=== PATIENT | male | born 1955 | race American Indian/Alaskan Native ===

== ENCOUNTER 2017-01-10 01:28 | Emergency (ER) | payer MEDICARE ==
[2017-01-10] MEDS ORDERED: NACL 0.9% 1000 ML 1,000 ML IV ONE (03:59)
[2017-01-10 05:00] LABS: Hematocrit 31.3 % (35.5-45.6); Hemoglobin 10.5 gm/dl (11.8-15.2); Mean Corpuscular HGB Conc 34 % (32-34); Mean Corpuscular Hemoglobin 34 pg (28-32); Mean Corpuscular Volume 102 fl (84-94); Platelet Count 213 K/mm3 (140-440); Red Blood Count 3.06 M/mm3 (3.65-5.03); Red Cell Distribution Width 14.4 % (13.2-15.2); White Blood Count 4.7 K/mm3 (4.5-11.0)
[2017-01-10 05:09] LABS: Albumin 4.2 g/dL (3.9-5); Albumin/Globulin Ratio 1.3 %; Bilirubin,Total 0.3 mg/dL (0.1-1.2); Calcium 9.3 mg/dL (8.4-10.2); Chloride 97.9 mmol/L (98-107); Total Protein 7.5 g/dL (6.3-8.2)
[2017-01-10 05:55] LABS: Anisocytosis 1+; Blastocytes % (Manual) 0 %; Ovalocytes 1+
[2017-01-10 05:56] LABS: Diff Status Complete; Helmet Cells Few; Tear Drop Cells Few
[2017-01-10] MEDS ORDERED: MORPHINE IV ONE (12:28)
[2017-01-10] MEDS ORDERED: PROTONIX IV ONE (13:00)
--- NOTE | 2017-01-10 16:03 | Emergency Department Report ---
HPI - General Chief Complaint: GI Bleed Time Seen by Provider: 01/10/17 11:34 - HPI HPI: The patient is 61-year-old male presents for evaluation of abdominal pain. The patient reports lower abdominal pain and dark tar stools for the past one day. He states his abdominal pain has been moderate, 7/10 in severity, cramping in quality, constant since onset. He is not currently experiencing any rectal bleeding. The patient denies fever, chills, night sweats, diarrhea, dysuria, hematuria, hematemesis, epistaxis, or easy bruising or bleeding. ED Past Medical Hx - Past Medical History Previous Medical History?: Yes Hx Hypertension: Yes Hx CVA: Yes (x2) Hx Heart Attack/AMI: Yes (x4) Hx Congestive Heart Failure: No Hx Diabetes: Yes Hx Renal Disease: Yes (end-stage renal disease) Hx Seizures: Yes Hx Asthma: No Hx COPD: No Additional medical history: Cardiac Stents, dialysis M-W-F - Surgical History Past Surgical History?: Yes Hx Coronary Stent: Yes Additional Surgical History: Cardiac stents 3 months ago 08/22? av graft to left arm - Social History Smoking Status: Never Smoker Substance Use Type: None - Medications Home Medications: Home Medications Medication Instructions Recorded Confirmed Last Taken Type Calcium Acetate 1,334 mg PO TID 05/14/13 12/30/16 Unknown History Aspirin [Aspirin BABY CHEW TAB] 81 mg PO DAILY 03/02/14 12/30/16 03/02/14 09:00 History amLODIPine [Norvasc] 10 mg PO DAILY 03/02/14 12/30/16 03/02/14 09:00 History Rosuvastatin (Nf) [Crestor] 20 mg PO QHS #1 tablet 03/08/14 12/30/16 Unknown Rx diphenhydrAMINE [Benadryl CAP] 50 mg PO Q8HR PRN #30 capsule 12/16/16 12/30/16 Unknown Rx HYDROcodone/ACETAMINOPHEN [[place] 1 each PO Q4-6H PRN #12 tablet 12/31/16 Unknown Rx 5-325 Tablet] hydrOXYzine HCL [Atarax] 25 mg PO Q6H PRN #20 tablet 12/31/16 Unknown Rx HYDROcodone/APAP 7.5-325 [[place] 1 each PO Q8HR PRN #10 tablet 01/10/17 Unknown Rx 7.5-325 mg TAB] Omeprazole Magnesium [PriLOSEC Otc] 20 mg PO QDAY #14 tablet. 01/10/17 Unknown Rx Ondansetron [Zofran TAB] 4 mg PO Q8HR PRN #15 tablet 01/10/17 Unknown Rx ED Review of Systems ROS: Stated complaint: ABD AND LOWER BACK PAIN Other details as noted in HPI Constitutional: denies: fever ENT: denies: throat or neck pain Respiratory: denies: cough, shortness of breath Cardiovascular: denies: chest pain Endocrine: denies unexplained weight loss or gain Gastrointestinal: reports abdominal pain, nausea, dark stools Genitourinary: denies: dysuria Musculoskeletal: denies: leg swelling Skin: denies: rash Neurological: denies: headache Hematological/Lymphatic: denies: easy bleeding or easy bruising Psych: denies sadness or hopelessness Physical Exam - Physical Exam Vital Signs: Vital Signs 01/10/17 01/10/17 01/10/17 03:46 10:16 10:24 Temperature 98.1 F 98.4 F Pulse Rate 79 84 79 Respiratory 18 14 22 Rate Blood Pressure 143/78 Blood Pressure 133/70 [Right] O2 Sat by Pulse 96 97 Oximetry 01/10/17 01/10/17 01/10/17 10:30 11:00 11:30 Temperature Pulse Rate 80 80 76 Respiratory 16 16 15 Rate Blood Pressure 133/70 150/78 152/75 Blood Pressure [Right] O2 Sat by Pulse 98 90 97 Oximetry 01/10/17 01/10/17 12:00 13:01 Temperature Pulse Rate 81 77 Respiratory 17 13 Rate Blood Pressure 156/78 152/75 Blood Pressure [Right] O2 Sat by Pulse 95 94 Oximetry Physical Exam: General: well-nourished, well-developed, no acute distress Head: Normocephalic, atraumatic Eyes: normal sclera ENT: Mucous membranes are pink and moist Neck: trachea midline, neck supple, No neck stiffness, no cervical adenopathy Respiratory: Breath sounds equal bilaterally, no wheezing, rales, or rhonchi Cardio: S1 and S2 present, no murmurs, rubs, gallops, capillary refill is brisk Abdomen: Normoactive bowel sounds, soft abdomen, generalized tenderness, no rigidity, no guarding or rebound tenderness Chest WALL/Back: No tenderness to palpation of the chest wall, no CVA tenderness with percussion Musc: No pitting edema Skin: No rash Neuro: no facial drooping, normal speech Psych: Normal affect ED Course Vital Signs 01/10/17 01/10/17 01/10/17 03:46 10:16 10:24 Temperature 98.1 F 98.4 F Pulse Rate 79 84 79 Respiratory 18 14 22 Rate Blood Pressure 143/78 Blood Pressure 133/70 [Right] O2 Sat by Pulse 96 97 Oximetry 01/10/17 01/10/17 01/10/17 10:30 11:00 11:30 Temperature Pulse Rate 80 80 76 Respiratory 16 16 15 Rate Blood Pressure 133/70 150/78 152/75 Blood Pressure [Right] O2 Sat by Pulse 98 90 97 Oximetry 01/10/17 01/10/17 12:00 13:01 Temperature Pulse Rate 81 77 Respiratory 17 13 Rate Blood Pressure 156/78 152/75 Blood Pressure [Right] O2 Sat by Pulse 95 94 Oximetry ED Medical Decision Making - Lab Data Result diagrams: 01/10/17 04:21 01/10/17 04:21 - Medical Decision Making The patient was seen and examined by myself. The patient is placed on a tar heel and continuous pulse ox. On initial evaluation, the patient was found to be in no distress. Evaluation orders are placed. IV access is established and the patient is given 1 L normal saline fluid bolus and Zofran for nausea, and IV analgesic for pain. He is given IV Protonix for treatment of GI bleed. Lab results revealed elevated creatinine level, consistent with no history of end-stage joint disease, and otherwise labs were non-concerning including hemoglobin, hematocrit, platelet level. The patient was reevaluated and reported that their symptoms were improved. As the patient has normal vital signs, and has stable hemoglobin, hematocrit, platelet level, and has experienced no active bleeding during 4 hour ED course and observation, the patient is stable for discharge with outpatient follow-up. The patient is given follow-up and return instructions. The patient expressed understanding and agreed with the plan. The patient is discharged in stable condition. Critical care attestation.: If time is entered above; I have spent that time in minutes in the direct care of this critically ill patient, excluding procedure time. ED Disposition Clinical Impression: End stage renal disease on dialysis, Abdominal pain, acute, epigastric, Acute lower GI bleeding Disposition: TO HOME OR SELFCARE Is pt being admited?: No Does the pt Need Aspirin: No Condition: Stable Instructions: Chronic Kidney Disease (ED), Gastrointestinal Bleeding (ED), Acute Abdominal Pain (ED) Referrals: TREY JOHNSON MD [Primary Care Provider] - 3-5 Days GELA VAUGHN MD [Staff Physician] - 3-5 Days Time of Disposition: 15:47
[2017-01-10 16:16] VITALS: BP 148/84
== END 2017-01-10 16:20 | disposition home or self-care (01) ==
LOC: ED 01:28
DX: K92.2 Gastrointestinal hemorrhage, unspecified (principal); I12.0 Hypertensive chronic kidney disease with stage 5 chronic kidney disease or end stage renal disease; E11.22 Type 2 diabetes mellitus with diabetic chronic kidney disease; N18.6 End stage renal disease; I25.2 Old myocardial infarction; Z99.2 Dependence on renal dialysis; Z95.1 Presence of aortocoronary bypass graft; Z86.73 Personal history of transient ischemic attack (TIA), and cerebral infarction without residual deficits; Z79.82 Long term (current) use of aspirin
CPT/HCPCS: 36415; 80053; 82962; 83690; 85007; 85025; 85610; 85730; 86850; 86900; 86901; 93005; 93010; 96374; 96375; 99284; C9113; J2270

== ENCOUNTER 2017-02-05 09:34 | Inpatient (IN) | payer MEDICARE ==
[2017-02-05] MEDS ORDERED: NORCO 5/325 PO ONE (10:40)
--- NOTE | 2017-02-05 10:42 | XRay Report ---
AP CHEST: HISTORY: Short of breath Subtle peribronchial opacities have developed in both lower lung zones since 12/27/16. This probably represents mild atelectatic changes although early infiltrates could be considered. The upper lung zones are clear. No pleural effusion or pneumothorax. Heart and mediastinal structures remain unremarkable. IMPRESSION: Mild bibasilar opacities have developed which probably represent atelectatic changes. See above.
[2017-02-05 10:43] LABS: Basophils # (Auto) 0.1 K/mm3 (0.0-0.1); Basophils % (Auto) 0.9 % (0.0-1.8); Eosinophils # (Auto) 0.4 K/mm3 (0.0-0.4); Hematocrit 29.7 % (35.5-45.6); Lymphocytes # (Auto) 1.2 K/mm3 (1.2-5.4); Lymphocytes % (Auto) 17.7 % (13.4-35.0); Mean Corpuscular HGB Conc 34 % (32-34); Mean Corpuscular Hemoglobin 35 pg (28-32); Mean Corpuscular Volume 103 fl (84-94); Monocytes # (Auto) 0.8 K/mm3 (0.0-0.8); Monocytes % (Auto) 11.6 % (0.0-7.3); Platelet Count 220 K/mm3 (140-440); Red Blood Count 2.88 M/mm3 (3.65-5.03); Red Cell Distribution Width 14.9 % (13.2-15.2)
--- NOTE | 2017-02-05 10:52 | Emergency Department Report ---
ED Shortness of Breath HPI - General Chief Complaint: Dyspnea/Respdistress Stated Complaint: SOB Time Seen by Provider: 02/05/17 10:13 Source: patient, family, old records reviewed (seen by Dr Gamez workforce services representative during nov admission) Mode of arrival: Stretcher Limitations: No Limitations - History of Present Illness Initial Comments: 61-year-old male with a past medical history of end-stage renal disease on dialysis, COPD, diabetes, CAD with stents, and diabetes presents to the hospital because of shortness with 2 days. Patient missed 2 dialysis treatments because he was in the process of changing dialysis centers and because of the holiday schedule. Positive orthopnea, dyspnea on exertion, abdominal swelling and leg edema. Patient denies chest pain. Complains of 8/10 headache right side. Cough productive of white sputum. No fever reported. Patient was due to go to dialysis today but developed dyspnea and therefore came to the ER instead. Neprhrologist DR Aceves - Related Data Home Medications Medication Instructions Recorded Confirmed Last Taken Calcium Acetate 1,334 mg PO TID 05/14/13 12/30/16 Unknown Aspirin [Aspirin BABY CHEW TAB] 81 mg PO DAILY 03/02/14 12/30/16 03/02/14 09:00 amLODIPine [Norvasc] 10 mg PO DAILY 03/02/14 12/30/16 03/02/14 09:00 Previous Rx's Medication Instructions Recorded Last Taken Type Rosuvastatin (Nf) [Crestor] 20 mg PO QHS #1 tablet 03/08/14 Unknown Rx diphenhydrAMINE [Benadryl CAP] 50 mg PO Q8HR PRN #30 capsule 12/16/16 Unknown Rx HYDROcodone/ACETAMINOPHEN [[place] 1 each PO Q4-6H PRN #12 tablet 12/31/16 Unknown Rx 5-325 Tablet] hydrOXYzine HCL [Atarax] 25 mg PO Q6H PRN #20 tablet 12/31/16 Unknown Rx HYDROcodone/APAP 7.5-325 [[place] 1 each PO Q8HR PRN #10 tablet 01/10/17 Unknown Rx 7.5-325 mg TAB] Omeprazole Magnesium [PriLOSEC Otc] 20 mg PO QDAY #14 tablet. 01/10/17 Unknown Rx Ondansetron [Zofran TAB] 4 mg PO Q8HR PRN #15 tablet 01/10/17 Unknown Rx Allergies Allergy/AdvReac Type Severity Reaction Status Date / Time No Known Allergies Allergy Verified 05/14/13 08:24 ED Review of Systems ROS: Stated complaint: SOB Other details as noted in HPI Comment: All other systems reviewed and negative Other: Constitutional: No fevers chills Eyes: No eye pain visual changes ENT: No ear pain or throat pain Neck: Denies pain Respiratory: As per HPI Cardiovascular: Denies chest pain, palpitations, syncope GI: Denies abdominal pain, nausea, vomiting, diarrhea : Patient makes very little urine daily Musculoskeletal: Denies back pain Skin: Denies rash, lesions, erythema Neurologic: Denies numbness, weakness Psychiatric: Denies suicidal ideation, hallucinations ED Past Medical Hx - Past Medical History Previous Medical History?: Yes Hx Hypertension: Yes Hx CVA: Yes (x2) Hx Heart Attack/AMI: Yes (x4) Hx Congestive Heart Failure: No Hx Diabetes: Yes Hx Renal Disease: Yes (end-stage renal disease) Hx Seizures: Yes Hx Asthma: No Hx COPD: No Additional medical history: Cardiac Stents, dialysis M-W- - Surgical History Past Surgical History?: Yes Hx Coronary Stent: Yes Additional Surgical History: Cardiac stents 3 months ago 08/22? av graft to left arm - Social History Smoking Status: Never Smoker Substance Use Type: None - Medications Home Medications: Home Medications Medication Instructions Recorded Confirmed Last Taken Type Calcium Acetate 1,334 mg PO TID 05/14/13 12/30/16 Unknown History Aspirin [Aspirin BABY CHEW TAB] 81 mg PO DAILY 03/02/14 12/30/16 03/02/14 09:00 History amLODIPine [Norvasc] 10 mg PO DAILY 03/02/14 12/30/16 03/02/14 09:00 History Rosuvastatin (Nf) [Crestor] 20 mg PO QHS #1 tablet 03/08/14 12/30/16 Unknown Rx diphenhydrAMINE [Benadryl CAP] 50 mg PO Q8HR PRN #30 capsule 12/16/16 12/30/16 Unknown Rx HYDROcodone/ACETAMINOPHEN [[place] 1 each PO Q4-6H PRN #12 tablet 12/31/16 Unknown Rx 5-325 Tablet] hydrOXYzine HCL [Atarax] 25 mg PO Q6H PRN #20 tablet 12/31/16 Unknown Rx HYDROcodone/APAP 7.5-325 [[place] 1 each PO Q8HR PRN #10 tablet 01/10/17 Unknown Rx 7.5-325 mg TAB] Omeprazole Magnesium [PriLOSEC Otc] 20 mg PO QDAY #14 tablet. 01/10/17 Unknown Rx Ondansetron [Zofran TAB] 4 mg PO Q8HR PRN #15 tablet 01/10/17 Unknown Rx ED Physical Exam - General Limitations: No Limitations - Other Other exam information: General: No limitations, patient is alert in no acute distress Head exam: Atraumatic, normocephalic Eyes exam: Normal appearance, ENT: Moist mucous membrane, normal oropharynx Neck exam: Normal inspection, full range of motion, no meningismus nontender Respiratory exam: Clear to auscultation bilateral, no wheezes, rales, crackles Cardiovascular: Normal rate and rhythm, positive throughout the left arm AV fistula Abdomen: Soft, distended, and nontender, with normal bowel sounds, no rebound, or guarding Extremity: Full range of motion normal inspection no deformity, trace to 1+ pitting edema to the lower extremity Back: Normal Inspection, full range of motion, no tenderness Neurologic: Alert, oriented x3, cranial nerves intact, no motor or sensory deficit Psychiatric: normal affect, normal mood Skin: Warm, dry, intact ED Course Vital Signs 02/05/17 02/05/17 09:57 11:37 Temperature 97.8 F Pulse Rate 79 Respiratory 20 22 Rate Blood Pressure 164/92 O2 Sat by Pulse 97 Oximetry - Reevaluation(s) Reevaluation #1: 02/05/17 11:37 [place] order for headache Calcium gluconate, albuterol, insulin/glucose, and sodium bicarbonate ordered for hyperkalemia - Consultations Consultation #1: 02/05/17 11:52 case d/w Dr Aceves, will arrange for dialysis today ED Medical Decision Making - Lab Data Result diagrams: 02/05/17 10:17 02/05/17 10:17 Lab Results 02/05/17 02/05/17 Range/Units 10:17 10:17 WBC 6.9 (4.5-11.0) K/mm3 RBC 2.88 L (3.65-5.03) M/mm3 Hgb 10.0 L (11.8-15.2) gm/dl Hct 29.7 L (35.5-45.6) % MCV 103 H (84-94) fl MCH 35 H (28-32) pg MCHC 34 (32-34) % RDW 14.9 (13.2-15.2) % Plt Count 220 (140-440) K/mm3 Lymph % (Auto) 17.7 (13.4-35.0) % [place] % (Auto) 11.6 H (0.0-7.3) % Eos % (Auto) 6.0 H (0.0-4.3) % Baso % (Auto) 0.9 (0.0-1.8) % Lymph # 1.2 (1.2-5.4) K/mm3 [place] # 0.8 (0.0-0.8) K/mm3 Eos # 0.4 (0.0-0.4) K/mm3 Baso # 0.1 (0.0-0.1) K/mm3 Seg Neutrophils % 63.8 (40.0-70.0) % Seg Neutrophils # 4.4 (1.8-7.7) K/mm3 Sodium 139 (137-145) mmol/L Potassium 6.6 H* (3.6-5.0) mmol/L Chloride 98.5 (98-107) mmol/L Carbon Dioxide 20 L (22-30) mmol/L Anion Gap 27 mmol/L BUN 112 H (9-20) mg/dL Creatinine 14.4 H (0.8-1.5) mg/dL Estimated GFR 4 ml/min BUN/Creatinine Ratio 8 % Glucose 87 (75-100) mg/dL Calcium 9.2 (8.4-10.2) mg/dL Potassium slightly hemolysis reported - EKG Data -: EKG Interpreted by Me (anteroseptal infarct old) EKG shows normal: sinus rhythm, axis (34), QRS complexes (90), ST-T waves (flat lat t waves) Rate: normal (80) - EKG Data When compared to previous EKG there are: no significant change (01/10/17) - Radiology Data Radiology results: report reviewed read radiologist cxr: mild bibasilal opacities have deleloped which probably represent atelectacic changes - Medical Decision Making Plan to admit patient to the hospital for hyperkalemia and uremia associated with dialysis noncompliance. Hospitalist and nephrology and nephrology informed - Differential Diagnosis volum overload, hyperkalemia, uremia, noncompliance with dialysis, pe, chf Critical Care Time: No Critical care attestation.: If time is entered above; I have spent that time in minutes in the direct care of this critically ill patient, excluding procedure time. ED Disposition Clinical Impression: ESRD needing dialysis, Hyperkalemia, Uremia, Dyspnea, IDDM (insulin dependent diabetes mellitus), HTN (hypertension) Disposition: OP ADMIT IP TO THIS HOSP Is pt being admited?: Yes Condition: Stable Instructions: Hypertension (ED) Time of Disposition: 11:39 (Dr Oneill/hosp)
[2017-02-05 11:24] LABS: Calcium 9.2 mg/dL (8.4-10.2)
[2017-02-05] MEDS ORDERED: D50W (25GM) Syringe IV ONE ×2 (11:35→12:45)
[2017-02-05] MEDS ORDERED: PROVENTIL IH ONE (11:36)
[2017-02-05] MEDS ORDERED: SODIUM BICARBONATE IV ONE ×2 (12:00→12:45)
[2017-02-05] MEDS ORDERED: CALCIUM GLUCONATE 1,000 MG in NACL 0.9% 100 ML IV ONE (12:00)
[2017-02-05] MEDS ORDERED: TYLENOL PO PRN (15:51)
[2017-02-05] MEDS ORDERED: MORPHINE IV PRN ×2 (15:51)
[2017-02-05] MEDS ORDERED: ZOFRAN IV PRN (15:51)
[2017-02-05] MEDS ORDERED: MILK OF MAGNESIA PO PRN (15:51)
[2017-02-05] MEDS ORDERED: PROVENTIL IH PRN (15:51)
[2017-02-05] MEDS ORDERED: AMBIEN PO PRN (15:51)
[2017-02-05] MEDS ORDERED: DULCOLAX PR PRN (15:51)
[2017-02-05] MEDS ORDERED: ZOFRAN PO PRN (15:58)
[2017-02-05] MEDS ORDERED: ATARAX PO PRN (15:58)
[2017-02-05] MEDS ORDERED: BENADRYL PO PRN (16:00)
--- NOTE | 2017-02-05 16:01 | History and Physical Report ---
History of Present Illness Date of examination: 02/05/17 Date of admission: 02/05/17 11:44 Chief complaint: Dyspnea/ Resp distress History of present illness: 61-year-old male with a past medical history of end-stage renal disease on dialysis, COPD, diabetes, CAD with stents, and diabetes presents to the hospital because of shortness with 2 days. Patient missed 2 dialysis treatments because he was in the process of changing dialysis centers and because of the holiday schedule. Positive orthopnea, dyspnea on exertion, abdominal swelling and leg edema. Patient denies chest pain. Complains of 8/10 headache right side. Cough productive of white sputum. No fever reported. Patient was due to go to dialysis today but developed dyspnea and therefore came to the ER instead. Electronic Technologist DR Aceves Past History Past Medical History: acute NH (X4), diabetes, hypertension, renal failure, seizures, stroke (X2) Past Surgical History: Other (Cardiac stents, av graft to l arm) Social history: other (never smoked) Medications and Allergies Allergies Allergy/AdvReac Type Severity Reaction Status Date / Time No Known Allergies Allergy Verified 05/14/13 08:24 Home Medications Medication Instructions Recorded Confirmed Last Taken Type Aspirin [Aspirin BABY CHEW TAB] 81 mg PO DAILY 03/02/14 02/05/17 03/02/14 09:00 History amLODIPine [Norvasc] 10 mg PO DAILY 03/02/14 02/05/17 03/02/14 09:00 History diphenhydrAMINE [Benadryl CAP] 50 mg PO Q8HR PRN #30 capsule 12/16/16 02/05/17 Unknown Rx hydrOXYzine HCL [Atarax] 25 mg PO Q6H PRN #20 tablet 12/31/16 02/05/17 Unknown Rx HYDROcodone/APAP 7.5-325 [[place] 1 each PO Q8HR PRN #10 tablet 01/10/17 02/05/17 Unknown Rx 7.5-325 mg TAB] Omeprazole Magnesium [PriLOSEC Otc] 20 mg PO QDAY #14 tablet. 01/10/17 Unknown Rx Ondansetron [Zofran TAB] 4 mg PO Q8HR PRN #15 tablet 01/10/17 02/05/17 Unknown Rx Review of Systems Constitutional: no weight loss, no weight gain, no fever Ears, nose, mouth and throat: no ear pain, no ear discharge, no headache Cardiovascular: shortness of breath, dyspnea on exertion, no chest pain Respiratory: shortness of breath, dyspnea on exertion, no cough, no congestion, no wheezing Genitourinary Male: no dysuria, no hematuria Rectal: no pain, no incontinence Musculoskeletal: no neck stiffness, no neck pain, no shooting arm pain Integumentary: no rash, no redness, no sores Neurological: other, no head injury, no syncope, no memory loss Psychiatric: no anxiety, no change in sleep habits, no depression Hematologic/Lymphatic: no easy bruising, no easy bleeding Allergic/Immunologic: no urticaria, no allergic rhinitis Exam - Constitutional Vitals: Temp Pulse Resp BP Pulse Ox 97.8 F 81 18 178/91 98 02/05/17 09:57 02/05/17 12:00 02/05/17 12:00 02/05/17 12:32 02/05/17 12:32 General appearance: Present: mild distress, well-nourished - EENT Eyes: Present: PERRL ENT: hearing intact, clear oral mucosa - Neck Neck: Present: supple, normal ROM - Respiratory Respiratory effort: normal Respiratory: bilateral: CTA - Cardiovascular Heart Sounds: Present: S1 & S2. Absent: rub, click - Extremities Extremities: pulses symmetrical Extremity abnormal: edema (trace) Peripheral Pulses: within normal limits - Abdominal General gastrointestinal: Present: soft, non-tender, distended, normal bowel sounds Male genitourinary: Present: deferred - Rectal Rectal Exam: deferred - Integumentary Integumentary: Present: clear, warm, dry - Musculoskeletal Musculoskeletal: gait normal, strength equal bilaterally - Psychiatric Psychiatric: appropriate mood/affect, intact judgment & insight - Neurologic Neurologic: CNII-XII intact, moves all extremities - Allied Health Allied health notes reviewed: nursing Results - Labs CBC & Chem 7: 02/05/17 10:17 02/05/17 10:17 Labs: Laboratory Last Values WBC 6.9 K/mm3 (4.5-11.0) 02/05/17 10:17 RBC 2.88 M/mm3 (3.65-5.03) L 02/05/17 10: Hgb 10.0 gm/dl (11.8-15.2) L 02/05/17 10:17 Hct 29.7 % (35.5-45.6) L 02/05/17 10:17 MCV 103 fl (84-94) H 02/05/17 10:17 MCH 35 pg (28-32) H 02/05/17 10:17 MCHC 34 % (32-34) 02/05/17 10:17 RDW 14.9 % (13.2-15.2) 02/05/17 10:17 Plt Count 220 K/mm3 (140-440) 02/05/17 10:17 Lymph % (Auto) 17.7 % (13.4-35.0) 02/05/17 10:17 [place] % (Auto) 11.6 % (0.0-7.3) H 02/05/17 10:17 Eos % (Auto) 6.0 % (0.0-4.3) H 02/05/17 10:17 Baso % (Auto) 0.9 % (0.0-1.8) 02/05/17 10:17 Lymph # 1.2 K/mm3 (1.2-5.4) 02/05/17 10:17 [place] # 0.8 K/mm3 (0.0-0.8) 02/05/17 10:17 Eos # 0.4 K/mm3 (0.0-0.4) 02/05/17 10:17 Baso # 0.1 K/mm3 (0.0-0.1) 02/05/17 10:17 Seg Neutrophils % 63.8 % (40.0-70.0) 02/05/17 10:17 Seg Neutrophils # 4.4 K/mm3 (1.8-7.7) 02/05/17 10:17 Sodium 139 mmol/L (137-145) 02/05/17 10:17 Potassium 6.6 mmol/L (3.6-5.0) H* 02/05/17 10:17 Chloride 98.5 mmol/L (98-107) 02/05/17 10:17 Carbon Dioxide 20 mmol/L (22-30) L 02/05/17 10:17 Anion Gap 27 mmol/L 02/05/17 10:17 BUN 112 mg/dL (9-20) H 02/05/17 10:17 Creatinine 14.4 mg/dL (0.8-1.5) H 02/05/17 10:17 Estimated GFR 4 ml/min 02/05/17 10:17 BUN/Creatinine Ratio 8 % 02/05/17 10:17 Glucose 87 mg/dL (75-100) 02/05/17 10:17 POC Glucose 106 (70-105) H 02/05/17 12:53 Calcium 9.2 mg/dL (8.4-10.2) 02/05/17 10:17 NT-Pro-B Natriuret Pep 07724 pg/mL (0-900) H 02/05/17 10:24 - Imaging and Cardiology Chest x-ray: report reviewed Assessment and Plan Advance Directives: Yes VTE prophylaxis?: Chemical Plan of care discussed with patient/family: Yes - Patient Problems (1) Hyperkalemia Current Visit: Yes Status: Acute Plan to address problem: Patient treated in ER with Insulin/D50W, Sodium Bicarb, Calium Gluconate, Possible emerging HD (2) ESRD needing dialysis Current Visit: Yes Status: Acute Plan to address problem: Possible emerging HD, nephrology consulted (3) Anemia Current Visit: Yes Status: Acute Plan to address problem: Likely of chronic disease, appears to be baseline compared to prior visits, will continue to monitor, transfuse if <7, consider Procrit with HD (4) Dyspnea Current Visit: Yes Status: Acute Plan to address problem: Due to fluid overload, possibly emerging HD, nephrology consulted, Strict I&O (5) CHF (congestive heart failure) Current Visit: Yes Status: Chronic Qualifiers: Congestive heart failure type: combined Congestive heart failure chronicity : chronic Qualified Code(s): I50.42 - Chronic combined systolic (congestive) and diastolic (congestive) heart failure Plan [place] address problem: [place] [address]. Increased ultrafiltration to remove excess volume. Echo ordered for EF and valve function (6) HTN (hypertension) Current Visit: Yes Status: Chronic Plan to address problem: Continue current home medications, will continue to monitor BP q shift (7) DVT prophylaxis Current Visit: No Status: Acute Plan to address problem: on Heparin
[2017-02-05] MEDS ORDERED: NACL 0.9% 100 ML IV PRN (16:49)
[2017-02-05] MEDS ORDERED: NACL 0.9 (PRIMING MACHINE ONLY DIALYSIS) MC ONE (17:56)
--- NOTE | 2017-02-05 20:22 | Consultation ---
History of Present Illness - Reason for Consult Consult date: 02/05/17 end stage renal disease Requesting physician: ROBERT KUMAR - History of Present Illness 61 yr old male with a history of end-stage renal disease on hemodialysis. Patient is known to our service but has been going to dialysis at [facility] dialysis [facility]. He presented on account of 2 days of progressively worsening shortness of breath and orthopnea. He said he is changing dialysis clinic but unfortunately the new clinic was not able to treat him until Friday -today. He however became short of breath last night and so came to the emergency room. No chest pain. No fever or chills. He missed dialysis on Friday and Friday. Also complains of right-sided headache and cough productive of whitish lower extremity swelling. He states that he is 14 Pounds above his dry weight. Past History Past Medical History: acute AR (X4), CAD, COPD, diabetes, hypertension, renal failure, seizures, stroke (X2) Past Surgical History: PTCA, Other (Cardiac stents, av graft to l arm, Surgical repair of rt ankle frx) Social history: , lives with family, other (never smoked). denies: smoking, alcohol abuse, prescription drug abuse, IV drug use Family history: CAD, cancer, diabetes, hypertension Medications and Allergies Allergies Allergy/AdvReac Type Severity Reaction Status Date / Time No Known Allergies Allergy Verified 05/14/13 08:24 Home Medications Medication Instructions Recorded Confirmed Last Taken Type Aspirin [Aspirin BABY CHEW TAB] 81 mg PO DAILY 03/02/14 02/05/17 03/02/14 09:00 History amLODIPine [Norvasc] 10 mg PO DAILY 03/02/14 02/05/17 03/02/14 09:00 History diphenhydrAMINE [Benadryl CAP] 50 mg PO Q8HR PRN #30 capsule 12/16/16 02/05/17 Unknown Rx hydrOXYzine HCL [Atarax] 25 mg PO Q6H PRN #20 tablet 12/31/16 02/05/17 Unknown Rx HYDROcodone/APAP 7.5-325 [[place] 1 each PO Q8HR PRN #10 tablet 01/10/17 02/05/17 Unknown Rx 7.5-325 mg TAB] Omeprazole Magnesium [PriLOSEC Otc] 20 mg PO QDAY #14 tablet.dr 01/10/17 Unknown Rx Ondansetron [Zofran TAB] 4 mg PO Q8HR PRN #15 tablet 01/10/17 02/05/17 Unknown Rx Active Meds: Active Medications Acetaminophen (Tylenol) 650 mg PO Q4H PRN PRN Reason: Pain MILD(1-3)/Fever >100.5/SAEED Albuterol (Proventil) 2.5 mg IH Q4HRT PRN PRN Reason: Shortness Of Breath Amlodipine Besylate (Norvasc) 10 mg PO DAILY GORDO Aspirin (Baby Aspirin) 81 mg PO DAILY GORDO Bisacodyl (Dulcolax) 10 mg NE QDAY PRN PRN Reason: Constipation unrelieved by MOM Heparin Sodium (Porcine) (Heparin) 5,000 unit SUB-Q Q8HR GORDO Hydroxyzine HCl (Atarax) 25 mg PO Q6H PRN PRN Reason: Itching Sodium Chloride (Nacl 0.9%) 100 mls @ 999 mls/hr IV JEANINE PRN PRN Reason: Hypotension Magnesium Hydroxide (Milk Of Magnesia) 30 ml PO Q4H PRN PRN Reason: Constipation Morphine Sulfate (Morphine) 2 mg IV Q4H PRN PRN Reason: Pain, Moderate (4-6) Morphine Sulfate (Morphine) 4 mg IV Q4H PRN PRN Reason: Pain , Severe (7-10) Ondansetron HCl (Zofran) 4 mg IV Q8H PRN PRN Reason: N/V unrelieved by Reglan Ondansetron HCl (Zofran) 4 mg PO Q8HR PRN PRN Reason: Nausea Pantoprazole Sodium (Protonix) 20 mg PO QDAY GORDO Zolpidem Tartrate (Ambien) 5 mg PO QHS PRN PRN Reason: Insomnia Review of Systems All systems: negative (Constitutional: no fever or chills. No anorexia or weight loss. HEENT: No sore throat or sinus drainage no hearing or vision impairment . Cardiovascular: No chest pain or palpitations, complaints of shortness of breath, and lower extremity swelling. No dizziness. Respiratory: See history of present illness. No, hemoptysis or wheezing. Gastrointestinal: Admits to nausea, vomiting, and abdominal pain. No diarrhea, Hematemesis or melena. Genitourinary: He still makes some urine. No frequency urgency dysuria or hematuria. hematologic: No abnormal bleeding or bruising. Integumentary: Admits to itching but no rash. Neurological: Admits to headaches headache no focal weakness or numbness, no syncope or seizures. Musculoskeletal: No joint pains no stiffness. Admits to cramping. Psychiatry: no anxiety or depression) Exam - Vital Signs Vital signs: Vital Signs Pulse Resp 80 24 02/05/17 09:51 02/05/17 09:51 - Physical Exam Narrative exam: Middle-aged -[place] male lying in bed in no acute distress HEENT: NCAT, pink oral mucous membrane Neck: Supple, no venous distention CVS: S1S2 RRR with systolic murmur, No rub or gallop Chest: Clear to auscultation Abdomen: Protuberant, soft, nontender, no organomegaly, bowel sounds are present Extremities: trace edema, no clubbing Back no deformity or tenderness Skin warm and dry, no rash Neuro: Awake, alert no focal deficits Results - Lab Results 02/05/17 10:17 02/05/17 10:17 Most recent lab results Calcium 9.2 mg/dL (8.4-10.2) 02/05/17 10:17 Assessment and Plan - Patient Problems (1) Hyperkalemia Current Visit: Yes Status: Acute Plan to address problem: Secondary to missed dialysis treatments. Repeat potassium in the morning (2) Uremia Current Visit: Yes Status: Acute Plan to address problem: Secondary to missed dialysis treatments. Should improve with regular dialysis (3) Acute pulmonary edema Current Visit: Yes Status: Acute Plan to address problem: Secondary to fluid overload secondary to end-stage renal disease. Improving with dialysis (4) Hypertensive chronic kidney disease with stage 5 chronic kidney disease or end stage renal disease Current Visit: Yes Status: Acute Plan to address problem: Follow-up blood pressure on current medications (5) Type 2 diabetes mellitus with diabetic nephropathy Current Visit: Yes Status: Acute Plan to address problem: Blood sugar management by primary attending (6) ESRD needing dialysis Current Visit: Yes Status: Acute Plan to address problem: Severe azotemia secondary to missed dialysis treatments. Urgent hemodialysis is being done. We'll dialyze again tomorrow. We'll make sure patient has arrangements for outpatient dialysis set up before his discharge. (7) Anemia in chronic kidney disease Current Visit: Yes Status: Acute Plan to address problem: Give erythropoietin on dialysis
[2017-02-05] MEDS ORDERED: BENADRYL PO ONE (23:58)
[2017-02-06 06:45] LABS: Basophils # (Auto) 0.1 K/mm3 (0.0-0.1); Basophils % (Auto) 1.2 % (0.0-1.8); Eosinophils # (Auto) 0.3 K/mm3 (0.0-0.4); Eosinophils % (Auto) 6.6 % (0.0-4.3); Hematocrit 29.9 % (35.5-45.6); Lymphocytes # (Auto) 1.2 K/mm3 (1.2-5.4); Lymphocytes % (Auto) 24.2 % (13.4-35.0); Mean Corpuscular HGB Conc 33 % (32-34); Mean Corpuscular Hemoglobin 34 pg (28-32); Mean Corpuscular Volume 103 fl (84-94); Monocytes # (Auto) 0.6 K/mm3 (0.0-0.8); Monocytes % (Auto) 13.3 % (0.0-7.3); Platelet Count 201 K/mm3 (140-440); Red Blood Count 2.91 M/mm3 (3.65-5.03); Red Cell Distribution Width 14.9 % (13.2-15.2)
[2017-02-06] MEDS: HEPARIN SUB-Q SCH ×3 (06:51→22:13)
[2017-02-06 07:01] LABS: Albumin 3.6 g/dL (3.9-5); Calcium 8.8 mg/dL (8.4-10.2)
[2017-02-06] MEDS ORDERED: NON-FORMULARY (Omeprazole Magnesium [Prilosec Otc] 20 MG) PO SCH (10:00)
[2017-02-06] MEDS ORDERED: NACL 0.9 (PRIMING MACHINE ONLY DIALYSIS) MC ONE (14:08)
--- NOTE | 2017-02-06 15:27 | Progress Note ---
Assessment and Plan Assessment and plan: 61-year-old male with a past medical history of end-stage renal disease on dialysis, COPD, diabetes, CAD with stents, and diabetes presents to the hospital because of shortness with 2 days. Patient missed 2 dialysis treatments because he was in the process of changing dialysis centers and because of the holiday schedule he missed 2 dialysis sessions. Positive orthopnea, dyspnea on exertion, abdominal swelling and leg edema. Patient denies chest pain. Complains of 8/10 headache right side. Cough productive of white sputum. No fever reported. Patient was due to go to dialysis today but developed dyspnea and therefore came to the ER instead. Policeman DR Aceves Hyperkalemia secondary to missed dialysis * Patient treated in ER with Insulin/D50W, Sodium Bicarb, Calium Gluconate, * Currently correctable monitor. ESRD needing dialysis * Patient dialyzed today. Anticipate His discharge in a.m. Anemia * Likely of chronic disease, appears to be baseline compared to prior visits, will continue to monitor, transfuse if <7, consider Procrit with HD Dyspnea * Due to fluid overload, possibly emerging HD, nephrology consulted, Strict I&O * Patient's reports history of 2 heart stents. We'll await echocardiogram evaluation. CHF (congestive heart failure) * Probable [place] [address]. * Increased ultrafiltration to remove excess volume. * Echo ordered for EF and valve function HTN (hypertension) * Continue current home medications, will continue to monitor BP q shift DVT prophylaxis on Heparin Plan of care discussed with the patient in detail. Anticipate discharge in a.m. post dialysis. History Interval history: Follow-up shortness of breath secondary to missed dialysis. Patient seen and examined today he is improved. Denies any chest pain nausea vomiting and diarrhea. Hospitalist Physical - Physical exam Narrative exam: VITAL SIGNS: Reviewed. GENERAL: The patient appeared well nourished and normally developed. Vital signs as documented. HEAD: No signs of head trauma. EYES: Pupils are equal. Extraocular motions intact. EARS: Hearing grossly intact. MOUTH: Oropharynx is normal. NECK: No adenopathy, no JVD. CHEST: Chest with diminished breath sounds bilaterally. No wheezes, rales, or rhonchi. CARDIAC: Regular rate and rhythm. S1 and S2, 2/5 murmurs, gallops, or rubs. VASCULAR: No Edema. Peripheral pulses normal and equal in all extremities. ABDOMEN: Soft, without detectable tenderness. No sign of distention. No rebound or guarding, and no masses palpated. Bowel Sounds normal. MUSCULOSKELETAL: Good range of motion of all major joints. Extremities without clubbing, cyanosis or edema. NEUROLOGIC EXAM: Alert and oriented x 3. No focal sensory or strength deficits. Speech normal. Follows commands. PSYCHIATRIC: Mood normal. SKIN: No rash or lesions. - Constitutional Vitals: Temp Pulse Resp BP Pulse Ox 97.8 F 75 18 143/77 97 02/06/17 10:20 02/06/17 13:15 02/06/17 10:20 02/06/17 13:15 02/06/17 07:41 General appearance: Present: mild distress, well-nourished Results - Labs CBC & Chem 7: 02/06/17 06:01 02/06/17 06:01 Labs: Laboratory Last Values WBC 4.8 K/mm3 (4.5-11.0) 02/06/17 06:01 RBC 2.91 M/mm3 (3.65-5.03) L 02/06/17 06:01 Hgb 10.0 gm/dl (11.8-15.2) L 02/06/17 06:01 Hct 29.9 % (35.5-45.6) L 02/06/17 06:01 MCV 103 fl (84-94) H 02/06/17 06:01 MCH 34 pg (28-32) H 02/06/17 06:01 MCHC 33 % (32-34) 02/06/17 06:01 RDW 14.9 % (13.2-15.2) 02/06/17 06:01 Plt Count 201 K/mm3 (140-440) 02/06/17 06:01 Lymph % (Auto) 24.2 % (13.4-35.0) 02/06/17 06:01 [place] % (Auto) 13.3 % (0.0-7.3) H 02/06/17 06:01 Eos % (Auto) 6.6 % (0.0-4.3) H 02/06/17 06:01 Baso % (Auto) 1.2 % (0.0-1.8) 02/06/17 06:01 Lymph # 1.2 K/mm3 (1.2-5.4) 02/06/17 06:01 [place] # 0.6 K/mm3 (0.0-0.8) 02/06/17 06:01 Eos # 0.3 K/mm3 (0.0-0.4) 02/06/17 06:01 Baso # 0.1 K/mm3 (0.0-0.1) 02/06/17 06:01 Seg Neutrophils % 54.7 % (40.0-70.0) 02/06/17 06:01 Seg Neutrophils # 2.6 K/mm3 (1.8-7.7) 02/06/17 06:01 Sodium 140 mmol/L (137-145) 02/06/17 06:01 Potassium 4.4 mmol/L (3.6-5.0) D 02/06/17 06:01 Chloride 94.6 mmol/L (98-107) L 02/06/17 06:01 Carbon Dioxide 28 mmol/L (22-30) D 02/06/17 06:01 Anion Gap 22 mmol/L 02/06/17 06:01 BUN 48 mg/dL (9-20) H 02/06/17 06:01 Creatinine 8.2 mg/dL (0.8-1.5) H 02/06/17 06:01 Estimated GFR 8 ml/min 02/06/17 06:01 BUN/Creatinine Ratio 6 % 02/06/17 06:01 Glucose 89 mg/dL (75-100) 02/06/17 06:01 POC Glucose 90 (70-105) 02/06/17 05:35 Calcium 8.8 mg/dL (8.4-10.2) 02/06/17 06:01 Phosphorus 5.60 mg/dL (2.5-4.5) H 02/06/17 06:01 Total Bilirubin 0.40 mg/dL (0.1-1.2) 02/06/17 06:01 AST 17 units/L (5-40) 02/06/17 06:01 ALT 11 units/L (7-56) 02/06/17 06:01 Alkaline Phosphatase 54 units/L (35-129) 02/06/17 06:01 NT-Pro-B Natriuret Pep 48808 pg/mL (0-900) H 02/05/17 10:24 Total Protein 7.0 g/dL (6.3-8.2) 02/06/17 06:01 Albumin 3.6 g/dL (3.9-5) L 02/06/17 06:01 Albumin/Globulin Ratio 1.1 % 02/06/17 06:01 - Imaging and Cardiology Chest x-ray: image reviewed ( bibasilar infiltrates possible atelectasis)
[2017-02-06] MEDS: BABY ASPIRIN PO SCH (16:02)
[2017-02-06] MEDS: NORVASC PO SCH (16:02)
[2017-02-06] MEDS: PROTONIX PO SCH (16:02)
--- NOTE | 2017-02-06 20:49 | Progress Note ---
Assessment and Plan - Patient Problems (1) Hyperkalemia Current Visit: Yes Status: Acute Plan to address problem: Secondary to missed dialysis treatments. Resolved postdialysis. Patient can be discharged home after dialysis tomorrow. He has been set up to start dialysis at [facility]. I will confirm when he should come for his next dialysis given the holiday on February 10. (2) Uremia Current Visit: Yes Status: Acute Plan to address problem: Secondary to missed dialysis treatments. Improved with dialysis (3) Acute pulmonary edema Current Visit: Yes Status: Acute Plan to address problem: Secondary to fluid overload secondary to end-stage renal disease. Improved with dialysis (4) Hypertensive chronic kidney disease with stage 5 chronic kidney disease or end stage renal disease Current Visit: Yes Status: Acute (5) Type 2 diabetes mellitus with diabetic nephropathy Current Visit: Yes Status: Acute (6) ESRD needing dialysis Current Visit: Yes Status: Acute (7) Anemia in chronic kidney disease Current Visit: Yes Status: Acute Subjective Date of service: 02/06/17 Principal diagnosis: ESRD Interval history: Patient seen lying in bed with his at the bedside. He feels much better. No chest pain or shortness of breath. No nausea or vomiting. Objective - Exam Narrative Exam: Middle-aged -[place] male lying in bed in no acute distress HEENT: NCAT, pink oral mucous membrane Neck: Supple, no venous distention CVS: S1S2 RRR with systolic murmur, No rub or gallop Chest: Clear to auscultation Abdomen: Protuberant, soft, nontender, no organomegaly, bowel sounds are present Extremities: trace edema, no clubbing Back no deformity or tenderness Skin warm and dry, no rash Neuro: Awake, alert no focal deficits - Vital Signs Vital signs: Vital Signs - 12hr 02/06/17 02/06/17 02/06/17 10:00 10:20 10:30 Temperature 97.8 F Pulse Rate 81 78 Respiratory 18 18 Rate Blood Pressure 148/81 175/79 02/06/17 02/06/17 02/06/17 10:45 11:00 11:15 Temperature Pulse Rate 80 81 80 Respiratory Rate Blood Pressure 162/89 162/84 149/82 02/06/17 02/06/17 02/06/17 11:30 11:45 12:00 Temperature Pulse Rate 83 76 84 Respiratory Rate Blood Pressure 162/87 146/84 152/88 02/06/17 02/06/17 02/06/17 12:15 12:30 12:45 Temperature Pulse Rate 77 86 78 Respiratory Rate Blood Pressure 130/83 132/77 148/85 02/06/17 02/06/17 02/06/17 13:00 13:15 15:43 Temperature 97.8 F Pulse Rate 77 75 Respiratory 18 Rate Blood Pressure 127/74 143/77 136/82 02/06/17 16:02 Temperature Pulse Rate 79 Respiratory Rate Blood Pressure - Lab 02/06/17 06:01 02/06/17 06:01 Most recent lab results Calcium 8.8 mg/dL (8.4-10.2) 02/06/17 06:01 Phosphorus 5.60 mg/dL (2.5-4.5) H 02/06/17 06:01
[2017-02-07 06:07] LABS: Hematocrit 32.3 % (35.5-45.6); Hemoglobin 10.8 gm/dl (11.8-15.2); Mean Corpuscular HGB Conc 33 % (32-34); Mean Corpuscular Hemoglobin 34 pg (28-32); Mean Corpuscular Volume 103 fl (84-94); Platelet Count 197 K/mm3 (140-440); Red Blood Count 3.15 M/mm3 (3.65-5.03); Red Cell Distribution Width 15.1 % (13.2-15.2)
[2017-02-07] MEDS: HEPARIN SUB-Q SCH ×2 (06:41→14:14)
[2017-02-07] MEDS: NORVASC PO SCH (09:48)
[2017-02-07] MEDS: BABY ASPIRIN PO SCH (09:48)
[2017-02-07] MEDS: PROTONIX PO SCH (09:48)
--- NOTE | 2017-02-07 09:55 | Discharge Summary ---
Providers - Providers Date of Admission: 02/05/17 11:44 Attending physician: VICTOR MANUEL DIANA MD 02/05/17 14:09 Consult to Physician [CONS] Urgent Consulting Provider: DIONNA VELEZ Reason For Exam: ESRD needing Dialysis Notified:: yes Primary care physician: OPERATIONS AND MAINTENANCE TECHNICIAN Hospitalization Reason for admission: shortness of breath Condition: Stable Hospital course: 61-year-old male with a past medical history of end-stage renal disease on dialysis, COPD, diabetes, CAD with stents, and diabetes presents to the hospital because of shortness with 2 days. Patient missed 2 dialysis treatments because he was in the process of changing dialysis centers and because of the holiday schedule he missed 2 dialysis sessions. Positive orthopnea, dyspnea on exertion, abdominal swelling and leg edema. Patient denies chest pain. Complains of 8/10 headache right side. Cough productive of white sputum. No fever reported. Patient was due to go to dialysis today but developed dyspnea and therefore came to the ER instead. Public Aid Eligibility Assistant DR Aceves. On admission the patient was treated with insulin D50 W sodium bicarbonate and calcium gluconate with good improvement. He was also subsequently dialyzed 2 days and the role with outpatient dialysis set up time and plan for the patient. He will have his next dialysis on Friday and information has been given to him. He has clinically improved with no further shortness of breath. No evidence of infectious process. Hyperkalemia secondary to missed dialysis ESRD needing dialysis Anemia * Likely of chronic disease, Dyspnea CHF (congestive heart failure) * Probable [place], [place] [address]. HTN (hypertension) * Continue current home medications, will continue to monitor BP q shift Acute respiratory failure secondary to volume overload Disposition: TO HOME OR SELFCARE Time spent for discharge: 35 mins Core Measure Documentation - Palliative Care Palliative Care/ Comfort Measures: Not Applicable - Core Measures Any of the following diagnoses?: none - VTE Discharge Requirements Deep Vein Thrombosis/Pulmonary Embolism Present on Admission: No Exam - Physical Exam Narrative exam: VITAL SIGNS: Reviewed. GENERAL: The patient appeared well nourished and normally developed. Vital signs as documented. HEAD: No signs of head trauma. EYES: Pupils are equal. Extraocular motions intact. EARS: Hearing grossly intact. MOUTH: Oropharynx is normal. NECK: No adenopathy, no JVD. CHEST: Chest with diminished breath sounds bilaterally. No wheezes, rales, or rhonchi. CARDIAC: Regular rate and rhythm. S1 and S2, 2/5 murmurs, gallops, or rubs. VASCULAR: No Edema. Peripheral pulses normal and equal in all extremities. ABDOMEN: Soft, without detectable tenderness. No sign of distention. No rebound or guarding, and no masses palpated. Bowel Sounds normal. MUSCULOSKELETAL: Good range of motion of all major joints. Extremities without clubbing, cyanosis or edema. NEUROLOGIC EXAM: Alert and oriented x 3. No focal sensory or strength deficits. Speech normal. Follows commands. PSYCHIATRIC: Mood normal. SKIN: No rash or lesions. - Constitutional Vitals: Temp Pulse Resp BP Pulse Ox 98.5 F 81 20 149/81 94 02/07/17 07:22 02/07/17 07:22 02/07/17 07:22 02/07/17 07:22 02/07/17 07:22 Plan Activity: advance as tolerated, fall precautions Diet: low salt, renal Special Instructions: record daily weights, record daily BP diary Follow up with: DEANNA PUENTE MD [Primary Care Provider] - 7 Days BONY ACEVES MD [Staff Physician] - 7 Days
--- NOTE | 2017-02-07 09:55 | Query- Heart Failure ---
Samir Horn____Treva Date:__02/07/2017 Slip Injector And Applicator/CDS:__Kavita Phone#:__[phone] Exercise your independent professional judgment when responding to query. Questions asked do not imply a particular answer is desired or expected. We greatly appreciate your clarification on this issue. Clinical Documentation States: 61 Year old male was admitted on 02/05/2017 because of shortness with 2 days. The Hospitalist (Dr. Tilley) progress note on 02/06/2017 states "CHF (congestive heart failure) * Probable systolic, [place] [address]. * Increased ultrafiltration to remove excess volume. * Echo ordered for EF and valve function." Clinical Findings Show: BNP:__11509 If possible, Please Clarify if you mean: Acuity: [ ] Acute [ ] Acute on Chronic [ ] Chronic Type: [ ] Systolic Heart Failure [ ] Diastolic Heart Failure [ ] Combined Heart Failure [ X] Other:___UNABLE TO DETERMIN. Echo not done. Present on Admission: [X ] Yes (Y) [ ] Clinically undeterminable (W) [ ] No (N) Please also document response in your Progress Notes and/or Discharge Summary and indicate if the condition was present on admission. [email or web address]
[2017-02-07] MEDS ORDERED: NACL 0.9% 100 ML IV PRN (11:00)
[2017-02-07] MEDS ORDERED: NACL 0.9 (PRIMING MACHINE ONLY DIALYSIS) MC ONE (11:58)
[2017-02-07] MEDS ORDERED: PHOSLO PO SCH (12:00)
[2017-02-07 21:15] VITALS: BP 154/98
== END 2017-02-07 17:00 | disposition home or self-care (01) | DRG 189 ==
LOC: ED 09:34 → 4A 11:44 → 3A 12:21
PROVIDERS: ADMIT Internal Medicine; ATTEND Internal Medicine
PROC: 5A1D70Z Performance of Urinary Filtration, Intermittent, Less than 6 Hours Per Day (ICD-10-PCS; principal; 2017-02-05)
PROC: 5A1D70Z Performance of Urinary Filtration, Intermittent, Less than 6 Hours Per Day (ICD-10-PCS; 2017-02-06)
PROC: 5A1D70Z Performance of Urinary Filtration, Intermittent, Less than 6 Hours Per Day (ICD-10-PCS; 2017-02-07)
DX: J96.00 Acute respiratory failure, unspecified whether with hypoxia or hypercapnia (principal); J81.0 Acute pulmonary edema; N18.6 End stage renal disease; I13.2 Hypertensive heart and chronic kidney disease with heart failure and with stage 5 chronic kidney disease, or end stage renal disease; I50.20 Unspecified systolic (congestive) heart failure; E87.70 Fluid overload, unspecified; E87.5 Hyperkalemia; D63.1 Anemia in chronic kidney disease; E11.21 Type 2 diabetes mellitus with diabetic nephropathy; Z99.2 Dependence on renal dialysis; I25.10 Atherosclerotic heart disease of native coronary artery without angina pectoris; I25.2 Old myocardial infarction; Z86.73 Personal history of transient ischemic attack (TIA), and cerebral infarction without residual deficits; E11.22 Type 2 diabetes mellitus with diabetic chronic kidney disease; Z95.5 Presence of coronary angioplasty implant and graft; Z79.82 Long term (current) use of aspirin; Z79.899 Other long term (current) drug therapy; Z87.81 Personal history of (healed) traumatic fracture; Z82.49 Family history of ischemic heart disease and other diseases of the circulatory system; Z83.3 Family history of diabetes mellitus; Z80.9 Family history of malignant neoplasm, unspecified
CPT/HCPCS: 36415; 71010; 80048; 80053; 82962; 83880; 84100; 85025; 85027; 93005; 93010; 94640; 96374; 96375; J0610; J1644; J1815; J2270; J7030

== ENCOUNTER 2017-03-20 16:01 | Emergency (ER) | payer MEDICARE ==
[2017-03-20] MEDS ORDERED: ZOFRAN IV ONE (20:58)
[2017-03-20] MEDS ORDERED: SUBLIMAZE IV ONE (20:58)
--- NOTE | 2017-03-20 21:04 | Emergency Department Report ---
HPI - General Chief Complaint: Abdominal Pain Time Seen by Provider: 03/20/17 20:50 - HPI HPI: Ramos 5 The patient is a 61-year-old male presenting with a chief complaint of abdominal pain. The patient states for the past 5 days she's had intermittent diffuse abdominal pain associated with nausea vomiting and frequent diarrhea. The patient describes pain as a "hurt." Patient denies recent antibiotics or fever. The patient has a history of end-stage renal disease states this week they frequently have to stop dialysis secondary to his diarrhea. The patient gets his pain he score of 10/10 Location: Abdomen Duration: 5 Days Quality: "Hurt" Severity: 10/10 Modifying factors: [see above] Context: [see above] Mode of transportation: EMS ED Past Medical Hx - Past Medical History Hx Hypertension: Yes Hx CVA: Yes (x2) Hx Heart Attack/AMI: Yes Hx Congestive Heart Failure: Yes Hx Diabetes: Yes Hx Renal Disease: Yes (end-stage renal disease) Hx Seizures: Yes Additional medical history: Cardiac Stents, dialysis M-W-F - Surgical History Hx Coronary Stent: Yes Additional Surgical History: Cardiac stents 3 months ago 08/22? av graft to left arm - Family History Family history: no significant - Social History Smoking Status: Never Smoker Substance Use Type: Marijuana - Medications Home Medications: Home Medications Medication Instructions Recorded Confirmed Last Taken Type Aspirin [Aspirin BABY CHEW TAB] 81 mg PO DAILY 03/02/14 02/28/17 03/02/14 09:00 History amLODIPine [Norvasc] 10 mg PO DAILY 03/02/14 02/28/17 03/02/14 09:00 History diphenhydrAMINE [Benadryl CAP] 50 mg PO Q8HR PRN #30 capsule 12/16/16 02/28/17 Unknown Rx hydrOXYzine HCL [Atarax] 25 mg PO Q6H PRN #20 tablet 12/31/16 02/28/17 Unknown Rx Omeprazole Magnesium [PriLOSEC Otc] 20 mg PO QDAY #14 tablet. 01/10/17 Unknown Rx Ondansetron [Zofran TAB] 4 mg PO Q8HR PRN #15 tablet 01/10/17 02/28/17 Unknown Rx HYDROcodone/APAP 7.5-325 [[place] 1 each PO Q8HR PRN #14 tablet 03/03/17 Unknown Rx 7.5-325 mg TAB] Sevelamer Carbonate [Renvela] 800 mg PO TIDWM #270 tablet 03/04/17 Unknown Rx Ciprofloxacin HCl [Ciprofloxacin 500 mg PO BID #14 tablet 03/20/17 Unknown Rx TAB] HYDROcodone/APAP 5-325 [[place] 1 - 2 each PO Q6HR PRN #14 tablet 03/20/17 Unknown Rx 5/325] metroNIDAZOLE [Flagyl] 500 mg PO Q8HR #21 tablet 03/20/17 Unknown Rx ED Review of Systems ROS: Stated complaint: ABDOMINAL PAIN Other details as noted in HPI Constitutional: denies: fever Gastrointestinal: abdominal pain, nausea, vomiting, diarrhea Physical Exam - Physical Exam Vital Signs: Vital Signs 03/20/17 16:07 Temperature 98.1 F Pulse Rate 66 Respiratory 16 Rate Blood Pressure 137/77 O2 Sat by Pulse 94 Oximetry Physical Exam: GENERAL: The patient is well-developed well-nourished male lying on stretcher not appearing to be in acute distress. [] HEENT: Normocephalic. Atraumatic. Extraocular motions are intact. Patient has moist mucous membranes. NECK: Supple. Trachea midline CHEST/LUNGS: There is no respiratory distress noted. HEART/CARDIOVASCULAR: Regular. There is no tachycardia. There is no gallop or rub. Grade 2/6 systolic murmur ABDOMEN: Abdomen is soft, with diffuse discomfort to palpation. Patient has normal bowel sounds. There is no abdominal distention. SKIN: There is no rash. There is no edema. There is no diaphoresis. NEURO: The patient is awake, alert, and oriented. The patient is cooperative. The patient has normal speech MUSCULOSKELETAL: There is no evidence of acute injury. ED Course Vital Signs 03/20/17 16:07 Temperature 98.1 F Pulse Rate 66 Respiratory 16 Rate Blood Pressure 137/77 O2 Sat by Pulse 94 Oximetry ED Medical Decision Making - Lab Data Result diagrams: 03/20/17 21:42 03/20/17 20:57 Laboratory Tests 03/20/17 03/20/17 20:57 21:42 WBC 7.7 RBC 3.21 L Hgb 10.5 L Hct 31.8 L MCV 99 H MCH 33 H MCHC 33 RDW 14.2 Plt Count 186 [place] % (Auto) Bicycle Inspector Eos % (Auto) 4.6 H [place] # 1.3 H Eos # 0.4 Baso # 0.1 Seg Neutrophils % 60.1 Seg Neutrophils # 4.6 Sodium 141 Potassium 3.8 Chloride 98.0 Carbon Dioxide 26 Anion Gap 21 BUN 39 H Creatinine 8.4 H Estimated GFR 8 BUN/Creatinine Ratio 5 Glucose 89 Calcium 9.1 Total Bilirubin 0.30 AST 15 ALT 8 Alkaline Phosphatase 67 Total Protein 7.1 Albumin 4.1 Albumin/Globulin Ratio 1.4 Lipase 20 - Radiology Data Radiology results: report reviewed (CT abdomen and pelvis), image reviewed (CT abdomen and pelvis) FINAL REPORT PROCEDURE: CT ABDOMEN PELVIS WO CON TECHNIQUE: Computerized axial tomography of the abdomen and pelvis was performed without intravenous contrast. This study is performed without intravascular contrast material and its sensitivity for abdominal and pelvic pathology, including neoplasms, inflammation, abscess, free fluid, thrombosis, arterial dissection and infarction, is reduced compared with a contrast enhanced study. HISTORY: diffuse abd pain, nausea vomiting and diarrhea COMPARISON: No prior studies are available for comparison. FINDINGS: Visualized lower thorax: There is platelike atelectasis or scarring in the left lower lobe. Heart is moderately enlarged. Liver: Normal size and attenuation. Spleen: Normal size and attenuation. Gallbladder and biliary system: The gallbladder is distended.. Pancreas: Normal. Adrenals: Normal. Kidneys: There is an exophytic 2.8 centimeter cyst projecting off the anterior right kidney. There are bilateral nonobstructing renal calculi present. Largest in the right kidney measures up to 3 millimeters. No hydronephrosis bilaterally. The ureters bilaterally just proximal to the ureterovesical junction are dilated. GI tract: There is a moderate dilatation of the colon with fluid to the level of the anorectal junction. There is diffuse colonic wall thickening and surrounding inflammation, compatible with diffuse nonspecific colitis. There may be more focal wall thickening at the anorectal junction, with limited evaluation due to lack of contrast. The appendix is visualized and does not appear inflamed. Small bowel loops do not appear abnormally dilated or inflamed. Lymph nodes and mesentery: Inguinal nodes measure up to 11 millimeters in short axis bilaterally. Vasculature: There is aortic and bilateral common iliac artery calcification. Mesenteric arterial calcification is also noted. Bladder: There is diffuse significant bladder wall thickening with numerous bladder diverticula present. Reproductive organs: Prostate gland measures 5.7 centimeters transverse. There is a fat containing right inguinal hernia Peritoneum: No free fluid. Musculoskeletal structures: There are lumbar spine degenerative disc and facet arthritic changes. Other: None. IMPRESSION: Findings are compatible with diffuse acute colitis, of uncertain etiology, possibly inflammatory, infectious, or ischemic. There may be more focal wall thickening at the anorectal junction. Recommend further evaluation to exclude a mass. Diffuse circumferential wall thickening of the urinary bladder with numerous bladder diverticula present. Correlate for bladder outlet obstruction. Other findings as above. Transcribed By: [facility] Dictated By: NINI CROCKER M.D. Electronically Authenticated By: NINI CROCKER M.D. Signed Date/Time: 03/20/171833 DD/ 33 TD/TT: 03/20/171833 - Medical Decision Making CT findings discussed with the patient. Importance of follow-up with a director of contracts for potential colonoscopy/further evaluation of anorectal junction thickening explained. Patient verbalized understanding - Differential Diagnosis gastroenteritis, C. difficile colitis, partial small bowel disruption Critical care attestation.: If time is entered above; I have spent that time in minutes in the direct care of this critically ill patient, excluding procedure time. ED Disposition Clinical Impression: Acute abdominal pain, Nausea vomiting and diarrhea, Acute colitis Disposition: - TO HOME OR SELFCARE Is pt being admited?: No Does the pt Need Aspirin: No Condition: Stable Instructions: Infectious Colitis (ED) Additional Instructions: Return to the emergency department immediately should you develop worsening symptoms, fever, inability to tolerate food or liquid or any other concerns. Prescriptions: Ciprofloxacin HCl [Ciprofloxacin TAB] 500 mg PO BID #14 tablet HYDROcodone/APAP 5-325 [[place] 5/325] 1 - 2 each PO Q6HR PRN #14 tablet PRN Reason: Pain metroNIDAZOLE [Flagyl] 500 mg PO Q8HR #21 tablet Referrals: THOM DA SILVA MD [Staff Physician] - 3-5 Days (Dr. Da Silva is a director of contracts. Please follow up with him for further evaluation) Time of Disposition: 00:00
[2017-03-20 21:39] LABS: Albumin 4.1 g/dL (3.9-5); Calcium 9.1 mg/dL (8.4-10.2)
[2017-03-20 21:48] LABS: Basophils # (Auto) 0.1 K/mm3 (0.0-0.1); Eosinophils # (Auto) 0.4 K/mm3 (0.0-0.4); Eosinophils % (Auto) 4.6 % (0.0-4.3); Hematocrit 31.8 % (35.5-45.6); Hemoglobin 10.5 gm/dl (11.8-15.2); Mean Corpuscular HGB Conc 33 % (32-34); Mean Corpuscular Hemoglobin 33 pg (28-32); Mean Corpuscular Volume 99 fl (84-94); Monocytes # (Auto) 1.3 K/mm3 (0.0-0.8); Platelet Count 186 K/mm3 (140-440); Red Blood Count 3.21 M/mm3 (3.65-5.03); Red Cell Distribution Width 14.2 % (13.2-15.2)
[2017-03-20 21:51] VITALS: BP 108/67
[2017-03-20 22:37] LABS: Anisocytosis 1+; Basophils % (Manual) 0 % (0.0-1.8); Platelet Estimate Consistent w Auto; Total Cells Counted 100
--- NOTE | 2017-03-20 22:39 | Cat Scan Report ---
FINAL REPORT PROCEDURE: CT ABDOMEN PELVIS WO CON TECHNIQUE: Computerized axial tomography of the abdomen and pelvis was performed without intravenous contrast. This study is performed without intravascular contrast material and its sensitivity for abdominal and pelvic pathology, including neoplasms, inflammation, abscess, free fluid, thrombosis, arterial dissection and infarction, is reduced compared with a contrast enhanced study. HISTORY: diffuse abd pain, nausea vomiting and diarrhea COMPARISON: No prior studies are available for comparison. FINDINGS: Visualized lower thorax: There is platelike atelectasis or scarring in the left lower lobe. Heart is moderately enlarged. Liver: Normal size and attenuation. Spleen: Normal size and attenuation. Gallbladder and biliary system: The gallbladder is distended.. Pancreas: Normal. Adrenals: Normal. Kidneys: There is an exophytic 2.8 centimeter cyst projecting off the anterior right kidney. There are bilateral nonobstructing renal calculi present. Largest in the right kidney measures up to 3 millimeters. No hydronephrosis bilaterally. The ureters bilaterally just proximal to the ureterovesical junction are dilated. GI tract: There is a moderate dilatation of the colon with fluid to the level of the anorectal junction. There is diffuse colonic wall thickening and surrounding inflammation, compatible with diffuse nonspecific colitis. There may be more focal wall thickening at the anorectal junction, with limited evaluation due to lack of contrast. The appendix is visualized and does not appear inflamed. Small bowel loops do not appear abnormally dilated or inflamed. Lymph nodes and mesentery: Inguinal nodes measure up to 11 millimeters in short axis bilaterally. Vasculature: There is aortic and bilateral common iliac artery calcification. Mesenteric arterial calcification is also noted. Bladder: There is diffuse significant bladder wall thickening with numerous bladder diverticula present. Reproductive organs: Prostate gland measures 5.7 centimeters transverse. There is a fat containing right inguinal hernia Peritoneum: No free fluid. Musculoskeletal structures: There are lumbar spine degenerative disc and facet arthritic changes. Other: None. IMPRESSION: Findings are compatible with diffuse acute colitis, of uncertain etiology, possibly inflammatory, infectious, or ischemic. There may be more focal wall thickening at the anorectal junction. Recommend further evaluation to exclude a mass. Diffuse circumferential wall thickening of the urinary bladder with numerous bladder diverticula present. Correlate for bladder outlet obstruction. Other findings as above.
== END 2017-03-21 00:27 | disposition home or self-care (01) ==
LOC: ED 16:01
DX: K52.9 Noninfective gastroenteritis and colitis, unspecified (principal); R11.2 Nausea with vomiting, unspecified; R19.7 Diarrhea, unspecified; R10.84 Generalized abdominal pain
CPT/HCPCS: 36415; 74176; 80053; 82140; 83690; 85007; 85025; 96374; 96375; 99284; J2405; J3010

== ENCOUNTER 2017-05-10 18:35 | Inpatient (IN) | payer MEDICARE ==
[2017-05-10] MEDS ORDERED: ASPIRIN PO ONE (19:13)
[2017-05-10] MEDS ORDERED: NACL 0.9% 500 ML 500 ML IV ONE (19:13)
[2017-05-10 19:47] LABS: Basophils # (Auto) 0.1 K/mm3 (0.0-0.1); Basophils % (Auto) 1.2 % (0.0-1.8); Eosinophils # (Auto) 0.2 K/mm3 (0.0-0.4); Eosinophils % (Auto) 3.5 % (0.0-4.3); Hematocrit 32.6 % (35.5-45.6); Hemoglobin 10.8 gm/dl (11.8-15.2); Lymphocytes % (Auto) 16.7 % (13.4-35.0); Mean Corpuscular HGB Conc 33 % (32-34); Mean Corpuscular Hemoglobin 32 pg (28-32); Mean Corpuscular Volume 96 fl (84-94); Monocytes # (Auto) 0.7 K/mm3 (0.0-0.8); Platelet Count 191 K/mm3 (140-440); Red Cell Distribution Width 15.7 % (13.2-15.2)
[2017-05-10 19:54] LABS: INR 0.95 (0.87-1.13)
[2017-05-10 20:11] LABS: Albumin 3.9 g/dL (3.9-5); Calcium 8.8 mg/dL (8.4-10.2)
[2017-05-10 20:35] LABS: Chol/HDL Ratio 2.14 %
--- NOTE | 2017-05-10 20:39 | XRay Report ---
FINAL REPORT EXAM: XR CHEST 1V AP HISTORY: Chest Pain TECHNIQUE: AP portable view of the chest PRIORS: CXR 02/28/2017 FINDINGS: Lines, tubes, and devices: N/A Lungs and pleura: Trachea is normal in position. There is mild new infiltrate in the left base. Otherwise, lungs are clear of pleural effusion, vascular congestion, or pneumothorax. Cardiomediastinal silhouette: Cardiac and mediastinal silhouettes are unremarkable. Other: Bony structures are intact. IMPRESSION: New mild infiltrate in the left base.
[2017-05-10] MEDS ORDERED: NORCO 5/325 PO ONE (21:14)
[2017-05-10] MEDS ORDERED: cefTRIAXone 1 GM in NACL 0.9% 20 ML IV ONE (21:15)
[2017-05-10] MEDS ORDERED: ZITHROMAX 500 MG in NACL 0.9% 250ML 250 ML IV ONE (21:15)
--- NOTE | 2017-05-10 21:40 | Emergency Department Report ---
ED Chest Pain HPI - General Chief Complaint: Chest Pain Stated Complaint: CHEST PAIN Time Seen by Provider: 05/10/17 19:12 Source: EMS Mode of arrival: Stretcher Limitations: Physical Limitation - History of Present Illness Initial Comments: Patient is a 62-year-old male with past medical history of coronary disease and end-stage renal disease who is presenting with chest pain. Patient states that the past 2 weeks he has been having chest pain after dialysis. Patient states his blood pressure will drop and has chest pressure. This improves throughout the day after dialysis is over. Patient states that his last dialysis yesterday and the difference today is that his chest pain never improved. Patient states heavy sensation as though those bricks on his chest. Patient denies any nausea vomiting diaphoresis. Patient does state that he feels dizzy. Patient states he has no fever but has had a cough that is nonproductive. Severity scale (0 -10): 7 Quality: tightness - Related Data Home Medications Medication Instructions Recorded Confirmed Last Taken Aspirin [Aspirin BABY CHEW TAB] 81 mg PO DAILY 03/02/14 02/28/17 03/02/14 09:00 amLODIPine [Norvasc] 10 mg PO DAILY 03/02/14 02/28/17 03/02/14 09:00 Previous Rx's Medication Instructions Recorded Last Taken Type diphenhydrAMINE [Benadryl CAP] 50 mg PO Q8HR PRN #30 capsule 12/16/16 Unknown Rx hydrOXYzine HCL [Atarax] 25 mg PO Q6H PRN #20 tablet 12/31/16 Unknown Rx Omeprazole Magnesium [PriLOSEC Otc] 20 mg PO QDAY #14 tablet. 01/10/17 Unknown Rx Ondansetron [Zofran TAB] 4 mg PO Q8HR PRN #15 tablet 01/10/17 Unknown Rx HYDROcodone/APAP 7.5-325 [[place] 1 each PO Q8HR PRN #14 tablet 03/03/17 Unknown Rx 7.5-325 mg TAB] Sevelamer Carbonate [Renvela] 800 mg PO TIDWM #270 tablet 03/04/17 Unknown Rx Ciprofloxacin HCl [Ciprofloxacin 500 mg PO BID #14 tablet 03/20/17 Unknown Rx TAB] HYDROcodone/APAP 5-325 [[place] 1 - 2 each PO Q6HR PRN #14 tablet 03/20/17 Unknown Rx 5/325] metroNIDAZOLE [Flagyl] 500 mg PO Q8HR #21 tablet 03/20/17 Unknown Rx Allergies Allergy/AdvReac Type Severity Reaction Status Date / Time No Known Allergies Allergy Verified 02/28/17 00:21 Heart Score - HEART Score History: Moderately suspicious EKG: Non-specific Age: 45-65 Risk factors: > 3 risk factors or hx of atherosclerotic disease Troponin: < normal limit HEART Score: 5 ED Review of Systems ROS: Stated complaint: CHEST PAIN Other details as noted in HPI Comment: All other systems reviewed and negative ED Past Medical Hx - Past Medical History Hx Hypertension: Yes Hx CVA: Yes (x2) Hx Heart Attack/AMI: Yes Hx Congestive Heart Failure: Yes Hx Diabetes: Yes Hx Renal Disease: Yes (end-stage renal disease) Hx Seizures: Yes Hx Asthma: No Hx COPD: No Additional medical history: Cardiac Stents, dialysis M-W-F - Surgical History Hx Coronary Stent: Yes Additional Surgical History: Cardiac stents 3 months ago 08/22? av graft to left arm - Social History Smoking Status: Unknown if ever smoked - Medications Home Medications: Home Medications Medication Instructions Recorded Confirmed Last Taken Type Aspirin [Aspirin BABY CHEW TAB] 81 mg PO DAILY 03/02/14 02/28/17 03/02/14 09:00 History amLODIPine [Norvasc] 10 mg PO DAILY 03/02/14 02/28/17 03/02/14 09:00 History diphenhydrAMINE [Benadryl CAP] 50 mg PO Q8HR PRN #30 capsule 12/16/16 02/28/17 Unknown Rx hydrOXYzine HCL [Atarax] 25 mg PO Q6H PRN #20 tablet 12/31/16 02/28/17 Unknown Rx Omeprazole Magnesium [PriLOSEC Otc] 20 mg PO QDAY #14 tablet.dr 01/10/17 Unknown Rx Ondansetron [Zofran TAB] 4 mg PO Q8HR PRN #15 tablet 01/10/17 02/28/17 Unknown Rx HYDROcodone/APAP 7.5-325 [[place] 1 each PO Q8HR PRN #14 tablet 03/03/17 Unknown Rx 7.5-325 mg TAB] Sevelamer Carbonate [Renvela] 800 mg PO TIDWM #270 tablet 03/04/17 Unknown Rx Ciprofloxacin HCl [Ciprofloxacin 500 mg PO BID #14 tablet 03/20/17 Unknown Rx TAB] HYDROcodone/APAP 5-325 [[place] 1 - 2 each PO Q6HR PRN #14 tablet 03/20/17 Unknown Rx 5/325] metroNIDAZOLE [Flagyl] 500 mg PO Q8HR #21 tablet 03/20/17 Unknown Rx ED Physical Exam - General Limitations: Physical Limitation General appearance: alert, in no apparent distress - Head Head exam: Present: atraumatic, normocephalic - Eye Eye exam: Present: normal appearance - ENT ENT exam: Present: mucous membranes moist - Neck Neck exam: Present: normal inspection - Respiratory Respiratory exam: Present: normal lung sounds bilaterally. Absent: respiratory distress, wheezes, rales - Cardiovascular Cardiovascular Exam: Present: regular rate, normal rhythm. Absent: systolic murmur, diastolic murmur, rubs, gallop - GI/Abdominal GI/Abdominal exam: Present: soft, normal bowel sounds. Absent: distended, tenderness, guarding, rebound, rigid - Rectal Rectal exam: Present: deferred - Extremities Exam Extremities exam: Present: normal inspection - Back Exam Back exam: Present: normal inspection - Neurological Exam Neurological exam: Present: alert, oriented X3 - Psychiatric Psychiatric exam: Present: normal affect, normal mood - Skin Skin exam: Present: warm, dry, intact, normal color. Absent: rash ED Course Vital Signs 05/10/17 05/10/17 05/10/17 19:02 19:07 19:16 Temperature 97.9 F Pulse Rate 79 80 Respiratory 17 30 H 17 Rate Blood Pressure 84/49 Blood Pressure 84/49 [Right] O2 Sat by Pulse 94 97 93 Oximetry 05/10/17 05/10/17 05/10/17 19:30 19:45 19:51 Temperature Pulse Rate 79 77 Respiratory 12 18 22 Rate Blood Pressure 106/55 Blood Pressure [Right] O2 Sat by Pulse 96 97 Oximetry 05/10/17 05/10/17 05/10/17 20:00 20:02 20:15 Temperature 98 F Pulse Rate 78 76 76 Respiratory 16 18 14 Rate Blood Pressure 105/58 113/64 Blood Pressure 106/55 [Right] O2 Sat by Pulse 96 98 98 Oximetry 05/10/17 20:30 Temperature Pulse Rate 73 Respiratory 14 Rate Blood Pressure 110/61 Blood Pressure [Right] O2 Sat by Pulse 96 Oximetry LAURA score - Laura Score Age > 65: (0) No Aspirin use within the Past 7 Days: (0) No 3 or more CAD Risk Factors: (1) Yes 2 or more Angina events in past 24 hrs: (1) Yes Known CAD with more than 50% Stenosis: (1) Yes Elevated Cardiac Markers: (0) No ST Deviation Greater than 0.5mm: (0) No LAURA Score: 3 ED Medical Decision Making - Lab Data Result diagrams: 05/10/17 19:16 05/10/17 19:16 Lab Results 05/10/17 05/10/17 05/10/17 Range/Units 19:16 19:16 19:16 WBC 6.2 (4.5-11.0) K/mm3 RBC 3.40 L (3.65-5.03) M/mm3 Hgb 10.8 L (11.8-15.2) gm/dl Hct 32.6 L (35.5-45.6) % MCV 96 H (84-94) fl MCH 32 (28-32) pg MCHC 33 (32-34) % RDW 15.7 H (13.2-15.2) % Plt Count 191 (140-440) K/mm3 Lymph % (Auto) 16.7 (13.4-35.0) % [place] % (Auto) 11.0 H (0.0-7.3) % Eos % (Auto) 3.5 (0.0-4.3) % Baso % (Auto) 1.2 (0.0-1.8) % Lymph # 1.0 L (1.2-5.4) K/mm3 [place] # 0.7 (0.0-0.8) K/mm3 Eos # 0.2 (0.0-0.4) K/mm3 Baso # 0.1 (0.0-0.1) K/mm3 Seg Neutrophils % 67.6 (40.0-70.0) % Seg Neutrophils # 4.2 (1.8-7.7) K/mm3 PT 13.2 (12.2-14.9) Sec. INR 0.95 (0.87-1.13) APTT 36.0 (24.2-36.6) Sec. Sodium 141 (137-145) mmol/L Potassium 4.2 (3.6-5.0) mmol/L Chloride 95.8 L (98-107) mmol/L Carbon Dioxide 27 (22-30) mmol/L Anion Gap 22 mmol/L BUN 42 H (9-20) mg/dL Creatinine 7.6 H (0.8-1.5) mg/dL Estimated GFR 9 ml/min BUN/Creatinine Ratio 6 % Glucose 118 H (75-100) mg/dL POC Glucose (70-105) Calcium 8.8 (8.4-10.2) mg/dL Total Bilirubin 0.20 (0.1-1.2) mg/dL AST 12 (5-40) units/L ALT 8 (7-56) units/L Alkaline Phosphatase 77 (35-129) units/L Troponin T 0.030 H (0.00-0.029) ng/mL Total Protein 7.2 (6.3-8.2) g/dL Albumin 3.9 (3.9-5) g/dL Albumin/Globulin Ratio 1.2 % Triglycerides 57 (2-149) mg/dL Cholesterol 152 (50-199) mg/dL LDL Cholesterol Direct 79 (50-130) mg/dL HDL Cholesterol 71 H (40-59) mg/dL Cholesterol/HDL Ratio 2.14 % 03/31/18 Range/Units 20:06 WBC (4.5-11.0) K/mm3 RBC (3.65-5.03) M/mm3 Hgb (11.8-15.2) gm/dl Hct (35.5-45.6) % MCV (84-94) fl MCH (28-32) pg MCHC (32-34) % RDW (13.2-15.2) % Plt Count (140-440) K/mm3 Lymph % (Auto) (13.4-35.0) % [place] % (Auto) (0.0-7.3) % Eos % (Auto) (0.0-4.3) % Baso % (Auto) (0.0-1.8) % Lymph # (1.2-5.4) K/mm3 [place] # (0.0-0.8) K/mm3 Eos # (0.0-0.4) K/mm3 Baso # (0.0-0.1) K/mm3 Seg Neutrophils % (40.0-70.0) % Seg Neutrophils # (1.8-7.7) K/mm3 PT (12.2-14.9) Sec. INR (0.87-1.13) APTT (24.2-36.6) Sec. Sodium (137-145) mmol/L Potassium (3.6-5.0) mmol/L Chloride (98-107) mmol/L Carbon Dioxide (22-30) mmol/L Anion Gap mmol/L BUN (9-20) mg/dL Creatinine (0.8-1.5) mg/dL Estimated GFR ml/min BUN/Creatinine Ratio % Glucose (75-100) mg/dL POC Glucose 127 H (70-105) Calcium (8.4-10.2) mg/dL Total Bilirubin (0.1-1.2) mg/dL AST (5-40) units/L ALT (7-56) units/L Alkaline Phosphatase (35-129) units/L Troponin T (0.00-0.029) ng/mL Total Protein (6.3-8.2) g/dL Albumin (3.9-5) g/dL Albumin/Globulin Ratio % Triglycerides (2-149) mg/dL Cholesterol (50-199) mg/dL LDL Cholesterol Direct (50-130) mg/dL HDL Cholesterol (40-59) mg/dL Cholesterol/HDL Ratio % - EKG Data -: EKG Interpreted by Ga - EKG Data Interpretation: no acute changes, other (EKG shows sinus rhythm rate of 79 and normal axis, prolonged QT. No ST segment elevations or depressions. Interpretation is 1928) - Radiology Data Radiology results: report reviewed Chest x-ray shows left basilar infiltrate that is new compared to previous chest x-rays - Medical Decision Making Patient is a 62-year-old male whose presenting with chest pain. Patient was initially hypotensive when he arrived. This corrected very quickly with 500 mL bolus of normal saline. Patient's pain has improved slightly but is still present. Patient was given aspirin and [place] for pain. Patient because of the small infiltrate is new on chest x-ray lab blood cultures done and were given Rocephin and azithromycin. Patient will be admitted to Dr. Durant hospitalist group at this time. Critical Care Time: Yes Critical care time in (mins) excluding proc time.: 30 Critical care attestation.: If time is entered above; I have spent that time in minutes in the direct care of this critically ill patient, excluding procedure time. ED Disposition Clinical Impression: Hypovolemia, Unstable angina, ESRD (end stage renal disease) Pneumonia Qualifiers: Pneumonia type: due to unspecified organism Laterality: left Lung location: lower lobe of lung Qualified Code(s): J18.1 - Lobar pneumonia, unspecified organism Disposition: 09 OP ADMIT IP TO THIS HOSP Is pt being admited?: Yes Does the pt Need Aspirin: No Condition: Serious Instructions: Angina (ED), Bacterial Pneumonia (ED) Referrals: TREY JOHNSON MD [Primary Care Provider] - 3-5 Days
--- NOTE | 2017-05-10 22:25 | History and Physical Report ---
History of Present Illness Date of examination: 05/10/17 History of present illness: Ludmila 2-year-old man with a history of hypertension, diabetes, gout, end-stage renal disease on dialysis, coronary artery disease comes emergency room with complaints of chest pain. Pain is in the epigastric area which he describes as tightness, usually occur at dialysis and started over the last 2 days. Pain is intermittent in nature, unclear how long it last for, intensity 4/10, no radiation, I cannot identify exacerbating or relieving factors. Admits to nausea vomiting, shortness of breath, no diaphoresis or palpitation. He stated that he did not complete his last dialysis PAST MEDICAL HISTORY:hypertension, diabetes, gout, end-stage renal disease on dialysis, coronary artery disease PAST SURGICAL HISTORY: AV fistula SOCIAL HISTORY: Denies alcohol, tobacco, drugs FAMILY HISTORY: Hypertension, diabetes Medications and Allergies Allergies Allergy/AdvReac Type Severity Reaction Status Date / Time No Known Allergies Allergy Verified 02/28/17 00:21 Home Medications Medication Instructions Recorded Confirmed Last Taken Type Aspirin [Aspirin BABY CHEW TAB] 81 mg PO DAILY 03/02/14 02/28/17 03/02/14 09:00 History amLODIPine [Norvasc] 10 mg PO DAILY 03/02/14 02/28/17 03/02/14 09:00 History diphenhydrAMINE [Benadryl CAP] 50 mg PO Q8HR PRN #30 capsule 12/16/16 02/28/17 Unknown Rx hydrOXYzine HCL [Atarax] 25 mg PO Q6H PRN #20 tablet 12/31/16 02/28/17 Unknown Rx Omeprazole Magnesium [PriLOSEC Otc] 20 mg PO QDAY #14 tablet. 01/10/17 Unknown Rx Ondansetron [Zofran TAB] 4 mg PO Q8HR PRN #15 tablet 01/10/17 02/28/17 Unknown Rx HYDROcodone/APAP 7.5-325 [[place] 1 each PO Q8HR PRN #14 tablet 03/03/17 Unknown Rx 7.5-325 mg TAB] Sevelamer Carbonate [Renvela] 800 mg PO TIDWM #270 tablet 03/04/17 Unknown Rx Ciprofloxacin HCl [Ciprofloxacin 500 mg PO BID #14 tablet 03/20/17 Unknown Rx TAB] HYDROcodone/APAP 5-325 [[place] 1 - 2 each PO Q6HR PRN #14 tablet 03/20/17 Unknown Rx 5/325] metroNIDAZOLE [Flagyl] 500 mg PO Q8HR #21 tablet 03/20/17 Unknown Rx Exam - Physical Exam Narrative exam: Gen. appearance: Patient lying in bed, no apparent distress HEENT: Normocephalic, atraumatic, pupils equally round and reactive to light, extraocular movement intact, and no sclericterus,. No JVD or thyromegaly or nodule,neck supple, no carotid bruit ,mucous membranes moist, no exudate or erythema Heart: S1, S2, regular rate and rhythm Lungs: Clear to auscultation bilaterally, breathing comfortable Abdomen: Positive bowel sounds, nontender, nondistended, no organomegaly Extremity: No edema, cyanosis, clubbing Skin: No rash, nodules, warm, dry Neuro: Oriented 3, cranial nerves II-12 intact, speech is fluent, motor and sensory intact - Constitutional Vitals: Temp Pulse Resp BP Pulse Ox 98 F 73 14 110/61 96 05/10/17 20:02 05/10/17 20:30 05/10/17 20:30 05/10/17 20:30 05/10/17 20:30 Results - Labs CBC & Chem 7: 05/10/17 19:16 05/10/17 19:16 Labs: Abnormal lab results 05/10/17 05/10/17 05/10/17 Range/Units 19:16 19:16 20:06 RBC 3.40 L (3.65-5.03) M/mm3 Hgb 10.8 L (11.8-15.2) gm/dl Hct 32.6 L (35.5-45.6) % MCV 96 H (84-94) fl RDW 15.7 H (13.2-15.2) % [place] % (Auto) 11.0 H (0.0-7.3) % Lymph # 1.0 L (1.2-5.4) K/mm3 Chloride 95.8 L (98-107) mmol/L BUN 42 H (9-20) mg/dL Creatinine 7.6 H (0.8-1.5) mg/dL Glucose 118 H (75-100) mg/dL POC Glucose 127 H (70-105) Troponin T 0.030 H (0.00-0.029) ng/mL HDL Cholesterol 71 H (40-59) mg/dL - Imaging and Cardiology EKG: image reviewed Chest x-ray: image reviewed Assessment and Plan Assessment Unstable angina Community acquired pneumonia Coronary artery disease End-stage renal disease on dialysis Hypertension Diabetes Plan Admit to medicine Check cardiac enzymes, obtain stress test, consult cardiology Start IV Levaquin, consult renal Check fingersticks and initiate insulin sliding scale Continue appropriate outpatient medication DVT prophylaxis
[2017-05-10] MEDS ORDERED: SODIUM CHLORIDE FLUSH SYRINGE 10 ML IV PRN (22:51)
[2017-05-10] MEDS ORDERED: TYLENOL PO PRN (22:51)
[2017-05-10] MEDS ORDERED: ZOFRAN IV PRN (22:51)
[2017-05-11 07:10] LABS: Basophils # (Auto) 0.1 K/mm3 (0.0-0.1); Basophils % (Auto) 1.1 % (0.0-1.8); Eosinophils # (Auto) 0.4 K/mm3 (0.0-0.4); Eosinophils % (Auto) 8.4 % (0.0-4.3); Hematocrit 34.2 % (35.5-45.6); Hemoglobin 11.3 gm/dl (11.8-15.2); Lymphocytes # (Auto) 1.5 K/mm3 (1.2-5.4); Lymphocytes % (Auto) 31.2 % (13.4-35.0); Mean Corpuscular HGB Conc 33 % (32-34); Mean Corpuscular Hemoglobin 32 pg (28-32); Mean Corpuscular Volume 96 fl (84-94); Monocytes # (Auto) 0.6 K/mm3 (0.0-0.8); Monocytes % (Auto) 12.7 % (0.0-7.3); Platelet Count 182 K/mm3 (140-440); Red Blood Count 3.56 M/mm3 (3.65-5.03); Red Cell Distribution Width 15.6 % (13.2-15.2)
[2017-05-11 07:22] LABS: Calcium 8.7 mg/dL (8.4-10.2)
[2017-05-11 07:39] LABS: Creatine Kinase MB 2.5 ng/mL (0.0-4.0)
[2017-05-11] MEDS: RENVELA PO SCH ×3 (07:55→18:08)
[2017-05-11] MEDS ORDERED: LEXISCAN IV ONE ×2 (08:14→08:36)
--- NOTE | 2017-05-11 09:13 | Consultation ---
History of Present Illness Consult date: 05/11/17 Consult reason: chest pain History of present illness: Mr. Albert is a 62-year-old man with a history of hypertension, diabetes, gout, end-stage renal disease on dialysis, coronary artery disease comes emergency room with complaints of chest pain and shortness of breath. Patient is a poor historian. Pain is in the epigastric area which he describes as tightness, usually occur at dialysis and started over the last 2 days. Pain is intermittent in nature, unclear how long it last for, no radiation. Patient states he has associated shortness of breath that gets worse anytime he tries to do any activity. Past History Past Medical History: CAD, diabetes, ESRD, renal failure, other (gout) Past Surgical History: Other (AV fistula) Social history: denies: smoking, alcohol abuse, prescription drug abuse, IV drug use Family history: no significant family history Medications and Allergies Allergies Allergy/AdvReac Type Severity Reaction Status Date / Time No Known Allergies Allergy Verified 02/28/17 00:21 Home Medications Medication Instructions Recorded Confirmed Last Taken Type Aspirin [Aspirin BABY CHEW TAB] 81 mg PO DAILY 03/02/14 02/28/17 03/02/14 09:00 History amLODIPine [Norvasc] 10 mg PO DAILY 03/02/14 02/28/17 03/02/14 09:00 History diphenhydrAMINE [Benadryl CAP] 50 mg PO Q8HR PRN #30 capsule 12/16/16 02/28/17 Unknown Rx hydrOXYzine HCL [Atarax] 25 mg PO Q6H PRN #20 tablet 12/31/16 02/28/17 Unknown Rx Omeprazole Magnesium [PriLOSEC Otc] 20 mg PO QDAY #14 tablet. 01/10/17 Unknown Rx Ondansetron [Zofran TAB] 4 mg PO Q8HR PRN #15 tablet 01/10/17 02/28/17 Unknown Rx HYDROcodone/APAP 7.5-325 [[place] 1 each PO Q8HR PRN #14 tablet 03/03/17 Unknown Rx 7.5-325 mg TAB] Sevelamer Carbonate [Renvela] 800 mg PO TIDWM #270 tablet 03/04/17 Unknown Rx Ciprofloxacin HCl [Ciprofloxacin 500 mg PO BID #14 tablet 03/20/17 Unknown Rx TAB] HYDROcodone/APAP 5-325 [[place] 1 - 2 each PO Q6HR PRN #14 tablet 03/20/17 Unknown Rx 5/325] metroNIDAZOLE [Flagyl] 500 mg PO Q8HR #21 tablet 03/20/17 Unknown Rx Active Meds: Active Medications Acetaminophen (Tylenol) 650 mg PO Q4H PRN PRN Reason: Pain MILD(1-3)/Fever >100.5/SAEED Amlodipine Besylate (Norvasc) 10 mg PO DAILY [facility] Aspirin (Baby Aspirin) 81 mg PO DAILY [facility] Levofloxacin/Dextrose (Levaquin 250mg/50ml) 250 mg in 50 mls @ 50 mls/hr IV DAILY GORDO Ondansetron HCl (Zofran) 4 mg IV Q8H PRN PRN Reason: Nausea And Vomiting Oxycodone/Acetaminophen (Percocet 5/325) 1 tab PO Q4H PRN PRN Reason: Pain, Moderate (4-6) Pantoprazole Sodium (Protonix) 20 mg PO QDAY [facility] Sevelamer Carbonate (Renvela) 800 mg PO TIDWM GORDO Sodium Chloride (Sodium Chloride Flush Syringe 10 Ml) 10 ml IV BID GORDO Sodium Chloride (Sodium Chloride Flush Syringe 10 Ml) 10 ml IV PRN PRN PRN Reason: LINE FLUSH Review of Systems All systems: negative Physical Examination Vital Signs Temp Pulse Resp BP Pulse Ox 97.5 F L 79 17 84/49 94 05/10/17 19:02 05/10/17 19:02 05/10/17 19:02 05/10/17 19:02 05/10/17 19:02 General appearance: other (patient is not in distress, but is tachypnic) HEENT: Positive: PERRL, EOMI Neck: Positive: neck supple, trachea midline Cardiac: Positive: Reg Rate and Rhythm, S1/S2 Lungs: Positive: Rhonchi Neuro: Positive: Grossly Intact Abdomen: Positive: Soft, Active Bowel Sounds Extremities: Present: Other (left AV fistula). Absent: edema Results 05/11/17 06:32 05/11/17 06:37 Cardiac Enzymes 05/10/17 05/10/17 05/11/17 Range/Units 19:16 23:07 06:37 AST 12 (5-40) units/L CK-MB (CK-2) 2.0 2.5 (0.0-4.0) ng/mL Coagulation 05/10/17 Range/Units 19:16 PT 13.2 (12.2-14.9) Sec. INR 0.95 (0.87-1.13) APTT 36.0 (24.2-36.6) Sec. Lipids 05/10/17 Range/Units 19:16 Triglycerides 57 (2-149) mg/dL Cholesterol 152 (50-199) mg/dL HDL Cholesterol 71 H (40-59) mg/dL Cholesterol/HDL Ratio 2.14 % CBC 05/10/17 05/11/17 Range/Units 19:16 06:32 WBC 6.2 4.9 (4.5-11.0) K/mm3 RBC 3.40 L 3.56 L (3.65-5.03) M/mm3 Hgb 10.8 L 11.3 L (11.8-15.2) gm/dl Hct 32.6 L 34.2 L (35.5-45.6) % Plt Count 191 182 (140-440) K/mm3 Lymph # 1.0 L 1.5 (1.2-5.4) K/mm3 [place] # 0.7 0.6 (0.0-0.8) K/mm3 Eos # 0.2 0.4 (0.0-0.4) K/mm3 Baso # 0.1 0.1 (0.0-0.1) K/mm3 Comprehensive Metabolic Panel 05/10/17 05/11/17 Range/Units 19:16 06:37 Sodium 141 140 (137-145) mmol/L Potassium 4.2 4.5 (3.6-5.0) mmol/L Chloride 95.8 L 97.5 L (98-107) mmol/L Carbon Dioxide 27 27 (22-30) mmol/L BUN 42 H 44 H (9-20) mg/dL Creatinine 7.6 H 8.2 H (0.8-1.5) mg/dL Glucose 118 H 89 (75-100) mg/dL Calcium 8.8 8.7 (8.4-10.2) mg/dL AST 12 (5-40) units/L ALT 8 (7-56) units/L Alkaline Phosphatase 77 (35-129) units/L Total Protein 7.2 (6.3-8.2) g/dL Albumin 3.9 (3.9-5) g/dL Assessment and Plan Chest pain - cardiac enzymes plateaued and not in the expected pattern for ACS. They are elevated consistent with renal failure. Stress test today Community acquired pneumonia - management per primary Coronary artery disease - Start BB and atorvastatin. Continue aspirin. Check echo. End-stage renal disease on dialysis - management per nephrology Hypertension - well controlled. Continue current therapy Diabetes - management per primary
[2017-05-11] MEDS ORDERED: LEVAQUIN 250MG/50ML 250 MG/50 ML BAG IV SCH (10:00)
[2017-05-11] MEDS ORDERED: NON-FORMULARY (Omeprazole Magnesium [Prilosec Otc] 20 MG) PO SCH (10:00)
[2017-05-11] MEDS ORDERED: ARIXTRA SUB-Q SCH (10:00)
[2017-05-11] MEDS ORDERED: LEVAQUIN 500MG/100ML 500 MG/100 ML BAG IV SCH (11:00)
--- NOTE | 2017-05-11 13:06 | Progress Note ---
Assessment and Plan Assessment and plan: Chest pain. Stress test done and preliminary resullt states mild to moderate revesible ischemia. Cardiology following Pneumonia left base. Cont Levaquin Diabetes mellitus type 2. Check fingerstick Qac an hs Coronary artery disease. On Aspirin,statin. cardiology on case ESRD on dialysis Hyperlipiemia. On statin DVT prophylaxis. with Heparin. History Interval history: Chest pain Hospitalist Physical - Physical exam Narrative exam: Gen appearance: Not in acute distress, lying in bed, HEENT:Normocephalic, atraumatic Neck:supple, no JVD Lungs: Clear to auscultation bilaterally, no crackles , no wheeze Heart: S1 and S2 regular, no murmurs, rubs or gallop Abdomen: soft, non tender, non distended, normal bowel sounds Ext: left arm AV fistula, no clubbing, no cyanosis. Neuro: Awake, alert, oriented x 3. No focal signs Psych:normal mood - Constitutional Vitals: Temp Pulse Resp BP Pulse Ox 97.4 F L 78 18 99/65 99 05/11/17 04:00 05/11/17 08:30 05/11/17 04:00 05/11/17 08:30 05/11/17 04:00 General appearance: Present: other (patient is not in distress, but is tachypnic ) Results - Labs CBC & Chem 7: 05/13/17 05:53 05/13/17 05:53 Labs: Laboratory Last Values WBC 4.9 K/mm3 (4.5-11.0) 05/11/17 06:32 RBC 3.56 M/mm3 (3.65-5.03) L 05/11/17 06:32 Hgb 11.3 gm/dl (11.8-15.2) L 05/11/17 06:32 Hct 34.2 % (35.5-45.6) L 05/11/17 06:32 MCV 96 fl (84-94) H 05/11/17 06:32 MCH 32 pg (28-32) 05/11/17 06:32 MCHC 33 % (32-34) 05/11/17 06:32 RDW 15.6 % (13.2-15.2) H 05/11/17 06:32 Plt Count 182 K/mm3 (140-440) 05/11/17 06:32 Lymph % (Auto) 31.2 % (13.4-35.0) 05/11/17 06:32 [place] % (Auto) 12.7 % (0.0-7.3) H 05/11/17 06:32 Eos % (Auto) 8.4 % (0.0-4.3) H 05/11/17 06:32 Baso % (Auto) 1.1 % (0.0-1.8) 05/11/17 06:32 Lymph # 1.5 K/mm3 (1.2-5.4) 05/11/17 06:32 [place] # 0.6 K/mm3 (0.0-0.8) 05/11/17 06:32 Eos # 0.4 K/mm3 (0.0-0.4) 05/11/17 06:32 Baso # 0.1 K/mm3 (0.0-0.1) 05/11/17 06:32 Seg Neutrophils % 46.6 % (40.0-70.0) 05/11/17 06:32 Seg Neutrophils # 2.3 K/mm3 (1.8-7.7) 05/11/17 06:32 PT 13.2 Sec. (12.2-14.9) 05/10/17 19:16 INR 0.95 (0.87-1.13) 05/10/17 19:16 APTT 36.0 Sec. (24.2-36.6) 05/10/17 19:16 Sodium 140 mmol/L (137-145) 05/11/17 06:37 Potassium 4.5 mmol/L (3.6-5.0) 05/11/17 06:37 Chloride 97.5 mmol/L (98-107) L 05/11/17 06:37 Carbon Dioxide 27 mmol/L (22-30) 05/11/17 06:37 Anion Gap 20 mmol/L 05/11/17 06:37 BUN 44 mg/dL (9-20) H 05/11/17 06:37 Creatinine 8.2 mg/dL (0.8-1.5) H 05/11/17 06:37 Estimated GFR 8 ml/min 05/11/17 06:37 BUN/Creatinine Ratio 5 % 05/11/17 06:37 Glucose 89 mg/dL (75-100) 05/11/17 06:37 POC Glucose 127 (70-105) H 05/10/17 20:06 Calcium 8.7 mg/dL (8.4-10.2) 05/11/17 06:37 Total Bilirubin 0.20 mg/dL (0.1-1.2) 05/10/17 19:16 AST 12 units/L (5-40) 05/10/17 19:16 ALT 8 units/L (7-56) 05/10/17 19:16 Alkaline Phosphatase 77 units/L (35-129) 05/10/17 19:16 Total Creatine Kinase 87 units/L (55-170) 05/11/17 06:37 CK-MB (CK-2) 2.5 ng/mL (0.0-4.0) 05/11/17 06:37 CK-MB (CK-2) Rel Index 2.8 (0-4) 05/11/17 06:37 Troponin T 0.033 ng/mL (0.00-0.029) H D 05/11/17 06:37 Total Protein 7.2 g/dL (6.3-8.2) 05/10/17 19:16 Albumin 3.9 g/dL (3.9-5) 05/10/17 19:16 Albumin/Globulin Ratio 1.2 % 05/10/17 19:16 Triglycerides 57 mg/dL (2-149) 05/10/17 19:16 Cholesterol 152 mg/dL (50-199) 05/10/17 19:16 LDL Cholesterol Direct 79 mg/dL (50-130) 05/10/17 19:16 HDL Cholesterol 71 mg/dL (40-59) H 05/10/17 19:16 Cholesterol/HDL Ratio 2.14 % 05/10/17 19:16
--- NOTE | 2017-05-11 13:18 | Progress Note ---
Subjective Date of service: 05/11/17 Interval history: Nuclear stress test preliminary result miild to moderate reversible defect in the inferior aspect of the heart EF 71% intermediate risk Objective Vital Signs Temp Pulse Pulse Resp BP BP Pulse Ox 05/11/17 08:30 78 99/65 05/11/17 08:29 77 101/63 05/11/17 08:28 79 98/62 05/11/17 08:27 79 100/64 05/11/17 08:26 81 98/62 05/11/17 08:25 78 118/69 05/11/17 08:06 69 106/68 05/11/17 04:00 97.4 F L 73 18 123/75 99 05/11/17 00:55 98 F 77 18 132/77 99 05/11/17 00:46 77 132/75 05/11/17 00:45 98 F 77 132/77 05/11/17 00:16 76 20 99 05/11/17 00:00 97.9 F 71 18 114/68 98 05/10/17 23:15 73 13 98/64 97 05/10/17 23:00 75 16 106/63 98 05/10/17 22:45 76 25 H 100/63 05/10/17 22:30 74 16 108/61 05/10/17 22:15 78 16 106/68 100 05/10/17 22:00 78 22 110/61 94 05/10/17 21:45 72 15 102/60 97 05/10/17 21:30 75 16 98/59 96 05/10/17 21:15 75 12 106/60 98 05/10/17 21:00 75 14 113/64 97 05/10/17 20:45 76 14 100/60 96 05/10/17 20:30 73 14 110/61 96 05/10/17 20:15 76 14 113/64 98 05/10/17 20:02 98 F 76 18 106/55 98 05/10/17 20:00 78 16 105/58 96 05/10/17 19:51 22 05/10/17 19:45 77 18 106/55 97 05/10/17 19:30 79 12 96 05/10/17 19:16 80 17 93 05/10/17 19:07 30 H 97 05/10/17 19:02 97.9 F 79 17 84/49 84/49 94 - Physical Examination HEENT: Positive: PERRL, EOMI Neck: Positive: neck supple, trachea midline Neuro: Positive: Grossly Intact Abdomen: Positive: Soft, Active Bowel Sounds Extremities: Present: Other (left AV fistula). Absent: edema - Labs and Meds Cardiac Enzymes 05/10/17 05/10/17 05/11/17 Range/Units 19:16 23:07 06:37 AST 12 (5-40) units/L CK-MB (CK-2) 2.0 2.5 (0.0-4.0) ng/mL Coagulation 05/10/17 Range/Units 19:16 PT 13.2 (12.2-14.9) Sec. INR 0.95 (0.87-1.13) APTT 36.0 (24.2-36.6) Sec. Lipids 05/10/17 Range/Units 19:16 Triglycerides 57 (2-149) mg/dL Cholesterol 152 (50-199) mg/dL HDL Cholesterol 71 H (40-59) mg/dL Cholesterol/HDL Ratio 2.14 % CBC 05/10/17 05/11/17 Range/Units 19:16 06:32 WBC 6.2 4.9 (4.5-11.0) K/mm3 RBC 3.40 L 3.56 L (3.65-5.03) M/mm3 Hgb 10.8 L 11.3 L (11.8-15.2) gm/dl Hct 32.6 L 34.2 L (35.5-45.6) % Plt Count 191 182 (140-440) K/mm3 Lymph # 1.0 L 1.5 (1.2-5.4) K/mm3 [place] # 0.7 0.6 (0.0-0.8) K/mm3 Eos # 0.2 0.4 (0.0-0.4) K/mm3 Baso # 0.1 0.1 (0.0-0.1) K/mm3 Comprehensive Metabolic Panel 05/10/17 05/11/17 Range/Units 19:16 06:37 Sodium 141 140 (137-145) mmol/L Potassium 4.2 4.5 (3.6-5.0) mmol/L Chloride 95.8 L 97.5 L (98-107) mmol/L Carbon Dioxide 27 27 (22-30) mmol/L BUN 42 H 44 H (9-20) mg/dL Creatinine 7.6 H 8.2 H (0.8-1.5) mg/dL Glucose 118 H 89 (75-100) mg/dL Calcium 8.8 8.7 (8.4-10.2) mg/dL AST 12 (5-40) units/L ALT 8 (7-56) units/L Alkaline Phosphatase 77 (35-129) units/L Total Protein 7.2 (6.3-8.2) g/dL Albumin 3.9 (3.9-5) g/dL - Imaging and Cardiology EKG: image reviewed
[2017-05-11] MEDS: SODIUM CHLORIDE FLUSH SYRINGE 10 ML IV SCH (14:51)
[2017-05-11] MEDS: NORVASC PO SCH (14:54)
[2017-05-11] MEDS: PROTONIX PO SCH (14:54)
[2017-05-11] MEDS: COREG PO SCH ×2 (14:55→21:26)
[2017-05-11] MEDS: PERCOCET 5/325 PO PRN (14:55)
[2017-05-11] MEDS: BABY ASPIRIN PO SCH (14:57)
[2017-05-12] MEDS: SODIUM CHLORIDE FLUSH SYRINGE 10 ML IV SCH ×3 (00:56→22:30)
[2017-05-12] MEDS: PROTONIX PO SCH (11:47)
[2017-05-12] MEDS: COREG PO SCH ×2 (11:48→22:29)
[2017-05-12] MEDS: BABY ASPIRIN PO SCH (11:48)
[2017-05-12] MEDS: NORVASC PO SCH (11:49)
[2017-05-12] MEDS: RENVELA PO SCH ×3 (13:49→18:24)
--- NOTE | 2017-05-12 17:10 | Progress Note ---
Assessment and Plan Assessment and plan: Chest pain. Stress test done and preliminary result states mild to moderate revesible ischemia. Cardiology to determine plan of action. Pneumonia left base. Cont Levaquin Diabetes mellitus type 2. Check fingerstick Qac an hs Coronary artery disease. On Aspirin,statin. cardiology on case ESRD on dialysis. Nephrology consulted Hyperlipiemia. On statin DVT prophylaxis. with Heparin. History Interval history: Less chest pain, no fever, no shortness of breath Hospitalist Physical - Physical exam Narrative exam: Gen appearance: Not in acute distress, lying in bed, HEENT:Normocephalic, atraumatic Neck:supple, no JVD Lungs: Clear to auscultation bilaterally, no crackles , no wheeze Heart: S1 and S2 regular, no murmurs, rubs or gallop Abdomen: soft, non tender, non distended, normal bowel sounds Ext: left arm AV fistula, no clubbing, no cyanosis. Neuro: Awake, alert, oriented x 3. No focal neuro signs - Constitutional Vitals: Temp Pulse Resp BP Pulse Ox 98.0 F 82 18 140/84 97 05/12/17 15:46 05/12/17 15:46 05/12/17 15:46 05/12/17 15:46 05/12/17 15:46 General appearance: Present: other (patient is not in distress, but is tachypnic ) Results - Labs CBC & Chem 7: 05/13/17 05:53 05/13/17 05:53 Labs: Laboratory Last Values WBC 4.9 K/mm3 (4.5-11.0) 05/11/17 06:32 RBC 3.56 M/mm3 (3.65-5.03) L 05/11/17 06:32 Hgb 11.3 gm/dl (11.8-15.2) L 05/11/17 06:32 Hct 34.2 % (35.5-45.6) L 05/11/17 06:32 MCV 96 fl (84-94) H 05/11/17 06:32 MCH 32 pg (28-32) 05/11/17 06:32 MCHC 33 % (32-34) 05/11/17 06:32 RDW 15.6 % (13.2-15.2) H 05/11/17 06:32 Plt Count 182 K/mm3 (140-440) 05/11/17 06:32 Lymph % (Auto) 31.2 % (13.4-35.0) 05/11/17 06:32 [place] % (Auto) 12.7 % (0.0-7.3) H 05/11/17 06:32 Eos % (Auto) 8.4 % (0.0-4.3) H 05/11/17 06:32 Baso % (Auto) 1.1 % (0.0-1.8) 05/11/17 06:32 Lymph # 1.5 K/mm3 (1.2-5.4) 05/11/17 06:32 [place] # 0.6 K/mm3 (0.0-0.8) 05/11/17 06:32 Eos # 0.4 K/mm3 (0.0-0.4) 05/11/17 06:32 Baso # 0.1 K/mm3 (0.0-0.1) 05/11/17 06:32 Seg Neutrophils % 46.6 % (40.0-70.0) 05/11/17 06:32 Seg Neutrophils # 2.3 K/mm3 (1.8-7.7) 05/11/17 06:32 PT 13.2 Sec. (12.2-14.9) 05/10/17 19:16 INR 0.95 (0.87-1.13) 05/10/17 19:16 APTT 36.0 Sec. (24.2-36.6) 05/10/17 19:16 Sodium 140 mmol/L (137-145) 05/11/17 06:37 Potassium 4.5 mmol/L (3.6-5.0) 05/11/17 06:37 Chloride 97.5 mmol/L (98-107) L 05/11/17 06:37 Carbon Dioxide 27 mmol/L (22-30) 05/11/17 06:37 Anion Gap 20 mmol/L 05/11/17 06:37 BUN 44 mg/dL (9-20) H 05/11/17 06:37 Creatinine 8.2 mg/dL (0.8-1.5) H 05/11/17 06:37 Estimated GFR 8 ml/min 05/11/17 06:37 BUN/Creatinine Ratio 5 % 05/11/17 06:37 Glucose 89 mg/dL (75-100) 05/11/17 06:37 POC Glucose 127 (70-105) H 05/10/17 20:06 Calcium 8.7 mg/dL (8.4-10.2) 05/11/17 06:37 Total Bilirubin 0.20 mg/dL (0.1-1.2) 05/10/17 19:16 AST 12 units/L (5-40) 05/10/17 19:16 ALT 8 units/L (7-56) 05/10/17 19:16 Alkaline Phosphatase 77 units/L (35-129) 05/10/17 19:16 Total Creatine Kinase 87 units/L (55-170) 05/11/17 06:37 CK-MB (CK-2) 2.5 ng/mL (0.0-4.0) 05/11/17 06:37 CK-MB (CK-2) Rel Index 2.8 (0-4) 05/11/17 06:37 Troponin T 0.033 ng/mL (0.00-0.029) H D 05/11/17 06:37 Total Protein 7.2 g/dL (6.3-8.2) 05/10/17 19:16 Albumin 3.9 g/dL (3.9-5) 05/10/17 19:16 Albumin/Globulin Ratio 1.2 % 05/10/17 19:16 Triglycerides 57 mg/dL (2-149) 05/10/17 19:16 Cholesterol 152 mg/dL (50-199) 05/10/17 19:16 LDL Cholesterol Direct 79 mg/dL (50-130) 05/10/17 19:16 HDL Cholesterol 71 mg/dL (40-59) H 05/10/17 19:16 Cholesterol/HDL Ratio 2.14 % 05/10/17 19:16
--- NOTE | 2017-05-12 19:00 | Progress Note ---
Assessment and Plan - Patient Problems (1) Chest pain Current Visit: Yes Status: Acute Plan to address problem: Atypical chest pain, with negative thallium stress test. Negative cardiac chest pain workup. Subjective Date of service: 05/12/17 Interval history: Patient is a 62-year-old man with chronic kidney disease on hemodialysis, admitted with atypical chest pain. Cardiac evaluation including a thallium stress test was negative. 3 months ago, he underwent echocardiographic assessment here that revealed well-preserved left ventricular systolic function , ejection fraction 55-60%, with mild to moderate aortic stenosis. Currently he looks and feels well, no new cardiac complaints. Objective Vital Signs Temp Pulse Pulse Resp BP BP Pulse Ox 05/12/17 17:52 98.0 F 82 20 140/84 97 05/12/17 15:46 98.0 F 82 18 140/84 97 05/12/17 11:59 98 05/12/17 09:10 97.6 F 75 18 117/70 98 05/12/17 05:10 97.6 F 84 18 128/64 94 05/12/17 01:01 98.2 F 79 20 137/75 98 05/11/17 22:45 84 20 05/11/17 21:26 84 122/70 05/11/17 20:22 72 05/11/17 20:18 98.7 F 84 18 122/70 98 - Physical Examination General: No Apparent Distress HEENT: Positive: PERRL, EOMI Neck: Positive: neck supple, trachea midline Cardiac: Positive: Reg Rate and Rhythm, S1/S2, Systolic Murmur Lungs: Positive: Decreased Breath Sounds Neuro: Positive: Grossly Intact Abdomen: Positive: Soft, Active Bowel Sounds Skin: Positive: Clear Extremities: Present: Other (left AV fistula). Absent: edema - Imaging and Cardiology EKG: image reviewed
[2017-05-12] MEDS ORDERED: NACL 0.9% 100 ML IV PRN (21:20)
--- NOTE | 2017-05-12 21:23 | Consultation ---
History of Present Illness - Reason for Consult Consult date: 05/12/17 end stage renal disease Requesting physician: TREY JOHNSON - History of Present Illness This is a 62 yo AAM with history of hypertension, CAD, s/p ID, COPD, diabetes, seizures, stroke, end-stage renal disease on hemodialysis on MWF schedule at [facility], who presented to [facility] ER with complaints of midsternal chest pain, pain is described as tightness, states that pain worsens with dialysis. Pain is intermittent in nature, associated with shortness of breath, nausea, vomiting, unclear how long it lasts for, intensity 4/10, no radiation, no exacerbating or relieving factors identified. CXR showed evidence of new Rt basilar infiltrate c /w pneumonia and pt is admitted for IV ABX treatment. Pt denies fever, chills, dysuria, diarrhea, abd pain. Renal consult is requested for management of ESRD/ HD. Pt's last HD was on last Friday Past History Past Medical History: CAD, diabetes, ESRD, renal failure, other (gout) Past Surgical History: Other (AV fistula) Social history: denies: smoking, alcohol abuse, prescription drug abuse, IV drug use Family history: no significant family history Medications and Allergies Allergies Allergy/AdvReac Type Severity Reaction Status Date / Time No Known Allergies Allergy Verified 02/28/17 00:21 Home Medications Medication Instructions Recorded Confirmed Last Taken Type Aspirin [Aspirin BABY CHEW TAB] 81 mg PO DAILY 03/02/14 05/12/17 1 Day Ago History ~05/11/17 amLODIPine [Norvasc] 10 mg PO DAILY 03/02/14 05/12/17 1 Day Ago History ~05/11/17 hydrOXYzine HCL [Atarax] 25 mg PO Q6H PRN #20 tablet 12/31/16 05/12/17 1 Day Ago Rx ~05/11/17 Omeprazole Magnesium [PriLOSEC Otc] 20 mg PO QDAY #14 tablet. 01/10/17 1 Day Ago Rx ~05/11/17 Sevelamer Carbonate [Renvela] 800 mg PO TIDWM #270 tablet 03/04/17 05/12/17 1 Day Ago Rx ~05/11/17 Active Meds: Active Medications Acetaminophen (Tylenol) 650 mg PO Q4H PRN PRN Reason: Pain MILD(1-3)/Fever >100.5/SAEED Amlodipine Besylate (Norvasc) 10 mg PO DAILY [facility] Last Admin: 05/12/17 11:49 Dose: 10 mg Aspirin (Baby Aspirin) 81 mg PO DAILY [facility] Last Admin: 05/12/17 11:48 Dose: 81 mg Atorvastatin Calcium (Lipitor) 40 mg PO QHS [facility] Last Admin: 05/11/17 21:26 Dose: 40 mg Carvedilol (Coreg) 3.125 mg PO BID [facility] Last Admin: 05/12/17 11:48 Dose: 3.125 mg Sodium Chloride (Nacl 0.9%) 100 mls @ 999 mls/hr IV JEANINE PRN PRN Reason: Hypotension Levofloxacin (Levaquin) 500 mg PO Q48HR [facility] Ondansetron HCl (Zofran) 4 mg IV Q8H PRN PRN Reason: Nausea And Vomiting Oxycodone/Acetaminophen (Percocet 5/325) 1 tab PO Q4H PRN PRN Reason: Pain, Moderate (4-6) Last Admin: 05/11/17 14:55 Dose: 1 tab Pantoprazole Sodium (Protonix) 20 mg PO QDAY [facility] Last Admin: 05/12/17 11:47 Dose: 20 mg Sevelamer Carbonate (Renvela) 800 mg PO TIDWM [facility] Last Admin: 05/12/17 18:24 Dose: 800 mg Sodium Chloride (Sodium Chloride Flush Syringe 10 Ml) 10 ml IV BID [facility] Last Admin: 05/12/17 14:50 Dose: 10 ml Sodium Chloride (Sodium Chloride Flush Syringe 10 Ml) 10 ml IV PRN PRN PRN Reason: LINE FLUSH Review of Systems All systems: negative Constitutional: weakness Cardiovascular: chest pain Gastrointestinal: nausea, vomiting Exam - Vital Signs Vital signs: Vital Signs Temp Pulse Resp BP Pulse Ox 97.5 F L 79 17 84/49 94 05/10/17 19:02 05/10/17 19:02 05/10/17 19:02 05/10/17 19:02 05/10/17 19:02 - General Appearance General appearance: well-developed, well-nourished, appears stated age EENT: ATNC, PERRL, mucous membranes moist Neck: Present: neck supple Respiratory: Clear to Ascultation Heart: regular, S1S2 Gastrointestinal: Present: normoactive bowel sounds Integumentary: no rash, other (no edema ) Neurologic: no focal deficit, alert and oriented x3, strength 5/5, CN 3-12 intact Psychiatric: mood/affect appropriate, cooperative Results - Lab Results 05/11/17 06:32 05/11/17 06:37 Most recent lab results Calcium 8.7 mg/dL (8.4-10.2) 05/11/17 06:37 Assessment and Plan - Patient Problems (1) Pneumonia Current Visit: Yes Status: Acute Qualifiers: Pneumonia type: due to unspecified organism Laterality: left Lung location: lower lobe of lung Qualified Code(s): J18.1 - Lobar pneumonia, unspecified organism Plan to address problem: IV ABXs as per primary attending, dose renally adjusted. (2) ESRD (end stage renal disease) Current Visit: Yes Status: Chronic Plan to address problem: will arrange HD in AM, then cont MWF thereafter (3) Anemia in chronic kidney disease Current Visit: No Status: Acute Plan to address problem: Hb at target, no need for EPO (4) HTN (hypertension) Current Visit: No Status: Chronic Plan to address problem: BP stable. resume home BP meds
[2017-05-13 06:20] LABS: Hematocrit 36.2 % (35.5-45.6); Hemoglobin 11.9 gm/dl (11.8-15.2); Mean Corpuscular HGB Conc 33 % (32-34); Mean Corpuscular Hemoglobin 32 pg (28-32); Mean Corpuscular Volume 96 fl (84-94); Platelet Count 170 K/mm3 (140-440); Red Blood Count 3.76 M/mm3 (3.65-5.03); Red Cell Distribution Width 15.7 % (13.2-15.2)
[2017-05-13 06:55] LABS: Calcium 8.7 mg/dL (8.4-10.2)
[2017-05-13] MEDS: RENVELA PO SCH ×3 (09:32→16:16)
[2017-05-13] MEDS: BABY ASPIRIN PO SCH (09:33)
[2017-05-13] MEDS: SODIUM CHLORIDE FLUSH SYRINGE 10 ML IV SCH (09:33)
[2017-05-13] MEDS: PROTONIX PO SCH (09:33)
[2017-05-13] MEDS ORDERED: LEVAQUIN PO SCH (10:00)
[2017-05-13] MEDS ORDERED: HEPARIN SUB-Q SCH (10:00)
[2017-05-13] MEDS: NORVASC PO SCH (11:44)
[2017-05-13] MEDS: COREG PO SCH (11:44)
--- NOTE | 2017-05-13 13:33 | Progress Note ---
Assessment and Plan - Patient Problems (1) Chest pain Current Visit: Yes Status: Acute Plan to address problem: Atypical chest pain, with negative thallium stress test. Negative cardiac chest pain workup. Subjective Date of service: 05/13/17 Interval history: Patient is a 62-year-old man with chronic kidney disease on hemodialysis, admitted with atypical chest pain. Cardiac evaluation including a thallium stress test was negative. 3 months ago, he underwent echocardiographic assessment here that revealed well-preserved left ventricular systolic function , ejection fraction 55-60%, with mild to moderate aortic stenosis. Currently he looks and feels well, no new cardiac complaints. Objective Vital Signs Temp Pulse Pulse Resp BP BP Pulse Ox 05/13/17 11:20 97.7 F 73 18 138/75 05/13/17 10:00 74 99 05/13/17 09:01 97.5 F L 76 18 139/82 98 05/13/17 07:03 98.3 F 77 20 126/74 96 05/13/17 01:03 97.1 F L 82 20 138/84 97 05/12/17 22:29 76 117/70 05/12/17 22:05 76 20 98 05/12/17 21:50 98 05/12/17 21:22 97.6 F 76 20 117/70 99 05/12/17 20:43 84 05/12/17 17:52 98.0 F 82 20 140/84 97 05/12/17 15:46 98.0 F 82 18 140/84 97 - Physical Examination General: No Apparent Distress HEENT: Positive: PERRL, EOMI Neck: Positive: neck supple Cardiac: Positive: Reg Rate and Rhythm Lungs: Positive: Decreased Breath Sounds Neuro: Positive: Grossly Intact Abdomen: Positive: Soft, Active Bowel Sounds Skin: Positive: Clear Extremities: Present: Other (left AV fistula). Absent: edema - Labs and Meds CBC 05/13/17 Range/Units 05:53 WBC 5.7 (4.5-11.0) K/mm3 RBC 3.76 (3.65-5.03) M/mm3 Hgb 11.9 (11.8-15.2) gm/dl Hct 36.2 (35.5-45.6) % Plt Count 170 (140-440) K/mm3 Comprehensive Metabolic Panel 05/13/17 Range/Units 05:53 Sodium 139 (137-145) mmol/L Potassium 5.3 H (3.6-5.0) mmol/L Chloride 97.4 L (98-107) mmol/L Carbon Dioxide 23 (22-30) mmol/L BUN 63 H (9-20) mg/dL Creatinine 11.3 H (0.8-1.5) mg/dL Glucose 91 (75-100) mg/dL Calcium 8.7 (8.4-10.2) mg/dL - Imaging and Cardiology EKG: image reviewed
[2017-05-13] MEDS ORDERED: NACL 0.9 (PRIMING MACHINE ONLY DIALYSIS) MC ONE (14:38)
--- NOTE | 2017-05-13 15:12 | Discharge Summary ---
Providers - Providers Date of Admission: 05/10/17 22:22 Date of discharge: 05/13/17 Attending physician: ANA COTTON 05/10/17 22:51 Consult to Physician [CONS] Routine Comment: Consulting Provider: THOMAS GREENFIELD Physician Instructions: Reason For Exam: ua 05/12/17 17:00 Consult to Physician [CONS] Routine Comment: Consulting Provider: STORM SENIOR Physician Instructions: Reason For Exam: ESRD Primary care physician: TREY JOHNSON Hospitalization Condition: Serious Pertinent studies: Chest x-ray: Left lower lobe infiltrates Hospital course: Mr. Albert is a 62-year-old man with a history of hypertension, diabetes, gout, end-stage renal disease on dialysis, coronary artery disease comes emergency room with complaints of chest pain and shortness of breath. His chest x-ray in the ER showed left lower lobe infiltrates. He was placed on Levaquin and consulted cardiology for chest pain evaluation. He was evaluated by stress stress which didn't reveal any significant reversible ischemia cardiology recommended no further intervention and to continue medical management. Nephrology was consulted for dialysis. His electrolytes were monitored. Patient remained asymptomatic and was clinically stable for discharge. He was discharged with outpatient follow-up. Discharge diagnosis: /Chest pain. Stress test done and resulted no revesible ischemia. Cardiology recommended no further intervention Chest pain likely from the pneumonia /Pneumonia, continue acquired. Cont Levaquin /Diabetes mellitus type 2. Medical history with fingerstick Qac and hs, along with sliding scale /Coronary artery disease. On Aspirin, statin. /ESRD on dialysis. Nephrology consulted for HD /Hyperlipiemia. On statin /Hyperkalemia, likely from ESRD, improved following dialysis /DVT prophylaxis. Placed on Heparin. Physical exam: GENERAL: well-developed and well-nourished male lying on bed appeared to be in no discomfort. HEENT: Normocephalic. Atraumatic. No conjunctival congestion or icterus. Patient has moist mucous membranes. NECK: Supple. Trachea midline. CHEST/LUNGS: Clear to auscultated bilaterally, breathing nonlabored. No wheezes crackles or rhonchi. HEART/CARDIOVASCULAR: Regular in rate and rhythm. S1 and S2 positive. ABDOMEN: Abdomen is soft, nontender. Patient has normal bowel sounds. SKIN: There is no rash. Warm and dry. NEURO: No focal motor deficit. Follows command. MUSCULOSKELETAL: No joint effusion or tenderness. EXTRIMITY: No edema, no cyanosis or clubbing. PSYCH: Cooperative. Disposition: DC-01 TO HOME OR SELFCARE Time spent for discharge: 32 minutes Core Measure Documentation - Palliative Care Palliative Care/ Comfort Measures: Not Applicable - Core Measures Any of the following diagnoses?: history only Exam - Constitutional Vitals: Temp Pulse Resp BP Pulse Ox 97.7 F 74 18 134/74 99 05/13/17 11:20 05/13/17 14:00 05/13/17 11:20 05/13/17 14:00 05/13/17 10:00 Plan Activity: advance as tolerated Weight Bearing Status: Weight Bear as Tolerated Diet: renal Follow up with: TREY JOHNSON MD [Primary Care Provider] - 3-5 Days Prescriptions: Levofloxacin [Levaquin TAB] 500 mg PO Q48HR #3 tablet
[2017-05-13] MEDS: PERCOCET 5/325 PO PRN (16:15)
--- NOTE | 2017-05-13 17:15 | Progress Note ---
Assessment and Plan - Patient Problems (1) Pneumonia Current Visit: Yes Status: Acute Qualifiers: Pneumonia type: due to unspecified organism Laterality: left Lung location: lower lobe of lung Qualified Code(s): J18.1 - Lobar pneumonia, unspecified organism Plan to address problem: IV ABXs as per primary attending, dose renally adjusted. (2) ESRD (end stage renal disease) Current Visit: Yes Status: Chronic Plan to address problem: cont HD on MWF. stable for discharge after HD today from renal stand point. (3) Anemia in chronic kidney disease Current Visit: No Status: Acute Plan to address problem: Hb at target, no need for EPO (4) HTN (hypertension) Current Visit: No Status: Chronic Plan to address problem: BP stable. resume home BP meds Subjective Date of service: 05/13/17 Principal diagnosis: ESRD Interval history: Pt awake, alert, in NAD Objective - Vital Signs Vital signs: Vital Signs - 12hr 05/13/17 05/13/17 05/13/17 07:03 09:01 10:00 Temperature 98.3 F 97.5 F L Pulse Rate 77 76 74 Respiratory 20 18 Rate Blood Pressure Blood Pressure 126/74 139/82 [Right] O2 Sat by Pulse 96 98 99 Oximetry 05/13/17 05/13/17 05/13/17 11:20 11:30 11:45 Temperature 97.7 F Pulse Rate 73 74 75 Respiratory 18 Rate Blood Pressure 138/75 142/81 126/74 Blood Pressure [Right] O2 Sat by Pulse Oximetry 05/13/17 05/13/17 05/13/17 12:00 12:15 12:30 Temperature Pulse Rate 72 71 75 Respiratory Rate Blood Pressure 134/77 121/68 127/79 Blood Pressure [Right] O2 Sat by Pulse Oximetry 05/13/17 05/13/17 05/13/17 12:45 13:00 13:15 Temperature Pulse Rate 71 72 73 Respiratory Rate Blood Pressure 127/72 149/78 156/81 Blood Pressure [Right] O2 Sat by Pulse Oximetry 05/13/17 05/13/17 05/13/17 13:30 13:45 14:00 Temperature Pulse Rate 82 75 74 Respiratory Rate Blood Pressure 149/80 139/77 134/74 Blood Pressure [Right] O2 Sat by Pulse Oximetry 05/13/17 05/13/17 05/13/17 14:15 14:30 14:50 Temperature Pulse Rate 74 74 72 Respiratory Rate Blood Pressure 135/75 121/75 122/63 Blood Pressure [Right] O2 Sat by Pulse Oximetry 05/13/17 15:10 Temperature 97.9 F Pulse Rate 70 Respiratory 18 Rate Blood Pressure 130/64 Blood Pressure [Right] O2 Sat by Pulse Oximetry - General Appearance General appearance: well-developed, well-nourished, appears stated age EENT: ATNC, PERRL, mucous membranes moist Neck: no JVD Respiratory: Present: Clear to Ascultation Cardiology: regular, S1S2 Gastrointestinal: normoactive bowel sounds Integumentary: no rash, other (no edema ) Neurologic: no focal deficit, alert and oriented x3, strength 5/5, CN 3-12 intact Psychiatric: mood/affect appropriate, cooperative - Lab 05/13/17 05:53 05/13/17 05:53 Most recent lab results Calcium 8.7 mg/dL (8.4-10.2) 05/13/17 05:53
[2017-05-13 17:51] VITALS: BP 131/73
--- NOTE | 2017-05-14 21:38 | Treadmill Report ---
THALLIUM STRESS TEST REPORT LEFT VENTRICLE: Left ventricular chamber size is within normal limits. Perfusion study demonstrates mild diaphragmatic attenuation artifact, otherwise homogeneous uptake of the tracer in all segments, no significant perfusion defects identified. Gated analysis demonstrates normal left ventricular systolic function, ejection fraction of 61%. CONCLUSION: No demonstrable ischemia on thallium perfusion imaging. Recommend clinical correlation. JOB# [id number] CA/NTS
== END 2017-05-13 18:00 | disposition home or self-care (01) | DRG 193 ==
LOC: ED 18:35 → 4A 22:22
PROVIDERS: ADMIT Internal Medicine; ATTEND Internal Medicine
PROC: 5A1D70Z Performance of Urinary Filtration, Intermittent, Less than 6 Hours Per Day (ICD-10-PCS; principal; 2017-05-13)
DX: J18.9 Pneumonia, unspecified organism (principal); N18.6 End stage renal disease; I13.2 Hypertensive heart and chronic kidney disease with heart failure and with stage 5 chronic kidney disease, or end stage renal disease; I25.110 Atherosclerotic heart disease of native coronary artery with unstable angina pectoris; J44.0 Chronic obstructive pulmonary disease with (acute) lower respiratory infection; E11.22 Type 2 diabetes mellitus with diabetic chronic kidney disease; Z86.73 Personal history of transient ischemic attack (TIA), and cerebral infarction without residual deficits; I25.2 Old myocardial infarction; Z95.5 Presence of coronary angioplasty implant and graft; Z79.82 Long term (current) use of aspirin; Z79.899 Other long term (current) drug therapy; E86.1 Hypovolemia; Z82.49 Family history of ischemic heart disease and other diseases of the circulatory system; Z83.3 Family history of diabetes mellitus; M10.9 Gout, unspecified; D63.1 Anemia in chronic kidney disease; E87.5 Hyperkalemia
CPT/HCPCS: 36415; 71045; 78452; 80048; 80053; 80061; 82550; 82553; 82962; 84132; 84484; 85025; 85027; 85610; 85730; 87040; 93005; 93010; 93017; 94760; 96361; 96374; 96375; 99291; A9270-GY; A9502; J0456; J0696; J1644; J1956; J2405; J2785; J7030; J7040; J7050

== ENCOUNTER 2017-05-16 17:29 | Inpatient (IN) | payer MEDICARE ==
[2017-05-16] MEDS ORDERED: NACL 0.9% 500 ML 500 ML IV ONE (18:13)
[2017-05-16 18:16] LABS: Hemoglobin 11.6 gm/dl (11.8-15.2)
--- NOTE | 2017-05-16 18:25 | XRay Report ---
FINAL REPORT EXAM: XR CHEST 1V AP HISTORY: possible Sepsis TECHNIQUE: upright single view chest PRIORS: Comparison is dated May 10, 2017 FINDINGS: Cardiac and mediastinal contours are unremarkable. No focal pulmonary infiltrate is identified. No pleural fluid collection seen. Pulmonary vasculature is unremarkable. IMPRESSION: Negative single-view chest
[2017-05-16 18:35] LABS: Creatine Kinase MB 1.2 ng/mL (0.0-4.0)
[2017-05-16 18:36] LABS: Calcium 9.7 mg/dL (8.4-10.2)
[2017-05-16 18:37] LABS: INR 0.86 (0.87-1.13)
[2017-05-16 18:38] LABS: Eosinophils % (Auto) 2.2 % (0.0-4.3); Hematocrit 35.3 % (35.5-45.6); Mean Corpuscular HGB Conc 33 % (32-34); Mean Corpuscular Hemoglobin 32 pg (28-32); Mean Corpuscular Volume 97 fl (84-94); Monocytes % (Auto) 13.9 % (0.0-7.3); Red Blood Count 3.65 M/mm3 (3.65-5.03); Red Cell Distribution Width 16.3 % (13.2-15.2)
[2017-05-16 18:40] LABS: Platelet Count 184 K/mm3 (140-440)
--- NOTE | 2017-05-16 18:43 | Emergency Department Report ---
ED General Adult HPI - General Chief complaint: Dyspnea/Respdistress Stated complaint: WAYNE Time Seen by Provider: 05/16/17 17:39 Source: EMS Mode of arrival: Stretcher Limitations: No Limitations - History of Present Illness Initial comments: Mr. Albert presents with sudden onset of chest pain relating to his back shortness of breath during and hemodialysis session today. EMS noted hypoxia in the 80s which improved with nonrebreather high flow oxygen. Pain is sharp, severe. Pain does not change with movement. He's had mild cough. He denies fever. Denies headache. Denies abdominal pain. Denies leg pain. Recently discharged from the hospital 2 days ago for pneumonia. I reviewed electronic medical record. Recent Myocardial perfusion scan negative for ischemia. -: Sudden - Related Data Home Medications Medication Instructions Recorded Confirmed Last Taken Aspirin [Aspirin BABY CHEW TAB] 81 mg PO DAILY 03/02/14 05/12/17 1 Day Ago ~05/11/17 amLODIPine [Norvasc] 10 mg PO DAILY 03/02/14 05/12/17 1 Day Ago ~05/11/17 Previous Rx's Medication Instructions Recorded Last Taken Type hydrOXYzine HCL [Atarax] 25 mg PO Q6H PRN #20 tablet 12/31/16 1 Day Ago Rx ~05/11/17 Omeprazole Magnesium [PriLOSEC Otc] 20 mg PO QDAY #14 tablet. 01/10/17 1 Day Ago Rx ~05/11/17 Sevelamer Carbonate [Renvela] 800 mg PO TIDWM #270 tablet 03/04/17 1 Day Ago Rx ~05/11/17 Levofloxacin [Levaquin TAB] 500 mg PO Q48HR #3 tablet 05/13/17 Unknown Rx Allergies Allergy/AdvReac Type Severity Reaction Status Date / Time No Known Allergies Allergy Verified 02/28/17 00:21 ED Review of Systems ROS: Stated complaint: WAYNE Other details as noted in HPI Comment: All other systems reviewed and negative Constitutional: malaise. denies: fever ED Past Medical Hx - Past Medical History Hx Hypertension: Yes Hx CVA: Yes (x2) Hx Heart Attack/AMI: No Hx Congestive Heart Failure: Yes Hx Diabetes: Yes Hx Deep Vein Thrombosis: No Hx Liver Disease: No Hx Renal Disease: Yes (end-stage renal disease) Hx Arthritis: No Hx Seizures: Yes Hx Asthma: No Hx COPD: No Additional medical history: Cardiac Stents, dialysis M-W-F - Surgical History Hx Coronary Stent: No Hx Pacemaker: No Hx Internal Defibrillator: No Additional Surgical History: Cardiac stents 3 months ago 08/22? av graft to left arm - Social History Smoking Status: Former Smoker Substance Use Type: None - Medications Home Medications: Home Medications Medication Instructions Recorded Confirmed Last Taken Type Aspirin [Aspirin BABY CHEW TAB] 81 mg PO DAILY 03/02/14 05/12/17 1 Day Ago History ~05/11/17 amLODIPine [Norvasc] 10 mg PO DAILY 03/02/14 05/12/17 1 Day Ago History ~05/11/17 hydrOXYzine HCL [Atarax] 25 mg PO Q6H PRN #20 tablet 12/31/16 05/12/17 1 Day Ago Rx ~05/11/17 Omeprazole Magnesium [PriLOSEC Otc] 20 mg PO QDAY #14 tablet. 01/10/17 1 Day Ago Rx ~05/11/17 Sevelamer Carbonate [Renvela] 800 mg PO TIDWM #270 tablet 03/04/17 05/12/17 1 Day Ago Rx ~05/11/17 Levofloxacin [Levaquin TAB] 500 mg PO Q48HR #3 tablet 05/13/17 Unknown Rx ED Physical Exam - General Limitations: No Limitations General appearance: alert, in distress (mild respiratory distress speaking full word sentences) - Head Head exam: Present: atraumatic, normocephalic - Eye Eye exam: Present: normal appearance - ENT ENT exam: Present: mucous membranes moist - Neck Neck exam: Present: normal inspection. Absent: tenderness, meningismus - Respiratory Respiratory exam: Present: normal lung sounds bilaterally, respiratory distress , rales. Absent: wheezes, rhonchi - Cardiovascular Cardiovascular Exam: Present: regular rate, normal rhythm, normal heart sounds. Absent: systolic murmur, diastolic murmur, rubs, gallop - GI/Abdominal GI/Abdominal exam: Present: soft, distended. Absent: tenderness, guarding, rebound - Rectal Rectal exam: Present: deferred - Extremities Exam Extremities exam: Present: normal inspection - Back Exam Back exam: Present: normal inspection - Neurological Exam Neurological exam: Present: alert, oriented X3 - Psychiatric Psychiatric exam: Present: normal affect, normal mood - Skin Skin exam: Present: warm, dry, intact, normal color. Absent: rash ED Course Vital Signs 05/16/17 05/16/17 05/16/17 17:33 17:36 17:39 Temperature 98.1 F Pulse Rate 89 Respiratory 16 28 H Rate Blood Pressure 114/64 Blood Pressure [Right] O2 Sat by Pulse 90 100 80 L Oximetry 05/16/17 05/16/17 05/16/17 17:46 18:00 18:15 Temperature Pulse Rate 92 H Respiratory Rate Blood Pressure 93/54 94/58 Blood Pressure [Right] O2 Sat by Pulse 100 100 96 Oximetry 05/16/17 05/16/17 05/16/17 18:30 18:46 18:50 Temperature Pulse Rate Respiratory 34 H Rate Blood Pressure 94/58 94/58 Blood Pressure [Right] O2 Sat by Pulse 96 94 Oximetry 05/16/17 05/16/17 19:00 19:16 Temperature Pulse Rate 90 110 H Respiratory 34 H 34 H Rate Blood Pressure 100/61 Blood Pressure 85/47 [Right] O2 Sat by Pulse 93 100 Oximetry ED Medical Decision Making - Lab Data Result diagrams: 05/16/17 18:04 05/16/17 18:04 Critical Care Time: Yes (45) Critical care attestation.: If time is entered above; I have spent that time in minutes in the direct care of this critically ill patient, excluding procedure time. I came to the bedside immediately. CONCERN for respiratory failure or cardiovascular collapse ED Disposition Clinical Impression: Acute respiratory failure with hypoxia, ESRD needing dialysis Disposition: OP ADMIT IP TO THIS HOSP Is pt being admited?: Yes Does the pt Need Aspirin: No Time of Disposition: 19:53
[2017-05-16] MEDS ORDERED: ZOFRAN ONE (18:47)
[2017-05-16] MEDS ORDERED: MORPHINE ONE (18:47)
[2017-05-16] MEDS ORDERED: ZOFRAN IV ONE (18:52)
[2017-05-16] MEDS ORDERED: MORPHINE IV ONE ×2 (18:52→19:54)
[2017-05-16 19:12] LABS: Basophils % (Manual) 0 % (0.0-1.8); Total Cells Counted 100
--- NOTE | 2017-05-16 19:50 | History and Physical Report ---
History of Present Illness Chief complaint: I cant breathe, my chest hurts History of present illness: 62 YO Male with HTN, CVA, CHF, DM, ESRD on HD (M,W,F), CAD S/P Stent Placement presents to ED for evaluation. Pt is in severe respiratory distress and is unable to speak in complete sentences. Pt mere states that "I got sick on dialysis", and "My chest hurts". Pt states that he has experienced pain in his chest and difficulty breathing over the past 2 days with worsening symptoms over the past 6 hours. Pt states that symptoms were acutely worsened during dialysis. Pt states that he cannot breathe and has pain in his chest. Pain is 10 /10, substernal, nonradiating, worse with breathing, associated with shortness of breath. Pt denies fever, chills, palpitations, NVD, productive cough, BRBPR, unintentional weight loss, night sweats. Pt seen and evaluated in ED and found to have hypoxemic respiratory failure with oxygen saturation of 82% on room air as well as hypotensive with systolic BP around 100. Pt treated with supportive care, and initiated on heparin drip protocol. Nephrology, and cardiology teams consulted in ED. Pt admitted to ICU. Past History Past Medical History: CAD, diabetes, ESRD, heart failure, hypertension, seizures , stroke Past Surgical History: Other (Cardiac stent placement) Social history: , lives with family. denies: smoking, alcohol abuse, prescription drug abuse Family history: diabetes, hypertension Medications and Allergies Allergies Allergy/AdvReac Type Severity Reaction Status Date / Time No Known Allergies Allergy Verified 02/28/17 00:21 Home Medications Medication Instructions Recorded Confirmed Last Taken Type Aspirin [Aspirin BABY CHEW TAB] 81 mg PO DAILY 03/02/14 05/12/17 1 Day Ago History ~05/11/17 amLODIPine [Norvasc] 10 mg PO DAILY 03/02/14 05/12/17 1 Day Ago History ~05/11/17 hydrOXYzine HCL [Atarax] 25 mg PO Q6H PRN #20 tablet 12/31/16 05/12/17 1 Day Ago Rx ~05/11/17 Omeprazole Magnesium [PriLOSEC Otc] 20 mg PO QDAY #14 tablet. 01/10/17 1 Day Ago Rx ~05/11/17 Sevelamer Carbonate [Renvela] 800 mg PO TIDWM #270 tablet 03/04/17 05/12/17 1 Day Ago Rx ~05/11/17 Levofloxacin [Levaquin TAB] 500 mg PO Q48HR #3 tablet 05/13/17 Unknown Rx Review of Systems Constitutional: weakness, no weight loss, no weight gain, no fever, no chills Ears, nose, mouth and throat: no ear pain, no ear discharge, no tinnitis, no decreased hearing, no nose pain, no nasal congestion Cardiovascular: chest pain, shortness of breath, no orthopnea, no palpitations, no paroxysmal nocturnal dyspnea, no leg edema Respiratory: no cough, no cough with sputum, no excessive sputum Gastrointestinal: no abdominal pain, no nausea, no vomiting, no diarrhea, no constipation Genitourinary Male: no hematuria, no flank pain, no discharge, no urinary frequency, no urinary hesitancy Rectal: no pain, no incontinence, no bleeding Musculoskeletal: no neck pain, no shooting arm pain, no arm numbness/tingling, no low back pain, no shooting leg pain Integumentary: no rash, no pruritis, no redness, no sores, no wounds, no jaundice Neurological: no head injury, no transient paralysis, no paralysis, no numbness , no tingling Psychiatric: anxiety, no memory loss, no change in sleep habits, no sleep disturbances, no insomnia, no hypersomnia Endocrine: no cold intolerance, no heat intolerance, no polyphagia, no excessive thirst, no polydipsia, no polyuria, no nocturia Hematologic/Lymphatic: no easy bruising, no easy bleeding, no lymphadenopathy, no lymphedema Allergic/Immunologic: no urticaria, no allergic rhinitis, no wheezing, no persistent infections, no anaphylaxis Exam - Constitutional Vitals: Temp Pulse Resp BP Pulse Ox 98.1 F 110 H 34 H 85/47 100 05/16/17 17:33 05/16/17 19:16 05/16/17 19:16 05/16/17 19:16 05/16/17 19:16 General appearance: Present: severe distress - EENT Eyes: Present: PERRL ENT: hearing intact, clear oral mucosa - Neck Neck: Present: supple, normal ROM - Respiratory Respiratory effort: labored Respiratory: bilateral: diminished, rhonchi - Cardiovascular Rhythm: other (tachycardia) Heart Sounds: Present: S1 & S2. Absent: rub, click Peripheral Pulses: within normal limits - Abdominal General gastrointestinal: Present: soft, non-tender, non-distended, normal bowel sounds Male genitourinary: Present: normal - Integumentary Integumentary: Present: clear, warm, dry - Musculoskeletal Musculoskeletal: gait normal, strength equal bilaterally - Psychiatric Psychiatric: intact judgment & insight, agitated - Neurologic Neurologic: CNII-XII intact, moves all extremities Results - Labs CBC & Chem 7: 05/16/17 18:04 05/16/17 18:04 Labs: Abnormal lab results 05/16/17 05/16/17 05/16/17 Range/Units 18:04 18:04 18:04 Hgb 11.6 L (11.8-15.2) gm/dl Hct 35.3 L (35.5-45.6) % MCV 97 H (84-94) fl RDW 16.3 H (13.2-15.2) % [place] % (Auto) 13.9 H (0.0-7.3) % Seg Neuts % (Manual) 73.0 H (40.0-70.0) % Monocytes % (Manual) 12.0 H (0.0-7.3) % Lymphocytes # (Manual) 1.0 L (1.2-5.4) K/mm3 Monocytes # (Manual) 0.9 H (0.0-0.8) K/mm3 PT 12.1 L (12.2-14.9) Sec. INR 0.86 L (0.87-1.13) VBG pH (7.320-7.420) Chloride 94.6 L (98-107) mmol/L Carbon Dioxide 31 H D (22-30) mmol/L Creatinine 5.0 H D (0.8-1.5) mg/dL Troponin T 0.057 H (0.00-0.029) ng/mL NT-Pro-B Natriuret Pep 3437 H (0-900) pg/mL 05/16/17 Range/Units 18:04 Hgb (11.8-15.2) gm/dl Hct (35.5-45.6) % MCV (84-94) fl RDW (13.2-15.2) % [place] % (Auto) (0.0-7.3) % Seg Neuts % (Manual) (40.0-70.0) % Monocytes % (Manual) (0.0-7.3) % Lymphocytes # (Manual) (1.2-5.4) K/mm3 Monocytes # (Manual) (0.0-0.8) K/mm3 PT (12.2-14.9) Sec. INR (0.87-1.13) VBG pH 7.563 H (7.320-7.420) Chloride (98-107) mmol/L Carbon Dioxide (22-30) mmol/L Creatinine (0.8-1.5) mg/dL Troponin T (0.00-0.029) ng/mL NT-Pro-B Natriuret Pep (0-900) pg/mL Assessment and Plan - Patient Problems (1) Unstable angina Current Visit: Yes Status: Suspected Plan to address problem: Admit to ICU, Heparin drip, telemetry monitoring, serial EKG, CTA chest, supplemental oxygen, nebulizer therapy, NIPPV as clinically indicated (2) CHF (congestive heart failure) Current Visit: Yes Status: Acute Qualifiers: Heart failure type: diastolic Heart failure chronicity: acute on chronic Qualified Code(s): I50.33 - Acute on chronic diastolic (congestive) heart failure Plan to address problem: Strict I/O, monitor uop q shift, cardiology consulted in ED, supplemental oxygen , (3) Respiratory failure Current Visit: Yes Status: Acute Qualifiers: Chronicity: acute Respiratory failure complication: hypoxia Qualified Code(s): J96.01 - Acute respiratory failure with hypoxia Plan to address problem: Supplemental oxygen, nebulizer therapy, pulse oximetry, CTA chest, NIPPV as clinically indicated. (4) Dialysis disequilibrium syndrome Current Visit: No Status: Acute Plan to address problem: Nephrology consulted in ED, BMP, pain control, supportive care. (5) ESRD (end stage renal disease) Current Visit: Yes Status: Acute Plan to address problem: Nephrology consulted for dialysis, monitor uop q shift, strict I/O (6) DVT prophylaxis Current Visit: No Status: Acute
[2017-05-16] MEDS ORDERED: SODIUM CHLORIDE FLUSH SYRINGE 10 ML IV PRN (20:04)
[2017-05-16] MEDS ORDERED: PROVENTIL IH PRN (20:04)
--- NOTE | 2017-05-16 20:14 | Cat Scan Report ---
FINAL REPORT EXAM: CT ANGIO CHEST HISTORY: chest pain hyxpoxia TECHNIQUE: CT chest CT angiogram with reconstructions PRIORS: None. FINDINGS: There is no evidence of filling defect within the central pulmonary vasculature to suggest the presence of acute pulmonary embolus. No evidence of mediastinal pathologic lymph node enlargement Heart and great vessels are unremarkable. The aorta is normal in caliber. There is focal linear opacity within the left lower lobe consistent with an area of atelectasis or parenchymal scarring. Mild dependent atelectasis bilaterally. Noted is a stent within the left axillary vein Visualized portion of the upper abdomen demonstrates no acute change. IMPRESSION: Focal atelectasis or scarring at the left lower lobe Left axillary venous stent No CT evidence for acute pulmonary embolus
[2017-05-16] MEDS ORDERED: ATIVAN IV PRN (20:32)
[2017-05-16] MEDS ORDERED: HEPARIN 10,000 UNITS/10 ML IV ONE (20:32)
[2017-05-16] MEDS: HEPARIN/ 0.45% NACL-25,000 UNIT/500 ML 25,000 UNIT/500 ML BAG IV SCH (21:45)
[2017-05-17 04:27] LABS: Albumin 3.7 g/dL (3.9-5); Calcium 9.1 mg/dL (8.4-10.2)
[2017-05-17] MEDS: SODIUM CHLORIDE FLUSH SYRINGE 10 ML IV SCH ×3 (07:35→22:08)
[2017-05-17] MEDS ORDERED: NACL 0.9% 100 ML IV PRN ×2 (08:20→12:13)
--- NOTE | 2017-05-17 08:20 | Consultation ---
History of Present Illness - Reason for Consult Consult date: 05/17/17 end stage renal disease Requesting physician: ZANDER HARDY - History of Present Illness 44-year-old old male who is well known to me with a history of end stage renal disease, hypertension who was just recently discharged from this hospital after treatment for pneumonia. Patient says he was still coughing but it was nonproductive and he was having chest pain. He went to dialysis and chest pain worsened. Describes it as a sharp pain in the substernal area severe rating it as a 10 over 10. Pain is nonradiating and nonpleuritic. No associated palpitations, dizziness and diaphoresis. Also patient was short of breath. The staff at dialysis called EMS and patient's O2 sat was 82% in room air. He was started on oxygen and brought to the hospital. Blood pressure was low at 85 /47 mmHg. Past History Past Medical History: CAD, diabetes, ESRD, heart failure, hypertension, seizures , stroke Past Surgical History: Other (Cardiac stent placement, AV fistula placement, permacath placement) Social history: , lives with family. denies: smoking, alcohol abuse, prescription drug abuse Family history: diabetes, hypertension Medications and Allergies Allergies Allergy/AdvReac Type Severity Reaction Status Date / Time No Known Allergies Allergy Verified 02/28/17 00:21 Home Medications Medication Instructions Recorded Confirmed Last Taken Type Aspirin [Aspirin BABY CHEW TAB] 81 mg PO DAILY 03/02/14 05/17/17 1 Day Ago History ~05/11/17 amLODIPine [Norvasc] 10 mg PO DAILY 03/02/14 05/17/17 1 Day Ago History ~05/16/17 10 hydrOXYzine HCL [Atarax] 25 mg PO Q6H PRN #20 tablet 12/31/16 05/17/17 1 Day Ago Rx ~05/16/17 25 Omeprazole Magnesium [PriLOSEC Otc] 20 mg PO QDAY #14 tablet. 01/10/17 1 Day Ago Rx ~05/16/17 20 Sevelamer Carbonate [Renvela] 800 mg PO TIDWM #270 tablet 03/04/17 05/17/17 1 Day Ago Rx ~05/16/17 800 Levofloxacin [Levaquin TAB] 500 mg PO Q48HR #3 tablet 05/13/17 05/17/17 1 Day Ago Rx ~05/16/17 500 Active Meds: Active Medications Albuterol (Proventil) 2.5 mg IH Q3HRT PRN PRN Reason: Shortness Of Breath Aspirin (Baby Aspirin) 81 mg PO DAILY GORDO Hydroxyzine HCl (Atarax) 25 mg PO Q6H PRN PRN Reason: Itching Heparin Sodium/Sodium Chloride (Heparin/ 0.45% Nacl-25,000 Unit/500 Ml) 25,000 unit in 500 mls @ 20 mls/hr IV TITRATE GORDO; Protocol Last Titration: 05/17/17 04:39 Dose: 1,100 units/hr, 22 mls/hr Lorazepam (Ativan) 1 mg IV Q4H PRN PRN Reason: Agitation Pantoprazole Sodium (Protonix) 20 mg PO QDAY GORDO Sevelamer Carbonate (Renvela) 800 mg PO TIDWM GORDO Sodium Chloride (Sodium Chloride Flush Syringe 10 Ml) 10 ml IV BID GORDO Last Admin: 05/17/17 07:35 Dose: Not Given Sodium Chloride (Sodium Chloride Flush Syringe 10 Ml) 10 ml IV PRN PRN PRN Reason: LINE FLUSH Review of Systems All systems: negative (Constitutional: no fever or chills. No anorexia or weight loss. HEENT: No sore throat or sinus drainage no hearing or vision impairment . Cardiovascular: See history of present illness. Respiratory: See history of present illness Gastrointestinal: He admits to nausea and vomiting. No diarrhea, abdominal pain, hematemesis or melena. Genitourinary: He still makes some urine. No frequency urgency dysuria or hematuria. hematologic: No abnormal bleeding or bruising. Integumentary: He admits to itching but no rash. Neurological: No headache no focal weakness or numbness, no syncope or seizures. Musculoskeletal: Admits to joint pains and stiffness. Psychiatry: Admits to anxiety and depression) Exam - Vital Signs Vital signs: Vital Signs Temp Pulse Resp BP Pulse Ox 98.1 F 89 16 114/64 90 05/16/17 17:33 05/16/17 17:33 05/16/17 17:33 05/16/17 17:33 05/16/17 17:33 - Physical Exam Narrative exam: Middle-aged -[place] male lying in bed in no acute distress HEENT: NCAT, pink oral mucous membrane Neck: Supple, no venous distention CVS: S1S2 RRR with no murmur, rub or gallop Chest: Diminished breath sounds with bibasilar rales Abdomen: Protuberant, soft, nontender, no organomegaly, bowel sounds are present Extremities: No edema, no clubbing Neuro: Awake, alert no focal deficits Results - Lab Results 05/16/17 18:04 05/17/17 03:58 Most recent lab results Calcium 9.1 mg/dL (8.4-10.2) 05/17/17 03:58 Assessment and Plan - Patient Problems (1) Unstable angina Current Visit: Yes Status: Suspected Plan to address problem: Cardiology has been consulted. Chest pain has improved. CT angiogram showed no pulmonary embolism. Continue management by informatics physician (2) Chronic systolic (congestive) heart failure Current Visit: Yes Status: Acute Plan to address problem: Fluid removal on dialysis. Consider beta carrillo if blood pressure will tolerate (3) Hypertensive chronic kidney disease with stage 5 chronic kidney disease or end stage renal disease Current Visit: No Status: Acute Plan to address problem: Follow blood pressure on current medications (4) Type 2 diabetes mellitus with diabetic nephropathy Current Visit: No Status: Acute Plan to address problem: Blood sugar management by primary attending (5) ESRD (end stage renal disease) Current Visit: Yes Status: Acute Plan to address problem: Hemodialysis started this morning. Resume regular schedule of dialysis on Friday, Friday and Friday next week. (6) Anemia in chronic kidney disease Current Visit: No Status: Acute Plan to address problem: Continue Erythropoetin on dialysis
[2017-05-17] MEDS: RENVELA PO SCH ×2 (09:51→15:20)
[2017-05-17] MEDS ORDERED: NON-FORMULARY (Omeprazole Magnesium [Prilosec Otc] 20 MG) PO SCH (10:00)
[2017-05-17] MEDS: PROTONIX PO SCH (10:22)
[2017-05-17] MEDS: BABY ASPIRIN PO SCH (10:22)
--- NOTE | 2017-05-17 11:11 | Progress Note ---
Subjective Date of service: 05/17/17 Interval history: CONSULT DICTATED ATYPICAL CP//Hx NEG. THALLIUM SOB//AI MURMUR WILL ORDER ECHO Objective Vital Signs Temp Pulse Pulse Pulse Resp BP BP 05/17/17 10:21 87 14 133/83 05/17/17 10:11 85 12 120/72 05/17/17 10:01 93 H 9 L 120/72 05/17/17 09:51 86 17 120/72 05/17/17 09:41 87 12 120/72 05/17/17 09:31 89 12 120/72 05/17/17 09:21 88 10 L 120/72 05/17/17 09:11 91 H 13 120/72 05/17/17 09:01 89 12 120/72 05/17/17 08:51 81 10 L 113/74 05/17/17 08:41 83 12 113/74 05/17/17 08:31 87 12 113/74 05/17/17 08:21 82 11 L 113/74 05/17/17 08:11 83 13 113/74 05/17/17 08:00 97.6 F 85 14 118/68 05/17/17 07:50 121 H 15 113/74 05/17/17 07:41 94 H 14 05/17/17 07:31 93 H 15 05/17/17 07:21 89 21 05/17/17 07:18 120/66 05/17/17 06:25 98.2 F 82 21 109/68 05/17/17 05:20 78 11 L 120/66 05/17/17 05:11 77 12 125/77 05/17/17 05:00 81 11 L 125/77 05/17/17 04:45 79 13 116/73 05/17/17 04:31 81 12 107/70 05/17/17 04:15 80 13 108/70 05/17/17 04:00 81 12 108/70 05/17/17 03:45 83 13 116/73 05/17/17 03:31 90 13 127/70 05/17/17 03:15 89 13 117/73 05/17/17 03:00 83 14 117/73 05/17/17 02:45 80 12 107/69 05/17/17 02:31 80 12 111/67 04/07/18 02:15 86 13 127/74 04/07/18 02:00 94/51 05/17/17 01:45 94/51 05/17/17 01:31 92 H 94/44 05/17/17 01:15 115/71 05/17/17 01:00 115/71 05/17/17 00:45 107/63 05/17/17 00:31 106/67 05/17/17 00:15 112/70 05/17/17 00:00 112/70 05/16/17 23:45 119/66 05/16/17 23:31 117/72 05/16/17 23:15 106/70 05/16/17 23:00 84 106/70 05/16/17 22:45 115/82 05/16/17 22:31 117/66 05/16/17 22:15 112/68 05/16/17 22:00 112/68 05/16/17 21:45 104/60 05/16/17 21:31 104/60 05/16/17 21:15 102/57 05/16/17 21:00 102/57 05/16/17 20:45 63 108/59 05/16/17 20:31 108/59 05/16/17 20:15 119/70 05/16/17 20:00 113/65 05/16/17 19:48 119/70 05/16/17 19:16 90 17 100/61 85/47 05/16/17 19:12 20 100/61 18 19:00 90 34 H 100/61 18 18:52 89 32 H 05/16/17 18:50 34 H 05/16/17 18:46 94/58 05/16/17 18:42 05/16/17 18:30 94/58 05/16/17 18:15 92 H 94/58 05/16/17 18:00 93/54 05/16/17 17:46 05/16/17 17:39 05/16/17 17:36 28 H 05/16/17 17:33 98.1 F 89 16 114/64 Pulse Ox 05/17/17 10:21 100 05/17/17 10:11 97 05/17/17 10:01 98 05/17/17 09:51 98 05/17/17 09:41 98 05/17/17 09:31 99 05/17/17 09:21 97 05/17/17 09:11 99 05/17/17 09:01 99 05/17/17 08:51 99 05/17/17 08:41 99 05/17/17 08:31 99 05/17/17 08:21 98 05/17/17 08:11 97 05/17/17 08:00 98 05/17/17 07:50 90 05/17/17 07:41 91 05/17/17 07:31 88 05/17/17 07:21 97 05/17/17 07:18 75 L 05/17/17 06:25 96 05/17/17 05:20 99 05/17/17 05:11 99 05/17/17 05:00 99 05/17/17 04:45 98 05/17/17 04:31 96 05/17/17 04:15 89 05/17/17 04:00 90 05/17/17 03:45 88 05/17/17 03:31 87 05/17/17 03:15 95 05/17/17 03:00 95 05/17/17 02:45 100 05/17/17 02:31 100 05/17/17 02:15 98 05/17/17 02:00 98 05/17/17 01:45 89 05/17/17 01:31 87 05/17/17 01:15 85 05/17/17 01:00 84 05/17/17 00:45 96 05/17/17 00:31 95 05/17/17 00:15 95 05/17/17 00:00 96 05/16/17 23:45 93 05/16/17 23:31 94 05/16/17 23:15 95 05/16/17 23:00 93 05/16/17 22:45 93 05/16/17 22:31 95 05/16/17 22:15 96 05/16/17 22:00 97 05/16/17 21:45 94 05/16/17 21:31 94 05/16/17 21:15 96 05/16/17 21:00 97 05/16/17 20:45 96 05/16/17 20:31 98 05/16/17 20:15 96 05/16/17 20:00 94 05/16/17 19:48 94 05/16/17 19:16 92 05/16/17 19:12 91 05/16/17 19:00 93 05/16/17 18:52 92 05/16/17 18:50 05/16/17 18:46 94 05/16/17 18:42 97 05/16/17 18:30 96 05/16/17 18:15 96 05/16/17 18:00 100 05/16/17 17:46 100 05/16/17 17:39 80 L 05/16/17 17:36 100 05/16/17 17:33 90 - Labs and Meds Cardiac Enzymes 05/16/17 05/17/17 Range/Units 18:04 03:58 AST 21 15 (5-40) units/L CK-MB (CK-2) 1.2 (0.0-4.0) ng/mL Coagulation 05/16/17 Range/Units 18:04 PT 12.1 L (12.2-14.9) Sec. INR 0.86 L (0.87-1.13) CBC 05/16/17 Range/Units 18:04 WBC 7.1 (4.5-11.0) K/mm3 RBC 3.65 (3.65-5.03) M/mm3 Hgb 11.6 L (11.8-15.2) gm/dl Hct 35.3 L (35.5-45.6) % Plt Count 184 (140-440) K/mm3 Comprehensive Metabolic Panel 05/16/17 05/17/17 Range/Units 18:04 03:58 Sodium 140 140 (137-145) mmol/L Potassium 4.3 3.9 (3.6-5.0) mmol/L Chloride 94.6 L 95.1 L (98-107) mmol/L Carbon Dioxide 31 H D 31 H (22-30) mmol/L BUN 15 17 (9-20) mg/dL Creatinine 5.0 H D 5.9 H (0.8-1.5) mg/dL Glucose 87 96 (75-100) mg/dL Calcium 9.7 9.1 (8.4-10.2) mg/dL AST 21 15 (5-40) units/L ALT 14 12 (7-56) units/L Alkaline Phosphatase 80 77 (35-129) units/L Total Protein 8.2 7.3 (6.3-8.2) g/dL Albumin 4.0 3.7 L (3.9-5) g/dL
--- NOTE | 2017-05-17 11:40 | Progress Note ---
Assessment and Plan /Atypical chest pain Monitor at ICU, cont Heparin drip, telemetry monitoring, serial EKG, negative CTA chest, cont supplemental oxygen, nebulizer therapy, NIPPV as clinically indicated consult cardiology / CHF (congestive heart failure) Strict I/O, monitor uop q shift, follow cardiology recommendation, supplemental oxygen on admission, /Acute hypoxic Respiratory failure Now resolved with Supplemental oxygen, cont nebulizer therapy, pulse oximetry, NIPPV as clinically indicated. / Dialysis disequilibrium syndrome Nephrology consulted in ED, monitor BMP, pain control, supportive care. /ESRD (end stage renal disease) Nephrology consulted for dialysis, monitor uop q shift, strict I/O /DVT prophylaxis on heparin drip Brief history: 44-year-old old male with a history of end stage renal disease, hypertension who was just recently discharged from this hospital after treatment for pneumonia went to dialysis outpt and c/o chest pain during HD. The staff at dialysis called EMS and patient's O2 sat was 82% in room air. He was started on oxygen and brought to the hospital. Blood pressure was low at 85/47 mmHg. Radiological test: CTA chest negative for PE, aortic dissection CXR no infiltrates Hospitalist Physical exam: GENERAL: elderly male lying on bed appeared to be in no discomfort. HEENT: Normocephalic. Atraumatic. No conjunctival congestion or icterus. Patient has moist mucous membranes. NECK: Supple. Trachea midline. CHEST/LUNGS: Clear to auscultated bilaterally, breathing nonlabored. No wheezes crackles or rhonchi. HEART/CARDIOVASCULAR: Regular in rate and rhythm. S1 and S2 positive. ABDOMEN: Abdomen is soft, nontender. Patient has normal bowel sounds. SKIN: There is no rash. Warm and dry. NEURO: No focal motor deficit. Follows command. MUSCULOSKELETAL: No joint effusion or tenderness. EXTRIMITY: No edema, no cyanosis or clubbing. PSYCH: Cooperative. Subjective Date of service: 05/17/17 Interval history: Patient seen and examined. Medical records and medication list reviewed. No acute event overnight noted by the RN. Patient denies any chest pain now or difficulty breathing. Discussed plan of care at bedside with patient and his . Objective - Constitutional Vitals: Vital Signs - 12hr 05/16/17 05/17/17 05/17/17 23:45 00:00 00:15 Temperature Pulse Rate Pulse Rate [ From Monitor] Pulse Rate [ None] Respiratory Rate Blood Pressure 119/66 112/70 112/70 O2 Sat by Pulse 93 96 95 Oximetry 05/17/17 05/17/17 05/17/17 00:31 00:45 01:00 Temperature Pulse Rate Pulse Rate [ From Monitor] Pulse Rate [ None] Respiratory Rate Blood Pressure 106/67 107/63 115/71 O2 Sat by Pulse 95 96 84 Oximetry 05/17/17 05/17/17 05/17/17 01:15 01:31 01:45 Temperature Pulse Rate 92 H Pulse Rate [ From Monitor] Pulse Rate [ None] Respiratory Rate Blood Pressure 115/71 94/44 94/51 O2 Sat by Pulse 85 87 89 Oximetry 05/17/17 05/17/17 05/17/17 02:00 02:15 02:31 Temperature Pulse Rate 86 80 Pulse Rate [ From Monitor] Pulse Rate [ None] Respiratory 13 12 Rate Blood Pressure 94/51 127/74 111/67 O2 Sat by Pulse 98 98 100 Oximetry 05/17/17 05/17/17 05/17/17 02:45 03:00 03:15 Temperature Pulse Rate 80 83 89 Pulse Rate [ From Monitor] Pulse Rate [ None] Respiratory 12 14 13 Rate Blood Pressure 107/69 117/73 117/73 O2 Sat by Pulse 100 95 95 Oximetry 05/17/17 05/17/17 05/17/17 03:31 03:45 04:00 Temperature Pulse Rate 90 83 81 Pulse Rate [ From Monitor] Pulse Rate [ None] Respiratory 13 13 12 Rate Blood Pressure 127/70 116/73 108/70 O2 Sat by Pulse 87 88 90 Oximetry 05/17/17 05/17/17 05/17/17 04:15 04:31 04:45 Temperature Pulse Rate 80 81 79 Pulse Rate [ From Monitor] Pulse Rate [ None] Respiratory 13 12 13 Rate Blood Pressure 108/70 107/70 116/73 O2 Sat by Pulse 89 96 98 Oximetry 05/17/17 05/17/17 05/17/17 05:00 05:11 05:20 Temperature Pulse Rate 81 77 78 Pulse Rate [ From Monitor] Pulse Rate [ None] Respiratory 11 L 12 11 L Rate Blood Pressure 125/77 125/77 120/66 O2 Sat by Pulse 99 99 99 Oximetry 05/17/17 05/17/17 05/17/17 06:25 07:18 07:21 Temperature 98.2 F Pulse Rate 89 Pulse Rate [ From Monitor] Pulse Rate [ 82 None] Respiratory 21 21 Rate Blood Pressure 109/68 120/66 O2 Sat by Pulse 96 75 L 97 Oximetry 05/17/17 05/17/17 05/17/17 07:31 07:41 07:50 Temperature Pulse Rate 93 H 94 H 121 H Pulse Rate [ From Monitor] Pulse Rate [ None] Respiratory 15 14 15 Rate Blood Pressure 113/74 O2 Sat by Pulse 88 91 90 Oximetry 05/17/17 05/17/17 05/17/17 08:00 08:11 08:21 Temperature 97.6 F Pulse Rate 83 82 Pulse Rate [ 85 From Monitor] Pulse Rate [ None] Respiratory 14 13 11 L Rate Blood Pressure 118/68 113/74 113/74 O2 Sat by Pulse 98 97 98 Oximetry 05/17/17 05/17/17 05/17/17 08:31 08:41 08:51 Temperature Pulse Rate 87 83 81 Pulse Rate [ From Monitor] Pulse Rate [ None] Respiratory 12 12 10 L Rate Blood Pressure 113/74 113/74 113/74 O2 Sat by Pulse 99 99 99 Oximetry 05/17/17 05/17/17 05/17/17 09:01 09:11 09:21 Temperature Pulse Rate 89 91 H 88 Pulse Rate [ From Monitor] Pulse Rate [ None] Respiratory 12 13 10 L Rate Blood Pressure 120/72 120/72 120/72 O2 Sat by Pulse 99 99 97 Oximetry 05/17/17 05/17/17 05/17/17 09:31 09:41 09:51 Temperature Pulse Rate 89 87 86 Pulse Rate [ From Monitor] Pulse Rate [ None] Respiratory 12 12 17 Rate Blood Pressure 120/72 120/72 120/72 O2 Sat by Pulse 99 98 98 Oximetry 05/17/17 05/17/17 05/17/17 10:01 10:11 10:21 Temperature Pulse Rate 93 H 85 87 Pulse Rate [ From Monitor] Pulse Rate [ None] Respiratory 9 L 12 14 Rate Blood Pressure 120/72 120/72 133/83 O2 Sat by Pulse 98 97 100 Oximetry 05/17/17 05/17/17 05/17/17 10:31 10:41 10:51 Temperature Pulse Rate 85 86 82 Pulse Rate [ From Monitor] Pulse Rate [ None] Respiratory 16 18 14 Rate Blood Pressure 133/83 133/83 133/83 O2 Sat by Pulse 98 98 97 Oximetry 05/17/17 05/17/17 05/17/17 11:00 11:11 11:21 Temperature Pulse Rate 82 83 87 Pulse Rate [ From Monitor] Pulse Rate [ None] Respiratory 10 L 15 13 Rate Blood Pressure 107/66 107/66 107/66 O2 Sat by Pulse 97 98 98 Oximetry 05/17/17 11:31 Temperature Pulse Rate 82 Pulse Rate [ From Monitor] Pulse Rate [ None] Respiratory 13 Rate Blood Pressure 107/66 O2 Sat by Pulse 97 Oximetry - Labs CBC & Chem 7: 05/18/17 10:50 05/17/17 03:58 Labs: Abnormal lab results 05/16/17 05/16/17 05/16/17 Range/Units 18:04 18:04 18:04 Hgb 11.6 L (11.8-15.2) gm/dl Hct 35.3 L (35.5-45.6) % MCV 97 H (84-94) fl RDW 16.3 H (13.2-15.2) % Harmon % (Auto) 13.9 H (0.0-7.3) % Seg Neuts % (Manual) 73.0 H (40.0-70.0) % Monocytes % (Manual) 12.0 H (0.0-7.3) % Lymphocytes # (Manual) 1.0 L (1.2-5.4) K/mm3 Monocytes # (Manual) 0.9 H (0.0-0.8) K/mm3 PT 12.1 L (12.2-14.9) Sec. INR 0.86 L (0.87-1.13) Heparin Anti-Xa Level (0.3-0.7) U.I./ml VBG pH (7.320-7.420) Chloride 94.6 L (98-107) mmol/L Carbon Dioxide 31 H D (22-30) mmol/L Creatinine 5.0 H D (0.8-1.5) mg/dL Troponin T 0.057 H (0.00-0.029) ng/mL NT-Pro-B Natriuret Pep 3437 H (0-900) pg/mL Albumin (3.9-5) g/dL 05/16/17 05/17/17 05/17/17 Range/Units 18:04 03:58 03:58 Hgb (11.8-15.2) gm/dl Hct (35.5-45.6) % MCV (84-94) fl RDW (13.2-15.2) % Harmon % (Auto) (0.0-7.3) % Seg Neuts % (Manual) (40.0-70.0) % Monocytes % (Manual) (0.0-7.3) % Lymphocytes # (Manual) (1.2-5.4) K/mm3 Monocytes # (Manual) (0.0-0.8) K/mm3 PT (12.2-14.9) Sec. INR (0.87-1.13) Heparin Anti-Xa Level 0.17 L (0.3-0.7) U.I./ml VBG pH 7.563 H (7.320-7.420) Chloride 95.1 L (98-107) mmol/L Carbon Dioxide 31 H (22-30) mmol/L Creatinine 5.9 H (0.8-1.5) mg/dL Troponin T (0.00-0.029) ng/mL NT-Pro-B Natriuret Pep (0-900) pg/mL Albumin 3.7 L (3.9-5) g/dL
--- NOTE | 2017-05-17 12:37 | Consultation ---
HISTORY OF PRESENT ILLNESS: The patient is a 62-year-old male with many medical problems including history of coronary artery disease and congestive heart failure. He developed a sudden onset of precordial chest pain that was sharp, pleuritic and radiated to the back. It was associated with shortness of breath during dialysis. Hypoxia was noted. He did not describe any fever, wheezing, sputum production, significant palpitations or significant ankle edema. He had a thallium scan not long ago that was negative. He had coronary stents a few years ago and does not see Cardiology on a regular basis. There is a history of strokes, but no history of arrhythmias. He describes dyspnea on exertion with mild activity, he is not very active. There has been no angina. He did not describe any peripheral vascular disease or COPD despite having smoked in the remote past. Social remote history of alcohol use and he states that the liver was noted to be enlarged. He describes blood pressure drops during dialysis. He eats fairly healthy. PAST HISTORY: Operations: AV graft to the left arm. SOCIAL HISTORY: Smoking: Prior smoker. Alcohol: Prior heavy use years ago. FAMILY HISTORY: Noncontributory. MEDICATIONS: See the nurse's list. REVIEW OF SYSTEMS: He has a history of 2 previous strokes, liver enlargement, but no cirrhosis. He has a history of seizures. He did not describe any other significant complaints or medical problems at this time. PHYSICAL EXAMINATION: GENERAL: Well-developed, well-nourished, in no acute distress. HEENT: Alert, oriented and cooperative, mental status normal. I's and O's, and throat are unremarkable. NECK: Reveals mild JVD. There are no bruits. Neck is supple, no masses. LUNGS: Diminished breath sounds with a few crackles at the left base. No labored respirations. No rhonchi. CARDIOVASCULAR: Regular rhythm, S4 gallop. Grade 3 systolic murmur with a soft diastolic murmur over the aortic valve. ABDOMEN: Soft, nontender, no masses. EXTREMITIES: No cyanosis, clubbing, or edema. Peripheral pulses are intact, but diminished. NEUROLOGIC: Symmetrical. SKIN: Clear. IMPRESSION: 1. Prolonged chest pain with atypical qualities that have improved and there is no sign of an acute coronary syndrome. There is minimal elevation of the troponin, which is probably secondary to chronic kidney disease. 2. Shortness of breath and hypoxia: etiology unclear, consider bronchospasm given the fact that the chest x-ray and CT of the chest showed no evidence of pulmonary embolus, pneumonia, or congestive heart failure. 3. Known coronary artery disease with a negative stress test. 4. Murmur suggestive of aortic insufficiency. 5. End-stage renal disease. 6. History of stroke. 7. History of seizures. 8. Hypertension. 9. Diabetes. 10. Suspect hyperlipidemia. 11. History of congestive heart failure: ejection fraction unknown. PLAN: Treat for coronary artery disease and history of congestive heart failure, echocardiography. Thank you for this consultation. JOB# [id number] MARK/MARC
[2017-05-17 14:28] LABS: Hepatitis A Antibody IgM Non-Reactive (NonReactive); Hepatitis B Core IgM Non-Reactive (NonReactive); Hepatitis B Surface Antigen Non-Reactive (Negative); Hepatitis C Virus Antibody Non-Reactive (NonReactive)
--- NOTE | 2017-05-17 14:52 | Consultation ---
History of Present Illness Consult date: 05/17/17 Requesting physician: ZANDER HARDY Reason for consult: other (Atypical Chest pain; Acute Hypoxemic Respiratory failure) History of present illness: PULMONARY/CCM CONSULT NOTE (Full dictation # [id number]) Please see dictated notes for full details Past History Past Medical History: CAD, diabetes, ESRD, heart failure, hypertension, seizures , stroke Past Surgical History: Other (Cardiac stent placement) Social history: , lives with family. denies: smoking, alcohol abuse, prescription drug abuse Family history: diabetes, hypertension Medications and Allergies Allergies Allergy/AdvReac Type Severity Reaction Status Date / Time No Known Allergies Allergy Verified 02/28/17 00:21 Home Medications Medication Instructions Recorded Confirmed Last Taken Type Aspirin [Aspirin BABY CHEW TAB] 81 mg PO DAILY 03/02/14 05/12/17 1 Day Ago History ~05/11/17 amLODIPine [Norvasc] 10 mg PO DAILY 03/02/14 05/12/17 1 Day Ago History ~05/11/17 hydrOXYzine HCL [Atarax] 25 mg PO Q6H PRN #20 tablet 12/31/16 05/12/17 1 Day Ago Rx ~05/11/17 Omeprazole Magnesium [PriLOSEC Otc] 20 mg PO QDAY #14 tablet. 01/10/17 1 Day Ago Rx ~05/11/17 Sevelamer Carbonate [Renvela] 800 mg PO TIDWM #270 tablet 03/04/17 05/12/17 1 Day Ago Rx ~05/11/17 Levofloxacin [Levaquin TAB] 500 mg PO Q48HR #3 tablet 05/13/17 Unknown Rx Active Meds: Active Medications Albuterol (Proventil) 2.5 mg IH Q3HRT PRN PRN Reason: Shortness Of Breath Aspirin (Baby Aspirin) 81 mg PO DAILY GORDO Last Admin: 05/17/17 10:22 Dose: 81 mg Hydroxyzine HCl (Atarax) 25 mg PO Q6H PRN PRN Reason: Itching Heparin Sodium/Sodium Chloride (Heparin/ 0.45% Nacl-25,000 Unit/500 Ml) 25,000 unit in 500 mls @ 20 mls/hr IV TITRATE GORDO; Protocol Last Titration: 05/17/17 04:39 Dose: 1,100 units/hr, 22 mls/hr Sodium Chloride (Nacl 0.9%) 100 mls @ 999 mls/hr IV JEANINE PRN PRN Reason: Hypotension Sodium Chloride (Nacl 0.9%) 100 mls @ 999 mls/hr IV JEANINE PRN PRN Reason: Hypotension Lorazepam (Ativan) 1 mg IV Q4H PRN PRN Reason: Agitation Pantoprazole Sodium (Protonix) 20 mg PO QDAY [facility] Last Admin: 05/17/17 10:22 Dose: 20 mg Pneumococcal Polyvalent Vaccine (Pneumovax 23) 0.5 ml IM .ONCE ONE Stop: 05/18/17 10:01 Sevelamer Carbonate (Renvela) 800 mg PO TIDWM [facility] Last Admin: 05/17/17 09:51 Dose: Not Given Sodium Chloride (Sodium Chloride Flush Syringe 10 Ml) 10 ml IV BID [facility] Last Admin: 05/17/17 10:23 Dose: 10 ml Sodium Chloride (Sodium Chloride Flush Syringe 10 Ml) 10 ml IV PRN PRN PRN Reason: LINE FLUSH Physical Examination Vital signs: Vital Signs Temp Pulse Resp BP Pulse Ox 98.1 F 89 16 114/64 90 05/16/17 17:33 05/16/17 17:33 05/16/17 17:33 05/16/17 17:33 05/16/17 17:33 Results - Laboratory Findings CBC and BMP: 05/16/17 18:04 05/17/17 03:58 PT/INR, D-dimer PT 12.1 Sec. (12.2-14.9) L 05/16/17 18:04 INR 0.86 (0.87-1.13) L 05/16/17 18:04 Abnormal lab findings: Abnormal Labs 05/16/17 05/16/17 05/16/17 18:04 18:04 18:04 Hgb 11.6 L Hct 35.3 L MCV 97 H RDW 16.3 H Cameron % (Auto) 13.9 H Seg Neuts % (Manual) 73.0 H Monocytes % (Manual) 12.0 H Lymphocytes # (Manual) 1.0 L Monocytes # (Manual) 0.9 H PT 12.1 L INR 0.86 L Heparin Anti-Xa Level VBG pH Chloride 94.6 L Carbon Dioxide 31 H D Creatinine 5.0 H D Troponin T 0.057 H NT-Pro-B Natriuret Pep 3437 H Albumin 05/16/17 05/17/17 05/17/17 18:04 03:58 03:58 Hgb Hct MCV RDW Cameron % (Auto) Seg Neuts % (Manual) Monocytes % (Manual) Lymphocytes # (Manual) Monocytes # (Manual) PT INR Heparin Anti-Xa Level 0.17 L VBG pH 7.563 H Chloride 95.1 L Carbon Dioxide 31 H Creatinine 5.9 H Troponin T NT-Pro-B Natriuret Pep Albumin 3.7 L
[2017-05-17] MEDS: ATARAX PO PRN (18:53)
[2017-05-17] MEDS ORDERED: NACL 0.9 (PRIMING MACHINE ONLY DIALYSIS) MC ONE (20:32)
[2017-05-17 21:05] LABS: Chol/HDL Ratio 1.88 %
[2017-05-18] MEDS: HEPARIN/ 0.45% NACL-25,000 UNIT/500 ML 25,000 UNIT/500 ML BAG IV SCH ×2 (00:44→19:11)
[2017-05-18] MEDS ORDERED: HEPARIN 10,000 UNITS/10 ML IV ONE ×2 (01:37→12:58)
[2017-05-18] MEDS: RENVELA PO SCH ×3 (02:00→17:25)
[2017-05-18] MEDS ORDERED: PNEUMOVAX 23 IM ONE (10:00)
[2017-05-18 11:34] LABS: Hematocrit 32.4 % (35.5-45.6); Hemoglobin 10.7 gm/dl (11.8-15.2)
--- NOTE | 2017-05-18 12:49 | Consultation ---
PULMONARY CRITICAL CARE CONSULTATION CONSULTING PHYSICIAN: Dr. Burt. REASON FOR CONSULTATION: Acute hypoxemic respiratory failure. CHIEF COMPLAINT AND HISTORY OF PRESENT ILLNESS: The patient is a 62-year-old male with past medical history significant amongst other things for a diagnosis of coronary artery disease, but also end-stage renal disease, who came into the Emergency Room stat complaining of shortness of breath as well as chest pain. He states that he got sick during dialysis in the outpatient setting. He developed some chest pain. He had some nausea. He denied any vomiting. He blames significant worsening of his symptoms during dialysis. He denied any gross or streaky hemoptysis. Denied any expectoration. He described the pain as 10/10, substernal, nonradiating, pleuritic in nature. He was evaluated in the Emergency Room. Amongst other things, he was hypoxemic 82% on room air. He was hypotensive, systolic blood pressures were in the 90s. He was started on a heparin drip for acute coronary syndrome and ICU admission was requested. When I stopped by to see him, he was just completing dialysis. He was feeling much better. He was down to about 2 liters nasal cannula. He stated that this has happened to him a couple of times in the outpatient dialysis setting. When asked about history of tobacco use or abuse, he denies any tobacco use or abuse history whatsoever. This really is as much of the history of presentation as I have. PAST MEDICAL HISTORY: Coronary artery disease, hypertension, cerebrovascular accident, congestive heart failure, diabetes, end-stage renal disease, on dialysis Friday, Friday, and Friday. History of seizures. PAST SURGICAL HISTORY: He has had cardiac stent placements. MEDICATIONS: Medications he was on at the time I stopped by to see were reviewed. Pertinent medications included the following: Aspirin 81 mg p.o. daily, was on IV insulin drip, p.r.n. Atarax, Protonix 20 mg p.o. daily, Renvela 800 mg p.o. t.i.d. with meals. ALLERGIES: No known drug allergies. DIET: Well-built gentleman, short statured. Denies significant weight loss or gain preceding few weeks to months. FAMILY AND SOCIAL HISTORY: Lives in the community. Denies alcohol, tobacco, or illicit drug use or abuse. FAMILY HISTORY: Positive for diabetes and hypertension. REVIEW OF SYSTEMS: A complete 13-system review of systems was obtained and amongst other things, he denied any loss of consciousness. He denied gross hematochezia or melena. Denied gross hematuria or dysuria. He denied any new-onset seizures. He denied any polydipsia, polyuria. Again, complete 13-system review of systems was obtained. Pertinent positives and/or negatives as in body of the history above, otherwise they are noncontributory. PHYSICAL EXAMINATION: VITAL SIGNS: At presentation in the Emergency Room, he was afebrile, temperature 98.1, pulse was 89, respiratory rate was 16, blood pressure was 114/64, oxygen sats as low as 80% on room air, blood pressure dipped as low as 93/58, it is about the lowest that I can see. GENERAL: Well-built elderly looking male. Normocephalic, atraumatic talking to me in full sentences in mild respiratory distress at worse. HEAD, EYES, EARS, NOSE, AND THROAT: He was anicteric. No conjunctival erythema. Oropharynx is Mallampati 3. Oropharynx was moist. No gross jugular venous distention. No palpable lymph nodes in the supraclavicular or submandibular lymph node chains. No thyromegaly. LUNGS: Auscultation of both lung archibald, slightly diminished bibasilar air entry, otherwise clear. CARDIOVASCULAR: Heart sounds 1 and 2 were heard. They were regular in rate and rhythm at the time of my evaluation. He did have soft systolic ejection murmur. No rubs. ABDOMEN: Soft, full. Bowel sounds are positive, nontender. No palpable hepatosplenomegaly. EXTREMITIES: Without overt digital clubbing or cyanosis. No pedal edema. Dorsalis pedis pulses are palpable bilaterally. NEUROLOGIC: Pupils are unequal, 4 mm on the right and 3 mm on the left, sluggishly reactive on the right, very sluggishly reactive on the left. Extraocular muscle movements appeared intact otherwise. He moved all 4 extremities spontaneously. Skin was of poor turgor with stasis dermatitis rash in the lower extremities; however, no cellulitis, no decubitus ulcers. Again, he moved all 4 extremities spontaneously. LABORATORY DATA: From my review are as follows: White cell count 7100, hemoglobin 11.6, hematocrit 35.3, platelet count 184. No band forms on the manual differential. INR was 0.86. Venous blood gas showed a pH of 7.56. Serum sodium was 140, potassium 4.3, chloride 95, bicarbonate 31, BUN 15, creatinine 5.0. Glucose was 87. Lactic acid level was within normal limits. Liver function tests within normal limits. CRP 0.2. BNP is 3437. Hepatitis screen was nonreactive. Blood cultures no growth to date. A chest x-ray was done and was unremarkable chest x-ray, no focal infiltrates. CT scan was reviewed. Apparently it is not the best contrast phase timing, but no large central emboli or filling defects. He had some areas of atelectasis in the right lower lobe. No gross pneumothorax, no gross bony fracture. The lung windows suggest mild interstitial edema, particularly in the upper lobes. EKG was reviewed. It was a sinus rhythm at 92 beats per minute, nonspecific ST-T wave changes, possible prior anterolateral infarct with Q-waves. No ST elevation. ASSESSMENT: 1. Atypical chest pain. 2. Elevated serum troponin. 3. Acute hypoxemic respiratory failure. 4. End-stage renal disease, on dialysis. 5. Anemia, macrocytic. 6. Abnormal CT scan with areas of left lower lobe atelectasis. 7. History of congestive heart failure. 8. History of diabetes. 9. Hypertension. 10. History of seizures. 11. History of cerebrovascular accident. PLAN: Continue IV heparin therapy for an acute coronary syndrome and de-escalate/stop per Cardiology recommendations. The patient is appropriately also on GI prophylaxis. Continue hemodialysis with ultrafiltration per Nephrology prescription. I have asked him to discuss next time he is in the outpatient setting to make sure that they are not setting too high of an ultrafiltration goal but also to let them know that the doctor wondered if perhaps it had to do with the flow. Oxygen is being weaned. Suspect an element of hypoxemia was due to pulmonary edema, but also certainly an element due to the atelectasis that was noted. He is now on 2 liters 97% and he will be weaned off. Incentive spirometer will be offered. Flu and pneumonia vaccination will be addressed per protocol. He is doing much better. He will be transferred out of the Intensive Care Unit. Thank you very much for the consult, Dr. Burt. We will follow along. We will make further recommendations as picture progresses/becomes clearer. [facility]# [id number] BRANDAN/MARC MENDES
[2017-05-18] MEDS: BABY ASPIRIN PO SCH (13:08)
[2017-05-18] MEDS: SODIUM CHLORIDE FLUSH SYRINGE 10 ML IV SCH ×2 (13:08→21:53)
[2017-05-18] MEDS: PROTONIX PO SCH (13:08)
--- NOTE | 2017-05-18 15:47 | Progress Note ---
Assessment and Plan - Patient Problems (1) Unstable angina Current Visit: Yes Status: Suspected Plan to address problem: Cardiology has been consulted. CT angiogram showed no pulmonary embolism. Follow up 2-D echo. Continue management by paralegal internship (2) Chronic systolic (congestive) heart failure Current Visit: Yes Status: Acute Plan to address problem: Fluid removal on dialysis. Consider beta carrillo if blood pressure will tolerate (3) Hypertensive chronic kidney disease with stage 5 chronic kidney disease or end stage renal disease Current Visit: No Status: Acute Plan to address problem: Follow blood pressure on current medications (4) Type 2 diabetes mellitus with diabetic nephropathy Current Visit: No Status: Acute Plan to address problem: Blood sugar management by primary attending (5) ESRD (end stage renal disease) Current Visit: Yes Status: Acute Plan to address problem: Hemodialysis started this morning. Resume regular schedule of dialysis on Friday, Friday and Friday next week. (6) Anemia in chronic kidney disease Current Visit: No Status: Acute Plan to address problem: Continue Erythropoetin on dialysis Subjective Date of service: 05/18/17 Principal diagnosis: end-stage renal disease with chest pain Interval history: Patient seen lying in bed. Feels better today. No chest pain now. No shortness of breath. Objective - Exam Narrative Exam: Middle-aged -[place] male lying in bed in no acute distress HEENT: NCAT, pink oral mucous membrane Neck: Supple, no venous distention CVS: S1S2 RRR with no murmur, rub or gallop Chest: Clear anteriorly Abdomen: Protuberant, soft, nontender, no organomegaly, bowel sounds are present Extremities: No edema, no clubbing Neuro: Awake, alert no focal deficits - Vital Signs Vital signs: Vital Signs - 12hr 05/18/17 05/18/17 05/18/17 05:09 08:09 08:38 Temperature 98.4 F 97.8 F Pulse Rate 88 79 Respiratory 20 20 Rate Blood Pressure 124/81 Blood Pressure 122/73 [Right] O2 Sat by Pulse 96 96 96 Oximetry 05/18/17 05/18/17 11:47 14:00 Temperature 97.9 F Pulse Rate 84 78 Respiratory 20 Rate Blood Pressure 116/65 Blood Pressure [Right] O2 Sat by Pulse 97 Oximetry - Lab 05/18/17 10:50 05/17/17 03:58 Most recent lab results Calcium 9.1 mg/dL (8.4-10.2) 05/17/17 03:58
--- NOTE | 2017-05-18 18:39 | Progress Note ---
Assessment and Plan Atypical chest pain. Elevated serum troponin. Acute hypoxemic respiratory failure. End-stage renal disease, on dialysis. Anemia, macrocytic. Abnormal CT scan with areas of left lower lobe atelectasis. History of congestive heart failure. History of diabetes. Hypertension. History of seizures. History of cerebrovascular accident - continue HD/UF for toxin and volume clearance - ACS w/up negative so far - wean off oxygen therapy for sats > 90% - continue GI & VTE prophylaxis - incentive spirometry re: atelectasis - continue other care per attending/other consultants .....re-evaluate in am & prn Subjective Date of service: 05/18/17 Principal diagnosis: Atypical Chest Pain; ESRD on Dialysis; HTN Interval history: Patient seen today for: Atypical Chest Pain; ESRD on Dialysis; HTN Seen and examined at bedside; 24-hour events reviewed; nursing and respiratory care staff consulted; no adverse overnight events reported to me;resting in bed ; feels better overall; still with intermittent chest pain; no N/V/F/C; no syncope; no cough or expectoration Objective Vital Signs - 12hr 05/18/17 05/18/17 05/18/17 08:09 08:38 11:47 Temperature 97.8 F 97.9 F Pulse Rate 79 84 Respiratory 20 20 Rate Blood Pressure 116/65 Blood Pressure 122/73 [Right] O2 Sat by Pulse 96 96 97 Oximetry 05/18/17 05/18/17 14:00 17:54 Temperature 97.6 F Pulse Rate 78 80 Respiratory 18 Rate Blood Pressure Blood Pressure 131/75 [Right] O2 Sat by Pulse 98 Oximetry Constitutional: no acute distress, alert Eyes: non-icteric ENT: oropharynx moist, other (no thyromegaly) Neck: supple, no lymphadenopathy, no JVD Ascultation: Bilateral: diminished breath sounds, rhonchi (posterior bases) CBC and BMP: 05/18/17 10:50 05/17/17 03:58 ABG, PT/INR, D-dimer: PT/INR, D-dimer PT 12.1 Sec. (12.2-14.9) L 05/16/17 18:04 INR 0.86 (0.87-1.13) L 05/16/17 18:04 Abnormal lab findings: Abnormal Labs 05/16/17 05/16/17 05/16/17 18:04 18:04 18:04 Hgb 11.6 L Hct 35.3 L MCV 97 H RDW 16.3 H Amelia % (Auto) 13.9 H Seg Neuts % (Manual) 73.0 H Monocytes % (Manual) 12.0 H Lymphocytes # (Manual) 1.0 L Monocytes # (Manual) 0.9 H PT 12.1 L INR 0.86 L Heparin Anti-Xa Level VBG pH Chloride 94.6 L Carbon Dioxide 31 H D Creatinine 5.0 H D Troponin T 0.057 H NT-Pro-B Natriuret Pep 3437 H Albumin HDL Cholesterol 05/16/17 05/17/17 05/17/17 18:04 03:58 03:58 Hgb Hct MCV RDW Amelia % (Auto) Seg Neuts % (Manual) Monocytes % (Manual) Lymphocytes # (Manual) Monocytes # (Manual) PT INR Heparin Anti-Xa Level 0.17 L VBG pH 7.563 H Chloride 95.1 L Carbon Dioxide 31 H Creatinine 5.9 H Troponin T NT-Pro-B Natriuret Pep Albumin 3.7 L HDL Cholesterol 05/17/17 05/17/17 05/17/17 14:50 14:50 19:23 Hgb Hct MCV RDW Amelia % (Auto) Seg Neuts % (Manual) Monocytes % (Manual) Lymphocytes # (Manual) Monocytes # (Manual) PT INR Heparin Anti-Xa Level 0.12 L VBG pH Chloride Carbon Dioxide Creatinine Troponin T 0.069 H D 0.062 H NT-Pro-B Natriuret Pep Albumin HDL Cholesterol 76 H 05/18/17 05/18/17 05/18/17 00:15 10:50 10:50 Hgb 10.7 L Hct 32.4 L MCV RDW Amelia % (Auto) Seg Neuts % (Manual) Monocytes % (Manual) Lymphocytes # (Manual) Monocytes # (Manual) PT INR Heparin Anti-Xa Level VBG pH Chloride Carbon Dioxide Creatinine Troponin T 0.061 H 0.059 H NT-Pro-B Natriuret Pep Albumin HDL Cholesterol 05/18/17 05/18/17 10:50 Unknown Hgb Hct MCV RDW Amelia % (Auto) Seg Neuts % (Manual) Monocytes % (Manual) Lymphocytes # (Manual) Monocytes # (Manual) PT INR Heparin Anti-Xa Level < 0.10 L < 0.10 L VBG pH Chloride Carbon Dioxide Creatinine Troponin T NT-Pro-B Natriuret Pep Albumin HDL Cholesterol
[2017-05-19] MEDS: PROTONIX PO SCH (09:32)
[2017-05-19] MEDS: RENVELA PO SCH ×2 (09:33→16:07)
[2017-05-19] MEDS: BABY ASPIRIN PO SCH (09:33)
[2017-05-19] MEDS: SODIUM CHLORIDE FLUSH SYRINGE 10 ML IV SCH (09:35)
[2017-05-19] MEDS ORDERED: NACL 0.9% 100 ML IV PRN (10:00)
--- NOTE | 2017-05-19 10:23 | Progress Note ---
Assessment and Plan /Atypical chest pain stop Heparin drip, telemetry monitoring, negative CTA chest, had negative stress test on 05/14/17 consulted cardiology, recommended repeat 2d echo / CHF (congestive heart failure) with diastolic dysfunction, preserved ef on recent stress test Strict I/O, monitor uop q shift, follow cardiology recommendation, supplemental oxygen required on admission, /Acute hypoxic Respiratory failure likely from bronchospasm? Now resolved with Supplemental oxygen, cont nebulizer therapy, pulse oximetry, NIPPV as clinically indicated. / Dialysis disequilibrium syndrome Nephrology consulted in ED, monitor BMP, pain control, supportive care. /ESRD (end stage renal disease) Nephrology consulted for dialysis, monitor uop q shift, strict I/O / h/O CAD - cont aspirin, statin , BB /DVT prophylaxis heparin Brief history: 44-year-old old male with a history of end stage renal disease, hypertension who was just recently discharged from this hospital after treatment for pneumonia went to dialysis outpt and c/o chest pain during HD. The staff at dialysis called EMS and patient's O2 sat was 82% in room air. He was started on oxygen and brought to the hospital. Blood pressure was low at 85/47 mmHg. Radiological test: CTA chest negative for PE, aortic dissection CXR no infiltrates Hospitalist Physical exam: GENERAL: elderly male lying on bed appeared to be in no discomfort. HEENT: Normocephalic. Atraumatic. No conjunctival congestion or icterus. Patient has moist mucous membranes. NECK: Supple. Trachea midline. CHEST/LUNGS: Clear to auscultated bilaterally, breathing nonlabored. No wheezes crackles or rhonchi. HEART/CARDIOVASCULAR: Regular in rate and rhythm. S1 and S2 positive. ABDOMEN: Abdomen is soft, nontender. Patient has normal bowel sounds. SKIN: There is no rash. Warm and dry. NEURO: No focal motor deficit. Follows command. MUSCULOSKELETAL: No joint effusion or tenderness. EXTRIMITY: No edema, no cyanosis or clubbing. PSYCH: Cooperative. Subjective Date of service: 05/18/17 Principal diagnosis: Atypical Chest Pain; ESRD on Dialysis; HTN Interval history: Patient seen and examined. Medical records and medication list reviewed. No acute event overnight noted by the RN. Patient denies any chest pain now or difficulty breathing. Discussed plan of care at bedside with patient and his . Objective - Constitutional Vitals: Vital Signs - 12hr 05/19/17 05/19/17 05/19/17 00:28 04:21 07:13 Temperature 97.9 F 98.2 F 97.8 F Pulse Rate 83 80 80 Respiratory 18 16 18 Rate Blood Pressure 137/77 123/79 138/77 O2 Sat by Pulse 95 97 99 Oximetry - Labs CBC & Chem 7: 05/18/17 10:50 05/17/17 03:58 Labs: Abnormal lab results 05/18/17 05/18/17 05/18/17 Range/Units 10:50 10:50 10:50 Hgb 10.7 L (11.8-15.2) gm/dl Hct 32.4 L (35.5-45.6) % Heparin Anti-Xa Level < 0.10 L (0.3-0.7) U.I./ml Troponin T 0.059 H (0.00-0.029) ng/mL 05/19/17 Range/Units 04:48 Hgb (11.8-15.2) gm/dl Hct (35.5-45.6) % Heparin Anti-Xa Level 0.16 L (0.3-0.7) U.I./ml Troponin T (0.00-0.029) ng/mL
--- NOTE | 2017-05-19 10:34 | Progress Note ---
Assessment and Plan - Patient Problems (1) Unstable angina Current Visit: Yes Status: Suspected Plan to address problem: Cardiology has been consulted. CT angiogram showed no pulmonary embolism. Follow up 2-D echo. Continue management by director instrumentation (2) Chronic systolic (congestive) heart failure Current Visit: Yes Status: Acute Plan to address problem: Fluid removal on dialysis. Consider beta carrillo if blood pressure will tolerate (3) Hypertensive chronic kidney disease with stage 5 chronic kidney disease or end stage renal disease Current Visit: No Status: Acute Plan to address problem: Follow blood pressure on current medications (4) Type 2 diabetes mellitus with diabetic nephropathy Current Visit: No Status: Acute Plan to address problem: Blood sugar management by primary attending (5) ESRD (end stage renal disease) Current Visit: Yes Status: Acute Plan to address problem: Hemodialysis this morning. Resume regular schedule of dialysis on Friday, Friday and Friday this week. (6) Anemia in chronic kidney disease Current Visit: No Status: Acute Plan to address problem: Continue Erythropoetin on dialysis Subjective Date of service: 05/19/17 Principal diagnosis: Atypical Chest Pain; ESRD on Dialysis; HTN Interval history: Patient seen lying in bed. Feels better today. No chest pain. No shortness of breath. Objective - Exam Narrative Exam: Middle-aged -[place] male lying in bed in no acute distress HEENT: NCAT, pink oral mucous membrane Neck: Supple, no venous distention CVS: S1S2 RRR with no murmur, rub or gallop Chest: Clear anteriorly Abdomen: Protuberant, soft, nontender, no organomegaly, bowel sounds are present Extremities: No edema, no clubbing Neuro: Awake, alert no focal deficits - Vital Signs Vital signs: Vital Signs - 12hr 05/19/17 05/19/17 05/19/17 00:28 04:21 07:13 Temperature 97.9 F 98.2 F 97.8 F Pulse Rate 83 80 80 Respiratory 18 16 18 Rate Blood Pressure 137/77 123/79 138/77 O2 Sat by Pulse 95 97 99 Oximetry - Lab 05/18/17 10:50 05/17/17 03:58 Most recent lab results Calcium 9.1 mg/dL (8.4-10.2) 05/17/17 03:58
--- NOTE | 2017-05-19 11:23 | Progress Note ---
Assessment and Plan - Patient Problems (1) Chest pain Current Visit: No Status: Acute Plan to address problem: Chest pain, atypical normal MPI 1 week ago. mild to moderate aortic stenosis, normal LVEF on an echo 12/2016. No further cardiac workup indicated. Conservative cardiac management. (2) ESRD (end stage renal disease) Current Visit: Yes Status: Acute Subjective Date of service: 05/19/17 Principal diagnosis: Atypical Chest Pain; ESRD on Dialysis; HTN Interval history: Patient denies chest pain and shortness of breath. Objective Vital Signs Temp Pulse Pulse Resp BP BP Pulse Ox 05/19/17 10:00 88 88 99 05/19/17 07:13 97.8 F 80 18 138/77 99 05/19/17 04:21 98.2 F 80 16 123/79 97 05/19/17 00:28 97.9 F 83 18 137/77 95 05/18/17 22:00 89 05/18/17 21:45 99 05/18/17 20:36 82 98 05/18/17 20:35 98.1 F 81 18 137/74 98 05/18/17 17:54 97.6 F 80 18 131/75 98 05/18/17 14:00 78 05/18/17 11:47 97.9 F 84 20 116/65 97 - Physical Examination General: No Apparent Distress HEENT: Positive: PERRL Cardiac: Positive: Reg Rate and Rhythm Lungs: Positive: Decreased Breath Sounds - Labs and Meds CBC 05/18/17 Range/Units 10:50 Hgb 10.7 L (11.8-15.2) gm/dl Hct 32.4 L (35.5-45.6) % Plt Count 190 (140-440) K/mm3
[2017-05-19] MEDS ORDERED: PNEUMOVAX 23 IM ONE (12:00)
--- NOTE | 2017-05-19 14:10 | Progress Note ---
Assessment and Plan /Atypical chest pain stopped Heparin drip, cont telemetry monitoring, negative CTA chest, had negative stress test on 05/14/17 Patient has history of mild to moderate mitral stenosis based on previous echo consulted cardiology, recommended repeat 2d echo which is still pending / CHF (congestive heart failure) with diastolic dysfunction, preserved ef on recent stress test Strict I/O, monitor uop q shift, follow cardiology recommendation, supplemental oxygen required on admission, /Acute hypoxic Respiratory failure likely from bronchospasm? Now resolved with Supplemental oxygen, cont nebulizer therapy, pulse oximetry with vitals, NIPPV as clinically indicated. / Dialysis disequilibrium syndrome Nephrology consulted in ED, monitor BMP, supportive care. /ESRD (end stage renal disease) Nephrology consulted for dialysis / h/O CAD - cont aspirin, statin , BB if BP tolerates /DVT prophylaxis heparin Brief history: 44-year-old old male with a history of end stage renal disease, hypertension who was just recently discharged from this hospital after treatment for pneumonia went to dialysis outpt and c/o chest pain during HD. The staff at dialysis called EMS and patient's O2 sat was 82% in room air. He was started on oxygen and brought to the hospital. Blood pressure was low at 85/47 mmHg. Radiological test: CTA chest negative for PE, aortic dissection CXR no infiltrates Hospitalist Physical exam: GENERAL: elderly male lying on bed appeared to be in no discomfort. HEENT: Normocephalic. Atraumatic. No conjunctival congestion or icterus. Patient has moist mucous membranes. NECK: Supple. Trachea midline. CHEST/LUNGS: Clear to auscultated bilaterally, breathing nonlabored. No wheezes crackles or rhonchi. HEART/CARDIOVASCULAR: Regular in rate and rhythm. S1 and S2 positive. ABDOMEN: Abdomen is soft, nontender. Patient has normal bowel sounds. SKIN: There is no rash. Warm and dry. NEURO: No focal motor deficit. Follows command. MUSCULOSKELETAL: No joint effusion or tenderness. EXTRIMITY: No edema, no cyanosis or clubbing. PSYCH: Cooperative. Subjective Date of service: 05/19/17 Principal diagnosis: Atypical Chest Pain; ESRD on Dialysis; HTN Objective - Constitutional Vitals: Vital Signs - 12hr 05/19/17 05/19/17 05/19/17 04:21 07:13 10:00 Temperature 98.2 F 97.8 F Pulse Rate 80 80 88 Pulse Rate [ 88 From Monitor] Respiratory 16 18 Rate Blood Pressure 123/79 138/77 O2 Sat by Pulse 97 99 99 Oximetry 05/19/17 05/19/17 05/19/17 11:30 11:45 12:00 Temperature 98.2 F Pulse Rate 77 78 78 Pulse Rate [ From Monitor] Respiratory 18 Rate Blood Pressure 135/88 144/81 149/83 O2 Sat by Pulse Oximetry 05/19/17 05/19/17 05/19/17 12:15 12:30 12:45 Temperature Pulse Rate 77 75 76 Pulse Rate [ From Monitor] Respiratory Rate Blood Pressure 128/78 129/74 118/79 O2 Sat by Pulse Oximetry 05/19/17 05/19/17 05/19/17 13:00 13:15 13:30 Temperature Pulse Rate 78 79 78 Pulse Rate [ From Monitor] Respiratory Rate Blood Pressure 117/82 125/79 127/76 O2 Sat by Pulse Oximetry - Labs CBC & Chem 7: 05/18/17 10:50 05/17/17 03:58 Labs: Abnormal lab results 05/19/17 Range/Units 04:48 Heparin Anti-Xa Level 0.16 L (0.3-0.7) U.I./ml
--- NOTE | 2017-05-19 14:58 | Progress Note ---
Assessment and Plan Atypical chest pain. Elevated serum troponin. Acute hypoxemic respiratory failure. End-stage renal disease, on dialysis. Anemia, macrocytic. Abnormal CT scan with areas of left lower lobe atelectasis. History of congestive heart failure. History of diabetes. Hypertension. History of seizures. History of cerebrovascular accident - continue HD/UF for toxin and volume clearance - ACS w/up negative so far - wean off oxygen therapy for sats > 90% - continue GI & VTE prophylaxis - incentive spirometry re: atelectasis - continue other care per attending/other consultants .....re-evaluate in am & prn Subjective Date of service: 05/19/17 Principal diagnosis: Atypical Chest Pain; ESRD on Dialysis; HTN Interval history: Patient seen today for: Atypical Chest Pain; ESRD on Dialysis; HTN Seen and examined at bedside; 24-hour events reviewed; nursing and respiratory care staff consulted; no adverse overnight events reported to me;resting in bed; Objective Vital Signs - 12hr 05/19/17 05/19/17 05/19/17 04:21 07:13 10:00 Temperature 98.2 F 97.8 F Pulse Rate 80 80 88 Pulse Rate [ 88 From Monitor] Respiratory 16 18 Rate Blood Pressure 123/79 138/77 O2 Sat by Pulse 97 99 99 Oximetry 05/19/17 05/19/17 05/19/17 11:30 11:45 12:00 Temperature 98.2 F Pulse Rate 77 78 78 Pulse Rate [ From Monitor] Respiratory 18 Rate Blood Pressure 135/88 144/81 149/83 O2 Sat by Pulse Oximetry 05/19/17 05/19/17 05/19/17 12:15 12:30 12:45 Temperature Pulse Rate 77 75 76 Pulse Rate [ From Monitor] Respiratory Rate Blood Pressure 128/78 129/74 118/79 O2 Sat by Pulse Oximetry 05/19/17 05/19/17 05/19/17 13:00 13:15 13:30 Temperature Pulse Rate 78 79 78 Pulse Rate [ From Monitor] Respiratory Rate Blood Pressure 117/82 125/79 127/76 O2 Sat by Pulse Oximetry 05/19/17 05/19/17 05/19/17 13:45 14:00 14:15 Temperature Pulse Rate 80 76 74 Pulse Rate [ From Monitor] Respiratory Rate Blood Pressure 128/88 120/79 122/78 O2 Sat by Pulse Oximetry 05/19/17 14:30 Temperature Pulse Rate 72 Pulse Rate [ From Monitor] Respiratory Rate Blood Pressure 124/76 O2 Sat by Pulse Oximetry Constitutional: no acute distress, alert Eyes: non-icteric ENT: oropharynx moist, other (no thyromegaly) Neck: supple, no lymphadenopathy, no JVD Ascultation: Bilateral: diminished breath sounds, rhonchi (posterior bases) CBC and BMP: 05/18/17 10:50 05/17/17 03:58 ABG, PT/INR, D-dimer: PT/INR, D-dimer PT 12.1 Sec. (12.2-14.9) L 05/16/17 18:04 INR 0.86 (0.87-1.13) L 05/16/17 18:04 Abnormal lab findings: Abnormal Labs 05/16/17 05/16/17 05/16/17 18:04 18:04 18:04 Hgb 11.6 L Hct 35.3 L MCV 97 H RDW 16.3 H Wright % (Auto) 13.9 H Seg Neuts % (Manual) 73.0 H Monocytes % (Manual) 12.0 H Lymphocytes # (Manual) 1.0 L Monocytes # (Manual) 0.9 H PT 12.1 L INR 0.86 L Heparin Anti-Xa Level VBG pH Chloride 94.6 L Carbon Dioxide 31 H D Creatinine 5.0 H D Troponin T 0.057 H NT-Pro-B Natriuret Pep 3437 H Albumin HDL Cholesterol 05/16/17 05/17/17 05/17/17 18:04 03:58 03:58 Hgb Hct MCV RDW Wright % (Auto) Seg Neuts % (Manual) Monocytes % (Manual) Lymphocytes # (Manual) Monocytes # (Manual) PT INR Heparin Anti-Xa Level 0.17 L VBG pH 7.563 H Chloride 95.1 L Carbon Dioxide 31 H Creatinine 5.9 H Troponin T NT-Pro-B Natriuret Pep Albumin 3.7 L HDL Cholesterol 05/17/17 05/17/17 05/17/17 14:50 14:50 19:23 Hgb Hct MCV RDW Wright % (Auto) Seg Neuts % (Manual) Monocytes % (Manual) Lymphocytes # (Manual) Monocytes # (Manual) PT INR Heparin Anti-Xa Level 0.12 L VBG pH Chloride Carbon Dioxide Creatinine Troponin T 0.069 H D 0.062 H NT-Pro-B Natriuret Pep Albumin HDL Cholesterol 76 H 05/18/17 05/18/17 05/18/17 00:15 10:50 10:50 Hgb 10.7 L Hct 32.4 L MCV RDW Wright % (Auto) Seg Neuts % (Manual) Monocytes % (Manual) Lymphocytes # (Manual) Monocytes # (Manual) PT INR Heparin Anti-Xa Level VBG pH Chloride Carbon Dioxide Creatinine Troponin T 0.061 H 0.059 H NT-Pro-B Natriuret Pep Albumin HDL Cholesterol 05/18/17 05/18/17 05/19/17 10:50 Unknown 04:48 Hgb Hct MCV RDW Wright % (Auto) Seg Neuts % (Manual) Monocytes % (Manual) Lymphocytes # (Manual) Monocytes # (Manual) PT INR Heparin Anti-Xa Level < 0.10 L < 0.10 L 0.16 L VBG pH Chloride Carbon Dioxide Creatinine Troponin T NT-Pro-B Natriuret Pep Albumin HDL Cholesterol
[2017-05-19 15:14] VITALS: BP 130/78
--- NOTE | 2017-05-19 15:37 | Discharge Summary ---
Providers - Providers Date of Admission: 05/16/17 20:18 Date of discharge: 05/19/17 Attending physician: ANA COTTON 05/16/17 20:10 Consult to Physician [CONS] Routine Comment: spoke with Dr. Cadena and he spoke with the rn Consulting Provider: SIOMARA CADENA Physician Instructions: Reason For Exam: respiratory failure, esrd, chf 05/16/17 20:12 Consult to Physician [CONS] Stat Comment: Dr. Christine Hdz (er dr) spoke with Dr. Aceves Consulting Provider: BONY ACEVES Physician Instructions: Reason For Exam: ESRD 05/16/17 20:34 Consult to Physician [CONS] Routine Comment: Consulting Provider: CLARITZA GRANADOS Physician Instructions: Reason For Exam: acs Primary care physician: TREY JOHNSON Hospitalization Condition: Stable Hospital course: Brief history: 44-year-old old male with a history of end stage renal disease, hypertension who was just recently discharged from this hospital after treatment for pneumonia went to dialysis outpt and c/o chest pain during HD. The staff at dialysis called EMS and patient's O2 sat was 82% in room air. He was started on oxygen and brought to the hospital. Blood pressure was low at 85/47 mmHg. Discharge diagnosis and management: /Atypical chest pain, likely musculoskeletal developed during HD treated as unstable angina initially with Heparin drip with cont telemetry monitoring, negative CTA chest, had negative stress test on 05/14/17 Patient has history of mild to moderate mitral stenosis based on previous echo consulted cardiology, recommended no further workup / CHF (congestive heart failure) with diastolic dysfunction, preserved ef on recent stress test patient was compensated, cont current meds /Hypotensive episode following HD - held BP meds /Acute hypoxic Respiratory failure likely from bronchospasm? Now resolved with Supplemental oxygen, Placed on nebulizer therapy, monitored pulse oximetry with vitals, no NIPPV required. / Dialysis disequilibrium syndrome Nephrology consulted in ED, monitored BMP, tolerated HD well without any complication /ESRD (end stage renal disease) Nephrology consulted for dialysis, no issue / h/O CAD - cont aspirin, statin , BB if BP tolerates /DVT prophylaxis heparin Radiological test: CTA chest negative for PE, aortic dissection CXR no infiltrates Hospitalist Physical exam: GENERAL: elderly male lying on bed appeared to be in no discomfort. HEENT: Normocephalic. Atraumatic. No conjunctival congestion or icterus. Patient has moist mucous membranes. NECK: Supple. Trachea midline. CHEST/LUNGS: Clear to auscultated bilaterally, breathing nonlabored. No wheezes crackles or rhonchi. HEART/CARDIOVASCULAR: Regular in rate and rhythm. S1 and S2 positive. ABDOMEN: Abdomen is soft, nontender. Patient has normal bowel sounds. SKIN: There is no rash. Warm and dry. NEURO: No focal motor deficit. Follows command. MUSCULOSKELETAL: No joint effusion or tenderness. EXTRIMITY: No edema, no cyanosis or clubbing. PSYCH: Cooperative. Disposition: DC-01 TO HOME OR SELFCARE Time spent for discharge: 32 minutes Core Measure Documentation - Palliative Care Palliative Care/ Comfort Measures: Not Applicable - Core Measures Any of the following diagnoses?: history only Exam - Constitutional Vitals: Temp Pulse Resp BP Pulse Ox 98.2 F 78 18 130/78 99 05/19/17 14:45 05/19/17 14:45 05/19/17 14:45 05/19/17 14:45 05/19/17 10:00 Plan Activity: advance as tolerated Weight Bearing Status: Non-Weight Bearing Follow up with: TREY JOHNSON MD [Primary Care Provider] - 7 Days Prescriptions: AtorvaSTATin [Lipitor] 40 mg PO QHS #30 tablet
[2017-05-19] MEDS: ATARAX PO PRN (16:07)
[2017-05-19] MEDS ORDERED: NACL 0.9 (PRIMING MACHINE ONLY DIALYSIS) MC ONE (17:43)
== END 2017-05-19 16:46 | disposition home or self-care (01) | DRG 189 ==
LOC: ED 17:29 → CC1 20:18 → 4A 05-17 17:13
PROVIDERS: ADMIT Internal Medicine; ATTEND Internal Medicine
PROC: 4A033R1 Measurement of Arterial Saturation, Peripheral, Percutaneous Approach (ICD-10-PCS; 2017-05-17)
PROC: 5A1D70Z Performance of Urinary Filtration, Intermittent, Less than 6 Hours Per Day (ICD-10-PCS; 2017-05-17)
PROC: 3E0234Z Introduction of Serum, Toxoid and Vaccine into Muscle, Percutaneous Approach (ICD-10-PCS; principal; 2017-05-19)
PROC: 5A1D70Z Performance of Urinary Filtration, Intermittent, Less than 6 Hours Per Day (ICD-10-PCS; 2017-05-19)
DX: J96.01 Acute respiratory failure with hypoxia (principal); N18.6 End stage renal disease; I13.2 Hypertensive heart and chronic kidney disease with heart failure and with stage 5 chronic kidney disease, or end stage renal disease; I25.110 Atherosclerotic heart disease of native coronary artery with unstable angina pectoris; I50.42 Chronic combined systolic (congestive) and diastolic (congestive) heart failure; R07.89 Other chest pain; E87.8 Other disorders of electrolyte and fluid balance, not elsewhere classified; E11.22 Type 2 diabetes mellitus with diabetic chronic kidney disease; E11.21 Type 2 diabetes mellitus with diabetic nephropathy; D63.1 Anemia in chronic kidney disease; Z79.82 Long term (current) use of aspirin; Z79.899 Other long term (current) drug therapy; Z86.73 Personal history of transient ischemic attack (TIA), and cerebral infarction without residual deficits; Z95.5 Presence of coronary angioplasty implant and graft; Z23 Encounter for immunization; Z82.49 Family history of ischemic heart disease and other diseases of the circulatory system; Z83.3 Family history of diabetes mellitus; I95.3 Hypotension of hemodialysis
CPT/HCPCS: 36415; 71045; 71275; 80053; 80061; 80074; 82140; 82550; 82553; 82805; 82962; 83880; 84484; 85007; 85014; 85018; 85025; 85049; 85520; 85610; 86140; 87040; 90732; 93005; 93010; 94760; 96365; 96375; 96376; J1644; J2060; J2270; J2405; J7030; J7040; Q9967

== ENCOUNTER 2018-02-13 12:31 | Inpatient (IN) | payer MEDICARE ==
[2018-02-13 13:26] LABS: Basophils % (Auto) 0.3 % (0.0-1.8); Eosinophils # (Auto) 0.4 K/mm3 (0.0-0.4); Eosinophils % (Auto) 7.4 % (0.0-4.3); Hematocrit 31.7 % (35.5-45.6); Hemoglobin 10.6 gm/dl (11.8-15.2); Lymphocytes # (Auto) 1.1 K/mm3 (1.2-5.4); Lymphocytes % (Auto) 19.3 % (13.4-35.0); Mean Corpuscular HGB Conc 33 % (32-34); Mean Corpuscular Volume 100 fl (84-94); Monocytes # (Auto) 0.7 K/mm3 (0.0-0.8); Monocytes % (Auto) 11.4 % (0.0-7.3); Platelet Count 179 K/mm3 (140-440); Red Blood Count 3.19 M/mm3 (3.65-5.03); Red Cell Distribution Width 15.4 % (13.2-15.2)
--- NOTE | 2018-02-13 13:31 | Emergency Department Report ---
ED General Adult HPI - General Chief complaint: Altered Mental Status Stated complaint: LETHARGIC Time Seen by Provider: 02/13/18 13:13 Source: EMS (ems notes not available at time of chart dictation), RN notes reviewed, old records reviewed Mode of arrival: Stretcher Limitations: Altered Mental Status - History of Present Illness Initial comments: This is a 62-year-old gentleman, history of end-stage renal disease, upper extremity fistula, on dialysis, typically follows with Dr. Rodriguez, Dr. Navarro, who is brought to the hospital by EMS for altered mental status. The patient is also, and cannot describe exacerbating or relieving factors. No family or history is available at this point time for collateral information. The patient follows commands, but is not able to further describe the nature of his symptoms, or temporal course of his symptoms. In the emergency room, patient found to be hyperkalemic, uremic, with evidence of fluid overload. He is treated medically for hyperkalemia, and the case is presented to nephrology lamination machine operator, Dr. Glaser, who agrees to arrange for urgent dialysis. The case is presented to the Hospital physician, Dr. Christine Oneill, who agreed to admit the patient for presumed uremic encephalopathy, as well as hyperkalemia. X-ray of the chest suggested congestive heart failure, fluid overload, possible pneumonia, therefore blood cultures were drawn, patient treated empirically with Levaquin. -: unknown Radiation: other Quality: other Consistency: other Improves with: other Worsens with: other Associated Symptoms: confusion, other - Related Data Home Medications Medication Instructions Recorded Confirmed Last Taken Hydralazine HCl 50 mg PO BID 07/03/17 02/13/18 Unknown ISOSORBIDE MONOnitrate [Imdur ER] 30 mg PO DAILY 07/03/17 02/13/18 Unknown Ondansetron [Zofran TAB] 4 mg PO Q8HR PRN 07/03/17 02/13/18 Unknown Rosuvastatin Calcium [Crestor] 20 mg PO QHS 07/03/17 02/13/18 Unknown Sevelamer Carbonate [Renvela] 2,400 mg PO TIDWM 07/03/17 02/13/18 Unknown amLODIPine [Norvasc] 10 mg PO DAILY 07/03/17 02/13/18 Unknown cloNIDine [Catapres] 0.2 mg PO BID 07/03/17 02/13/18 Unknown B Complex 11/Folic/C/Biot/Zinc 1 each PO DAILY 02/13/18 02/13/18 Unknown [Dialyvite with Zinc Tablet] Ergocalciferol (Vitamin D2) 50,000 unit PO QWEEK 02/13/18 02/13/18 Unknown [Drisdol] Furosemide [Lasix] 80 mg PO BID 02/13/18 02/13/18 Unknown HYDROcodone/ACETAMINOPHEN [[place] 1 each PO Q6H PRN 02/13/18 02/13/18 Unknown 5-325 Tablet] Metoprolol [Lopressor TAB] 12.5 mg PO BID 02/13/18 02/13/18 Unknown Omeprazole 20 mg PO QDAY 02/13/18 02/13/18 Unknown hydroCHLOROthiazide [Hctz] 12.5 mg PO QDAY 02/13/18 02/13/18 Unknown Previous Rx's Medication Instructions Recorded Last Taken Type Aspirin [Aspirin BABY CHEW TAB] 81 mg PO QDAY #30 tab.chew 07/05/17 Unknown Rx Allergies Allergy/AdvReac Type Severity Reaction Status Date / Time No Known Allergies Allergy Verified 02/28/17 00:21 ED Review of Systems ROS: Stated complaint: LETHARGIC Other details as noted in HPI Comment: Unobtainable due to pts medical conditions ED Past Medical Hx - Past Medical History Previous Medical History?: Yes Hx Hypertension: Yes Hx CVA: Yes (x2) Hx Heart Attack/AMI: No Hx Congestive Heart Failure: Yes Hx Diabetes: Yes Hx Deep Vein Thrombosis: No Hx Liver Disease: No Hx Renal Disease: Yes (end-stage renal disease) Hx Arthritis: No Hx Seizures: Yes Hx Asthma: No Hx COPD: No Additional medical history: Cardiac Stents, dialysis M-W- - Surgical History Past Surgical History?: Yes Hx Coronary Stent: Yes Hx Pacemaker: No Hx Internal Defibrillator: No Additional Surgical History: Cardiac stents 3 months ago 08/22? av graft to left arm - Social History Smoking Status: Never Smoker Substance Use Type: Other - Medications Home Medications: Home Medications Medication Instructions Recorded Confirmed Last Taken Type Hydralazine HCl 50 mg PO BID 07/03/17 02/13/18 Unknown History ISOSORBIDE MONOnitrate [Imdur ER] 30 mg PO DAILY 07/03/17 02/13/18 Unknown History Ondansetron [Zofran TAB] 4 mg PO Q8HR PRN 07/03/17 02/13/18 Unknown History Rosuvastatin Calcium [Crestor] 20 mg PO QHS 07/03/17 02/13/18 Unknown History Sevelamer Carbonate [Renvela] 2,400 mg PO TIDWM 07/03/17 02/13/18 Unknown His tory amLODIPine [Norvasc] 10 mg PO DAILY 07/03/17 02/13/18 Unknown History cloNIDine [Catapres] 0.2 mg PO BID 07/03/17 02/13/18 Unknown History Aspirin [Aspirin BABY CHEW TAB] 81 mg PO QDAY #30 tab.chew 07/05/17 02/13/18 Unknown Rx B Complex 11/Folic/C/Biot/Zinc 1 each PO DAILY 02/13/18 02/13/18 Unknown History [Dialyvite with Zinc Tablet] Ergocalciferol (Vitamin D2) 50,000 unit PO QWEEK 02/13/18 02/13/18 Unknown History [Drisdol] Furosemide [Lasix] 80 mg PO BID 02/13/18 02/13/18 Unknown History HYDROcodone/ACETAMINOPHEN [[place] 1 each PO Q6H PRN 02/13/18 02/13/18 Unknown History 5-325 Tablet] Metoprolol [Lopressor TAB] 12.5 mg PO BID 02/13/18 02/13/18 Unknown History Omeprazole 20 mg PO QDAY 02/13/18 02/13/18 Unknown History hydroCHLOROthiazide [Hctz] 12.5 mg PO QDAY 02/13/18 02/13/18 Unknown History ED Physical Exam - General Limitations: Altered Mental Status, Physical Limitation General appearance: lethargic - Head Head exam: Present: atraumatic, normocephalic - Eye Eye exam: Present: normal appearance, EOMI - ENT ENT exam: Present: normal exam, normal orophraynx, normal external ear exam - Neck Neck exam: Present: normal inspection, full ROM, other (jugular venous distention noted bilaterally). Absent: tenderness, meningismus - Respiratory Respiratory exam: Present: rales - Cardiovascular Cardiovascular Exam: Present: regular rate, normal rhythm, normal heart sounds - GI/Abdominal GI/Abdominal exam: Present: soft, distended. Absent: tenderness, guarding, rebound, rigid, pulsatile mass - Extremities Exam Extremities exam: Present: normal inspection, pedal edema, other (2+ pulses noted in the bilateral upper, lower extremities, left upper extremity fistula noted, no redness, pus or streaking is noted.). Absent: tenderness, calf tenderness - Back Exam Back exam: Present: normal inspection, full ROM. Absent: CVA tenderness (R), CVA tenderness (L), paraspinal tenderness - Neurological Exam Neurological exam: Present: altered, other (patient moving 4 extremities spontaneously and to command. There is no facial droop. Sensation appears to be intact to light touch. Detailed neurologic examination not possible secondary to altered mental status) - Psychiatric Psychiatric exam: Present: other (patient is minimally verbal) - Skin Skin exam: Present: dry ED Course Vital Signs 02/13/18 02/13/18 02/13/18 12:34 12:46 12:53 Temperature 97.9 F Pulse Rate 73 74 Pulse Rate [ Anterior Bilateral Throughout] Respiratory 11 L Rate Respiratory Rate [Anterior Bilateral Throughout] Blood Pressure 170/89 168/103 O2 Sat by Pulse 100 100 100 Oximetry 02/13/18 02/13/18 02/13/18 13:00 13:16 13:30 Temperature Pulse Rate 78 75 78 Pulse Rate [ Anterior Bilateral Throughout] Respiratory 10 L 12 14 Rate Respiratory Rate [Anterior Bilateral Throughout] Blood Pressure 170/89 170/89 170/89 O2 Sat by Pulse 97 100 96 Oximetry 02/13/18 02/13/18 02/13/18 13:46 14:00 14:16 Temperature Pulse Rate 72 73 Pulse Rate [ Anterior Bilateral Throughout] Respiratory 9 L 9 L Rate Respiratory Rate [Anterior Bilateral Throughout] Blood Pressure 170/89 170/89 O2 Sat by Pulse 96 98 97 Oximetry 02/13/18 02/13/18 02/13/18 14:25 14:48 14:56 Temperature 96.2 F L Pulse Rate Pulse Rate [ 102 H Anterior Bilateral Throughout] Respiratory Rate Respiratory 20 Rate [Anterior Bilateral Throughout] Blood Pressure 170/89 O2 Sat by Pulse 100 Oximetry 02/13/18 02/13/18 15:00 15:16 Temperature Pulse Rate 74 78 Pulse Rate [ Anterior Bilateral Throughout] Respiratory 9 L 19 Rate Respiratory Rate [Anterior Bilateral Throughout] Blood Pressure 172/104 172/104 O2 Sat by Pulse 100 98 Oximetry - Reevaluation(s) Reevaluation #1: 02/13/18 16:50 CT scan of the brain is negative for acute disease, patient receiving albuterol, and currently in no acute distress. - EJ/Peripheral Line Neck L Time Out Performed: Yes Indications: nurses unable to establis Skin Cleansed in Sterile Fashion: Yes Size: 18 Dressing Placed: Tegaderm Patient Tolerated Procedure: well ED Medical Decision Making - Lab Data Result diagrams: 02/13/18 13:11 02/13/18 13:11 Vital Signs 02/13/18 02/13/18 02/13/18 12:34 12:46 12:53 Temperature 97.9 F Pulse Rate 73 74 Pulse Rate [ Anterior Bilateral Throughout] Respiratory 11 L Rate Respiratory Rate [Anterior Bilateral Throughout] Blood Pressure 170/89 168/103 O2 Sat by Pulse 100 100 100 Oximetry 02/13/18 02/13/18 02/13/18 13:00 13:16 13:30 Temperature Pulse Rate 78 75 78 Pulse Rate [ Anterior Bilateral Throughout] Respiratory 10 L 12 14 Rate Respiratory Rate [Anterior Bilateral Throughout] Blood Pressure 170/89 170/89 170/89 O2 Sat by Pulse 97 100 96 Oximetry 02/13/18 02/13/18 02/13/18 13:46 14:00 14:16 Temperature Pulse Rate 72 73 Pulse Rate [ Anterior Bilateral Throughout] Respiratory 9 L 9 L Rate Respiratory Rate [Anterior Bilateral Throughout] Blood Pressure 170/89 170/89 O2 Sat by Pulse 96 98 97 Oximetry 02/13/18 02/13/18 14:25 14:48 Temperature 96.2 F L Pulse Rate Pulse Rate [ 102 H Anterior Bilateral Throughout] Respiratory Rate Respiratory 20 Rate [Anterior Bilateral Throughout] Blood Pressure O2 Sat by Pulse Oximetry Lab Results 02/13/18 02/13/18 02/13/18 Range/Units 13:11 13:11 13:11 WBC 5.8 (4.5-11.0) K/mm3 RBC 3.19 L (3.65-5.03) M/mm3 Hgb 10.6 L (11.8-15.2) gm/dl Hct 31.7 L (35.5-45.6) % MCV 100 H (84-94) fl MCH 33 H (28-32) pg MCHC 33 (32-34) % RDW 15.4 H (13.2-15.2) % Plt Count 179 (140-440) K/mm3 Lymph % (Auto) 19.3 (13.4-35.0) % [place] % (Auto) 11.4 H (0.0-7.3) % Eos % (Auto) 7.4 H (0.0-4.3) % Baso % (Auto) 0.3 (0.0-1.8) % Lymph # 1.1 L (1.2-5.4) K/mm3 [place] # 0.7 (0.0-0.8) K/mm3 Eos # 0.4 (0.0-0.4) K/mm3 Baso # 0.0 (0.0-0.1) K/mm3 Seg Neutrophils % 61.6 (40.0-70.0) % Seg Neutrophils # 3.6 (1.8-7.7) K/mm3 PT (12.2-14.9) Sec. INR (0.87-1.13) APTT (24.2-36.6) Sec. POC ABG pH (7.35-7.45) POC ABG pCO2 (35-45) POC ABG pO2 (80-105) POC ABG HCO3 POC ABG Total CO2 POC ABG O2 Sat POC ABG Base Excess FiO2 % Sodium 138 (137-145) mmol/L Potassium 5.9 H (3.6-5.0) mmol/L Chloride 96.2 L (98-107) mmol/L Carbon Dioxide 20 L (22-30) mmol/L Anion Gap 28 mmol/L BUN 118 H (9-20) mg/dL Creatinine 14.4 H (0.8-1.5) mg/dL Estimated GFR 4 ml/min BUN/Creatinine Ratio 8 % Glucose 88 (75-100) mg/dL Lactic Acid 0.30 L (0.7-2.0) mmol/L Calcium 8.7 (8.4-10.2) mg/dL Magnesium (1.7-2.3) mg/dL Total Bilirubin 0.30 (0.1-1.2) mg/dL AST 44 H (5-40) units/L ALT 20 (7-56) units/L Alkaline Phosphatase 88 (35-129) units/L Ammonia (25-60) umol/L NT-Pro-B Natriuret Pep (0-900) pg/mL Total Protein 7.2 (6.3-8.2) g/dL Albumin 3.8 L (3.9-5) g/dL Albumin/Globulin Ratio 1.1 % TSH (0.270-4.200) mlU/mL Urine Color (Yellow) Urine Turbidity (Clear) Urine pH (5.0-7.0) Ur Specific [place] (1.003-1.030) Urine Protein (Negative) mg/dL Urine Glucose (UA) (Negative) mg/dL Urine Ketones (Negative) mg/dL Urine Blood (Negative) Urine Nitrite (Negative) Urine Bilirubin (Negative) Urine Urobilinogen (<2.0) mg/dL Ur Leukocyte Esterase (Negative) Urine WBC (Auto) (0.0-6.0) /HPF Urine RBC (Auto) (0.0-6.0) /HPF U Epithel Cells (Auto) (0-13.0) /HPF Salicylates (2.8-20.0) mg/dL Acetaminophen (10.0-30.0) ug/mL 02/13/18 02/13/18 02/13/18 Range/Units 13:31 13:31 13:31 WBC (4.5-11.0) K/mm3 RBC (3.65-5.03) M/mm3 Hgb (11.8-15.2) gm/dl Hct (35.5-45.6) % MCV (84-94) fl MCH (28-32) pg MCHC (32-34) % RDW (13.2-15.2) % Plt Count (140-440) K/mm3 Lymph % (Auto) (13.4-35.0) % [place] % (Auto) (0.0-7.3) % Eos % (Auto) (0.0-4.3) % Baso % (Auto) (0.0-1.8) % Lymph # (1.2-5.4) K/mm3 [place] # (0.0-0.8) K/mm3 Eos # (0.0-0.4) K/mm3 Baso # (0.0-0.1) K/mm3 Seg Neutrophils % (40.0-70.0) % Seg Neutrophils # (1.8-7.7) K/mm3 PT 13.1 (12.2-14.9) Sec. INR 0.95 (0.87-1.13) APTT 35.4 (24.2-36.6) Sec. POC ABG pH (7.35-7.45) POC ABG pCO2 (35-45) POC ABG pO2 (80-105) POC ABG HCO3 POC ABG Total CO2 POC ABG O2 Sat POC ABG Base Excess FiO2 % Sodium (137-145) mmol/L Potassium (3.6-5.0) mmol/L Chloride (98-107) mmol/L Carbon Dioxide (22-30) mmol/L Anion Gap mmol/L BUN (9-20) mg/dL Creatinine (0.8-1.5) mg/dL Estimated GFR ml/min BUN/Creatinine Ratio % Glucose (75-100) mg/dL Lactic Acid (0.7-2.0) mmol/L Calcium (8.4-10.2) mg/dL Magnesium 3.00 H (1.7-2.3) mg/dL Total Bilirubin (0.1-1.2) mg/dL AST (5-40) units/L ALT (7-56) units/L Alkaline Phosphatase (35-129) units/L Ammonia 30.0 (25-60) umol/L NT-Pro-B Natriuret Pep 7410 H (0-900) pg/mL Total Protein (6.3-8.2) g/dL Albumin (3.9-5) g/dL Albumin/Globulin Ratio % TSH (0.270-4.200) mlU/mL Urine Color (Yellow) Urine Turbidity (Clear) Urine pH (5.0-7.0) Ur Specific [place] (1.003-1.030) Urine Protein (Negative) mg/dL Urine Glucose (UA) (Negative) mg/dL Urine Ketones (Negative) mg/dL Urine Blood (Negative) Urine Nitrite (Negative) Urine Bilirubin (Negative) Urine Urobilinogen (<2.0) mg/dL Ur Leukocyte Esterase (Negative) Urine WBC (Auto) (0.0-6.0) /HPF Urine RBC (Auto) (0.0-6.0) /HPF U Epithel Cells (Auto) (0-13.0) /HPF Salicylates (2.8-20.0) mg/dL Acetaminophen (10.0-30.0) ug/mL 02/13/18 02/13/18 02/13/18 Range/Units 13:31 13:31 13:31 WBC (4.5-11.0) K/mm3 RBC (3.65-5.03) M/mm3 Hgb (11.8-15.2) gm/dl Hct (35.5-45.6) % MCV (84-94) fl MCH (28-32) pg MCHC (32-34) % RDW (13.2-15.2) % Plt Count (140-440) K/mm3 Lymph % (Auto) (13.4-35.0) % [place] % (Auto) (0.0-7.3) % Eos % (Auto) (0.0-4.3) % Baso % (Auto) (0.0-1.8) % Lymph # (1.2-5.4) K/mm3 [place] # (0.0-0.8) K/mm3 Eos # (0.0-0.4) K/mm3 Baso # (0.0-0.1) K/mm3 Seg Neutrophils % (40.0-70.0) % Seg Neutrophils # (1.8-7.7) K/mm3 PT (12.2-14.9) Sec. INR (0.87-1.13) APTT (24.2-36.6) Sec. POC ABG pH (7.35-7.45) POC ABG pCO2 (35-45) POC ABG pO2 (80-105) POC ABG HCO3 POC ABG Total CO2 POC ABG O2 Sat POC ABG Base Excess FiO2 % Sodium (137-145) mmol/L Potassium (3.6-5.0) mmol/L Chloride (98-107) mmol/L Carbon Dioxide (22-30) mmol/L Anion Gap mmol/L BUN (9-20) mg/dL Creatinine (0.8-1.5) mg/dL Estimated GFR ml/min BUN/Creatinine Ratio % Glucose (75-100) mg/dL Lactic Acid (0.7-2.0) mmol/L Calcium (8.4-10.2) mg/dL Magnesium (1.7-2.3) mg/dL Total Bilirubin (0.1-1.2) mg/dL AST (5-40) units/L ALT (7-56) units/L Alkaline Phosphatase (35-129) units/L Ammonia (25-60) umol/L NT-Pro-B Natriuret Pep (0-900) pg/mL Total Protein (6.3-8.2) g/dL Albumin (3.9-5) g/dL Albumin/Globulin Ratio % TSH 1.080 (0.270-4.200) mlU/mL Urine Color (Yellow) Urine Turbidity (Clear) Urine pH (5.0-7.0) Ur Specific [place] (1.003-1.030) Urine Protein (Negative) mg/dL Urine Glucose (UA) (Negative) mg/dL Urine Ketones (Negative) mg/dL Urine Blood (Negative) Urine Nitrite (Negative) Urine Bilirubin (Negative) Urine Urobilinogen (<2.0) mg/dL Ur Leukocyte Esterase (Negative) Urine WBC (Auto) (0.0-6.0) /HPF Urine RBC (Auto) (0.0-6.0) /HPF U Epithel Cells (Auto) (0-13.0) /HPF Salicylates < 0.3 L (2.8-20.0) mg/dL Acetaminophen < 5.0 L (10.0-30.0) ug/mL 02/13/18 02/13/18 Range/Units 13:45 14:20 WBC (4.5-11.0) K/mm3 RBC (3.65-5.03) M/mm3 Hgb (11.8-15.2) gm/dl Hct (35.5-45.6) % MCV (84-94) fl MCH (28-32) pg MCHC (32-34) % RDW (13.2-15.2) % Plt Count (140-440) K/mm3 Lymph % (Auto) (13.4-35.0) % [place] % (Auto) (0.0-7.3) % Eos % (Auto) (0.0-4.3) % Baso % (Auto) (0.0-1.8) % Lymph # (1.2-5.4) K/mm3 [place] # (0.0-0.8) K/mm3 Eos # (0.0-0.4) K/mm3 Baso # (0.0-0.1) K/mm3 Seg Neutrophils % (40.0-70.0) % Seg Neutrophils # (1.8-7.7) K/mm3 PT (12.2-14.9) Sec. INR (0.87-1.13) APTT (24.2-36.6) Sec. POC ABG pH 7.311 L (7.35-7.45) POC ABG pCO2 40.0 (35-45) POC ABG pO2 82 (80-105) POC ABG HCO3 20.2 POC ABG Total CO2 21 POC ABG O2 Sat 95 POC ABG Base Excess -6 FiO2 21 % Sodium (137-145) mmol/L Potassium (3.6-5.0) mmol/L Chloride (98-107) mmol/L Carbon Dioxide (22-30) mmol/L Anion Gap mmol/L BUN (9-20) mg/dL Creatinine (0.8-1.5) mg/dL Estimated GFR ml/min BUN/Creatinine Ratio % Glucose (75-100) mg/dL Lactic Acid (0.7-2.0) mmol/L Calcium (8.4-10.2) mg/dL Magnesium (1.7-2.3) mg/dL Total Bilirubin (0.1-1.2) mg/dL AST (5-40) units/L ALT (7-56) units/L Alkaline Phosphatase (35-129) units/L Ammonia (25-60) umol/L NT-Pro-B Natriuret Pep (0-900) pg/mL Total Protein (6.3-8.2) g/dL Albumin (3.9-5) g/dL Albumin/Globulin Ratio % TSH (0.270-4.200) mlU/mL Urine Color Straw (Yellow) Urine Turbidity Clear (Clear) Urine pH 7.0 (5.0-7.0) Ur Specific [place] 1.008 (1.003-1.030) Urine Protein 100 mg/dl (Negative) mg/dL Urine Glucose (UA) 50 (Negative) mg/dL Urine Ketones Neg (Negative) mg/dL Urine Blood Mod (Negative) Urine Nitrite Neg (Negative) Urine Bilirubin Neg (Negative) Urine Urobilinogen < 2.0 (<2.0) mg/dL Ur Leukocyte Esterase Neg (Negative) Urine WBC (Auto) < 1.0 (0.0-6.0) /HPF Urine RBC (Auto) 1.0 (0.0-6.0) /HPF U Epithel Cells (Auto) < 1.0 (0-13.0) /HPF Salicylates (2.8-20.0) mg/dL Acetaminophen (10.0-30.0) ug/mL - EKG Data -: EKG Interpreted by Me EKG shows normal: sinus rhythm Rate: normal - EKG Data Interpretation: nonspecific ST-T wave [place] 02/13/18 15:09 Sinus, 74 bpm, normal axis, AL interval prolonged, motion artifact, atrial enlargement, poor R wave progression, low voltage in the lateral leads, abnormal EKG, not consistent with ST elevation myocardial infarction, nonspecific changes when compared to prior EKG from January 2015. - Radiology Data Radiology results: report reviewed, image reviewed X-ray of the chest demonstrates congestive heart failure, questionable left lower lobe opacity - Medical Decision Making Differential diagnosis, including not limited to: Uremic encephalopathy, altered mental status, hyperkalemia, pneumonia, urinary tract infection Assessment and plan: 62-year-old gentleman with evidence of congestive heart failure, fluid overload, hyperkalemia, possible uremic encephalopathy, requires medical admission for dialysis, electrolytes optimization, and further inpatient care. Not a TPA candidate as last known well time is not known. In addition, given metabolic abnormalities, I favor metabolic encephalopathy as etiology of patient's altered sensorium, rather than an acute ischemic event. Critical care attestation.: If time is entered above; I have spent that time in minutes in the direct care of this critically ill patient, excluding procedure time. ED Disposition Clinical Impression: Hyperkalemia, ESRD needing dialysis, Uremic encephalopathy Disposition: OP ADMIT IP TO THIS HOSP Is pt being admited?: Yes Condition: Fair
[2018-02-13 13:47] LABS: Albumin 3.8 g/dL (3.9-5); Calcium 8.7 mg/dL (8.4-10.2)
--- NOTE | 2018-02-13 14:03 | XRay Report ---
AP CHEST: HISTORY: Altered mental status Heart size and pulmonary veins are borderline. Subtle opacity has developed in the left lower lobe since 01/13/18. I suspect this represents segmental atelectasis. If fever is present, an early infiltrate could be considered. No pleural effusion or pneumothorax. IMPRESSION: Borderline to mild cardiomegaly and pulmonary venous congestion, stable. New left lower lobe opacity as described. Please correlate with the clinical presentation of the patient.
[2018-02-13] MEDS ORDERED: D50W (25GM) Syringe IV ONE (14:14)
[2018-02-13] MEDS ORDERED: HumuLIN R IV ONE (14:14)
[2018-02-13] MEDS ORDERED: LEVAQUIN 500MG/100ML 500 MG/100 ML BAG IV ONE (14:14)
[2018-02-13] MEDS ORDERED: CALCIUM GLUCONATE 1,000 MG in NACL 0.9% 100 ML IV ONE (14:14)
[2018-02-13] MEDS ORDERED: SODIUM BICARBONATE IV ONE (14:14)
[2018-02-13] MEDS ORDERED: KIONEX PR ONE (14:15)
[2018-02-13] MEDS ORDERED: PROVENTIL IH ONE (14:15)
[2018-02-13] MEDS ORDERED: LASIX 100 MG in NACL 0.9% 50 ML IV ONE (14:26)
[2018-02-13 14:39] LABS: INR 0.95 (0.87-1.13)
[2018-02-13 14:40] LABS: Partial Thromboplastin Time 35.4 Sec. (24.2-36.6)
[2018-02-13 15:04] LABS: Bilirubin,Urine NEG (Negative); Blood,Urine MOD (Negative); Color,Urine Straw (Yellow); Urobilinogen,Urine < 2.0 mg/dL (<2.0); WBC,Urine < 1.0 /HPF (0.0-6.0)
[2018-02-13] MEDS ORDERED: TYLENOL PO PRN (16:00)
[2018-02-13] MEDS ORDERED: ZOFRAN IV PRN (16:00)
[2018-02-13] MEDS ORDERED: SODIUM CHLORIDE FLUSH SYRINGE 10 ML IV PRN (16:00)
[2018-02-13] MEDS ORDERED: NACL 0.9% 100 ML IV PRN (16:06)
--- NOTE | 2018-02-13 16:07 | Cat Scan Report ---
FINAL REPORT EXAM: CT HEAD/BRAIN WO CON HISTORY: Altered mental status TECHNIQUE: CT of the Head without IV contrast. PRIORS: CT head July 10, 2017. FINDINGS: Decreased attenuation regions in the periventricular and subcortical white matter are nonspecific and may represent small vessel ischemic disease, encephalopathy, edema, or a demyelinating process. Smal l vessel ischemic disease (leukoaroaiosis) favored. Vascular calcifications. Chronic lacunar infarcts in both basal ganglia, right thalamus, and right frontal periventricular whi te matter. There is no evidence for acute ischemia. There is no hemorrhage. There is no midline shift. There is no hydrocephalus. There is no mass. Age appropriate cardoso-white matter attenuation is noted. There is no calvarial fracture. The temporal bones demonstrate aerated mastoid air cells. The middle ears appear unremarkable. Paranasal sinuses are unremarkable. Retention cysts in the right maxillary sinus measures 1.8 cm. Globes are intact. IMPRESSION: No acute intracranial findings. Chronic ischemic disease.
[2018-02-13] MEDS ORDERED: NACL 0.9 (PRIMING MACHINE ONLY DIALYSIS) MC ONE (16:32)
--- NOTE | 2018-02-13 16:33 | Consultation ---
History of Present Illness - Reason for Consult end stage renal disease, hyperkalemia - History of Present Illness 62 y/o AAM with h/o ESRD in the setting of DM, HTN, well known to our outpatient dialysis unit, presented to the ED secondary to AMS and concerns for uremic encephalopathy in the setting of missed HD sessions (x2). He as also found to e hyperkalemic on labs in the ED. Nephrology was consulted for further management in regards to HD needs. He has a LUE AVF. Last HD session was Friday, as he missed Friday's session secondary to personal reasons. The dialysis unit told me that when patient arrived to the unit this am for dialysis, he was very lethargic/altered mental status and was not started on the HD machine was transported to the hospital for further evaluation. During the time of my examination in the ED patient was more awake and answering questions, though he was still lethargic. Past History Past Medical History: CAD, diabetes, dialysis, hypertension, hyperlipidemia, renal failure Past Surgical History: Other (Left AVF creation, PCI) Social history: no significant social history Family history: diabetes, hypertension Medications and Allergies Allergies Allergy/AdvReac Type Severity Reaction Status Date / Time No Known Allergies Allergy Verified 02/28/17 00:21 Home Medications Medication Instructions Recorded Confirmed Last Taken Type Hydralazine HCl 50 mg PO BID 07/03/17 02/13/18 Unknown History ISOSORBIDE MONOnitrate [Imdur ER] 30 mg PO DAILY 07/03/17 02/13/18 Unknown History Ondansetron [Zofran TAB] 4 mg PO Q8HR PRN 07/03/17 02/13/18 Unknown History Rosuvastatin Calcium [Crestor] 20 mg PO QHS 07/03/17 02/13/18 Unknown History Sevelamer Carbonate [Renvela] 2,400 mg PO TIDWM 07/03/17 02/13/18 Unknown History amLODIPine [Norvasc] 10 mg PO DAILY 07/03/17 02/13/18 Unknown History cloNIDine [Catapres] 0.2 mg PO BID 07/03/17 02/13/18 Unknown History Aspirin [Aspirin BABY CHEW TAB] 81 mg PO QDAY #30 tab.chew 07/05/17 02/13/18 Unknown Rx B Complex 11/Folic/C/Biot/Zinc 1 each PO DAILY 02/13/18 02/13/18 Unknown History [Dialyvite with Zinc Tablet] Ergocalciferol (Vitamin D2) 50,000 unit PO QWEEK 02/13/18 02/13/18 Unknown History [Drisdol] Furosemide [Lasix] 80 mg PO BID 02/13/18 02/13/18 Unknown History HYDROcodone/ACETAMINOPHEN [[place] 1 each PO Q6H PRN 02/13/18 02/13/18 Unknown History 5-325 Tablet] Metoprolol [Lopressor TAB] 12.5 mg PO BID 02/13/18 02/13/18 Unknown History Omeprazole 20 mg PO QDAY 02/13/18 02/13/18 Unknown History hydroCHLOROthiazide [Hctz] 12.5 mg PO QDAY 02/13/18 02/13/18 Unknown History Active Meds: Active Medications Acetaminophen (Tylenol) 650 mg PO Q4H PRN PRN Reason: Pain MILD(1-3)/Fever >100.5/SAEED Heparin Sodium (Porcine) (Heparin) 5,000 unit SUB-Q Q12HR GORDO Hydromorphone HCl (Dilaudid) 0.5 mg IV Q3H PRN PRN Reason: Pain , Severe (7-10) Sodium Chloride (Nacl 0.9%) 100 mls @ 999 mls/hr IV JEANINE PRN PRN Reason: Hypotension Ondansetron HCl (Zofran) 4 mg IV Q8H PRN PRN Reason: Nausea And Vomiting Sodium Chloride (Sodium Chloride Flush Syringe 10 Ml) 10 ml IV BID GORDO Sodium Chloride (Sodium Chloride Flush Syringe 10 Ml) 10 ml IV PRN PRN PRN Reason: LINE FLUSH Review of Systems All systems: negative Constitutional: fatigue, weakness Respiratory: shortness of breath Exam - Vital Signs Vital signs: Vital Signs Pulse Ox 100 02/13/18 12:34 - General Appearance General appearance: appears stated age, moderate distress, fatigue EENT: ATNC, PERRL Neck: Present: neck supple, trachea midline Respiratory: Clear to Ascultation Heart: regular, S1S2 Gastrointestinal: Present: normal, normoactive bowel sounds Integumentary: no rash, warm and dry Neurologic: no focal deficit Musculoskeletal: Present: other (mild LE edema ) Psychiatric: cooperative Results - Lab Results 02/13/18 13:11 02/13/18 13:11 Most recent lab results Calcium 8.7 mg/dL (8.4-10.2) 02/13/18 13:11 Magnesium 3.00 mg/dL (1.7-2.3) H 02/13/18 13:31 Assessment and Plan - Patient Problems (1) ESRD needing dialysis Current Visit: Yes Status: Acute Plan to address problem: Will plan for urgent HD today and will also have him come for another session of HD tomorrow. Counselled patient on the importance of compliance with his HD as an outpatient. Verbal orders were called in to the dialysis unit for HD today. (2) Hyperkalemia Current Visit: Yes Status: Acute Plan to address problem: Will run patient on a 2K bath. Please ensure that patient is on low K renal diet. (3) Acute metabolic encephalopathy Current Visit: No Status: Acute Plan to address problem: Possibly secondary to uremic encephalopathy in the setting of missed HD sessions. Plan for consecutive HD sessions today and tomorrow. CT head noted without any acute abnormalities. (4) Acute respiratory failure with hypoxia Current Visit: No Status: Acute Plan to address problem: Stable on venturi mask. Chest xray noted. Will challed with UF goal 2-3L as t olerated on HD. (5) Anemia in chronic kidney disease Current Visit: No Status: Acute Qualifiers: Chronic kidney disease stage: on chronic dialysis Qualified Code(s): N18.6 - End stage renal disease; D63.1 - Anemia in chronic kidney disease; Z99.2 - Dependence on renal dialysis Plan to address problem: EPO with HD (6) Hypertensive chronic kidney disease with stage 5 chronic kidney disease or end stage renal disease Current Visit: No Status: Chronic Plan to address problem: Continue home antihypertensive regimen and will monitor closely. (7) Secondary hyperparathyroidism (of renal origin) Current Visit: Yes Status: Acute Plan to address problem: Patient to continue on home phos binder regimen.
[2018-02-13] MEDS ORDERED: NON-FORMULARY (Ondansetron [Zofran Tab] 4 MG) PO PRN (23:14)
--- NOTE | 2018-02-13 23:14 | Event Note ---
Date: 02/13/18 See Dictated H/p in reports Aute Uremic Encephalopathy Missed nHD ESRD on HD HTN
[2018-02-13] MEDS ORDERED: ZOFRAN ODT PO PRN (23:27)
[2018-02-13] MEDS: HEPARIN SUB-Q SCH (23:28)
[2018-02-13] MEDS: SODIUM CHLORIDE FLUSH SYRINGE 10 ML IV SCH (23:29)
[2018-02-14] MEDS: LOPRESSOR PO SCH ×3 (02:31→21:17)
[2018-02-14] MEDS ORDERED: DILAUDID ONE (02:56)
[2018-02-14] MEDS: DILAUDID IV PRN ×2 (02:58→08:28)
[2018-02-14 05:11] LABS: Basophils # (Auto) 0.1 K/mm3 (0.0-0.1); Basophils % (Auto) 1.4 % (0.0-1.8); Eosinophils # (Auto) 0.2 K/mm3 (0.0-0.4); Eosinophils % (Auto) 5.9 % (0.0-4.3); Hematocrit 30.3 % (35.5-45.6); Lymphocytes % (Auto) 23.8 % (13.4-35.0); Mean Corpuscular HGB Conc 33 % (32-34); Mean Corpuscular Volume 99 fl (84-94); Monocytes # (Auto) 0.5 K/mm3 (0.0-0.8); Monocytes % (Auto) 11.7 % (0.0-7.3); Platelet Count 166 K/mm3 (140-440); Red Blood Count 3.06 M/mm3 (3.65-5.03); Red Cell Distribution Width 15.4 % (13.2-15.2)
[2018-02-14 05:33] LABS: Albumin 3.9 g/dL (3.9-5); Calcium 8.7 mg/dL (8.4-10.2)
[2018-02-14] MEDS: HEPARIN SUB-Q SCH ×3 (07:47→21:19)
--- NOTE | 2018-02-14 07:56 | History and Physical Report ---
CHIEF COMPLAINT: 1. Altered sensorium. 2. Missed dialysis. HISTORY OF PRESENT ILLNESS: A 62-year-old male with history of end-stage renal disease with hypertension and type 2 diabetes, comes in for altered mental status and confusion. The patient missed 2 dialysis sessions because his father was sick and was admitted to this hospital. In the ER, the patient was confused. The patient unable to give much history. No fever or chills. No shortness of breath. PAST MEDICAL HISTORY: Significant for coronary artery disease, end-stage renal disease, hypertension, hyperlipidemia. PAST SURGICAL HISTORY: Left AV fistula. Cath in the past. SOCIAL HISTORY: Does not smoke. No alcohol, no recreational drugs. FAMILY HISTORY: Diabetes and hypertension. CURRENT MEDICATIONS: On the chart. REVIEW OF SYSTEMS: Significant for severe confusion and altered sensorium. No chest pain. Review of systems otherwise negative. PHYSICAL EXAMINATION: GENERAL: Elderly male, confused during my examination. VITAL SIGNS: Blood pressure 150/90, temperature 97.6, pulse is 77, respirations 16. HEENT: Unremarkable. Pupils equal and reactive. NECK: Supple, no lymphadenopathy, no thyromegaly. LUNGS: Clear to auscultation and percussion. Good air entry. CARDIOVASCULAR SYSTEM: S1, S2 heard. No gallop, no murmur, no rub. Apical impulse in left fifth intercostal space in midclavicular line. ABDOMEN: Soft and benign. No hepatosplenomegaly. No guarding, no rigidity. Hernial orifices are normal. EXTREMITIES: Good pedal pulses. No pedal edema. CENTRAL NERVOUS SYSTEM: Severely confused and altered sensorium, but otherwise intermittently responds well to questions. SKIN: Normal. LABORATORY DATA: Significant for creatinine of 14.4, potassium of 5.9. ABG significant for pH of 7.31, otherwise normal. H and H is 10.6 and 31.7, platelet count is 179,000. Urine negative. DIAGNOSTIC DATA: Chest x-ray shows borderline to mild cardiomegaly and pulmonary venous congestion. New left lower lobe opacity. Please correlate with the clinical presentation of the patient. PET CT, no acute findings. EKG, sinus rhythm, heart rate of 74. Probable left atrial enlargement. ASSESSMENT AND PLAN: 1. Acute encephalopathy secondary to uremia. The patient's creatinine is 14.4. The patient also passed out in the dialysis room. Code MET was called. The patient was reevaluated. The patient was answering questions. The patient was briefly admitted to ICU and transferred back to telemetry when the patient was found to be stable. In summary, the patient has acute encephalopathy secondary to missed dialysis. 2. End-stage renal disease, on hemodialysis. Continue hemodialysis. The patient counseled about the need for dialysis on a regular basis. 3. Hyperkalemia, treated in the Emergency Room with sodium bicarbonate and Kayexalate. 4. Type 2 diabetes, coverage for now. 5. Vitamin D deficiency, vitamin D on hold. 6. Hypertension. Because of the patient's instability some antihypertensives were on hold. Especially Lasix 80 mg twice a day and hydrochlorothiazide once a day. Also, clonidine is on hold. Amlodipine to be continued. Hydralazine to be continued. 7. Gastroesophageal reflux disease. Continue omeprazole. 8. Hyperlipidemia. Will hold Crestor for now. 9. Deep venous thrombosis prophylaxis, heparin 5000 q. 12. JOB# [id number] VSM/NTS
[2018-02-14] MEDS: RENVELA PO SCH ×3 (08:28→17:17)
[2018-02-14] MEDS ORDERED: NON-FORMULARY (Omeprazole [Omeprazole] 20 MG) PO SCH (10:00)
[2018-02-14] MEDS ORDERED: NON-FORMULARY (Hydralazine Hcl [Hydralazine Hcl] 50 MG) PO SCH (10:15)
[2018-02-14] MEDS: IMDUR PO SCH (10:18)
[2018-02-14] MEDS: NORVASC PO SCH (10:18)
[2018-02-14] MEDS: APRESOLINE PO SCH ×2 (10:18→21:16)
[2018-02-14] MEDS: BABY ASPIRIN PO SCH (10:18)
[2018-02-14] MEDS: PROTONIX PO SCH (10:18)
[2018-02-14] MEDS: SODIUM CHLORIDE FLUSH SYRINGE 10 ML IV SCH ×2 (10:19→22:08)
--- NOTE | 2018-02-14 11:02 | Progress Note ---
Assessment and Plan - Patient Problems (1) Hypertensive chronic kidney disease with stage 5 chronic kidney disease or end stage renal disease Current Visit: Yes Status: Acute Plan to address problem: Follow-up blood pressure on current medications (2) ESRD needing dialysis Current Visit: Yes Status: Acute Plan to address problem: Status post hemodialysis yesterday. We'll dialyze again today and reevaluate (3) Hyperkalemia Current Visit: Yes Status: Acute Plan to address problem: Improved but still a bit high. Hemodialysis again today on a 2K bath (4) Uremic encephalopathy Current Visit: Yes Status: Acute Plan to address problem: Secondary to severe azotemia secondary to missed dialysis treatments. Dialyze again today and reevaluate (5) Acute respiratory failure with hypoxia Current Visit: No Status: Acute Plan to address problem: Improved (6) Type 2 diabetes mellitus with diabetic nephropathy Current Visit: No Status: Acute Plan to address problem: Blood sugar management by primary attending Subjective Date of service: 02/14/18 Principal diagnosis: end-stage renal disease with uremic encephalopathy Interval history: Patient seen lying in bed. Feels better this morning. No chest pain or shortness of breath. No nausea or vomiting Objective - Exam Narrative Exam: Middle aged -[place] male lying in bed in no acute distress HEENT: NCAT, pink oral mucous membrane Neck: Supple, no venous distention CVS: S1S2 RRR with no murmur, rub or gallop Chest: Increased anterior-posterior diameter with diminished breath sounds Abdomen: Protuberant, soft, nontender, no organomegaly, bowel sounds are present Extremities: No edema Neuro: Awake, alert no focal deficits - Vital Signs Vital signs: Vital Signs - 12hr 02/14/18 02/14/18 02/14/18 00:00 02:16 02:31 Temperature 97.7 F 97.4 F L Pulse Rate 77 77 Respiratory Rate Blood Pressure 150/90 150/90 Blood Pressure [Left] O2 Sat by Pulse 97 Oximetry 02/14/18 02/14/18 02/14/18 04:39 04:40 05:00 Temperature 97.6 F Pulse Rate 72 75 74 Respiratory 18 Rate Blood Pressure 165/89 Blood Pressure [Left] O2 Sat by Pulse 91 99 Oximetry 02/14/18 07:48 Temperature 97.4 F L Pulse Rate 72 Respiratory 20 Rate Blood Pressure Blood Pressure 148/98 [Left] O2 Sat by Pulse 92 Oximetry - Lab 02/14/18 04:30 02/14/18 04:30 Most recent lab results Calcium 8.7 mg/dL (8.4-10.2) 02/14/18 04:30 Magnesium 3.00 mg/dL (1.7-2.3) H 02/13/18 13:31 Medications & Allergies - Medications Allergies/Adverse Reactions: Allergies No Known Allergies Allergy (Verified 02/28/17 00:21) Home Medications: Home Medications Medication Instructions Recorded Confirmed Last Taken Type Hydralazine HCl 50 mg PO BID 07/03/17 02/13/18 Unknown History ISOSORBIDE MONOnitrate [Imdur ER] 30 mg PO DAILY 07/03/17 02/13/18 Unknown History Ondansetron [Zofran TAB] 4 mg PO Q8HR PRN 07/03/17 02/13/18 Unknown History Rosuvastatin Calcium [Crestor] 20 mg PO QHS 07/03/17 02/13/18 Unknown History Sevelamer Carbonate [Renvela] 2,400 mg PO TIDWM 07/03/17 02/13/18 Unknown History amLODIPine [Norvasc] 10 mg PO DAILY 07/03/17 02/13/18 Unknown History cloNIDine [Catapres] 0.2 mg PO BID 07/03/17 02/13/18 Unknown History Aspirin [Aspirin BABY CHEW TAB] 81 mg PO QDAY #30 tab.chew 07/05/17 02/13/18 Unknown Rx B Complex 11/Folic/C/Biot/Zinc 1 each PO DAILY 02/13/18 02/13/18 Unknown History [Dialyvite with Zinc Tablet] Ergocalciferol (Vitamin D2) 50,000 unit PO QWEEK 02/13/18 02/13/18 Unknown History [Drisdol] Furosemide [Lasix] 80 mg PO BID 02/13/18 02/13/18 Unknown History HYDROcodone/ACETAMINOPHEN [[place] 1 each PO Q6H PRN 02/13/18 02/13/18 Unknown History 5-325 Tablet] Metoprolol [Lopressor TAB] 12.5 mg PO BID 02/13/18 02/13/18 Unknown History Omeprazole 20 mg PO QDAY 02/13/18 02/13/18 Unknown History hydroCHLOROthiazide [Hctz] 12.5 mg PO QDAY 02/13/18 02/13/18 Unknown History Active Medications: Generic Name Dose Route Start Last Admin Trade Name Freq PRN Reason Stop Dose Admin Acetaminophen 650 mg 02/13/18 16:00 Tylenol PO Q4H PRN Pain MILD(1-3)/Fever >100.5/SAEED Amlodipine Besylate 10 mg 02/14/18 10:00 02/14/18 10:18 Norvasc PO 10 mg DAILY GORDO Administration Aspirin 81 mg 02/14/18 10:00 02/14/18 10:18 Baby Aspirin PO 81 mg QDAY GORDO Administration Heparin Sodium (Porcine) 5,000 unit 02/13/18 16:00 02/14/18 10:19 Heparin SUB-Q 5,000 unit Q12HR GORDO Administration Hydralazine HCl 50 mg 02/14/18 10:00 02/14/18 10:18 Apresoline PO 50 mg BID GORDO Administration Hydromorphone HCl 0.5 mg 02/13/18 16:00 02/14/18 08:28 Dilaudid IV 0.5 mg Q3H PRN Administration Pain , Severe (7-10) Sodium Chloride 100 mls @ 999 mls/hr 02/13/18 16:06 Nacl 0.9% IV JEANINE PRN Hypotension Isosorbide Mononitrate 30 mg 02/14/18 10:00 02/14/18 10:18 Imdur PO 30 mg DAILY GORDO Administration Metoprolol Tartrate 12.5 mg 02/13/18 23:45 02/14/18 10:18 Lopressor PO 12.5 mg BID GORDO Administration Ondansetron HCl 4 mg 02/13/18 16:00 Zofran IV Q8H PRN Nausea And Vomiting Ondansetron HCl 4 mg 02/13/18 23:27 Zofran Odt PO Q8H PRN Nausea Pantoprazole Sodium 20 mg 02/14/18 10:00 02/14/18 10:18 Protonix PO 20 mg QDAY GORDO Administration Sevelamer Carbonate 2,400 mg 02/14/18 08:00 02/14/18 08:28 Renvela PO 2,400 mg TIDWM GORDO Administration Sodium Chloride 10 ml 02/13/18 22:00 02/14/18 10:19 Sodium Chloride Flush Syringe 10 Ml IV 10 ml BID GORDO Administration Sodium Chloride 10 ml 02/13/18 16:00 Sodium Chloride Flush Syringe 10 Ml IV PRN PRN LINE FLUSH
[2018-02-14] MEDS ORDERED: NACL 0.9 (PRIMING MACHINE ONLY DIALYSIS) MC ONE (13:21)
--- NOTE | 2018-02-14 17:51 | Discharge Summary ---
Providers - Providers Date of Admission: 02/13/18 18:20 Date of discharge: 02/14/18 Attending physician: ANA COTTON 02/13/18 14:14 Consult to Physician [CONS] Urgent Comment: DR KIM NOTIFIED Consulting Provider: BONY DOBBS Physician Instructions: Reason For Exam: esrd Primary care physician: AUDIO VISUAL SECRETARY Hospitalization Condition: Fair Hospital course: This 62-year-old male with history of incisional disease, hypertension and diabetes type 2 came in for altered mental status and confusion. Patient missed 2 sessions of dialysis because his father was sick. In the ER patient was confused and was unable to give much history. Nephrology was consulted and patient was taken for emergent dialysis. His mental status significantly improved following the dialysis. He also noted hyperkalemic. Potassium level was monitored and improved following dialysis. His CT head was unremarkable, chest x-ray shows pulmonary congestion. Patient was clinically improved and nephrology cleared the patient for discharge. Patient was instructed to be compliant with the outpatient dialysis. Patient was discharged home in stable condition. Radiological test: CT head: No acute intracranial findings. Chronic ischemic disease. chest x-ray: Borderline to mild cardiomegaly and pulmonary venous congestion, stable. New left lower lobe opacity as described. Please correlate with the clinical presentation of the patient. Discharge diagnosis: Acute encephalopathy secondary to uremia, improved following a HD End-stage renal disease on hemodialysis, nephrology consulted Hyperkalemia due to test is renal disease, monitored Diabetes mellitus type 2 Vitamin D deficiency Hypertension, BP meds were adjusted Hyperlipidemia GERD Disposition: - TO HOME OR SELFCARE Time spent for discharge: 34 minutes Core Measure Documentation - Palliative Care Palliative Care/ Comfort Measures: Not Applicable - Core Measures Any of the following diagnoses?: none Exam - Constitutional Vitals: Temp Pulse Resp BP Pulse Ox 97.8 F 82 20 129/69 100 02/14/18 15:15 02/14/18 16:16 02/14/18 16:16 02/14/18 16:16 02/14/18 16:16 General appearance: Present: no acute distress, well-nourished - EENT Eyes: Present: PERRL ENT: hearing intact, clear oral mucosa - Neck Neck: Present: supple, normal ROM - Respiratory Respiratory effort: normal Respiratory: bilateral: CTA - Cardiovascular Heart Sounds: Present: S1 & S2. Absent: rub, click - Extremities Extremities: pulses symmetrical, No edema Peripheral Pulses: within normal limits - Abdominal General gastrointestinal: Present: soft, non-tender, non-distended, normal bowel sounds - Integumentary Integumentary: Present: clear, warm, dry - Musculoskeletal Musculoskeletal: gait normal, strength equal bilaterally - Psychiatric Psychiatric: appropriate mood/affect, intact judgment & insight - Neurologic Neurologic: CNII-XII intact, moves all extremities Plan Activity: advance as tolerated Weight Bearing Status: Weight Bear as Tolerated Diet: renal Additional Instructions: Continue hemodialysis as scheduled outpatient. Please be compliant with your outpatient dialysis Follow up with: PRIMARY CARE, [Primary Care Provider] - 3-5 Days Forms: Discharge Signature Page Prescriptions: amLODIPine [Norvasc] 10 mg PO DAILY #30 tablet ISOSORBIDE MONOnitrate [Imdur ER] 30 mg PO DAILY #30 tablet Metoprolol [Lopressor TAB] 12.5 mg PO BID #30 tablet
[2018-02-15] MEDS: RENVELA PO SCH (07:51)
[2018-02-15 08:00] VITALS: BP 124/78
[2018-02-15] MEDS: LOPRESSOR PO SCH (09:53)
[2018-02-15] MEDS: APRESOLINE PO SCH (09:53)
[2018-02-15] MEDS: BABY ASPIRIN PO SCH (09:53)
[2018-02-15] MEDS: IMDUR PO SCH (09:53)
[2018-02-15] MEDS: HEPARIN SUB-Q SCH (09:53)
[2018-02-15] MEDS: NORVASC PO SCH (09:53)
[2018-02-15] MEDS: PROTONIX PO SCH (09:53)
[2018-02-15] MEDS: SODIUM CHLORIDE FLUSH SYRINGE 10 ML IV SCH (09:54)
--- NOTE | 2018-02-15 14:20 | Event Note ---
Date: 02/15/18 patient was not discharged yesterday as he didnot have a ride. arranged transportation today.
== END 2018-02-15 11:00 | disposition home or self-care (01) | DRG 640 ==
LOC: ED 12:31 → 4A 15:26 → UNDOADMIN 15:26 → 4A 17:18 → CC1 18:29 → 4A 02-14 02:30
PROVIDERS: ADMIT Internal Medicine; ATTEND Internal Medicine
PROC: 4A033R1 Measurement of Arterial Saturation, Peripheral, Percutaneous Approach (ICD-10-PCS; principal; 2018-02-13)
PROC: 5A1D70Z Performance of Urinary Filtration, Intermittent, Less than 6 Hours Per Day (ICD-10-PCS; 2018-02-13)
PROC: 5A1D70Z Performance of Urinary Filtration, Intermittent, Less than 6 Hours Per Day (ICD-10-PCS; 2018-02-14)
DX: E87.5 Hyperkalemia (principal); J96.01 Acute respiratory failure with hypoxia; N18.6 End stage renal disease; G93.41 Metabolic encephalopathy; I13.2 Hypertensive heart and chronic kidney disease with heart failure and with stage 5 chronic kidney disease, or end stage renal disease; N25.81 Secondary hyperparathyroidism of renal origin; E11.22 Type 2 diabetes mellitus with diabetic chronic kidney disease; I25.10 Atherosclerotic heart disease of native coronary artery without angina pectoris; D63.1 Anemia in chronic kidney disease; E11.21 Type 2 diabetes mellitus with diabetic nephropathy; K21.9 Gastro-esophageal reflux disease without esophagitis; E78.5 Hyperlipidemia, unspecified; I50.9 Heart failure, unspecified; E55.9 Vitamin D deficiency, unspecified; Z99.2 Dependence on renal dialysis; Z95.5 Presence of coronary angioplasty implant and graft; Z83.3 Family history of diabetes mellitus; Z82.49 Family history of ischemic heart disease and other diseases of the circulatory system; Z79.899 Other long term (current) drug therapy; Z86.73 Personal history of transient ischemic attack (TIA), and cerebral infarction without residual deficits
CPT/HCPCS: 36415; 36600; 70450; 71045; 80053; 80320; 81001; 82140; 82803; 82962; 83036; 83735; 83880; 84443; 85025; 85610; 85730; 87040; 87086; 93005; 93010; 94760; G0378; G0480; J0610; J1170; J1644; J1815; J1940; J1956; J2405; J7030

== ENCOUNTER 2018-03-11 08:33 | Inpatient (IN) | payer MEDICARE ==
--- NOTE | 2018-03-11 10:17 | Emergency Department Report ---
ED Shortness of Breath HPI - General Chief Complaint: Dyspnea/Respdistress Stated Complaint: WAYNE Time Seen by Provider: 03/11/18 10:09 Source: patient, EMS Mode of arrival: Stretcher Limitations: No Limitations - Related Data Home Medications Medication Instructions Recorded Confirmed Last Taken Rosuvastatin Calcium [Crestor] 20 mg PO QHS 07/03/17 02/13/18 Unknown Sevelamer Carbonate [Renvela] 2,400 mg PO TIDWM 07/03/17 02/13/18 Unknown B Complex 11/Folic/C/Biot/Zinc 1 each PO DAILY 02/13/18 02/13/18 Unknown [Dialyvite with Zinc Tablet] Ergocalciferol (Vitamin D2) 50,000 unit PO QWEEK 02/13/18 02/13/18 Unknown [Drisdol] Omeprazole 20 mg PO QDAY 02/13/18 02/13/18 Unknown Previous Rx's Medication Instructions Recorded Last Taken Type Aspirin [Aspirin BABY CHEW TAB] 81 mg PO QDAY #30 tab.chew 07/05/17 Unknown Rx ISOSORBIDE MONOnitrate [Imdur ER] 30 mg PO DAILY #30 tablet 02/14/18 Unknown Rx Metoprolol [Lopressor TAB] 12.5 mg PO BID #30 tablet 02/14/18 Unknown Rx amLODIPine [Norvasc] 10 mg PO DAILY #30 tablet 02/14/18 Unknown Rx Allergies Allergy/AdvReac Type Severity Reaction Status Date / Time No Known Allergies Allergy Verified 02/28/17 00:21 ED Review of Systems ROS: Stated complaint: WAYNE Other details as noted in HPI ED Past Medical Hx - Past Medical History Hx Hypertension: Yes Hx CVA: Yes (x2) Hx Heart Attack/AMI: No Hx Congestive Heart Failure: Yes Hx Diabetes: Yes Hx Deep Vein Thrombosis: No Hx Liver Disease: No Hx Renal Disease: Yes (end-stage renal disease) Hx Arthritis: No Hx Seizures: Yes Hx Asthma: No Hx COPD: No Additional medical history: Cardiac Stents, dialysis -W- - Surgical History Past Surgical History?: Yes Hx Coronary Stent: Yes Hx Pacemaker: No Hx Internal Defibrillator: No Additional Surgical History: Cardiac stents 3 months ago 08/22? av graft to left arm - Social History Smoking Status: Former Smoker Substance Use Type: Marijuana - Medications Home Medications: Home Medications Medication Instructions Recorded Confirmed Last Taken Type Rosuvastatin Calcium [Crestor] 20 mg PO QHS 07/03/17 02/13/18 Unknown History Sevelamer Carbonate [Renvela] 2,400 mg PO TIDWM 07/03/17 02/13/18 Unknown History Aspirin [Aspirin BABY CHEW TAB] 81 mg PO QDAY #30 tab.chew 07/05/17 02/13/18 Unknown Rx B Complex 11/Folic/C/Biot/Zinc 1 each PO DAILY 02/13/18 02/13/18 Unknown History [Dialyvite with Zinc Tablet] Ergocalciferol (Vitamin D2) 50,000 unit PO QWEEK 02/13/18 02/13/18 Unknown History [Drisdol] Omeprazole 20 mg PO QDAY 02/13/18 02/13/18 Unknown History ISOSORBIDE MONOnitrate [Imdur ER] 30 mg PO DAILY #30 tablet 02/14/18 Unknown Rx Metoprolol [Lopressor TAB] 12.5 mg PO BID #30 tablet 02/14/18 Unknown Rx amLODIPine [Norvasc] 10 mg PO DAILY #30 tablet 02/14/18 Unknown Rx ED Physical Exam - General Limitations: No Limitations ED Course Vital Signs 03/11/18 03/11/18 03/11/18 08:45 09:00 09:16 Pulse Rate 83 82 Respiratory 23 21 17 Rate Blood Pressure 163/95 168/89 O2 Sat by Pulse 88 93 94 Oximetry 03/11/18 03/11/18 09:30 09:46 Pulse Rate 83 79 Respiratory 17 16 Rate Blood Pressure 168/89 168/89 O2 Sat by Pulse 98 97 Oximetry Critical care attestation.: If time is entered above; I have spent that time in minutes in the direct care of this critically ill patient, excluding procedure time. ED Disposition Condition: Stable Referrals: JOE DEUTSCH MD [Primary Care Provider] - 3-5 Days
--- NOTE | 2018-03-11 10:26 | Emergency Department Report ---
ED Shortness of Breath HPI - General Chief Complaint: Dyspnea/Respdistress Stated Complaint: WAYNE Time Seen by Provider: 03/11/18 10:02 Source: patient, EMS Mode of arrival: Stretcher Limitations: No Limitations - History of Present Illness Initial Comments: Patient is a 62-year-old male that comes emergency room with complaints of shortness of breath and dyspnea on exertion. Patient states symptoms started 2 days ago and are worsening. Patient states he was at dialysis on Friday and symptoms have worsened since then. Patient states he also noticed the fluid in his abdomen is getting worse. Patient complains of abdominal discomfort but no abdominal pain. Patient denies fever and chills.. Patient denies chest pain. Patient denies cough. Patient states that his shortness of breath is better with sitting upright and rest and oxygen. Patient states his symptoms are worse with exertion and lying flat. Patient states his symptoms are severe. Patient states he still makes urine MD Complaint: shortness of breath -: Sudden Severity: severe Consistency: constant, other (worsening) Improves With: oxygen, rest, bronchodilators, upright position Worsens With: lying flat, exertion Known History Of: congestive heart failure Associated Symptoms: lower abdominal swelling Treatments Prior to Arrival: oxygen, bronchodilator - Related Data Home Oxygen Therapy: No Home Medications Medication Instructions Recorded Confirmed Last Taken Rosuvastatin Calcium [Crestor] 20 mg PO QHS 07/03/17 02/13/18 Unknown Sevelamer Carbonate [Renvela] 2,400 mg PO TIDWM 07/03/17 02/13/18 Unknown B Complex 11/Folic/C/Biot/Zinc 1 each PO DAILY 02/13/18 02/13/18 Unknown [Dialyvite with Zinc Tablet] Ergocalciferol (Vitamin D2) 50,000 unit PO QWEEK 02/13/18 02/13/18 Unknown [Drisdol] Omeprazole 20 mg PO QDAY 02/13/18 02/13/18 Unknown Previous Rx's Medication Instructions Recorded Last Taken Type Aspirin [Aspirin BABY CHEW TAB] 81 mg PO QDAY #30 tab.chew 07/05/17 Unknown Rx ISOSORBIDE MONOnitrate [Imdur ER] 30 mg PO DAILY #30 tablet 02/14/18 Unknown Rx Metoprolol [Lopressor TAB] 12.5 mg PO BID #30 tablet 02/14/18 Unknown Rx amLODIPine [Norvasc] 10 mg PO DAILY #30 tablet 02/14/18 Unknown Rx Allergies Allergy/AdvReac Type Severity Reaction Status Date / Time No Known Allergies Allergy Verified 02/28/17 00:21 ED Review of Systems ROS: Stated complaint: WAYNE Other details as noted in HPI Constitutional: denies: chills, fever Eyes: denies: eye pain, eye discharge, vision change ENT: denies: ear pain, throat pain Respiratory: orthopnea, shortness of breath, SOB with exertion, SOB at rest. denies: cough, wheezing Cardiovascular: denies: chest pain, palpitations Endocrine: no symptoms reported Gastrointestinal: denies: abdominal pain, nausea, diarrhea Genitourinary: denies: urgency, dysuria Musculoskeletal: denies: back pain, joint swelling, arthralgia Skin: denies: rash, lesions Neurological: denies: headache, weakness, paresthesias Psychiatric: denies: anxiety, depression Hematological/Lymphatic: denies: easy bleeding, easy bruising ED Past Medical Hx - Past Medical History Previous Medical History?: Yes Hx Hypertension: Yes Hx CVA: Yes (x2) Hx Heart Attack/AMI: No Hx Congestive Heart Failure: Yes Hx Diabetes: Yes Hx Deep Vein Thrombosis: No Hx Liver Disease: No Hx Renal Disease: Yes (end-stage renal disease) Hx Arthritis: No Hx Seizures: Yes Hx Asthma: No Hx COPD: No Additional medical history: Cardiac Stents, dialysis M-W- - Surgical History Past Surgical History?: Yes Hx Coronary Stent: Yes Hx Pacemaker: No Hx Internal Defibrillator: No Additional Surgical History: Cardiac stents 3 months ago 08/22? av graft to left arm - Family History Family history: no significant - Social History Smoking Status: Former Smoker Substance Use Type: Marijuana - Medications Home Medications: Home Medications Medication Instructions Recorded Confirmed Last Taken Type Rosuvastatin Calcium [Crestor] 20 mg PO QHS 07/03/17 02/13/18 Unknown History Sevelamer Carbonate [Renvela] 2,400 mg PO TIDWM 07/03/17 02/13/18 Unknown History Aspirin [Aspirin BABY CHEW TAB] 81 mg PO QDAY #30 tab.chew 07/05/17 02/13/18 Unknown Rx B Complex 11/Folic/C/Biot/Zinc 1 each PO DAILY 02/13/18 02/13/18 Unknown History [Dialyvite with Zinc Tablet] Ergocalciferol (Vitamin D2) 50,000 unit PO QWEEK 02/13/18 02/13/18 Unknown H istory [Drisdol] Omeprazole 20 mg PO QDAY 02/13/18 02/13/18 Unknown History ISOSORBIDE MONOnitrate [Imdur ER] 30 mg PO DAILY #30 tablet 02/14/18 Unknown Rx Metoprolol [Lopressor TAB] 12.5 mg PO BID #30 tablet 02/14/18 Unknown Rx amLODIPine [Norvasc] 10 mg PO DAILY #30 tablet 02/14/18 Unknown Rx ED Physical Exam - General Limitations: No Limitations General appearance: alert, in no apparent distress - Head Head exam: Present: atraumatic, normocephalic - Eye Eye exam: Present: normal appearance, PERRL Pupils: Present: normal accommodation - ENT ENT exam: Present: mucous membranes dry - Neck Neck exam: Present: normal inspection - Respiratory Respiratory exam: Present: rales - Cardiovascular Cardiovascular Exam: Present: regular rate, normal rhythm. Absent: systolic murmur, diastolic murmur, rubs, gallop - GI/Abdominal GI/Abdominal exam: Present: soft, distended, normal bowel sounds. Absent: tenderness, guarding, rebound - Rectal Rectal exam: Present: deferred - Extremities Exam Extremities exam: Present: pedal edema - Back Exam Back exam: Present: normal inspection - Neurological Exam Neurological exam: Present: alert, oriented X3 - Psychiatric Psychiatric exam: Present: normal affect, normal mood - Skin Skin exam: Present: warm, dry, intact, normal color. Absent: rash ED Course Vital Signs 03/11/18 03/11/18 03/11/18 08:45 09:00 09:16 Temperature Pulse Rate 83 82 Respiratory 23 21 17 Rate Blood Pressure 163/95 168/89 O2 Sat by Pulse 88 93 94 Oximetry 03/11/18 03/11/18 03/11/18 09:30 09:46 10:00 Temperature Pulse Rate 83 79 82 Respiratory 17 16 13 Rate Blood Pressure 168/89 168/89 168/89 O2 Sat by Pulse 98 97 98 Oximetry 03/11/18 03/11/18 03/11/18 10:16 10:30 10:46 Temperature Pulse Rate 76 77 78 Respiratory 13 13 15 Rate Blood Pressure 168/89 168/89 168/89 O2 Sat by Pulse 99 98 97 Oximetry 03/11/18 03/11/18 03/11/18 11:00 11:16 11:30 Temperature Pulse Rate 75 73 79 Respiratory 13 13 18 Rate Blood Pressure 168/89 166/101 166/101 O2 Sat by Pulse 99 100 99 Oximetry 03/11/18 03/11/18 03/11/18 11:46 12:00 12:16 Temperature Pulse Rate 76 80 84 Respiratory 15 17 21 Rate Blood Pressure 166/101 166/101 168/90 O2 Sat by Pulse 99 99 97 Oximetry 03/11/18 03/11/18 03/11/18 12:30 12:46 13:00 Temperature Pulse Rate 79 79 79 Respiratory 18 15 17 Rate Blood Pressure 168/90 168/90 168/90 O2 Sat by Pulse 95 99 98 Oximetry 03/11/18 03/11/18 03/11/18 13:16 13:30 14:41 Temperature Pulse Rate 92 H 86 76 Respiratory 25 H 17 Rate Blood Pressure 168/90 168/90 183/103 O2 Sat by Pulse 95 98 Oximetry 03/11/18 03/11/18 03/11/18 14:45 15:00 15:15 Temperature Pulse Rate 76 78 77 Respiratory Rate Blood Pressure 165/98 165/98 163/97 O2 Sat by Pulse Oximetry 03/11/18 03/11/18 03/11/18 15:21 15:30 15:45 Temperature 97.9 F Pulse Rate 78 76 75 Respiratory 17 Rate Blood Pressure 165/97 151/88 145/84 O2 Sat by Pulse Oximetry - Reevaluation(s) Reevaluation #1: Discussed all results with patient. Discussed plan of care with patient the patient agreed to plan of care and admission. Patient admitted to the hospital service for further treatment. Patient to be given IV Lasix. Patient states he still makes urine. Patient states his jig grinder is local. Patient's nephro logist group will be consult. 03/11/18 12:01 - Consultations Consultation #1: Hospitalist consult for admission. Hospitalist to admit patient and assume care of patient. Bridge orders placed 03/11/18 12:09 Consultation #2: Manager Wellness paged. 03/11/18 12:[address] Nicole. Dr. Nicole to set up dialysis for patient 03/11/18 13:03 ED Medical Decision Making - Lab Data Result diagrams: 03/11/18 10:37 03/11/18 10:37 - EKG Data -: EKG Interpreted by Me EKG shows normal: sinus rhythm, axis, intervals, QRS complexes, ST-T waves Rate: normal - Radiology Data Radiology results: report reviewed, image reviewed AP CHEST: HISTORY: Dyspnea Borderline heart size and pulmonary vessels appear stable since 02/13/18. The subtle opacity at the left lung base has resolved. No evidence for pneumonia, large pleural effusion or pneumothorax. The bony thorax is grossly intact. IMPRESSION: Borderline heart size and pulmonary vessels - Medical Decision Making 62-year-old male presents emergency with complaints of shortness of breath and abdominal distention. Patient's findings as well as CHF exacerbation. Patient will require in-hospital dialysis for hyperkalemia and volume overload. Hospitalist consult for admission. Hospitalist to admit patient for further evaluation treatment. Manager Wellness consulted. - Differential Diagnosis chf exacerbation. Volume overload. Missed dialysis. Critical Care Time: Yes Critical care attestation.: If time is entered above; I have spent that time in minutes in the direct care of this critically ill patient, excluding procedure time. Critical Care Time: 45 minutes ED Disposition Clinical Impression: Shortness of breath, ESRD (end stage renal disease), Acute pulmonary edema, End stage renal disease on dialysis, Elevated troponin, Hyperkalemia CHF exacerbation Qualifiers: Heart failure type: unspecified Qualified Code(s): I50.9 - Heart failure, unspecified CHF (congestive heart failure) Qualifiers: Heart failure type: unspecified Heart failure chronicity: acute on chronic Qualified Code(s): I50.9 - Heart failure, unspecified Disposition: -09 OP ADMIT IP TO THIS HOSP Is pt being admited?: Yes Does the pt Need Aspirin: No Condition: Critical Time of Disposition: 12:11
--- NOTE | 2018-03-11 10:44 | XRay Report ---
AP CHEST: HISTORY: Dyspnea Borderline heart size and pulmonary vessels appear stable since 02/13/18. The subtle opacity at the left lung base has resolved. No evidence for pneumonia, large pleural effusion or pneumothorax. The bony thorax is grossly intact. IMPRESSION: Borderline heart size and pulmonary vessels.
[2018-03-11 10:53] LABS: Basophils % (Auto) 0.3 % (0.0-1.8); Eosinophils # (Auto) 0.2 K/mm3 (0.0-0.4); Eosinophils % (Auto) 3.3 % (0.0-4.3); Hematocrit 34.3 % (35.5-45.6); Hemoglobin 11.4 gm/dl (11.8-15.2); Lymphocytes # (Auto) 1.1 K/mm3 (1.2-5.4); Lymphocytes % (Auto) 18.2 % (13.4-35.0); Mean Corpuscular HGB Conc 33 % (32-34); Mean Corpuscular Volume 103 fl (84-94); Monocytes # (Auto) 0.7 K/mm3 (0.0-0.8); Monocytes % (Auto) 10.8 % (0.0-7.3); Platelet Count 200 K/mm3 (140-440); Red Blood Count 3.35 M/mm3 (3.65-5.03); Red Cell Distribution Width 16.4 % (13.2-15.2)
[2018-03-11 11:21] LABS: Albumin 4.1 g/dL (3.9-5); Calcium 9.1 mg/dL (8.4-10.2)
[2018-03-11 11:48] LABS: Chol/HDL Ratio 2.02 %
[2018-03-11] MEDS ORDERED: LASIX IV ONE (11:57)
[2018-03-11] MEDS ORDERED: NACL 0.9% 100 ML IV PRN (13:07)
[2018-03-11] MEDS ORDERED: ALBURX 25% (ALBUMIN) IV PRN (13:07)
[2018-03-11] MEDS ORDERED: DILAUDID IV PRN (20:56)
[2018-03-11] MEDS: ATARAX PO PRN (21:23)
--- NOTE | 2018-03-12 01:11 | History and Physical Report ---
History of Present Illness Date of examination: 03/11/18 Date of admission: 03/11/18 12:11 Chief complaint: Increasing shortness of breath for 2 days History of present illness: 62-year-old male with history of end-stage renal disease comes in for increasing shortness of breath. Also abdominal distention secondary to fluid retention. Patient had dialysis on Friday. In spite of hemodialysis patient's shortness of breath is getting worse. Patient also has orthopnea. Patient has class IV NYHA symptoms. No shoulder fever or chills. - Past Medical History Previous Medical History?: Yes Hx Hypertension: Yes Hx CVA: Yes (x2) Hx Congestive Heart Failure: Yes Hx Diabetes: Yes Hx Renal Disease: Yes (end-stage renal disease) Additional medical history: Cardiac Stents, dialysis -- Surgical History Past Surgical History?: Yes Hx Coronary Stent: Yes Hx Internal Defibrillator: No Additional Surgical History: Cardiac stents av graft to left arm Family History Family history: no significant Social History Smoking Status: Former Smoker Substance Use Type: Marijuana - Medications Home Medications: Home Medications Medication Instructions Recorded Confirmed Last Taken Type Rosuvastatin Calcium [Crestor] 20 mg PO QHS 07/03/17 02/13/18 Unknown History Sevelamer Carbonate [Renvela] 2,400 mg PO TIDWM 07/03/17 02/13/18 Unknown History Aspirin [Aspirin BABY CHEW TAB] 81 mg PO QDAY #30 tab.chew 07/05/17 02/13/18 Unknown Rx B Complex 11/Folic/C/Biot/Zinc 1 each PO DAILY 02/13/18 02/13/18 Unknown History [Dialyvite with Zinc Tablet] Ergocalciferol (Vitamin D2) 50,000 unit PO QWEEK 02/13/18 02/13/18 Unknown History [Drisdol] Omeprazole 20 mg PO QDAY 02/13/18 02/13/18 Unknown History ISOSORBIDE MONOnitrate [Imdur ER] 30 mg PO DAILY #30 tablet 02/14/18 Unknown Rx Metoprolol [Lopressor TAB] 12.5 mg PO BID #30 tablet 02/14/18 Unknown Rx amLODIPine [Norvasc] 10 mg PO DAILY #30 tablet 02/14/18 Unknown Rx Review of Systems ROS: Stated complaint: WAYNE Other details as noted in HPI Constitutional: denies: chills, fever Eyes: denies: eye pain, eye discharge, vision change ENT: denies: ear pain, throat pain Respiratory: orthopnea, shortness of breath, SOB with exertion, SOB at rest. denies: cough, wheezing Cardiovascular: denies: chest pain, palpitations Endocrine: no symptoms reported Gastrointestinal: denies: abdominal pain, nausea, diarrhea Genitourinary: denies: urgency, dysuria Musculoskeletal: denies: back pain, joint swelling, arthralgia Skin: denies: rash, lesions Neurological: denies: headache, weakness, paresthesias Psychiatric: denies: anxiety, depression Hematological/Lymphatic: denies: easy bleeding, easy bruising Medications and Allergies Allergies Allergy/AdvReac Type Severity Reaction Status Date / Time No Known Allergies Allergy Verified 02/28/17 00:21 Home Medications Medication Instructions Recorded Confirmed Last Taken Type Rosuvastatin Calcium [Crestor] 20 mg PO QHS 07/03/17 03/11/18 1 Day Ago History ~03/10/18 Sevelamer Carbonate [Renvela] 2,400 mg PO TIDWM 07/03/17 03/11/18 1 Day Ago History ~03/10/18 Aspirin [Aspirin BABY CHEW TAB] 81 mg PO QDAY #30 tab.chew 07/05/17 03/11/18 1 Day Ago Rx ~03/10/18 B Complex 11/Folic/C/Biot/Zinc 1 each PO DAILY 02/13/18 03/11/18 1 Day Ago History [Dialyvite with Zinc Tablet] ~03/10/18 Ergocalciferol (Vitamin D2) 50,000 unit PO QWEEK 02/13/18 03/11/18 1 Day Ago History [Drisdol] ~03/10/18 Omeprazole 20 mg PO QDAY 02/13/18 03/11/18 1 Day Ago History ~03/10/18 ISOSORBIDE MONOnitrate [Imdur ER] 30 mg PO DAILY #30 tablet 02/14/18 03/11/18 1 Day Ago Rx ~03/10/18 Metoprolol [Lopressor TAB] 12.5 mg PO BID #30 tablet 02/14/18 03/11/18 1 Day Ago Rx ~03/10/18 amLODIPine [Norvasc] 10 mg PO DAILY #30 tablet 02/14/18 03/11/18 1 Day Ago Rx ~03/10/18 Active Meds: Active Medications Albumin Human (Alburx 25% (Albumin)) 12.5 gm IV JEANINE PRN PRN Reason: Hypotension Hydromorphone HCl (Dilaudid) 0.5 mg IV Q4H PRN PRN Reason: Pain , Severe (7-10) Last Admin: 03/11/18 21:23 Dose: 0.5 mg Documented by: Hydroxyzine HCl (Atarax) 25 mg PO Q6H PRN PRN Reason: Itching Last Admin: 03/11/18 21:23 Dose: 25 mg Documented by: Sodium Chloride (Nacl 0.9%) 100 mls @ 999 mls/hr IV JEANINE PRN PRN Reason: Hypotension Exam - Constitutional Vitals: Temp Pulse Resp BP Pulse Ox 98.3 F 77 17 147/82 96 03/11/18 20:37 03/11/18 20:37 03/11/18 20:37 03/11/18 20:37 03/11/18 20:37 General appearance: Present: mild distress, well-nourished - EENT Eyes: Present: PERRL ENT: hearing intact, clear oral mucosa - Neck Neck: Present: supple, normal ROM - Respiratory Respiratory effort: normal Respiratory: bilateral: CTA, rales - Cardiovascular Heart rate: 78 Rhythm: regular Heart Sounds: Present: S1 & S2. Absent: rub, click - Extremities Extremities: no ischemia, pulses intact, pulses symmetrical, No edema Peripheral Pulses: within normal limits - Abdominal General gastrointestinal: Present: soft, non-tender, non-distended, normal bowel sounds Male genitourinary: Present: normal - Integumentary Integumentary: Present: clear, warm, dry - Musculoskeletal Musculoskeletal: gait normal, strength equal bilaterally - Psychiatric Psychiatric: appropriate mood/affect, intact judgment & insight - Neurologic Neurologic: CNII-XII intact, moves all extremities - Allied Health Allied health notes reviewed: nursing, case management Results - Labs CBC & Chem 7: 03/11/18 10:37 03/11/18 10:37 Labs: Laboratory Last Values WBC 6.2 K/mm3 (4.5-11.0) 03/11/18 10:37 RBC 3.35 M/mm3 (3.65-5.03) L 03/11/18 10:37 Hgb 11.4 gm/dl (11.8-15.2) L 03/11/18 10:37 Hct 34.3 % (35.5-45.6) L 03/11/18 10:37 MCV 103 fl (84-94) H 03/11/18 10:37 MCH 34 pg (28-32) H 03/11/18 10:37 MCHC 33 % (32-34) 03/11/18 10:37 RDW 16.4 % (13.2-15.2) H 03/11/18 10:37 Plt Count 200 K/mm3 (140-440) 03/11/18 10:37 Lymph % (Auto) 18.2 % (13.4-35.0) 03/11/18 10:37 [place] % (Auto) 10.8 % (0.0-7.3) H 03/11/18 10:37 Eos % (Auto) 3.3 % (0.0-4.3) 03/11/18 10:37 Baso % (Auto) 0.3 % (0.0-1.8) 03/11/18 10:37 Lymph # 1.1 K/mm3 (1.2-5.4) L 03/11/18 10:37 [place] # 0.7 K/mm3 (0.0-0.8) 03/11/18 10:37 Eos # 0.2 K/mm3 (0.0-0.4) 03/11/18 10:37 Baso # 0.0 K/mm3 (0.0-0.1) 03/11/18 10:37 Seg Neutrophils % 67.4 % (40.0-70.0) 03/11/18 10:37 Seg Neutrophils # 4.2 K/mm3 (1.8-7.7) 03/11/18 10:37 Sodium 142 mmol/L (137-145) 03/11/18 10:37 Potassium 5.5 mmol/L (3.6-5.0) H 03/11/18 10:37 Chloride 100.3 mmol/L (98-107) 03/11/18 10:37 Carbon Dioxide 26 mmol/L (22-30) 03/11/18 10:37 Anion Gap 21 mmol/L 03/11/18 10:37 BUN 51 mg/dL (9-20) H 03/11/18 10:37 Creatinine 9.0 mg/dL (0.8-1.5) H 03/11/18 10:37 Estimated GFR 7 ml/min 03/11/18 10:37 BUN/Creatinine Ratio 6 % 03/11/18 10:37 Glucose 83 mg/dL (75-100) 03/11/18 10:37 POC Glucose 188 (70-105) H 03/11/18 21:39 Lactic Acid 0.80 mmol/L (0.7-2.0) 03/11/18 10:37 Calcium 9.1 mg/dL (8.4-10.2) 03/11/18 10:37 Total Bilirubin 0.30 mg/dL (0.1-1.2) 03/11/18 10:37 AST 15 units/L (5-40) 03/11/18 10:37 ALT 18 units/L (7-56) 03/11/18 10:37 Alkaline Phosphatase 94 units/L (35-129) 03/11/18 10:37 Troponin T 0.035 ng/mL (0.00-0.029) H 03/11/18 10:37 NT-Pro-B Natriuret Pep 9113 pg/mL (0-900) H 03/11/18 10:37 Total Protein 7.7 g/dL (6.3-8.2) 03/11/18 10:37 Albumin 4.1 g/dL (3.9-5) 03/11/18 10:37 Albumin/Globulin Ratio 1.1 % 03/11/18 10:37 Triglycerides 50 mg/dL (2-149) 03/11/18 10:37 Cholesterol 160 mg/dL (50-199) 03/11/18 10:37 LDL Cholesterol Direct 88 mg/dL (50-130) 03/11/18 10:37 HDL Cholesterol 79 mg/dL (40-59) H 03/11/18 10:37 Cholesterol/HDL Ratio 2.02 % 03/11/18 10:37 Short CBC 03/11/18 Range/Units 10:37 WBC 6.2 (4.5-11.0) K/mm3 Hgb 11.4 L (11.8-15.2) gm/dl Hct 34.3 L (35.5-45.6) % Plt Count 200 (140-440) K/mm3 BMP 03/11/18 10:37 Sodium 142 Potassium 5.5 H Chloride 100.3 Carbon Dioxide 26 BUN 51 H Creatinine 9.0 H Glucose 83 Calcium 9.1 Cardiac Enzymes 03/11/18 Range/Units 10:37 Troponin T 0.035 H (0.00-0.029) ng/mL Liver Function 03/11/18 Range/Units 10:37 Total Bilirubin 0.30 (0.1-1.2) mg/dL AST 15 (5-40) units/L ALT 18 (7-56) units/L Alkaline Phosphatase 94 (35-129) units/L Albumin 4.1 (3.9-5) g/dL - Imaging and Cardiology EKG: report reviewed (normal sinus rhythm 80 per minute) Chest x-ray: report reviewed Imaging and Cardiology: Chest x-ray Borderline heart size and pulmonary vessels appear stable since 02/13/18. The subtle opacity at the left lung base has resolved. No evidence for pneumonia, large pleural effusion or pneumothorax. The bony thorax is grossly intact. IMPRESSION: Borderline heart size and pulmonary vessels. 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 (3) Hypertension Current Visit: Yes Status: Chronic Qualifiers: Hypertension type: essential hypertension Qualified Code(s): I10 - Essential (primary) hypertension Plan to address problem: Continue antihypertensives (4) Hyperlipidemia Current Visit: Yes Status: Chronic Qualifiers: Hyperlipidemia type: mixed hyperlipidemia Qualified Code(s): E78.2 - Mixed hyperlipidemia Plan to address problem: Continue statins (5) Hyperkalemia Current Visit: Yes Status: Acute Plan to address problem: Treated in the emergency room (6) DVT prophylaxis Current Visit: Yes Status: Acute Plan to address problem: On heparin and GI prophylaxis
[2018-03-12] MEDS ORDERED: SODIUM CHLORIDE FLUSH SYRINGE 10 ML IV PRN (01:19)
[2018-03-12] MEDS ORDERED: ZOFRAN IV PRN (01:19)
[2018-03-12] MEDS ORDERED: TYLENOL PO PRN (01:19)
--- NOTE | 2018-03-12 08:19 | Consultation ---
History of Present Illness - Reason for Consult Consult date: 03/12/18 end stage renal disease - History of Present Illness Very pleasant 62-year-old -Turkmen male with a past medical history of end-stage renal disease in the setting of diabetes and hypertension who presented to the emergency department secondary to worsening abdominal distention and dyspnea on exertion. He also has a history of alcoholic induced liver cirrhosis. Patient states that this abdominal distention and swelling has been getting worse over the past 2-3 weeks. He denies any significant lower extremity edema. He denies any missed dialysis sessions recently. Patient was dialyzed yesterday here in the hospital and we were able to obtain ultrafiltration of 2 L. He tolerated dialysis well without any issues. He seems to have had issues with recent intradialytic hypotension. He is currently on a Friday outpatient dialysis schedule. He is dialyzed via a left upper extremity AV fistula. Past History Past Medical History: diabetes, dialysis, hypertension, hyperlipidemia, liver disease, renal failure Past Surgical History: Other (AV fistula creation) Social history: alcohol abuse (previous history of alcohol abuse) Family history: diabetes, hypertension Medications and Allergies Allergies Allergy/AdvReac Type Severity Reaction Status Date / Time No Known Allergies Allergy Verified 02/28/17 00:21 Home Medications Medication Instructions Recorded Confirmed Last Taken Type Rosuvastatin Calcium [Crestor] 20 mg PO QHS 07/03/17 03/11/18 1 Day Ago History ~03/10/18 Sevelamer Carbonate [Renvela] 2,400 mg PO TIDWM 07/03/17 03/11/18 1 Day Ago History ~03/10/18 Aspirin [Aspirin BABY CHEW TAB] 81 mg PO QDAY #30 tab.chew 07/05/17 03/11/18 1 Day Ago Rx ~03/10/18 B Complex 11/Folic/C/Biot/Zinc 1 each PO DAILY 02/13/18 03/11/18 1 Day Ago History [Dialyvite with Zinc Tablet] ~03/10/18 Ergocalciferol (Vitamin D2) 50,000 unit PO QWEEK 02/13/18 03/11/18 1 Day Ago History [Drisdol] ~03/10/18 Omeprazole 20 mg PO QDAY 02/13/18 03/11/18 1 Day Ago History ~03/10/18 ISOSORBIDE MONOnitrate [Imdur ER] 30 mg PO DAILY #30 tablet 02/14/18 03/11/18 1 Day Ago Rx ~03/10/18 Metoprolol [Lopressor TAB] 12.5 mg PO BID #30 tablet 02/14/18 03/11/18 1 Day Ago Rx ~03/10/18 amLODIPine [Norvasc] 10 mg PO DAILY #30 tablet 02/14/18 03/11/18 1 Day Ago Rx ~03/10/18 Active Meds: Active Medications Acetaminophen (Tylenol) 650 mg PO Q4H PRN PRN Reason: Pain MILD(1-3)/Fever >100.5/SAEED Albumin Human (Alburx 25% (Albumin)) 12.5 gm IV JEANINE PRN PRN Reason: Hypotension Famotidine (Pepcid) 10 mg PO BID GORDO Hydromorphone HCl (Dilaudid) 0.5 mg IV Q4H PRN PRN Reason: Pain , Severe (7-10) Last Admin: 03/11/18 21:23 Dose: 0.5 mg Documented by: Hydroxyzine HCl (Atarax) 25 mg PO Q6H PRN PRN Reason: Itching Last Admin: 03/11/18 21:23 Dose: 25 mg Documented by: Sodium Chloride (Nacl 0.9%) 100 mls @ 999 mls/hr IV JEANINE PRN PRN Reason: Hypotension Ondansetron HCl (Zofran) 4 mg IV Q8H PRN PRN Reason: Nausea And Vomiting Oxycodone/Acetaminophen (Percocet 5/325) 1 tab PO Q6H PRN PRN Reason: Pain, Moderate (4-6) Sodium Chloride (Sodium Chloride Flush Syringe 10 Ml) 10 ml IV BID GORDO Sodium Chloride (Sodium Chloride Flush Syringe 10 Ml) 10 ml IV PRN PRN PRN Reason: LINE FLUSH Review of Systems All systems: negative Constitutional: fatigue, weakness Gastrointestinal: abdominal pain, other (abdominal distention and swelling) Exam - Vital Signs Vital signs: Vital Signs Resp Pulse Ox 23 88 03/11/18 08:45 03/11/18 08:45 - General Appearance General appearance: well-developed, well-nourished, appears stated age EENT: ATNC, PERRL Neck: Present: neck supple, trachea midline Respiratory: Clear to Ascultation, Normal Exam Heart: regular, normal heart rate, S1S2 Gastrointestinal: Present: normal, normoactive bowel sounds, distended, hepatomegaly Integumentary: no rash, warm and dry Neurologic: no focal deficit, no asterixis, alert and oriented x3 Musculoskeletal: Present: other (no edema in his bilateral lower extremities) Psychiatric: mood/affect appropriate, cooperative Results - Lab Results 03/11/18 10:37 03/11/18 10:37 Most recent lab results Calcium 9.1 mg/dL (8.4-10.2) 03/11/18 10:37 Assessment and Plan - Patient Problems (1) ESRD (end stage renal disease) Current Visit: Yes Status: Chronic Plan to address problem: Maintain patient on Friday inpatient schedule for hemodialysis. Labs are pending this morning. Anticipate that with no significant acute lab abnormalities that his next dialysis will be tomorrow. (2) Hyperkalemia Current Visit: Yes Status: Acute Plan to address problem: Patient was run on a 2K dialysate bath. Please ensure the patient is on a low potassium diet. (3) Abdominal distention Current Visit: Yes Status: Acute Plan to address problem: Would consider evaluation for abdominal paracentesis as his abdominal distention has gotten worse. No improvement noted with ultrafiltration and dialysis. (4) Acute respiratory failure with hypoxia Current Visit: Yes Status: Acute Plan to address problem: Overall respiratory status is stable at this time. He is on room air. We were able to ultrafiltrate 2 L during his dialysis session yesterday. Will optimize his dry weight during future dialysis sessions. (5) Type 2 diabetes mellitus with diabetic chronic kidney disease Current Visit: Yes Status: Chronic Qualifiers: Chronic kidney disease stage: on chronic dialysis Plan to address problem: Diabetes management per primary team. (6) Secondary hyperparathyroidism Current Visit: Yes Status: Chronic Plan to address problem: Favor to restart his home medications for phosphate binders.
[2018-03-12] MEDS: PEPCID PO SCH ×2 (09:48→22:07)
[2018-03-12] MEDS: ATARAX PO PRN ×2 (09:48→22:07)
[2018-03-12] MEDS: SODIUM CHLORIDE FLUSH SYRINGE 10 ML IV SCH ×2 (18:35→22:09)
--- NOTE | 2018-03-12 18:59 | Progress Note ---
Assessment and Plan Assessment and plan: Patient is a 62 yo man with ESRD on HD MWF, hypertension, Type 2 DM, Dylipidemia, GERD, CAD s/p stent and CVA who presented to [facility] ED with increasing shortness of breath for 2 days -SOB most likely from volume overload from Ascites: therapeutic and diagnostic paracentesis, empire treat with abx, consulted GI -ESRD on hemodialysis; consulted Nephrology, renal diet -Hyperkalemia: kayexalate and dialysis, monitor closely -Type 2 DM: use SSI for now History Interval history: Patient seen and examined. Follow up chief complaint: abd distension with sob Hospitalist Physical - Physical exam Narrative exam: Gen: ill appearing, thin frial, NAD, Awake, Alert, Orientated HEENT: NCAT, EOMI, PERRL, OP Clear Neck: supple, no adenopathy, no thyromegaly, no JVD CVS/Heart: RRR, normal S1S2, pulses present bilaterally Chest/Lungs: diminished bs bilaterally, Symmetrical chest expansion, good air entry bilaterally GI/Abdomen: distended, nontender, fluid wave, good bowel sounds, no guarding or rebound /Bladder: no suprapubic tenderness, no CVA or paraspinal tenderness Extermity/Skin: extremities edema flanks, legs, thighs, no obvious rash MSK: FROM x 4 Neuro: CN 2-12 grossly intact, no new focal deficits Psych: calm - Constitutional Vitals: Temp Pulse Resp BP Pulse Ox 98.5 F 80 18 170/98 99 03/12/18 15:12 03/12/18 15:12 03/12/18 15:12 03/12/18 15:12 03/12/18 15:12 Results - Labs CBC & Chem 7: 03/13/18 04:30 03/13/18 04:30 Labs: Laboratory Last Values WBC 6.2 K/mm3 (4.5-11.0) 03/11/18 10:37 RBC 3.35 M/mm3 (3.65-5.03) L 03/11/18 10:37 Hgb 11.4 gm/dl (11.8-15.2) L 03/11/18 10:37 Hct 34.3 % (35.5-45.6) L 03/11/18 10:37 MCV 103 fl (84-94) H 03/11/18 10:37 MCH 34 pg (28-32) H 03/11/18 10:37 MCHC 33 % (32-34) 03/11/18 10:37 RDW 16.4 % (13.2-15.2) H 03/11/18 10:37 Plt Count 200 K/mm3 (140-440) 03/11/18 10:37 Lymph % (Auto) 18.2 % (13.4-35.0) 03/11/18 10:37 [place] % (Auto) 10.8 % (0.0-7.3) H 03/11/18 10:37 Eos % (Auto) 3.3 % (0.0-4.3) 03/11/18 10:37 Baso % (Auto) 0.3 % (0.0-1.8) 03/11/18 10:37 Lymph # 1.1 K/mm3 (1.2-5.4) L 03/11/18 10:37 [place] # 0.7 K/mm3 (0.0-0.8) 03/11/18 10:37 Eos # 0.2 K/mm3 (0.0-0.4) 03/11/18 10:37 Baso # 0.0 K/mm3 (0.0-0.1) 03/11/18 10:37 Seg Neutrophils % 67.4 % (40.0-70.0) 03/11/18 10:37 Seg Neutrophils # 4.2 K/mm3 (1.8-7.7) 03/11/18 10:37 Sodium 142 mmol/L (137-145) 03/11/18 10:37 Potassium 5.5 mmol/L (3.6-5.0) H 03/11/18 10:37 Chloride 100.3 mmol/L (98-107) 03/11/18 10:37 Carbon Dioxide 26 mmol/L (22-30) 03/11/18 10:37 Anion Gap 21 mmol/L 03/11/18 10:37 BUN 51 mg/dL (9-20) H 03/11/18 10:37 Creatinine 9.0 mg/dL (0.8-1.5) H 03/11/18 10:37 Estimated GFR 7 ml/min 03/11/18 10:37 BUN/Creatinine Ratio 6 % 03/11/18 10:37 Glucose 83 mg/dL (75-100) 03/11/18 10:37 POC Glucose 188 (70-105) H 03/11/18 21:39 Lactic Acid 0.80 mmol/L (0.7-2.0) 03/11/18 10:37 Calcium 9.1 mg/dL (8.4-10.2) 03/11/18 10:37 Total Bilirubin 0.30 mg/dL (0.1-1.2) 03/11/18 10:37 AST 15 units/L (5-40) 03/11/18 10:37 ALT 18 units/L (7-56) 03/11/18 10:37 Alkaline Phosphatase 94 units/L (35-129) 03/11/18 10:37 Troponin T 0.035 ng/mL (0.00-0.029) H 03/11/18 10:37 NT-Pro-B Natriuret Pep 9113 pg/mL (0-900) H 03/11/18 10:37 Total Protein 7.7 g/dL (6.3-8.2) 03/11/18 10:37 Albumin 4.1 g/dL (3.9-5) 03/11/18 10:37 Albumin/Globulin Ratio 1.1 % 03/11/18 10:37 Triglycerides 50 mg/dL (2-149) 03/11/18 10:37 Cholesterol 160 mg/dL (50-199) 03/11/18 10:37 LDL Cholesterol Direct 88 mg/dL (50-130) 03/11/18 10:37 HDL Cholesterol 79 mg/dL (40-59) H 03/11/18 10:37 Cholesterol/HDL Ratio 2.02 % 03/11/18 10:37
[2018-03-12 21:37] LABS: Hepatitis B Surface Antigen Non-Reactive (Negative); Hepatitis C Virus Antibody Non-Reactive (NonReactive)
[2018-03-12] MEDS: PERCOCET 5/325 PO PRN (22:07)
[2018-03-12] MEDS: FLAGYL 500 MG/100 ML 500 MG/100 ML BAG IV SCH (22:07)
[2018-03-12] MEDS: ROCEPHIN/NS 1 GM/50 ML 1 GM/50 ML BAG IV SCH (22:23)
[2018-03-13] MEDS ORDERED: APRESOLINE IV PRN (01:44)
[2018-03-13] MEDS: FLAGYL 500 MG/100 ML 500 MG/100 ML BAG IV SCH ×2 (05:13→18:10)
[2018-03-13 05:40] LABS: Hematocrit 35.3 % (35.5-45.6); Hemoglobin 11.6 gm/dl (11.8-15.2); Mean Corpuscular HGB Conc 33 % (32-34); Mean Corpuscular Volume 103 fl (84-94); Platelet Count 204 K/mm3 (140-440); Red Blood Count 3.44 M/mm3 (3.65-5.03); Red Cell Distribution Width 16.4 % (13.2-15.2)
[2018-03-13 06:04] LABS: Albumin 3.8 g/dL (3.9-5)
[2018-03-13] MEDS ORDERED: D50W (25GM) Syringe IV NR (06:56)
[2018-03-13 08:10] LABS: Total Cells Counted 100
[2018-03-13 08:11] LABS: Anisocytosis 1+; Ovalocytes Few; Platelet Estimate Consistent w Auto; Poikilocytosis 1+
--- NOTE | 2018-03-13 08:16 | Progress Note ---
Assessment and Plan - Patient Problems (1) ESRD (end stage renal disease) Current Visit: Yes Status: Chronic Plan to address problem: Maintain patient on Friday inpatient schedule for hemodialysis. Labs noted this morning. (2) Hyperkalemia Current Visit: Yes Status: Acute Plan to address problem: Patient was run on a 2K dialysate bath. Please ensure the patient is on a low potassium diet. (3) Abdominal distention Current Visit: Yes Status: Acute Plan to address problem: Would consider evaluation for abdominal paracentesis as his abdominal distention has gotten worse. No improvement noted with ultrafiltration and dialysis. Plan for paracentesis today. (4) Hypertensive chronic kidney disease with stage 5 chronic kidney disease or end stage renal disease Current Visit: Yes Status: Acute Plan to address problem: Added patient back on amlodipine and switch home metoprolol to carvedilol. Will continue to monitor. (5) Acute respiratory failure with hypoxia Current Visit: Yes Status: Acute Plan to address problem: Overall respiratory status is stable at this time. He is on room air. We were able to ultrafiltrate 2 L during his dialysis session on Friday. Will optimize his dry weight during future dialysis sessions. (6) Type 2 diabetes mellitus with diabetic chronic kidney disease Current Visit: Yes Status: Chronic Qualifiers: Chronic kidney disease stage: on chronic dialysis Plan to address problem: Diabetes management per primary team. (7) Secondary hyperparathyroidism Current Visit: Yes Status: Chronic Plan to address problem: Favor to restart his home medications for phosphate binders. Subjective Date of service: 03/13/18 Interval history: Plan for therapeutic and diagnostic paracentesis today. Patient scheduled for HD today. Elevated blood pressures noted. Will add him back on his home antihypertensives. His home medication list indicates that he is on amlodipine and metoprolol. Will switch metoprolol to carvedilol. Objective - Vital Signs Vital signs: Vital Signs - 12hr 03/12/18 03/12/18 03/13/18 21:00 21:27 01:21 Temperature 97.8 F 98.3 F Pulse Rate 80 73 77 Pulse Rate [ Left Posterior Tibial] Pulse Rate [ Left Radial] Pulse Rate [ Right Posterior Tibial] Pulse Rate [ Right Radial] Respiratory 17 17 Rate Blood Pressure 162/84 165/90 O2 Sat by Pulse 96 99 Oximetry 03/13/18 03/13/18 03/13/18 06:32 06:43 07:40 Temperature 98.0 F 98.3 F Pulse Rate 71 71 81 Pulse Rate [ Left Posterior Tibial] Pulse Rate [ Left Radial] Pulse Rate [ Right Posterior Tibial] Pulse Rate [ Right Radial] Respiratory 17 18 Rate Blood Pressure 179/93 179/93 173/91 O2 Sat by Pulse 99 98 Oximetry 03/13/18 08:04 Temperature Pulse Rate Pulse Rate [ 74 Left Posterior Tibial] Pulse Rate [ 74 Left Radial] Pulse Rate [ 74 Right Posterior Tibial] Pulse Rate [ 74 Right Radial] Respiratory 16 Rate Blood Pressure O2 Sat by Pulse 96 Oximetry - General Appearance General appearance: well-developed, well-nourished, appears stated age EENT: ATNC, PERRL Neck: no JVD, no thyromegaly Respiratory: Present: Clear to Ascultation, Normal Exam Cardiology: regular, S1S2 Gastrointestinal: normal, normoactive bowel sounds, distended Integumentary: no rash, warm and dry Neurologic: no focal deficit, no asterixis Musculoskeletal: other (-edema ) Psychiatric: mood/affect appropriate, cooperative - Lab 03/13/18 04:30 03/13/18 04:30 Most recent lab results Calcium 9.0 mg/dL (8.4-10.2) 03/13/18 04:30 - Allied health notes Allied health notes reviewed: nursing Medications & Allergies - Medications Allergies/Adverse Reactions: Allergies No Known Allergies Allergy (Verified 02/28/17 00:21) Home Medications: Home Medications Medication Instructions Recorded Confirmed Last Taken Type Rosuvastatin Calcium [Crestor] 20 mg PO QHS 07/03/17 03/11/18 1 Day Ago History ~03/10/18 Sevelamer Carbonate [Renvela] 2,400 mg PO TIDWM 07/03/17 03/11/18 1 Day Ago History ~03/10/18 Aspirin [Aspirin BABY CHEW TAB] 81 mg PO QDAY #30 tab.chew 07/05/17 03/11/18 1 Day Ago Rx ~03/10/18 B Complex 11/Folic/C/Biot/Zinc 1 each PO DAILY 02/13/18 03/11/18 1 Day Ago History [Dialyvite with Zinc Tablet] ~03/10/18 Ergocalciferol (Vitamin D2) 50,000 unit PO QWEEK 02/13/18 03/11/18 1 Day Ago History [Drisdol] ~03/10/18 Omeprazole 20 mg PO QDAY 02/13/18 03/11/18 1 Day Ago History ~03/10/18 ISOSORBIDE MONOnitrate [Imdur ER] 30 mg PO DAILY #30 tablet 02/14/18 03/11/18 1 Day Ago Rx ~03/10/18 Metoprolol [Lopressor TAB] 12.5 mg PO BID #30 tablet 02/14/18 03/11/18 1 Day Ago Rx ~03/10/18 amLODIPine [Norvasc] 10 mg PO DAILY #30 tablet 02/14/18 03/11/18 1 Day Ago Rx ~03/10/18 Active Medications: Generic Name Dose Route Start Last Admin Trade Name Freq PRN Reason Stop Dose Admin Acetaminophen 650 mg 03/12/18 01: Tylenol PO Q4H PRN Pain MILD(1-3)/Fever >100.5/SAEED Albumin Human 12.5 gm 03/11/18 13:07 Alburx 25% (Albumin) IV JEANINE PRN Hypotension Amlodipine Besylate 10 mg 03/13/18 10:00 Norvasc PO QDAY GORDO Carvedilol 6.25 mg 03/13/18 10:00 Coreg PO BID GORDO Famotidine 10 mg 03/12/18 10:00 03/12/18 22:07 Pepcid PO 10 mg BID GORDO Administration Hydralazine HCl 5 mg 03/13/18 01:44 03/13/18 06:43 Apresoline IV 5 mg Q6HR PRN Administration Hypertension Hydromorphone HCl 0.5 mg 03/11/18 20:56 03/11/18 21:23 Dilaudid IV 0.5 mg Q4H PRN Administration Pain , Severe (7-10) Hydroxyzine HCl 25 mg 03/11/18 20:54 03/12/18 22:07 Atarax PO 25 mg Q6H PRN Administration Itching Sodium Chloride 100 mls @ 999 mls/hr 03/11/18 13:07 Nacl 0.9% IV JEANINE PRN Hypotension Ceftriaxone Sodium 1 gm in 50 mls @ 100 mls/hr 03/12/18 20:00 03/12/18 22:23 Rocephin/Ns 1 Gm/50 Ml IV 100 mls/hr Q24HR GORDO Administration Protocol Metronidazole 500 mg in 100 mls @ 100 mls/hr 03/12/18 22:00 03/13/18 05:13 Flagyl 500 Mg/100 Ml IV 100 mls/hr Q8HR GORDO Administration Protocol Ondansetron HCl 4 mg 03/12/18 01:19 Zofran IV Q8H PRN Nausea And Vomiting Oxycodone/Acetaminophen 1 tab 03/12/18 01:19 03/12/18 22:07 Percocet 5/325 PO 1 tab Q6H PRN Administration Pain, Moderate (4-6) Sodium Chloride 10 ml 03/12/18 10:00 03/12/18 22:09 Sodium Chloride Flush Syringe 10 Ml IV 10 ml BID GORDO Administration Sodium Chloride 10 ml 03/12/18 01:19 Sodium Chloride Flush Syringe 10 Ml IV PRN PRN LINE FLUSH
--- NOTE | 2018-03-13 08:43 | Progress Note ---
Assessment and Plan Assessment and plan: Patient is a 62 yo man with ESRD on HD MWF, hypertension, Type 2 DM, Dylipidemia, GERD, CAD s/p stent and CVA who presented to [facility] ED with increasing shortness of breath for 2 days -SOB most likely from volume overload from Ascites: therapeutic and diagnostic paracentesis, empire treat with abx, consulted GI -ESRD on hemodialysis; consulted Nephrology, renal diet -Hyperkalemia, dialysis will help, resolved monitor closely -Type 2 DM: use SSI for now -Hypoglycemia: give IV dextrose History Interval history: Patient seen and examined. Follow up chief complaint: abd distension with sob. Still has sob and wants fluid taking off abdomen. Hospitalist Physical - Physical exam Narrative exam: Gen: ill appearing, thin frial, NAD, Awake, Alert, Orientated HEENT: NCAT, EOMI, PERRL, OP Clear Neck: supple, no adenopathy, no thyromegaly, no JVD CVS/Heart: RRR, normal S1S2, pulses present bilaterally Chest/Lungs: diminished bs bilaterally, Symmetrical chest expansion, good air entry bilaterally GI/Abdomen: distended, nontender, fluid wave, good bowel sounds, no guarding or rebound /Bladder: no suprapubic tenderness, no CVA or paraspinal tenderness Extermity/Skin: extremities edema flanks, legs, thighs, no obvious rash MSK: FROM x 4 Neuro: CN 2-12 grossly intact, no new focal deficits Psych: calm - Constitutional Vitals: Temp Pulse Resp BP Pulse Ox 98.3 F 74 16 173/91 96 03/13/18 07:40 03/13/18 08:04 03/13/18 08:04 03/13/18 07:40 03/13/18 08:04 General appearance: Present: well-nourished Results - Labs CBC & Chem 7: 03/13/18 04:30 03/13/18 04:30 Labs: Laboratory Last Values WBC 4.2 K/mm3 (4.5-11.0) L 03/13/18 04:30 RBC 3.44 M/mm3 (3.65-5.03) L 03/13/18 04:30 Hgb 11.6 gm/dl (11.8-15.2) L 03/13/18 04:30 Hct 35.3 % (35.5-45.6) L 03/13/18 04:30 MCV 103 fl (84-94) H 03/13/18 04:30 MCH 34 pg (28-32) H 03/13/18 04:30 MCHC 33 % (32-34) 03/13/18 04:30 RDW 16.4 % (13.2-15.2) H 03/13/18 04:30 Plt Count 204 K/mm3 (140-440) 03/13/18 04:30 Lymph % (Auto) 18.2 % (13.4-35.0) 03/11/18 10:37 [place] % (Auto) Marketing Finance Manager 03/13/18 04:30 Eos % (Auto) 3.3 % (0.0-4.3) 03/11/18 10:37 Baso % (Auto) 0.3 % (0.0-1.8) 03/11/18 10:37 Lymph # 1.1 K/mm3 (1.2-5.4) L 03/11/18 10:37 [place] # 0.7 K/mm3 (0.0-0.8) 03/11/18 10:37 Eos # 0.2 K/mm3 (0.0-0.4) 03/11/18 10:37 Baso # 0.0 K/mm3 (0.0-0.1) 03/11/18 10:37 Add Manual Diff Complete 03/13/18 04:30 Total Counted 100 03/13/18 04:30 Seg Neutrophils % 67.4 % (40.0-70.0) 03/11/18 10:37 Seg Neuts % (Manual) 47.0 % (40.0-70.0) 03/13/18 04:30 Band Neutrophils % 0 % 03/13/18 04:30 Lymphocytes % (Manual) 26.0 % (13.4-35.0) 03/13/18 04:30 Reactive Lymphs % (Man) 0 % 03/13/18 04:30 Monocytes % (Manual) 18.0 % (0.0-7.3) H 03/13/18 04:30 Eosinophils % (Manual) 7.0 % (0.0-4.3) H 03/13/18 04:30 Basophils % (Manual) 2.0 % (0.0-1.8) H 03/13/18 04:30 Metamyelocytes % 0 % 03/13/18 04:30 Myelocytes % 0 % 03/13/18 04:30 Promyelocytes % 0 % 03/13/18 04:30 Blast Cells % 0 % 03/13/18 04:30 Nucleated RBC % Not Reportable 03/13/18 04:30 Seg Neutrophils # 4.2 K/mm3 (1.8-7.7) 03/11/18 10:37 Seg Neutrophils # Man 2.0 K/mm3 (1.8-7.7) 03/13/18 04:30 Band Neutrophils # 0.0 K/mm3 03/13/18 04:30 Lymphocytes # (Manual) 1.1 K/mm3 (1.2-5.4) L 03/13/18 04:30 Abs React Lymphs (Man) 0.0 K/mm3 03/13/18 04:30 Monocytes # (Manual) 0.8 K/mm3 (0.0-0.8) 03/13/18 04:30 Eosinophils # (Manual) 0.3 K/mm3 (0.0-0.4) 03/13/18 04:30 Basophils # (Manual) 0.1 K/mm3 (0.0-0.1) 03/13/18 04:30 Metamyelocytes # 0.0 K/mm3 03/13/18 04:30 Myelocytes # 0.0 K/mm3 03/13/18 04:30 Promyelocytes # 0.0 K/mm3 03/13/18 04:30 Blast Cells # 0.0 K/mm3 03/13/18 04:30 WBC Morphology Not Reportable 03/13/18 04:30 Hypersegmented Neuts Not Reportable 03/13/18 04:30 Hyposegmented Neuts Not Reportable 03/13/18 04:30 Hypogranular Neuts Not Reportable 03/13/18 04:30 Smudge Cells Not Reportable 03/13/18 04:30 Toxic Granulation Not Reportable 03/13/18 04:30 Toxic Vacuolation Not Reportable 03/13/18 04:30 Dohle Bodies Not Reportable 03/13/18 04:30 Pelger-Huet Anomaly Not Reportable 03/13/18 04:30 Libby Rods Not Reportable 03/13/18 04:30 Platelet Estimate Consistent w auto 03/13/18 04:30 Clumped Platelets Not Reportable 03/13/18 04:30 Plt Clumps, EDTA Not Reportable 03/13/18 04:30 Large Platelets Not Reportable 03/13/18 04:30 Giant Platelets Not Reportable 03/13/18 04:30 Platelet Satelliting Not Reportable 03/13/18 04:30 Plt Morphology Comment Not Reportable 03/13/18 04:30 RBC Morphology Not Reportable 03/13/18 04:30 Dimorphic RBCs Not Reportable 03/13/18 04:30 Polychromasia Not Reportable 03/13/18 04:30 Hypochromasia Not Reportable 03/13/18 04:30 Poikilocytosis 1+ 03/13/18 04:30 Anisocytosis 1+ 03/13/18 04:30 Microcytosis Few 03/13/18 04:30 Macrocytosis Not Reportable 03/13/18 04:30 Spherocytes Not Reportable 03/13/18 04:30 Pappenheimer Bodies Not Reportable 03/13/18 04:30 Sickle Cells Not Reportable 03/13/18 04:30 Target Cells Not Reportable 03/13/18 04:30 Tear Drop Cells Not Reportable 03/13/18 04:30 Ovalocytes Few 03/13/18 04:30 Helmet Cells Not Reportable 03/13/18 04:30 [place] Bodies Not Reportable 03/13/18 04:30 [place] Rings Not Reportable 03/13/18 04:30 [place] Cells Not Reportable 03/13/18 04:30 Bite Cells Not Reportable 03/13/18 04:30 Crenated Cell Not Reportable 03/13/18 04:30 Elliptocytes Not Reportable 03/13/18 04:30 Acanthocytes (Spur) Not Reportable 03/13/18 04:30 Rouleaux Not Reportable 03/13/18 04:30 Hemoglobin C Crystals Not Reportable 03/13/18 04:30 Schistocytes Not Reportable 03/13/18 04:30 Malaria parasites Not Reportable 03/13/18 04:30 Ted Bodies Not Reportable 03/13/18 04:30 Hem Pathologist Commnt No 03/13/18 04:30 Sodium 139 mmol/L (137-145) 03/13/18 04:30 Potassium 5.2 mmol/L (3.6-5.0) H 03/13/18 04:30 Chloride 98.6 mmol/L (98-107) 03/13/18 04:30 Carbon Dioxide 28 mmol/L (22-30) 03/13/18 04:30 Anion Gap 18 mmol/L 03/13/18 04:30 BUN 45 mg/dL (9-20) H 03/13/18 04:30 Creatinine 8.3 mg/dL (0.8-1.5) H 03/13/18 04:30 Estimated GFR 8 ml/min 03/13/18 04:30 BUN/Creatinine Ratio 5 % 03/13/18 04:30 Glucose 79 mg/dL (75-100) 03/13/18 04:30 POC Glucose 60 (70-105) L 03/13/18 06:35 Lactic Acid 0.80 mmol/L (0.7-2.0) 03/11/18 10:37 Calcium 9.0 mg/dL (8.4-10.2) 03/13/18 04:30 Total Bilirubin 0.30 mg/dL (0.1-1.2) 03/13/18 04:30 AST 14 units/L (5-40) 03/13/18 04:30 ALT 16 units/L (7-56) 03/13/18 04:30 Alkaline Phosphatase 92 units/L (35-129) 03/13/18 04:30 Troponin T 0.035 ng/mL (0.00-0.029) H 03/11/18 10:37 NT-Pro-B Natriuret Pep 9113 pg/mL (0-900) H 03/11/18 10:37 Total Protein 7.7 g/dL (6.3-8.2) 03/13/18 04:30 Albumin 3.8 g/dL (3.9-5) L 03/13/18 04:30 Albumin/Globulin Ratio 1.0 % 03/13/18 04:30 Triglycerides 50 mg/dL (2-149) 03/11/18 10:37 Cholesterol 160 mg/dL (50-199) 03/11/18 10:37 LDL Cholesterol Direct 88 mg/dL (50-130) 03/11/18 10:37 HDL Cholesterol 79 mg/dL (40-59) H 03/11/18 10:37 Cholesterol/HDL Ratio 2.02 % 03/11/18 10:37 Hepatitis A IgM Ab Non-reactive (NonReactive) 03/12/18 20:06 Hep Bs Antigen Non-reactive (Negative) 03/12/18 20:06 Hep B Core IgM Ab Non-reactive (NonReactive) 03/12/18 20:06 Hepatitis C Antibody Non-reactive (NonReactive) 03/12/18 20:06
[2018-03-13 09:25] LABS: INR 1.29 (0.87-1.13)
[2018-03-13 09:26] LABS: Partial Thromboplastin Time 34.2 Sec. (24.2-36.6)
--- NOTE | 2018-03-13 10:06 | Gastroenterology Consultation ---
Addendum entered and electronically signed by THOM PIERRE MD 03/13/18 18:16: pt seen and examined, chart reviewed, consult below reviewed - pt h/o ersd on dialysis presents for abdominal distension. Reports vague h/o cirrhosis years ago but unsure - reports that abdomen has been like this for >3 weeks vss p.e.: nad abd: distended w/o obvious fluid wave - ultrasound and consider paracenthesis based on results - will review previous chart - unsure if ascites and if present related to underlying liver disease - other rec as outlined - will follow Original Note: History of Present Illness - Reason for Consult Consult date: 03/13/18 ascites?, evaluate for liver disease Requesting physician: ANTON DEWEY - History of Present Illness Patient is a 62 y/o male with PMH of ESRD on HD, HTN, DM, dyslipidemia, GED, CAD (s/p stent), CHF, and CVA who presented to ED with c/o SOB and was admitted for volume overload. GI has been consulted for ascites. This morning patient was resting in bed w/o acute distress. He c/o abdominal distention with continued mild SOB. Denies fever, CP, abd pain, N/V, jaundice, signs of bleeding, or LGI symptoms. Currently no abd imaging (ascites?) and LFTs WNL upon admission. He reports being told over 30 yrs ago that he had a liver issue (cirrhosis?) 2/2 heavy alcohol use at that time but quit drinking alcohol 7 years ago and has know recurrent problems/treatment/management. No hx of hepatitis or IV drug use. No Fhx of liver disease. Past History Past Medical History: diabetes, dialysis, hypertension, hyperlipidemia, liver disease, renal failure Past Surgical History: Other (AV fistula creation) Social history: alcohol abuse (previous history of alcohol abuse (quit 7 years ago)) Family history: diabetes, hypertension Medications and Allergies Allergies Allergy/AdvReac Type Severity Reaction Status Date / Time No Known Allergies Allergy Verified 02/28/17 00:21 Home Medications Medication Instructions Recorded Confirmed Last Taken Type Rosuvastatin Calcium [Crestor] 20 mg PO QHS 07/03/17 03/11/18 1 Day Ago History ~03/10/18 Sevelamer Carbonate [Renvela] 2,400 mg PO TIDWM 07/03/17 03/11/18 1 Day Ago History ~03/10/18 Aspirin [Aspirin BABY CHEW TAB] 81 mg PO QDAY #30 tab.chew 07/05/17 03/11/18 1 Day Ago Rx ~03/10/18 B Complex 11/Folic/C/Biot/Zinc 1 each PO DAILY 02/13/18 03/11/18 1 Day Ago History [Dialyvite with Zinc Tablet] ~03/10/18 Ergocalciferol (Vitamin D2) 50,000 unit PO QWEEK 02/13/18 03/11/18 1 Day Ago History [Drisdol] ~03/10/18 Omeprazole 20 mg PO QDAY 02/13/18 03/11/18 1 Day Ago History ~03/10/18 ISOSORBIDE MONOnitrate [Imdur ER] 30 mg PO DAILY #30 tablet 02/14/18 03/11/18 1 Day Ago Rx ~03/10/18 Metoprolol [Lopressor TAB] 12.5 mg PO BID #30 tablet 02/14/18 03/11/18 1 Day Ago Rx ~03/10/18 amLODIPine [Norvasc] 10 mg PO DAILY #30 tablet 02/14/18 03/11/18 1 Day Ago Rx ~03/10/18 Active Meds: Active Medications Acetaminophen (Tylenol) 650 mg PO Q4H PRN PRN Reason: Pain MILD(1-3)/Fever >100.5/SAEED Albumin Human (Alburx 25% (Albumin)) 12.5 gm IV JEANINE PRN PRN Reason: Hypotension Amlodipine Besylate (Norvasc) 10 mg PO QDAY [facility] Carvedilol (Coreg) 6.25 mg PO BID GORDO Famotidine (Pepcid) 10 mg PO BID GORDO Last Admin: 03/12/18 22:07 Dose: 10 mg Documented by: Hydralazine HCl (Apresoline) 5 mg IV Q6HR PRN PRN Reason: Hypertension Last Admin: 03/13/18 06:43 Dose: 5 mg Documented by: Hydromorphone HCl (Dilaudid) 0.5 mg IV Q4H PRN PRN Reason: Pain , Severe (7-10) Last Admin: 03/11/18 21:23 Dose: 0.5 mg Documented by: Hydroxyzine HCl (Atarax) 25 mg PO Q6H PRN PRN Reason: Itching Last Admin: 03/12/18 22:07 Dose: 25 mg Documented by: Sodium Chloride (Nacl 0.9%) 100 mls @ 999 mls/hr IV JEANINE PRN PRN Reason: Hypotension Ceftriaxone Sodium (Rocephin/Ns 1 Gm/50 Ml) 1 gm in 50 mls @ 100 mls/hr IV Q24HR GORDO; Protocol Last Admin: 03/12/18 22:23 Dose: 100 mls/hr Documented by: Metronidazole (Flagyl 500 Mg/100 Ml) 500 mg in 100 mls @ 100 mls/hr IV Q8HR GORDO; Protocol Last Admin: 03/13/18 05:13 Dose: 100 mls/hr Documented by: Ondansetron HCl (Zofran) 4 mg IV Q8H PRN PRN Reason: Nausea And Vomiting Oxycodone/Acetaminophen (Percocet 5/325) 1 tab PO Q6H PRN PRN Reason: Pain, Moderate (4-6) Last Admin: 03/12/18 22:07 Dose: 1 tab Documented by: Sodium Chloride (Sodium Chloride Flush Syringe 10 Ml) 10 ml IV BID GORDO Last Admin: 03/12/18 22:09 Dose: 10 ml Documented by: Sodium Chloride (Sodium Chloride Flush Syringe 10 Ml) 10 ml IV PRN PRN PRN Reason: LINE FLUSH medications reviewed/updated as required Review of Systems - Review of Systems All systems: negative Respiratory: shortness of breath Gastrointestinal: other (abdominal distention) Exam - Constitutional Vital Signs: Temp Pulse Resp BP Pulse Ox 98.3 F 74 16 173/91 96 03/13/18 07:40 03/13/18 08:04 03/13/18 08:04 03/13/18 07:40 03/13/18 08:04 General appearance: no acute distress - EENT Eyes: PERRL, EOM intact ENT: hearing intact - Respiratory Respiratory: bilateral: diminished - Cardiovascular Rhythm: regular Heart Sounds: Present: S1 & S2 - Gastrointestinal General gastrointestinal: Present: soft, non-tender, distended, normal bowel sounds - Neurologic Neurological: alert and oriented x3 - Labs CBC & Chem 7: 03/13/18 04:30 03/13/18 04:30 Lab Results: Laboratory Results - last 24 hr 0103/13/18 03/13/18 20:06 04:30 04:30 WBC 4.2 L RBC 3.44 L Hgb 11.6 L Hct 35.3 L MCV 103 H MCH 34 H MCHC 33 RDW 16.4 H Plt Count 204 Archer % (Auto) Custodial Aide Add Manual Diff Complete Total Counted 100 Seg Neuts % (Manual) 47.0 Band Neutrophils % 0 Lymphocytes % (Manual) 26.0 Reactive Lymphs % (Man) 0 Monocytes % (Manual) 18.0 H Eosinophils % (Manual) 7.0 H Basophils % (Manual) 2.0 H Metamyelocytes % 0 Myelocytes % 0 Promyelocytes % 0 Blast Cells % 0 Nucleated RBC % Not Reportable Seg Neutrophils # Man 2.0 Band Neutrophils # 0.0 Lymphocytes # (Manual) 1.1 L Abs React Lymphs (Man) 0.0 Monocytes # (Manual) 0.8 Eosinophils # (Manual) 0.3 Basophils # (Manual) 0.1 Metamyelocytes # 0.0 Myelocytes # 0.0 Promyelocytes # 0.0 Blast Cells # 0.0 WBC Morphology Not Reportable Hypersegmented Neuts Not Reportable Hyposegmented Neuts Not Reportable Hypogranular Neuts Not Reportable Smudge Cells Not Reportable Toxic Granulation Not Reportable Toxic Vacuolation Not Reportable Dohle Bodies Not Reportable Pelger-Huet Anomaly Not Reportable Libby Rods Not Reportable Platelet Estimate Consistent w auto Clumped Platelets Not Reportable Plt Clumps, EDTA Not Reportable Large Platelets Not Reportable Giant Platelets Not Reportable Platelet Satelliting Not Reportable Plt Morphology Comment Not Reportable RBC Morphology Not Reportable Dimorphic RBCs Not Reportable Polychromasia Not Reportable Hypochromasia Not Reportable Poikilocytosis 1+ Anisocytosis 1+ Microcytosis Few Macrocytosis Not Reportable Spherocytes Not Reportable Pappenheimer Bodies Not Reportable Sickle Cells Not Reportable Target Cells Not Reportable Tear Drop Cells Not Reportable Ovalocytes Few Helmet Cells Not Reportable [place] Bodies Not Reportable [place] Rings Not Reportable Arjun Cells Not Reportable Bite Cells Not Reportable Crenated Cell Not Reportable Elliptocytes Not Reportable Acanthocytes (Spur) Not Reportable Rouleaux Not Reportable Hemoglobin C Crystals Not Reportable Schistocytes Not Reportable Malaria parasites Not Reportable Ted Bodies Not Reportable Hem Pathologist Commnt No PT INR APTT Sodium 139 Potassium 5.2 H Chloride 98.6 Carbon Dioxide 28 Anion Gap 18 BUN 45 H Creatinine 8.3 H Estimated GFR 8 BUN/Creatinine Ratio 5 Glucose 79 POC Glucose Calcium 9.0 Total Bilirubin 0.30 AST 14 ALT 16 Alkaline Phosphatase 92 Total Protein 7.7 Albumin 3.8 L Albumin/Globulin Ratio 1.0 Hepatitis A IgM Ab Non-reactive Hep Bs Antigen Non-reactive Hep B Core IgM Ab Non-reactive Hepatitis C Antibody Non-reactive 03/13/18 03/13/18 06:35 08:42 WBC RBC Hgb Hct MCV MCH MCHC RDW Plt Count Archer % (Auto) Add Manual Diff Total Counted Seg Neuts % (Manual) Band Neutrophils % Lymphocytes % (Manual) Reactive Lymphs % (Man) Monocytes % (Manual) Eosinophils % (Manual) Basophils % (Manual) Metamyelocytes % Myelocytes % Promyelocytes % Blast Cells % Nucleated RBC % Seg Neutrophils # Man Band Neutrophils # Lymphocytes # (Manual) Abs React Lymphs (Man) Monocytes # (Manual) Eosinophils # (Manual) Basophils # (Manual) Metamyelocytes # Myelocytes # Promyelocytes # Blast Cells # WBC Morphology Hypersegmented Neuts Hyposegmented Neuts Hypogranular Neuts Smudge Cells Toxic Granulation Toxic Vacuolation Dohle Bodies Pelger-Huet Anomaly Libby Rods Platelet Estimate Clumped Platelets Plt Clumps, EDTA Large Platelets Giant Platelets Platelet Satelliting Plt Morphology Comment RBC Morphology Dimorphic RBCs Polychromasia Hypochromasia Poikilocytosis Anisocytosis Microcytosis Macrocytosis Spherocytes Pappenheimer Bodies Sickle Cells Target Cells Tear Drop Cells Ovalocytes Helmet Cells [place] Bodies [place] Rings Arjun Cells Bite Cells Crenated Cell Elliptocytes Acanthocytes (Spur) Rouleaux Hemoglobin C Crystals Schistocytes Malaria parasites Ted Bodies Hem Pathologist Commnt PT 16.5 H INR 1.29 H APTT 34.2 Sodium Potassium Chloride Carbon Dioxide Anion Gap BUN Creatinine Estimated GFR BUN/Creatinine Ratio Glucose POC Glucose 60 L Calcium Total Bilirubin AST ALT Alkaline Phosphatase Total Protein Albumin Albumin/Globulin Ratio Hepatitis A IgM Ab Hep Bs Antigen Hep B Core IgM Ab Hepatitis C Antibody Assessment and Plan 1.abdominal distention 2.ascites? -patient reports a possible h/o liver disease over 30 years ago 2/2 ETOH, however quit drinking alcohol 7 years ago and as been asymptomatic up to this point -plt WNL (204) -INR 1.29 -LFTs WNL -etiology unclear- possible ascites 2/2 congestion/fluid overload vs liver disease? -U/S guided diagnostic/therapeutic paracentesis pending for today -continue supportive care -further recommendations to follow pending above results
[2018-03-13] MEDS: PEPCID PO SCH ×2 (10:38→21:53)
[2018-03-13] MEDS: ATARAX PO PRN ×2 (10:40→18:10)
[2018-03-13] MEDS: NORVASC PO SCH (10:45)
[2018-03-13] MEDS: COREG PO SCH ×2 (10:52→21:53)
[2018-03-13] MEDS ORDERED: NACL 0.9 (PRIMING MACHINE ONLY DIALYSIS) MC ONE (15:04)
[2018-03-13] MEDS: ROCEPHIN/NS 1 GM/50 ML 1 GM/50 ML BAG IV SCH (18:20)
[2018-03-13] MEDS: SODIUM CHLORIDE FLUSH SYRINGE 10 ML IV SCH ×2 (18:22→21:54)
--- NOTE | 2018-03-13 19:20 | Ultrasound Report ---
FINAL REPORT EXAM: US ABDOMEN COMPLETE HISTORY: abdominal distention, ascites? TECHNIQUE: Grayscale and color-flow imaging of the upper abdomen was performed. Comparison: CT abdomen and pelvis dated March 20, 2017 FINDINGS: Visualization detail is somewhat limited by artifact created by body habitus. Upper abdominal aorta: Normal caliber (2 centimeters). Liver: Demonstrates normal homogeneous echogenicity. There is no demonstration of a focal mass. Pancreas: Not well visualized due to artifact. Gallbladder: Moderately distended. There is no demonstration of gallstones or gallbladder wall thicke lacey (2.5 millimeters). There is no demonstration of pericholecystic fluid. Main portal vein: Normal hepatopetal flow. Common hepatic duct: Normal caliber (2 millimeters). Right kidney: Measures 10 centimeters in the maximal craniocaudal dimension. There is an approximatel y 2.5 centimeters cyst arising from the midpole of the right kidney. There is no evidence of hydronep hrosis. Left kidney: Measures 8.8 centimeters in the maximal craniocaudal dimension. There is no evidence of hydronephrosis. Calcifications in both kidneys most likely represent renal stones. Spleen: Normal size and echogenicity The technologist describes free fluid in the left lower quadrant. This is not convincingly demonstrat ed on the static images provided. IMPRESSION: 1. Study degraded by artifact created by body habitus. 2. The technologist describes free fluid in the left lower quadrant that is not convincingly demonstr ated on the static images provided. 3. Right renal cyst and bilateral renal stones. No evidence of hydronephrosis. If further imaging is required, CT may be helpful.
[2018-03-13] MEDS: PERCOCET 5/325 PO PRN (21:53)
[2018-03-14] MEDS: FLAGYL 500 MG/100 ML 500 MG/100 ML BAG IV SCH ×3 (01:59→17:30)
[2018-03-14] MEDS: ATARAX PO PRN ×3 (03:41→20:58)
[2018-03-14 08:21] LABS: Hematocrit 37.5 % (35.5-45.6); Hemoglobin 12.3 gm/dl (11.8-15.2); Mean Corpuscular HGB Conc 33 % (32-34); Mean Corpuscular Volume 102 fl (84-94); Platelet Count 210 K/mm3 (140-440); Red Blood Count 3.67 M/mm3 (3.65-5.03); Red Cell Distribution Width 16.1 % (13.2-15.2)
[2018-03-14 08:40] LABS: Calcium 9.3 mg/dL (8.4-10.2)
[2018-03-14] MEDS: SODIUM CHLORIDE FLUSH SYRINGE 10 ML IV SCH ×2 (09:57→20:59)
[2018-03-14] MEDS: COREG PO SCH ×2 (09:57→20:59)
[2018-03-14] MEDS: PEPCID PO SCH ×2 (09:57→20:59)
[2018-03-14] MEDS: NORVASC PO SCH (09:57)
[2018-03-14] MEDS: ROCEPHIN/NS 1 GM/50 ML 1 GM/50 ML BAG IV SCH (11:01)
--- NOTE | 2018-03-14 12:51 | Progress Note ---
Assessment and Plan Assessment and plan: Patient is a 62 yo man with ESRD on HD MWF, hypertension, Type 2 DM, Dylipidemia, GERD, CAD s/p stent and CVA who presented to [facility] ED with increasing shortness of breath for 2 days -SOB most likely from volume overload from Ascites: GI evaluating -Upper abd ascites, ?related to Liver Cirrhosis. -ESRD on hemodialysis; consulted Nephrology, renal diet -Hyperkalemia, dialysis will help, resolved monitor closely -Type 2 DM: use SSI for now -Hypoglycemia resolved with IV dextrose History Interval history: Patient seen and examined. Follow up chief complaint: abd distension with sob. Still has sob and wants fluid taking off abdomen. Hospitalist Physical - Physical exam Narrative exam: Gen: ill appearing, thin frial, NAD, Awake, Alert, Orientated HEENT: NCAT, EOMI, PERRL, OP Clear Neck: supple, no adenopathy, no thyromegaly, no JVD CVS/Heart: RRR, normal S1S2, pulses present bilaterally Chest/Lungs: diminished bs bilaterally, Symmetrical chest expansion, good air entry bilaterally GI/Abdomen: distended, nontender, good bowel sounds, no guarding or rebound /Bladder: no suprapubic tenderness, no CVA or paraspinal tenderness Extermity/Skin: extremities edema flanks, legs, thighs, no obvious rash MSK: FROM x 4 Neuro: CN 2-12 grossly intact, no new focal deficits Psych: calm - Constitutional Vitals: Temp Pulse Resp BP Pulse Ox 97.8 F 72 16 168/91 98 03/14/18 11:32 03/14/18 11:32 03/14/18 11:32 03/14/18 11:32 03/14/18 11:32 General appearance: Present: well-nourished Results - Labs CBC & Chem 7: 03/14/18 06:48 03/14/18 06:48 Labs: Laboratory Last Values WBC 3.4 K/mm3 (4.5-11.0) L 03/14/18 06:48 RBC 3.67 M/mm3 (3.65-5.03) 03/14/18 06:48 Hgb 12.3 gm/dl (11.8-15.2) 03/14/18 06:48 Hct 37.5 % (35.5-45.6) 03/14/18 06:48 MCV 102 fl (84-94) H 03/14/18 06:48 MCH 34 pg (28-32) H 03/14/18 06:48 MCHC 33 % (32-34) 03/14/18 06:48 RDW 16.1 % (13.2-15.2) H 03/14/18 06:48 Plt Count 210 K/mm3 (140-440) 03/14/18 06:48 Lymph % (Auto) 18.2 % (13.4-35.0) 03/11/18 10:37 [place] % (Auto) Production Technician 03/13/18 04:30 Eos % (Auto) 3.3 % (0.0-4.3) 03/11/18 10:37 Baso % (Auto) 0.3 % (0.0-1.8) 03/11/18 10:37 Lymph # 1.1 K/mm3 (1.2-5.4) L 03/11/18 10:37 Moca # 0.7 K/mm3 (0.0-0.8) 03/11/18 10:37 Eos # 0.2 K/mm3 (0.0-0.4) 03/11/18 10:37 Baso # 0.0 K/mm3 (0.0-0.1) 03/11/18 10:37 Add Manual Diff Complete 03/13/18 04:30 Total Counted 100 03/13/18 04:30 Seg Neutrophils % 67.4 % (40.0-70.0) 03/11/18 10:37 Seg Neuts % (Manual) 47.0 % (40.0-70.0) 03/13/18 04:30 Band Neutrophils % 0 % 03/13/18 04:30 Lymphocytes % (Manual) 26.0 % (13.4-35.0) 03/13/18 04:30 Reactive Lymphs % (Man) 0 % 03/13/18 04:30 Monocytes % (Manual) 18.0 % (0.0-7.3) H 03/13/18 04:30 Eosinophils % (Manual) 7.0 % (0.0-4.3) H 03/13/18 04:30 Basophils % (Manual) 2.0 % (0.0-1.8) H 03/13/18 04:30 Metamyelocytes % 0 % 03/13/18 04:30 Myelocytes % 0 % 03/13/18 04:30 Promyelocytes % 0 % 03/13/18 04:30 Blast Cells % 0 % 03/13/18 04:30 Nucleated RBC % Not Reportable 03/13/18 04:30 Seg Neutrophils # 4.2 K/mm3 (1.8-7.7) 03/11/18 10:37 Seg Neutrophils # Man 2.0 K/mm3 (1.8-7.7) 03/13/18 04:30 Band Neutrophils # 0.0 K/mm3 03/13/18 04:30 Lymphocytes # (Manual) 1.1 K/mm3 (1.2-5.4) L 03/13/18 04:30 Abs React Lymphs (Man) 0.0 K/mm3 03/13/18 04:30 Monocytes # (Manual) 0.8 K/mm3 (0.0-0.8) 03/13/18 04:30 Eosinophils # (Manual) 0.3 K/mm3 (0.0-0.4) 03/13/18 04:30 Basophils # (Manual) 0.1 K/mm3 (0.0-0.1) 03/13/18 04:30 Metamyelocytes # 0.0 K/mm3 03/13/18 04:30 Myelocytes # 0.0 K/mm3 03/13/18 04:30 Promyelocytes # 0.0 K/mm3 03/13/18 04:30 Blast Cells # 0.0 K/mm3 03/13/18 04:30 WBC Morphology Not Reportable 03/13/18 04:30 Hypersegmented Neuts Not Reportable 03/13/18 04:30 Hyposegmented Neuts Not Reportable 03/13/18 04:30 Hypogranular Neuts Not Reportable 03/13/18 04:30 Smudge Cells Not Reportable 03/13/18 04:30 Toxic Granulation Not Reportable 03/13/18 04:30 Toxic Vacuolation Not Reportable 03/13/18 04:30 Dohle Bodies Not Reportable 03/13/18 04:30 Pelger-Huet Anomaly Not Reportable 03/13/18 04:30 Libby Rods Not Reportable 03/13/18 04:30 Platelet Estimate Consistent w auto 03/13/18 04:30 Clumped Platelets Not Reportable 03/13/18 04:30 Plt Clumps, EDTA Not Reportable 03/13/18 04:30 Large Platelets Not Reportable 03/13/18 04:30 Giant Platelets Not Reportable 03/13/18 04:30 Platelet Satelliting Not Reportable 03/13/18 04:30 Plt Morphology Comment Not Reportable 03/13/18 04:30 RBC Morphology Not Reportable 03/13/18 04:30 Dimorphic RBCs Not Reportable 03/13/18 04:30 Polychromasia Not Reportable 03/13/18 04:30 Hypochromasia Not Reportable 03/13/18 04:30 Poikilocytosis 1+ 03/13/18 04:30 Anisocytosis 1+ 03/13/18 04:30 Microcytosis Few 03/13/18 04:30 Macrocytosis Not Reportable 03/13/18 04:30 Spherocytes Not Reportable 03/13/18 04:30 Pappenheimer Bodies Not Reportable 03/13/18 04:30 Sickle Cells Not Reportable 03/13/18 04:30 Target Cells Not Reportable 03/13/18 04:30 Tear Drop Cells Not Reportable 03/13/18 04:30 Ovalocytes Few 03/13/18 04:30 Helmet Cells Not Reportable 03/13/18 04:30 [place] Bodies Not Reportable 03/13/18 04:30 [place] Rings Not Reportable 03/13/18 04:30 Arjun Cells Not Reportable 03/13/18 04:30 Bite Cells Not Reportable 03/13/18 04:30 Crenated Cell Not Reportable 03/13/18 04:30 Elliptocytes Not Reportable 03/13/18 04:30 Acanthocytes (Spur) Not Reportable 03/13/18 04:30 Rouleaux Not Reportable 03/13/18 04:30 Hemoglobin C Crystals Not Reportable 03/13/18 04:30 Schistocytes Not Reportable 03/13/18 04:30 Malaria parasites Not Reportable 03/13/18 04:30 Ted Bodies Not Reportable 03/13/18 04:30 Hem Pathologist Commnt No 03/13/18 04:30 PT 16.5 Sec. (12.2-14.9) H 03/13/18 08:42 INR 1.29 (0.87-1.13) H 03/13/18 08:42 APTT 34.2 Sec. (24.2-36.6) 03/13/18 08:42 Sodium 139 mmol/L (137-145) 03/14/18 06:48 Potassium 4.6 mmol/L (3.6-5.0) 03/14/18 06:48 Chloride 96.3 mmol/L (98-107) L 03/14/18 06:48 Carbon Dioxide 28 mmol/L (22-30) 03/14/18 06:48 Anion Gap 19 mmol/L 03/14/18 06:48 BUN 29 mg/dL (9-20) H 03/14/18 06:48 Creatinine 6.2 mg/dL (0.8-1.5) H 03/14/18 06:48 Estimated GFR 11 ml/min 03/14/18 06:48 BUN/Creatinine Ratio 5 % 03/14/18 06:48 Glucose 103 mg/dL (75-100) H 03/14/18 06:48 POC Glucose 99 (70-105) 03/14/18 06:43 Lactic Acid 0.80 mmol/L (0.7-2.0) 03/11/18 10:37 Calcium 9.3 mg/dL (8.4-10.2) 03/14/18 06:48 Total Bilirubin 0.30 mg/dL (0.1-1.2) 03/14/18 06:48 AST 12 units/L (5-40) 03/14/18 06:48 ALT 12 units/L (7-56) 03/14/18 06:48 Alkaline Phosphatase 88 units/L (35-129) 03/14/18 06:48 Troponin T 0.035 ng/mL (0.00-0.029) H 03/11/18 10:37 NT-Pro-B Natriuret Pep 9113 pg/mL (0-900) H 03/11/18 10:37 Total Protein 7.4 g/dL (6.3-8.2) 03/14/18 06:48 Albumin 4.0 g/dL (3.9-5) 03/14/18 06:48 Albumin/Globulin Ratio 1.2 % 03/14/18 06:48 Triglycerides 50 mg/dL (2-149) 03/11/18 10:37 Cholesterol 160 mg/dL (50-199) 03/11/18 10:37 LDL Cholesterol Direct 88 mg/dL (50-130) 03/11/18 10:37 HDL Cholesterol 79 mg/dL (40-59) H 03/11/18 10:37 Cholesterol/HDL Ratio 2.02 % 03/11/18 10:37 Hepatitis A IgM Ab Non-reactive (NonReactive) 03/12/18 20:06 Hep Bs Antigen Non-reactive (Negative) 03/12/18 20:06 Hep B Core IgM Ab Non-reactive (NonReactive) 03/12/18 20:06 Hepatitis C Antibody Non-reactive (NonReactive) 03/12/18 20:06
--- NOTE | 2018-03-14 13:32 | Progress Note ---
Assessment and Plan - Patient Problems (1) End stage renal disease on dialysis Current Visit: Yes Status: Chronic Plan to address problem: cont HD on MWF schedule (2) Hyperkalemia Current Visit: Yes Status: Acute Plan to address problem: resolved with HD, cont 2g K renal diet (3) Abdominal distention Current Visit: Yes Status: Acute Plan to address problem: No improvement noted with ultrafiltration and dialysis. follow GI recommendation regarding possible paracentesis (4) Hypertension Current Visit: Yes Status: Chronic Qualifiers: Hypertension type: essential hypertension Qualified Code(s): I10 - Essential (primary) hypertension Plan to address problem: on amlodipine and switched home metoprolol to carvedilol. Will continue to monitor. (5) Type 2 diabetes mellitus with diabetic nephropathy Current Visit: No Status: Acute Plan to address problem: Diabetes management per primary team. (6) Secondary hyperparathyroidism Current Visit: Yes Status: Chronic Plan to address problem: restart his home medications for phosphate binders. Subjective Date of service: 03/14/18 Principal diagnosis: ESRD Interval history: pt awake alert, in NAD, c/o distended abdomen Objective - Vital Signs Vital signs: Vital Signs - 12hr 03/14/18 03/14/18 03/14/18 04:46 07:22 07:48 Temperature 98.1 F 97.9 F Pulse Rate 73 76 74 Respiratory 16 16 Rate Blood Pressure 154/98 139/87 O2 Sat by Pulse 100 99 Oximetry 03/14/18 11:32 Temperature 97.8 F Pulse Rate 72 Respiratory 16 Rate Blood Pressure 168/91 O2 Sat by Pulse 98 Oximetry - General Appearance General appearance: well-developed, well-nourished, appears stated age EENT: ATNC, PERRL, mucous membranes moist Neck: no JVD Respiratory: Present: Clear to Ascultation Cardiology: regular, S1S2 Gastrointestinal: normoactive bowel sounds, distended Integumentary: no rash, other (no edema ) Neurologic: no focal deficit, alert and oriented x3, strength 5/5, CN 3-12 intact Psychiatric: mood/affect appropriate, cooperative - Lab 03/14/18 06:48 03/14/18 06:48 Most recent lab results Calcium 9.3 mg/dL (8.4-10.2) 03/14/18 06:48 Medications & Allergies - Medications Allergies/Adverse Reactions: Allergies No Known Allergies Allergy (Verified 02/28/17 00:21) Home Medications: Home Medications Medication Instructions Recorded Confirmed Last Taken Type Rosuvastatin Calcium [Crestor] 20 mg PO QHS 07/03/17 03/11/18 1 Day Ago History ~03/10/18 Sevelamer Carbonate [Renvela] 2,400 mg PO TIDWM 07/03/17 03/11/18 1 Day Ago History ~03/10/18 Aspirin [Aspirin BABY CHEW TAB] 81 mg PO QDAY #30 tab.chew 07/05/17 03/11/18 1 Day Ago Rx ~03/10/18 B Complex 11/Folic/C/Biot/Zinc 1 each PO DAILY 02/13/18 03/11/18 1 Day Ago History [Dialyvite with Zinc Tablet] ~03/10/18 Ergocalciferol (Vitamin D2) 50,000 unit PO QWEEK 02/13/18 03/11/18 1 Day Ago History [Drisdol] ~03/10/18 Omeprazole 20 mg PO QDAY 02/13/18 03/11/18 1 Day Ago History ~03/10/18 ISOSORBIDE MONOnitrate [Imdur ER] 30 mg PO DAILY #30 tablet 02/14/18 03/11/18 1 Day Ago Rx ~03/10/18 Metoprolol [Lopressor TAB] 12.5 mg PO BID #30 tablet 02/14/18 03/11/18 1 Day Ago Rx ~03/10/18 amLODIPine [Norvasc] 10 mg PO DAILY #30 tablet 02/14/18 03/11/18 1 Day Ago Rx ~03/10/18 Active Medications: Generic Name Dose Route Start Last Admin Trade Name Freq PRN Reason Stop Dose Admin Acetaminophen 650 mg 03/12/18 01:19 Tylenol PO Q4H PRN Pain MILD(1-3)/Fever >100.5/SAEED Albumin Human 12.5 gm 03/11/18 13:07 Alburx 25% (Albumin) IV JEANINE PRN Hypotension Amlodipine Besylate 10 mg 03/13/18 10:00 03/14/18 09:57 Norvasc PO 10 mg QDAY GORDO Administration Carvedilol 6.25 mg 03/13/18 10:00 03/14/18 09:57 Coreg PO 6.25 mg BID GORDO Administration Famotidine 10 mg 03/12/18 10:00 03/14/18 09:57 Pepcid PO 10 mg BID GORDO Administration Hydralazine HCl 5 mg 03/13/18 01:44 03/13/18 06:43 Apresoline IV 5 mg Q6HR PRN Administration Hypertension Hydromorphone HCl 0.5 mg 03/11/18 20:56 03/11/18 21:23 Dilaudid IV 0.5 mg Q4H PRN Administration Pain , Severe (7-10) Hydroxyzine HCl 25 mg 03/11/18 20:54 03/14/18 09:59 Atarax PO 25 mg Q6H PRN Administration Itching Sodium Chloride 100 mls @ 999 mls/hr 03/11/18 13:07 Nacl 0.9% IV JEANINE PRN Hypotension Ceftriaxone Sodium 1 gm in 50 mls @ 100 mls/hr 03/12/18 20:00 03/14/18 11:01 Rocephin/Ns 1 Gm/50 Ml IV 100 mls/hr Q24HR GORDO Administration Protocol Metronidazole 500 mg in 100 mls @ 100 mls/hr 03/14/18 02:00 03/14/18 10:00 Flagyl 500 Mg/100 Ml IV 100 mls/hr Q8H GORDO Administration Protocol Ondansetron HCl 4 mg 03/12/18 01:19 Zofran IV Q8H PRN Nausea And Vomiting Oxycodone/Acetaminophen 1 tab 03/12/18 01:19 03/13/18 21:53 Percocet 5/325 PO 1 tab Q6H PRN Administration Pain, Moderate (4-6) Sodium Chloride 10 ml 03/12/18 10:00 03/14/18 09:57 Sodium Chloride Flush Syringe 10 Ml IV 10 ml BID GORDO Administration Sodium Chloride 10 ml 03/12/18 01:19 Sodium Chloride Flush Syringe 10 Ml IV PRN PRN LINE FLUSH
--- NOTE | 2018-03-14 13:58 | Progress Note ---
Assessment and Plan 1. Abdominal distention - U/S shows no significant ascites. Pt convinced this is new in onset and limits his eating due to sense of distention. - will get CT abd/pelvis with oral contrast only. If no clear pathology, may discharge to home. 2. Hx cirrhosis - no evidence of hepatic dysfunction. No further evaluation. Subjective Date of service: 03/14/18 Principal diagnosis: ESRD Interval history: Pt denies complaints, except for abd distention x 3-4 wks. No abd pain, N/V. Objective - Constitutional Vitals: Vital Signs - 12hr 03/14/18 03/14/18 03/14/18 04:46 07:22 07:48 Temperature 98.1 F 97.9 F Pulse Rate 73 76 74 Respiratory 16 16 Rate Blood Pressure 154/98 139/87 O2 Sat by Pulse 100 99 Oximetry 03/14/18 11:32 Temperature 97.8 F Pulse Rate 72 Respiratory 16 Rate Blood Pressure 168/91 O2 Sat by Pulse 98 Oximetry General appearance: Present: no acute distress - EENT Eyes: PERRL, EOM intact ENT: hearing intact - Respiratory Respiratory effort: normal - Gastrointestinal General gastrointestinal: Present: soft, non-tender, other (Obese) - Labs CBC & Chem 7: 03/14/18 06:48 03/14/18 06:48 Labs: Abnormal lab results 03/13/18 03/14/18 03/14/18 Range/Units 11:29 05:49 06:48 WBC 3.4 L (4.5-11.0) K/mm3 MCV 102 H (84-94) fl MCH 34 H (28-32) pg RDW 16.1 H (13.2-15.2) % Chloride (98-107) mmol/L BUN (9-20) mg/dL Creatinine (0.8-1.5) mg/dL Glucose (75-100) mg/dL POC Glucose 68 L 67 L (70-105) 03/14/18 Range/Units 06:48 WBC (4.5-11.0) K/mm3 MCV (84-94) fl MCH (28-32) pg RDW (13.2-15.2) % Chloride 96.3 L (98-107) mmol/L BUN 29 H (9-20) mg/dL Creatinine 6.2 H (0.8-1.5) mg/dL Glucose 103 H (75-100) mg/dL POC Glucose (70-105) Medications & Allergies - Medications Allergies/Adverse Reactions: Allergies No Known Allergies Allergy (Verified 02/28/17 00:21) Home Medications: Home Medications Medication Instructions Recorded Confirmed Last Taken Type Rosuvastatin Calcium [Crestor] 20 mg PO QHS 07/03/17 03/11/18 1 Day Ago History ~03/10/18 Sevelamer Carbonate [Renvela] 2,400 mg PO TIDWM 07/03/17 03/11/18 1 Day Ago History ~03/10/18 Aspirin [Aspirin BABY CHEW TAB] 81 mg PO QDAY #30 tab.chew 07/05/17 03/11/18 1 Day Ago Rx ~03/10/18 B Complex 11/Folic/C/Biot/Zinc 1 each PO DAILY 02/13/18 03/11/18 1 Day Ago History [Dialyvite with Zinc Tablet] ~03/10/18 Ergocalciferol (Vitamin D2) 50,000 unit PO QWEEK 02/13/18 03/11/18 1 Day Ago History [Drisdol] ~03/10/18 Omeprazole 20 mg PO QDAY 02/13/18 03/11/18 1 Day Ago History ~03/10/18 ISOSORBIDE MONOnitrate [Imdur ER] 30 mg PO DAILY #30 tablet 02/14/18 03/11/18 1 Day Ago Rx ~03/10/18 Metoprolol [Lopressor TAB] 12.5 mg PO BID #30 tablet 02/14/18 03/11/18 1 Day Ago Rx ~03/10/18 amLODIPine [Norvasc] 10 mg PO DAILY #30 tablet 02/14/18 03/11/18 1 Day Ago Rx ~03/10/18 Active Medications: Generic Name Dose Route Start Last Admin Trade Name Freq PRN Reason Stop Dose Admin Acetaminophen 650 mg 03/12/18 01:19 Tylenol PO Q4H PRN Pain MILD(1-3)/Fever >100.5/SAEED Albumin Human 12.5 gm 03/11/18 13:07 Alburx 25% (Albumin) IV JEANINE PRN Hypotension Amlodipine Besylate 10 mg 03/13/18 10:00 03/14/18 09:57 Norvasc PO 10 mg QDAY GORDO Administration Carvedilol 6.25 mg 03/13/18 10:00 03/14/18 09:57 Coreg PO 6.25 mg BID GORDO Administration Famotidine 10 mg 03/12/18 10:00 03/14/18 09:57 Pepcid PO 10 mg BID GORDO Administration Hydralazine HCl 5 mg 03/13/18 01:44 03/13/18 06:43 Apresoline IV 5 mg Q6HR PRN Administration Hypertension Hydromorphone HCl 0.5 mg 03/11/18 20:56 03/11/18 21:23 Dilaudid IV 0.5 mg Q4H PRN Administration Pain , Severe (7-10) Hydroxyzine HCl 25 mg 03/11/18 20:54 03/14/18 09:59 Atarax PO 25 mg Q6H PRN Administration Itching Sodium Chloride 100 mls @ 999 mls/hr 03/11/18 13:07 Nacl 0.9% IV JEANINE PRN Hypotension Ceftriaxone Sodium 1 gm in 50 mls @ 100 mls/hr 03/12/18 20:00 03/14/18 11:01 Rocephin/Ns 1 Gm/50 Ml IV 100 mls/hr Q24HR GORDO Administration Protocol Metronidazole 500 mg in 100 mls @ 100 mls/hr 03/14/18 02:00 03/14/18 10:00 Flagyl 500 Mg/100 Ml IV 100 mls/hr Q8H GORDO Administration Protocol Ondansetron HCl 4 mg 03/12/18 01:19 Zofran IV Q8H PRN Nausea And Vomiting Oxycodone/Acetaminophen 1 tab 03/12/18 01:19 03/13/18 21:53 Percocet 5/325 PO 1 tab Q6H PRN Administration Pain, Moderate (4-6) Sevelamer Carbonate 2,400 mg 03/14/18 16:30 Renvela PO AC GORDO Sodium Chloride 10 ml 03/12/18 10:00 03/14/18 09:57 Sodium Chloride Flush Syringe 10 Ml IV 10 ml BID GORDO Administration Sodium Chloride 10 ml 03/12/18 01:19 Sodium Chloride Flush Syringe 10 Ml IV PRN PRN LINE FLUSH
[2018-03-14] MEDS: RENVELA PO SCH (17:20)
--- NOTE | 2018-03-14 19:21 | Cat Scan Report ---
FINAL REPORT EXAM: CT ABDOMEN PELVIS WO CON HISTORY: Abdominal distention COMPARISON: CT abdomen pelvis March 2017. TECHNIQUE: Contiguous axial images were obtained. Additional sagittal and coronal reformatted images were obtained. Enteric contrast administered. FINDINGS: Linear atelectasis or scarring at the lung bases. No calcified gallstones. Gallbladder is mildly dist ended but otherwise unremarkable. No adjacent fat stranding or fluid. Liver and spleen grossly unrema rkable. No peripancreatic stranding. Nodular thickening of adrenal glands. Atrophy of the bilateral kidneys. 5 millimeter nonobstructive right renal calculus. There additional punctate nonobstructive renal calculi bilaterally versus vascular calcifications the renal sinus fat. Benign bilateral renal cysts. Aorta and IVC normal in caliber. Mild to moderate calcified plaque lisa ng the aorta. [id number] enlargement of prostate gland projecting the base the bladder measuring 4.0 x 5.3 ce ntimeters in axial dimension. Multiple diverticula outpouchings along the urinary bladder. Trabeculat ed wall thickening of the urinary bladder. Largest diverticular outpouching is at the anterior left m argin the urinary bladder measuring 5.6 x 6.4 centimeters. This is stable from prior study. Previously seen inflammatory changes of the left colon have resolved. No focal inflammatory changes t he bowel on today's exam. Small to moderate amount of stool in the colon. No bowel obstruction. The a ppendix is normal in caliber. Stomach is unremarkable. Stable moderate large right-sided inguinal hernia containing fat only. [id number] degenerative changes of the lumbar spine. Mild degenerative changes of bilateral hips. IMPRESSION: No gross acute inflammatory changes of the abdomen and pelvis. Stable chronic wall thickening urinary bladder with multiple diverticula outpouchings. This is unchan ged from prior study. No evidence of acute superimposed inflammation. Stable punctate nonobstructive renal calculi and vascular calcifications the renal sinus fat. No hydronephrosis bilaterally. Previously seen inflammatory changes the bowel have resolved. Large and small bowel loops normal in c aliber on today's exam. The appendix is normal in caliber.
[2018-03-14] MEDS: PERCOCET 5/325 PO PRN (20:58)
[2018-03-15] MEDS: FLAGYL 500 MG/100 ML 500 MG/100 ML BAG IV SCH ×2 (01:30→10:10)
--- NOTE | 2018-03-15 07:35 | Progress Note ---
Assessment and Plan - Patient Problems (1) End stage renal disease on dialysis Current Visit: Yes Status: Chronic Plan to address problem: cont HD on MWF schedule (2) Hyperkalemia Current Visit: Yes Status: Acute Plan to address problem: resolved with HD, cont 2g K renal diet (3) Abdominal distention Current Visit: Yes Status: Acute Plan to address problem: Abd US showed no significant ascites, s/p CT A/P. follow GI recommendation (4) Hypertension Current Visit: Yes Status: Chronic Qualifiers: Hypertension type: essential hypertension Qualified Code(s): I10 - Essential (primary) hypertension Plan to address problem: on amlodipine and switched home metoprolol to carvedilol. Will continue to mon itor. (5) Type 2 diabetes mellitus with diabetic nephropathy Current Visit: No Status: Acute Plan to address problem: Diabetes management per primary team. (6) Secondary hyperparathyroidism Current Visit: Yes Status: Chronic Plan to address problem: restart his home medications for phosphate binders. Subjective Date of service: 03/15/18 Principal diagnosis: ESRD Interval history: pt awake alert, in NAD, c/o distended abdomen Objective - Vital Signs Vital signs: Vital Signs - 12hr 03/14/18 03/14/18 03/14/18 19:43 20:30 20:58 Temperature Pulse Rate 78 Respiratory 18 18 Rate Respiratory Rate [Back] Blood Pressure O2 Sat by Pulse 100 Oximetry 03/14/18 03/14/18 03/14/18 20:59 21:04 21:58 Temperature Pulse Rate 82 Respiratory 18 Rate Respiratory 18 Rate [Back] Blood Pressure 163/93 O2 Sat by Pulse Oximetry 03/14/18 03/15/18 23:33 04:33 Temperature 97.6 F 97.4 F L Pulse Rate 83 73 Respiratory 14 16 Rate Respiratory Rate [Back] Blood Pressure 176/102 173/96 O2 Sat by Pulse 93 98 Oximetry - General Appearance General appearance: well-developed, well-nourished, appears stated age EENT: ATNC, PERRL, mucous membranes moist Neck: no JVD Respiratory: Present: Clear to Ascultation Cardiology: regular, S1S2 Gastrointestinal: distended, other (tympanic percussion ) Integumentary: no rash, other (no edema ) Neurologic: no focal deficit, alert and oriented x3, strength 5/5, CN 3-12 intact Psychiatric: mood/affect appropriate, cooperative - Lab 03/14/18 06:48 03/14/18 06:48 Most recent lab results Calcium 9.3 mg/dL (8.4-10.2) 03/14/18 06:48 Medications & Allergies - Medications Allergies/Adverse Reactions: Allergies No Known Allergies Allergy (Verified 02/28/17 00:21) Home Medications: Home Medications Medication Instructions Recorded Confirmed Last Taken Type Rosuvastatin Calcium [Crestor] 20 mg PO QHS 07/03/17 03/11/18 1 Day Ago History ~03/10/18 Sevelamer Carbonate [Renvela] 2,400 mg PO TIDWM 07/03/17 03/11/18 1 Day Ago History ~03/10/18 Aspirin [Aspirin BABY CHEW TAB] 81 mg PO QDAY #30 tab.chew 07/05/17 03/11/18 1 Day Ago Rx ~03/10/18 B Complex 11/Folic/C/Biot/Zinc 1 each PO DAILY 02/13/18 03/11/18 1 Day Ago History [Dialyvite with Zinc Tablet] ~03/10/18 Ergocalciferol (Vitamin D2) 50,000 unit PO QWEEK 02/13/18 03/11/18 1 Day Ago History [Drisdol] ~03/10/18 Omeprazole 20 mg PO QDAY 02/13/18 03/11/18 1 Day Ago History ~03/10/18 ISOSORBIDE MONOnitrate [Imdur ER] 30 mg PO DAILY #30 tablet 02/14/18 03/11/18 1 Day Ago Rx ~03/10/18 Metoprolol [Lopressor TAB] 12.5 mg PO BID #30 tablet 02/14/18 03/11/18 1 Day Ago Rx ~03/10/18 amLODIPine [Norvasc] 10 mg PO DAILY #30 tablet 02/14/18 03/11/18 1 Day Ago Rx ~03/10/18 Active Medications: Generic Name Dose Route Start Last Admin Trade Name Freq PRN Reason Stop Dose Admin Acetaminophen 650 mg 03/12/18 01:19 Tylenol PO Q4H PRN Pain MILD(1-3)/Fever >100.5/SAEED Albumin Human 12.5 gm 03/11/18 13:07 Alburx 25% (Albumin) IV JEANINE PRN Hypotension Amlodipine Besylate 10 mg 03/13/18 10:00 03/14/18 09:57 Norvasc PO 10 mg QDAY GORDO Administration Carvedilol 6.25 mg 03/13/18 10:00 03/14/18 20:59 Coreg PO 6.25 mg BID GORDO Administration Famotidine 10 mg 03/12/18 10:00 03/14/18 20:59 Pepcid PO 10 mg BID GORDO Administration Hydralazine HCl 5 mg 03/13/18 01:44 03/13/18 06:43 Apresoline IV 5 mg Q6HR PRN Administration Hypertension Hydromorphone HCl 0.5 mg 03/11/18 20:56 03/11/18 21:23 Dilaudid IV 0.5 mg Q4H PRN Administration Pain , Severe (7-10) Hydroxyzine HCl 25 mg 03/11/18 20:54 03/14/18 20:58 Atarax PO 25 mg Q6H PRN Administration Itching Sodium Chloride 100 mls @ 999 mls/hr 03/11/18 13:07 Nacl 0.9% IV JEANINE PRN Hypotension Ceftriaxone Sodium 1 gm in 50 mls @ 100 mls/hr 03/12/18 20:00 03/14/18 11:01 Rocephin/Ns 1 Gm/50 Ml IV 100 mls/hr Q24HR GORDO Administration Protocol Metronidazole 500 mg in 100 mls @ 100 mls/hr 03/14/18 02:00 03/15/18 01:30 Flagyl 500 Mg/100 Ml IV 100 mls/hr Q8H GORDO Administration Protocol Ondansetron HCl 4 mg 03/12/18 01:19 Zofran IV Q8H PRN Nausea And Vomiting Oxycodone/Acetaminophen 1 tab 03/12/18 01:19 03/14/18 20:58 Percocet 5/325 PO 1 tab Q6H PRN Administration Pain, Moderate (4-6) Sevelamer Carbonate 2,400 mg 03/14/18 16:30 03/14/18 17:20 Renvela PO 2,400 mg AC GORDO Administration Sodium Chloride 10 ml 03/12/18 10:00 03/14/18 20:59 Sodium Chloride Flush Syringe 10 Ml IV 10 ml BID GORDO Administration Sodium Chloride 10 ml 03/12/18 01:19 Sodium Chloride Flush Syringe 10 Ml IV PRN PRN LINE FLUSH
[2018-03-15] MEDS: RENVELA PO SCH ×2 (08:00→12:18)
[2018-03-15] MEDS: COREG PO SCH (10:09)
[2018-03-15] MEDS: PEPCID PO SCH (10:10)
[2018-03-15] MEDS: NORVASC PO SCH (10:10)
[2018-03-15] MEDS: SODIUM CHLORIDE FLUSH SYRINGE 10 ML IV SCH (10:10)
[2018-03-15] MEDS: ROCEPHIN/NS 1 GM/50 ML 1 GM/50 ML BAG IV SCH (10:11)
--- NOTE | 2018-03-15 10:42 | Progress Note ---
Assessment and Plan Assessment and plan: Patient is a 62 yo man with ESRD on HD MWF, hypertension, Type 2 DM, Dylipidemia, GERD, CAD s/p stent and CVA who presented to [facility] ED with increasing shortness of breath for 2 days -SOB most likely from volume overload from Ascites: GI evaluating -Upper abd ascites, ?related to Liver Cirrhosis. -ESRD on hemodialysis; consulted Nephrology, renal diet -Hyperkalemia, dialysis will help, resolved monitor closely -Type 2 DM: use SSI for now -Hypoglycemia resolved with IV dextrose History Interval history: Patient seen and examined. Follow up chief complaint: abd distension with sob. Still has sob and wants fluid taking off abdomen. Hospitalist Physical - Physical exam Narrative exam: Gen: ill appearing, thin frial, NAD, Awake, Alert, Orientated HEENT: NCAT, EOMI, PERRL, OP Clear Neck: supple, no adenopathy, no thyromegaly, no JVD CVS/Heart: RRR, normal S1S2, pulses present bilaterally Chest/Lungs: diminished bs bilaterally, Symmetrical chest expansion, good air entry bilaterally GI/Abdomen: distended, nontender, good bowel sounds, no guarding or rebound /Bladder: no suprapubic tenderness, no CVA or paraspinal tenderness Extermity/Skin: extremities edema flanks, legs, thighs, no obvious rash MSK: FROM x 4 Neuro: CN 2-12 grossly intact, no new focal deficits Psych: calm - Constitutional Vitals: Temp Pulse Resp BP Pulse Ox 97.8 F 72 16 176/91 98 03/15/18 07:00 03/15/18 08:14 03/15/18 04:33 03/15/18 07:00 03/15/18 04:33 General appearance: Present: no acute distress Results - Labs CBC & Chem 7: 03/14/18 06:48 03/14/18 06:48 Labs: Laboratory Last Values WBC 3.4 K/mm3 (4.5-11.0) L 03/14/18 06:48 RBC 3.67 M/mm3 (3.65-5.03) 03/14/18 06:48 Hgb 12.3 gm/dl (11.8-15.2) 03/14/18 06:48 Hct 37.5 % (35.5-45.6) 03/14/18 06:48 MCV 102 fl (84-94) H 03/14/18 06:48 MCH 34 pg (28-32) H 03/14/18 06:48 MCHC 33 % (32-34) 03/14/18 06:48 RDW 16.1 % (13.2-15.2) H 03/14/18 06:48 Plt Count 210 K/mm3 (140-440) 03/14/18 06:48 Lymph % (Auto) 18.2 % (13.4-35.0) 03/11/18 10:37 [place] % (Auto) 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 03/13/18 04:30 Eos % (Auto) 3.3 % (0.0-4.3) 03/11/18 10:37 Baso % (Auto) 0.3 % (0.0-1.8) 03/11/18 10:37 Lymph # 1.1 K/mm3 (1.2-5.4) L 03/11/18 10:37 Montgomery # 0.7 K/mm3 (0.0-0.8) 03/11/18 10:37 Eos # 0.2 K/mm3 (0.0-0.4) 03/11/18 10:37 Baso # 0.0 K/mm3 (0.0-0.1) 03/11/18 10:37 Add Manual Diff Complete 03/13/18 04:30 Total Counted 100 03/13/18 04:30 Seg Neutrophils % 67.4 % (40.0-70.0) 03/11/18 10:37 Seg Neuts % (Manual) 47.0 % (40.0-70.0) 03/13/18 04:30 Band Neutrophils % 0 % 03/13/18 04:30 Lymphocytes % (Manual) 26.0 % (13.4-35.0) 03/13/18 04:30 Reactive Lymphs % (Man) 0 % 03/13/18 04:30 Monocytes % (Manual) 18.0 % (0.0-7.3) H 03/13/18 04:30 Eosinophils % (Manual) 7.0 % (0.0-4.3) H 03/13/18 04:30 Basophils % (Manual) 2.0 % (0.0-1.8) H 03/13/18 04:30 Metamyelocytes % 0 % 03/13/18 04:30 Myelocytes % 0 % 03/13/18 04:30 Promyelocytes % 0 % 03/13/18 04:30 Blast Cells % 0 % 03/13/18 04:30 Nucleated RBC % Not Reportable 03/13/18 04:30 Seg Neutrophils # 4.2 K/mm3 (1.8-7.7) 03/11/18 10:37 Seg Neutrophils # Man 2.0 K/mm3 (1.8-7.7) 03/13/18 04:30 Band Neutrophils # 0.0 K/mm3 03/13/18 04:30 Lymphocytes # (Manual) 1.1 K/mm3 (1.2-5.4) L 03/13/18 04:30 Abs React Lymphs (Man) 0.0 K/mm3 03/13/18 04:30 Monocytes # (Manual) 0.8 K/mm3 (0.0-0.8) 03/13/18 04:30 Eosinophils # (Manual) 0.3 K/mm3 (0.0-0.4) 03/13/18 04:30 Basophils # (Manual) 0.1 K/mm3 (0.0-0.1) 03/13/18 04:30 Metamyelocytes # 0.0 K/mm3 03/13/18 04:30 Myelocytes # 0.0 K/mm3 03/13/18 04:30 Promyelocytes # 0.0 K/mm3 03/13/18 04:30 Blast Cells # 0.0 K/mm3 03/13/18 04:30 WBC Morphology Not Reportable 03/13/18 04:30 Hypersegmented Neuts Not Reportable 03/13/18 04:30 Hyposegmented Neuts Not Reportable 03/13/18 04:30 Hypogranular Neuts Not Reportable 03/13/18 04:30 Smudge Cells Not Reportable 03/13/18 04:30 Toxic Granulation Not Reportable 03/13/18 04:30 Toxic Vacuolation Not Reportable 03/13/18 04:30 Dohle Bodies Not Reportable 03/13/18 04:30 Pelger-Huet Anomaly Not Reportable 03/13/18 04:30 Libby Rods Not Reportable 03/13/18 04:30 Platelet Estimate Consistent w auto 03/13/18 04:30 Clumped Platelets Not Reportable 03/13/18 04:30 Plt Clumps, EDTA Not Reportable 03/13/18 04:30 Large Platelets Not Reportable 03/13/18 04:30 Giant Platelets Not Reportable 03/13/18 04:30 Platelet Satelliting Not Reportable 03/13/18 04:30 Plt Morphology Comment Not Reportable 03/13/18 04:30 RBC Morphology Not Reportable 03/13/18 04:30 Dimorphic RBCs Not Reportable 03/13/18 04:30 Polychromasia Not Reportable 03/13/18 04:30 Hypochromasia Not Reportable 03/13/18 04:30 Poikilocytosis 1+ 03/13/18 04:30 Anisocytosis 1+ 03/13/18 04:30 Microcytosis Few 03/13/18 04:30 Macrocytosis Not Reportable 03/13/18 04:30 Spherocytes Not Reportable 03/13/18 04:30 Pappenheimer Bodies Not Reportable 03/13/18 04:30 Sickle Cells Not Reportable 03/13/18 04:30 Target Cells Not Reportable 03/13/18 04:30 Tear Drop Cells Not Reportable 03/13/18 04:30 Ovalocytes Few 03/13/18 04:30 Helmet Cells Not Reportable 03/13/18 04:30 Ordonez-Avonia Bodies Not Reportable 03/13/18 04:30 Welch Rings Not Reportable 03/13/18 04:30 Arjun Cells Not Reportable 03/13/18 04:30 Bite Cells Not Reportable 03/13/18 04:30 Crenated Cell Not Reportable 03/13/18 04:30 Elliptocytes Not Reportable 03/13/18 04:30 Acanthocytes (Spur) Not Reportable 03/13/18 04:30 Rouleaux Not Reportable 03/13/18 04:30 Hemoglobin C Crystals Not Reportable 03/13/18 04:30 Schistocytes Not Reportable 03/13/18 04:30 Malaria parasites Not Reportable 03/13/18 04:30 Ted Bodies Not Reportable 03/13/18 04:30 Hem Pathologist Commnt No 03/13/18 04:30 PT 16.5 Sec. (12.2-14.9) H 03/13/18 08:42 INR 1.29 (0.87-1.13) H 03/13/18 08:42 APTT 34.2 Sec. (24.2-36.6) 03/13/18 08:42 Sodium 139 mmol/L (137-145) 03/14/18 06:48 Potassium 4.6 mmol/L (3.6-5.0) 03/14/18 06:48 Chloride 96.3 mmol/L (98-107) L 03/14/18 06:48 Carbon Dioxide 28 mmol/L (22-30) 03/14/18 06:48 Anion Gap 19 mmol/L 03/14/18 06:48 BUN 29 mg/dL (9-20) H 03/14/18 06:48 Creatinine 6.2 mg/dL (0.8-1.5) H 03/14/18 06:48 Estimated GFR 11 ml/min 03/14/18 06:48 BUN/Creatinine Ratio 5 % 03/14/18 06:48 Glucose 103 mg/dL (75-100) H 03/14/18 06:48 POC Glucose 99 (70-105) 03/14/18 06:43 Lactic Acid 0.80 mmol/L (0.7-2.0) 03/11/18 10:37 Calcium 9.3 mg/dL (8.4-10.2) 03/14/18 06:48 Total Bilirubin 0.30 mg/dL (0.1-1.2) 03/14/18 06:48 AST 12 units/L (5-40) 03/14/18 06:48 ALT 12 units/L (7-56) 03/14/18 06:48 Alkaline Phosphatase 88 units/L (35-129) 03/14/18 06:48 Troponin T 0.035 ng/mL (0.00-0.029) H 03/11/18 10:37 NT-Pro-B Natriuret Pep 9113 pg/mL (0-900) H 03/11/18 10:37 Total Protein 7.4 g/dL (6.3-8.2) 03/14/18 06:48 Albumin 4.0 g/dL (3.9-5) 03/14/18 06:48 Albumin/Globulin Ratio 1.2 % 03/14/18 06:48 Triglycerides 50 mg/dL (2-149) 03/11/18 10:37 Cholesterol 160 mg/dL (50-199) 03/11/18 10:37 LDL Cholesterol Direct 88 mg/dL (50-130) 03/11/18 10:37 HDL Cholesterol 79 mg/dL (40-59) H 03/11/18 10:37 Cholesterol/HDL Ratio 2.02 % 03/11/18 10:37 Hepatitis A IgM Ab Non-reactive (NonReactive) 03/12/18 20:06 Hep Bs Antigen Non-reactive (Negative) 03/12/18 20:06 Hep B Core IgM Ab Non-reactive (NonReactive) 03/12/18 20:06 Hepatitis C Antibody Non-reactive (NonReactive) 03/12/18 20:06
--- NOTE | 2018-03-15 10:46 | Progress Note ---
Assessment and Plan Assessment and plan: Patient is a 62 yo man with ESRD on HD MWF, hypertension, Type 2 DM, Dylipidemia, GERD, CAD s/p stent and CVA who presented to [facility] ED with increasing shortness of breath for 2 days -SOB most likely from volume overload from ESRD -Upper abd ascites, ?related to Liver Cirrhosis-->ruled out ascites -ESRD on hemodialysis; consulted Nephrology, renal diet -Hyperkalemia, dialysis will help, resolved monitor closely -Type 2 DM: use SSI for now -Hypoglycemia resolved with IV dextrose History Interval history: Patient seen and examined. Follow up chief complaint: abd distension with sob. Still has sob and wants fluid taking off abdomen. Hospitalist Physical - Physical exam Narrative exam: Gen: ill appearing, thin frial, NAD, Awake, Alert, Orientated HEENT: NCAT, EOMI, PERRL, OP Clear Neck: supple, no adenopathy, no thyromegaly, no JVD CVS/Heart: RRR, normal S1S2, pulses present bilaterally Chest/Lungs: diminished bs bilaterally, Symmetrical chest expansion, good air entry bilaterally GI/Abdomen: distended, nontender, good bowel sounds, no guarding or rebound /Bladder: no suprapubic tenderness, no CVA or paraspinal tenderness Extermity/Skin: extremities edema flanks, legs, thighs, no obvious rash MSK: FROM x 4 Neuro: CN 2-12 grossly intact, no new focal deficits Psych: calm - Constitutional Vitals: Temp Pulse Resp BP Pulse Ox 97.8 F 72 16 176/91 98 03/15/18 07:00 03/15/18 08:14 03/15/18 04:33 03/15/18 07:00 03/15/18 04:33 General appearance: Present: no acute distress Results - Labs CBC & Chem 7: 03/14/18 06:48 03/14/18 06:48 Labs: Laboratory Last Values WBC 3.4 K/mm3 (4.5-11.0) L 03/14/18 06:48 RBC 3.67 M/mm3 (3.65-5.03) 03/14/18 06:48 Hgb 12.3 gm/dl (11.8-15.2) 03/14/18 06:48 Hct 37.5 % (35.5-45.6) 03/14/18 06:48 MCV 102 fl (84-94) H 03/14/18 06:48 MCH 34 pg (28-32) H 03/14/18 06:48 MCHC 33 % (32-34) 03/14/18 06:48 RDW 16.1 % (13.2-15.2) H 03/14/18 06:48 Plt Count 210 K/mm3 (140-440) 03/14/18 06:48 Lymph % (Auto) 18.2 % (13.4-35.0) 03/11/18 10:37 [place] % (Auto) Industrial Tech Instructor 03/13/18 04:30 Eos % (Auto) 3.3 % (0.0-4.3) 03/11/18 10:37 Baso % (Auto) 0.3 % (0.0-1.8) 03/11/18 10:37 Lymph # 1.1 K/mm3 (1.2-5.4) L 03/11/18 10:37 [place] # 0.7 K/mm3 (0.0-0.8) 03/11/18 10:37 Eos # 0.2 K/mm3 (0.0-0.4) 03/11/18 10:37 Baso # 0.0 K/mm3 (0.0-0.1) 03/11/18 10:37 Add Manual Diff Complete 03/13/18 04:30 Total Counted 100 03/13/18 04:30 Seg Neutrophils % 67.4 % (40.0-70.0) 03/11/18 10:37 Seg Neuts % (Manual) 47.0 % (40.0-70.0) 03/13/18 04:30 Band Neutrophils % 0 % 03/13/18 04:30 Lymphocytes % (Manual) 26.0 % (13.4-35.0) 03/13/18 04:30 Reactive Lymphs % (Man) 0 % 03/13/18 04:30 Monocytes % (Manual) 18.0 % (0.0-7.3) H 03/13/18 04:30 Eosinophils % (Manual) 7.0 % (0.0-4.3) H 03/13/18 04:30 Basophils % (Manual) 2.0 % (0.0-1.8) H 03/13/18 04:30 Metamyelocytes % 0 % 03/13/18 04:30 Myelocytes % 0 % 03/13/18 04:30 Promyelocytes % 0 % 03/13/18 04:30 Blast Cells % 0 % 03/13/18 04:30 Nucleated RBC % Not Reportable 03/13/18 04:30 Seg Neutrophils # 4.2 K/mm3 (1.8-7.7) 03/11/18 10:37 Seg Neutrophils # Man 2.0 K/mm3 (1.8-7.7) 03/13/18 04:30 Band Neutrophils # 0.0 K/mm3 03/13/18 04:30 Lymphocytes # (Manual) 1.1 K/mm3 (1.2-5.4) L 03/13/18 04:30 Abs React Lymphs (Man) 0.0 K/mm3 03/13/18 04:30 Monocytes # (Manual) 0.8 K/mm3 (0.0-0.8) 03/13/18 04:30 Eosinophils # (Manual) 0.3 K/mm3 (0.0-0.4) 03/13/18 04:30 Basophils # (Manual) 0.1 K/mm3 (0.0-0.1) 03/13/18 04:30 Metamyelocytes # 0.0 K/mm3 03/13/18 04:30 Myelocytes # 0.0 K/mm3 03/13/18 04:30 Promyelocytes # 0.0 K/mm3 03/13/18 04:30 Blast Cells # 0.0 K/mm3 03/13/18 04:30 WBC Morphology Not Reportable 03/13/18 04:30 Hypersegmented Neuts Not Reportable 03/13/18 04:30 Hyposegmented Neuts Not Reportable 03/13/18 04:30 Hypogranular Neuts Not Reportable 03/13/18 04:30 Smudge Cells Not Reportable 03/13/18 04:30 Toxic Granulation Not Reportable 03/13/18 04:30 Toxic Vacuolation Not Reportable 03/13/18 04:30 Dohle Bodies Not Reportable 03/13/18 04:30 Pelger-Huet Anomaly Not Reportable 03/13/18 04:30 Libby Rods Not Reportable 03/13/18 04:30 Platelet Estimate Consistent w auto 03/13/18 04:30 Clumped Platelets Not Reportable 03/13/18 04:30 Plt Clumps, EDTA Not Reportable 03/13/18 04:30 Large Platelets Not Reportable 03/13/18 04:30 Giant Platelets Not Reportable 03/13/18 04:30 Platelet Satelliting Not Reportable 03/13/18 04:30 Plt Morphology Comment Not Reportable 03/13/18 04:30 RBC Morphology Not Reportable 03/13/18 04:30 Dimorphic RBCs Not Reportable 03/13/18 04:30 Polychromasia Not Reportable 03/13/18 04:30 Hypochromasia Not Reportable 03/13/18 04:30 Poikilocytosis 1+ 03/13/18 04:30 Anisocytosis 1+ 03/13/18 04:30 Microcytosis Few 03/13/18 04:30 Macrocytosis Not Reportable 03/13/18 04:30 Spherocytes Not Reportable 03/13/18 04:30 Pappenheimer Bodies Not Reportable 03/13/18 04:30 Sickle Cells Not Reportable 03/13/18 04:30 Target Cells Not Reportable 03/13/18 04:30 Tear Drop Cells Not Reportable 03/13/18 04:30 Ovalocytes Few 03/13/18 04:30 Helmet Cells Not Reportable 03/13/18 04:30 [place] Bodies Not Reportable 03/13/18 04:30 [place] Rings Not Reportable 03/13/18 04:30 Arjun Cells Not Reportable 03/13/18 04:30 Bite Cells Not Reportable 03/13/18 04:30 Crenated Cell Not Reportable 03/13/18 04:30 Elliptocytes Not Reportable 03/13/18 04:30 Acanthocytes (Spur) Not Reportable 03/13/18 04:30 Rouleaux Not Reportable 03/13/18 04:30 Hemoglobin C Crystals Not Reportable 03/13/18 04:30 Schistocytes Not Reportable 03/13/18 04:30 Malaria parasites Not Reportable 03/13/18 04:30 Ted Bodies Not Reportable 03/13/18 04:30 Hem Pathologist Commnt No 03/13/18 04:30 PT 16.5 Sec. (12.2-14.9) H 03/13/18 08:42 INR 1.29 (0.87-1.13) H 03/13/18 08:42 APTT 34.2 Sec. (24.2-36.6) 03/13/18 08:42 Sodium 139 mmol/L (137-145) 03/14/18 06:48 Potassium 4.6 mmol/L (3.6-5.0) 03/14/18 06:48 Chloride 96.3 mmol/L (98-107) L 03/14/18 06:48 Carbon Dioxide 28 mmol/L (22-30) 03/14/18 06:48 Anion Gap 19 mmol/L 03/14/18 06:48 BUN 29 mg/dL (9-20) H 03/14/18 06:48 Creatinine 6.2 mg/dL (0.8-1.5) H 03/14/18 06:48 Estimated GFR 11 ml/min 03/14/18 06:48 BUN/Creatinine Ratio 5 % 03/14/18 06:48 Glucose 103 mg/dL (75-100) H 03/14/18 06:48 POC Glucose 99 (70-105) 03/14/18 06:43 Lactic Acid 0.80 mmol/L (0.7-2.0) 03/11/18 10:37 Calcium 9.3 mg/dL (8.4-10.2) 03/14/18 06:48 Total Bilirubin 0.30 mg/dL (0.1-1.2) 03/14/18 06:48 AST 12 units/L (5-40) 03/14/18 06:48 ALT 12 units/L (7-56) 03/14/18 06:48 Alkaline Phosphatase 88 units/L (35-129) 03/14/18 06:48 Troponin T 0.035 ng/mL (0.00-0.029) H 03/11/18 10:37 NT-Pro-B Natriuret Pep 9113 pg/mL (0-900) H 03/11/18 10:37 Total Protein 7.4 g/dL (6.3-8.2) 03/14/18 06:48 Albumin 4.0 g/dL (3.9-5) 03/14/18 06:48 Albumin/Globulin Ratio 1.2 % 03/14/18 06:48 Triglycerides 50 mg/dL (2-149) 03/11/18 10:37 Cholesterol 160 mg/dL (50-199) 03/11/18 10:37 LDL Cholesterol Direct 88 mg/dL (50-130) 03/11/18 10:37 HDL Cholesterol 79 mg/dL (40-59) H 03/11/18 10:37 Cholesterol/HDL Ratio 2.02 % 03/11/18 10:37 Hepatitis A IgM Ab Non-reactive (NonReactive) 03/12/18 20:06 Hep Bs Antigen Non-reactive (Negative) 03/12/18 20:06 Hep B Core IgM Ab Non-reactive (NonReactive) 03/12/18 20:06 Hepatitis C Antibody Non-reactive (NonReactive) 03/12/18 20:06
--- NOTE | 2018-03-15 10:51 | Discharge Summary ---
Providers - Providers Date of Admission: 03/11/18 12:11 Date of discharge: 03/15/18 Attending physician: ANTON DEWEY 03/12/18 01:19 Consult to Physician [CONS] Routine Comment: Dr Glaser seen pt Consulting Provider: BONY DOBBS Physician Instructions: Reason For Exam: ESRD 03/12/18 16:08 Consult to Physician [CONS] Routine Comment: Consulting Provider: THOM PIERRE Physician Instructions: Reason For Exam: Ascites, evaluate for Liver disease Primary care physician: JOE DEUTSCH Hospitalization Condition: Stable Hospital course: Patient is a 62 yo man with ESRD on HD MWF, hypertension, Type 2 DM, Dylipidemia, GERD, CAD s/p stent and CVA who presented to [facility] ED with increasing shortness of breath for 2 days -SOB most likely from volume overload from ESRD -Upper abd ascites, ?related to Liver Cirrhosis-->ruled out ascites -ESRD on hemodialysis; consulted Nephrology, renal diet -Hyperkalemia, dialysis will help, resolved monitor closely -Type 2 DM: use SSI for now -Hypoglycemia resolved with IV dextrose Disposition: DC-01 TO HOME OR SELFCARE Time spent for discharge: 35 minutes Core Measure Documentation - Palliative Care Palliative Care/ Comfort Measures: Hospice Care - Core Measures Any of the following diagnoses?: none - VTE Discharge Requirements Deep Vein Thrombosis/Pulmonary Embolism Present on Admission: No Has pt received <5 days of overlap therapy or INR<2.0: No Anticoagulant overlap therapy prescribed at discharge: No Contraindication No Overlap Therapy order at DC: Not Indicated Exam - Physical Exam Narrative exam: Gen: ill appearing, thin frial, NAD, Awake, Alert, Orientated HEENT: NCAT, EOMI, PERRL, OP Clear Neck: supple, no adenopathy, no thyromegaly, no JVD CVS/Heart: RRR, normal S1S2, pulses present bilaterally Chest/Lungs: diminished bs bilaterally, Symmetrical chest expansion, good air entry bilaterally GI/Abdomen: distended, nontender, good bowel sounds, no guarding or rebound /Bladder: no suprapubic tenderness, no CVA or paraspinal tenderness Extermity/Skin: extremities edema flanks, legs, thighs, no obvious rash MSK: FROM x 4 Neuro: CN 2-12 grossly intact, no new focal deficits Psych: calm - Constitutional Vitals: Temp Pulse Resp BP Pulse Ox 97.8 F 72 16 176/91 98 03/15/18 07:00 03/15/18 08:14 03/15/18 04:33 03/15/18 07:00 03/15/18 04:33 Plan Activity: other (no strenous activity unless cleared by PCP) Diet: renal Follow up with: JOE DEUTSCH MD [Primary Care Provider] - 3-5 Days BONY DOBBS MD [Staff Physician] - 7 Days THOM PIERRE MD [Staff Physician] - 7 Days Forms: Discharge Signature Page
[2018-03-15 11:29] VITALS: BP 176/91
== END 2018-03-15 13:30 | disposition home or self-care (01) | DRG 189 ==
LOC: ED 08:33 → 4A 12:11
PROVIDERS: ADMIT Internal Medicine; ATTEND Internal Medicine
PROC: 5A1D70Z Performance of Urinary Filtration, Intermittent, Less than 6 Hours Per Day (ICD-10-PCS; principal; 2018-03-11)
PROC: 5A1D70Z Performance of Urinary Filtration, Intermittent, Less than 6 Hours Per Day (ICD-10-PCS; 2018-03-13)
DX: J96.01 Acute respiratory failure with hypoxia (principal); N18.6 End stage renal disease; I13.2 Hypertensive heart and chronic kidney disease with heart failure and with stage 5 chronic kidney disease, or end stage renal disease; N25.81 Secondary hyperparathyroidism of renal origin; E87.70 Fluid overload, unspecified; E87.5 Hyperkalemia; I50.9 Heart failure, unspecified; E11.22 Type 2 diabetes mellitus with diabetic chronic kidney disease; R56.9 Unspecified convulsions; F12.90 Cannabis use, unspecified, uncomplicated; R14.0 Abdominal distension (gaseous); E78.5 Hyperlipidemia, unspecified; K21.9 Gastro-esophageal reflux disease without esophagitis; K74.60 Unspecified cirrhosis of liver; I25.10 Atherosclerotic heart disease of native coronary artery without angina pectoris; E11.21 Type 2 diabetes mellitus with diabetic nephropathy; E11.649 Type 2 diabetes mellitus with hypoglycemia without coma; Z51.5 Encounter for palliative care; Z82.2 Family history of deafness and hearing loss; Z87.891 Personal history of nicotine dependence; Z82.49 Family history of ischemic heart disease and other diseases of the circulatory system; Z86.73 Personal history of transient ischemic attack (TIA), and cerebral infarction without residual deficits; Z99.2 Dependence on renal dialysis
CPT/HCPCS: 36415; 71045; 74176; 76700; 80053; 80061; 80074; 82140; 82962; 83880; 84484; 85007; 85025; 85027; 85610; 85730; 87040; 93005; 93010; G0378; J0360; J0696; J1170; J1940; J7030

== ENCOUNTER 2018-05-01 12:07 | Inpatient (IN) | payer MEDICARE ==
[2018-05-01] MEDS ORDERED: NORCO 5/325 PO ONE (13:03)
--- NOTE | 2018-05-01 13:07 | Emergency Department Report ---
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 Headache started in the front and is now global. Mild blurred vision. No focal weakness or numbness reported. Patient also complains of ongoing bilateral foot pain secondary to gout. Pain is worse with pressure during ambulation. Patient did not have dialysis today and was sent to the ER for evaluation by dialysis center due to headache. Business Services Clerk: Dr. Aceves Allergies/Adverse Reactions: Allergies No Known Allergies Allergy (Verified 02/28/17 00:21) Home Medications: Ambulatory Orders Rosuvastatin Calcium [Crestor] 20 mg PO QHS 07/03/17 Sevelamer Carbonate [Renvela] 2,400 mg PO TIDWM 07/03/17 Aspirin [Aspirin BABY CHEW TAB] 81 mg PO QDAY #30 tab.chew 07/05/17 B Complex 11/Folic/C/Biot/Zinc [Dialyvite with Zinc Tablet] 1 each PO DAILY 02/13/18 Ergocalciferol (Vitamin D2) [Drisdol] 50,000 unit PO QWEEK 02/13/18 Omeprazole 20 mg PO QDAY 02/13/18 ISOSORBIDE MONOnitrate [Imdur ER] 30 mg PO DAILY #30 tablet 02/14/18 Metoprolol [Lopressor TAB] 12.5 mg PO BID #30 tablet 02/14/18 amLODIPine [Norvasc] 10 mg PO DAILY #30 tablet 02/14/18 ED Review of Systems ROS: Stated complaint: HEADACHE Other details as noted in HPI Comment: All other systems reviewed and negative ED Past Medical Hx - Past Medical History Hx Hypertension: Yes Hx CVA: Yes (x2) Hx Heart Attack/AMI: No Hx Congestive Heart Failure: Yes Hx Diabetes: Yes Hx Deep Vein Thrombosis: No Hx Liver Disease: No Hx Renal Disease: Yes (end-stage renal disease) Hx Arthritis: No Hx Seizures: Yes Hx Asthma: No Hx COPD: No Additional medical history: Cardiac Stents, dialysis M-W-F - Surgical History Hx Coronary Stent: Yes Hx Pacemaker: No Hx Internal Defibrillator: No Additional Surgical History: Cardiac stents 3 months ago 08/22? av graft to left arm - Social History Smoking Status: Never Smoker - Medications Home Medications: Home Medications Medication Instructions Recorded Confirmed Last Taken Type Rosuvastatin Calcium [Crestor] 20 mg PO QHS 07/03/17 03/11/18 1 Day Ago History ~03/10/18 Sevelamer Carbonate [Renvela] 2,400 mg PO TIDWM 07/03/17 03/11/18 1 Day Ago History ~03/10/18 Aspirin [Aspirin BABY CHEW TAB] 81 mg PO QDAY #30 tab.chew 07/05/17 03/11/18 1 Day Ago Rx ~03/10/18 B Complex 11/Folic/C/Biot/Zinc 1 each PO DAILY 02/13/18 03/11/18 1 Day Ago History [Dialyvite with Zinc Tablet] ~03/10/18 Ergocalciferol (Vitamin D2) 50,000 unit PO QWEEK 02/13/18 03/11/18 1 Day Ago History [Drisdol] ~03/10/18 Omeprazole 20 mg PO QDAY 02/13/18 03/11/18 1 Day Ago History ~03/10/18 ISOSORBIDE MONOnitrate [Imdur ER] 30 mg PO DAILY #30 tablet 02/14/18 03/11/18 1 Day Ago Rx ~03/10/18 Metoprolol [Lopressor TAB] 12.5 mg PO BID #30 tablet 02/14/18 03/11/18 1 Day Ago Rx ~03/10/18 amLODIPine [Norvasc] 10 mg PO DAILY #30 tablet 02/14/18 03/11/18 1 Day Ago Rx ~03/10/18 ED Physical Exam - General Limitations: No Limitations - Other Other exam information: General: No limitations, patient is alert in no acute distress Head exam: Atraumatic, normocephalic Eyes exam: Normal appearance, pupils equal reactive to light, extraocular movements intact ENT: Moist mucous membrane, normal oropharynx Neck exam: Normal inspection, full range of motion, no meningismus nontender Respiratory exam: Clear to auscultation bilateral, no wheezes, rales, crackles Cardiovascular: Normal rate and rhythm, systolic murmur Abdomen: Soft, nondistended, and nontender, with normal bowel sounds, no rebound, or guarding Extremity: Full range of motion normal inspection no deformity, no erythema, no tenderness, no warmth. Patient has weak dorsalis pedis pulses that are audible with Doppler Back: Normal Inspection, full range of motion, no tenderness Neurologic: Alert, oriented x3, cranial nerves intact, 4+/5 left sided strength, right 5/5. sensation intact Psychiatric: normal affect, normal mood Skin: Warm, dry, intact ED Course Vital Signs 05/01/18 05/01/18 05/01/18 12:29 12:32 12:38 Temperature 97.7 F 97.7 F Pulse Rate 79 79 Respiratory 18 20 20 Rate Blood Pressure 162/105 Blood Pressure 162/105 [Right] O2 Sat by Pulse 94 94 Oximetry - Consultations Consultation #1: 05/01/18 14:57 case d/w DR Alfredito teixeira, rec admission for dialysis ED Medical Decision Making - Lab Data Result diagrams: 05/01/18 13:49 05/01/18 13:49 Lab Results 05/01/18 05/01/18 Range/Units 13:49 13:49 WBC 5.7 (4.5-11.0) K/mm3 RBC 4.81 (3.65-5.03) M/mm3 Hgb 15.7 H (11.8-15.2) gm/dl Hct 48.1 H (35.5-45.6) % MCV 100 H (84-94) fl MCH 33 H (28-32) pg MCHC 33 (32-34) % RDW 15.4 H (13.2-15.2) % Lymph % (Auto) 22.1 (13.4-35.0) % [place] % (Auto) 8.9 H (0.0-7.3) % Eos % (Auto) 5.7 H (0.0-4.3) % Baso % (Auto) 0.2 (0.0-1.8) % Lymph # 1.3 (1.2-5.4) K/mm3 [place] # 0.5 (0.0-0.8) K/mm3 Eos # 0.3 (0.0-0.4) K/mm3 Baso # 0.0 (0.0-0.1) K/mm3 Seg Neutrophils % 63.1 (40.0-70.0) % Seg Neutrophils # 3.6 (1.8-7.7) K/mm3 Sodium 137 (137-145) mmol/L Potassium 5.9 H (3.6-5.0) mmol/L Chloride 97.8 L (98-107) mmol/L Carbon Dioxide 23 (22-30) mmol/L Anion Gap 22 mmol/L BUN 43 H (9-20) mg/dL Creatinine 8.6 H (0.8-1.5) mg/dL Estimated GFR 8 ml/min BUN/Creatinine Ratio 5 % Glucose 105 H (75-100) mg/dL Calcium 8.8 (8.4-10.2) mg/dL - Radiology Data Radiology results: report reviewed CT HEAD WITHOUT CONTRAST: HISTORY: Headache. TECHNIQUE: Sequential 2.5mm CT images. COMPARISON: 02/13/18. FINDINGS: Cerebral Parenchyma: Mild volume loss and chronic white matter changes are stable. Chronic focal infarcts are identified in both basal ganglia and right frontal white matter measuring up to 1 cm. No large chronic infarct. The remaining brain parenchyma is normal attenuation. Cerebellum: Within normal limits. Brainstem: Within normal limits. Ventricles: Normal. Sella: Normal. Extra-axial spaces: Normal. Basal Cisterns: Normal. Intracranial Hemorrhage: None. Midline Shift: None. Calvarium: Normal. Sinuses: Mucus retention cysts are noted in each maxillary sinus measuring 1 cm on the right and 2 cm on the left. The remaining sinuses are well-aerated. Mastoid Air Cells: Normal. Visualized Orbits: Normal. IMPRESSION: Chronic findings as described above. No acute intracranial process. - Medical Decision Making pt given albuterol, calcium, d50 and insulin for hyperkalemia, nephro consulted, admission for dialysis jean [facility], ct head neg, nonfocal exam. Improved after Stanley b/l foot pain, on going, no clinical signs of gout. Diminished pulses but present Hospitalist informed of admission - Differential Diagnosis ICH, hypertensive headache, tension headache, cluster headache, migraine Critical Care Time: No Critical care attestation.: If time is entered above; I have spent that time in minutes in the direct care of this critically ill patient, excluding procedure time. ED Disposition Clinical Impression: Headache, ESRD needing dialysis, Hyperkalemia Disposition: DC- OP ADMIT IP TO THIS HOSP Is pt being admited?: Yes Condition: Stable Time of Disposition: 15:03
--- NOTE | 2018-05-01 13:59 | Cat Scan Report ---
CT HEAD WITHOUT CONTRAST: HISTORY: Headache. TECHNIQUE: Sequential 2.5mm CT images. COMPARISON: 02/13/18. FINDINGS: Cerebral Parenchyma: Mild volume loss and chronic white matter changes are stable. Chronic focal infarcts are identified in both basal ganglia and right frontal white matter measuring up to 1 cm. No large chronic infarct. The remaining brain parenchyma is normal attenuation. Cerebellum: Within normal limits. Brainstem: Within normal limits. Ventricles: Normal. Sella: Normal. Extra-axial spaces: Normal. Basal Cisterns: Normal. Intracranial Hemorrhage: None. Midline Shift: None. Calvarium: Normal. Sinuses: Mucus retention cysts are noted in each maxillary sinus measuring 1 cm on the right and 2 cm on the left. The remaining sinuses are well-aerated. Mastoid Air Cells: Normal. Visualized Orbits: Normal. IMPRESSION: Chronic findings as described above. No acute intracranial process.
[2018-05-01 14:21] LABS: Basophils % (Auto) 0.2 % (0.0-1.8); Eosinophils # (Auto) 0.3 K/mm3 (0.0-0.4); Eosinophils % (Auto) 5.7 % (0.0-4.3); Hematocrit 48.1 % (35.5-45.6); Hemoglobin 15.7 gm/dl (11.8-15.2); Lymphocytes # (Auto) 1.3 K/mm3 (1.2-5.4); Lymphocytes % (Auto) 22.1 % (13.4-35.0); Mean Corpuscular HGB Conc 33 % (32-34); Mean Corpuscular Volume 100 fl (84-94); Monocytes # (Auto) 0.5 K/mm3 (0.0-0.8); Monocytes % (Auto) 8.9 % (0.0-7.3); Red Blood Count 4.81 M/mm3 (3.65-5.03); Red Cell Distribution Width 15.4 % (13.2-15.2)
[2018-05-01 14:27] LABS: Calcium 8.8 mg/dL (8.4-10.2)
[2018-05-01] MEDS ORDERED: HumuLIN R IV ONE (14:58)
[2018-05-01] MEDS ORDERED: PROVENTIL IH ONE (14:58)
[2018-05-01] MEDS ORDERED: D50W (25GM) Vial IV ONE (14:58)
[2018-05-01] MEDS ORDERED: CALCIUM GLUCONATE 1,000 MG in NACL 0.9% 100 ML IV ONE (14:58)
[2018-05-01 15:04] LABS: Platelet Count 122 K/mm3 (140-440)
[2018-05-01] MEDS ORDERED: NACL 0.9% 100 ML IV PRN (15:06)
--- NOTE | 2018-05-01 15:17 | Consultation ---
History of Present Illness - Reason for Consult Consult date: 05/01/18 end stage renal disease - History of Present Illness Very pleasant 62-year-old -[place] male with history of end-stage renal disease in the setting of hypertension, diabetes, with also an history of alcohol-induced liver cirrhosis, who is well known to our outpatient dialysis unit, presented to the emergency department secondary to headaches. The headache started this morning while in the dialysis unit and he was unable to be dialyzed. He was sent to the ER for further evaluation. CT scan of the head did not show any acute abnormalities. Labs noted with hyperkalemia with a potassium of 5.9. Blood pressures remain slightly elevated here in the emergency department. He is not in any acute distress at this time. Nephrology has been consulted at this time secondary to evaluation for his chronic dialysis needs. Past History Past Medical History: diabetes, dialysis, ESRD, hypertension, hyperlipidemia, renal failure Past Surgical History: Other (left brachiocephalic AV fistula) Social history: no significant social history Family history: diabetes, hypertension Medications and Allergies Allergies Allergy/AdvReac Type Severity Reaction Status Date / Time No Known Allergies Allergy Verified 02/28/17 00:21 Home Medications Medication Instructions Recorded Confirmed Last Taken Type Rosuvastatin Calcium [Crestor] 20 mg PO QHS 07/03/17 03/11/18 1 Day Ago History ~03/10/18 Sevelamer Carbonate [Renvela] 2,400 mg PO TIDWM 07/03/17 03/11/18 1 Day Ago History ~03/10/18 Aspirin [Aspirin BABY CHEW TAB] 81 mg PO QDAY #30 tab.chew 07/05/17 03/11/18 1 Day Ago Rx ~03/10/18 B Complex 11/Folic/C/Biot/Zinc 1 each PO DAILY 02/13/18 03/11/18 1 Day Ago History [Dialyvite with Zinc Tablet] ~03/10/18 Ergocalciferol (Vitamin D2) 50,000 unit PO QWEEK 02/13/18 03/11/18 1 Day Ago History [Drisdol] ~03/10/18 Omeprazole 20 mg PO QDAY 02/13/18 03/11/18 1 Day Ago History ~03/10/18 ISOSORBIDE MONOnitrate [Imdur ER] 30 mg PO DAILY #30 tablet 02/14/18 03/11/18 1 Day Ago Rx ~03/10/18 Metoprolol [Lopressor TAB] 12.5 mg PO BID #30 tablet 02/14/18 03/11/18 1 Day Ago Rx ~03/10/18 amLODIPine [Norvasc] 10 mg PO DAILY #30 tablet 02/14/18 03/11/18 1 Day Ago Rx ~03/10/18 Active Meds: Active Medications Sodium Chloride (Nacl 0.9%) 100 mls @ 999 mls/hr IV JEANINE PRN PRN Reason: Hypotension Review of Systems All systems: negative Constitutional: fatigue Neurological: headaches Exam - Vital Signs Vital signs: Vital Signs Temp Pulse Resp BP Pulse Ox 97.7 F 79 18 162/105 94 05/01/18 12:05/01/18 12:05/01/18 12:05/01/18 12:05/01/18 12:29 - General Appearance General appearance: well-developed, well-nourished, appears stated age EENT: ATNC, PERRL Neck: Present: neck supple, trachea midline Respiratory: Clear to Ascultation, Normal Exam Heart: regular, S1S2, other (left brachiocephalic AV fistula with appropriate thrill and bruit) Gastrointestinal: Present: normal, normoactive bowel sounds Integumentary: no rash, warm and dry Neurologic: no focal deficit, no asterixis, alert and oriented x3 Musculoskeletal: Present: other (-edema) Psychiatric: mood/affect appropriate, cooperative Results - Lab Results 05/01/18 13:49 05/01/18 13:49 Most recent lab results Calcium 8.8 mg/dL (8.4-10.2) 05/01/18 13:49 Assessment and Plan - Patient Problems (1) ESRD needing dialysis Current Visit: Yes Status: Chronic Plan to address problem: Patient is on a Friday outpatient hemodialysis schedule. We will write orders for hemodialysis today. Orders placed and I'm hopeful that he will be able to be dialyzed today if not first thing tomorrow morning. I also note that his hemoglobin levels are very high this afternoon. Touched base with his outpatient unit, and he has been off KATRINA therapy since February of this year. In a patient with end-stage renal disease I would prefer to obtain a renal ultrasound in order to rule out any possibility for renal carcinoma as a cause for this elevated hemoglobin levels. (2) Headache Current Visit: Yes Status: Acute Plan to address problem: CT had noted without any acute abnormalities. His headaches are improving at this time. He has no other focal neurologic deficits associated with the aforementioned headache. (3) Hyperkalemia Current Visit: Yes Status: Acute Plan to address problem: Patient is already receiving medical therapy here in the emergency department for his hyperkalemia. He is about to receive 10 mg of nebulized albuterol at this time. No acute EKG changes. Ensure that patient is on a low potassium diet. With dialysis we will use a 2K dialysate bath. (4) Hypertensive chronic kidney disease with stage 5 chronic kidney disease or end stage renal disease Current Visit: No Status: Chronic Plan to address problem: We'll continue patient on his home antihypertensive regimen at this time. We will challenge with UF on dialysis sessions. We will continue to monitor. (5) Type 2 diabetes mellitus with diabetic nephropathy Current Visit: No Status: Chronic Plan to address problem: Diabetes management per primary attending. (6) Secondary hyperparathyroidism (of renal origin) Current Visit: No Status: Chronic Plan to address problem: 4. Continue patient on home phosphate binders. We'll continue to monitor.
[2018-05-01] MEDS ORDERED: D50W (25GM) Syringe IV ONE (15:25)
--- NOTE | 2018-05-01 16:10 | History and Physical Report ---
History of Present Illness Chief complaint: Confused History of present illness: 62 YO Male with HTN, CVA, CHF, DM, ESRD on HD (M,W,F), Seizure Disorder not currently taking AED, CAD S/P Stent Placement presents to ED for evaluation. Pt is confused and unable to provide history. Pt history taken from ED Staff, and Dialysis Center Staff. As per staff, the patient experienced confusion, headache, and blurred vision while at dialysis. EMS notified, and upon arrival the patient was found to be in distress. Pt transported to [facility]. Pt seen and evaluated in ED and found to have Encephalopathy, ESRD, as well as symptoms consistent with Dialysis Disequilibrium Syndrome. PT admitted to Medical Floor. Nephrology team consulted in ED. Pt previous admission on 03/11/18 for ESRD and fluid Overload reviewed. All listed medication reconciled at time of admission. Past History Past Medical History: diabetes, dialysis, ESRD, hypertension, hyperlipidemia, renal failure Past Surgical History: Other (left brachiocephalic AV fistula) Social history: no significant social history Family history: diabetes, hypertension Medications and Allergies Allergies Allergy/AdvReac Type Severity Reaction Status Date / Time No Known Allergies Allergy Verified 02/28/17 00:21 Home Medications Medication Instructions Recorded Confirmed Last Taken Type Rosuvastatin Calcium [Crestor] 20 mg PO QHS 07/03/17 05/01/18 1 Day Ago History ~03/10/18 Sevelamer Carbonate [Renvela] 2,400 mg PO TIDWM 07/03/17 05/01/18 1 Day Ago History ~03/10/18 Aspirin [Aspirin BABY CHEW TAB] 81 mg PO QDAY #30 tab.chew 07/05/17 05/01/18 1 Day Ago Rx ~03/10/18 B Complex 11/Folic/C/Biot/Zinc 1 each PO DAILY 02/13/18 05/01/18 1 Day Ago History [Dialyvite with Zinc Tablet] ~03/10/18 Ergocalciferol (Vitamin D2) 50,000 unit PO QWEEK 02/13/18 05/01/18 1 Day Ago History [Drisdol] ~03/10/18 Omeprazole 20 mg PO QDAY 02/13/18 05/01/18 1 Day Ago History ~03/10/18 ISOSORBIDE MONOnitrate [Imdur ER] 30 mg PO DAILY #30 tablet 02/14/18 05/01/18 1 Day Ago Rx ~03/10/18 Metoprolol [Lopressor TAB] 12.5 mg PO BID #30 tablet 02/14/18 05/01/18 1 Day Ago Rx ~03/10/18 amLODIPine [Norvasc] 10 mg PO DAILY #30 tablet 02/14/18 05/01/18 1 Day Ago Rx ~03/10/18 Active Meds: Active Medications Sodium Chloride (Nacl 0.9%) 100 mls @ 999 mls/hr IV JEANINE PRN PRN Reason: Hypotension Review of Systems ROS unobtainable: due to mental status Exam - Constitutional Vitals: Temp Pulse Resp BP Pulse Ox 97.7 F 89 18 170/96 96 05/01/18 12:38 05/01/18 16:01 05/01/18 16:01 05/01/18 15:15 05/01/18 15:15 General appearance: Present: mild distress - EENT Eyes: Present: PERRL ENT: hearing intact, clear oral mucosa - Neck Neck: Present: supple, normal ROM - Respiratory Respiratory effort: normal Respiratory: bilateral: CTA - Cardiovascular Heart Sounds: Present: S1 & S2. Absent: rub, click - Extremities Extremities: pulses symmetrical, No edema Peripheral Pulses: within normal limits - Abdominal General gastrointestinal: Present: soft, non-tender, non-distended, normal bowel sounds Male genitourinary: Present: normal - Integumentary Integumentary: Present: clear, warm, dry - Musculoskeletal Musculoskeletal: gait normal, strength equal bilaterally - Psychiatric Psychiatric: no appropriate mood/affect, no intact judgment & insight, no memory intact - Neurologic Neurologic: CNII-XII intact, no focal deficits, moves all extremities, no gait normal Results - Labs CBC & Chem 7: 05/01/18 13:49 05/01/18 13:49 Labs: Abnormal lab results 05/01/18 05/01/18 Range/Units 13:49 13:49 Hgb 15.7 H (11.8-15.2) gm/dl Hct 48.1 H (35.5-45.6) % MCV 100 H (84-94) fl MCH 33 H (28-32) pg RDW 15.4 H (13.2-15.2) % Plt Count 122 L (140-440) K/mm3 [place] % (Auto) 8.9 H (0.0-7.3) % Eos % (Auto) 5.7 H (0.0-4.3) % Potassium 5.9 H (3.6-5.0) mmol/L Chloride 97.8 L (98-107) mmol/L BUN 43 H (9-20) mg/dL Creatinine 8.6 H (0.8-1.5) mg/dL Glucose 105 H (75-100) mg/dL Assessment and Plan - Patient Problems (1) ESRD needing dialysis Current Visit: Yes Status: Chronic Plan to address problem: Nephrology consulted in ED, dialysis as per renal team, avoid nephrotoxic agents, strict I/O, daily weight, monitor uop q shift, (2) Encephalopathy Current Visit: Yes Status: Acute Plan to address problem: CT head, neuro checks, aspiration precautions, seizure precautions, (3) Dialysis disequilibrium syndrome Current Visit: Yes Status: Acute Plan to address problem: CT Head, neuro checks, gentle IVF resuscitation, supportive care. (4) Diabetes Current Visit: Yes Status: Acute Plan to address problem: AD diet, insulin, accu check, (5) Seizure Current Visit: No Status: Acute Qualifiers: Convulsion type: unspecified Qualified Code(s): R56.9 - Unspecified convulsions Plan to address problem: Neuro checks, no seizure activity at time of admission, seizure precautions, (6) DVT prophylaxis Current Visit: Yes Status: Acute Plan to address problem: SCD to BLE while in bed.
[2018-05-01] MEDS ORDERED: SODIUM CHLORIDE FLUSH SYRINGE 10 ML IV PRN (16:20)
[2018-05-01] MEDS ORDERED: TYLENOL PO PRN (16:20)
[2018-05-01] MEDS ORDERED: ZOFRAN IV PRN (16:20)
[2018-05-01] MEDS ORDERED: NACL 0.45% 1000 ML 500 ML IV SCH (17:00)
--- NOTE | 2018-05-01 21:10 | Ultrasound Report ---
PROCEDURE: US RENAL BILAT TECHNIQUE: Real-time sonography in multiple planes of the kidneys, ureters and urinary bladder was p erformed with image documentation. HISTORY: kidney failure COMPARISONS: None . FINDINGS: RIGHT kidney: Normal echotexture. No focal renal mass, calculus, or hydronephrosis. Length: 10.8 cm . LEFT kidney: Normal echotexture. No focal renal mass, calculus, or hydronephrosis. Length: 8.7 cm. Bladder: Normal. No distention or wall thickening. IMPRESSION: Normal Examination . This document is electronically signed by Eduarda Hdz DO., May 01 2018 09:09:01 PM ET
[2018-05-01] MEDS: LOPRESSOR PO SCH (21:12)
[2018-05-01] MEDS ORDERED: NON-FORMULARY (Rosuvastatin Calcium [Crestor] 20 MG) PO SCH (22:00)
[2018-05-02] MEDS: PERCOCET 5/325 PO PRN ×2 (01:59→09:56)
[2018-05-02] MEDS: SODIUM CHLORIDE FLUSH SYRINGE 10 ML IV SCH ×3 (02:16→22:49)
[2018-05-02] MEDS: RENVELA PO SCH ×3 (08:33→17:00)
[2018-05-02 08:55] LABS: Calcium 8.9 mg/dL (8.4-10.2)
[2018-05-02] MEDS: BABY ASPIRIN PO SCH (09:56)
[2018-05-02] MEDS: PROTONIX PO SCH (09:56)
[2018-05-02] MEDS ORDERED: NON-FORMULARY (Omeprazole [Omeprazole] 20 MG) PO SCH (10:00)
[2018-05-02] MEDS ORDERED: NORVASC PO SCH (10:00)
--- NOTE | 2018-05-02 11:38 | Progress Note ---
Assessment and Plan Assessment and plan: 62 YO Male with HTN, CVA, CHF, DM, ESRD on HD (M,W,F), Seizure Disorder not currently taking AED, CAD S/P Stent Placement presents to ED for evaluation. Pt is confused and unable to provide history. The patient gets intermittent confusion with this headache. Pt history taken from ED Staff, and Dialysis Center Staff. As per staff, the patient experienced confusion, headache, and blurred vision while at dialysis. EMS notified, and upon arrival the patient was found to be in distress. Pt transported to [facility]. Pt seen and evaluated in ED and found to have Encephalopathy, ESRD, as well as symptoms consistent with Dialysis Disequilibrium Syndrome. PT admitted to Medical Floor. Nephrology team consulted in ED. Pt previous admission on 03/11/18 for ESRD and fluid Overload reviewed. All listed medication reconciled at time of admission. CT HEAD WITHOUT CONTRAST: HISTORY: Headache. TECHNIQUE: Sequential 2.5mm CT images. COMPARISON: 02/13/18. FINDINGS: Cerebral Parenchyma: Mild volume loss and chronic white matter changes are stable. Chronic focal infarcts are identified in both basal ganglia and right frontal white matter measuring up to 1 cm. No large chronic infarct. The remaining brain parenchyma is normal attenuation. Cerebellum: Within normal limits. Brainstem: Within normal limits. Ventricles: Normal. Sella: Normal. Extra-axial spaces: Normal. Basal Cisterns: Normal. Intracranial Hemorrhage: None. Midline Shift: None. Calvarium: Normal. Sinuses: Mucus retention cysts are noted in each maxillary sinus measuring 1 cm on the right and 2 cm on the left. The remaining sinuses are well-aerated. Mastoid Air Cells: Normal. Visualized Orbits: Normal. IMPRESSION: Chronic findings as described above. No acute intracranial process. - Medical Decision Making pt given albuterol, calcium, d50 and insulin for hyperkalemia, nephro consulted, admission for dialysis saeed, ct head neg, nonfocal exam. Improved after Wrights b/l foot pain, on going, no clinical signs of gout. Diminished pulses but present Hospitalist informed of admission (1) ESRD needing dialysis Current Visit: Yes Status: Chronic Plan to address problem: Nephrology consulted in ED, unable to noted. Dialysis as per renal team, avoid nephrotoxic agents, strict I/O, daily weight, monitor uop q shift, (2) Encephalopathy Current Visit: Yes Status: Acute Plan to address problem: CT head negative for any acute pathology if not contraindicated and if consultation persists will obtain an MRI of this time no indication for it., neuro checks, aspiration precautions, seizure precautions, (3) Dialysis disequilibrium syndrome Current Visit: Yes Status: Acute Plan to address problem: CT Head, neuro checks, gentle IVF resuscitation, supportive care. (4) Diabetes Current Visit: Yes Status: Acute Plan to address problem: AD diet, insulin, accu check, (5) Seizure Current Visit: No Status: Acute Qualifiers: Convulsion type: unspecified Qualified Code(s): R56.9 - Unspecified convulsions Plan to address problem: Neuro checks, no seizure activity at time of admission, seizure precautions, (6) hypertensive urgency Continue BP meds, change norvasc to verapamil (7) Neuropathy -Trial of gabapentin. discussed and okayd with nephrology (7)DVT prophylaxis Current Visit: Yes Status: Acute Plan to address problem: SCD to BLE while in bed. plan discussed with the patient History Interval history: Patient was examined no acute distress at this time reports improvement in the headache. Reports that headache has been ongoing for 1 week and sometimes associated with blurred vision. He also reports of neuropathy at the left lower leg. The pain on the head normally goes from her head to the leg rates the pain at this time at 5/10 Hospitalist Physical - Physical exam Narrative exam: VITAL SIGNS: Reviewed. GENERAL: The patient appeared well nourished and normally developed, Vital signs as documented. HEAD: No signs of head trauma. EYES: Pupils are equal. Extraocular motions intact. EARS: Hearing grossly intact. MOUTH: Oropharynx is normal. NECK: No adenopathy, no JVD. CHEST: Chest with clear breath sounds bilaterally. No wheezes, rales, or rhonchi. CARDIAC: Regular rate and rhythm. S1 and S2, without murmurs, gallops, or rubs. VASCULAR: No Edema. Peripheral pulses normal and equal in all extremities. ABDOMEN: Soft, non tender and non distended. No rebound or guarding, and no masses palpated. Bowel Sounds normal. MUSCULOSKELETAL: Good range of motion of all major joints. Extremities without clubbing, cyanosis or edema. NEUROLOGIC EXAM: Alert and oriented x 3 No focal sensory or strength deficits. Speech normal. Follows commands. PSYCHIATRIC: Mood normal. SKIN: No rash or lesions. - Constitutional Vitals: Temp Pulse Resp BP Pulse Ox 97.7 F 68 20 166/88 93 05/02/18 05:18 05/02/18 05:18 05/02/18 05:18 05/02/18 05:18 05/02/18 05:18 General appearance: Present: mild distress Results - Labs CBC & Chem 7: 05/02/18 14:41 05/02/18 08:04 Labs: Laboratory Last Values WBC 5.7 K/mm3 (4.5-11.0) 05/01/18 13:49 RBC 4.81 M/mm3 (3.65-5.03) 05/01/18 13:49 Hgb 15.7 gm/dl (11.8-15.2) H 05/01/18 13:49 Hct 48.1 % (35.5-45.6) H 05/01/18 13:49 MCV 100 fl (84-94) H 05/01/18 13:49 MCH 33 pg (28-32) H 05/01/18 13:49 MCHC 33 % (32-34) 05/01/18 13:49 RDW 15.4 % (13.2-15.2) H 05/01/18 13:49 Plt Count 122 K/mm3 (140-440) L 05/01/18 13:49 Lymph % (Auto) 22.1 % (13.4-35.0) 05/01/18 13:49 [place] % (Auto) 8.9 % (0.0-7.3) H 05/01/18 13:49 Eos % (Auto) 5.7 % (0.0-4.3) H 05/01/18 13:49 Baso % (Auto) 0.2 % (0.0-1.8) 05/01/18 13:49 Lymph # 1.3 K/mm3 (1.2-5.4) 05/01/18 13:49 [place] # 0.5 K/mm3 (0.0-0.8) 05/01/18 13:49 Eos # 0.3 K/mm3 (0.0-0.4) 05/01/18 13:49 Baso # 0.0 K/mm3 (0.0-0.1) 05/01/18 13:49 Seg Neutrophils % 63.1 % (40.0-70.0) 05/01/18 13:49 Seg Neutrophils # 3.6 K/mm3 (1.8-7.7) 05/01/18 13:49 Sodium 138 mmol/L (137-145) 05/02/18 08:04 Potassium 4.9 mmol/L (3.6-5.0) 05/02/18 08:04 Chloride 94.9 mmol/L (98-107) L 05/02/18 08:04 Carbon Dioxide 26 mmol/L (22-30) 05/02/18 08:04 Anion Gap 22 mmol/L 05/02/18 08:04 BUN 50 mg/dL (9-20) H 05/02/18 08:04 Creatinine 9.9 mg/dL (0.8-1.5) H 05/02/18 08:04 Estimated GFR 6 ml/min 05/02/18 08:04 BUN/Creatinine Ratio 5 % 05/02/18 08:04 Glucose 88 mg/dL (75-100) 05/02/18 08:04 POC Glucose 69 (70-105) L 05/02/18 07:44 Calcium 8.9 mg/dL (8.4-10.2) 05/02/18 08:04 Active Medications - Current Medications Current Medications: Generic Name Dose Route Start Last Admin Trade Name Freq PRN Reason Stop Dose Admin Acetaminophen 650 mg 05/01/18 16:20 05/01/18 21:13 Tylenol PO 650 mg Q4H PRN Administration Pain MILD(1-3)/Fever >100.5/SAEED Amlodipine Besylate 10 mg 05/02/18 10:00 Norvasc PO DAILY GORDO Aspirin 81 mg 05/02/18 10:00 05/02/18 09:56 Baby Aspirin PO 81 mg QDAY GORDO Administration Atorvastatin Calcium 40 mg 05/01/18 22:00 05/01/18 21:12 Lipitor PO 40 mg QHS GORDO Administration Ergocalciferol 50,000 unit 05/07/18 10:00 Vitamin D2 PO Th GORDO Sodium Chloride 100 mls @ 999 mls/hr 05/01/18 15:06 Nacl 0.9% IV JEANINE PRN Hypotension Sodium Chloride 500 mls @ 42 mls/hr 05/01/18 17:00 Nacl 0.45% 1000 Ml IV DIRECT GORDO Isosorbide Mononitrate 30 mg 05/02/18 10:00 Imdur PO DAILY GORDO Metoprolol Tartrate 12.5 mg 05/01/18 22:00 05/01/18 21:12 Lopressor PO 12.5 mg BID GORDO Administration Multivit/Ca Carb/B Cmplx/FA/Prenat 1 cap 05/02/18 10:00 Renal Caps PO QDAY GORDO Ondansetron HCl 4 mg 05/01/18 16:20 05/01/18 21:12 Zofran IV 4 mg Q8H PRN Administration Nausea And Vomiting Oxycodone/Acetaminophen 1 tab 05/01/18 22:16 05/02/18 09:56 Percocet 5/325 PO 1 tab Q6H PRN Administration Pain, Moderate (4-6) Pantoprazole Sodium 20 mg 05/02/18 10:00 05/02/18 09:56 Protonix PO 20 mg QDAY GORDO Administration Sevelamer Carbonate 2,400 mg 05/02/18 08:00 05/02/18 08:33 Renvela PO 2,400 mg TIDWM GORDO Administration Sodium Chloride 10 ml 05/01/18 22:00 05/02/18 09:58 Sodium Chloride Flush Syringe 10 Ml IV 10 ml BID GORDO Administration Sodium Chloride 10 ml 05/01/18 16:20 Sodium Chloride Flush Syringe 10 Ml IV PRN PRN LINE FLUSH
--- NOTE | 2018-05-02 14:00 | Progress Note ---
Assessment and Plan - Patient Problems (1) ESRD needing dialysis Current Visit: Yes Status: Chronic Plan to address problem: HD today, cont HD on MWF schedule therafter. Renal US showed normal exam (2) Headache Current Visit: Yes Status: Acute Plan to address problem: CT had noted without any acute abnormalities. His headaches are improving at this time. (3) Hyperkalemia Current Visit: Yes Status: Acute Plan to address problem: improved with medical therapy, cont low potassium diet. With dialysis we will use a 2K dialysate bath. (4) Hypertensive chronic kidney disease with stage 5 chronic kidney disease or end stage renal disease Current Visit: No Status: Acute Plan to address problem: We'll continue patient on his home antihypertensive regimen at this time. We will challenge with UF on dialysis sessions. (5) Diabetes Current Visit: Yes Status: Chronic Qualifiers: Diabetes mellitus type: type 2 Diabetes mellitus complication status: with kidney complications Chronic kidney disease stage: on chronic dialysis Plan to address problem: Diabetes management per primary attending. (6) Secondary hyperparathyroidism (of renal origin) Current Visit: No Status: Chronic Plan to address problem: Continue patient on home phosphate binders. We'll continue to monitor. Subjective Date of service: 05/02/18 Principal diagnosis: ESRD Interval history: pt awake alert, no acute complaints Objective - Vital Signs Vital signs: Vital Signs - 12hr 05/02/18 05/02/18 05:18 11:47 Temperature 97.7 F 97.5 F L Pulse Rate 68 73 Respiratory 20 18 Rate Blood Pressure 166/88 159/84 O2 Sat by Pulse 93 96 Oximetry - General Appearance General appearance: well-developed, well-nourished, appears stated age EENT: ATNC, PERRL, mucous membranes moist Neck: no JVD Respiratory: Present: Clear to Ascultation Cardiology: regular, S1S2 Gastrointestinal: normoactive bowel sounds Integumentary: no rash, other (no edema ) Neurologic: no focal deficit, alert and oriented x3, strength 5/5, CN 3-12 intact Psychiatric: mood/affect appropriate, cooperative - Lab 05/01/18 13:49 05/02/18 08:04 Most recent lab results Calcium 8.9 mg/dL (8.4-10.2) 05/02/18 08:04 Medications & Allergies - Medications Allergies/Adverse Reactions: Allergies No Known Allergies Allergy (Verified 02/28/17 00:21) Home Medications: Home Medications Medication Instructions Recorded Confirmed Last Taken Type Rosuvastatin Calcium [Crestor] 20 mg PO QHS 07/03/17 05/01/18 1 Day Ago History ~03/10/18 Sevelamer Carbonate [Renvela] 2,400 mg PO TIDWM 07/03/17 05/01/18 1 Day Ago History ~03/10/18 Aspirin [Aspirin BABY CHEW TAB] 81 mg PO QDAY #30 tab.chew 07/05/17 05/01/18 1 Day Ago Rx ~03/10/18 B Complex 11/Folic/C/Biot/Zinc 1 each PO DAILY 02/13/18 05/01/18 1 Day Ago History [Dialyvite with Zinc Tablet] ~03/10/18 Ergocalciferol (Vitamin D2) 50,000 unit PO QWEEK 02/13/18 05/01/18 1 Day Ago History [Drisdol] ~03/10/18 Omeprazole 20 mg PO QDAY 02/13/18 05/01/18 1 Day Ago History ~03/10/18 ISOSORBIDE MONOnitrate [Imdur ER] 30 mg PO DAILY #30 tablet 02/14/18 05/01/18 1 Day Ago Rx ~03/10/18 Metoprolol [Lopressor TAB] 12.5 mg PO BID #30 tablet 02/14/18 05/01/18 1 Day Ago Rx ~03/10/18 amLODIPine [Norvasc] 10 mg PO DAILY #30 tablet 02/14/18 05/01/18 1 Day Ago Rx ~03/10/18 Active Medications: Generic Name Dose Route Start Last Admin Trade Name Freq PRN Reason Stop Dose Admin Acetaminophen 650 mg 05/01/18 16:20 05/01/18 21:13 Tylenol PO 650 mg Q4H PRN Administration Pain MILD(1-3)/Fever >100.5/SAEED Amlodipine Besylate 10 mg 05/02/18 10:00 Norvasc PO DAILY GORDO Aspirin 81 mg 05/02/18 10:00 05/02/18 09:56 Baby Aspirin PO 81 mg QDAY GORDO Administration Atorvastatin Calcium 40 mg 05/01/18 22:00 05/01/18 21:12 Lipitor PO 40 mg QHS GORDO Administration Ergocalciferol 50,000 unit 05/07/18 10:00 Vitamin D2 PO Th GORDO Sodium Chloride 100 mls @ 999 mls/hr 05/01/18 15:06 Nacl 0.9% IV JEANINE PRN Hypotension Sodium Chloride 500 mls @ 42 mls/hr 05/01/18 17:00 Nacl 0.45% 1000 Ml IV DIRECT GORDO Isosorbide Mononitrate 30 mg 05/02/18 10:00 Imdur PO DAILY GORDO Metoprolol Tartrate 12.5 mg 05/01/18 22:00 05/01/18 21:12 Lopressor PO 12.5 mg BID GORDO Administration Multivit/Ca Carb/B Cmplx/FA/Prenat 1 cap 05/02/18 10:00 Renal Caps PO QDAY GORDO Ondansetron HCl 4 mg 05/01/18 16:20 05/01/18 21:12 Zofran IV 4 mg Q8H PRN Administration Nausea And Vomiting Oxycodone/Acetaminophen 1 tab 05/01/18 22:16 05/02/18 09:56 Percocet 5/325 PO 1 tab Q6H PRN Administration Pain, Moderate (4-6) Pantoprazole Sodium 20 mg 05/02/18 10:00 05/02/18 09:56 Protonix PO 20 mg QDAY GORDO Administration Sevelamer Carbonate 2,400 mg 05/02/18 08:00 05/02/18 08:33 Renvela PO 2,400 mg TIDWM GORDO Administration Sodium Chloride 10 ml 05/01/18 22:00 05/02/18 09:58 Sodium Chloride Flush Syringe 10 Ml IV 10 ml BID GORDO Administration Sodium Chloride 10 ml 05/01/18 16:20 Sodium Chloride Flush Syringe 10 Ml IV PRN PRN LINE FLUSH
[2018-05-02] MEDS ORDERED: NEURONTIN PO SCH (15:00)
[2018-05-02 15:04] LABS: Basophils % (Auto) 0.8 % (0.0-1.8); Eosinophils # (Auto) 0.4 K/mm3 (0.0-0.4); Eosinophils % (Auto) 6.9 % (0.0-4.3); Hematocrit 38.9 % (35.5-45.6); Lymphocytes # (Auto) 1.2 K/mm3 (1.2-5.4); Lymphocytes % (Auto) 23.7 % (13.4-35.0); Mean Corpuscular HGB Conc 34 % (32-34); Mean Corpuscular Volume 100 fl (84-94); Monocytes # (Auto) 0.5 K/mm3 (0.0-0.8); Monocytes % (Auto) 9.9 % (0.0-7.3); Platelet Count 213 K/mm3 (140-440); Red Blood Count 3.89 M/mm3 (3.65-5.03); Red Cell Distribution Width 15.2 % (13.2-15.2)
[2018-05-02] MEDS: IMDUR PO SCH (17:01)
[2018-05-02] MEDS: Renal Caps PO SCH (17:01)
[2018-05-02] MEDS: LOPRESSOR PO SCH ×2 (17:02→22:48)
[2018-05-02] MEDS: CALAN PO SCH ×2 (17:07→22:47)
[2018-05-02] MEDS: NEURONTIN PO SCH (22:47)
[2018-05-03] MEDS: PERCOCET 5/325 PO PRN ×2 (03:08→12:43)
[2018-05-03] MEDS: CALAN PO SCH (06:38)
[2018-05-03 09:04] LABS: Hematocrit 35.3 % (35.5-45.6); Hemoglobin 11.9 gm/dl (11.8-15.2); Mean Corpuscular HGB Conc 34 % (32-34); Mean Corpuscular Volume 99 fl (84-94); Platelet Count 189 K/mm3 (140-440); Red Blood Count 3.55 M/mm3 (3.65-5.03); Red Cell Distribution Width 15.1 % (13.2-15.2)
[2018-05-03 09:23] LABS: Calcium 8.8 mg/dL (8.4-10.2)
[2018-05-03] MEDS: LOPRESSOR PO SCH (09:24)
[2018-05-03] MEDS: Renal Caps PO SCH (09:24)
[2018-05-03] MEDS: BABY ASPIRIN PO SCH (09:24)
[2018-05-03] MEDS: RENVELA PO SCH ×2 (09:24→12:36)
[2018-05-03] MEDS: PROTONIX PO SCH (09:24)
[2018-05-03] MEDS: NEURONTIN PO SCH (09:25)
[2018-05-03] MEDS: IMDUR PO SCH (09:26)
[2018-05-03] MEDS: SODIUM CHLORIDE FLUSH SYRINGE 10 ML IV SCH (09:27)
--- NOTE | 2018-05-03 11:49 | Progress Note ---
Assessment and Plan - Patient Problems (1) ESRD needing dialysis Current Visit: Yes Status: Chronic Plan to address problem: HD today, cont HD on MWF schedule therafter. Renal US showed normal exam (2) Headache Current Visit: Yes Status: Acute Plan to address problem: CT had noted without any acute abnormalities. His headaches are improving with gabapentine, also amlodipine changed to verapamil for migraine prophylaxis. (3) Hyperkalemia Current Visit: Yes Status: Acute Plan to address problem: improved with medical therapy, cont low potassium diet. With dialysis we will use a 2K dialysate bath. (4) Hypertensive chronic kidney disease with stage 5 chronic kidney disease or end stage renal disease Current Visit: No Status: Acute Plan to address problem: We'll continue patient on his home antihypertensive regimen at this time. We will challenge with UF on dialysis sessions. (5) Diabetes Current Visit: Yes Status: Chronic Qualifiers: Diabetes mellitus type: type 2 Diabetes mellitus complication status: with kidney complications Chronic kidney disease stage: on chronic dialysis Plan to address problem: Diabetes management per primary attending. (6) Secondary hyperparathyroidism (of renal origin) Current Visit: No Status: Chronic Plan to address problem: Continue patient on home phosphate binders. We'll continue to monitor. Subjective Date of service: 05/03/18 Principal diagnosis: ESRD Interval history: pt awake alert, no acute complaints Objective - Vital Signs Vital signs: Vital Signs - 12hr 05/03/18 05/03/18 05/03/18 06:36 06:38 09:24 Temperature 98.1 F Pulse Rate 62 60 62 Respiratory 18 Rate Blood Pressure 123/76 123/76 123/76 O2 Sat by Pulse 97 Oximetry 05/03/18 09:26 Temperature Pulse Rate 62 Respiratory Rate Blood Pressure 123/76 O2 Sat by Pulse Oximetry - General Appearance General appearance: well-developed, well-nourished, appears stated age EENT: ATNC, PERRL, mucous membranes moist Neck: no JVD Respiratory: Present: Clear to Ascultation Cardiology: regular, S1S2 Gastrointestinal: normoactive bowel sounds Integumentary: no rash, other (no edema ) Neurologic: no focal deficit, alert and oriented x3, strength 5/5, CN 3-12 intact Psychiatric: mood/affect appropriate, cooperative - Lab 05/03/18 08:07 05/03/18 08:07 Most recent lab results Calcium 8.8 mg/dL (8.4-10.2) 05/03/18 08:07 Medications & Allergies - Medications Allergies/Adverse Reactions: Allergies No Known Allergies Allergy (Verified 02/28/17 00:21) Home Medications: Home Medications Medication Instructions Recorded Confirmed Last Taken Type Rosuvastatin Calcium [Crestor] 20 mg PO QHS 07/03/17 05/01/18 1 Day Ago History ~03/10/18 Sevelamer Carbonate [Renvela] 2,400 mg PO TIDWM 07/03/17 05/01/18 1 Day Ago History ~03/10/18 Aspirin [Aspirin BABY CHEW TAB] 81 mg PO QDAY #30 tab.chew 07/05/17 05/01/18 1 Day Ago Rx ~03/10/18 B Complex 11/Folic/C/Biot/Zinc 1 each PO DAILY 02/13/18 05/01/18 1 Day Ago History [Dialyvite with Zinc Tablet] ~03/10/18 Ergocalciferol (Vitamin D2) 50,000 unit PO QWEEK 02/13/18 05/01/18 1 Day Ago History [Drisdol] ~03/10/18 Omeprazole 20 mg PO QDAY 02/13/18 05/01/18 1 Day Ago History ~03/10/18 ISOSORBIDE MONOnitrate [Imdur ER] 30 mg PO DAILY #30 tablet 02/14/18 05/01/18 1 Day Ago Rx ~03/10/18 Metoprolol [Lopressor TAB] 12.5 mg PO BID #30 tablet 02/14/18 05/01/18 1 Day Ago Rx ~03/10/18 amLODIPine [Norvasc] 10 mg PO DAILY #30 tablet 02/14/18 05/01/18 1 Day Ago Rx ~03/10/18 Active Medications: Generic Name Dose Route Start Last Admin Trade Name Freq PRN Reason Stop Dose Admin Acetaminophen 650 mg 05/01/18 16:20 05/01/18 21:13 Tylenol PO 650 mg Q4H PRN Administration Pain MILD(1-3)/Fever >100.5/SAEED Aspirin 81 mg 05/02/18 10:00 05/03/18 09:24 Baby Aspirin PO 81 mg QDAY GORDO Administration Atorvastatin Calcium 40 mg 05/01/18 22:00 05/02/18 22:47 Lipitor PO 40 mg QHS GORDO Administration Ergocalciferol 50,000 unit 05/07/18 10:00 Vitamin D2 PO Th GORDO Gabapentin 100 mg 05/02/18 22:00 05/03/18 09:25 Neurontin PO 100 mg BID GORDO Administration Sodium Chloride 100 mls @ 999 mls/hr 05/01/18 15:06 Nacl 0.9% IV JEANINE PRN Hypotension Isosorbide Mononitrate 30 mg 05/02/18 10:00 05/03/18 09:26 Imdur PO 30 mg DAILY GORDO Administration Metoprolol Tartrate 12.5 mg 05/01/18 22:00 05/03/18 09:24 Lopressor PO 12.5 mg BID [facility] Administration Multivit/Ca Carb/B Cmplx/FA/Prenat 1 cap 05/02/18 10:00 05/03/18 09:24 Renal Caps PO 1 cap QDAY [facility] Administration Ondansetron HCl 4 mg 05/01/18 16:20 05/01/18 21:12 Zofran IV 4 mg Q8H PRN Administration Nausea And Vomiting Oxycodone/Acetaminophen 1 tab 05/01/18 22:16 05/03/18 03:08 Percocet 5/325 PO 1 tab Q6H PRN Administration Pain, Moderate (4-6) Pantoprazole Sodium 20 mg 05/02/18 10:00 05/03/18 09:24 Protonix PO 20 mg QDAY GORDO Administration Sevelamer Carbonate 2,400 mg 05/02/18 08:00 05/03/18 09:24 Renvela PO 2,400 mg TIDWM GORDO Administration Sodium Chloride 10 ml 05/01/18 22:00 05/03/18 09:27 Sodium Chloride Flush Syringe 10 Ml IV 10 ml BID GORDO Administration Sodium Chloride 10 ml 05/01/18 16:20 Sodium Chloride Flush Syringe 10 Ml IV PRN PRN LINE FLUSH Verapamil HCl 80 mg 05/02/18 15:00 05/03/18 06:38 [place]an PO Not Given Q8HR [facility]
[2018-05-03 12:13] VITALS: BP 154/81
--- NOTE | 2018-05-03 12:47 | Discharge Summary ---
Providers - Providers Date of Admission: 05/01/18 16:20 Attending physician: VICTOR MANUEL DIANA MD 05/01/18 14:54 Consult to Physician [CONS] Urgent Comment: Consulting Provider: BONY DOBBS Physician Instructions: Reason For Exam: esrd needing dialysis Primary care physician: TREY JOHNSON Hospitalization Reason for admission: encephalopathy Condition: Stable Hospital course: 62 YO Male with HTN, CVA, CHF, DM, ESRD on HD (M,W,F), Seizure Disorder not currently taking AED, CAD S/P Stent Placement presents to ED for evaluation. Pt is confused and unable to provide history. The patient gets intermittent confusion with this headache. Pt history taken from ED Staff, and Dialysis Center Staff. As per staff, the patient experienced confusion, headache, and blurred vision while at dialysis. EMS notified, and upon arrival the patient was found to be in distress. Pt transported to [facility]. Pt seen and evaluated in ED and found to have Encephalopathy, ESRD, as well as symptoms consistent with Dialysis Disequilibrium Syndrome. PT admitted to Medical Floor. Nephrology team consulted in ED. Pt previous admission on 03/11/18 for ESRD and fluid Overload reviewed. All listed medication reconciled at time of admission. CT HEAD WITHOUT CONTRAST: HISTORY: Headache. TECHNIQUE: Sequential 2.5mm CT images. COMPARISON: 02/13/18. FINDINGS: Cerebral Parenchyma: Mild volume loss and chronic white matter changes are stable. Chronic focal infarcts are identified in both basal ganglia and right frontal white matter measuring up to 1 cm. No large chronic infarct. The remaining brain parenchyma is normal attenuation. Cerebellum: Within normal limits. Brainstem: Within normal limits. Ventricles: Normal. Sella: Normal. Extra-axial spaces: Normal. Basal Cisterns: Normal. Intracranial Hemorrhage: None. Midline Shift: None. Calvarium: Normal. Sinuses: Mucus retention cysts are noted in each maxillary sinus measuring 1 cm on the right and 2 cm on the left. The remaining sinuses are well-aerated. Mastoid Air Cells: Normal. Visualized Orbits: Normal. IMPRESSION: Chronic findings as described above. No acute intracranial process. In the ED pt given albuterol, calcium, d50 and insulin for hyperkalemia, nephro consulted, admission for dialysis [facility] [place], ct head neg, nonfocal exam. Improved after [place] b/l foot pain, on going, no clinical signs of gout. Diminished pulses but present On the next day following admission, he reported headache which has been ongoing for a week with associated blurry vision and had resolved also reported left leg neuropathy and was started on gabapentin following discussion with Nephrology. (1) ESRD needing dialysis (2) Encephalopathy metabolic (3) Dialysis disequilibrium syndrome (4) Diabetes (5) Seizure (6) hypertensive urgency Continue BP meds, change norvasc to verapamil (7) Neuropathy -Trial of gabapentin. discussed and okayed with nephrology Disposition: DC-01 TO HOME OR SELFCARE Time spent for discharge: 35 mins Core Measure Documentation - Palliative Care Palliative Care/ Comfort Measures: Not Applicable - Core Measures Any of the following diagnoses?: none Exam - Physical Exam Narrative exam: VITAL SIGNS: Reviewed. GENERAL: The patient appeared well nourished and normally developed, Vital signs as documented. HEAD: No signs of head trauma. EYES: Pupils are equal. Extraocular motions intact. EARS: Hearing grossly intact. MOUTH: Oropharynx is normal. NECK: No adenopathy, no JVD. CHEST: Chest with clear breath sounds bilaterally. No wheezes, rales, or rhonchi. CARDIAC: Regular rate and rhythm. S1 and S2, without murmurs, gallops, or rubs. VASCULAR: No Edema. Peripheral pulses normal and equal in all extremities. ABDOMEN: Soft, non tender and non distended. No rebound or guarding, and no masses palpated. Bowel Sounds normal. MUSCULOSKELETAL: Good range of motion of all major joints. Extremities without clubbing, cyanosis or edema. NEUROLOGIC EXAM: Alert and oriented x 3 No focal sensory or strength deficits. Speech normal. Follows commands. PSYCHIATRIC: Mood normal. SKIN: No rash or lesions. - Constitutional Vitals: Temp Pulse Resp BP Pulse Ox 97.9 F 64 20 154/81 98 05/03/18 12:07 05/03/18 12:07 05/03/18 12:07 05/03/18 12:07 05/03/18 12:07 Plan Activity: advance as tolerated, fall precautions Diet: low fat, diabetic Special Instructions: record daily BP diary, record blood sugar diary Follow up with: TREY JOHNSON MD [Primary Care Provider] - 7 Days STORM SENIOR MD [Staff Physician] - 7 Days Prescriptions: Verapamil [Calan] 80 mg PO Q8HR #90 tablet Gabapentin [Neurontin] 100 mg PO BID #60 capsule
[2018-05-03] MEDS ORDERED: NACL 0.9 (PRIMING MACHINE ONLY DIALYSIS) MC ONE (20:28)
[2018-05-07] MEDS ORDERED: VITAMIN D2 PO SCH (10:00)
== END 2018-05-03 15:11 | disposition home or self-care (01) | DRG 640 ==
LOC: ED 12:07 → 3A 16:20
PROVIDERS: ADMIT Internal Medicine; ATTEND Internal Medicine
PROC: 5A1D70Z Performance of Urinary Filtration, Intermittent, Less than 6 Hours Per Day (ICD-10-PCS; principal; 2018-05-02)
DX: E87.70 Fluid overload, unspecified (principal); N18.6 End stage renal disease; G93.40 Encephalopathy, unspecified; I13.2 Hypertensive heart and chronic kidney disease with heart failure and with stage 5 chronic kidney disease, or end stage renal disease; N25.81 Secondary hyperparathyroidism of renal origin; I69.354 Hemiplegia and hemiparesis following cerebral infarction affecting left non-dominant side; E87.5 Hyperkalemia; E87.8 Other disorders of electrolyte and fluid balance, not elsewhere classified; D69.6 Thrombocytopenia, unspecified; K70.30 Alcoholic cirrhosis of liver without ascites; M10.9 Gout, unspecified; I16.0 Hypertensive urgency; N28.9 Disorder of kidney and ureter, unspecified; E11.21 Type 2 diabetes mellitus with diabetic nephropathy; E11.22 Type 2 diabetes mellitus with diabetic chronic kidney disease; G40.909 Epilepsy, unspecified, not intractable, without status epilepticus; I25.10 Atherosclerotic heart disease of native coronary artery without angina pectoris; Z95.5 Presence of coronary angioplasty implant and graft; Z99.2 Dependence on renal dialysis; Z83.3 Family history of diabetes mellitus; Z82.49 Family history of ischemic heart disease and other diseases of the circulatory system; Z95.828 Presence of other vascular implants and grafts; Z79.82 Long term (current) use of aspirin; Z79.899 Other long term (current) drug therapy; Z79.84 Long term (current) use of oral hypoglycemic drugs
CPT/HCPCS: 36415; 70450; 76770; 80048; 82962; 85025; 85027; 94640; G0378; A9270-GY; J0610; J1815; J2405; J7030

== ENCOUNTER 2018-05-13 10:24 | Inpatient (IN) | payer MEDICARE ==
--- NOTE | 2018-05-13 11:16 | Emergency Department Report ---
ED General Adult HPI - General Chief complaint: Altered Mental Status Stated complaint: GENERAL SICKNESS Time Seen by Provider: 05/13/18 10:58 Source: patient, EMS (ems notes not available at time of chart dictation), RN notes reviewed, old records reviewed Mode of arrival: Stretcher Limitations: Altered Mental Status, Physical Limitation - History of Present Illness Initial comments: Nephrology: Dr. Glaser Past medical history: End-stage renal disease, on dialysis, Friday, Friday, Friday, hypertension, stroke, congestive heart failure, diabetes, seizure Heart disease, stents The patient is brought to the hospital by emergency medical services. The patient is confused, and the patient is a poor historian. The patient complains of inability to walk. He reports that he woke up feeling like this. The symptoms are currently constant. The patient is unable to describe exacerbating or relieving factors. On review of systems, he also describes chest pain. He cannot describe the nature of the chest pain. He cannot describe aggravation, qualitative, alleviating or aggravating factors. He is not sure if it radiates anywhere. He is also confused. He makes no complaint of headache, neck pain, abdominal pain. He indicates that he feels globally weak. No family or friends available at this time for collateral information. -: unknown Quality: other Consistency: other Improves with: other Worsens with: other Associated Symptoms: confusion, chest pain, weakness - Related Data Home Medications Medication Instructions Recorded Confirmed Last Taken Rosuvastatin Calcium [Crestor] 20 mg PO QHS 07/03/17 05/01/18 1 Day Ago ~03/10/18 Sevelamer Carbonate [Renvela] 2,400 mg PO TIDWM 07/03/17 05/01/18 1 Day Ago ~03/10/18 B Complex 11/Folic/C/Biot/Zinc 1 each PO DAILY 02/13/18 05/01/18 1 Day Ago [Dialyvite with Zinc Tablet] ~03/10/18 Ergocalciferol (Vitamin D2) 50,000 unit PO QWEEK 02/13/18 05/01/18 1 Day Ago [Drisdol] ~03/10/18 Omeprazole 20 mg PO QDAY 02/13/18 05/01/18 1 Day Ago ~03/10/18 Previous Rx's Medication Instructions Recorded Last Taken Type Aspirin [Aspirin BABY CHEW TAB] 81 mg PO QDAY #30 tab.chew 07/05/17 1 Day Ago Rx ~03/10/18 ISOSORBIDE MONOnitrate [Imdur ER] 30 mg PO DAILY #30 tablet 02/14/18 1 Day Ago Rx ~03/10/18 Metoprolol [Lopressor TAB] 12.5 mg PO BID #30 tablet 02/14/18 1 Day Ago Rx ~03/10/18 Gabapentin [Neurontin] 100 mg PO BID #60 capsule 05/03/18 Unknown Rx Verapamil [Calan] 80 mg PO Q8HR #90 tablet 05/03/18 Unknown Rx traMADol [Ultram] 50 mg PO Q6HR PRN #14 tablet 05/03/18 Unknown Rx Allergies Allergy/AdvReac Type Severity Reaction Status Date / Time No Known Allergies Allergy Verified 02/28/17 00:21 ED Review of Systems ROS: Stated complaint: GENERAL SICKNESS Other details as noted in HPI Comment: Unobtainable due to pts medical conditions Constitutional: malaise Cardiovascular: chest pain Neurological: weakness, confusion, other (patient complains of inability to walk) ED Past Medical Hx - Past Medical History Hx Hypertension: Yes Hx CVA: Yes (x2) Hx Heart Attack/AMI: No Hx Congestive Heart Failure: Yes Hx Diabetes: Yes Hx Deep Vein Thrombosis: No Hx Liver Disease: No Hx Renal Disease: Yes (end-stage renal disease) Hx Arthritis: No Hx Seizures: Yes Hx Asthma: No Hx COPD: No Additional medical history: Cardiac Stents, dialysis M-W-F - Surgical History Hx Coronary Stent: Yes Hx Pacemaker: No Hx Internal Defibrillator: No Additional Surgical History: Cardiac stents 3 months ago 08/22? av graft to left arm - Social History Smoking Status: Never Smoker Substance Use Type: None - Medications Home Medications: Home Medications Medication Instructions Recorded Confirmed Last Taken Type Rosuvastatin Calcium [Crestor] 20 mg PO QHS 07/03/17 05/01/18 1 Day Ago History ~03/10/18 Sevelamer Carbonate [Renvela] 2,400 mg PO TIDWM 07/03/17 05/01/18 1 Day Ago History ~03/10/18 Aspirin [Aspirin BABY CHEW TAB] 81 mg PO QDAY #30 tab.chew 07/05/17 05/01/18 1 Day Ago Rx ~03/10/18 B Complex 11/Folic/C/Biot/Zinc 1 each PO DAILY 02/13/18 05/01/18 1 Day Ago History [Dialyvite with Zinc Tablet] ~03/10/18 Ergocalciferol (Vitamin D2) 50,000 unit PO QWEEK 02/13/18 05/01/18 1 Day Ago History [Drisdol] ~03/10/18 Omeprazole 20 mg PO QDAY 02/13/18 05/01/18 1 Day Ago History ~03/10/18 ISOSORBIDE MONOnitrate [Imdur ER] 30 mg PO DAILY #30 tablet 02/14/18 05/01/18 1 Day Ago Rx ~03/10/18 Metoprolol [Lopressor TAB] 12.5 mg PO BID #30 tablet 02/14/18 05/01/18 1 Day Ago Rx ~03/10/18 Gabapentin [Neurontin] 100 mg PO BID #60 capsule 05/03/18 Unknown Rx Verapamil [Calan] 80 mg PO Q8HR #90 tablet 05/03/18 Unknown Rx traMADol [Ultram] 50 mg PO Q6HR PRN #14 tablet 05/03/18 Unknown Rx ED Physical Exam - General Limitations: Altered Mental Status, Physical Limitation General appearance: alert - Head Head exam: Present: atraumatic, normocephalic - Eye Eye exam: Present: normal appearance, EOMI, other (visual acuity intact to finger counting, color percent). Absent: nystagmus - ENT ENT exam: Present: normal exam, normal orophraynx, mucous membranes moist, normal external ear exam - Neck Neck exam: Present: normal inspection, full ROM, other (JVD noted bilaterally) - Respiratory Respiratory exam: Present: normal lung sounds bilaterally. Absent: respiratory distress - Cardiovascular Cardiovascular Exam: Present: regular rate, normal rhythm, normal heart sounds. Absent: bradycardia, tachycardia, irregular rhythm, systolic murmur, diastolic murmur, rubs, gallop - GI/Abdominal GI/Abdominal exam: Present: soft. Absent: distended, tenderness, guarding, rebound, rigid, pulsatile mass - Rectal Rectal exam: Present: deferred - Extremities Exam Extremities exam: Present: normal inspection (left upper extremity fistula, with no redness, pus or streaking), other (2+ pulses noted in the bilateral upper, lower extremities. Compartments soft. No long bony tenderness. The pelvis is stable.). Absent: full ROM (patient able to move 4 extremities, however, he is clumsy in his bilateral upper extremities, has tripped in his bilateral upper extremities, and is not able to lift either leg up against gravity.), pedal edema, joint swelling, calf tenderness - Back Exam Back exam: Present: normal inspection, full ROM. Absent: tenderness, CVA tenderness (R), paraspinal tenderness, vertebral tenderness - Neurological Exam Neurological exam: Present: altered (patient is alert to name, does not know the year, does not know the month, he knows that he is at a hospital.), motor sensory deficit (sensation intact to light touch in 4 extremities. Drift in the bilateral upper extremities. Moves the bilateral lower extremities laterally, but is not able to lift against gravity.). Absent: normal gait (H and is not able to walk.) - Psychiatric Psychiatric exam: Present: anxious - Skin Skin exam: Present: warm, dry, intact, normal color. Absent: rash ED Course Vital Signs 05/13/18 05/13/18 05/13/18 10:36 10:46 11:00 Pulse Rate 60 58 L Respiratory 14 22 Rate Blood Pressure 130/89 Blood Pressure [Left] O2 Sat by Pulse 85 93 91 Oximetry 05/13/18 05/13/18 05/13/18 11:07 11:16 11:32 Pulse Rate 61 61 65 Respiratory 16 11 L 12 Rate Blood Pressure 130/89 130/89 Blood Pressure 130/89 [Left] O2 Sat by Pulse 97 93 97 Oximetry 05/13/18 05/13/18 05/13/18 11:46 12:06 12:16 Pulse Rate 64 63 64 Respiratory 12 8 L 9 L Rate Blood Pressure 134/87 130/89 130/89 Blood Pressure [Left] O2 Sat by Pulse 96 94 97 Oximetry 05/13/18 05/13/18 12:30 12:32 Pulse Rate 63 Respiratory 8 L 19 Rate Blood Pressure 130/89 Blood Pressure [Left] O2 Sat by Pulse 95 98 Oximetry - Reevaluation(s) Reevaluation #1: 05/13/18 11:38 Differential diagnosis, including but not limited to: Stroke, subacute stroke, uremia, pneumonia, urinary tract infection, debility, acute coronary syndrome, aortic disease Assessment and plan: 63-year-old gentleman with a primary complaint of waking up and being unable to walk. He endorses secondary complaint of chest pain. The patient is not a TPA candidate given that his last known well time is not known, and that he experienced wakeup symptoms. Initial NIH score is 10. I suspect a more global component, perhaps either ur emic encephalopathy, infectious etiology, electrolyte etiology. Noncontrast CT scan of the brain is obtained. Interpretation is pending. Cold stroke called overhead. Currently, the CT angiogram is down, and not working, but I am told by staff members and technologists that the CT scan will be up and running quite shortly. The patient is currently being interviewed by stroke neurology. Reevaluation #2: 05/13/18 11:41 I think aortic disease is unlikely as the patient has equal pulses in the upper, lower extremities, and is not especially hypertensive. However, once we get an angiogram, the proximal aorta will be visualized, and we should be able to exclude a proximal dissection extending into the carotid/intracranial circulation. 05/13/18 12:05 05/13/18 12:12 Reevaluation #3: 05/13/18 12:01 Patient is found to be hyperkalemic. Hyperkalemia cocktail ordered. Nephrology paged second time. Reevaluation #4: 05/13/18 12:22 Discussed with nephrology, Dr. Glaser, who will arrange for dialysis. Patient found to have elevated blood urea nitrogen, suspicious for uremic encephalopathy. I highly doubt acute aortic disease, however, as per neurology's recommendations, we will obtain angiogram of the chest, abdomen, pelvis. I have also discussed this with our neurologist on-call, Dr. Steve, who will coordinate with our CT scan technologists to arrange for additional angiogram. Reevaluation #5: 05/13/18 13:32 CTA of the neck is negative. CTA of the head interpretation is pending. Chest, abdomen, pelvis performance and interpretation pending. Dr. Burt has accepted the patient to the medical service. - Consultations Consultation #1: 05/13/18 11:42 Discussed with stroke neurology, Dr. Yuan Childress, who agrees that patient is not a TPA candidate. He is agreeable to acquisition of emergent angiogram to exclude large vessel occlusion, proximal aortic disease. Consultation #2: 05/13/18 14:15 ct angio chest abd pelvis negative Dr Burt updated - EJ/Peripheral Line Neck L Time Out Performed: Yes Indications: nurses unable to establis Skin Cleansed in Sterile Fashion: Yes Size: 18 Dressing Placed: Tegaderm Patient Tolerated Procedure: well ED Medical Decision Making - Lab Data Result diagrams: 05/13/18 11:23 05/13/18 11:23 Vital Signs 05/13/18 11:07 Pulse Rate 61 Respiratory 16 Rate Blood Pressure 130/89 [Left] O2 Sat by Pulse 97 Oximetry Lab Results 05/13/18 05/13/18 05/13/18 Range/Units 10:46 11:21 11:23 WBC 6.6 (4.5-11.0) K/mm3 RBC 3.28 L (3.65-5.03) M/mm3 Hgb 10.9 L (11.8-15.2) gm/dl Hct 32.6 L (35.5-45.6) % MCV 99 H (84-94) fl MCH 33 H (28-32) pg MCHC 33 (32-34) % RDW 15.6 H (13.2-15.2) % Plt Count 201 (140-440) K/mm3 Lymph % (Auto) 16.7 (13.4-35.0) % [place] % (Auto) 9.3 H (0.0-7.3) % Eos % (Auto) 5.0 H (0.0-4.3) % Baso % (Auto) 1.3 (0.0-1.8) % Lymph # 1.1 L (1.2-5.4) K/mm3 [place] # 0.6 (0.0-0.8) K/mm3 Eos # 0.3 (0.0-0.4) K/mm3 Baso # 0.1 (0.0-0.1) K/mm3 Seg Neutrophils % 67.7 (40.0-70.0) % Seg Neutrophils # 4.5 (1.8-7.7) K/mm3 PT (12.2-14.9) Sec. INR (0.87-1.13) APTT (24.2-36.6) Sec. Thrombin Time (15.1-19.6) Sec. POC Glucose 82 86 (70-105) 05/13/18 Range/Units 11:23 WBC (4.5-11.0) K/mm3 RBC (3.65-5.03) M/mm3 Hgb (11.8-15.2) gm/dl Hct (35.5-45.6) % MCV (84-94) fl MCH (28-32) pg MCHC (32-34) % RDW (13.2-15.2) % Plt Count (140-440) K/mm3 Lymph % (Auto) (13.4-35.0) % [place] % (Auto) (0.0-7.3) % Eos % (Auto) (0.0-4.3) % Baso % (Auto) (0.0-1.8) % Lymph # (1.2-5.4) K/mm3 [place] # (0.0-0.8) K/mm3 Eos # (0.0-0.4) K/mm3 Baso # (0.0-0.1) K/mm3 Seg Neutrophils % (40.0-70.0) % Seg Neutrophils # (1.8-7.7) K/mm3 PT 13.4 (12.2-14.9) Sec. INR 0.96 (0.87-1.13) APTT 30.3 (24.2-36.6) Sec. Thrombin Time 17.8 (15.1-19.6) Sec. POC Glucose (70-105) - EKG Data -: EKG Interpreted by Ga EKG shows normal: sinus rhythm Rate: normal - EKG Data When compared to previous EKG there are: no significant change 05/13/18 11:43 The cardiac rhythm, 59 bpm, normal axis, normal intervals, atrial enlargement, poor progression, abnormal EKG, consistent with ST elevation myocardial infarction, unchanged from prior EKG from 03/11/2018. - Radiology Data Radiology results: pending, report reviewed, image reviewed Discussed CT angiogram of the brain with radiology, Dr. Steve, he states it is negative, and he will place a reading, addendum. Critical Care Time: Yes Critical care time in (mins) excluding proc time.: 60 Critical care attestation.: If time is entered above; I have spent that time in minutes in the direct care of this critically ill patient, excluding procedure time. ED Disposition Clinical Impression: ESRD (end stage renal disease), Uremic encephalopathy, Gait abnormality, Uremia Chest pain Qualifiers: Ischemic chest pain type: unstable angina pectoris Disposition: OP ADMIT IP TO THIS HOSP Is pt being admited?: Yes Condition: Fair Instructions: Chest Pain (ED) Referrals: RENA LOMBARDI MD [Primary Care Provider] - 3-5 Days - Assessment Assessment Interval: Baseline - Level of Consciousness 1a. Level of Consciousness: alert/keenly responsive - LOC Questions 1b. LOC Questions: answers 1 question correctly - LOC Command 1c. LOC Commands: performs tasks correctly - Best Gaze 2. Best Gaze: normal - Visual 3. Visual: no visual loss - Facial Palsy 4. Facial Palsy: normal symmetrical movement - Motor Arm 5a. Motor Arm Left: drift 5b. Motor Arm Right: drift - Motor Leg 6a. Motor Leg Left: some gravity effort 6b. Motor Leg Right: some gravity effort - Limb Ataxia 7. Limb Ataxia: present 2 limbs - Sensory 8. Sensory: normal - Best Language 9. Best Language: no aphasia - Dysarthria 10. Dysarthria: normal - Extinction and Inattention 11. Extinction/Inattention: visual/tactile inattention - Scoring Total Score: 10 Stroke Severity: Moderate Stroke
[2018-05-13 11:27] LABS: Basophils # (Auto) 0.1 K/mm3 (0.0-0.1); Basophils % (Auto) 1.3 % (0.0-1.8); Eosinophils # (Auto) 0.3 K/mm3 (0.0-0.4); Hematocrit 32.6 % (35.5-45.6); Hemoglobin 10.9 gm/dl (11.8-15.2); Lymphocytes # (Auto) 1.1 K/mm3 (1.2-5.4); Lymphocytes % (Auto) 16.7 % (13.4-35.0); Mean Corpuscular HGB Conc 33 % (32-34); Mean Corpuscular Volume 99 fl (84-94); Monocytes # (Auto) 0.6 K/mm3 (0.0-0.8); Monocytes % (Auto) 9.3 % (0.0-7.3); Platelet Count 201 K/mm3 (140-440); Red Blood Count 3.28 M/mm3 (3.65-5.03); Red Cell Distribution Width 15.6 % (13.2-15.2)
[2018-05-13 11:39] LABS: INR 0.96 (0.87-1.13)
[2018-05-13 11:40] LABS: Partial Thromboplastin Time 30.3 Sec. (24.2-36.6); Thrombin Time 17.8 Sec. (15.1-19.6)
--- NOTE | 2018-05-13 11:48 | Consultation ---
History of Present Illness History of present illness: [facility] Impression: Patient presenting with CP and inability to walk/move legs. Has bilateral lower extremity > upper extremity weakness. No focal/lateralizing deficits to suggest a stroke. Would rule out central process with MRI brain, C-spine and L-spine. Rule out aortic dissection given chest pain with CTA. Not a tpa candidate due to: out of window Not an ADRIANO candidate due to: presentation not suggestive of LVO Differential Diagnosis: 1. Cardioembolic stroke 2. Small vessel disease/lacune 3. Thromboembolic, hyeoea-ba-cvzisu mechanism 4. Hypercoagulable state-related infarct 5. Transient ischemic attack 6. Thrombotic mechanism, large artery disease Comments: Door time: 1024 [facility] contacted: [phone] [facility] at bedside: 1121 NIHSS assessment time: 1130 (pt in CT on log in) Recommendations: MRI brain wo MRI C-spine wo MRI L-spine wo CTA chest/abd/pelvis to rule out aortic dissection inpatient neurology consultation Inpatient stroke evaluation as per Neurology/ Internal Medicine Discussed with ED MD CC: stroke alert History of Present Illness Patient is a63 year old man with a history of ESRD, alcoholic cirrhosis, HTN, DM, prior stroke with residual LLE weakness/gait disturbance who presented with CP and inability to walk. Last known well 2300 last night prior to bed. Woke a t 0800 this AM with CP and couldn't walk or move both legs. Denies any focal/lateralizing deficits. Diagnostic: CT head wo - nothing acute Exam: NIHSS score: 10 Drift in BUEs Poor effort/no antigrav in BLEs Disoriented to month Speech mildly slurred Medical Decision Making: - Extensive number of diagnosis or management options are considered above. - Extensive amount of complex data reviewed. - High risk of complication and/or morbidity or mortality are associated with differential diagnostic considerations above. - There may be Uncertain outcome and increased probability of prolonged functional impairment or high probability of severe prolonged functional impairment associated with some of these differential diagnosis. Medical Data Reviewed: 1.Data reviewed include clinical labs, radiology, Medical Tests; 2.Tests results discussed w/performing or interpreting physician; 3.Obtaining/reviewing old medical records; 4.Obtaining case history from another source; 5.Independent review of image, tracing or specimen. Patient was informed the Neurology Consult would happen via telehealth (remote video) and consented to receiving care in this manner. Medications and Allergies Allergies Allergy/AdvReac Type Severity Reaction Status Date / Time No Known Allergies Allergy Verified 02/28/17 00:21 Home Medications Medication Instructions Recorded Confirmed Last Taken Type Rosuvastatin Calcium [Crestor] 20 mg PO QHS 07/03/17 05/01/18 1 Day Ago History ~03/10/18 Sevelamer Carbonate [Renvela] 2,400 mg PO TIDWM 07/03/17 05/01/18 1 Day Ago History ~03/10/18 Aspirin [Aspirin BABY CHEW TAB] 81 mg PO QDAY #30 tab.chew 07/05/17 05/01/18 1 Day Ago Rx ~03/10/18 B Complex 11/Folic/C/Biot/Zinc 1 each PO DAILY 02/13/18 05/01/18 1 Day Ago History [Dialyvite with Zinc Tablet] ~03/10/18 Ergocalciferol (Vitamin D2) 50,000 unit PO QWEEK 02/13/18 05/01/18 1 Day Ago History [Drisdol] ~03/10/18 Omeprazole 20 mg PO QDAY 02/13/18 05/01/18 1 Day Ago History ~03/10/18 ISOSORBIDE MONOnitrate [Imdur ER] 30 mg PO DAILY #30 tablet 02/14/18 05/01/18 1 Day Ago Rx ~03/10/18 Metoprolol [Lopressor TAB] 12.5 mg PO BID #30 tablet 02/14/18 05/01/18 1 Day Ago Rx ~03/10/18 Gabapentin [Neurontin] 100 mg PO BID #60 capsule 05/03/18 Unknown Rx Verapamil [Calan] 80 mg PO Q8HR #90 tablet 05/03/18 Unknown Rx traMADol [Ultram] 50 mg PO Q6HR PRN #14 tablet 05/03/18 Unknown Rx Physical Examination - Vital Signs Vital Signs: Vital Signs Pulse Resp BP Pulse Ox 61 16 130/89 97 05/13/18 11:07 05/13/18 11:07 05/13/18 11:07 05/13/18 11:07 - Level of Consciousness 1a. Level of Consciousness: alert/keenly responsive - LOC Questions 1b. LOC Questions: answers 1 question correctly - LOC Command 1c. LOC Commands: performs tasks correctly - Best Gaze 2. Best Gaze: normal - Visual 3. Visual: no visual loss - Facial Palsy 4. Facial Palsy: normal symmetrical movement - Motor Arm 5a. Motor Arm Left: drift 5b. Motor Arm Right: drift - Motor Leg 6a. Motor Leg Left: no gravity effort 6b. Motor Leg Right: no gravity effort - Limb Ataxia 7. Limb Ataxia: absent - Sensory 8. Sensory: normal - Best Language 9. Best Language: no aphasia - Dysarthria 10. Dysarthria: mild/moderate dysarthria - Extinction and Inattention 11. Extinction/Inattention: no abnormality - Scoring Total Score: 10 Stroke Severity: Moderate Stroke Results - Laboratory Findings CBC and BMP: 05/13/18 11:23 Abnormal Lab Findings: Abnormal Labs 05/13/18 11:23 RBC 3.28 L Hgb 10.9 L Hct 32.6 L MCV 99 H MCH 33 H RDW 15.6 H [place] % (Auto) 9.3 H Eos % (Auto) 5.0 H Lymph # 1.1 L
[2018-05-13 11:51] LABS: Creatine Kinase MB 2.9 ng/mL (0.0-4.0)
[2018-05-13 11:52] LABS: Albumin 3.8 g/dL (3.9-5); Calcium 9.7 mg/dL (8.4-10.2)
[2018-05-13] MEDS ORDERED: D50W (25GM) Syringe IV ONE ×2 (11:55→15:21)
[2018-05-13] MEDS ORDERED: CALCIUM GLUCONATE 1,000 MG in NACL 0.9% 100 ML IV ONE (11:55)
[2018-05-13] MEDS ORDERED: PROVENTIL IH ONE (11:55)
[2018-05-13] MEDS ORDERED: KIONEX PO ONE (11:55)
[2018-05-13] MEDS ORDERED: HumuLIN R IV ONE (11:55)
--- NOTE | 2018-05-13 12:11 | Cat Scan Report ---
PROCEDURE: CT HEAD/BRAIN WO CON TECHNIQUE: A noncontrast CT of the head was performed. HISTORY: Stroke symptoms COMPARISON: 02/13/2018 FINDINGS: There are multiple old small lacunar infarcts in the basal ganglia and right thalamus. There is unchanged moderate cerebral atrophy. There is no acute intracranial hemorrhage. There is no brain edema, mass effect or midline shift. Ventricular size is appropriate for brain volume. There is no abnormal extra-axial fluid collections. There is no skull fracture seen. There are retention cysts in the maxillary sinuses. IMPRESSION: There is no acute intracranial abnormality seen. This document is electronically signed by Jody Mccartney MD., May 13 2018 12:09:53 PM ET
[2018-05-13] MEDS ORDERED: NACL 0.9% 100 ML IV PRN (12:24)
[2018-05-13 12:32] LABS: Chol/HDL Ratio 1.91 %
--- NOTE | 2018-05-13 12:34 | Cat Scan Report ---
CTA neck: History: Stroke symptoms. Findings: The origin and course of the right and left common carotid and the vertebral artery appears normal. Normal origin and course of right and left subclavian. Normal origin and course off vertebral arteries bilaterally. Bilaterally the internal carotid arteries appears unremarkable. There is calcification noted at the bulb however no significant stenosis. Impression: No evidence of significant plaque formation or stenosis.
--- NOTE | 2018-05-13 12:38 | XRay Report ---
AP CHEST : 05/13/18 10:24:00 CLINICAL: Chest pain. COMPARISON:03/11/18 FINDINGS: Interval development of confluent right upper lobe airspace disease and possible airspace disease in the right lung base as well.The left lung is clear. The heart is normal size. Large central pulmonary vessels. The bones and soft tissues are unremarkable.No tubes or lines. IMPRESSION: Suspect right upper lobe and possible right basal pneumonia.
[2018-05-13] MEDS ORDERED: LEVAQUIN 500MG/100ML 500 MG/100 ML BAG IV ONE (13:04)
--- NOTE | 2018-05-13 14:06 | History and Physical Report ---
History of Present Illness Chief complaint: weak and confused History of present illness: 63 YO Male with HTN, CVA, CHF, DM, ESRD on HD (M,W,F), Seizure Disorder not currently taking AED, CAD S/P Stent Placement presents to ED for evaluation. Pt is confused and unable to provide detailed history. Pt history taken from ED Staff. As per staff, the patient experienced confusion, and inability to ambulate upon waking from sleep this morning. EMS notified, and upon arrival the patient was found to be in distress. Pt transported to [facility]. Pt seen and evaluated in ED and found to have symptoms consistent with CVA. Teleneurology consulted. Pt also found to have Encephalopathy, ESRD. PT admitted to Medical Floor. Nephrology team consulted in ED. Pt previous admission on 05/01/18 for ESRD and fluid Overload reviewed. Pt admitted to telemetry, and initiated on CVA protocol. All listed medication reconciled at time of admission. No further history obtainable. Nephrology: Dr. Glaser Medications and Allergies Allergies Allergy/AdvReac Type Severity Reaction Status Date / Time No Known Allergies Allergy Verified 02/28/17 00:21 Home Medications Medication Instructions Recorded Confirmed Last Taken Type Rosuvastatin Calcium [Crestor] 20 mg PO QHS 07/03/17 05/13/18 1 Day Ago History ~03/10/18 Sevelamer Carbonate [Renvela] 2,400 mg PO TIDWM 07/03/17 05/13/18 1 Day Ago History ~03/10/18 Aspirin [Aspirin BABY CHEW TAB] 81 mg PO QDAY #30 tab.chew 07/05/17 05/13/18 1 Day Ago Rx ~03/10/18 B Complex 11/Folic/C/Biot/Zinc 1 each PO DAILY 02/13/18 05/13/18 1 Day Ago History [Dialyvite with Zinc Tablet] ~03/10/18 Ergocalciferol (Vitamin D2) 50,000 unit PO QWEEK 02/13/18 05/13/18 1 Day Ago History [Drisdol] ~03/10/18 Omeprazole 20 mg PO QDAY 02/13/18 05/13/18 1 Day Ago History ~03/10/18 ISOSORBIDE MONOnitrate [Imdur ER] 30 mg PO DAILY #30 tablet 02/14/18 05/13/18 1 Day Ago Rx ~03/10/18 Metoprolol [Lopressor TAB] 12.5 mg PO BID #30 tablet 02/14/18 05/13/18 1 Day Ago Rx ~03/10/18 Gabapentin [Neurontin] 100 mg PO BID #60 capsule 05/03/18 05/13/18 Unknown Rx Verapamil [Calan] 80 mg PO Q8HR #90 tablet 05/03/18 05/13/18 Unknown Rx Active Meds: Active Medications Sodium Chloride (Nacl 0.9%) 100 mls @ 999 mls/hr IV JEANINE PRN PRN Reason: Hypotension Review of Systems ROS unobtainable: due to mental status Exam - Constitutional Vitals: Temp Pulse Resp BP Pulse Ox 63 19 130/89 98 05/13/18 12:30 05/13/18 12:32 05/13/18 12:30 05/13/18 12:32 General appearance: Present: mild distress - EENT Eyes: Present: PERRL, miosis ENT: hearing intact, clear oral mucosa - Neck Neck: Present: supple, normal ROM - Respiratory Respiratory effort: normal Respiratory: bilateral: CTA - Cardiovascular Heart Sounds: Present: S1 & S2. Absent: rub, click - Extremities Extremities: pulses symmetrical Extremity abnormal: edema Peripheral Pulses: within normal limits - Abdominal General gastrointestinal: Present: soft, non-tender, non-distended, normal bowel sounds Male genitourinary: Present: normal - Integumentary Integumentary: Present: clear, warm, dry - Musculoskeletal Musculoskeletal: generalized weakness - Psychiatric Psychiatric: no appropriate mood/affect, no intact judgment & insight, no memory intact - Neurologic Neurologic: CNII-XII intact, no focal deficits, moves all extremities, no gait normal Results - Labs CBC & Chem 7: 05/13/18 11:23 05/13/18 11:23 Labs: Abnormal lab results 05/13/18 05/13/18 05/13/18 Range/Units 11:23 11:23 11:23 RBC 3.28 L (3.65-5.03) M/mm3 Hgb 10.9 L (11.8-15.2) gm/dl Hct 32.6 L (35.5-45.6) % MCV 99 H (84-94) fl MCH 33 H (28-32) pg RDW 15.6 H (13.2-15.2) % [place] % (Auto) 9.3 H (0.0-7.3) % Eos % (Auto) 5.0 H (0.0-4.3) % Lymph # 1.1 L (1.2-5.4) K/mm3 Sodium 135 L (137-145) mmol/L Potassium 7.4 H* (3.6-5.0) mmol/L Chloride 94.1 L (98-107) mmol/L BUN 121 H (9-20) mg/dL Creatinine 14.1 H (0.8-1.5) mg/dL Troponin T 0.042 H (0.00-0.029) ng/mL Albumin 3.8 L (3.9-5) g/dL HDL Cholesterol 68 H (40-59) mg/dL Salicylates < 0.3 L (2.8-20.0) mg/dL Acetaminophen (10.0-30.0) ug/mL 05/13/18 Range/Units 11:23 RBC (3.65-5.03) M/mm3 Hgb (11.8-15.2) gm/dl Hct (35.5-45.6) % MCV (84-94) fl MCH (28-32) pg RDW (13.2-15.2) % [place] % (Auto) (0.0-7.3) % Eos % (Auto) (0.0-4.3) % Lymph # (1.2-5.4) K/mm3 Sodium (137-145) mmol/L Potassium (3.6-5.0) mmol/L Chloride (98-107) mmol/L BUN (9-20) mg/dL Creatinine (0.8-1.5) mg/dL Troponin T (0.00-0.029) ng/mL Albumin (3.9-5) g/dL HDL Cholesterol (40-59) mg/dL Salicylates (2.8-20.0) mg/dL Acetaminophen < 5.0 L (10.0-30.0) ug/mL Assessment and Plan - Patient Problems (1) CVA (cerebral vascular accident) Current Visit: Yes Status: Acute Qualifiers: Laterality of affected vessel: unspecified Plan to address problem: CVA Protocol: CT head, MRI Brain, MRA Brain, Neuro checks, PT/OT/Speech Therapy, Antiplatelet therapy, Teleneurology consulted, PT deemed not a candidate for TPA, Lipid panel, statin therapy, neuro checks (2) ESRD (end stage renal disease) Current Visit: Yes Status: Chronic Plan to address problem: Nephrology consulted in ED, dialysis as per renal team, bmp, strict I/o, monitor uop q shift, daily weight (3) CHF (congestive heart failure) Current Visit: No Status: Chronic Qualifiers: Qualified Code(s): I50.42 - Chronic combined systolic (congestive) and diastolic (congestive) heart failure Plan to address problem: BNP, chest x ray, diuresis, urgent dialysis, monitor uop q shift, monitor fluid balance, afterload reduction, supplemental oxygen, pulse oximetry, (4) Hypertension Current Visit: No Status: Chronic Qualifiers: Hypertension type: essential hypertension Qualified Code(s): I10 - Essential (primary) hypertension Plan to address problem: Monitor bp q shift, continue medical management. (5) Hyperkalemia Current Visit: Yes Status: Acute Plan to address problem: Calcium gluconate, kayexelate, urgent dialysis. (6) DVT prophylaxis Current Visit: No Status: Acute Plan to address problem: SCD to BLE while in bed, Prophylactic Heparin dosing
--- NOTE | 2018-05-13 14:07 | Cat Scan Report ---
CTA abdomen and pelvis: History: Dissection protocol. Findings: The lower thoracic and abdominal aorta reveals mild atherosclerotic changes without evidence of dissection. The origin of the superior mesenteric artery, the celiac artery and inferior mesenteric artery appears normal. Origin of the renal vessels appears unremarkable with mild atherosclerotic changes. The iliac vessels appears unremarkable. There is 3.2 cm cyst right kidney with perirenal stranding. Thick wall urinary bladder. Bladder diverticuli bilaterally. Large right inguinal scrotal hernia. Stool throughout colon. No bowel distention. Impression: No evidence of lower thoracic, abdomen and iliac arteries dissection. Additional findings as detailed above.
[2018-05-13] MEDS ORDERED: MILK OF MAGNESIA PO PRN (14:08)
[2018-05-13] MEDS ORDERED: ZOFRAN IV PRN (14:08)
[2018-05-13] MEDS ORDERED: TYLENOL PO PRN (14:08)
[2018-05-13] MEDS ORDERED: PHENERGAN PR PRN (14:08)
[2018-05-13] MEDS ORDERED: DULCOLAX PR PRN (14:08)
[2018-05-13] MEDS ORDERED: SODIUM CHLORIDE FLUSH SYRINGE 10 ML IV PRN (14:08)
[2018-05-13] MEDS ORDERED: REGLAN PO PRN (14:08)
--- NOTE | 2018-05-13 14:13 | Cat Scan Report ---
CTA chest: History: Dissection protocol. Findings: No evidence of aortic aneurysm or aortic dissection. The ascending and descending thoracic aorta there is mild atherosclerotic changes. Bibasilar atelectasis and scarring. No acute lung changes. No pleural or pericardial effusion. Impression: No evidence of thoracic aortic dissection or aneurysm.
[2018-05-13] MEDS ORDERED: BABY ASPIRIN PO ONE (14:15)
[2018-05-13] MEDS: HEPARIN SUB-Q SCH (22:04)
[2018-05-14 02:52] LABS: Amorphous Crystals,Urine Few; Bilirubin,Urine NEG (Negative); Blood,Urine NEG (Negative); Color,Urine Yellow (Yellow); RBC,Urine < 1.0 /HPF (0.0-6.0); Urobilinogen,Urine < 2.0 mg/dL (<2.0)
[2018-05-14] MEDS: NORCO 5/325 PO PRN ×2 (03:23→09:08)
[2018-05-14] MEDS: APRESOLINE IV PRN ×2 (04:49→13:47)
[2018-05-14] MEDS ORDERED: ULTRAM PO PRN (06:36)
[2018-05-14] MEDS ORDERED: REGLAN PO PRN (06:48)
[2018-05-14] MEDS ORDERED: NON-FORMULARY (Hydroxyzine Hcl [Hydroxyzine] 50 MG) PO SCH (08:00)
[2018-05-14] MEDS: ASPIRIN PO SCH (09:07)
[2018-05-14] MEDS: Renal Caps PO SCH (09:07)
[2018-05-14] MEDS: RENVELA PO SCH ×3 (09:07→17:14)
[2018-05-14] MEDS: PROTONIX PO SCH (09:08)
[2018-05-14] MEDS: ATARAX PO SCH ×3 (09:09→20:29)
[2018-05-14] MEDS: HEPARIN SUB-Q SCH ×2 (09:09→22:38)
[2018-05-14] MEDS ORDERED: NON-FORMULARY (B Complex 11/Folic/C/Biot/Zinc [Dialyvite With Zinc Tablet] 1 EACH) PO SCH (10:00)
[2018-05-14] MEDS ORDERED: NON-FORMULARY (Omeprazole [Omeprazole] 20 MG) PO SCH (10:00)
[2018-05-14] MEDS ORDERED: NEURONTIN PO SCH (10:00)
--- NOTE | 2018-05-14 10:20 | Consultation ---
History of Present Illness - Reason for Consult Consult date: 05/14/18 - History of Present Illness 63-year-old -[place] male with a past medical history significant for end-stage renal disease who is well-known to our outpatient dialysis unit presents to the emergency department secondary to worsening confusion, lethargy, weakness in the setting of a missed dialysis session on Friday. Labs were significant for hyperkalemia and nephrology was consulted for urgent hemodialysis. He received his hemodialysis session yesterday and tolerated well. His overall mental status has improved back to baseline. He underwent further imaging secondary to his altered mental status which included a CT of the head as well as a CT of the head and neck. All these findings were essentially negative without any acute abnormalities noted. Chest x-ray also noted with questionable pneumonia but no significant fluid overload. He typically dialyzes on a Friday schedule and he dialyzes at our [facility] unit. Past History Past Medical History: diabetes, dialysis, ESRD, hypertension, hyperlipidemia, liver disease, seizures Past Surgical History: Other (left upper extremity AV fistula placement) Family history: diabetes, hypertension Medications and Allergies Allergies Allergy/AdvReac Type Severity Reaction Status Date / Time No Known Allergies Allergy Verified 02/28/17 00:21 Home Medications Medication Instructions Recorded Confirmed Last Taken Type Rosuvastatin Calcium [Crestor] 20 mg PO QHS 07/03/17 05/13/18 1 Day Ago History ~03/10/18 Sevelamer Carbonate [Renvela] 2,400 mg PO TIDWM 07/03/17 05/13/18 1 Day Ago History ~03/10/18 Aspirin [Aspirin BABY CHEW TAB] 81 mg PO QDAY #30 tab.chew 07/05/17 05/13/18 1 Day Ago Rx ~03/10/18 B Complex 11/Folic/C/Biot/Zinc 1 each PO DAILY 02/13/18 05/13/18 1 Day Ago History [Dialyvite with Zinc Tablet] ~03/10/18 Ergocalciferol (Vitamin D2) 50,000 unit PO QWEEK 02/13/18 05/13/18 1 Day Ago History [Drisdol] ~03/10/18 Omeprazole 20 mg PO QDAY 02/13/18 05/13/18 1 Day Ago History ~03/10/18 ISOSORBIDE MONOnitrate [Imdur ER] 30 mg PO DAILY #30 tablet 02/14/18 05/13/18 1 Day Ago Rx ~03/10/18 Metoprolol [Lopressor TAB] 12.5 mg PO BID #30 tablet 02/14/18 05/13/18 1 Day Ago Rx ~03/10/18 Gabapentin [Neurontin] 100 mg PO BID #60 capsule 05/03/18 05/13/18 Unknown Rx Verapamil [Calan] 80 mg PO Q8HR #90 tablet 05/03/18 05/13/18 Unknown Rx Hydroxyzine HCl [hydrOXYzine] 50 mg PO TID 05/14/18 05/14/18 Unknown History traMADol [Ultram] 50 mg PO Q6HR PRN 05/14/18 05/14/18 Unknown History Active Meds: Active Medications Acetaminophen (Tylenol) 650 mg PO Q4H PRN PRN Reason: Pain, Mild (1-3) Acetaminophen/Hydrocodone Bitart ([place] 5/325) 1 each PO Q6H PRN PRN Reason: Pain, Moderate (4-6) Last Admin: 05/14/18 09:08 Dose: 1 each Documented by: Aspirin (Aspirin) 325 mg PO QDAY [facility] Last Admin: 05/14/18 09:07 Dose: 325 mg Documented by: Atorvastatin Calcium (Lipitor) 40 mg PO QHS [facility] Bisacodyl (Dulcolax) 10 mg SC QDAY PRN PRN Reason: Constipation Gabapentin (Neurontin) 100 mg PO BID [facility] Last Admin: 05/14/18 09:07 Dose: 100 mg Documented by: Heparin Sodium (Porcine) (Heparin) 5,000 unit SUB-Q Q12HR [facility] Last Admin: 05/14/18 09:09 Dose: 5,000 unit Documented by: Hydralazine HCl (Apresoline) 10 mg IV Q6HR PRN PRN Reason: Hypertension Last Admin: 05/14/18 04:49 Dose: 10 mg Documented by: Hydroxyzine HCl (Atarax) 50 mg PO TID [facility] Last Admin: 05/14/18 09:09 Dose: 50 mg Documented by: Sodium Chloride (Nacl 0.9%) 100 mls @ 999 mls/hr IV JEANINE PRN PRN Reason: Hypotension Magnesium Hydroxide (Milk Of Magnesia) 30 ml PO Q4H PRN PRN Reason: Constipation Last Admin: 05/14/18 03:24 Dose: 30 ml Documented by: Metoclopramide HCl (Reglan) 2.5 mg PO Q6H PRN PRN Reason: Nausea And Vomiting Multivit/Ca Carb/B Cmplx/FA/Prenat (Renal Caps) 1 cap PO QDAY [facility] Last Admin: 05/14/18 09:07 Dose: 1 cap Documented by: Ondansetron HCl (Zofran) 4 mg IV Q8H PRN PRN Reason: Nausea And Vomiting Pantoprazole Sodium (Protonix) 20 mg PO QDAY [facility] Last Admin: 05/14/18 09:08 Dose: 20 mg Documented by: Pneumococcal Polyvalent Vaccine (Pneumovax 23) 0.5 ml IM .ONCE ONE Stop: 05/14/18 12:01 Promethazine HCl (Phenergan) 25 mg SC Q6H PRN PRN Reason: Nausea And Vomiting Sevelamer Carbonate (Renvela) 2,400 mg PO TIDWM [facility] Last Admin: 05/14/18 09:07 Dose: 2,400 mg Documented by: Sodium Chloride (Sodium Chloride Flush Syringe 10 Ml) 10 ml IV PRN PRN PRN Reason: LINE FLUSH Tramadol HCl (Ultram) 50 mg PO Q6HR PRN PRN Reason: Pain Verapamil HCl (Calan) 80 mg PO Q8HR [facility] Review of Systems All systems: negative Constitutional: fatigue, weakness Exam - Vital Signs Vital signs: Vital Signs Pulse Ox 85 05/13/18 10:36 - General Appearance General appearance: well-nourished, appears stated age EENT: ATNC, PERRL Neck: Present: neck supple, thyromegaly Respiratory: Clear to Ascultation, Normal Exam Heart: regular, S1S2 Gastrointestinal: Present: normal, normoactive bowel sounds Integumentary: no rash, warm and dry Neurologic: no focal deficit, alert and oriented x3 Musculoskeletal: Present: other (negative edema) Psychiatric: mood/affect appropriate, cooperative Results - Lab Results 05/13/18 11:23 05/13/18 11:23 Most recent lab results Calcium 9.7 mg/dL (8.4-10.2) 05/13/18 11:23 Assessment and Plan - Patient Problems (1) Hyperkalemia Current Visit: Yes Status: Acute Plan to address problem: Patient received dialysis yesterday on a 2K dialysate bath. Please ensure that he is on a low potassium diet. Next session of dialysis will be set up for tomorrow. (2) Uremic encephalopathy Current Visit: Yes Status: Acute Plan to address problem: Improved mental status after dialysis session yesterday. We'll continue to monitor. Counseled patient on importance of compliance with his regular hemodialysis sessions. (3) ESRD (end stage renal disease) Current Visit: Yes Status: Chronic Plan to address problem: Maintain patient on a Friday inpatient hemodialysis schedule. (4) Hypertensive chronic kidney disease with stage 5 chronic kidney disease or end stage renal disease Current Visit: No Status: Chronic Plan to address problem: Continue current regimen at this time. We'll continue to monitor. (5) Anemia in chronic kidney disease Current Visit: No Status: Acute Qualifiers: Chronic kidney disease stage: on chronic dialysis Qualified Code(s): N18.6 - End stage renal disease; D63.1 - Anemia in chronic kidney disease; Z99.2 - Dependence on renal dialysis Plan to address problem: We'll continue to monitor his H&H levels. Epogen with hemodialysis. (6) Type 2 diabetes mellitus with diabetic chronic kidney disease Current Visit: No Status: Chronic Qualifiers: Chronic kidney disease stage: on chronic dialysis Plan to address problem: Diabetes management per primary team. (7) Secondary hyperparathyroidism (of renal origin) Current Visit: No Status: Chronic Plan to address problem: Favor to continue patient on home phosphate binder regimen.
[2018-05-14] MEDS ORDERED: PNEUMOVAX 23 IM ONE (12:00)
[2018-05-14] MEDS ORDERED: AFLURIA QUAD 2018-2019 SYRINGE IM ONE (12:00)
--- NOTE | 2018-05-14 12:19 | Magnetic Resonance Report ---
MRI scan of brain: History: Stroke. Technique: Multiplanar multisequence images were obtained without contrast injection. Findings: No evidence of restricted diffusion. Ventricles are normal in size and midline in location. Small lacunar infarct White matter periventricular region bilaterally. Periventricular areas of hyperintensity on flair imaging without restricted diffusion. Chronic lacunar infarct right basal ganglia. No extra-axial fluid collection. Normal brainstem and cerebellum Fluid level in the right and left maxillary sinus. Impression: No evidence of acute ischemia or hemorrhage. Small vessel ischemic changes. Bilateral small chronic lacunar infarcts. Sinus disease.
--- NOTE | 2018-05-14 12:23 | Magnetic Resonance Report ---
MRA of the brain: History: Stroke. Findings: The vessels of [place] are widely patent. No evidence of stenosis, occlusion or dissection. No aneurysm. Dominant right vertebral artery. Normal basilar artery. Posterior communicating arteries not visualized. Impression: Essentially negative MRA study of brain.
[2018-05-14] MEDS: CALAN PO SCH ×2 (13:32→22:39)
--- NOTE | 2018-05-14 13:58 | Progress Note ---
Assessment and Plan Assessment and plan: CVA. MRI revealed no evidence of acute ischemia or hemorrhage. Small vessel ischemic changes. Bilateral small chronic lacunar infarcts. Neurology consultation pending. Metabolic encephalopathy. Patient with uremic encephalopathy. Mental status improved after hemodialysis yesterday. ESRD. Continue Friday inpatient hemodialysis schedule. Hyperkalemia. Patient received dialysis yesterday on a 2K dialysate bath. Please ensure that he is on a low potassium diet. Next session of dialysis will be set up for tomorrow. Anemia chronic disease. Monitor H&H and transfuse for hemoglobin less than 7. Accelerated hypertension. Resume antihypertensive medications. Diabetes mellitus type 2. Continue Accu-Cheks and sliding scale insulin. CAD. Patient with coronary artery disease status post multivessel PCI. MPI completed on 01/2018 revealed small mildly reversible inferior wall defect consistent with RCA ischemia. Cardiac catheterization completed on that admission revealed Patent Cx and RCA stents, non-obstructive LAD disease, normal LVEF History Interval history: No new issues overnight. Hospitalist Physical - Constitutional Vitals: Temp Pulse Resp BP Pulse Ox 97.8 F 78 19 177/117 98 05/14/18 09:03 05/14/18 13:47 05/14/18 10:00 05/14/18 13:47 05/14/18 10:00 General appearance: Present: no acute distress - EENT Eyes: Present: PERRL, EOM intact ENT: hearing intact, clear oral mucosa, dentition normal - Neck Neck: Present: supple, normal ROM - Respiratory Respiratory effort: normal Respiratory: bilateral: CTA - Cardiovascular Rhythm: regular Heart Sounds: Present: S1 & S2. Absent: gallop, rub - Extremities Extremities: no ischemia, No edema, Full ROM - Abdominal General gastrointestinal: soft, non-tender, non-distended, normal bowel sounds - Integumentary Integumentary: Present: clear, warm, dry - Neurologic Neurologic: CNII-XII intact, moves all extremities Results - Labs CBC & Chem 7: 05/13/18 11:23 05/13/18 11:23 Labs: Laboratory Last Values WBC 6.6 K/mm3 (4.5-11.0) 05/13/18 11:23 RBC 3.28 M/mm3 (3.65-5.03) L 05/13/18 11:23 Hgb 10.9 gm/dl (11.8-15.2) L 05/13/18 11:23 Hct 32.6 % (35.5-45.6) L 05/13/18 11:23 MCV 99 fl (84-94) H 05/13/18 11:23 MCH 33 pg (28-32) H 05/13/18 11:23 MCHC 33 % (32-34) 05/13/18 11:23 RDW 15.6 % (13.2-15.2) H 05/13/18 11:23 Plt Count 201 K/mm3 (140-440) 05/13/18 11:23 Lymph % (Auto) 16.7 % (13.4-35.0) 05/13/18 11:23 [place] % (Auto) 9.3 % (0.0-7.3) H 05/13/18 11:23 Eos % (Auto) 5.0 % (0.0-4.3) H 05/13/18 11:23 Baso % (Auto) 1.3 % (0.0-1.8) 05/13/18 11:23 Lymph # 1.1 K/mm3 (1.2-5.4) L 05/13/18 11:23 [place] # 0.6 K/mm3 (0.0-0.8) 05/13/18 11:23 Eos # 0.3 K/mm3 (0.0-0.4) 05/13/18 11:23 Baso # 0.1 K/mm3 (0.0-0.1) 05/13/18 11:23 Seg Neutrophils % 67.7 % (40.0-70.0) 05/13/18 11:23 Seg Neutrophils # 4.5 K/mm3 (1.8-7.7) 05/13/18 11:23 PT 13.4 Sec. (12.2-14.9) 05/13/18 11:23 INR 0.96 (0.87-1.13) 05/13/18 11:23 APTT 30.3 Sec. (24.2-36.6) 05/13/18 11:23 Thrombin Time 17.8 Sec. (15.1-19.6) 05/13/18 11:23 Sodium 135 mmol/L (137-145) L 05/13/18 11:23 Potassium 7.4 mmol/L (3.6-5.0) H* 05/13/18 11:23 Chloride 94.1 mmol/L (98-107) L 05/13/18 11:23 Carbon Dioxide 24 mmol/L (22-30) 05/13/18 11:23 Anion Gap 24 mmol/L 05/13/18 11:23 BUN 121 mg/dL (9-20) H 05/13/18 11:23 Creatinine 14.1 mg/dL (0.8-1.5) H 05/13/18 11:23 Estimated GFR 4 ml/min 05/13/18 11:23 BUN/Creatinine Ratio 9 % 05/13/18 11:23 Glucose 96 mg/dL (75-100) 05/13/18 11:23 POC Glucose 72 (70-105) 05/15/18 07:40 Lactic Acid 1.20 mmol/L (0.7-2.0) 05/13/18 13:08 Calcium 9.7 mg/dL (8.4-10.2) 05/13/18 11:23 Total Bilirubin 0.30 mg/dL (0.1-1.2) 05/13/18 11:23 AST 10 units/L (5-40) 05/13/18 11:23 ALT 8 units/L (7-56) 05/13/18 11:23 Alkaline Phosphatase 62 units/L (35-129) 05/13/18 11:23 Ammonia 45.0 umol/L (25-60) 05/13/18 11:47 Total Creatine Kinase 92 units/L (55-170) 05/13/18 11:23 CK-MB (CK-2) 2.9 ng/mL (0.0-4.0) 05/13/18 11:23 CK-MB (CK-2) Rel Index 3.1 (0-4) 05/13/18 11:23 Troponin T 0.042 ng/mL (0.00-0.029) H 05/13/18 11:23 NT-Pro-B Natriuret Pep 4257 pg/mL (0-900) H 05/13/18 13:08 Total Protein 7.0 g/dL (6.3-8.2) 05/13/18 11:23 Albumin 3.8 g/dL (3.9-5) L 05/13/18 11:23 Albumin/Globulin Ratio 1.2 % 05/13/18 11:23 Triglycerides 61 mg/dL (2-149) 05/13/18 11:23 Cholesterol 130 mg/dL (50-199) 05/13/18 11:23 LDL Cholesterol Direct 57 mg/dL (50-130) 05/13/18 11:23 HDL Cholesterol 68 mg/dL (40-59) H 05/13/18 11:23 Cholesterol/HDL Ratio 1.91 % 05/13/18 11:23 TSH 3.270 mlU/mL (0.270-4.200) 05/13/18 11:47 Urine Color Yellow (Yellow) 05/14/18 02:30 Urine Turbidity Clear (Clear) 05/14/18 02:30 Urine pH 8.0 (5.0-7.0) H 05/14/18 02:30 Ur Specific [place] 1.009 (1.003-1.030) 05/14/18 02:30 Urine Protein 100 mg/dl mg/dL (Negative) 05/14/18 02:30 Urine Glucose (UA) Neg mg/dL (Negative) 05/14/18 02:30 Urine Ketones Neg mg/dL (Negative) 05/14/18 02:30 Urine Blood Neg (Negative) 05/14/18 02:30 Urine Nitrite Neg (Negative) 05/14/18 02:30 Urine Bilirubin Neg (Negative) 05/14/18 02:30 Urine Urobilinogen < 2.0 mg/dL (<2.0) 05/14/18 02:30 Ur Leukocyte Esterase Neg (Negative) 05/14/18 02:30 Urine WBC (Auto) 1.0 /HPF (0.0-6.0) 05/14/18 02:30 Urine RBC (Auto) < 1.0 /HPF (0.0-6.0) 05/14/18 02:30 U Epithel Cells (Auto) < 1.0 /HPF (0-13.0) 05/14/18 02:30 Amorphous Crystals Few 05/14/18 02:30 Salicylates < 0.3 mg/dL (2.8-20.0) L 05/13/18 11:23 Acetaminophen < 5.0 ug/mL (10.0-30.0) L 05/13/18 11:23 Plasma/Serum Alcohol < 0.01 % (0-0.07) 05/13/18 11:23 Active Medications - Current Medications Current Medications: Generic Name Dose Route Start Last Admin Trade Name Freq PRN Reason Stop Dose Admin Acetaminophen 650 mg 05/13/18 14:08 Tylenol PO Q4H PRN Pain, Mild (1-3) Acetaminophen/Hydrocodone Bitart 1 each 05/14/18 03:16 05/14/18 09:08 [place] 5/325 PO 1 each Q6H PRN Administration Pain, Moderate (4-6) Aspirin 325 mg 05/14/18 10:00 05/14/18 09:07 Aspirin PO 325 mg QDAY GORDO Administration Atorvastatin Calcium 40 mg 05/14/18 22:00 Lipitor PO QHS GORDO Bisacodyl 10 mg 05/13/18 14:08 Dulcolax [place] QDAY PRN Constipation Gabapentin 100 mg 05/14/18 10:00 05/14/18 09:07 Neurontin PO 100 mg BID GORDO Administration Heparin Sodium (Porcine) 5,000 unit 05/13/18 22:00 05/14/18 09:09 Heparin SUB-Q 5,000 unit Q12HR GORDO Administration Hydralazine HCl 10 mg 05/14/18 04:36 05/14/18 13:47 Apresoline IV 10 mg Q6HR PRN Administration Hypertension Hydroxyzine HCl 50 mg 05/14/18 08:00 05/14/18 13:32 Atarax PO 50 mg TID GORDO Administration Sodium Chloride 100 mls @ 999 mls/hr 05/13/18 12:24 Nacl 0.9% IV JEANINE PRN Hypotension Magnesium Hydroxide 30 ml 05/13/18 14:08 05/14/18 03:24 Milk Of Magnesia PO 30 ml Q4H PRN Administration Constipation Metoclopramide HCl 2.5 mg 05/14/18 06:48 Reglan PO Q6H PRN Nausea And Vomiting Multivit/Ca Carb/B Cmplx/FA/Prenat 1 cap 05/14/18 10:00 05/14/18 09:07 Renal Caps PO 1 cap QDAY GORDO Administration Ondansetron HCl 4 mg 05/13/18 14:08 Zofran IV Q8H PRN Nausea And Vomiting Pantoprazole Sodium 20 mg 05/14/18 10:00 05/14/18 09:08 Protonix PO 20 mg QDAY GORDO Administration Promethazine HCl 25 mg 05/13/18 14:08 Phenergan [place] Q6H PRN Nausea And Vomiting Sevelamer Carbonate 2,400 mg 05/14/18 08:00 05/14/18 13:31 Renvela PO 2,400 mg TIDWM GORDO Administration Sodium Chloride 10 ml 05/13/18 14:08 Sodium Chloride Flush Syringe 10 Ml IV PRN PRN LINE FLUSH Tramadol HCl 50 mg 05/14/18 06:36 Ultram PO Q6HR PRN Pain Verapamil HCl 80 mg 05/14/18 14:00 05/14/18 13:32 Calan PO 80 mg Q8HR GORDO Administration
--- NOTE | 2018-05-14 14:43 | Vascular Lab Report ---
PROCEDURE: VL CAROTID DUPLEX RT TECHNIQUE: Duplex Doppler ultrasound of the RIGHT common, internal and external carotid arteries and the vertebral arteries was performed. Rey scale imaging, velocity spectral waveform analysis, and c olor flow Doppler were employed. The technologist was unable to obtain access to perform ultrasound o f the left carotid artery. HISTORY: stroke COMPARISONS: None . Note: Measurement of carotid stenosis is based on flow velocity values that correlate with the [place] Symptomatic Carotid Endarterectomy Trial (NASCET) based stenosis criteria using the internal carotid artery diameter as the denominator for stenosis calculation. FINDINGS: Right carotid artery: Velocities: ICA PSV: 107 cm/sec ICA End diastolic: 70 cm/sec CCA PSV: 110 cm/sec IC/CC ratio: 1. 0 Plaque/color flow: The internal carotid artery is tortuous. Heterogeneous partially calcified plaque visualized in the carotid bulb extending into the origin of the internal carotid artery. . Right vertebral artery: Antegrade systolic and diastolic flow IMPRESSION: 16-49% stenosis right internal carotid artery secondary to heterogeneous and calcified p laque. No evidence for occlusion or high-grade stenosis. Antegrade flow seen in the right vertebral artery. The technologist was unable to achieve access toevaluate the left internal carotid artery. This document is electronically signed by Alfredito Triniadd MD., May 14 2018 02:41:12 PM ET
--- NOTE | 2018-05-14 19:02 | Consultation ---
History of Present Illness Consult date: 05/14/18 Requesting physician: PEMA AWAN Reason for Consult: lower extremity weakness History of present illness: 63 YO Male with HTN, CVA, CHF, DM, ESRD on HD (M,W,F), Seizure Disorder not currently taking AED, CAD S/P Stent Placement presents to ED for evaluation. Pt was confused on admission. It was noted that he had missed his Mon. 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 Thept. also complained of bilateral lower extremity weakness on admission and a stroke work-up followed. There has been no evidence of acute ischemia. On questioning the pt. at this time, he is describing intense pain in the lower extremities which prohibits him from walking. This is why he missed his appointment for dialysis; he awakened from sleep and was unable to walk because of the pain. His had left earlier for work. He was alone and could not get to dialysis. He has had lower extremity pain on and off for a year (?) His primary care doctor told him it was gout. He states that sometimes he wakes up with intense pain in both feet. It is most painful when he tries to walk. Past History Past Medical History: diabetes, dialysis, ESRD, hypertension, hyperlipidemia, liver disease, seizures Past Surgical History: Other (left upper extremity AV fistula placement) Family history: diabetes, hypertension Medications and Allergies Allergies Allergy/AdvReac Type Severity Reaction Status Date / Time No Known Allergies Allergy Verified 02/28/17 00:21 Home Medications Medication Instructions Recorded Confirmed Last Taken Type Rosuvastatin Calcium [Crestor] 20 mg PO QHS 07/03/17 05/13/18 1 Day Ago History ~03/10/18 Sevelamer Carbonate [Renvela] 2,400 mg PO TIDWM 07/03/17 05/13/18 1 Day Ago History ~03/10/18 Aspirin [Aspirin BABY CHEW TAB] 81 mg PO QDAY #30 tab.chew 07/05/17 05/13/18 1 Day Ago Rx ~03/10/18 B Complex 11/Folic/C/Biot/Zinc 1 each PO DAILY 02/13/18 05/13/18 1 Day Ago History [Dialyvite with Zinc Tablet] ~03/10/18 Ergocalciferol (Vitamin D2) 50,000 unit PO QWEEK 02/13/18 05/13/18 1 Day Ago History [Drisdol] ~03/10/18 Omeprazole 20 mg PO QDAY 02/13/18 05/13/18 1 Day Ago History ~03/10/18 ISOSORBIDE MONOnitrate [Imdur ER] 30 mg PO DAILY #30 tablet 02/14/18 05/13/18 1 Day Ago Rx ~03/10/18 Metoprolol [Lopressor TAB] 12.5 mg PO BID #30 tablet 02/14/18 05/13/18 1 Day Ago Rx ~03/10/18 Gabapentin [Neurontin] 100 mg PO BID #60 capsule 05/03/18 05/13/18 Unknown Rx Verapamil [Calan] 80 mg PO Q8HR #90 tablet 05/03/18 05/13/18 Unknown Rx Hydroxyzine HCl [hydrOXYzine] 50 mg PO TID 05/14/18 05/14/18 Unknown History traMADol [Ultram] 50 mg PO Q6HR PRN 05/14/18 05/14/18 Unknown History Active Meds: Active Medications Acetaminophen (Tylenol) 650 mg PO Q4H PRN PRN Reason: Pain, Mild (1-3) Acetaminophen/Hydrocodone Bitart ([place] 5/325) 1 each PO Q6H PRN PRN Reason: Pain, Moderate (4-6) Last Admin: 05/14/18 09:08 Dose: 1 each Documented by: Aspirin (Aspirin) 325 mg PO QDAY [facility] Last Admin: 05/14/18 09:07 Dose: 325 mg Documented by: Atorvastatin Calcium (Lipitor) 40 mg PO QHS [facility] Bisacodyl (Dulcolax) 10 mg [place] QDAY PRN PRN Reason: Constipation Gabapentin (Neurontin) 300 mg PO Q8HR [facility] Heparin Sodium (Porcine) (Heparin) 5,000 unit SUB-Q Q12HR [facility] Last Admin: 05/14/18 09:09 Dose: 5,000 unit Documented by: Hydralazine HCl (Apresoline) 10 mg IV Q6HR PRN PRN Reason: Hypertension Last Admin: 05/14/18 13:47 Dose: 10 mg Documented by: Hydroxyzine HCl (Atarax) 50 mg PO TID [facility] Last Admin: 05/14/18 13:32 Dose: 50 mg Documented by: Sodium Chloride (Nacl 0.9%) 100 mls @ 999 mls/hr IV JEANINE PRN PRN Reason: Hypotension Magnesium Hydroxide (Milk Of Magnesia) 30 ml PO Q4H PRN PRN Reason: Constipation Last Admin: 05/14/18 03:24 Dose: 30 ml Documented by: Metoclopramide HCl (Reglan) 2.5 mg PO Q6H PRN PRN Reason: Nausea And Vomiting Multivit/Ca Carb/B Cmplx/FA/Prenat (Renal Caps) 1 cap PO QDAY [facility] Last Admin: 05/14/18 09:07 Dose: 1 cap Documented by: Ondansetron HCl (Zofran) 4 mg IV Q8H PRN PRN Reason: Nausea And Vomiting Pantoprazole Sodium (Protonix) 20 mg PO QDAY [facility] Last Admin: 05/14/18 09:08 Dose: 20 mg Documented by: Promethazine HCl (Phenergan) 25 mg [place] Q6H PRN PRN Reason: Nausea And Vomiting Sevelamer Carbonate (Renvela) 2,400 mg PO TIDWM [facility] Last Admin: 05/14/18 17:14 Dose: 2,400 mg Documented by: Sodium Chloride (Sodium Chloride Flush Syringe 10 Ml) 10 ml IV PRN PRN PRN Reason: LINE FLUSH Tramadol HCl (Ultram) 50 mg PO Q6HR PRN PRN Reason: Pain Verapamil HCl (Calan) 80 mg PO Q8HR [facility] Last Admin: 05/14/18 13:32 Dose: 80 mg Documented by: Review of Systems All systems: negative Neurological: parathesias, gait dysfunction, burning pain Physical Examination - Vital Signs Vital Signs: Vital Signs Pulse Ox 85 05/13/18 10:36 - Physical Exam Narrative exam: General - Awake and alert. Sitting up in bed. Neurological Evaluation - Speech is fluent and he relates his history well. in file operator - EOMs full, face symmetric, tongue midline. V-1 thru V-3 intact bilaterally. Hearing down on the right. Motor - 5/5. right shoulder pain. LEs - symmetric LE strength. Reflexes - trace throughout. Sensory - Intact vibration, and a few errors on position sense in toes. Soft touch is intact. Sharp sensation is with extreme hyperesthesia. Cerebellar - intact Results - Laboratory Findings CBC and BMP: 05/13/18 11:23 05/13/18 11:23 Abnormal Lab Findings: Abnormal Labs 05/13/18 05/13/18 05/13/18 11:23 11:23 11:23 RBC 3.28 L Hgb 10.9 L Hct 32.6 L MCV 99 H MCH 33 H RDW 15.6 H [place] % (Auto) 9.3 H Eos % (Auto) 5.0 H Lymph # 1.1 L Sodium 135 L Potassium 7.4 H* Chloride 94.1 L BUN 121 H Creatinine 14.1 H POC Glucose Troponin T 0.042 H NT-Pro-B Natriuret Pep Albumin 3.8 L HDL Cholesterol 68 H Urine pH Salicylates < 0.3 L Acetaminophen 05/13/18 05/13/18 05/13/18 11:23 13:08 15:22 RBC Hgb Hct MCV MCH RDW [place] % (Auto) Eos % (Auto) Lymph # Sodium Potassium Chloride BUN Creatinine POC Glucose 41 L Troponin T NT-Pro-B Natriuret Pep 4257 H Albumin HDL Cholesterol Urine pH Salicylates Acetaminophen < 5.0 L 05/14/18 05/14/18 02:30 08:10 RBC Hgb Hct MCV MCH RDW [place] % (Auto) Eos % (Auto) Lymph # Sodium Potassium Chloride BUN Creatinine POC Glucose 67 L Troponin T NT-Pro-B Natriuret Pep Albumin HDL Cholesterol Urine pH 8.0 H Salicylates Acetaminophen Assessment and Plan 63 yr old male with hx of HTN, CVA, CHF, DM, ESRD on HD (M,W,F), Seizure Disorder not currently taking AED, CAD S/P Stent Placement presented to ED for lower extremity weakness, which it turns out is really more pain related. Based on the patient's hx and exam, he seems to have a small fiber neuropathy, for which he has several causes to invoke. His MRI scan did reveal several chronic lacunes and small vessel disease. Plan - Trial of Neurontin at 300 mg TID. PT/OT
[2018-05-14] MEDS ORDERED: NON-FORMULARY (Rosuvastatin Calcium [Crestor] 20 MG) PO SCH (22:00)
[2018-05-14] MEDS: NEURONTIN PO SCH (22:37)
[2018-05-15] MEDS: APRESOLINE IV PRN (04:41)
[2018-05-15] MEDS: NEURONTIN PO SCH ×3 (06:17→22:05)
[2018-05-15] MEDS: CALAN PO SCH ×3 (06:18→22:09)
--- NOTE | 2018-05-15 09:06 | Progress Note ---
Assessment and Plan - Patient Problems (1) Hyperkalemia Current Visit: Yes Status: Acute Plan to address problem: Maintain on 2K dialysate bath. Please ensure that he is on a low potassium diet. (2) Uremic encephalopathy Current Visit: Yes Status: Acute Plan to address problem: Improved mental status after dialysis session yesterday. We'll continue to monitor. Counseled patient on importance of compliance with his regular hemodialysis sessions. (3) ESRD (end stage renal disease) Current Visit: Yes Status: Chronic Plan to address problem: Maintain patient on a Friday inpatient hemodialysis schedule. (4) Hypertensive chronic kidney disease with stage 5 chronic kidney disease or end stage renal disease Current Visit: No Status: Chronic Plan to address problem: Continue current regimen at this time. We'll continue to monitor. (5) Anemia in chronic kidney disease Current Visit: No Status: Acute Qualifiers: Chronic kidney disease stage: on chronic dialysis Qualified Code(s): N18.6 - End stage renal disease; D63.1 - Anemia in chronic kidney disease; Z99.2 - Dependence on renal dialysis Plan to address problem: We'll continue to monitor his H&H levels. Epogen with hemodialysis. (6) Type 2 diabetes mellitus with diabetic chronic kidney disease Current Visit: No Status: Chronic Qualifiers: Chronic kidney disease stage: on chronic dialysis Plan to address problem: Diabetes management per primary team. (7) Secondary hyperparathyroidism (of renal origin) Current Visit: No Status: Chronic Plan to address problem: Favor to continue patient on home phosphate binder regimen. Subjective Date of service: 05/15/18 Interval history: No acute issues overnight. Labs pending this morning. Plan for HD today. Neurology consult noted. Objective - Vital Signs Vital signs: Vital Signs - 12hr 05/14/18 05/14/18 05/15/18 22:25 22:39 00:11 Temperature 98.1 F Pulse Rate 72 Pulse Rate [ 72 Apical] Respiratory 18 18 Rate Blood Pressure 140/87 162/93 O2 Sat by Pulse 100 Oximetry 05/15/18 05/15/18 05/15/18 04:36 04:41 06:18 Temperature 98.3 F Pulse Rate 78 77 81 Pulse Rate [ Apical] Respiratory 18 Rate Blood Pressure 178/116 178/116 156/97 O2 Sat by Pulse 94 Oximetry - General Appearance General appearance: well-developed, well-nourished, appears stated age EENT: ATNC, PERRL Neck: no JVD, no thyromegaly Respiratory: Present: Clear to Ascultation Cardiology: regular, S1S2 Gastrointestinal: normal, normoactive bowel sounds Integumentary: no rash, warm and dry Neurologic: no focal deficit, no asterixis, alert and oriented x3 Musculoskeletal: other (-edema ) Psychiatric: cooperative - Lab 05/13/18 11:23 05/13/18 11:23 Most recent lab results Calcium 9.7 mg/dL (8.4-10.2) 05/13/18 11:23 - Allied health notes Allied health notes reviewed: nursing Medications & Allergies - Medications Allergies/Adverse Reactions: Allergies No Known Allergies Allergy (Verified 02/28/17 00:21) Home Medications: Home Medications Medication Instructions Recorded Confirmed Last Taken Type Rosuvastatin Calcium [Crestor] 20 mg PO QHS 07/03/17 05/13/18 1 Day Ago History ~03/10/18 Sevelamer Carbonate [Renvela] 2,400 mg PO TIDWM 07/03/17 05/13/18 1 Day Ago History ~03/10/18 Aspirin [Aspirin BABY CHEW TAB] 81 mg PO QDAY #30 tab.chew 07/05/17 05/13/18 1 Day Ago Rx ~03/10/18 B Complex 11/Folic/C/Biot/Zinc 1 each PO DAILY 02/13/18 05/13/18 1 Day Ago History [Dialyvite with Zinc Tablet] ~03/10/18 Ergocalciferol (Vitamin D2) 50,000 unit PO QWEEK 02/13/18 05/13/18 1 Day Ago History [Drisdol] ~03/10/18 Omeprazole 20 mg PO QDAY 02/13/18 05/13/18 1 Day Ago History ~03/10/18 ISOSORBIDE MONOnitrate [Imdur ER] 30 mg PO DAILY #30 tablet 02/14/18 05/13/18 1 Day Ago Rx ~03/10/18 Metoprolol [Lopressor TAB] 12.5 mg PO BID #30 tablet 02/14/18 05/13/18 1 Day Ago Rx ~03/10/18 Gabapentin [Neurontin] 100 mg PO BID #60 capsule 05/03/18 05/13/18 Unknown Rx Verapamil [Calan] 80 mg PO Q8HR #90 tablet 05/03/18 05/13/18 Unknown Rx Hydroxyzine HCl [hydrOXYzine] 50 mg PO TID 05/14/18 05/14/18 Unknown History traMADol [Ultram] 50 mg PO Q6HR PRN 05/14/18 05/14/18 Unknown History Active Medications: Generic Name Dose Route Start Last Admin Trade Name Freq PRN Reason Stop Dose Admin Acetaminophen 650 mg 05/13/18 14:08 Tylenol PO Q4H PRN Pain, Mild (1-3) Acetaminophen/Hydrocodone Bitart 1 each 05/14/18 03:16 05/14/18 09:08 [place] 5/325 PO 1 each Q6H PRN Administration Pain, Moderate (4-6) Aspirin 325 mg 05/14/18 10:00 05/14/18 09:07 Aspirin PO 325 mg QDAY GORDO Administration Atorvastatin Calcium 40 mg 05/14/18 22:00 05/14/18 22:37 Lipitor PO 40 mg QHS GORDO Administration Bisacodyl 10 mg 05/13/18 14:08 Dulcolax [place] QDAY PRN Constipation Gabapentin 300 mg 05/14/18 22:00 05/15/18 06:17 Neurontin PO 300 mg Q8HR GORDO Administration Heparin Sodium (Porcine) 5,000 unit 05/13/18 22:00 05/14/18 22:38 Heparin SUB-Q 5,000 unit Q12HR GORDO Administration Hydralazine HCl 10 mg 05/14/18 04:36 05/15/18 04:41 Apresoline IV 10 mg Q6HR PRN Administration Hypertension Hydroxyzine HCl 50 mg 05/14/18 08:00 05/14/18 20:29 Atarax PO 50 mg TID GORDO Administration Sodium Chloride 100 mls @ 999 mls/hr 05/13/18 12:24 Nacl 0.9% IV JEANINE PRN Hypotension Magnesium Hydroxide 30 ml 05/13/18 14:08 05/14/18 03:24 Milk Of Magnesia PO 30 ml Q4H PRN Administration Constipation Metoclopramide HCl 2.5 mg 05/14/18 06:48 Reglan PO Q6H PRN Nausea And Vomiting Multivit/Ca Carb/B Cmplx/FA/Prenat 1 cap 05/14/18 10:00 05/14/18 09:07 Renal Caps PO 1 cap QDAY GORDO Administration Ondansetron HCl 4 mg 05/13/18 14:08 Zofran IV Q8H PRN Nausea And Vomiting Pantoprazole Sodium 20 mg 05/14/18 10:00 05/14/18 09:08 Protonix PO 20 mg QDAY GORDO Administration Promethazine HCl 25 mg 05/13/18 14:08 Phenergan [place] Q6H PRN Nausea And Vomiting Sevelamer Carbonate 2,400 mg 05/14/18 08:00 05/14/18 17:14 Renvela PO 2,400 mg TIDWM GORDO Administration Sodium Chloride 10 ml 05/13/18 14:08 Sodium Chloride Flush Syringe 10 Ml IV PRN PRN LINE FLUSH Tramadol HCl 50 mg 05/14/18 06:36 Ultram PO Q6HR PRN Pain Verapamil HCl 80 mg 05/14/18 14:00 05/15/18 06:18 Calan PO 80 mg Q8HR GORDO Administration
[2018-05-15] MEDS: PROTONIX PO SCH (09:24)
[2018-05-15] MEDS: RENVELA PO SCH ×3 (09:31→18:03)
[2018-05-15] MEDS: Renal Caps PO SCH (09:31)
[2018-05-15] MEDS: ATARAX PO SCH ×3 (09:31→22:05)
[2018-05-15] MEDS: ASPIRIN PO SCH (09:31)
[2018-05-15] MEDS: HEPARIN SUB-Q SCH ×2 (09:32→22:05)
[2018-05-15] MEDS ORDERED: NACL 0.9% 100 ML IV PRN (10:43)
[2018-05-15] MEDS ORDERED: HALDOL IM NR (12:06)
--- NOTE | 2018-05-15 13:22 | Progress Note ---
Assessment and Plan Assessment and plan: Peripheral neuropathy. No evidence of CVA. MRI revealed no evidence of acute ischemia or hemorrhage. Small vessel ischemic changes. Bilateral small chronic lacunar infarcts. Neurology following. Trial of Neurontin at 300 mg TID. PT/OT Metabolic encephalopathy. Patient with uremic encephalopathy resolving after hemodialysis. ESRD. Continue Friday inpatient hemodialysis schedule. Hyperkalemia. Patient received dialysis yesterday on a 2K dialysate bath. Please ensure that he is on a low potassium diet. Next session of dialysis will be set up for tomorrow. Anemia chronic disease. Monitor H&H and transfuse for hemoglobin less than 7. Accelerated hypertension. Resume antihypertensive medications. Diabetes mellitus type 2. Continue Accu-Cheks and sliding scale insulin. CAD. Patient with coronary artery disease status post multivessel PCI. MPI completed on 01/2018 revealed small mildly reversible inferior wall defect consistent with RCA ischemia. Cardiac catheterization completed on that admission revealed Patent Cx and RCA stents, non-obstructive LAD disease, normal LVEF Disposition. Await physical therapy recommendations for discharge. History Interval history: No new issues overnight. Hospitalist Physical - Constitutional Vitals: Temp Pulse Resp BP Pulse Ox 97.9 F 75 20 125/73 95 05/15/18 13:08 05/15/18 13:06 05/15/18 13:06 05/15/18 13:06 05/15/18 13:06 General appearance: Present: no acute distress - EENT Eyes: Present: PERRL, EOM intact ENT: hearing intact, clear oral mucosa, dentition normal - Neck Neck: Present: supple, normal ROM - Respiratory Respiratory effort: normal Respiratory: bilateral: CTA - Cardiovascular Rhythm: regular Heart Sounds: Present: S1 & S2. Absent: gallop, rub - Extremities Extremities: no ischemia, No edema, Full ROM - Abdominal General gastrointestinal: soft, non-tender, non-distended, normal bowel sounds - Integumentary Integumentary: Present: clear, warm, dry - Neurologic Neurologic: CNII-XII intact, moves all extremities Results - Labs CBC & Chem 7: 05/13/18 11:23 05/13/18 11:23 Labs: Laboratory Last Values WBC 6.6 K/mm3 (4.5-11.0) 05/13/18 11:23 RBC 3.28 M/mm3 (3.65-5.03) L 05/13/18 11:23 Hgb 10.9 gm/dl (11.8-15.2) L 05/13/18 11:23 Hct 32.6 % (35.5-45.6) L 05/13/18 11:23 MCV 99 fl (84-94) H 05/13/18 11:23 MCH 33 pg (28-32) H 05/13/18 11:23 MCHC 33 % (32-34) 05/13/18 11:23 RDW 15.6 % (13.2-15.2) H 05/13/18 11:23 Plt Count 201 K/mm3 (140-440) 05/13/18 11:23 Lymph % (Auto) 16.7 % (13.4-35.0) 05/13/18 11:23 [place] % (Auto) 9.3 % (0.0-7.3) H 05/13/18 11:23 Eos % (Auto) 5.0 % (0.0-4.3) H 05/13/18 11:23 Baso % (Auto) 1.3 % (0.0-1.8) 05/13/18 11:23 Lymph # 1.1 K/mm3 (1.2-5.4) L 05/13/18 11:23 [place] # 0.6 K/mm3 (0.0-0.8) 05/13/18 11:23 Eos # 0.3 K/mm3 (0.0-0.4) 05/13/18 11:23 Baso # 0.1 K/mm3 (0.0-0.1) 05/13/18 11:23 Seg Neutrophils % 67.7 % (40.0-70.0) 05/13/18 11:23 Seg Neutrophils # 4.5 K/mm3 (1.8-7.7) 05/13/18 11:23 PT 13.4 Sec. (12.2-14.9) 05/13/18 11:23 INR 0.96 (0.87-1.13) 05/13/18 11:23 APTT 30.3 Sec. (24.2-36.6) 05/13/18 11:23 Thrombin Time 17.8 Sec. (15.1-19.6) 05/13/18 11:23 Sodium 135 mmol/L (137-145) L 05/13/18 11:23 Potassium 7.4 mmol/L (3.6-5.0) H* 05/13/18 11:23 Chloride 94.1 mmol/L (98-107) L 05/13/18 11:23 Carbon Dioxide 24 mmol/L (22-30) 05/13/18 11:23 Anion Gap 24 mmol/L 05/13/18 11:23 BUN 121 mg/dL (9-20) H 05/13/18 11:23 Creatinine 14.1 mg/dL (0.8-1.5) H 05/13/18 11:23 Estimated GFR 4 ml/min 05/13/18 11:23 BUN/Creatinine Ratio 9 % 05/13/18 11:23 Glucose 96 mg/dL (75-100) 05/13/18 11:23 POC Glucose 89 (70-105) 05/15/18 12:15 Lactic Acid 1.20 mmol/L (0.7-2.0) 05/13/18 13:08 Calcium 9.7 mg/dL (8.4-10.2) 05/13/18 11:23 Total Bilirubin 0.30 mg/dL (0.1-1.2) 05/13/18 11:23 AST 10 units/L (5-40) 05/13/18 11:23 ALT 8 units/L (7-56) 05/13/18 11:23 Alkaline Phosphatase 62 units/L (35-129) 05/13/18 11:23 Ammonia 45.0 umol/L (25-60) 05/13/18 11:47 Total Creatine Kinase 92 units/L (55-170) 05/13/18 11:23 CK-MB (CK-2) 2.9 ng/mL (0.0-4.0) 05/13/18 11:23 CK-MB (CK-2) Rel Index 3.1 (0-4) 05/13/18 11:23 Troponin T 0.042 ng/mL (0.00-0.029) H 05/13/18 11:23 NT-Pro-B Natriuret Pep 4257 pg/mL (0-900) H 05/13/18 13:08 Total Protein 7.0 g/dL (6.3-8.2) 05/13/18 11:23 Albumin 3.8 g/dL (3.9-5) L 05/13/18 11:23 Albumin/Globulin Ratio 1.2 % 05/13/18 11:23 Triglycerides 61 mg/dL (2-149) 05/13/18 11:23 Cholesterol 130 mg/dL (50-199) 05/13/18 11:23 LDL Cholesterol Direct 57 mg/dL (50-130) 05/13/18 11:23 HDL Cholesterol 68 mg/dL (40-59) H 05/13/18 11:23 Cholesterol/HDL Ratio 1.91 % 05/13/18 11:23 TSH 2.100 mlU/mL (0.270-4.200) 05/14/18 21:53 Urine Color Yellow (Yellow) 05/14/18 02:30 Urine Turbidity Clear (Clear) 05/14/18 02:30 Urine pH 8.0 (5.0-7.0) H 05/14/18 02:30 Ur Specific [place] 1.009 (1.003-1.030) 05/14/18 02:30 Urine Protein 100 mg/dl mg/dL (Negative) 05/14/18 02:30 Urine Glucose (UA) Neg mg/dL (Negative) 05/14/18 02:30 Urine Ketones Neg mg/dL (Negative) 05/14/18 02:30 Urine Blood Neg (Negative) 05/14/18 02:30 Urine Nitrite Neg (Negative) 05/14/18 02:30 Urine Bilirubin Neg (Negative) 05/14/18 02:30 Urine Urobilinogen < 2.0 mg/dL (<2.0) 05/14/18 02:30 Ur Leukocyte Esterase Neg (Negative) 05/14/18 02:30 Urine WBC (Auto) 1.0 /HPF (0.0-6.0) 05/14/18 02:30 Urine RBC (Auto) < 1.0 /HPF (0.0-6.0) 05/14/18 02:30 U Epithel Cells (Auto) < 1.0 /HPF (0-13.0) 05/14/18 02:30 Amorphous Crystals Few 05/14/18 02:30 Salicylates < 0.3 mg/dL (2.8-20.0) L 05/13/18 11:23 Acetaminophen < 5.0 ug/mL (10.0-30.0) L 05/13/18 11:23 Plasma/Serum Alcohol < 0.01 % (0-0.07) 05/13/18 11:23 Active Medications - Current Medications Current Medications: Generic Name Dose Route Start Last Admin Trade Name Freq PRN Reason Stop Dose Admin Acetaminophen 650 mg 05/13/18 14:08 Tylenol PO Q4H PRN Pain, Mild (1-3) Acetaminophen/Hydrocodone Bitart 1 each 05/14/18 03:16 05/14/18 09:08 [place] 5/325 PO 1 each Q6H PRN Administration Pain, Moderate (4-6) Aspirin 325 mg 05/14/18 10:00 05/15/18 09:31 Aspirin PO 325 mg QDAY GORDO Administration Atorvastatin Calcium 40 mg 05/14/18 22:00 05/14/18 22:37 Lipitor PO 40 mg QHS GORDO Administration Bisacodyl 10 mg 05/13/18 14:08 Dulcolax MI QDAY PRN Constipation Gabapentin 300 mg 05/14/18 22:00 05/15/18 06:17 Neurontin PO 300 mg Q8HR GORDO Administration Heparin Sodium (Porcine) 5,000 unit 05/13/18 22:00 05/15/18 09:32 Heparin SUB-Q 5,000 unit Q12HR GORDO Administration Hydralazine HCl 10 mg 05/14/18 04:36 05/15/18 04:41 Apresoline IV 10 mg Q6HR PRN Administration Hypertension Hydroxyzine HCl 50 mg 05/14/18 08:00 05/15/18 09:31 Atarax PO 50 mg TID GORDO Administration Sodium Chloride 100 mls @ 999 mls/hr 05/15/18 10:43 Nacl 0.9% IV JEANINE PRN Hypotension Magnesium Hydroxide 30 ml 05/13/18 14:08 05/14/18 03:24 Milk Of Magnesia PO 30 ml Q4H PRN Administration Constipation Metoclopramide HCl 2.5 mg 05/14/18 06:48 Reglan PO Q6H PRN Nausea And Vomiting Multivit/Ca Carb/B Cmplx/FA/Prenat 1 cap 05/14/18 10:00 05/15/18 09:31 Renal Caps PO 1 cap QDAY GORDO Administration Ondansetron HCl 4 mg 05/13/18 14:08 Zofran IV Q8H PRN Nausea And Vomiting Pantoprazole Sodium 20 mg 05/14/18 10:00 05/15/18 09:24 Protonix PO 20 mg QDAY GORDO Administration Promethazine HCl 25 mg 05/13/18 14:08 Phenergan MI Q6H PRN Nausea And Vomiting Sevelamer Carbonate 2,400 mg 05/14/18 08:00 05/15/18 12:21 Renvela PO 2,400 mg TIDWM GORDO Administration Sodium Chloride 10 ml 05/13/18 14:08 Sodium Chloride Flush Syringe 10 Ml IV PRN PRN LINE FLUSH Tramadol HCl 50 mg 05/14/18 06:36 Ultram PO Q6HR PRN Pain Verapamil HCl 80 mg 05/14/18 14:00 05/15/18 06:18 Calan PO 80 mg Q8HR GORDO Administration
[2018-05-16] MEDS: NEURONTIN PO SCH ×3 (06:35→21:48)
[2018-05-16] MEDS: CALAN PO SCH ×3 (06:43→22:14)
[2018-05-16] MEDS: RENVELA PO SCH ×3 (08:02→17:56)
[2018-05-16] MEDS: Renal Caps PO SCH (10:55)
[2018-05-16] MEDS: HEPARIN SUB-Q SCH ×2 (10:55→21:48)
[2018-05-16] MEDS: PROTONIX PO SCH (10:55)
[2018-05-16] MEDS: ASPIRIN PO SCH (11:00)
[2018-05-16] MEDS: ATARAX PO SCH ×3 (11:02→21:48)
--- NOTE | 2018-05-16 13:06 | Progress Note ---
Assessment and Plan Assessment and plan: Staph epidermidis bacteremia. Consult ID for further evaluation. Start vancomycin. Peripheral neuropathy. No evidence of CVA. MRI revealed no evidence of acute ischemia or hemorrhage. Small vessel ischemic changes. Bilateral small chronic lacunar infarcts. Neurology following. Trial of Neurontin at 300 mg TID. PT/OT Metabolic encephalopathy. Patient with uremic encephalopathy resolving after hemodialysis. ESRD. Continue Friday inpatient hemodialysis schedule. Hyperkalemia. Patient received dialysis yesterday on a 2K dialysate bath. Please ensure that he is on a low potassium diet. Next session of dialysis will be set up for tomorrow. Anemia chronic disease. Monitor H&H and transfuse for hemoglobin less than 7. Accelerated hypertension. Resume antihypertensive medications. Diabetes mellitus type 2. Continue Accu-Cheks and sliding scale insulin. CAD. Patient with coronary artery disease status post multivessel PCI. MPI completed on 01/2018 revealed small mildly reversible inferior wall defect consistent with RCA ischemia. Cardiac catheterization completed on that admission revealed Patent Cx and RCA stents, non-obstructive LAD disease, normal LVEF Disposition. Await physical therapy recommendations for discharge. History Interval history: No new issues overnight. Hospitalist Physical - Constitutional Vitals: Temp Pulse Resp BP Pulse Ox 98.6 F 107 H 20 133/65 95 05/16/18 11:10 05/16/18 11:10 05/16/18 09:50 05/16/18 11:10 05/16/18 09:50 General appearance: Present: no acute distress - EENT Eyes: Present: PERRL, EOM intact ENT: hearing intact, clear oral mucosa, dentition normal - Neck Neck: Present: supple, normal ROM - Respiratory Respiratory effort: normal Respiratory: bilateral: CTA - Cardiovascular Rhythm: regular Heart Sounds: Present: S1 & S2. Absent: gallop, rub - Extremities Extremities: no ischemia, No edema, Full ROM - Abdominal General gastrointestinal: soft, non-tender, non-distended, normal bowel sounds - Integumentary Integumentary: Present: clear, warm, dry - Neurologic Neurologic: CNII-XII intact, moves all extremities Results - Labs CBC & Chem 7: 05/13/18 11:23 05/13/18 11:23 Labs: Laboratory Last Values WBC 6.6 K/mm3 (4.5-11.0) 05/13/18 11:23 RBC 3.28 M/mm3 (3.65-5.03) L 05/13/18 11:23 Hgb 10.9 gm/dl (11.8-15.2) L 05/13/18 11:23 Hct 32.6 % (35.5-45.6) L 05/13/18 11:23 MCV 99 fl (84-94) H 05/13/18 11:23 MCH 33 pg (28-32) H 05/13/18 11:23 MCHC 33 % (32-34) 05/13/18 11:23 RDW 15.6 % (13.2-15.2) H 05/13/18 11:23 Plt Count 201 K/mm3 (140-440) 05/13/18 11:23 Lymph % (Auto) 16.7 % (13.4-35.0) 05/13/18 11:23 [place] % (Auto) 9.3 % (0.0-7.3) H 05/13/18 11:23 Eos % (Auto) 5.0 % (0.0-4.3) H 05/13/18 11:23 Baso % (Auto) 1.3 % (0.0-1.8) 05/13/18 11:23 Lymph # 1.1 K/mm3 (1.2-5.4) L 05/13/18 11:23 [place] # 0.6 K/mm3 (0.0-0.8) 05/13/18 11:23 Eos # 0.3 K/mm3 (0.0-0.4) 05/13/18 11:23 Baso # 0.1 K/mm3 (0.0-0.1) 05/13/18 11:23 Seg Neutrophils % 67.7 % (40.0-70.0) 05/13/18 11:23 Seg Neutrophils # 4.5 K/mm3 (1.8-7.7) 05/13/18 11:23 PT 13.4 Sec. (12.2-14.9) 05/13/18 11:23 INR 0.96 (0.87-1.13) 05/13/18 11:23 APTT 30.3 Sec. (24.2-36.6) 05/13/18 11:23 Thrombin Time 17.8 Sec. (15.1-19.6) 05/13/18 11:23 Sodium 135 mmol/L (137-145) L 05/13/18 11:23 Potassium 7.4 mmol/L (3.6-5.0) H* 05/13/18 11:23 Chloride 94.1 mmol/L (98-107) L 05/13/18 11:23 Carbon Dioxide 24 mmol/L (22-30) 05/13/18 11:23 Anion Gap 24 mmol/L 05/13/18 11:23 BUN 121 mg/dL (9-20) H 05/13/18 11:23 Creatinine 14.1 mg/dL (0.8-1.5) H 05/13/18 11:23 Estimated GFR 4 ml/min 05/13/18 11:23 BUN/Creatinine Ratio 9 % 05/13/18 11:23 Glucose 96 mg/dL (75-100) 05/13/18 11:23 POC Glucose 101 (70-105) 05/16/18 12:20 Lactic Acid 1.20 mmol/L (0.7-2.0) 05/13/18 13:08 Calcium 9.7 mg/dL (8.4-10.2) 05/13/18 11:23 Total Bilirubin 0.30 mg/dL (0.1-1.2) 05/13/18 11:23 AST 10 units/L (5-40) 05/13/18 11:23 ALT 8 units/L (7-56) 05/13/18 11:23 Alkaline Phosphatase 62 units/L (35-129) 05/13/18 11:23 Ammonia 45.0 umol/L (25-60) 05/13/18 11:47 Total Creatine Kinase 92 units/L (55-170) 05/13/18 11:23 CK-MB (CK-2) 2.9 ng/mL (0.0-4.0) 05/13/18 11:23 CK-MB (CK-2) Rel Index 3.1 (0-4) 05/13/18 11:23 Troponin T 0.042 ng/mL (0.00-0.029) H 05/13/18 11:23 NT-Pro-B Natriuret Pep 4257 pg/mL (0-900) H 05/13/18 13:08 Total Protein 7.0 g/dL (6.3-8.2) 05/13/18 11:23 Albumin 3.8 g/dL (3.9-5) L 05/13/18 11:23 Albumin/Globulin Ratio 1.2 % 05/13/18 11:23 Triglycerides 61 mg/dL (2-149) 05/13/18 11:23 Cholesterol 130 mg/dL (50-199) 05/13/18 11:23 LDL Cholesterol Direct 57 mg/dL (50-130) 05/13/18 11:23 HDL Cholesterol 68 mg/dL (40-59) H 05/13/18 11:23 Cholesterol/HDL Ratio 1.91 % 05/13/18 11:23 TSH 2.100 mlU/mL (0.270-4.200) 05/14/18 21:53 Urine Color Yellow (Yellow) 05/14/18 02:30 Urine Turbidity Clear (Clear) 05/14/18 02:30 Urine pH 8.0 (5.0-7.0) H 05/14/18 02:30 Ur Specific [place] 1.009 (1.003-1.030) 05/14/18 02:30 Urine Protein 100 mg/dl mg/dL (Negative) 05/14/18 02:30 Urine Glucose (UA) Neg mg/dL (Negative) 05/14/18 02:30 Urine Ketones Neg mg/dL (Negative) 05/14/18 02:30 Urine Blood Neg (Negative) 05/14/18 02:30 Urine Nitrite Neg (Negative) 05/14/18 02:30 Urine Bilirubin Neg (Negative) 05/14/18 02:30 Urine Urobilinogen < 2.0 mg/dL (<2.0) 05/14/18 02:30 Ur Leukocyte Esterase Neg (Negative) 05/14/18 02:30 Urine WBC (Auto) 1.0 /HPF (0.0-6.0) 05/14/18 02:30 Urine RBC (Auto) < 1.0 /HPF (0.0-6.0) 05/14/18 02:30 U Epithel Cells (Auto) < 1.0 /HPF (0-13.0) 05/14/18 02:30 Amorphous Crystals Few 05/14/18 02:30 Salicylates < 0.3 mg/dL (2.8-20.0) L 05/13/18 11:23 Acetaminophen < 5.0 ug/mL (10.0-30.0) L 05/13/18 11:23 Plasma/Serum Alcohol < 0.01 % (0-0.07) 05/13/18 11:23 Active Medications - Current Medications Current Medications: Generic Name Dose Route Start Last Admin Trade Name Freq PRN Reason Stop Dose Admin Acetaminophen 650 mg 05/13/18 14:08 Tylenol PO Q4H PRN Pain, Mild (1-3) Acetaminophen/Hydrocodone Bitart 1 each 05/14/18 03:16 05/14/18 09:08 [place] 5/325 PO 1 each Q6H PRN Administration Pain, Moderate (4-6) Aspirin 325 mg 05/14/18 10:00 05/16/18 11:00 Aspirin PO 325 mg QDAY GORDO Administration Atorvastatin Calcium 40 mg 05/14/18 22:00 05/15/18 22:05 Lipitor PO 40 mg QHS GORDO Administration Bisacodyl 10 mg 05/13/18 14:08 Dulcolax MI QDAY PRN Constipation Gabapentin 300 mg 05/14/18 22:00 05/16/18 06:35 Neurontin PO 300 mg Q8HR GORDO Administration Heparin Sodium (Porcine) 5,000 unit 05/13/18 22:00 05/16/18 10:55 Heparin SUB-Q 5,000 unit Q12HR GORDO Administration Hydralazine HCl 10 mg 05/14/18 04:36 05/15/18 04:41 Apresoline IV 10 mg Q6HR PRN Administration Hypertension Hydroxyzine HCl 50 mg 05/14/18 08:00 05/16/18 11:02 Atarax PO 50 mg TID GORDO Administration Sodium Chloride 100 mls @ 999 mls/hr 05/15/18 10:43 Nacl 0.9% IV JEANINE PRN Hypotension Magnesium Hydroxide 30 ml 05/13/18 14:08 05/14/18 03:24 Milk Of Magnesia PO 30 ml Q4H PRN Administration Constipation Metoclopramide HCl 2.5 mg 05/14/18 06:48 Reglan PO Q6H PRN Nausea And Vomiting Multivit/Ca Carb/B Cmplx/FA/Prenat 1 cap 05/14/18 10:00 05/16/18 10:55 Renal Caps PO 1 cap QDAY GORDO Administration Ondansetron HCl 4 mg 05/13/18 14:08 Zofran IV Q8H PRN Nausea And Vomiting Pantoprazole Sodium 20 mg 05/14/18 10:00 05/16/18 10:55 Protonix PO 20 mg QDAY GORDO Administration Promethazine HCl 25 mg 05/13/18 14:08 Phenergan MI Q6H PRN Nausea And Vomiting Sevelamer Carbonate 2,400 mg 05/14/18 08:00 05/16/18 11:02 Renvela PO 2,400 mg TIDWM GORDO Administration Sodium Chloride 10 ml 05/13/18 14:08 Sodium Chloride Flush Syringe 10 Ml IV PRN PRN LINE FLUSH Tramadol HCl 50 mg 05/14/18 06:36 Ultram PO Q6HR PRN Pain Verapamil HCl 80 mg 05/14/18 14:00 05/16/18 06:43 Calan PO Not Given Q8HR GORDO
[2018-05-16 14:27] LABS: Basophils # (Auto) 0.1 K/mm3 (0.0-0.1); Eosinophils # (Auto) 0.2 K/mm3 (0.0-0.4); Eosinophils % (Auto) 4.6 % (0.0-4.3); Monocytes # (Auto) 0.9 K/mm3 (0.0-0.8); Monocytes % (Auto) 16.5 % (0.0-7.3)
[2018-05-16 14:28] LABS: Calcium 9.7 mg/dL (8.4-10.2)
[2018-05-16 14:53] LABS: Hematocrit 35.2 % (35.5-45.6); Hemoglobin 11.8 gm/dl (11.8-15.2); Mean Corpuscular HGB Conc 34 % (32-34); Mean Corpuscular Volume 100 fl (84-94); Platelet Count 180 K/mm3 (140-440); Red Blood Count 3.51 M/mm3 (3.65-5.03); Red Cell Distribution Width 15.3 % (13.2-15.2)
--- NOTE | 2018-05-16 15:02 | Progress Note ---
Assessment and Plan - Patient Problems (1) ESRD (end stage renal disease) Current Visit: Yes Status: Chronic Plan to address problem: Stable electrolytes and volume status now. Needs to adhere to Dialysis regimen (2) Gait abnormality Current Visit: Yes Status: Acute Plan to address problem: Patient with history of falls at home. Will benefit from home health with physical therapy or placement at subacute rehabilitation (3) Hyperkalemia Current Visit: Yes Status: Acute Plan to address problem: Potassium has improved (4) Uremic encephalopathy Current Visit: Yes Status: Acute Plan to address problem: Secondary to missed dialysis. Improved (5) Hypertensive chronic kidney disease with stage 5 chronic kidney disease or end stage renal disease Current Visit: No Status: Chronic Plan to address problem: Follow-up blood pressure on current medications (6) Neuropathy Current Visit: No Status: Chronic Plan to address problem: Neuropathy probably secondary to type 2 diabetes mellitus. Decrease gabapentin to 300 mg at bedtime only given the advanced kidney disease Subjective Date of service: 05/16/18 Principal diagnosis: end-stage renal disease Interval history: Patient seen lying in bed. He feels better. He does not want to go to rehabilitation. He believes he can walk Objective - Exam Narrative Exam: Middle-aged -[place] male lying in bed in no acute distress HEENT: NCAT, pink oral mucous membrane Neck: Supple, no venous distention CVS: S1S2 RRR with systolic murmur,No rub or gallop Chest: Diminished breath sounds bilaterally Abdomen: Distended, soft, nontender, no organomegaly, bowel sounds are present Extremities: No edema Neuro: Awake, alert no focal deficits - Vital Signs Vital signs: Vital Signs - 12hr 05/16/18 05/16/18 05/16/18 05:25 06:43 08:39 Temperature 98.2 F Pulse Rate 82 82 Pulse Rate [ 88 Apical] Pulse Rate [ 88 Left Radial] Pulse Rate [ 88 Right Radial] Respiratory 18 20 Rate Blood Pressure 132/82 132/82 Blood Pressure [Left] O2 Sat by Pulse 93 98 Oximetry 05/16/18 05/16/18 05/16/18 09:50 09:51 11:10 Temperature 98.7 F 98.6 F Pulse Rate 95 H 107 H Pulse Rate [ Apical] Pulse Rate [ Left Radial] Pulse Rate [ Right Radial] Respiratory 20 Rate Blood Pressure 125/67 Blood Pressure 133/65 [Left] O2 Sat by Pulse 95 Oximetry - Lab 04/06/19 13:35 05/16/18 13:35 Most recent lab results Calcium 9.7 mg/dL (8.4-10.2) 05/16/18 13:35 Medications & Allergies - Medications Allergies/Adverse Reactions: Allergies No Known Allergies Allergy (Verified 02/28/17 00:21) Home Medications: Home Medications Medication Instructions Recorded Confirmed Last Taken Type Rosuvastatin Calcium [Crestor] 20 mg PO QHS 07/03/17 05/13/18 1 Day Ago History ~03/10/18 Sevelamer Carbonate [Renvela] 2,400 mg PO TIDWM 07/03/17 05/13/18 1 Day Ago History ~03/10/18 Aspirin [Aspirin BABY CHEW TAB] 81 mg PO QDAY #30 tab.chew 07/05/17 05/13/18 1 Day Ago Rx ~03/10/18 B Complex 11/Folic/C/Biot/Zinc 1 each PO DAILY 02/13/18 05/13/18 1 Day Ago History [Dialyvite with Zinc Tablet] ~03/10/18 Ergocalciferol (Vitamin D2) 50,000 unit PO QWEEK 02/13/18 05/13/18 1 Day Ago History [Drisdol] ~03/10/18 Omeprazole 20 mg PO QDAY 02/13/18 05/13/18 1 Day Ago History ~03/10/18 ISOSORBIDE MONOnitrate [Imdur ER] 30 mg PO DAILY #30 tablet 02/14/18 05/13/18 1 Day Ago Rx ~03/10/18 Metoprolol [Lopressor TAB] 12.5 mg PO BID #30 tablet 02/14/18 05/13/18 1 Day Ago Rx ~03/10/18 Gabapentin [Neurontin] 100 mg PO BID #60 capsule 05/03/18 05/13/18 Unknown Rx Verapamil [Calan] 80 mg PO Q8HR #90 tablet 05/03/18 05/13/18 Unknown Rx Hydroxyzine HCl [hydrOXYzine] 50 mg PO TID 05/14/18 05/14/18 Unknown History traMADol [Ultram] 50 mg PO Q6HR PRN 05/14/18 05/14/18 Unknown History Active Medications: Generic Name Dose Route Start Last Admin Trade Name Freq PRN Reason Stop Dose Admin Acetaminophen 650 mg 05/13/18 14:08 Tylenol PO Q4H PRN Pain, Mild (1-3) Acetaminophen/Hydrocodone Bitart 1 each 05/14/18 03:16 05/14/18 09:08 [place] 5/325 PO 1 each Q6H PRN Administration Pain, Moderate (4-6) Aspirin 325 mg 05/14/18 10:00 05/16/18 11:00 Aspirin PO 325 mg QDAY GORDO Administration Atorvastatin Calcium 40 mg 05/14/18 22:00 05/15/18 22:05 Lipitor PO 40 mg QHS GORDO Administration Bisacodyl 10 mg 05/13/18 14:08 Dulcolax [place] QDAY PRN Constipation Gabapentin 300 mg 05/16/18 22:00 Neurontin PO QHS GORDO Heparin Sodium (Porcine) 5,000 unit 05/13/18 22:00 05/16/18 10:55 Heparin SUB-Q 5,000 unit Q12HR GORDO Administration Hydralazine HCl 10 mg 05/14/18 04:36 05/15/18 04:41 Apresoline IV 10 mg Q6HR PRN Administration Hypertension Hydroxyzine HCl 50 mg 05/14/18 08:00 05/16/18 11:02 Atarax PO 50 mg TID GORDO Administration Sodium Chloride 100 mls @ 999 mls/hr 05/15/18 10:43 Nacl 0.9% IV JEANINE PRN Hypotension Metoclopramide HCl 2.5 mg 05/14/18 06:48 Reglan PO Q6H PRN Nausea And Vomiting Multivit/Ca Carb/B Cmplx/FA/Prenat 1 cap 05/14/18 10:00 05/16/18 10:55 Renal Caps PO 1 cap QDAY GORDO Administration Ondansetron HCl 4 mg 05/13/18 14:08 Zofran IV Q8H PRN Nausea And Vomiting Pantoprazole Sodium 20 mg 05/14/18 10:00 05/16/18 10:55 Protonix PO 20 mg QDAY GORDO Administration Promethazine HCl 25 mg 05/13/18 14:08 Phenergan [place] Q6H PRN Nausea And Vomiting Sevelamer Carbonate 2,400 mg 05/14/18 08:00 05/16/18 11:02 Renvela PO 2,400 mg TIDWM GORDO Administration Sodium Chloride 10 ml 05/13/18 14:08 Sodium Chloride Flush Syringe 10 Ml IV PRN PRN LINE FLUSH Tramadol HCl 50 mg 05/16/18 14:57 Ultram PO Q12HR PRN Pain Verapamil HCl 80 mg 05/14/18 14:00 05/16/18 06:43 Calan PO Not Given Q8HR GORDO
[2018-05-16 16:53] LABS: Basophils % (Manual) 0 % (0.0-1.8); Total Cells Counted 100
[2018-05-16 16:54] LABS: Anisocytosis Few; Platelet Estimate Consistent w Auto
[2018-05-17] MEDS: NORCO 5/325 PO PRN (05:54)
[2018-05-17] MEDS: CALAN PO SCH ×3 (05:54→22:45)
[2018-05-17 07:59] LABS: Hematocrit 34.2 % (35.5-45.6); Hemoglobin 11.3 gm/dl (11.8-15.2); Mean Corpuscular HGB Conc 33 % (32-34); Mean Corpuscular Volume 100 fl (84-94); Platelet Count 174 K/mm3 (140-440); Red Blood Count 3.41 M/mm3 (3.65-5.03); Red Cell Distribution Width 15.1 % (13.2-15.2)
[2018-05-17] MEDS ORDERED: KIONEX PO ONE (08:31)
[2018-05-17] MEDS: ATARAX PO SCH ×3 (08:59→22:39)
[2018-05-17] MEDS: RENVELA PO SCH ×3 (08:59→17:09)
[2018-05-17] MEDS: APRESOLINE IV PRN (09:02)
[2018-05-17] MEDS: ASPIRIN PO SCH (09:33)
[2018-05-17] MEDS: PROTONIX PO SCH (09:33)
[2018-05-17] MEDS: HEPARIN SUB-Q SCH ×2 (09:34→22:38)
[2018-05-17] MEDS: Renal Caps PO SCH (09:34)
[2018-05-17 09:37] LABS: Band Neutrophils # (Manual) 0.2 K/mm3; Basophils % (Manual) 0 % (0.0-1.8); Platelet Estimate Consistent w Auto; RBC Morphology Normal; Total Cells Counted 100
[2018-05-17 10:20] LABS: Calcium 9.5 mg/dL (8.4-10.2)
--- NOTE | 2018-05-17 11:10 | Consultation ---
History of Present Illness - Reason for Consult Consult date: 05/17/18 Staph Bacteremia Requesting physician: PEMA AWAN - History of Present Illness This patient is a 63 -year old male with a past medical history of End-stage renal disease, on dialysis, Friday, Friday, Friday, hypertension, stroke, congestive heart failure, diabetes, seizure, Heart disease, stents that was brought to the ED on 05/13/18 for altered mental status and inability to ambulate upon waking from sleep. On admission WBC 6.6, Creatinine 8.6, Temperature 98, HR 84, BP 130/89, U/A was not consistent with a UTI. Blood cultures were drawn and show Staphlococcus Epidermidis 4 out of 4 bottles,. Urine Culture showed 10-110K of mixed culture of greater than 2 organisms. Review of Systems General: no fever,chills, nightsweats, unintentional weight change, +change in appetite Cutaneous: no rash, pruritus Head: no headaches or injury Eyes: no changes in vision, eye pain, double vision Ears: no ear pain, ear discharge, ringing or hearing loss Nose: no nose bleeding, stuffiness Mouth & throat: no bleeding gums, no horseness, no dental problems, or swollen glands Neck: no pain, node enlargement/lumps, tyroid enlargement or tenderness Respiratory: no cough, wheezing, sputum, hemoptysis, pleuritic chest pain Cardiovascular: no chest pain, leg edema, cyanosis, ROCA, orthopnea Musculoskeletal: no decreased joint motion, bone or joint pain, joint swelling, muscle aches Gastrointestinal: no nausea, vomiting, hematemesis, diarrhea, constipation, melena, bright red blood in stools, fecal incontinence, jaundice Genitourinary/Reproductive: + frequent urination, no dysuria, hematuria, incontinence Neurogical: no seizures, no headaches, no weakness, no paresthesias, no loss of speech or vision; no memory loss, no vertigo, no tremors, no numbness Psychiatric: stable mood; no excessive anxiety, sadness or moodiness Past History Past Medical History: diabetes, dialysis, ESRD, hypertension, hyperlipidemia, liver disease, seizures Past Surgical History: Other (left upper extremity AV fistula placement) Family history: diabetes, hypertension Medications and Allergies Allergies Allergy/AdvReac Type Severity Reaction Status Date / Time No Known Allergies Allergy Verified 02/28/17 00:21 Home Medications Medication Instructions Recorded Confirmed Last Taken Type Rosuvastatin Calcium [Crestor] 20 mg PO QHS 07/03/17 05/13/18 1 Day Ago History ~03/10/18 Sevelamer Carbonate [Renvela] 2,400 mg PO TIDWM 07/03/17 05/13/18 1 Day Ago History ~03/10/18 Aspirin [Aspirin BABY CHEW TAB] 81 mg PO QDAY #30 tab.chew 07/05/17 05/13/18 1 Day Ago Rx ~03/10/18 B Complex 11/Folic/C/Biot/Zinc 1 each PO DAILY 02/13/18 05/13/18 1 Day Ago History [Dialyvite with Zinc Tablet] ~03/10/18 Ergocalciferol (Vitamin D2) 50,000 unit PO QWEEK 02/13/18 05/13/18 1 Day Ago History [Drisdol] ~03/10/18 Omeprazole 20 mg PO QDAY 02/13/18 05/13/18 1 Day Ago History ~03/10/18 ISOSORBIDE MONOnitrate [Imdur ER] 30 mg PO DAILY #30 tablet 02/14/18 05/13/18 1 Day Ago Rx ~03/10/18 Metoprolol [Lopressor TAB] 12.5 mg PO BID #30 tablet 02/14/18 05/13/18 1 Day Ago Rx ~03/10/18 Gabapentin [Neurontin] 100 mg PO BID #60 capsule 05/03/18 05/13/18 Unknown Rx Verapamil [Calan] 80 mg PO Q8HR #90 tablet 05/03/18 05/13/18 Unknown Rx Hydroxyzine HCl [hydrOXYzine] 50 mg PO TID 05/14/18 05/14/18 Unknown History traMADol [Ultram] 50 mg PO Q6HR PRN 05/14/18 05/14/18 Unknown History Active Meds: Active Medications Acetaminophen (Tylenol) 650 mg PO Q4H PRN PRN Reason: Pain, Mild (1-3) Acetaminophen/Hydrocodone Bitart ([place] 5/325) 1 each PO Q6H PRN PRN Reason: Pain, Moderate (4-6) Last Admin: 05/17/18 05:54 Dose: 1 each Documented by: Aspirin (Aspirin) 325 mg PO QDAY [facility] Last Admin: 05/17/18 09:33 Dose: 325 mg Documented by: Atorvastatin Calcium (Lipitor) 40 mg PO QHS [facility] Last Admin: 05/16/18 21:47 Dose: 40 mg Documented by: Bisacodyl (Dulcolax) 10 mg SC QDAY PRN PRN Reason: Constipation Gabapentin (Neurontin) 300 mg PO QHS [facility] Last Admin: 05/16/18 21:48 Dose: 300 mg Documented by: Heparin Sodium (Porcine) (Heparin) 5,000 unit SUB-Q Q12HR [facility] Last Admin: 05/17/18 09:34 Dose: 5,000 unit Documented by: Hydralazine HCl (Apresoline) 10 mg IV Q6HR PRN PRN Reason: Hypertension Last Admin: 05/17/18 09:02 Dose: 10 mg Documented by: Hydroxyzine HCl (Atarax) 50 mg PO TID [facility] Last Admin: 05/17/18 08:59 Dose: 50 mg Documented by: Sodium Chloride (Nacl 0.9%) 100 mls @ 999 mls/hr IV JEANINE PRN PRN Reason: Hypotension Metoclopramide HCl (Reglan) 2.5 mg PO Q6H PRN PRN Reason: Nausea And Vomiting Multivit/Ca Carb/B Cmplx/FA/Prenat (Renal Caps) 1 cap PO QDAY [facility] Last Admin: 05/17/18 09:34 Dose: 1 cap Documented by: Ondansetron HCl (Zofran) 4 mg IV Q8H PRN PRN Reason: Nausea And Vomiting Pantoprazole Sodium (Protonix) 20 mg PO QDAY [facility] Last Admin: 05/17/18 09:33 Dose: 20 mg Documented by: Promethazine HCl (Phenergan) 25 mg SC Q6H PRN PRN Reason: Nausea And Vomiting Sevelamer Carbonate (Renvela) 2,400 mg PO TIDWM [facility] Last Admin: 05/17/18 08:59 Dose: 2,400 mg Documented by: Sodium Chloride (Sodium Chloride Flush Syringe 10 Ml) 10 ml IV PRN PRN PRN Reason: LINE FLUSH Tramadol HCl (Ultram) 50 mg PO Q12H PRN PRN Reason: Pain Verapamil HCl (Calan) 80 mg PO Q8HR [facility] Last Admin: 05/17/18 05:54 Dose: 80 mg Documented by: Physical Examination - Physical Exam Narrative exam: Constitutional: Alert, cooperative. No acute distress Head, Ears, Nose: Normocephalic, atraumatic. External ears, nose normal Eyes: Conjunctivae/corneas clear. No icterus. No ptosis. Neck: Supple, no meningeal signs Oral: dentition fair, no thrush Cardiovascular: S1, S2 normal. Respiratory: Good air entry, clear to auscultation bilaterally GI: Soft, non-tender; bowel sounds normal. No peritoneal signs Musculoskeletal: No pedal edema, no cyanosis., + Left AVF Skin: No rash or abscess. Hem/Lymphatic: No palpable cervical or supraclavicular nodes. No lymphangitis Psych: Mood ok. Affect normal Neurological: Awake, alert, oriented. - Constitutional Vitals: Vital Signs Temp Pulse Resp BP Pulse Ox 98.4 F 129 H 20 165/95 99 05/17/18 11:06 05/17/18 09:02 05/17/18 05:54 05/17/18 09:02 05/17/18 05:00 Temperature -Last 24 Hours Temperature 98.4 F Temperature 97.9 F Temperature 97.9 F Temperature 97.7 F Temperature 97.9 F Temperature 97.7 F Temperature 98.6 F Results - Labs CBC & Chem 7: 05/17/18 07:02 05/17/18 09:29 Labs: Abnormal lab results 05/16/18 05/16/18 05/16/18 Range/Units 13:35 13:35 21:50 RBC 3.51 L (3.65-5.03) M/mm3 Hgb (11.8-15.2) gm/dl Hct 35.2 L (35.5-45.6) % MCV 100 H (84-94) fl MCH 34 H (28-32) pg RDW 15.3 H (13.2-15.2) % [place] % (Auto) 16.5 H (0.0-7.3) % Eos % (Auto) 4.6 H (0.0-4.3) % [place] # 0.9 H (0.0-0.8) K/mm3 Seg Neuts % (Manual) 73.0 H (40.0-70.0) % Monocytes % (Manual) 8.0 H (0.0-7.3) % Eosinophils % (Manual) 5.0 H (0.0-4.3) % Lymphocytes # (Manual) 0.8 L (1.2-5.4) K/mm3 Sodium 134 L (137-145) mmol/L Potassium 5.3 H D (3.6-5.0) mmol/L Chloride 89.5 L (98-107) mmol/L Carbon Dioxide 31 H D (22-30) mmol/L BUN 43 H (9-20) mg/dL Creatinine 8.6 H (0.8-1.5) mg/dL Glucose 111 H (75-100) mg/dL POC Glucose 119 H (70-105) 05/17/18 05/17/18 05/17/18 Range/Units 07:02 07:02 09:29 RBC 3.41 L (3.65-5.03) M/mm3 Hgb 11.3 L (11.8-15.2) gm/dl Hct 34.2 L (35.5-45.6) % MCV 100 H (84-94) fl MCH 33 H (28-32) pg RDW (13.2-15.2) % [place] % (Auto) (0.0-7.3) % Eos % (Auto) (0.0-4.3) % [place] # (0.0-0.8) K/mm3 Seg Neuts % (Manual) (40.0-70.0) % Monocytes % (Manual) 13.0 H (0.0-7.3) % Eosinophils % (Manual) 5.0 H (0.0-4.3) % Lymphocytes # (Manual) 1.1 L (1.2-5.4) K/mm3 Sodium 132 L 133 L (137-145) mmol/L Potassium 6.1 H* 5.7 H (3.6-5.0) mmol/L Chloride 90.5 L 89.3 L (98-107) mmol/L Carbon Dioxide 31 H (22-30) mmol/L BUN 58 H 59 H (9-20) mg/dL Creatinine 9.5 H 9.9 H (0.8-1.5) mg/dL Glucose 140 H (75-100) mg/dL POC Glucose (70-105) - Imaging and Cardiology Chest x-ray: report reviewed (Presumed right upper lobe and possible right basal pneumonia. ) Abdominal x-ray: report reviewed (No evidence of lower thoracic, abdomen and iliac arteries dissection.) CT scan - chest: report reviewed ( No acute lung changes. No pleural or pericardial effusion. ) CT Scan - head: report reviewed (no acute intracranial abnormality seen) MRI - head: report reviewed (Essentially negative MRA study of brain) Assessment and Plan Imaging Cultures: 05/13/2018 Blood: Stahylococcus Epidermidis, 4 out of 4 bottles 05/14/2018 Urine: 10-110K of mixed culture of greater than 2 organisms. 05/13/2018 MRSA PCR: negative 05/13/2018: Blood; no growth to date A/P: 63 -year old male with a past medical history of End-stage renal disease, on dialysis, Friday, Friday, Friday, hypertension, stroke, congestive heart fail ure, diabetes, seizure, Heart disease, stents that was brought to the ED on 05/13/18 for altered mental status and inability to ambulate upon waking from sleep. Now admitted with: 1. Staphlococcus Epidermidis Bacteremia: cultures grew 4 out of 4 bottles, grady sceptible to vancomycin. Source not clear. ESRD ON HD via left AVF. TTE showed a 2cm calcified lesion on the arterial surface of the posterior mitral leaflet which appears consistent with an old healed vegetation. STEVE ordered. No fevers or leukocytosis. Chest xray showed a presumed right upper lobe and possible right basal pneumonia, however chest CTA showed no acute lung changes. U/A was not consistent with a UTI. Urine cultures showed mixed culture of greater than 2 organisms. 2. ESRD on HD: via left AVF, MWF. Nephrology following. Antibiotics renally dosed. 3. Metabolic Encephalopathy: Better. Related to uremia. 4. Diabetes Type 2: uncontrolled. Recommend tight glycemic control. 5. CAD: : MPI completed on 01/2018 revealed small mildly reversible inferior wall defect consistent with RCA ischemia. Cardiac catheterization completed on that admission revealed Patent Cx and RCA stents, non-obstructive LAD disease, normal LVEF Plan -f/u blood cultures -STEVE ordered -Discontinue Vancomycin -Start Cefazolin 1 gm every 24 hours. [facility] M: [phone] O:[phone] -
--- NOTE | 2018-05-17 11:47 | Progress Note ---
Assessment and Plan Assessment and plan: Staph epidermidis bacteremia. Continue vancomycin per ID recommendations. STEVE per cardiology. Follow-up blood cultures. Hyperkalemia. Kayexalate 1. Recheck BMP later today. Hemodialysis in a.m. Peripheral neuropathy. No evidence of CVA. MRI revealed no evidence of acute ischemia or hemorrhage. Small vessel ischemic changes. Bilateral small chronic lacunar infarcts. Neurology following. Trial of Neurontin at 300 mg TID. PT/OT Metabolic encephalopathy. Patient with uremic encephalopathy resolving after hemodialysis. ESRD. Continue Friday inpatient hemodialysis schedule. Hyperkalemia. Patient received dialysis yesterday on a 2K dialysate bath. Please ensure that he is on a low potassium diet. Next session of dialysis will be set up for tomorrow. Anemia chronic disease. Monitor H&H and transfuse for hemoglobin less than 7. Accelerated hypertension. Resume antihypertensive medications. Diabetes mellitus type 2. Continue Accu-Cheks and sliding scale insulin. CAD. Patient with coronary artery disease status post multivessel PCI. MPI completed on 01/2018 revealed small mildly reversible inferior wall defect consistent with RCA ischemia. Cardiac catheterization completed on that admission revealed Patent Cx and RCA stents, non-obstructive LAD disease, normal LVEF Disposition. Await physical therapy recommendations for discharge. History Interval history: No new issues overnight. Patient with hyperkalemia potassium 6.1 this morning Hospitalist Physical - Constitutional Vitals: Temp Pulse Resp BP Pulse Ox 98.4 F 62 20 128/56 98 05/17/18 11:06 05/17/18 11:06 05/17/18 11:06 05/17/18 11:06 05/17/18 11:06 General appearance: Present: no acute distress - EENT Eyes: Present: PERRL, EOM intact ENT: hearing intact, clear oral mucosa, dentition normal - Neck Neck: Present: supple, normal ROM - Respiratory Respiratory effort: normal Respiratory: bilateral: CTA - Cardiovascular Rhythm: regular Heart Sounds: Present: S1 & S2. Absent: gallop, rub - Extremities Extremities: no ischemia, No edema, Full ROM - Abdominal General gastrointestinal: soft, non-tender, non-distended, normal bowel sounds - Integumentary Integumentary: Present: clear, warm, dry - Neurologic Neurologic: CNII-XII intact, moves all extremities Results - Labs CBC & Chem 7: 05/17/18 07:02 04/07/19 09:29 Labs: Laboratory Last Values WBC 5.4 K/mm3 (4.5-11.0) 05/17/18 07:02 RBC 3.41 M/mm3 (3.65-5.03) L 05/17/18 07:02 Hgb 11.3 gm/dl (11.8-15.2) L 05/17/18 07:02 Hct 34.2 % (35.5-45.6) L 05/17/18 07:02 MCV 100 fl (84-94) H 05/17/18 07:02 MCH 33 pg (28-32) H 05/17/18 07:02 MCHC 33 % (32-34) 05/17/18 07:02 RDW 15.1 % (13.2-15.2) 05/17/18 07:02 Plt Count 174 K/mm3 (140-440) 05/17/18 07:02 Lymph % (Auto) 16.7 % (13.4-35.0) 05/13/18 11:23 [place] % (Auto) Kennel Operator 05/17/18 07:02 Eos % (Auto) 4.6 % (0.0-4.3) H 05/16/18 13:35 Baso % (Auto) Kennel Operator 05/16/18 13:35 Lymph # 1.1 K/mm3 (1.2-5.4) L 05/13/18 11:23 [place] # 0.9 K/mm3 (0.0-0.8) H 05/16/18 13:35 Eos # 0.2 K/mm3 (0.0-0.4) 05/16/18 13:35 Baso # 0.1 K/mm3 (0.0-0.1) 05/16/18 13:35 Add Manual Diff Complete 05/17/18 07:02 Total Counted 100 05/17/18 07:02 Seg Neutrophils % 59.8 % (40.0-70.0) 05/16/18 13:35 Seg Neuts % (Manual) 59.0 % (40.0-70.0) 05/17/18 07:02 Band Neutrophils % 3.0 % 05/17/18 07:02 Lymphocytes % (Manual) 20.0 % (13.4-35.0) 05/17/18 07:02 Reactive Lymphs % (Man) 0 % 05/17/18 07:02 Monocytes % (Manual) 13.0 % (0.0-7.3) H 05/17/18 07:02 Eosinophils % (Manual) 5.0 % (0.0-4.3) H 05/17/18 07:02 Basophils % (Manual) 0 % (0.0-1.8) 05/17/18 07:02 Metamyelocytes % 0 % 05/17/18 07:02 Myelocytes % 0 % 05/17/18 07:02 Promyelocytes % 0 % 05/17/18 07:02 Blast Cells % 0 % 05/17/18 07:02 Nucleated RBC % Not Reportable 05/17/18 07:02 Seg Neutrophils # 3.1 K/mm3 (1.8-7.7) 05/16/18 13:35 Seg Neutrophils # Man 3.2 K/mm3 (1.8-7.7) 05/17/18 07:02 Band Neutrophils # 0.2 K/mm3 05/17/18 07:02 Lymphocytes # (Manual) 1.1 K/mm3 (1.2-5.4) L 05/17/18 07:02 Abs React Lymphs (Man) 0.0 K/mm3 05/17/18 07:02 Monocytes # (Manual) 0.7 K/mm3 (0.0-0.8) 05/17/18 07:02 Eosinophils # (Manual) 0.3 K/mm3 (0.0-0.4) 05/17/18 07:02 Basophils # (Manual) 0.0 K/mm3 (0.0-0.1) 05/17/18 07:02 Metamyelocytes # 0.0 K/mm3 05/17/18 07:02 Myelocytes # 0.0 K/mm3 05/17/18 07:02 Promyelocytes # 0.0 K/mm3 05/17/18 07:02 Blast Cells # 0.0 K/mm3 05/17/18 07:02 WBC Morphology Not Reportable 05/17/18 07:02 Hypersegmented Neuts Not Reportable 05/17/18 07:02 Hyposegmented Neuts Not Reportable 05/17/18 07:02 Hypogranular Neuts Not Reportable 05/17/18 07:02 Smudge Cells Not Reportable 05/17/18 07:02 Toxic Granulation Not Reportable 05/17/18 07:02 Toxic Vacuolation Not Reportable 05/17/18 07:02 Dohle Bodies Not Reportable 05/17/18 07:02 [place]-Huet Anomaly Not Reportable 05/17/18 07:02 Libby Rods Not Reportable 05/17/18 07:02 Platelet Estimate Consistent w auto 05/17/18 07:02 Clumped Platelets Not Reportable 05/17/18 07:02 Plt Clumps, EDTA Not Reportable 05/17/18 07:02 Large Platelets Not Reportable 05/17/18 07:02 Giant Platelets Not Reportable 05/17/18 07:02 Platelet Satelliting Not Reportable 05/17/18 07:02 Plt Morphology Comment Not Reportable 05/17/18 07:02 RBC Morphology Normal 05/17/18 07:02 Dimorphic RBCs Not Reportable 05/17/18 07:02 Polychromasia Not Reportable 05/17/18 07:02 Hypochromasia Not Reportable 05/17/18 07:02 Poikilocytosis Not Reportable 05/17/18 07:02 Anisocytosis Not Reportable 05/17/18 07:02 Microcytosis Not Reportable 05/17/18 07:02 Macrocytosis Not Reportable 05/17/18 07:02 Spherocytes Not Reportable 05/17/18 07:02 Pappenheimer Bodies Not Reportable 05/17/18 07:02 Sickle Cells Not Reportable 05/17/18 07:02 Target Cells Not Reportable 05/17/18 07:02 Tear Drop Cells Not Reportable 05/17/18 07:02 Ovalocytes Not Reportable 05/17/18 07:02 Helmet Cells Not Reportable 05/17/18 07:02 [place] Bodies Not Reportable 05/17/18 07:02 [place] Rings Not Reportable 05/17/18 07:02 [place] Cells Not Reportable 05/17/18 07:02 Bite Cells Not Reportable 05/17/18 07:02 Crenated Cell Not Reportable 05/17/18 07:02 Elliptocytes Not Reportable 05/17/18 07:02 Acanthocytes (Spur) Not Reportable 05/17/18 07:02 Rouleaux Not Reportable 05/17/18 07:02 Hemoglobin C Crystals Not Reportable 05/17/18 07:02 Schistocytes Not Reportable 05/17/18 07:02 Malaria parasites Not Reportable 05/17/18 07:02 Ted Bodies Not Reportable 05/17/18 07:02 Hem Pathologist Commnt No 05/17/18 07:02 PT 13.4 Sec. (12.2-14.9) 05/13/18 11:23 INR 0.96 (0.87-1.13) 05/13/18 11:23 APTT 30.3 Sec. (24.2-36.6) 05/13/18 11:23 Thrombin Time 17.8 Sec. (15.1-19.6) 05/13/18 11:23 Sodium 133 mmol/L (137-145) L 05/17/18 09:29 Potassium 5.7 mmol/L (3.6-5.0) H 05/17/18 09:29 Chloride 89.3 mmol/L (98-107) L 05/17/18 09:29 Carbon Dioxide 31 mmol/L (22-30) H 05/17/18 09:29 Anion Gap 18 mmol/L 05/17/18 09:29 BUN 59 mg/dL (9-20) H 05/17/18 09:29 Creatinine 9.9 mg/dL (0.8-1.5) H 05/17/18 09:29 Estimated GFR 6 ml/min 05/17/18 09:29 BUN/Creatinine Ratio 6 % 05/17/18 09:29 Glucose 140 mg/dL (75-100) H 05/17/18 09:29 POC Glucose 78 (70-105) 05/17/18 08:22 Lactic Acid 1.20 mmol/L (0.7-2.0) 05/13/18 13:08 Calcium 9.5 mg/dL (8.4-10.2) 05/17/18 09:29 Total Bilirubin 0.30 mg/dL (0.1-1.2) 05/13/18 11:23 AST 10 units/L (5-40) 05/13/18 11:23 ALT 8 units/L (7-56) 05/13/18 11:23 Alkaline Phosphatase 62 units/L (35-129) 05/13/18 11:23 Ammonia 45.0 umol/L (25-60) 05/13/18 11:47 Total Creatine Kinase 92 units/L (55-170) 05/13/18 11:23 CK-MB (CK-2) 2.9 ng/mL (0.0-4.0) 05/13/18 11:23 CK-MB (CK-2) Rel Index 3.1 (0-4) 05/13/18 11:23 Troponin T 0.042 ng/mL (0.00-0.029) H 05/13/18 11:23 NT-Pro-B Natriuret Pep 4257 pg/mL (0-900) H 05/13/18 13:08 Total Protein 7.0 g/dL (6.3-8.2) 05/13/18 11:23 Albumin 3.8 g/dL (3.9-5) L 05/13/18 11:23 Albumin/Globulin Ratio 1.2 % 05/13/18 11:23 Triglycerides 61 mg/dL (2-149) 05/13/18 11:23 Cholesterol 130 mg/dL (50-199) 05/13/18 11:23 LDL Cholesterol Direct 57 mg/dL (50-130) 05/13/18 11:23 HDL Cholesterol 68 mg/dL (40-59) H 05/13/18 11:23 Cholesterol/HDL Ratio 1.91 % 05/13/18 11:23 TSH 2.100 mlU/mL (0.270-4.200) 05/14/18 21:53 Urine Color Yellow (Yellow) 05/14/18 02:30 Urine Turbidity Clear (Clear) 05/14/18 02:30 Urine pH 8.0 (5.0-7.0) H 05/14/18 02:30 Ur Specific [place] 1.009 (1.003-1.030) 05/14/18 02:30 Urine Protein 100 mg/dl mg/dL (Negative) 05/14/18 02:30 Urine Glucose (UA) Neg mg/dL (Negative) 05/14/18 02:30 Urine Ketones Neg mg/dL (Negative) 05/14/18 02:30 Urine Blood Neg (Negative) 05/14/18 02:30 Urine Nitrite Neg (Negative) 05/14/18 02:30 Urine Bilirubin Neg (Negative) 05/14/18 02:30 Urine Urobilinogen < 2.0 mg/dL (<2.0) 05/14/18 02:30 Ur Leukocyte Esterase Neg (Negative) 05/14/18 02:30 Urine WBC (Auto) 1.0 /HPF (0.0-6.0) 05/14/18 02:30 Urine RBC (Auto) < 1.0 /HPF (0.0-6.0) 05/14/18 02:30 U Epithel Cells (Auto) < 1.0 /HPF (0-13.0) 05/14/18 02:30 Amorphous Crystals Few 05/14/18 02:30 Salicylates < 0.3 mg/dL (2.8-20.0) L 05/13/18 11:23 Acetaminophen < 5.0 ug/mL (10.0-30.0) L 05/13/18 11:23 Plasma/Serum Alcohol < 0.01 % (0-0.07) 05/13/18 11:23 Active Medications - Current Medications Current Medications: Generic Name Dose Route Start Last Admin Trade Name Freq PRN Reason Stop Dose Admin Acetaminophen 650 mg 05/13/18 14:08 Tylenol PO Q4H PRN Pain, Mild (1-3) Acetaminophen/Hydrocodone Bitart 1 each 05/14/18 03:16 05/17/18 05:54 [place] 5/325 PO 1 each Q6H PRN Administration Pain, Moderate (4-6) Aspirin 325 mg 05/14/18 10:00 05/17/18 09:33 Aspirin PO 325 mg QDAY GORDO Administration Atorvastatin Calcium 40 mg 05/14/18 22:00 05/16/18 21:47 Lipitor PO 40 mg QHS GORDO Administration Bisacodyl 10 mg 05/13/18 14:08 Dulcolax [place] QDAY PRN Constipation Gabapentin 300 mg 05/16/18 22:00 05/16/18 21:48 Neurontin PO 300 mg QHS GORDO Administration Heparin Sodium (Porcine) 5,000 unit 05/13/18 22:00 05/17/18 09:34 Heparin SUB-Q 5,000 unit Q12HR GORDO Administration Hydralazine HCl 10 mg 05/14/18 04:36 05/17/18 09:02 Apresoline IV 10 mg Q6HR PRN Administration Hypertension Hydroxyzine HCl 50 mg 05/14/18 08:00 05/17/18 08:59 Atarax PO 50 mg TID GORDO Administration Sodium Chloride 100 mls @ 999 mls/hr 05/15/18 10:43 Nacl 0.9% IV JEANINE PRN Hypotension Metoclopramide HCl 2.5 mg 05/14/18 06:48 Reglan PO Q6H PRN Nausea And Vomiting Multivit/Ca Carb/B Cmplx/FA/Prenat 1 cap 05/14/18 10:00 05/17/18 09:34 Renal Caps PO 1 cap QDAY GORDO Administration Ondansetron HCl 4 mg 05/13/18 14:08 Zofran IV Q8H PRN Nausea And Vomiting Pantoprazole Sodium 20 mg 05/14/18 10:00 05/17/18 09:33 Protonix PO 20 mg QDAY GORDO Administration Promethazine HCl 25 mg 05/13/18 14:08 Phenergan [place] Q6H PRN Nausea And Vomiting Sevelamer Carbonate 2,400 mg 05/14/18 08:00 05/17/18 08:59 Renvela PO 2,400 mg TIDWM GORDO Administration Sodium Chloride 10 ml 05/13/18 14:08 Sodium Chloride Flush Syringe 10 Ml IV PRN PRN LINE FLUSH Tramadol HCl 50 mg 05/16/18 14:57 Ultram PO Q12H PRN Pain Verapamil HCl 80 mg 05/14/18 14:00 05/17/18 05:54 Calan PO 80 mg Q8HR GORDO Administration
--- NOTE | 2018-05-17 15:12 | Progress Note ---
Assessment and Plan - Patient Problems (1) ESRD (end stage renal disease) Current Visit: Yes Status: Chronic Plan to address problem: Stable electrolytes and volume status now. Needs to adhere to Dialysis regimen (2) Gait abnormality Current Visit: Yes Status: Acute Plan to address problem: Patient with history of falls at home. Will benefit from home health with physical therapy or placement at subacute rehabilitation (3) Hyperkalemia Current Visit: Yes Status: Acute Plan to address problem: Potassium high today. Treat with Kayexalate and then hemodialysis first shift in the morning (4) Uremic encephalopathy Current Visit: Yes Status: Acute Plan to address problem: Secondary to missed dialysis. Improved (5) Hypertensive chronic kidney disease with stage 5 chronic kidney disease or end stage renal disease Current Visit: No Status: Chronic Plan to address problem: Follow-up blood pressure on current medications (6) Neuropathy Current Visit: No Status: Chronic Plan to address problem: Neuropathy probably secondary to type 2 diabetes mellitus. Decrease gabapentin to 300 mg at bedtime only given the advanced kidney disease Subjective Date of service: 05/17/18 Principal diagnosis: end-stage renal disease Interval history: Patient seen lying in bed. He feels better. Had been constipated but finally had a bowel movement today. Objective - Exam Narrative Exam: Middle-aged -[place] male lying in bed in no acute distress HEENT: NCAT, pink oral mucous membrane Neck: Supple, no venous distention CVS: S1S2 RRR with systolic murmur,No rub or gallop Chest: Diminished breath sounds bilaterally Abdomen: Distended, soft, nontender, no organomegaly, bowel sounds are present Extremities: No edema Neuro: Awake, alert no focal deficits - Vital Signs Vital signs: Vital Signs - 12hr 05/17/18 05/17/18 05/17/18 05:00 05:49 05:54 Temperature 97.9 F 97.9 F Pulse Rate 129 H Pulse Rate [ Apical] Pulse Rate [ Left Radial] Pulse Rate [ Right Radial] Respiratory 20 20 20 Rate Blood Pressure 161/85 Blood Pressure 161/85 [Left] O2 Sat by Pulse 99 Oximetry 05/17/18 05/17/18 05/17/18 09:02 10:00 11:06 Temperature 98.4 F Pulse Rate 129 H 62 Pulse Rate [ 129 H Apical] Pulse Rate [ 129 H Left Radial] Pulse Rate [ 129 H Right Radial] Respiratory 18 20 Rate Blood Pressure 165/95 128/56 Blood Pressure [Left] O2 Sat by Pulse 98 98 Oximetry 05/17/18 15:00 Temperature Pulse Rate 82 Pulse Rate [ Apical] Pulse Rate [ Left Radial] Pulse Rate [ Right Radial] Respiratory Rate Blood Pressure 138/83 Blood Pressure [Left] O2 Sat by Pulse Oximetry - Lab 05/17/18 07:02 05/17/18 09:29 Most recent lab results Calcium 9.5 mg/dL (8.4-10.2) 05/17/18 09:29 Medications & Allergies - Medications Allergies/Adverse Reactions: Allergies No Known Allergies Allergy (Verified 02/28/17 00:21) Home Medications: Home Medications Medication Instructions Recorded Confirmed Last Taken Type Rosuvastatin Calcium [Crestor] 20 mg PO QHS 07/03/17 05/13/18 1 Day Ago History ~03/10/18 Sevelamer Carbonate [Renvela] 2,400 mg PO TIDWM 07/03/17 05/13/18 1 Day Ago History ~03/10/18 Aspirin [Aspirin BABY CHEW TAB] 81 mg PO QDAY #30 tab.chew 07/05/17 05/13/18 1 Day Ago Rx ~03/10/18 B Complex 11/Folic/C/Biot/Zinc 1 each PO DAILY 02/13/18 05/13/18 1 Day Ago History [Dialyvite with Zinc Tablet] ~03/10/18 Ergocalciferol (Vitamin D2) 50,000 unit PO QWEEK 02/13/18 05/13/18 1 Day Ago His tory [Drisdol] ~03/10/18 Omeprazole 20 mg PO QDAY 02/13/18 05/13/18 1 Day Ago History ~03/10/18 ISOSORBIDE MONOnitrate [Imdur ER] 30 mg PO DAILY #30 tablet 02/14/18 05/13/18 1 Day Ago Rx ~03/10/18 Metoprolol [Lopressor TAB] 12.5 mg PO BID #30 tablet 02/14/18 05/13/18 1 Day Ago Rx ~03/10/18 Gabapentin [Neurontin] 100 mg PO BID #60 capsule 05/03/18 05/13/18 Unknown Rx Verapamil [Calan] 80 mg PO Q8HR #90 tablet 05/03/18 05/13/18 Unknown Rx Hydroxyzine HCl [hydrOXYzine] 50 mg PO TID 05/14/18 05/14/18 Unknown History traMADol [Ultram] 50 mg PO Q6HR PRN 05/14/18 05/14/18 Unknown History Active Medications: Generic Name Dose Route Start Last Admin Trade Name Freq PRN Reason Stop Dose Admin Acetaminophen 650 mg 05/13/18 14:08 Tylenol PO Q4H PRN Pain, Mild (1-3) Acetaminophen/Hydrocodone Bitart 1 each 05/14/18 03:16 05/17/18 05:54 [place] 5/325 PO 1 each Q6H PRN Administration Pain, Moderate (4-6) Aspirin 325 mg 05/14/18 10:00 05/17/18 09:33 Aspirin PO 325 mg QDAY GORDO Administration Atorvastatin Calcium 40 mg 05/14/18 22:00 05/16/18 21:47 Lipitor PO 40 mg QHS GORDO Administration Bisacodyl 10 mg 05/13/18 14:08 Dulcolax GA QDAY PRN Constipation Gabapentin 300 mg 05/16/18 22:00 05/16/18 21:48 Neurontin PO 300 mg QHS GORDO Administration Heparin Sodium (Porcine) 5,000 unit 05/13/18 22:00 05/17/18 09:34 Heparin SUB-Q 5,000 unit Q12HR GORDO Administration Hydralazine HCl 10 mg 05/14/18 04:36 05/17/18 09:02 Apresoline IV 10 mg Q6HR PRN Administration Hypertension Hydroxyzine HCl 50 mg 05/14/18 08:00 05/17/18 15:01 Atarax PO 50 mg TID GORDO Administration Sodium Chloride 100 mls @ 999 mls/hr 05/15/18 10:43 Nacl 0.9% IV JEANINE PRN Hypotension Metoclopramide HCl 2.5 mg 05/14/18 06:48 Reglan PO Q6H PRN Nausea And Vomiting Multivit/Ca Carb/B Cmplx/FA/Prenat 1 cap 05/14/18 10:00 05/17/18 09:34 Renal Caps PO 1 cap QDAY GORDO Administration Ondansetron HCl 4 mg 05/13/18 14:08 Zofran IV Q8H PRN Nausea And Vomiting Pantoprazole Sodium 20 mg 05/14/18 10:00 05/17/18 09:33 Protonix PO 20 mg QDAY GORDO Administration Promethazine HCl 25 mg 05/13/18 14:08 Phenergan GA Q6H PRN Nausea And Vomiting Sevelamer Carbonate 2,400 mg 05/14/18 08:00 05/17/18 12:50 Renvela PO 2,400 mg TIDWM GORDO Administration Sodium Chloride 10 ml 05/13/18 14:08 Sodium Chloride Flush Syringe 10 Ml IV PRN PRN LINE FLUSH Tramadol HCl 50 mg 05/16/18 14:57 Ultram PO Q12H PRN Pain Verapamil HCl 80 mg 05/14/18 14:00 05/17/18 15:00 Calan PO 80 mg Q8HR GORDO Administration
[2018-05-17] MEDS: HumuLIN R SUB-Q SCH ×2 (17:09→22:45)
[2018-05-17] MEDS: ANCEF/NS 1 GM/50 ML 1 GM/50 ML BAG IV SCH (17:40)
[2018-05-17 18:11] LABS: Calcium 9.2 mg/dL (8.4-10.2)
[2018-05-17] MEDS: NEURONTIN PO SCH (22:39)
[2018-05-18] MEDS: CALAN PO SCH ×3 (05:46→21:43)
[2018-05-18 06:45] LABS: Calcium 9.6 mg/dL (8.4-10.2)
[2018-05-18] MEDS: NORCO 5/325 PO PRN (06:58)
[2018-05-18] MEDS: ULTRAM PO PRN (08:05)
[2018-05-18] MEDS: ATARAX PO SCH ×3 (08:05→21:43)
[2018-05-18] MEDS: RENVELA PO SCH ×3 (08:05→18:02)
[2018-05-18] MEDS ORDERED: NACL 0.9% 100 ML IV PRN (08:55)
[2018-05-18] MEDS: Renal Caps PO SCH (10:24)
[2018-05-18] MEDS: ASPIRIN PO SCH (10:24)
[2018-05-18] MEDS: PROTONIX PO SCH (10:25)
[2018-05-18] MEDS: HumuLIN R SUB-Q SCH ×4 (10:25→22:27)
--- NOTE | 2018-05-18 10:25 | Progress Note ---
Assessment and Plan Assessment and plan: Staph epidermidis bacteremia. Continue Cefizox per ID recommendations. STEVE to evaluate for endocarditis per ID recommendations. Follow-up blood cultures. Headache. Consider CT scan of head if persists Hyperkalemia. Kayexalate 1. Recheck BMP later today. Hemodialysis in a.m. Peripheral neuropathy. No evidence of CVA. MRI revealed no evidence of acute ischemia or hemorrhage. Small vessel ischemic changes. Bilateral small chronic lacunar infarcts. Neurology following. Continue Trial of Neurontin at 300 mg TID. PT/OT Metabolic encephalopathy. Patient with uremic encephalopathy resolving after hemodialysis. ESRD. Continue Friday inpatient hemodialysis schedule. Hyperkalemia. Continue a low potassium diet. Dialysis per nephrology. Follow- up BMP Anemia chronic disease. Monitor H&H and transfuse for hemoglobin less than 7. Accelerated hypertension. Resume antihypertensive medications. Diabetes mellitus type 2. Continue Accu-Cheks and sliding scale insulin. CAD. Patient with coronary artery disease status post multivessel PCI. MPI completed on 01/2018 revealed small mildly reversible inferior wall defect consistent with RCA ischemia. Cardiac catheterization completed on that admission revealed Patent Cx and RCA stents, non-obstructive LAD disease, normal LVEF Disposition. Await physical therapy recommendations for discharge. History Interval history: No new issues overnight. Patient complains of headache this morning Hospitalist Physical - Constitutional Vitals: Temp Pulse Resp BP Pulse Ox 98.0 F 79 18 149/86 91 05/18/18 03:44 05/18/18 05:46 05/18/18 06:58 05/18/18 05:46 05/18/18 03:44 General appearance: Present: no acute distress - EENT Eyes: Present: PERRL, EOM intact ENT: hearing intact, clear oral mucosa, dentition normal - Neck Neck: Present: supple, normal ROM - Respiratory Respiratory effort: normal Respiratory: bilateral: CTA - Cardiovascular Rhythm: regular Heart Sounds: Present: S1 & S2. Absent: gallop, rub - Extremities Extremities: no ischemia, No edema, Full ROM - Abdominal General gastrointestinal: soft, non-tender, non-distended, normal bowel sounds - Integumentary Integumentary: Present: clear, warm, dry - Neurologic Neurologic: CNII-XII intact, moves all extremities Results - Labs CBC & Chem 7: 05/17/18 07:02 05/18/18 05:54 Labs: Laboratory Last Values WBC 5.4 K/mm3 (4.5-11.0) 05/17/18 07:02 RBC 3.41 M/mm3 (3.65-5.03) L 05/17/18 07:02 Hgb 11.3 gm/dl (11.8-15.2) L 05/17/18 07:02 Hct 34.2 % (35.5-45.6) L 05/17/18 07:02 MCV 100 fl (84-94) H 05/17/18 07:02 MCH 33 pg (28-32) H 05/17/18 07:02 MCHC 33 % (32-34) 05/17/18 07:02 RDW 15.1 % (13.2-15.2) 05/17/18 07:02 Plt Count 174 K/mm3 (140-440) 05/17/18 07:02 Lymph % (Auto) 16.7 % (13.4-35.0) 05/13/18 11:23 [place] % (Auto) [place] 05/17/18 07:02 Eos % (Auto) 4.6 % (0.0-4.3) H 05/16/18 13:35 Baso % (Auto) [place] 05/16/18 13:35 Lymph # 1.1 K/mm3 (1.2-5.4) L 05/13/18 11:23 [place] # 0.9 K/mm3 (0.0-0.8) H 05/16/18 13:35 Eos # 0.2 K/mm3 (0.0-0.4) 05/16/18 13:35 Baso # 0.1 K/mm3 (0.0-0.1) 05/16/18 13:35 Add Manual Diff Complete 05/17/18 07:02 Total Counted 100 05/17/18 07:02 Seg Neutrophils % 59.8 % (40.0-70.0) 05/16/18 13:35 Seg Neuts % (Manual) 59.0 % (40.0-70.0) 05/17/18 07:02 Band Neutrophils % 3.0 % 05/17/18 07:02 Lymphocytes % (Manual) 20.0 % (13.4-35.0) 05/17/18 07:02 Reactive Lymphs % (Man) 0 % 05/17/18 07:02 Monocytes % (Manual) 13.0 % (0.0-7.3) H 05/17/18 07:02 Eosinophils % (Manual) 5.0 % (0.0-4.3) H 05/17/18 07:02 Basophils % (Manual) 0 % (0.0-1.8) 05/17/18 07:02 Metamyelocytes % 0 % 05/17/18 07:02 Myelocytes % 0 % 05/17/18 07:02 Promyelocytes % 0 % 05/17/18 07:02 Blast Cells % 0 % 05/17/18 07:02 Nucleated RBC % Not Reportable 05/17/18 07:02 Seg Neutrophils # 3.1 K/mm3 (1.8-7.7) 05/16/18 13:35 Seg Neutrophils # Man 3.2 K/mm3 (1.8-7.7) 05/17/18 07:02 Band Neutrophils # 0.2 K/mm3 05/17/18 07:02 Lymphocytes # (Manual) 1.1 K/mm3 (1.2-5.4) L 05/17/18 07:02 Abs React Lymphs (Man) 0.0 K/mm3 05/17/18 07:02 Monocytes # (Manual) 0.7 K/mm3 (0.0-0.8) 05/17/18 07:02 Eosinophils # (Manual) 0.3 K/mm3 (0.0-0.4) 05/17/18 07:02 Basophils # (Manual) 0.0 K/mm3 (0.0-0.1) 05/17/18 07:02 Metamyelocytes # 0.0 K/mm3 05/17/18 07:02 Myelocytes # 0.0 K/mm3 05/17/18 07:02 Promyelocytes # 0.0 K/mm3 05/17/18 07:02 Blast Cells # 0.0 K/mm3 05/17/18 07:02 WBC Morphology Not Reportable 05/17/18 07:02 Hypersegmented Neuts Not Reportable 05/17/18 07:02 Hyposegmented Neuts Not Reportable 05/17/18 07:02 Hypogranular Neuts Not Reportable 05/17/18 07:02 Smudge Cells Not Reportable 05/17/18 07:02 Toxic Granulation Not Reportable 05/17/18 07:02 Toxic Vacuolation Not Reportable 05/17/18 07:02 Dohle Bodies Not Reportable 05/17/18 07:02 Pelger-Huet Anomaly Not Reportable 05/17/18 07:02 Libby Rods Not Reportable 05/17/18 07:02 Platelet Estimate Consistent w auto 05/17/18 07:02 Clumped Platelets Not Reportable 05/17/18 07:02 Plt Clumps, EDTA Not Reportable 05/17/18 07:02 Large Platelets Not Reportable 05/17/18 07:02 Giant Platelets Not Reportable 05/17/18 07:02 Platelet Satelliting Not Reportable 05/17/18 07:02 Plt Morphology Comment Not Reportable 05/17/18 07:02 RBC Morphology Normal 05/17/18 07:02 Dimorphic RBCs Not Reportable 05/17/18 07:02 Polychromasia Not Reportable 05/17/18 07:02 Hypochromasia Not Reportable 05/17/18 07:02 Poikilocytosis Not Reportable 05/17/18 07:02 Anisocytosis Not Reportable 05/17/18 07:02 Microcytosis Not Reportable 05/17/18 07:02 Macrocytosis Not Reportable 05/17/18 07:02 Spherocytes Not Reportable 05/17/18 07:02 Pappenheimer Bodies Not Reportable 05/17/18 07:02 Sickle Cells Not Reportable 05/17/18 07:02 Target Cells Not Reportable 05/17/18 07:02 Tear Drop Cells Not Reportable 05/17/18 07:02 Ovalocytes Not Reportable 05/17/18 07:02 Helmet Cells Not Reportable 05/17/18 07:02 [place] Bodies Not Reportable 05/17/18 07:02 [place] Rings Not Reportable 05/17/18 07:02 Arjun Cells Not Reportable 05/17/18 07:02 Bite Cells Not Reportable 05/17/18 07:02 Crenated Cell Not Reportable 05/17/18 07:02 Elliptocytes Not Reportable 05/17/18 07:02 Acanthocytes (Spur) Not Reportable 05/17/18 07:02 Rouleaux Not Reportable 05/17/18 07:02 Hemoglobin C Crystals Not Reportable 05/17/18 07:02 Schistocytes Not Reportable 05/17/18 07:02 Malaria parasites Not Reportable 05/17/18 07:02 Ted Bodies Not Reportable 05/17/18 07:02 Hem Pathologist Commnt No 05/17/18 07:02 PT 13.4 Sec. (12.2-14.9) 05/13/18 11:23 INR 0.96 (0.87-1.13) 05/13/18 11:23 APTT 30.3 Sec. (24.2-36.6) 05/13/18 11:23 Thrombin Time 17.8 Sec. (15.1-19.6) 05/13/18 11:23 Sodium 136 mmol/L (137-145) L 05/18/18 05:54 Potassium 5.9 mmol/L (3.6-5.0) H 05/18/18 05:54 Chloride 91.5 mmol/L (98-107) L 05/18/18 05:54 Carbon Dioxide 28 mmol/L (22-30) 05/18/18 05:54 Anion Gap 22 mmol/L 05/18/18 05:54 BUN 73 mg/dL (9-20) H 05/18/18 05:54 Creatinine 11.6 mg/dL (0.8-1.5) H 05/18/18 05:54 Estimated GFR 5 ml/min 05/18/18 05:54 BUN/Creatinine Ratio 6 % 05/18/18 05:54 Glucose 100 mg/dL (75-100) 05/18/18 05:54 POC Glucose 98 (70-105) 05/17/18 21:22 Lactic Acid 1.20 mmol/L (0.7-2.0) 05/13/18 13:08 Calcium 9.6 mg/dL (8.4-10.2) 05/18/18 05:54 Total Bilirubin 0.30 mg/dL (0.1-1.2) 05/13/18 11:23 AST 10 units/L (5-40) 05/13/18 11:23 ALT 8 units/L (7-56) 05/13/18 11:23 Alkaline Phosphatase 62 units/L (35-129) 05/13/18 11:23 Ammonia 45.0 umol/L (25-60) 05/13/18 11:47 Total Creatine Kinase 92 units/L (55-170) 05/13/18 11:23 CK-MB (CK-2) 2.9 ng/mL (0.0-4.0) 05/13/18 11:23 CK-MB (CK-2) Rel Index 3.1 (0-4) 05/13/18 11:23 Troponin T 0.042 ng/mL (0.00-0.029) H 05/13/18 11:23 NT-Pro-B Natriuret Pep 4257 pg/mL (0-900) H 05/13/18 13:08 Total Protein 7.0 g/dL (6.3-8.2) 05/13/18 11:23 Albumin 3.8 g/dL (3.9-5) L 05/13/18 11:23 Albumin/Globulin Ratio 1.2 % 05/13/18 11:23 Triglycerides 61 mg/dL (2-149) 05/13/18 11:23 Cholesterol 130 mg/dL (50-199) 05/13/18 11:23 LDL Cholesterol Direct 57 mg/dL (50-130) 05/13/18 11:23 HDL Cholesterol 68 mg/dL (40-59) H 05/13/18 11:23 Cholesterol/HDL Ratio 1.91 % 05/13/18 11:23 TSH 2.100 mlU/mL (0.270-4.200) 05/14/18 21:53 Urine Color Yellow (Yellow) 05/14/18 02:30 Urine Turbidity Clear (Clear) 05/14/18 02:30 Urine pH 8.0 (5.0-7.0) H 05/14/18 02:30 Ur Specific [place] 1.009 (1.003-1.030) 05/14/18 02:30 Urine Protein 100 mg/dl mg/dL (Negative) 05/14/18 02:30 Urine Glucose (UA) Neg mg/dL (Negative) 05/14/18 02:30 Urine Ketones Neg mg/dL (Negative) 05/14/18 02:30 Urine Blood Neg (Negative) 05/14/18 02:30 Urine Nitrite Neg (Negative) 05/14/18 02:30 Urine Bilirubin Neg (Negative) 05/14/18 02:30 Urine Urobilinogen < 2.0 mg/dL (<2.0) 05/14/18 02:30 Ur Leukocyte Esterase Neg (Negative) 05/14/18 02:30 Urine WBC (Auto) 1.0 /HPF (0.0-6.0) 05/14/18 02:30 Urine RBC (Auto) < 1.0 /HPF (0.0-6.0) 05/14/18 02:30 U Epithel Cells (Auto) < 1.0 /HPF (0-13.0) 05/14/18 02:30 Amorphous Crystals Few 05/14/18 02:30 Salicylates < 0.3 mg/dL (2.8-20.0) L 05/13/18 11:23 Acetaminophen < 5.0 ug/mL (10.0-30.0) L 05/13/18 11:23 Plasma/Serum Alcohol < 0.01 % (0-0.07) 05/13/18 11:23 Active Medications - Current Medications Current Medications: Generic Name Dose Route Start Last Admin Trade Name Freq PRN Reason Stop Dose Admin Acetaminophen 650 mg 05/13/18 14:08 Tylenol PO Q4H PRN Pain, Mild (1-3) Acetaminophen/Hydrocodone Bitart 1 each 05/14/18 03:16 05/18/18 06:58 [place] 5/325 PO 1 each Q6H PRN Administration Pain, Moderate (4-6) Aspirin 325 mg 05/14/18 10:00 05/17/18 09:33 Aspirin PO 325 mg QDAY GORDO Administration Atorvastatin Calcium 40 mg 05/14/18 22:00 05/17/18 22:39 Lipitor PO 40 mg QHS GORDO Administration Bisacodyl 10 mg 05/13/18 14:08 Dulcolax HI QDAY PRN Constipation Gabapentin 300 mg 05/16/18 22:00 05/17/18 22:39 Neurontin PO 300 mg QHS GORDO Administration Heparin Sodium (Porcine) 5,000 unit 05/13/18 22:00 05/17/18 22:38 Heparin SUB-Q 5,000 unit Q12HR GORDO Administration Hydralazine HCl 10 mg 05/14/18 04:36 05/17/18 09:02 Apresoline IV 10 mg Q6HR PRN Administration Hypertension Hydroxyzine HCl 50 mg 05/14/18 08:00 05/18/18 08:05 Atarax PO 50 mg TID GORDO Administration Cefazolin Sodium 1 gm in 50 mls @ 100 mls/hr 05/17/18 18:00 Ancef/Ns 1 Gm/50 Ml IV QPM GORDO Protocol Sodium Chloride 100 mls @ 999 mls/hr 05/18/18 08:55 Nacl 0.9% IV JEANINE PRN Hypotension Insulin Human Regular 0 units 05/17/18 17:00 05/17/18 22:45 Humulin R SUB-Q Not Given ACHS [facility] Protocol Metoclopramide HCl 2.5 mg 05/14/18 06:48 Reglan PO Q6H PRN Nausea And Vomiting Multivit/Ca Carb/B Cmplx/FA/Prenat 1 cap 05/14/18 10:00 05/17/18 09:34 Renal Caps PO 1 cap QDAY GORDO Administration Ondansetron HCl 4 mg 05/13/18 14:08 Zofran IV Q8H PRN Nausea And Vomiting Pantoprazole Sodium 20 mg 05/14/18 10:00 05/17/18 09:33 Protonix PO 20 mg QDAY GORDO Administration Promethazine HCl 25 mg 05/13/18 14:08 Phenergan HI Q6H PRN Nausea And Vomiting Sevelamer Carbonate 2,400 mg 05/14/18 08:00 05/18/18 08:05 Renvela PO 2,400 mg TIDWM GORDO Administration Sodium Chloride 10 ml 05/13/18 14:08 Sodium Chloride Flush Syringe 10 Ml IV PRN PRN LINE FLUSH Tramadol HCl 50 mg 05/16/18 14:57 05/18/18 08:05 Ultram PO 50 mg Q12H PRN Administration Pain Verapamil HCl 80 mg 05/14/18 14:00 05/18/18 05:46 Calan PO 80 mg Q8HR GORDO Administration
[2018-05-18] MEDS: HEPARIN SUB-Q SCH ×2 (10:26→21:44)
[2018-05-18] MEDS: ANCEF/NS 1 GM/50 ML 1 GM/50 ML BAG IV SCH ×3 (10:30→21:10)
--- NOTE | 2018-05-18 11:24 | Progress Note ---
Assessment and Plan - Patient Problems (1) ESRD (end stage renal disease) Current Visit: Yes Status: Chronic Plan to address problem: cont HD on MWF schedule (2) Gait abnormality Current Visit: Yes Status: Acute Plan to address problem: Patient with history of falls at home. Will benefit from home health with physical therapy or placement at subacute rehabilitation (3) Hyperkalemia Current Visit: Yes Status: Acute Plan to address problem: K remains elevated despite treatment with kayexalate, HD today using 2k bath (4) Uremic encephalopathy Current Visit: Yes Status: Acute Plan to address problem: Secondary to missed dialysis. Improved (5) HTN (hypertension) Current Visit: No Status: Chronic Plan to address problem: Follow-up blood pressure on current medications (6) Neuropathy Current Visit: No Status: Chronic Plan to address problem: Neuropathy probably secondary to type 2 diabetes mellitus. Decreased gabapentin to 300 mg at bedtime only given the advanced kidney disease Subjective Date of service: 05/18/18 Principal diagnosis: end-stage renal disease Interval history: pt awake, alert, in NAD Objective - Vital Signs Vital signs: Vital Signs - 12hr 05/17/18 05/18/18 05/18/18 23:50 03:44 05:46 Temperature 98.3 F 98.0 F Pulse Rate 86 79 79 Respiratory 20 20 Rate Blood Pressure 160/84 149/86 149/86 O2 Sat by Pulse 94 91 Oximetry 05/18/18 06:58 Temperature Pulse Rate Respiratory 18 Rate Blood Pressure O2 Sat by Pulse Oximetry - General Appearance General appearance: well-developed, well-nourished, appears stated age EENT: ATNC, PERRL, mucous membranes moist Neck: no JVD Respiratory: Present: Clear to Ascultation Cardiology: regular, S1S2 Gastrointestinal: normoactive bowel sounds Integumentary: no rash, other (no edema ) Neurologic: no focal deficit, alert and oriented x3, strength 5/5, CN 3-12 intact Psychiatric: mood/affect appropriate, cooperative - Lab 05/17/18 07:02 05/18/18 05:54 Most recent lab results Calcium 9.6 mg/dL (8.4-10.2) 05/18/18 05:54 Medications & Allergies - Medications Allergies/Adverse Reactions: Allergies No Known Allergies Allergy (Verified 02/28/17 00:21) Home Medications: Home Medications Medication Instructions Recorded Confirmed Last Taken Type Rosuvastatin Calcium [Crestor] 20 mg PO QHS 07/03/17 05/13/18 1 Day Ago History ~03/10/18 Sevelamer Carbonate [Renvela] 2,400 mg PO TIDWM 07/03/17 05/13/18 1 Day Ago History ~03/10/18 Aspirin [Aspirin BABY CHEW TAB] 81 mg PO QDAY #30 tab.chew 07/05/17 05/13/18 1 Day Ago Rx ~03/10/18 B Complex 11/Folic/C/Biot/Zinc 1 each PO DAILY 02/13/18 05/13/18 1 Day Ago History [Dialyvite with Zinc Tablet] ~03/10/18 Ergocalciferol (Vitamin D2) 50,000 unit PO QWEEK 02/13/18 05/13/18 1 Day Ago History [Drisdol] ~03/10/18 Omeprazole 20 mg PO QDAY 02/13/18 05/13/18 1 Day Ago History ~03/10/18 ISOSORBIDE MONOnitrate [Imdur ER] 30 mg PO DAILY #30 tablet 02/14/18 05/13/18 1 Day Ago Rx ~03/10/18 Metoprolol [Lopressor TAB] 12.5 mg PO BID #30 tablet 02/14/18 05/13/18 1 Day Ago Rx ~03/10/18 Gabapentin [Neurontin] 100 mg PO BID #60 capsule 05/03/18 05/13/18 Unknown Rx Verapamil [Calan] 80 mg PO Q8HR #90 tablet 05/03/18 05/13/18 Unknown Rx Hydroxyzine HCl [hydrOXYzine] 50 mg PO TID 05/14/18 05/14/18 Unknown History traMADol [Ultram] 50 mg PO Q6HR PRN 05/14/18 05/14/18 Unknown History Active Medications: Generic Name Dose Route Start Last Admin Trade Name Freq PRN Reason Stop Dose Admin Acetaminophen 650 mg 05/13/18 14:08 Tylenol PO Q4H PRN Pain, Mild (1-3) Acetaminophen/Hydrocodone Bitart 1 each 05/14/18 03:16 05/18/18 06:58 [place] 5/325 PO 1 each Q6H PRN Administration Pain, Moderate (4-6) Aspirin 325 mg 05/14/18 10:00 05/18/18 10:24 Aspirin PO 325 mg QDAY GORDO Administration Atorvastatin Calcium 40 mg 05/14/18 22:00 05/17/18 22:39 Lipitor PO 40 mg QHS GORDO Administration Bisacodyl 10 mg 05/13/18 14:08 Dulcolax MD QDAY PRN Constipation Gabapentin 300 mg 05/16/18 22:00 05/17/18 22:39 Neurontin PO 300 mg QHS GORDO Administration Heparin Sodium (Porcine) 5,000 unit 05/13/18 22:00 05/18/18 10:26 Heparin SUB-Q 5,000 unit Q12HR GORDO Administration Hydralazine HCl 10 mg 05/14/18 04:36 05/17/18 09:02 Apresoline IV 10 mg Q6HR PRN Administration Hypertension Hydroxyzine HCl 50 mg 05/14/18 08:00 05/18/18 08:05 Atarax PO 50 mg TID GORDO Administration Cefazolin Sodium 1 gm in 50 mls @ 100 mls/hr 05/17/18 18:00 05/18/18 10:32 Ancef/Ns 1 Gm/50 Ml IV 100 mls/hr QPM GORDO Administration Protocol Sodium Chloride 100 mls @ 999 mls/hr 05/18/18 08:55 Nacl 0.9% IV JEANINE PRN Hypotension Insulin Human Regular 0 units 05/17/18 17:00 05/18/18 10:25 Humulin R SUB-Q Not Given ACHS [facility] Protocol Metoclopramide HCl 2.5 mg 05/14/18 06:48 Reglan PO Q6H PRN Nausea And Vomiting Multivit/Ca Carb/B Cmplx/FA/Prenat 1 cap 05/14/18 10:00 05/18/18 10:24 Renal Caps PO 1 cap QDAY [facility] Administration Ondansetron HCl 4 mg 05/13/18 14:08 Zofran IV Q8H PRN Nausea And Vomiting Pantoprazole Sodium 20 mg 05/14/18 10:00 05/18/18 10:25 Protonix PO 20 mg QDAY GORDO Administration Promethazine HCl 25 mg 05/13/18 14:08 Phenergan MD Q6H PRN Nausea And Vomiting Sevelamer Carbonate 2,400 mg 05/14/18 08:00 05/18/18 08:05 Renvela PO 2,400 mg TIDWM GORDO Administration Sodium Chloride 10 ml 05/13/18 14:08 Sodium Chloride Flush Syringe 10 Ml IV PRN PRN LINE FLUSH Tramadol HCl 50 mg 05/16/18 14:57 05/18/18 08:05 Ultram PO 50 mg Q12H PRN Administration Pain Verapamil HCl 80 mg 05/14/18 14:00 05/18/18 05:46 Calan PO 80 mg Q8HR GORDO Administration
--- NOTE | 2018-05-18 11:33 | Progress Note ---
Assessment and Plan Imaging Cultures: 05/13/2018 Blood: CoNS, 4 out of 4 bottles 05/14/2018 Urine: 10-110K of mixed culture of greater than 2 organisms. 05/13/2018 MRSA PCR: negative 05/13/2018: Blood; no growth to date A/P: 63 -year old male with a past medical history of End-stage renal disease, on dialysis, Friday, Friday, Friday, hypertension, stroke, congestive heart failure, diabetes, seizure, Heart disease, stents that was brought to the ED on 05/13/18 for altered mental status and inability to ambulate upon waking from sleep. Now admitted with: 1. CoNS Bacteremia: cultures grew 4 out of 4 bottles, repeat cultures show no growth to date. Source not clear. ESRD ON HD via left AVF. TTE showed a 2cm calcified lesion on the arterial surface of the posterior mitral leaflet which appears consistent with an old healed vegetation. STEVE ordered. No fevers or leukocytosis. Chest xray showed a presumed right upper lobe and possible right basal pneumonia, however chest CTA showed no acute lung changes. U/A was not consistent with a UTI. Urine cultures showed mixed culture of greater than 2 organisms. 2. ESRD on HD: via left AVF, MWF. Nephrology following. Antibiotics renally dosed. 3. Metabolic Encephalopathy: Better. Related to uremia. 4. Diabetes Type 2: uncontrolled. Recommend tight glycemic control. 5. CAD: : MPI completed on 01/2018 revealed small mildly reversible inferior wall defect consistent with RCA ischemia. Cardiac catheterization completed on that admission revealed Patent Cx and RCA stents, non-obstructive LAD disease, normal LVEF Plan -f/u blood cultures -f/u STEVE -continue Cefazolin 1 gm every 24 hours, D2 Rosa Cardoza NP [facility] M: [phone] O:[phone] - Subjective Date of service: 05/18/18 Principal diagnosis: end-stage renal disease Interval history: Patient seen and examined. Denies generalized pain , no fever. + SOB when ambulating to the bathroom. No family at bedside. Objective - Exam Narrative Exam: Constitutional: Alert, cooperative. No acute distress Head, Ears, Nose: Normocephalic, atraumatic. External ears, nose normal Eyes: Conjunctivae/corneas clear. No icterus. No ptosis. Neck: Supple, no meningeal signs Oral: dentition fair, no thrush Cardiovascular: S1, S2 normal. Respiratory: Good air entry, clear to auscultation bilaterally, + sob when ambulating to the bathroom. GI: Soft, non-tender; bowel sounds normal. No peritoneal signs Musculoskeletal: No pedal edema, no cyanosis., + Left AVF Skin: No rash or abscess. Hem/Lymphatic: No palpable cervical or supraclavicular nodes. No lymphangitis Psych: Mood ok. Affect normal Neurological: Awake, alert, oriented. - Constitutional Vitals: Vital Signs Temp Pulse Resp BP Pulse Ox 98.0 F 79 18 149/86 91 05/18/18 03:44 05/18/18 05:46 05/18/18 06:58 05/18/18 05:46 05/18/18 03:44 Temperature -Last 24 Hours Temperature 98.0 F Temperature 98.3 F Temperature 97.8 F Temperature 97.9 F - Labs CBC & Chem 7: 05/17/18 07:02 05/18/18 05:54 Labs: Abnormal lab results 05/17/18 05/17/18 05/17/18 Range/Units 16:09 17:34 18:52 Sodium 135 L (137-145) mmol/L Potassium 5.1 H (3.6-5.0) mmol/L Chloride 90.7 L (98-107) mmol/L BUN 62 H (9-20) mg/dL Creatinine 10.2 H (0.8-1.5) mg/dL Glucose 101 H (75-100) mg/dL POC Glucose 328 H 59 L (70-105) 05/18/18 Range/Units 05:54 Sodium 136 L (137-145) mmol/L Potassium 5.9 H (3.6-5.0) mmol/L Chloride 91.5 L (98-107) mmol/L BUN 73 H (9-20) mg/dL Creatinine 11.6 H (0.8-1.5) mg/dL Glucose (75-100) mg/dL POC Glucose (70-105)
[2018-05-18] MEDS ORDERED: NACL 0.9 (PRIMING MACHINE ONLY DIALYSIS) MC ONE (18:57)
[2018-05-18] MEDS: NEURONTIN PO SCH (21:43)
[2018-05-19] MEDS: CALAN PO SCH ×3 (05:51→21:42)
[2018-05-19 06:21] LABS: Basophils % (Auto) 0.7 % (0.0-1.8); Eosinophils # (Auto) 0.2 K/mm3 (0.0-0.4); Hematocrit 33.1 % (35.5-45.6); Lymphocytes # (Auto) 0.9 K/mm3 (1.2-5.4); Lymphocytes % (Auto) 22.5 % (13.4-35.0); Mean Corpuscular HGB Conc 33 % (32-34); Mean Corpuscular Volume 99 fl (84-94); Monocytes # (Auto) 0.6 K/mm3 (0.0-0.8); Monocytes % (Auto) 14.6 % (0.0-7.3); Platelet Count 169 K/mm3 (140-440); Red Blood Count 3.33 M/mm3 (3.65-5.03); Red Cell Distribution Width 15.2 % (13.2-15.2)
[2018-05-19 06:41] LABS: Calcium 9.1 mg/dL (8.4-10.2)
[2018-05-19] MEDS: ULTRAM PO PRN ×2 (08:39→14:37)
[2018-05-19] MEDS: RENVELA PO SCH ×3 (08:39→17:13)
[2018-05-19] MEDS: ATARAX PO SCH ×3 (08:39→21:41)
[2018-05-19] MEDS: HumuLIN R SUB-Q SCH ×4 (08:42→22:49)
[2018-05-19] MEDS: PROTONIX PO SCH (09:25)
[2018-05-19] MEDS: Renal Caps PO SCH (09:25)
[2018-05-19] MEDS: ASPIRIN PO SCH (09:25)
[2018-05-19] MEDS: ANCEF/NS 1 GM/50 ML 1 GM/50 ML BAG IV SCH (09:25)
[2018-05-19] MEDS: HEPARIN SUB-Q SCH ×2 (09:26→21:44)
--- NOTE | 2018-05-19 10:16 | Progress Note ---
Assessment and Plan Imaging Cultures: 05/13/2018 Blood: CoNS, 4 out of 4 bottles 05/14/2018 Urine: 10-110K of mixed culture of greater than 2 organisms. 05/13/2018 MRSA PCR: negative 05/13/2018: Blood; no growth to date A/P: 63 -year old male with a past medical history of End-stage renal disease, on dialysis, Friday, Friday, Friday, hypertension, stroke, congestive heart failure, diabetes, seizure, Heart disease, stents that was brought to the ED on 05/13/18 for altered mental status and inability to ambulate upon waking from sleep. Now admitted with: 1. CoNS Bacteremia: cultures grew 4 out of 4 bottles, repeat cultures show no growth to date. Source not clear. ESRD ON HD via left AVF. TTE showed a 2cm calcified lesion on the arterial surface of the posterior mitral leaflet which appears consistent with an old healed vegetation. STEVE ordered. No fevers or leukocytosis. Chest xray showed a presumed right upper lobe and possible right basal pneumonia, however chest CTA showed no acute lung changes. U/A was not consistent with a UTI. Urine cultures showed mixed culture of greater than 2 organisms. 2. ESRD on HD: via left AVF, MWF. Nephrology following. Antibiotics renally dosed. 3. Metabolic Encephalopathy: Better. Related to uremia. 4. Diabetes Type 2: uncontrolled. Recommend tight glycemic control. 5. CAD: : MPI completed on 01/2018 revealed small mildly reversible inferior wall defect consistent with RCA ischemia. Cardiac catheterization completed on that admission revealed Patent Cx and RCA stents, non-obstructive LAD disease, normal LVEF Plan -f/u blood cultures -f/u STEVE - scheduled for tomorrow -continue Cefazolin 1 gm every 24 hours, D3 Rosa Cardoza NP [facility] M: [phone] O:[phone] - Subjective Date of service: 05/19/18 Principal diagnosis: end-stage renal disease Interval history: Patient seen and examined. Denies generalized pain , no fever. States that he is doing better today. Family at bedside. Objective - Exam Narrative Exam: Constitutional: Alert, cooperative. No acute distress Head, Ears, Nose: Normocephalic, atraumatic. External ears, nose normal Eyes: Conjunctivae/corneas clear. No icterus. No ptosis. Neck: Supple, no meningeal signs Oral: dentition fair, no thrush Cardiovascular: S1, S2 normal. Respiratory: Good air entry, clear to auscultation bilaterally, + sob when ambulating to the bathroom. GI: Soft, non-tender; bowel sounds normal. No peritoneal signs Musculoskeletal: No pedal edema, no cyanosis., + Left AVF Skin: No rash or abscess. Hem/Lymphatic: No palpable cervical or supraclavicular nodes. No lymphangitis Psych: Mood ok. Affect normal Neurological: Awake, alert, oriented. - Constitutional Vitals: Vital Signs Temp Pulse Resp BP Pulse Ox 98.6 F 70 18 126/67 96 05/19/18 08:47 05/19/18 08:47 05/19/18 08:47 05/19/18 08:47 05/19/18 08:47 Temperature -Last 24 Hours Temperature 98.6 F Temperature 98.3 F Temperature 98.4 F Temperature 98.3 F Temperature 98.0 F Temperature 98.0 F Temperature 98.4 F - Labs CBC & Chem 7: 05/19/18 05:44 05/19/18 05:44 Labs: Abnormal lab results 05/19/18 05/19/18 Range/Units 05:44 05:44 WBC 4.2 L (4.5-11.0) K/mm3 RBC 3.33 L (3.65-5.03) M/mm3 Hgb 11.0 L (11.8-15.2) gm/dl Hct 33.1 L (35.5-45.6) % MCV 99 H (84-94) fl MCH 33 H (28-32) pg Perkins % (Auto) 14.6 H (0.0-7.3) % Eos % (Auto) 6.0 H (0.0-4.3) % Lymph # 0.9 L (1.2-5.4) K/mm3 Potassium 5.3 H (3.6-5.0) mmol/L Chloride 95.9 L (98-107) mmol/L BUN 38 H (9-20) mg/dL Creatinine 7.1 H (0.8-1.5) mg/dL
--- NOTE | 2018-05-19 10:58 | Progress Note ---
Assessment and Plan - Patient Problems (1) ESRD (end stage renal disease) Current Visit: Yes Status: Chronic Plan to address problem: cont HD on MWF schedule (2) Gait abnormality Current Visit: Yes Status: Acute Plan to address problem: Patient with history of falls at home. Will benefit from home health with physical therapy or placement at subacute rehabilitation (3) Hyperkalemia Current Visit: Yes Status: Acute Plan to address problem: K improved s/p HD. cont 2g K renal diet (4) Uremic encephalopathy Current Visit: Yes Status: Acute Plan to address problem: Secondary to missed dialysis. Improved (5) HTN (hypertension) Current Visit: No Status: Chronic Plan to address problem: Follow-up blood pressure on current medications (6) Neuropathy Current Visit: No Status: Chronic Plan to address problem: Neuropathy probably secondary to type 2 diabetes mellitus. Decreased gabapentin to 300 mg at bedtime only given the advanced kidney disease Subjective Date of service: 05/19/18 Principal diagnosis: end-stage renal disease Interval history: pt awake, alert, in NAD Objective - Vital Signs Vital signs: Vital Signs - 12hr 05/19/18 05/19/18 05/19/18 00:28 05:17 05:51 Temperature 98.4 F 98.3 F Pulse Rate 73 82 82 Respiratory 18 17 Rate Blood Pressure 136/78 139/87 139/87 O2 Sat by Pulse 95 93 Oximetry 05/19/18 08:47 Temperature 98.6 F Pulse Rate 70 Respiratory 18 Rate Blood Pressure 126/67 O2 Sat by Pulse 96 Oximetry - General Appearance General appearance: well-developed, well-nourished, appears stated age EENT: ATNC, PERRL, mucous membranes moist Neck: no JVD Respiratory: Present: Clear to Ascultation Cardiology: regular, S1S2 Gastrointestinal: normoactive bowel sounds Integumentary: no rash, other (no edema ) Neurologic: no focal deficit, alert and oriented x3, strength 5/5, CN 3-12 intact Psychiatric: mood/affect appropriate, cooperative - Lab 05/19/18 05:44 05/19/18 05:44 Most recent lab results Calcium 9.1 mg/dL (8.4-10.2) 05/19/18 05:44 Medications & Allergies - Medications Allergies/Adverse Reactions: Allergies No Known Allergies Allergy (Verified 02/28/17 00:21) Home Medications: Home Medications Medication Instructions Recorded Confirmed Last Taken Type Rosuvastatin Calcium [Crestor] 20 mg PO QHS 07/03/17 05/13/18 1 Day Ago History ~03/10/18 Sevelamer Carbonate [Renvela] 2,400 mg PO TIDWM 07/03/17 05/13/18 1 Day Ago History ~03/10/18 Aspirin [Aspirin BABY CHEW TAB] 81 mg PO QDAY #30 tab.chew 07/05/17 05/13/18 1 Day Ago Rx ~03/10/18 B Complex 11/Folic/C/Biot/Zinc 1 each PO DAILY 02/13/18 05/13/18 1 Day Ago History [Dialyvite with Zinc Tablet] ~03/10/18 Ergocalciferol (Vitamin D2) 50,000 unit PO QWEEK 02/13/18 05/13/18 1 Day Ago History [Drisdol] ~03/10/18 Omeprazole 20 mg PO QDAY 02/13/18 05/13/18 1 Day Ago History ~03/10/18 ISOSORBIDE MONOnitrate [Imdur ER] 30 mg PO DAILY #30 tablet 02/14/18 05/13/18 1 Day Ago Rx ~03/10/18 Metoprolol [Lopressor TAB] 12.5 mg PO BID #30 tablet 02/14/18 05/13/18 1 Day Ago Rx ~03/10/18 Gabapentin [Neurontin] 100 mg PO BID #60 capsule 05/03/18 05/13/18 Unknown Rx Verapamil [Calan] 80 mg PO Q8HR #90 tablet 05/03/18 05/13/18 Unknown Rx Hydroxyzine HCl [hydrOXYzine] 50 mg PO TID 05/14/18 05/14/18 Unknown History traMADol [Ultram] 50 mg PO Q6HR PRN 05/14/18 05/14/18 Unknown History Active Medications: Generic Name Dose Route Start Last Admin Trade Name Freq PRN Reason Stop Dose Admin Acetaminophen 650 mg 05/13/18 14:08 Tylenol PO Q4H PRN Pain, Mild (1-3) Acetaminophen/Hydrocodone Bitart 1 each 05/14/18 03:16 05/18/18 06:58 [place] 5/325 PO 1 each Q6H PRN Administration Pain, Moderate (4-6) Aspirin 325 mg 05/14/18 10:00 05/19/18 09:25 Aspirin PO 325 mg QDAY GORDO Administration Atorvastatin Calcium 40 mg 05/14/18 22:00 05/18/18 21:43 Lipitor PO 40 mg QHS GORDO Administration Bisacodyl 10 mg 05/13/18 14:08 Dulcolax IN QDAY PRN Constipation Gabapentin 300 mg 05/16/18 22:00 05/18/18 21:43 Neurontin PO 300 mg QHS GORDO Administration Heparin Sodium (Porcine) 5,000 unit 05/13/18 22:00 05/19/18 09:26 Heparin SUB-Q 5,000 unit Q12HR GORDO Administration Hydralazine HCl 10 mg 05/14/18 04:36 05/17/18 09:02 Apresoline IV 10 mg Q6HR PRN Administration Hypertension Hydroxyzine HCl 50 mg 05/14/18 08:00 05/19/18 08:39 Atarax PO 50 mg TID GORDO Administration Sodium Chloride 100 mls @ 999 mls/hr 05/18/18 08:55 Nacl 0.9% IV JEANINE PRN Hypotension Cefazolin Sodium 1 gm in 50 mls @ 100 mls/hr 05/18/18 10:00 05/19/18 09:25 Ancef/Ns 1 Gm/50 Ml IV 100 mls/hr DAILY GORDO Administration Protocol Insulin Human Regular 0 units 05/17/18 17:00 05/19/18 08:42 Humulin R SUB-Q Not Given ACHS [facility] Protocol Metoclopramide HCl 2.5 mg 05/14/18 06:48 Reglan PO Q6H PRN Nausea And Vomiting Multivit/Ca Carb/B Cmplx/FA/Prenat 1 cap 05/14/18 10:00 05/19/18 09:25 Renal Caps PO 1 cap QDAY GORDO Administration Ondansetron HCl 4 mg 05/13/18 14:08 Zofran IV Q8H PRN Nausea And Vomiting Pantoprazole Sodium 20 mg 05/14/18 10:00 05/19/18 09:25 Protonix PO 20 mg QDAY GORDO Administration Promethazine HCl 25 mg 05/13/18 14:08 Phenergan IN Q6H PRN Nausea And Vomiting Sevelamer Carbonate 2,400 mg 05/14/18 08:00 05/19/18 08:39 Renvela PO 2,400 mg TIDWM GORDO Administration Sodium Chloride 10 ml 05/13/18 14:08 05/19/18 09:26 Sodium Chloride Flush Syringe 10 Ml IV 10 ml PRN PRN Administration LINE FLUSH Tramadol HCl 50 mg 05/16/18 14:57 05/19/18 08:39 Ultram PO 50 mg Q12H PRN Administration Pain Verapamil HCl 80 mg 05/14/18 14:00 05/19/18 05:51 Calan PO 80 mg Q8HR GORDO Administration
--- NOTE | 2018-05-19 14:21 | Anesthesia Consultation ---
Anesthesia Consult and Med Hx Date of service: 05/20/18 - Airway Anesthetic Teeth Evaluation: Poor, Edentulous (Upper missing ) ROM Head & Neck: Adequate Mental/Hyoid Distance: Adequate Mallampati Class: Class II Intubation Access Assessment: Probably Good (ASA IV scheduled for Dr Horner to R/O endocarditis.) - Pulmonary Exam CTA: Yes - Cardiac Exam Cardiac Exam: No Murmur - Pre-Operative Health Status ASA Pre-Surgery Classification: ASA4 Proposed Anesthetic Plan: MAC - Pulmonary Hx Smoking: Yes Hx Asthma: No COPD: No Hx Pneumonia: No - Cardiovascular System Hx Hypertension: Yes Hx Coronary Artery Disease: Yes (stents X1 2018) Hx Heart Attack/AMI: No Hx Angina: No Hx Percutaneous Transluminal Coronary Angioplasty (PTCA): No Hx Pacemaker: No Hx Internal Defibrillator: No Hx Valvular Heart Disease: No Hx Heart Murmur: No Hx Peripheral Vascular Disease: No - Central Nervous System Hx Seizures: Yes (last seizure was in 2018 pt is no longer on Meds ) CVA: Yes Hx Psychiatric Problems: No - Endocrine Hx Renal Disease: No Hx End Stage Renal Disease: Yes (MWF ) Hx Liver Disease: No Hx Insulin Dependent Diabetes: No (Pt states that DM was resolved after dialysis was started ) Hx Hypothyroidism: No Hx Hyperthyroidism: No - Other Systems Hx Substance Use: Yes (Cocaine) Hx Cancer: No
--- NOTE | 2018-05-19 17:50 | Progress Note ---
Assessment and Plan Assessment and plan: Staph epidermidis bacteremia. Continue Cefizox per ID recommendations. STEVE to evaluate for endocarditis per ID recommendations. Follow-up blood cultures. Headache. Consider CT scan of head if persists Hyperkalemia. Kayexalate 1. Recheck BMP later today. Hemodialysis in a.m. Peripheral neuropathy. No evidence of CVA. MRI revealed no evidence of acute ischemia or hemorrhage. Small vessel ischemic changes. Bilateral small chronic lacunar infarcts. Neurology following. Continue Trial of Neurontin at 300 mg TID. PT/OT Metabolic encephalopathy. Patient with uremic encephalopathy resolving after hemodialysis. ESRD. Continue Friday inpatient hemodialysis schedule. Hyperkalemia. Continue a low potassium diet. Dialysis per nephrology. Follow- up BMP Anemia chronic disease. Monitor H&H and transfuse for hemoglobin less than 7. Accelerated hypertension. Resume antihypertensive medications. Diabetes mellitus type 2. Continue Accu-Cheks and sliding scale insulin. CAD. Patient with coronary artery disease status post multivessel PCI. MPI completed on 01/2018 revealed small mildly reversible inferior wall defect consistent with RCA ischemia. Cardiac catheterization completed on that admission revealed Patent Cx and RCA stents, non-obstructive LAD disease, normal LVEF Disposition. Will have STEVE tomorrow. History Interval history: Patient was seen and divided this morning, patient was not in pain or distress Hospitalist Physical - Physical exam Narrative exam: Not in cardiopulmonary distress. The patient appeared well nourished and normally developed. Vital signs as documented. Head exam is unremarkable. No scleral icterus . Neck is without jugular venous distension, thyromegaly, or carotid bruits. Lungs are clear to auscultation. Cardiac exam reveals regular rate and Rhythm. First and second heart sounds normal. No murmurs, rubs or gallops. Abdominal exam reveals normal bowel sounds, no masses, no organomegaly and no aortic enlargement. Extremities are nonedematous and both femoral and pedal pulses are normal. 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 No focal weakness. - Constitutional Vitals: Temp Pulse Resp BP Pulse Ox 98.1 F 66 18 133/69 95 05/19/18 12:21 05/19/18 16:36 05/19/18 12:21 05/19/18 16:36 05/19/18 16:36 General appearance: Present: no acute distress Results - Labs CBC & Chem 7: 05/19/18 05:44 05/19/18 05:44 Labs: Laboratory Last Values WBC 4.2 K/mm3 (4.5-11.0) L 05/19/18 05:44 RBC 3.33 M/mm3 (3.65-5.03) L 05/19/18 05:44 Hgb 11.0 gm/dl (11.8-15.2) L 05/19/18 05:44 Hct 33.1 % (35.5-45.6) L 05/19/18 05:44 MCV 99 fl (84-94) H 05/19/18 05:44 MCH 33 pg (28-32) H 05/19/18 05:44 MCHC 33 % (32-34) 05/19/18 05:44 RDW 15.2 % (13.2-15.2) 05/19/18 05:44 Plt Count 169 K/mm3 (140-440) 05/19/18 05:44 Lymph % (Auto) 22.5 % (13.4-35.0) 05/19/18 05:44 Mineral % (Auto) 14.6 % (0.0-7.3) H 05/19/18 05:44 Eos % (Auto) 6.0 % (0.0-4.3) H 05/19/18 05:44 Baso % (Auto) 0.7 % (0.0-1.8) 05/19/18 05:44 Lymph # 0.9 K/mm3 (1.2-5.4) L 05/19/18 05:44 Mineral # 0.6 K/mm3 (0.0-0.8) 05/19/18 05:44 Eos # 0.2 K/mm3 (0.0-0.4) 05/19/18 05:44 Baso # 0.0 K/mm3 (0.0-0.1) 05/19/18 05:44 Add Manual Diff Complete 05/17/18 07:02 Total Counted 100 05/17/18 07:02 Seg Neutrophils % 56.2 % (40.0-70.0) 05/19/18 05:44 Seg Neuts % (Manual) 59.0 % (40.0-70.0) 05/17/18 07:02 Band Neutrophils % 3.0 % 05/17/18 07:02 Lymphocytes % (Manual) 20.0 % (13.4-35.0) 05/17/18 07:02 Reactive Lymphs % (Man) 0 % 05/17/18 07:02 Monocytes % (Manual) 13.0 % (0.0-7.3) H 05/17/18 07:02 Eosinophils % (Manual) 5.0 % (0.0-4.3) H 05/17/18 07:02 Basophils % (Manual) 0 % (0.0-1.8) 05/17/18 07:02 Metamyelocytes % 0 % 05/17/18 07:02 Myelocytes % 0 % 05/17/18 07:02 Promyelocytes % 0 % 05/17/18 07:02 Blast Cells % 0 % 05/17/18 07:02 Nucleated RBC % Not Reportable 05/17/18 07:02 Seg Neutrophils # 2.3 K/mm3 (1.8-7.7) 05/19/18 05:44 Seg Neutrophils # Man 3.2 K/mm3 (1.8-7.7) 05/17/18 07:02 Band Neutrophils # 0.2 K/mm3 05/17/18 07:02 Lymphocytes # (Manual) 1.1 K/mm3 (1.2-5.4) L 05/17/18 07:02 Abs React Lymphs (Man) 0.0 K/mm3 05/17/18 07:02 Monocytes # (Manual) 0.7 K/mm3 (0.0-0.8) 05/17/18 07:02 Eosinophils # (Manual) 0.3 K/mm3 (0.0-0.4) 05/17/18 07:02 Basophils # (Manual) 0.0 K/mm3 (0.0-0.1) 05/17/18 07:02 Metamyelocytes # 0.0 K/mm3 05/17/18 07:02 Myelocytes # 0.0 K/mm3 05/17/18 07:02 Promyelocytes # 0.0 K/mm3 05/17/18 07:02 Blast Cells # 0.0 K/mm3 05/17/18 07:02 WBC Morphology Not Reportable 05/17/18 07:02 Hypersegmented Neuts Not Reportable 05/17/18 07:02 Hyposegmented Neuts Not Reportable 05/17/18 07:02 Hypogranular Neuts Not Reportable 05/17/18 07:02 Smudge Cells Not Reportable 05/17/18 07:02 Toxic Granulation Not Reportable 05/17/18 07:02 Toxic Vacuolation Not Reportable 05/17/18 07:02 Dohle Bodies Not Reportable 05/17/18 07:02 Pelger-Huet Anomaly Not Reportable 05/17/18 07:02 Libby Rods Not Reportable 05/17/18 07:02 Platelet Estimate Consistent w auto 05/17/18 07:02 Clumped Platelets Not Reportable 05/17/18 07:02 Plt Clumps, EDTA Not Reportable 05/17/18 07:02 Large Platelets Not Reportable 05/17/18 07:02 Giant Platelets Not Reportable 05/17/18 07:02 Platelet Satelliting Not Reportable 05/17/18 07:02 Plt Morphology Comment Not Reportable 05/17/18 07:02 RBC Morphology Normal 05/17/18 07:02 Dimorphic RBCs Not Reportable 05/17/18 07:02 Polychromasia Not Reportable 05/17/18 07:02 Hypochromasia Not Reportable 05/17/18 07:02 Poikilocytosis Not Reportable 05/17/18 07:02 Anisocytosis Not Reportable 05/17/18 07:02 Microcytosis Not Reportable 05/17/18 07:02 Macrocytosis Not Reportable 05/17/18 07:02 Spherocytes Not Reportable 05/17/18 07:02 Pappenheimer Bodies Not Reportable 05/17/18 07:02 Sickle Cells Not Reportable 05/17/18 07:02 Target Cells Not Reportable 05/17/18 07:02 Tear Drop Cells Not Reportable 05/17/18 07:02 Ovalocytes Not Reportable 05/17/18 07:02 Helmet Cells Not Reportable 05/17/18 07:02 Ordonez-Everman Bodies Not Reportable 05/17/18 07:02 [place] Rings Not Reportable 05/17/18 07:02 [place] Cells Not Reportable 05/17/18 07:02 Bite Cells Not Reportable 05/17/18 07:02 Crenated Cell Not Reportable 05/17/18 07:02 Elliptocytes Not Reportable 05/17/18 07:02 Acanthocytes (Spur) Not Reportable 05/17/18 07:02 Rouleaux Not Reportable 05/17/18 07:02 Hemoglobin C Crystals Not Reportable 05/17/18 07:02 Schistocytes Not Reportable 05/17/18 07:02 Malaria parasites Not Reportable 05/17/18 07:02 Ted Bodies Not Reportable 05/17/18 07:02 Hem Pathologist Commnt No 05/17/18 07:02 PT 13.4 Sec. (12.2-14.9) 05/13/18 11:23 INR 0.96 (0.87-1.13) 05/13/18 11:23 APTT 30.3 Sec. (24.2-36.6) 05/13/18 11:23 Thrombin Time 17.8 Sec. (15.1-19.6) 05/13/18 11:23 Sodium 138 mmol/L (137-145) 05/19/18 05:44 Potassium 5.3 mmol/L (3.6-5.0) H 05/19/18 05:44 Chloride 95.9 mmol/L (98-107) L 05/19/18 05:44 Carbon Dioxide 30 mmol/L (22-30) 05/19/18 05:44 Anion Gap 17 mmol/L 05/19/18 05:44 BUN 38 mg/dL (9-20) H 05/19/18 05:44 Creatinine 7.1 mg/dL (0.8-1.5) H 05/19/18 05:44 Estimated GFR 9 ml/min 05/19/18 05:44 BUN/Creatinine Ratio 5 % 05/19/18 05:44 Glucose 80 mg/dL (75-100) 05/19/18 05:44 POC Glucose 101 (70-105) 05/19/18 12:26 Lactic Acid 1.20 mmol/L (0.7-2.0) 05/13/18 13:08 Calcium 9.1 mg/dL (8.4-10.2) 05/19/18 05:44 Total Bilirubin 0.30 mg/dL (0.1-1.2) 05/13/18 11:23 AST 10 units/L (5-40) 05/13/18 11:23 ALT 8 units/L (7-56) 05/13/18 11:23 Alkaline Phosphatase 62 units/L (35-129) 05/13/18 11:23 Ammonia 45.0 umol/L (25-60) 05/13/18 11:47 Total Creatine Kinase 92 units/L (55-170) 05/13/18 11:23 CK-MB (CK-2) 2.9 ng/mL (0.0-4.0) 05/13/18 11:23 CK-MB (CK-2) Rel Index 3.1 (0-4) 05/13/18 11:23 Troponin T 0.042 ng/mL (0.00-0.029) H 05/13/18 11:23 NT-Pro-B Natriuret Pep 4257 pg/mL (0-900) H 05/13/18 13:08 Total Protein 7.0 g/dL (6.3-8.2) 05/13/18 11:23 Albumin 3.8 g/dL (3.9-5) L 05/13/18 11:23 Albumin/Globulin Ratio 1.2 % 05/13/18 11:23 Triglycerides 61 mg/dL (2-149) 05/13/18 11:23 Cholesterol 130 mg/dL (50-199) 05/13/18 11:23 LDL Cholesterol Direct 57 mg/dL (50-130) 05/13/18 11:23 HDL Cholesterol 68 mg/dL (40-59) H 05/13/18 11:23 Cholesterol/HDL Ratio 1.91 % 05/13/18 11:23 TSH 2.100 mlU/mL (0.270-4.200) 05/14/18 21:53 Urine Color Yellow (Yellow) 05/14/18 02:30 Urine Turbidity Clear (Clear) 05/14/18 02:30 Urine pH 8.0 (5.0-7.0) H 05/14/18 02:30 Ur Specific Ovalo 1.009 (1.003-1.030) 05/14/18 02:30 Urine Protein 100 mg/dl mg/dL (Negative) 05/14/18 02:30 Urine Glucose (UA) Neg mg/dL (Negative) 05/14/18 02:30 Urine Ketones Neg mg/dL (Negative) 05/14/18 02:30 Urine Blood Neg (Negative) 05/14/18 02:30 Urine Nitrite Neg (Negative) 05/14/18 02:30 Urine Bilirubin Neg (Negative) 05/14/18 02:30 Urine Urobilinogen < 2.0 mg/dL (<2.0) 05/14/18 02:30 Ur Leukocyte Esterase Neg (Negative) 05/14/18 02:30 Urine WBC (Auto) 1.0 /HPF (0.0-6.0) 05/14/18 02:30 Urine RBC (Auto) < 1.0 /HPF (0.0-6.0) 05/14/18 02:30 U Epithel Cells (Auto) < 1.0 /HPF (0-13.0) 05/14/18 02:30 Amorphous Crystals Few 05/14/18 02:30 Salicylates < 0.3 mg/dL (2.8-20.0) L 05/13/18 11:23 Acetaminophen < 5.0 ug/mL (10.0-30.0) L 05/13/18 11:23 Plasma/Serum Alcohol < 0.01 % (0-0.07) 05/13/18 11:23 Active Medications - Current Medications Current Medications: Generic Name Dose Route Start Last Admin Trade Name Freq PRN Reason Stop Dose Admin Acetaminophen 650 mg 05/13/18 14:08 Tylenol PO Q4H PRN Pain, Mild (1-3) Acetaminophen/Hydrocodone Bitart 1 each 05/14/18 03:16 05/18/18 06:58 [place] 5/325 PO 1 each Q6H PRN Administration Pain, Moderate (4-6) Aspirin 325 mg 05/14/18 10:00 05/19/18 09:25 Aspirin PO 325 mg QDAY GORDO Administration Atorvastatin Calcium 40 mg 05/14/18 22:00 05/18/18 21:43 Lipitor PO 40 mg QHS GORDO Administration Bisacodyl 10 mg 05/13/18 14:08 Dulcolax [place] QDAY PRN Constipation Gabapentin 300 mg 05/16/18 22:00 05/18/18 21:43 Neurontin PO 300 mg QHS GORDO Administration Heparin Sodium (Porcine) 5,000 unit 05/13/18 22:00 05/19/18 09:26 Heparin SUB-Q 5,000 unit Q12HR GORDO Administration Hydralazine HCl 10 mg 05/14/18 04:36 05/17/18 09:02 Apresoline IV 10 mg Q6HR PRN Administration Hypertension Hydroxyzine HCl 50 mg 05/14/18 08:00 05/19/18 14:21 Atarax PO 50 mg TID GORDO Administration Sodium Chloride 100 mls @ 999 mls/hr 05/18/18 08:55 Nacl 0.9% IV JEANINE PRN Hypotension Cefazolin Sodium 1 gm in 50 mls @ 100 mls/hr 05/18/18 10:00 05/19/18 09:25 Ancef/Ns 1 Gm/50 Ml IV 100 mls/hr DAILY GORDO Administration Protocol Insulin Human Regular 0 units 05/17/18 17:00 05/19/18 17:00 Humulin R SUB-Q Not Given ACHS [facility] Protocol Metoclopramide HCl 2.5 mg 05/14/18 06:48 Reglan PO Q6H PRN Nausea And Vomiting Multivit/Ca Carb/B Cmplx/FA/Prenat 1 cap 05/14/18 10:00 05/19/18 09:25 Renal Caps PO 1 cap QDAY GORDO Administration Ondansetron HCl 4 mg 05/13/18 14:08 Zofran IV Q8H PRN Nausea And Vomiting Pantoprazole Sodium 20 mg 05/14/18 10:00 05/19/18 09:25 Protonix PO 20 mg QDAY GORDO Administration Promethazine HCl 25 mg 05/13/18 14:08 Phenergan [place] Q6H PRN Nausea And Vomiting Sevelamer Carbonate 2,400 mg 05/14/18 08:00 05/19/18 17:13 Renvela PO 2,400 mg TIDWM GORDO Administration Sodium Chloride 10 ml 05/13/18 14:08 05/19/18 09:26 Sodium Chloride Flush Syringe 10 Ml IV 10 ml PRN PRN Administration LINE FLUSH Tramadol HCl 50 mg 05/16/18 14:57 05/19/18 14:37 Ultram PO 50 mg Q12H PRN Administration Pain Verapamil HCl 80 mg 05/14/18 14:00 05/19/18 14:21 Calan PO 80 mg Q8HR GORDO Administration
[2018-05-19] MEDS: NEURONTIN PO SCH (21:42)
[2018-05-19] MEDS: NORCO 5/325 PO PRN (22:55)
[2018-05-20 01:21] LABS: Hematocrit 29.4 % (35.5-45.6); Hemoglobin 9.7 gm/dl (11.8-15.2); Mean Corpuscular HGB Conc 33 % (32-34); Mean Corpuscular Volume 100 fl (84-94); Platelet Count 172 K/mm3 (140-440); Red Blood Count 2.95 M/mm3 (3.65-5.03); Red Cell Distribution Width 14.8 % (13.2-15.2)
[2018-05-20 02:19] LABS: RBC Morphology Normal; Total Cells Counted 100
[2018-05-20 05:37] LABS: Calcium 9.3 mg/dL (8.4-10.2)
[2018-05-20] MEDS: CALAN PO SCH ×2 (06:42→21:34)
[2018-05-20] MEDS: HumuLIN R SUB-Q SCH (08:00)
[2018-05-20] MEDS: RENVELA PO SCH (08:00)
[2018-05-20] MEDS: ATARAX PO SCH ×2 (08:00→21:33)
[2018-05-20] MEDS ORDERED: DIPRIVAN 10 MG/ML IV ONE ×2 (08:58→08:59)
[2018-05-20] MEDS ORDERED: HURRICAINE ONE 20% TOPICAL SPRAY MM NR (09:00)
[2018-05-20] MEDS ORDERED: NACL 0.9% 500 ML 500 ML IV SCH (09:00)
[2018-05-20] MEDS ORDERED: XYLOCAINE MPF 2% ONE (09:01)
--- NOTE | 2018-05-20 09:34 | Event Note ---
Date: 05/20/18 STEVE performed without complications 1.1 x 1.6 cm non-mobile echogenic density noted on the posterior mitral valve leaflet representing either nodular calcifications or old healed vegetation. There is mild to moderate mitral regurgitation No indication for surgical intervention unless persistent bacteremia, persistent fever or embolic phenomenon despite antibiotic therapy Continue IV antibiotic therapy
--- NOTE | 2018-05-20 11:03 | Progress Note ---
Assessment and Plan - Patient Problems (1) ESRD (end stage renal disease) Current Visit: Yes Status: Chronic Plan to address problem: cont HD on MWF schedule (2) Gait abnormality Current Visit: Yes Status: Acute Plan to address problem: Patient with history of falls at home. Will benefit from home health with physical therapy or placement at subacute rehabilitation (3) Hyperkalemia Current Visit: Yes Status: Acute Plan to address problem: K improved s/p HD. cont 2g K renal diet (4) Uremic encephalopathy Current Visit: Yes Status: Acute Plan to address problem: Secondary to missed dialysis. Improved (5) HTN (hypertension) Current Visit: No Status: Chronic Plan to address problem: Follow-up blood pressure on current medications (6) Neuropathy Current Visit: No Status: Chronic Plan to address problem: Neuropathy probably secondary to type 2 diabetes mellitus. Decreased gabapentin to 300 mg at bedtime only given the advanced kidney disease (7) Bacteremia due to Gram-positive bacteria Current Visit: Yes Status: Acute Plan to address problem: initial BCx pos for Staph Epi, repeat cultures negative. S/p STEVE which showed 1.1 x 1.6 cm non-mobile echogenic density on the posterior mitral valve leaflet representing either nodular calcifications or old healed vegetation. cont ABXs as per ID recommendations Subjective Date of service: 05/20/18 Principal diagnosis: end-stage renal disease Interval history: pt awake, alert, in NAD Objective - Vital Signs Vital signs: Vital Signs - 12hr 05/20/18 05/20/18 05/20/18 00:51 06:09 06:42 Temperature 98.0 F 97.5 F L Temperature [ Post-Procedure] Pulse Rate 66 69 68 Pulse Rate [ Intra-Procedure ] Pulse Rate [ Post-Procedure] Pulse Rate [Pre -Procedure] Respiratory 20 18 Rate Respiratory Rate [Intra- Procedure] Respiratory Rate [Post- Procedure] Respiratory Rate [Pre- Procedure] Blood Pressure 124/72 139/84 139/84 Blood Pressure [Intra- Procedure] Blood Pressure [Post-Procedure ] Blood Pressure [Pre-Procedure] O2 Sat by Pulse 93 95 Oximetry O2 Sat by Pulse Oximetry [ Intra-Procedure ] O2 Sat by Pulse Oximetry [Post -Procedure] O2 Sat by Pulse Oximetry [Pre- Procedure] 05/20/18 05/20/18 05/20/18 08:50 09:08 09:17 Temperature Temperature [ Post-Procedure] Pulse Rate Pulse Rate [ 56 L Intra-Procedure ] Pulse Rate [ 59 L Post-Procedure] Pulse Rate [Pre 64 -Procedure] Respiratory Rate Respiratory 8 L Rate [Intra- Procedure] Respiratory 14 Rate [Post- Procedure] Respiratory 14 Rate [Pre- Procedure] Blood Pressure Blood Pressure 153/91 [Intra- Procedure] Blood Pressure 123/76 [Post-Procedure ] Blood Pressure 154/83 [Pre-Procedure] O2 Sat by Pulse Oximetry O2 Sat by Pulse 98 Oximetry [ Intra-Procedure ] O2 Sat by Pulse 98 Oximetry [Post -Procedure] O2 Sat by Pulse 96 Oximetry [Pre- Procedure] 05/20/18 05/20/18 09:32 09:45 Temperature Temperature [ 97.3 F L Post-Procedure] Pulse Rate Pulse Rate [ Intra-Procedure ] Pulse Rate [ 56 L 58 L Post-Procedure] Pulse Rate [Pre -Procedure] Respiratory Rate Respiratory Rate [Intra- Procedure] Respiratory 17 15 Rate [Post- Procedure] Respiratory Rate [Pre- Procedure] Blood Pressure Blood Pressure [Intra- Procedure] Blood Pressure 130/74 145/84 [Post-Procedure ] Blood Pressure [Pre-Procedure] O2 Sat by Pulse Oximetry O2 Sat by Pulse Oximetry [ Intra-Procedure ] O2 Sat by Pulse 100 95 Oximetry [Post -Procedure] O2 Sat by Pulse Oximetry [Pre- Procedure] - General Appearance General appearance: well-developed, well-nourished, appears stated age EENT: ATNC, PERRL, mucous membranes moist Neck: no JVD Respiratory: Present: Clear to Ascultation Cardiology: regular, S1S2 Gastrointestinal: normoactive bowel sounds Integumentary: no rash, other (no edema ) - Lab 05/20/18 01:00 05/20/18 04:25 Most recent lab results Calcium 9.3 mg/dL (8.4-10.2) 05/20/18 04:25 Medications & Allergies - Medications Allergies/Adverse Reactions: Allergies No Known Allergies Allergy (Verified 02/28/17 00:21) Home Medications: Home Medications Medication Instructions Recorded Confirmed Last Taken Type Rosuvastatin Calcium [Crestor] 20 mg PO QHS 07/03/17 05/13/18 1 Day Ago History ~03/10/18 Sevelamer Carbonate [Renvela] 2,400 mg PO TIDWM 07/03/17 05/13/18 1 Day Ago History ~03/10/18 Aspirin [Aspirin BABY CHEW TAB] 81 mg PO QDAY #30 tab.chew 07/05/17 05/13/18 1 Day Ago Rx ~03/10/18 B Complex 11/Folic/C/Biot/Zinc 1 each PO DAILY 02/13/18 05/13/18 1 Day Ago History [Dialyvite with Zinc Tablet] ~03/10/18 Ergocalciferol (Vitamin D2) 50,000 unit PO QWEEK 02/13/18 05/13/18 1 Day Ago History [Drisdol] ~03/10/18 Omeprazole 20 mg PO QDAY 02/13/18 05/13/18 1 Day Ago History ~03/10/18 ISOSORBIDE MONOnitrate [Imdur ER] 30 mg PO DAILY #30 tablet 02/14/18 05/13/18 1 Day Ago Rx ~03/10/18 Metoprolol [Lopressor TAB] 12.5 mg PO BID #30 tablet 02/14/18 05/13/18 1 Day Ago Rx ~03/10/18 Gabapentin [Neurontin] 100 mg PO BID #60 capsule 05/03/18 05/13/18 Unknown Rx Verapamil [Calan] 80 mg PO Q8HR #90 tablet 05/03/18 05/13/18 Unknown Rx Hydroxyzine HCl [hydrOXYzine] 50 mg PO TID 05/14/18 05/14/18 Unknown History traMADol [Ultram] 50 mg PO Q6HR PRN 05/14/18 05/14/18 Unknown History Active Medications: Generic Name Dose Route Start Last Admin Trade Name [place] PRN Reason Stop Dose Admin Acetaminophen 650 mg 05/13/18 14:08 Tylenol PO Q4H PRN Pain, Mild (1-3) Acetaminophen/Hydrocodone Bitart 1 each 05/14/18 03:16 05/19/18 22:55 [place] 5/325 PO 1 each Q6H PRN Administration Pain, Moderate (4-6) Aspirin 325 mg 05/14/18 10:00 05/19/18 09:25 Aspirin PO 325 mg QDAY GORDO Administration Atorvastatin Calcium 40 mg 05/14/18 22:00 05/19/18 21:42 Lipitor PO 40 mg QHS GORDO Administration Benzocaine 3 spray 05/20/18 09:00 05/20/18 09:05 Hurricaine One 20% Topical [place] MM 05/20/18 16:00 3 spray PREOP NR Administration Bisacodyl 10 mg 05/13/18 14:08 Dulcolax [place] QDAY PRN Constipation Gabapentin 300 mg 05/16/18 22:00 05/19/18 21:42 Neurontin PO 300 mg QHS GORDO Administration Heparin Sodium (Porcine) 5,000 unit 05/13/18 22:00 05/19/18 21:44 Heparin SUB-Q 5,000 unit Q12HR GORDO Administration Hydralazine HCl 10 mg 05/14/18 04:36 05/17/18 09:02 Apresoline IV 10 mg Q6HR PRN Administration Hypertension Hydroxyzine HCl 50 mg 05/14/18 08:00 05/19/18 21:41 Atarax PO 50 mg TID GORDO Administration Sodium Chloride 100 mls @ 999 mls/hr 05/18/18 08:55 Nacl 0.9% IV JEANINE PRN Hypotension Cefazolin Sodium 1 gm in 50 mls @ 100 mls/hr 05/18/18 10:00 05/19/18 09:25 Ancef/Ns 1 Gm/50 Ml IV 100 mls/hr DAILY GORDO Administration Protocol Sodium Chloride 500 mls @ 50 mls/hr 05/20/18 09:00 05/20/18 09:00 Nacl 0.9% 500 Ml IV 05/20/18 20:00 50 mls/hr DIRECT GORDO Administration Insulin Human Regular 0 units 05/17/18 17:00 05/19/18 22:49 Humulin R SUB-Q Not Given ACHS GORDO Protocol Metoclopramide HCl 2.5 mg 05/14/18 06:48 Reglan PO Q6H PRN Nausea And Vomiting Multivit/Ca Carb/B Cmplx/FA/Prenat 1 cap 05/14/18 10:00 05/19/18 09:25 Renal Caps PO 1 cap QDAY GORDO Administration Ondansetron HCl 4 mg 05/13/18 14:08 Zofran IV Q8H PRN Nausea And Vomiting Pantoprazole Sodium 20 mg 05/14/18 10:00 05/19/18 09:25 Protonix PO 20 mg QDAY GORDO Administration Promethazine HCl 25 mg 05/13/18 14:08 Phenergan [place] Q6H PRN Nausea And Vomiting Sevelamer Carbonate 2,400 mg 05/14/18 08:00 05/19/18 17:13 Renvela PO 2,400 mg TIDWM GORDO Administration Sodium Chloride 10 ml 05/13/18 14:08 05/19/18 09:26 Sodium Chloride Flush Syringe 10 Ml IV 10 ml PRN PRN Administration LINE FLUSH Tramadol HCl 50 mg 05/16/18 14:57 05/19/18 14:37 Ultram PO 50 mg Q12H PRN Administration Pain Verapamil HCl 80 mg 05/14/18 14:00 05/20/18 06:42 Calan PO 80 mg Q8HR GORDO Administration
--- NOTE | 2018-05-20 11:14 | Progress Note ---
Assessment and Plan Imaging Cultures: 05/13/2018 Blood: CoNS, 4 out of 4 bottles 05/14/2018 Urine: 10-110K of mixed culture of greater than 2 organisms. 05/13/2018 MRSA PCR: negative 05/13/2018: Blood; no growth A/P: 63 -year old male with a past medical history of End-stage renal disease, on dialysis, Friday, Friday, Friday, hypertension, stroke, congestive heart failure, diabetes, seizure, Heart disease, stents that was brought to the ED on 05/13/18 for altered mental status and inability to ambulate upon waking from sleep. Now admitted with: 1. CoNS Bacteremia: cultures grew 4 out of 4 bottles, repeat cultures show no growth to date. Source not clear. ESRD ON HD via left AVF. TTE showed a 2cm calcified lesion on the arterial surface of the posterior mitral leaflet which appears consistent with an old healed vegetation. STEVE ordered. No fevers or leukocytosis. Chest xray showed a presumed right upper lobe and possible right basal pneumonia, however chest CTA showed no acute lung changes. U/A was not consistent with a UTI. Urine cultures showed mixed culture of greater than 2 organisms. STEVE - No vegetation on Aortic or Tricuspid valve. Echogenic density noted on posterior mitral valve leaftlet This may reperesnt nodule calcification vs old healed vegetation. 2. ESRD on HD: via left AVF, MWF. Nephrology following. Antibiotics renally dosed. 3. Metabolic Encephalopathy: Better. Related to uremia. 4. Diabetes Type 2: uncontrolled. Recommend tight glycemic control. 5. CAD: : MPI completed on 01/2018 revealed small mildly reversible inferior wall defect consistent with RCA ischemia. Cardiac catheterization completed on that admission revealed Patent Cx and RCA stents, non-obstructive LAD disease, normal LVEF Plan -continue Cefazolin 1 gm every 24 hours, D4 -Anticipate Discharge on Cefazolin IV 2 gms on Friday, 2 gms on Friday and 3 gms on Friday post HD until 05-28-18. -Order placed with Case management [facility] M: [id number] O:[phone] - Subjective Date of service: 05/20/18 Principal diagnosis: end-stage renal disease Interval history: Patient seen and examined. Denies generalized pain , no fever. States that he is doing better today. Family at bedside. Objective - Exam Narrative Exam: Constitutional: Alert, cooperative. No acute distress Head, Ears, Nose: Normocephalic, atraumatic. External ears, nose normal Eyes: Conjunctivae/corneas clear. No icterus. No ptosis. Neck: Supple, no meningeal signs Oral: dentition fair, no thrush Cardiovascular: S1, S2 normal. Respiratory: Good air entry, clear to auscultation bilaterally, + sob when ambulating to the bathroom. GI: Soft, non-tender; bowel sounds normal. No peritoneal signs Musculoskeletal: No pedal edema, no cyanosis., + Left AVF Skin: No rash or abscess. Hem/Lymphatic: No palpable cervical or supraclavicular nodes. No lymphangitis Psych: Mood ok. Affect normal Neurological: Awake, alert, oriented. - Constitutional Vitals: Vital Signs Temp Pulse Resp BP Pulse Ox 97.3 F L 58 L 15 145/84 95 05/20/18 09:32 05/20/18 09:45 05/20/18 09:45 05/20/18 09:45 05/20/18 09:45 Temperature -Last 24 Hours Temperature [Post-Procedure] 97.3 F Temperature 97.5 F Temperature 98.0 F Temperature 97.8 F Temperature 98.1 F - Labs CBC & Chem 7: 05/20/18 01:00 05/20/18 04:25 Labs: Abnormal lab results 05/19/18 05/20/18 05/20/18 Range/Units 16:41 01:00 04:25 WBC 4.3 L (4.5-11.0) K/mm3 RBC 2.95 L (3.65-5.03) M/mm3 Hgb 9.7 L (11.8-15.2) gm/dl Hct 29.4 L (35.5-45.6) % MCV 100 H (84-94) fl MCH 33 H (28-32) pg Monocytes % (Manual) 16.0 H (0.0-7.3) % Eosinophils % (Manual) 5.0 H (0.0-4.3) % Basophils % (Manual) 3.0 H (0.0-1.8) % Sodium 136 L (137-145) mmol/L Potassium 5.2 H (3.6-5.0) mmol/L Chloride 92.6 L (98-107) mmol/L BUN 50 H (9-20) mg/dL Creatinine 8.2 H (0.8-1.5) mg/dL POC Glucose 113 H (70-105)
[2018-05-20] MEDS ORDERED: NACL 0.9% 100 ML IV PRN (13:18)
--- NOTE | 2018-05-20 13:51 | Discharge Summary ---
Providers - Providers Date of Admission: 05/13/18 14:08 Attending physician: TREVIN HUNTER MD 05/13/18 Consult to Physician [CONS] Stat Comment: Consulting Provider: CAN URIOSTEGUI Physician Instructions: Reason For Exam: suspected stroke 05/13/18 11:14 Consult to Physician [CONS] Urgent Comment: OFFICE NOTIFIED 1140 Consulting Provider: MCKENZIE KIM Physician Instructions: Reason For Exam: ams 05/13/18 14:09 Occupational Therapy Evaluate and Treat [CONS] Routine Comment: Reason For Exam: Neuro deficits Physical Therapy Evaluation and Treat [CONS] Routine Comment: Reason For Exam: Neuro deficits 05/13/18 14:12 Consult to Physician [CONS] Routine Comment: DR KIM NOTIFIED 1130 Consulting Provider: STORM SENIOR Physician Instructions: Reason For Exam: esrd 05/14/18 06:36 Consult to Physician [CONS] Routine Comment: Consulting Provider: MAXIMO TADEO Physician Instructions: Reason For Exam: cva 05/16/18 13:06 Consult to Physician [CONS] Routine Comment: Consulting Provider: BOBBY CORONADO Physician Instructions: Reason For Exam: staph bacteremia Primary care physician: ERNA LOMBARDI Hospitalization Reason for admission: s. epidermidis bactreamia Condition: Fair Pertinent studies: STEVE MRI Hospital course: Staph epidermidis bacteremia. Continue Cefizox per ID recommendations. STEVE negative for endocarditis per ID recommendations. Headache resolved Hyperkalemia resolved Peripheral neuropathy. No evidence of CVA. MRI revealed no evidence of acute ischemia or hemorrhage. Small vessel ischemic changes. Bilateral small chronic lacunar infarcts. Neurology consult appreciated. Metabolic encephalopathy. Patient with uremic encephalopathy resolved after hemodialysis. ESRD. Continue Friday Anemia chronic disease Diabetes mellitus type 2 managed appropriately CAD. Patient with coronary artery disease status post multivessel PCI. MPI completed on 01/2018 revealed small mildly reversible inferior wall defect consistent with RCA ischemia. Cardiac catheterization completed on that admission revealed Patent Cx and RCA stents, non-obstructive LAD disease, normal LVEF. STEVE was done and negative for endocarditis vision was discharged without antibiotics. ID and his management arranged for IV antibiotics. Patient was hemodynamically stable at the time of discharge. Disposition: [id number] HOME UNDER HOME [facility] Time spent for discharge: 32 minutes - Discharge Diagnoses (1) ESRD (end stage renal disease) on dialysis Status: Acute (2) Bacteremia due to Gram-positive bacteria Status: Acute Core Measure Documentation - Palliative Care Palliative Care/ Comfort Measures: Not Applicable - Core Measures Any of the following diagnoses?: none Exam - Physical Exam Narrative exam: Not in cardiopulmonary distress. The patient appeared well nourished and normally developed. Vital signs as documented. Head exam is unremarkable. No scleral icterus . Neck is without jugular venous distension, thyromegaly, or carotid bruits. Lungs are clear to auscultation. Cardiac exam reveals regular rate and Rhythm. First and second heart sounds normal. No murmurs, rubs or gallops. Abdominal exam reveals normal bowel sounds, no masses, no organomegaly and no aortic enlargement. Extremities are nonedematous and both femoral and pedal pulses are normal. ASSISTANT THERAPY AIDE: Alert and oriented 3. No focal weakness. - Constitutional Vitals: Temp Pulse Resp BP Pulse Ox 97.3 F L 58 L 15 145/84 95 05/20/18 09:32 05/20/18 09:45 05/20/18 09:45 05/20/18 09:45 05/20/18 09:45 Plan Activity: no restrictions Weight Bearing Status: Full Weight Bearing Diet: low salt, renal Special Instructions: physical therapy Follow up with: RENA LOMBARDI MD [Primary Care Provider] - 3-5 Days
[2018-05-20] MEDS: NORCO 5/325 PO PRN ×2 (15:36→21:34)
[2018-05-20] MEDS: NEURONTIN PO SCH (21:33)
[2018-05-20 21:36] VITALS: BP 174/99
--- NOTE | 2018-05-21 07:46 | Cat Scan Report ---
PROCEDURE: CT ANGIO HEAD TECHNIQUE: A CT angiogram was performed following the intravenous injection of iodinated contrast. M IP reconstructions were not included. HISTORY: stroke sx COMPARISONS: CT head from 05/13/2018 FINDINGS: In the posterior circulation both vertebral arteries and basilar artery are widely patent. There is n ormal bifurcation of the basilar artery into both posterior cerebral arteries. In the anterior circulation the cavernous and supraclinoid internal carotid arteries are well visuali zed. There is normal bifurcation into the anterior and middle cerebral arteries bilaterally. There is no evidence of aneurysm or enhancing lesions. The visualized dural venous sinuses appear normal. IMPRESSION: Unremarkable CTA of the brain.. This document is electronically signed by Jacky Rivera MD., May 21 2018 07:43:21 AM ET
== END 2018-05-20 21:45 | disposition home health service (06) | DRG 70 ==
LOC: ED 10:24 → 4A 14:08
PROVIDERS: ADMIT Internal Medicine; ATTEND Internal Medicine
PROC: 5A1D70Z Performance of Urinary Filtration, Intermittent, Less than 6 Hours Per Day (ICD-10-PCS; 2018-05-13)
PROC: 3E0234Z Introduction of Serum, Toxoid and Vaccine into Muscle, Percutaneous Approach (ICD-10-PCS; principal; 2018-05-14)
PROC: 5A1D70Z Performance of Urinary Filtration, Intermittent, Less than 6 Hours Per Day (ICD-10-PCS; 2018-05-15)
PROC: 5A1D70Z Performance of Urinary Filtration, Intermittent, Less than 6 Hours Per Day (ICD-10-PCS; 2018-05-18)
PROC: 5A1D70Z Performance of Urinary Filtration, Intermittent, Less than 6 Hours Per Day (ICD-10-PCS; 2018-05-20)
DX: G93.41 Metabolic encephalopathy (principal); N18.6 End stage renal disease; I50.42 Chronic combined systolic (congestive) and diastolic (congestive) heart failure; I13.2 Hypertensive heart and chronic kidney disease with heart failure and with stage 5 chronic kidney disease, or end stage renal disease; N25.81 Secondary hyperparathyroidism of renal origin; R78.81 Bacteremia; I25.110 Atherosclerotic heart disease of native coronary artery with unstable angina pectoris; D63.1 Anemia in chronic kidney disease; G40.909 Epilepsy, unspecified, not intractable, without status epilepticus; E87.5 Hyperkalemia; E11.22 Type 2 diabetes mellitus with diabetic chronic kidney disease; E11.42 Type 2 diabetes mellitus with diabetic polyneuropathy; D63.8 Anemia in other chronic diseases classified elsewhere; Z99.2 Dependence on renal dialysis; Z23 Encounter for immunization; Z86.73 Personal history of transient ischemic attack (TIA), and cerebral infarction without residual deficits; Z79.82 Long term (current) use of aspirin; Z79.899 Other long term (current) drug therapy; Z79.84 Long term (current) use of oral hypoglycemic drugs; Z83.3 Family history of diabetes mellitus; Z82.49 Family history of ischemic heart disease and other diseases of the circulatory system; Z95.9 Presence of cardiac and vascular implant and graft, unspecified
CPT/HCPCS: 36415; 70450; 70496; 70498; 70544; 70551; 71045; 71275; 74174; 80048; 80053; 80061; 80320; 81001; 82140; 82550; 82553; 82962; 83880; 84443; 84484; 85007; 85025; 85610; 85670; 85730; 87040; 87076; 87086; 87116; 87186; 90471; 90686; 90732; 93005; 93010; 93306; 93312; 93320; 93325; 96365; 96375; G0378; A9270-GY; G0008; G0009; G0480; J0360; J0610; J0690; J1630; J1644; J1815; J1956; J2704; J7030; J7040; Q9967

== ENCOUNTER 2018-07-07 11:10 | Inpatient (IN) | payer MEDICARE ==
[2018-07-07] MEDS ORDERED: D50W (25GM) Syringe IV PRN (15:48)
[2018-07-07] MEDS ORDERED: DULCOLAX PR PRN (16:14)
[2018-07-07] MEDS ORDERED: ZOFRAN ODT PO PRN (16:17)
--- NOTE | 2018-07-07 16:57 | History and Physical Report ---
History of Present Illness Date: 07/07/18 Referring Facility: [facility] Date of admission: 07/07/2018 Chief Complaint: CVA with Right hemiparesis History of present illness: 63-year-old [id number] male who developed weakness during dialysis was sent to the hospital. 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 Afterwards he is monitored closely in the ICU per protocol. Once stable he was transferred to the floor and seen by therapy. He currently has dysarthria and states he may have some issues with word finding. Most recently he was on a dysphagia diet and we will have swallowing assessed to ensure his he is safe. He has a history of seizures but is not taking any AEDs. He states his last seizure activity was years ago by his account during dialysis. He still has significant right-sided weakness as well as a right facial droop. After he was medically cleared he was transferred for further rehabilitation. All available outside hospital records were reviewed, most recent hospital stays here have also been reviewed. Discussed smoking cessation, alcohol sensation, and secondary stroke prevention and prognosis with the patient. We'll start therapy evaluations tomorrow morning and hope to see further return of function. Hospitalist group and nephrology have both been consulted and I appreciate their assistance. Of note, none of the patient's dialysis medications were sent with his discharge. We'll attempt to contact hand alterations tailor to see him as quickly as possible and add these medications back on. Past History Past Medical History: CAD, diabetes, hypertension, hyperlipidemia, renal failure, seizures (not taking AED), stroke, other (Congestive heart failure) Past Surgical History: Other (left AV fistula, cardiac stents) Social history: , lives with family, smoking, full code. denies: alcohol abuse (past, not currently), prescription drug abuse, IV drug use Family history: diabetes, hypertension Medications and Allergies Allergies Allergy/AdvReac Type Severity Reaction Status Date / Time No Known Allergies Allergy Verified 02/28/17 00:21 Home Medications Medication Instructions Recorded Confirmed Last Taken Type Rosuvastatin Calcium [Crestor] 20 mg PO QHS 07/03/17 05/13/18 1 Day Ago History ~03/10/18 Sevelamer Carbonate [Renvela] 2,400 mg PO TIDWM 07/03/17 05/13/18 1 Day Ago History ~03/10/18 Aspirin [Aspirin BABY CHEW TAB] 81 mg PO QDAY #30 tab.chew 07/05/17 05/13/18 1 Day Ago Rx ~03/10/18 B Complex 11/Folic/C/Biot/Zinc 1 each PO DAILY 02/13/18 05/13/18 1 Day Ago History [Dialyvite with Zinc Tablet] ~03/10/18 Ergocalciferol (Vitamin D2) 50,000 unit PO QWEEK 02/13/18 05/13/18 1 Day Ago History [Drisdol] ~03/10/18 Omeprazole 20 mg PO QDAY 02/13/18 05/13/18 1 Day Ago History ~03/10/18 ISOSORBIDE MONOnitrate [Imdur ER] 30 mg PO DAILY #30 tablet 02/14/18 05/13/18 1 Day Ago Rx ~03/10/18 Metoprolol [Lopressor TAB] 12.5 mg PO BID #30 tablet 02/14/18 05/13/18 1 Day Ago Rx ~03/10/18 Gabapentin [Neurontin] 100 mg PO BID #60 capsule 05/03/18 05/13/18 Unknown Rx Verapamil [Calan] 80 mg PO Q8HR #90 tablet 05/03/18 05/13/18 Unknown Rx Hydroxyzine HCl [hydrOXYzine] 50 mg PO TID 05/14/18 05/14/18 Unknown History traMADol [Ultram 50 MG tab] 50 mg PO Q6HR PRN 05/14/18 05/14/18 Unknown History Active Meds: Active Medications Acetaminophen (Tylenol) 500 mg PO Q6H PRN PRN Reason: Pain, Mild (1-3) Aspirin (Ecotrin) 325 mg PO QDAY [facility] Atorvastatin Calcium (Lipitor) 40 mg PO QHS [facility] Bisacodyl (Dulcolax) 10 mg MA QDAY PRN PRN Reason: Constipation Dextrose (D50w (25gm) Syringe) 50 ml IV PRN PRN PRN Reason: Hypoglycemia Docusate Sodium (Colace) 100 mg PO BID [facility] Furosemide (Lasix) 40 mg PO QDAY [facility] Heparin Sodium (Porcine) (Heparin) 5,000 unit SUB-Q Q8HR [facility] Insulin Human Lispro (Humalog) 0 unit SUB-Q [facility]; Protocol Metoprolol Tartrate (Lopressor) 25 mg PO BID [facility] Ondansetron HCl (Zofran Odt) 4 mg PO Q8H PRN PRN Reason: Nausea And Vomiting Review of Systems All systems: negative (ROS negative for 12 systems except as noted below with pertinent positives and negatives.) Constitutional: fatigue, weakness Ears, nose, mouth and throat: no decreased hearing, no dysphagia, no voice changes Cardiovascular: decreased exercise tolerance, no chest pain, no rapid/irregular heart beat, no shortness of breath Respiratory: no cough, no shortness of breath, no pain on inspiration Gastrointestinal: no abdominal pain, no nausea, no vomiting, no diarrhea, no constipation Genitourinary Male: no dysuria Rectal: flatulence Musculoskeletal: limitation of motion, gait dysfunction, no leg numbness/tingling Integumentary: no rash Neurological: paralysis, numbness, lack of coordination, balance difficulties Psychiatric: no memory loss Endocrine: no polydipsia, no polyuria Hematologic/Lymphatic: no easy bleeding Exam - Exam Narrative exam: MUSCULOSKELETAL SPECIALTY EXAM CONSTITUTIONAL: Well developed, well nourished, appropriately groomed. RIGHT hand dominant. LYMPHATIC: No appreciable abnormalities palpable in neck RESPIRATORY: Clear to auscultation bilaterally, no increased work of breathing CARDIOVASCULAR: Regular Rate/ Rhythm, no swelling, edema or tenderness in BUE or BLE. Pulses palpable in all extremities. All extremities warm. Palpable thrill in left arm GI: + bowel sounds, soft, NTTP, nondistended, protuberant. INTEGUMENTARY: Normal, no lesion, rash, masses or bruising noted in extremities. MUSCULOSKELETAL: BUE and BLE normal without defect, crepitus, subluxation, effusion, arthritic changes or TTP. SA EF WE EE FF FA HF KE ADF EHL APF R 3/5 2/5 2/5 2/5 2/5 2/5 2/5 2/5 3/5 3/5 3/5 L 4/5 4/5 4/5 4/5 4/5 4/5 4/5 4/5 4/5 4/5 4/5 ROM - decreased on right Tone - normal NEURO: CN II : Visual archibald full to confrontation CN II, III : PERRL CN III, IV, : EOMI CN V : Facial sensation intact CN VII : Right facial droop CN VIII : Hearing intact to finger rustle CN IX, X : Palate/uvula elevate midline, phonation normal CN XI : Intact shoulder shrug and head rotation CN XII : Tongue protrudes midline to possibly left (likely from previous stroke) Sensation intact in all extremities without extinction. Reflexes 2+ bilaterally at biceps, brachioradialis and patella. No clonus at ankles. Coordination decreased on right. No tremor noted in 4 extremities. Naming and repetition intact. Follows 2 step commands. Aphasia not appreciated Dysarthria present Dysphagia dysphagia II with thin liquids Neglect not appreciated POSTURE and GAIT: Sitting posture good. Balance and gait deferred until seen with therapy. PSYCH: Alert, orientated x3, affect appears euthymic. Insight appears intact. Assessment and Plan Assessment and plan: Patient was assessed and evaluated for Acute Inpatient Rehab Unit. Due to the patients above-mentioned medical complexity, along with decreased functional mobility and self care, this patient continues to require and be appropriate for a comprehensive, multidisciplinary [id number] rehabilitation program. These needs cannot be met in an outpatient or other less intensive setting. The patient would continue to benefit from skilled therapy intervention for at least 3 hours per day, five days a week, with techniques specific to the needs of the patient to improve function, activities of daily living, and reintegration into the community. The patient continues to require: -- OT to improve ROM, self-care, and learn use of adaptive equipment -- PT to improve strength and balance, functional transfers, and ambulation with energy conservation techniques to improve functional mobility -- [employer] MAINTENA[employer]CE to address cognitive deficits and swallowing ability -- 24 hour RN to ensure and prevent skin breakdown, promote progressive independence while ensuring safety, ensure education regarding medications, and incorporation of the rehabilitation at the bedside -- 24 hour Ict Educator to coordinate this interdisciplinary program, and to manage/prevent complications as a result of the patients medical comorbidities. -Plan of care by day 4 -Weekly team conferences With such a program, there is a reasonable certainty that the goals individualized for this patient can be achieved within the specified length of stay. I69.351 CVA with right dominant hemiparesis: Continue secondary stroke preventi on, therapy as noted below. Monitor for changes and neuro status. Monitor for post stroke depression as well as shoulder-hand syndrome. I69.322 dysarthria: Speech and language pathology will assess in assist patient with return of function including strategies to help project voice and improved speech intelligibility. I69.391 dysphagia: Continue modified diet, [employer] CL[employer] MAINTENA[employer]CE will monitor progress develop s trategies to improve patient's safety swallowing and advance diet as able. Modified barium swallow for FEEs study as indicated. Z73.6 ADL dysfunction: OT will work on improving ability to perform ADLs (including assistive devices) to increase independence and decrease caregiver burden and improve functional transfers and mobility training. R26.2 Difficulty walking: PT will work on gait training and proper use of assistive devices and advance as appropriate to use of stairs and outside ambulation on uneven surfaces. R26.81 Unsteadiness on feet: PT will work on improving static and dynamic sitt ing and standing balance as well as proper use of assistive devices to decrease risk of falls. R26.89 Abnormality of gait: PT will work to improve safety and efficiency of gait through neuromotor training and gait training along with instruction on proper use of assistive devices. M62.81 Muscle weakness: PT & OT will work on strengthening exercises to improve functional strength including mixture of closed and open kinetic chain exercises. R53.81 Debility: PT & OT will work on improving overall functional status to improve participation with ADLs, mobility and social involvement. R53.83 Fatigue: PT & OT will work on improving endurance through aerobic exercises and therapeutic activity while monitoring patients tolerance for activity and vital signs as needed. Consults: Internal medicine consulted for management of diabetes, hypertension, CHF. Appreciate their assistance Nephrology consulted for management of end-stage renal disease and electrolytes. Appreciate their assistance DVT ppx: Heparin Pain: Continue physical modalities in therapy and pain medications as needed to achieve functional pain control. Sleep: Monitor and address as needed. Bowel: Monitor and address as needed. Appetite: Monitor and address as needed. Discharge planning: Pending therapy progress and care plan meeting. Will continue discussion with therapy team, SW, patient and family. Restrictions/ Precautions: Falls, seizures WB status: FWB Functional Hx: ADLs: Independent Cognition: Independent Mobility: Cane, single-point Barriers to Discharge: Decreased mobility and ability to perform self care, balance deficits, weakness, dysphagia, dysarthria Estimated Length of Stay: 1421 days Discharge Destination: Home with family POST ADMISSION PHYSICIAN EVALUATION I have examined the patient and find that functional status, medical condition and appropriateness for IRF admission are essentially unchanged from those described in the preadmission screening. Will monitor for worsening neurologic deficits, posterior depression, shoulder-hand syndrome, DVT/PE, bowel and bladder complications and complications due to hypertension, end-stage renal disease, diabetes, CHF, seizures and electrolyte abnormalities. Will attempt to avoid occurrence of these issues or treat them if they present themselves.
[2018-07-07] MEDS: HumaLOG SUB-Q SCH ×2 (18:30→22:29)
[2018-07-07] MEDS: LOPRESSOR PO SCH (22:26)
[2018-07-07] MEDS: COLACE PO SCH (22:26)
[2018-07-07] MEDS: HEPARIN SUB-Q SCH (22:27)
[2018-07-08] MEDS: TYLENOL PO PRN ×2 (01:33→22:11)
[2018-07-08] MEDS: HEPARIN SUB-Q SCH ×3 (05:47→22:00)
[2018-07-08 07:28] LABS: Basophils # (Auto) 0.1 K/mm3 (0.0-0.1); Basophils % (Auto) 1.3 % (0.0-1.8); Eosinophils # (Auto) 0.1 K/mm3 (0.0-0.4); Eosinophils % (Auto) 1.7 % (0.0-4.3); Hematocrit 39.6 % (35.5-45.6); Hemoglobin 13.2 gm/dl (11.8-15.2); Lymphocytes # (Auto) 0.7 K/mm3 (1.2-5.4); Lymphocytes % (Auto) 9.2 % (13.4-35.0); Mean Corpuscular HGB Conc 33 % (32-34); Mean Corpuscular Volume 102 fl (84-94); Monocytes # (Auto) 0.9 K/mm3 (0.0-0.8); Monocytes % (Auto) 11.1 % (0.0-7.3); Platelet Count 202 K/mm3 (140-440); Red Blood Count 3.89 M/mm3 (3.65-5.03); Red Cell Distribution Width 15.5 % (13.2-15.2)
[2018-07-08 07:43] LABS: Albumin 3.9 g/dL (3.9-5); Calcium 9.8 mg/dL (8.4-10.2); Chol/HDL Ratio 1.78 %
[2018-07-08] MEDS: HumaLOG SUB-Q SCH ×4 (08:09→23:05)
--- NOTE | 2018-07-08 09:54 | Consultation ---
History of Present Illness - Reason for Consult Consult date: 07/08/18 end stage renal disease, hyperkalemia Requesting physician: DESIRAE MARY III - History of Present Illness This is 63 yo M with past medical history of hypertension, CAD, ESRD on HD on MWF schedule, who was recently hospitalized at [facility] for acute CVA from 07/03 - 07/06, after presenting with slurred speech, Rt upper/lower extremity weakness, required tPA treatment on 07/03, after which symptoms improved to some degree. pt was transferred to [facility] acute rehab on 07/07, renal consult is requested for management of ESRD/HD. Past History Past Medical History: CAD, diabetes, hypertension, hyperlipidemia, renal failure, seizures (not taking AED), stroke, other (Congestive heart failure) Past Surgical History: Other (left AV fistula, cardiac stents) Social history: , lives with family, smoking, full code. denies: alcohol abuse (past, not currently), prescription drug abuse, IV drug use Family history: diabetes, hypertension Medications and Allergies Allergies Allergy/AdvReac Type Severity Reaction Status Date / Time No Known Allergies Allergy Verified 02/28/17 00:21 Home Medications Medication Instructions Recorded Confirmed Last Taken Type Rosuvastatin Calcium [Crestor] 20 mg PO QHS 07/03/17 05/13/18 1 Day Ago History ~03/10/18 Sevelamer Carbonate [Renvela] 2,400 mg PO TIDWM 07/03/17 05/13/18 1 Day Ago History ~03/10/18 Aspirin [Aspirin BABY CHEW TAB] 81 mg PO QDAY #30 tab.chew 07/05/17 05/13/18 1 Day Ago Rx ~03/10/18 B Complex 11/Folic/C/Biot/Zinc 1 each PO DAILY 02/13/18 05/13/18 1 Day Ago History [Dialyvite with Zinc Tablet] ~03/10/18 Ergocalciferol (Vitamin D2) 50,000 unit PO QWEEK 02/13/18 05/13/18 1 Day Ago History [Drisdol] ~03/10/18 Omeprazole 20 mg PO QDAY 02/13/18 05/13/18 1 Day Ago History ~03/10/18 ISOSORBIDE MONOnitrate [Imdur ER] 30 mg PO DAILY #30 tablet 02/14/18 05/13/18 1 Day Ago Rx ~03/10/18 Metoprolol [Lopressor TAB] 12.5 mg PO BID #30 tablet 02/14/18 05/13/18 1 Day Ago Rx ~03/10/18 Gabapentin [Neurontin] 100 mg PO BID #60 capsule 05/03/18 05/13/18 Unknown Rx Verapamil [Calan] 80 mg PO Q8HR #90 tablet 05/03/18 05/13/18 Unknown Rx Hydroxyzine HCl [hydrOXYzine] 50 mg PO TID 05/14/18 05/14/18 Unknown History traMADol [Ultram 50 MG tab] 50 mg PO Q6HR PRN 05/14/18 05/14/18 Unknown History Active Meds: Active Medications Acetaminophen (Tylenol) 500 mg PO Q6H PRN PRN Reason: Pain, Mild (1-3) Last Admin: 07/08/18 01:33 Dose: 500 mg Documented by: Aspirin (Ecotrin) 325 mg PO QDAY [facility] Atorvastatin Calcium (Lipitor) 40 mg PO QHS [facility] Last Admin: 07/07/18 22:26 Dose: 40 mg Documented by: Bisacodyl (Dulcolax) 10 mg NM QDAY PRN PRN Reason: Constipation Dextrose (D50w (25gm) Syringe) 50 ml IV PRN PRN PRN Reason: Hypoglycemia Docusate Sodium (Colace) 100 mg PO BID [facility] Last Admin: 07/07/18 22:26 Dose: 100 mg Documented by: Furosemide (Lasix) 40 mg PO QDAY [facility] Heparin Sodium (Porcine) (Heparin) 5,000 unit SUB-Q Q8HR [facility] Last Admin: 07/08/18 05:47 Dose: 5,000 unit Documented by: Sodium Chloride (Nacl 0.9%) 100 mls @ 999 mls/hr IV JEANINE PRN PRN Reason: Hypotension Insulin Human Lispro (Humalog) 0 unit SUB-Q [facility]; Protocol Last Admin: 07/07/18 22:29 Dose: Not Given Documented by: Metoprolol Tartrate (Lopressor) 25 mg PO BID [facility] Last Admin: 07/07/18 22:26 Dose: 25 mg Documented by: Ondansetron HCl (Zofran Odt) 4 mg PO Q8H PRN PRN Reason: Nausea And Vomiting Sevelamer Carbonate (Renvela) 2,400 mg PO AC [facility] Exam - Vital Signs Vital signs: Vital Signs Temp Pulse Resp BP Pulse Ox 98.1 F 72 18 151/81 100 07/07/18 15:55 07/07/18 15:55 07/07/18 15:55 07/07/18 15:55 07/07/18 15:55 - General Appearance General appearance: well-developed, well-nourished, appears stated age EENT: ATNC, PERRL, mucous membranes moist Neck: Present: neck supple Respiratory: Clear to Ascultation Heart: regular, S1S2 Gastrointestinal: Present: normoactive bowel sounds Integumentary: no rash, other (no edema ) Neurologic: no focal deficit, alert and oriented x3, CN 3-12 intact Psychiatric: mood/affect appropriate, cooperative Results - Lab Results 07/08/18 06:55 07/08/18 06:55 Most recent lab results Calcium 9.8 mg/dL (8.4-10.2) 07/08/18 06:55 Assessment and Plan - Patient Problems (1) Hyperkalemia Current Visit: No Status: Acute Plan to address problem: will arrange HD on MWF schedule, using 2K bath for correction of hyperkalemia. cont 2g k renal diet (2) Hypertensive chronic kidney disease with stage 5 chronic kidney disease or end stage renal disease Current Visit: Yes Status: Acute Plan to address problem: monitor BP on current meds. Will target UF 2L as tolerated. If Bp remains persistently elevated despite HD/UF will add hydralazine (3) End stage renal disease on dialysis Current Visit: No Status: Chronic Plan to address problem: cont HD on MWF schedule (4) Acute cerebrovascular accident Current Visit: Yes Status: Acute Plan to address problem: s/p tPA treatmetn, on ASA, cont PT/OT
[2018-07-08] MEDS ORDERED: NACL 0.9% 100 ML IV PRN (10:00)
[2018-07-08] MEDS: RENVELA PO SCH ×3 (10:02→16:37)
[2018-07-08] MEDS: LOPRESSOR PO SCH ×2 (10:02→22:05)
[2018-07-08] MEDS: ECOTRIN PO SCH (10:03)
[2018-07-08] MEDS: COLACE PO SCH ×2 (10:03→22:05)
[2018-07-08] MEDS: LASIX PO SCH (10:03)
[2018-07-08] MEDS: TUMS PO PRN (11:56)
[2018-07-09] MEDS: TUMS PO PRN (05:10)
[2018-07-09] MEDS: HEPARIN SUB-Q SCH ×3 (05:11→22:38)
[2018-07-09] MEDS: BENADRYL PO PRN ×2 (07:09→22:49)
--- NOTE | 2018-07-09 11:10 | Consultation ---
History of Present Illness - Reason for Consult Consult date: 07/09/18 - History of Present Illness This is 63 yo M with past medical history of hypertension, CAD, ESRD on HD on MWF schedule, who was recently hospitalized at [facility] for acute CVA from 07/03 - 07/06, after presenting with slurred speech, Rt upper/lower extremity weakness, required tPA treatment on 07/03, after which symptoms improved to some degree. pt was transferred to [facility] acute rehab on 07/07, medicine service consult is reque sted for medical management. Past History Past Medical History: CAD, diabetes, hypertension, hyperlipidemia, renal failure, seizures (not taking AED), stroke, other (Congestive heart failure) Past Surgical History: Other (left AV fistula, cardiac stents) Social history: , lives with family, smoking, full code. denies: alcohol abuse (past, not currently), prescription drug abuse, IV drug use Family history: diabetes, hypertension Medications and Allergies Allergies Allergy/AdvReac Type Severity Reaction Status Date / Time No Known Allergies Allergy Verified 02/28/17 00:21 Home Medications Medication Instructions Recorded Confirmed Last Taken Type Rosuvastatin Calcium [Crestor] 20 mg PO QHS 07/03/17 07/09/18 1 Day Ago History ~03/10/18 Sevelamer Carbonate [Renvela] 2,400 mg PO TIDWM 07/03/17 07/09/18 1 Day Ago History ~03/10/18 Aspirin [Aspirin BABY CHEW TAB] 81 mg PO QDAY #30 tab.chew 07/05/17 07/09/18 1 Day Ago Rx ~03/10/18 B Complex 11/Folic/C/Biot/Zinc 1 each PO DAILY 02/13/18 07/09/18 1 Day Ago History [Dialyvite with Zinc Tablet] ~03/10/18 Ergocalciferol (Vitamin D2) 50,000 unit PO QWEEK 02/13/18 07/09/18 1 Day Ago History [Drisdol] ~03/10/18 Omeprazole 20 mg PO QDAY 02/13/18 07/09/18 1 Day Ago History ~03/10/18 ISOSORBIDE MONOnitrate [Imdur ER] 30 mg PO DAILY #30 tablet 02/14/18 07/09/18 1 Day Ago Rx ~03/10/18 Metoprolol [Lopressor TAB] 12.5 mg PO BID #30 tablet 02/14/18 07/09/18 1 Day Ago Rx ~03/10/18 Gabapentin [Neurontin] 100 mg PO BID #60 capsule 05/03/18 07/09/18 Unknown Rx Verapamil [Calan] 80 mg PO Q8HR #90 tablet 05/03/18 07/09/18 Unknown Rx Hydroxyzine HCl [hydrOXYzine] 50 mg PO TID 05/14/18 07/09/18 Unknown History traMADol [Ultram 50 MG tab] 50 mg PO Q6HR PRN 05/14/18 07/09/18 Unknown History Active Meds: Active Medications Acetaminophen (Tylenol) 500 mg PO Q6H PRN PRN Reason: Pain, Mild (1-3) Last Admin: 07/08/18 22:11 Dose: 500 mg Documented by: Aspirin (Ecotrin) 325 mg PO QDAY [facility] Last Admin: 07/08/18 10:03 Dose: 325 mg Documented by: Atorvastatin Calcium (Lipitor) 40 mg PO QHS [facility] Last Admin: 07/08/18 22:01 Dose: 40 mg Documented by: Bisacodyl (Dulcolax) 10 mg [place] QDAY PRN PRN Reason: Constipation Calcium Carbonate/Glycine (Tums) 1,000 mg PO Q6H PRN PRN Reason: Indigestion Last Admin: 07/09/18 05:10 Dose: 1,000 mg Documented by: Dextrose (D50w (25gm) Syringe) 50 ml IV PRN PRN PRN Reason: Hypoglycemia Diphenhydramine HCl (Benadryl) 25 mg PO Q8H PRN PRN Reason: Itching Last Admin: 07/09/18 07:09 Dose: 25 mg Documented by: Docusate Sodium (Colace) 100 mg PO BID [facility] Last Admin: 07/08/18 22:05 Dose: 100 mg Documented by: Furosemide (Lasix) 40 mg PO QDAY [facility] Last Admin: 07/08/18 10:03 Dose: 40 mg Documented by: Heparin Sodium (Porcine) (Heparin) 5,000 unit SUB-Q Q8HR [facility] Last Admin: 07/09/18 05:11 Dose: 5,000 unit Documented by: Sodium Chloride (Nacl 0.9%) 100 mls @ 999 mls/hr IV JEANINE PRN PRN Reason: Hypotension Insulin Human Lispro (Humalog) 0 unit SUB-Q ACHS [facility]; Protocol Last Admin: 07/08/18 23:05 Dose: Not Given Documented by: Metoprolol Tartrate (Lopressor) 25 mg PO BID [facility] Last Admin: 07/08/18 22:05 Dose: 25 mg Documented by: Ondansetron HCl (Zofran Odt) 4 mg PO Q8H PRN PRN Reason: Nausea And Vomiting Sevelamer Carbonate (Renvela) 2,400 mg PO AC [facility] Last Admin: 07/08/18 16:37 Dose: Not Given Documented by: Review of Systems Constitutional: no weight loss, no weight gain Ears, nose, mouth and throat: no ear discharge, no tinnitis, no dysphagia, no hoarseness, no voice changes Cardiovascular: no chest pain, no orthopnea Respiratory: no cough, no wheezing Gastrointestinal: no abdominal pain Genitourinary Male: no dysuria Rectal: no pain, no bleeding Musculoskeletal: no neck stiffness, no morning stiffness Integumentary: no rash Neurological: weakness (rightsided weakness) Psychiatric: no anxiety, no memory loss Endocrine: no cold intolerance, no heat intolerance Hematologic/Lymphatic: no easy bruising, no easy bleeding Allergic/Immunologic: no urticaria Exam - Constitutional Vitals: Temp Pulse Resp BP Pulse Ox 97.6 F 73 18 131/80 98 07/09/18 04:48 07/09/18 04:48 07/09/18 04:48 07/09/18 04:48 07/09/18 04:48 General appearance: Present: no acute distress, well-nourished - EENT Eyes: Present: PERRL ENT: hearing intact, clear oral mucosa - Neck Neck: Present: supple, normal ROM - Respiratory Respiratory effort: normal Respiratory: bilateral: CTA - Cardiovascular Heart Sounds: Present: S1 & S2. Absent: rub, click - Extremities Extremities: pulses symmetrical, No edema Peripheral Pulses: within normal limits - Abdominal General gastrointestinal: Present: soft, non-tender, non-distended, normal bowel sounds - Integumentary Integumentary: Present: clear, warm, dry - Musculoskeletal Musculoskeletal: right sided weakness - Psychiatric Psychiatric: appropriate mood/affect, intact judgment & insight - Neurologic Neurologic: CNII-XII intact, moves all extremities Results - Labs CBC & Chem 7: 07/08/18 06:55 07/10/18 04:15 Labs: Abnormal lab results 07/08/18 Range/Units 16:16 POC Glucose 116 H (70-105) Assessment and Plan Acute CVA, - s/p tPA treatmet, cont PT/OT - cont aspirin and statin, monitor BP. hyperkalemia, monitor BMP, should correct with HD, kayexalate as needed Peripheral neuropathy. neurontin if needed ESRD. Continue Friday, nephrology following Anemia chronic disease, h/h stable Diabetes mellitus type 2 - insulin regimen adjust as needed CAD. Patient with coronary artery disease status post multivessel PCI. cont medical mx - thank you for the consult, will follow with you
[2018-07-09] MEDS: LASIX PO SCH (11:29)
[2018-07-09] MEDS: ECOTRIN PO SCH (11:30)
[2018-07-09] MEDS: COLACE PO SCH ×2 (11:30→22:38)
[2018-07-09] MEDS: RENVELA PO SCH ×3 (11:30→17:31)
[2018-07-09] MEDS: LOPRESSOR PO SCH ×2 (11:30→22:40)
[2018-07-09] MEDS: HumaLOG SUB-Q SCH ×4 (11:51→22:39)
--- NOTE | 2018-07-09 11:59 | Progress Note ---
Subjective Date of service: 07/09/18 Principal diagnosis: CVA Interval history: 63-year-old [id number] male who developed weakness during dialysis was sent to the hospital. 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 Afterwards he is monitored closely in the ICU per protocol. Once stable he was transferred to the floor and seen by therapy. He currently has dysarthria and states he may have some issues with word finding. Most recently he was on a dysphagia diet and we will have swallowing assessed to ensure his he is safe. He has a history of seizures but is not taking any AEDs. He states his last seizure activity was years ago by his account during dialysis. He still has significant right-sided weakness as well as a right facial droop. After he was medically cleared he was transferred for further rehabilitation. All available outside hospital records were reviewed, most recent hospital stays here have also been reviewed. Discussed smoking cessation, alcohol sensation, and secondary stroke prevention and prognosis with the patient. We'll start therapy evaluations tomorrow morning and hope to see further return of function. Hospitalist group and nephrology have both been consulted and I appreciate their assistance. Patient is participating in therapy and making reasonable progress. Taking rest breaks as needed. +BM. Denies pain, chest pain, palpitations, dyspnea, cough, N/V or diarrhea. Discussed in team conference. GL[employer] FINISHER stated swallowing is improved and they're upgrading him to regular diet. Dysarthria appears improved. Decreased range of motion with right upper extremity as before and OT suspects rotator cuff involvement as well as arthritis. Walking with rolling walker and improved today from yesterday. Continue to monitor progress for safe discharge home. All records, vitals, labs and medications were reviewed. No other issues per patient, nursing or therapy. Objective - Exam Narrative Exam: MUSCULOSKELETAL SPECIALTY EXAM CONSTITUTIONAL: Well developed, well nourished, appropriately groomed. RIGHT hand dominant. RESPIRATORY: Clear to auscultation bilaterally, no increased work of breathing CARDIOVASCULAR: Regular Rate/ Rhythm, no swelling, edema or tenderness in BUE or BLE. All extremities warm. Palpable thrill in left arm GI: + bowel sounds, soft, NTTP, nondistended, protuberant. INTEGUMENTARY: Normal, no lesion, rash, masses or bruising noted in extremities. MUSCULOSKELETAL: BUE and BLE normal without defect, subluxation, effusion or TTP. Mild crepitus on RUE. SA EF WE EE FF FA HF KE ADF EHL APF R 3/5 2/5 2/5 2/5 2/5 2/5 2/5 2/5 3/5 3/5 3/5 L 4/5 4/5 4/5 4/5 4/5 4/5 4/5 4/5 4/5 4/5 4/5 ROM - decreased on right Tone - normal NEURO: Right facial droop,Tongue protrudes midline to possibly left (likely from previous stroke), Otherwise CN II-XII grossly intact Sensation intact in all extremities without extinction. No tremor noted in 4 extremities. Naming and repetition intact. Follows 2 step commands. Aphasia not appreciated Dysarthria present slightly Dysphagia upgraded to regular diet Neglect not appreciated POSTURE and GAIT: Sitting posture good. Balance leans right. Gait with RW - initially step to gait then started step thru, slowed and fairly steady in the beginning PSYCH: Alert, orientated x3, affect appears euthymic. Insight appears intact. - Constitutional Vitals: Vital Signs - 12hr 07/09/18 07/09/18 00:06 04:48 Temperature 36.7 C 36.4 C Pulse Rate 79 73 Respiratory 16 18 Rate Blood Pressure 171/98 Blood Pressure 131/80 [Left] O2 Sat by Pulse 100 98 Oximetry - Allied health notes Allied health notes reviewed: nursing, PT, ST, OT FIMS assessment as documented by PT/OT/ST: Grooming Patient cleans teeth/dentures: Yes Patient ambrocio/brushes hair: Yes Patient washes, rinses and Yes dries face: Patient washes, rinses and Yes dries hands: Patient shaves: Yes Patient performs (no make-up/ 05/14 (100%) shaving): Grooming FIM Score 4. Minimal Assistance (Patient = 75% or more. Needs touching.) Toileting Toileting Device Commode over Toilet Patient able to: Adjust clothes before,Clean self,Adjust clothes after Patient able to perform: 3/3 (100%) Toileting FIM Score 4. Minimal Assistance (Patient = 75% or more. Needs touching.) Social interaction/Memory/Problem solving Social Interaction FIM Score 6. Mod. [place] (Mostly appropriate. May need meds. No supv.) Memory FIM Score 7. Complete [place] (Remembers people and routines.) Problem Solving FIM Score 6. Mod. [place] (Mild difficulty or needs more time w/ complex.) Transfers Mode of Locomotion: Walking Bed/Chair/Wheelchair Transfers 3. Moderate Assistance (Patient = 50% or more. FIM Score Some lifting.) Toilet Transfers FIM Score 4. Minimal Assistance (Patient = 75% or more. Needs touching.) Patient transferred to: Shower Shower Transfers FIM Score 4. Minimal Assistance (Patient = 75% or more. Needs touching.) Locomotion- Stairs Stairs FIM Score 0. Activity does not occur Locomotion- walk/wheelchair Most Frequent Mode of Walking Locomotion: Ambulation Distance 20 Walking FIM Score 1. Total Assistance (Pt. < 25%, 2 or more person assist, or <50 ft.) Wheelchair Propulsion Distance 50 Wheelchair FIM Score 2. Maximal Assistance (Patient = 25% or more. Minimum of 50 ft.) Eating Eating FIM Score 5. Supervision/Set-Up (Needs help w/ containers, cutting meat, etc.) Dressing-Upper body Patient retrieves clothing No items: Patient applies/removes UE n/a prosthesis or orthosis: Upper Body Dressing FIM Score 5. Supv./Set-Up ([place] sets out clothes or applies pros./orth.) Dressing-lower body Patient retrieves clothing No items: Patient applies/removes LE n/a prosthesis or orthosis: Lower Body Dressing FIM Score 4. Minimal Assistance (Patient = 75% or more. Needs touching.) - Labs CBC & Chem 7: 07/08/18 06:55 07/08/18 06:55 Labs: Laboratory Results - last 72 hr 07/07/18 07/08/18 07/08/18 18:14 06:55 06:55 WBC 7.8 RBC 3.89 Hgb 13.2 Hct 39.6 MCV 102 H MCH 34 H MCHC 33 RDW 15.5 H Plt Count 202 Lymph % (Auto) 9.2 L [place] % (Auto) 11.1 H Eos % (Auto) 1.7 Baso % (Auto) 1.3 Lymph # 0.7 L [place] # 0.9 H Eos # 0.1 Baso # 0.1 Seg Neutrophils % 76.7 H Seg Neutrophils # 5.9 Sodium 138 Potassium 5.1 H Chloride 88.7 L Carbon Dioxide 31 H Anion Gap 23 BUN 48 H Creatinine 10.2 H Estimated GFR 6 BUN/Creatinine Ratio 5 Glucose 97 POC Glucose 99 Hemoglobin A1c Calcium 9.8 Total Bilirubin 0.30 AST 35 ALT 31 Alkaline Phosphatase 63 Total Protein 7.8 Albumin 3.9 Albumin/Globulin Ratio 1.0 Triglycerides 52 Cholesterol 141 LDL Cholesterol Direct 46 L HDL Cholesterol 79 H Cholesterol/HDL Ratio 1.78 Vitamin B12 07/08/18 07/08/18 07/08/18 06:55 07:26 09:18 WBC RBC Hgb Hct MCV MCH MCHC RDW Plt Count Lymph % (Auto) [place] % (Auto) Eos % (Auto) Baso % (Auto) Lymph # [place] # Eos # Baso # Seg Neutrophils % Seg Neutrophils # Sodium Potassium Chloride Carbon Dioxide Anion Gap BUN Creatinine Estimated GFR BUN/Creatinine Ratio Glucose POC Glucose 86 Hemoglobin A1c 4.7 Calcium Total Bilirubin AST ALT Alkaline Phosphatase Total Protein Albumin Albumin/Globulin Ratio Triglycerides Cholesterol LDL Cholesterol Direct HDL Cholesterol Cholesterol/HDL Ratio Vitamin B12 1706 H 07/08/18 07/08/18 11:27 16:16 WBC RBC Hgb Hct MCV MCH MCHC RDW Plt Count Lymph % (Auto) [place] % (Auto) Eos % (Auto) Baso % (Auto) Lymph # [place] # Eos # Baso # Seg Neutrophils % Seg Neutrophils # Sodium Potassium Chloride Carbon Dioxide Anion Gap BUN Creatinine Estimated GFR BUN/Creatinine Ratio Glucose POC Glucose 91 116 H Hemoglobin A1c Calcium Total Bilirubin AST ALT Alkaline Phosphatase Total Protein Albumin Albumin/Globulin Ratio Triglycerides Cholesterol LDL Cholesterol Direct HDL Cholesterol Cholesterol/HDL Ratio Vitamin B12 Assessment and Plan 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 Monitor for changes and neuro status. Monitor for post stroke depression as well as shoulder-hand syndrome. I69.322 dysarthria: Speech and language pathology will assess in assist patient with return of function including strategies to help project voice and improved speech intelligibility. I69.391 dysphagia: Advanced to regular diet by [employer]ER,monitor progress Z73.6 ADL dysfunction: OT will work on improving ability to perform ADLs (including assistive devices) to increase independence and decrease caregiver burden and improve functional transfers and mobility training. R26.2 Difficulty walking: PT will work on gait training and proper use of assistive devices and advance as appropriate to use of stairs and outside ambulation on uneven surfaces. R26.81 Unsteadiness on feet: PT will work on improving static and dynamic sitting and standing balance as well as proper use of assistive devices to decrease risk of falls. R26.89 Abnormality of gait: PT will work to improve safety and efficiency of gait through neuromotor training and gait training along with instruction on proper use of assistive devices. M62.81 Muscle weakness: PT & OT will work on strengthening exercises to improve functional strength including mixture of closed and open kinetic chain exercise s. R53.81 Debility: PT & OT will work on improving overall functional status to improve participation with ADLs, mobility and social involvement. R53.83 Fatigue: PT & OT will work on improving endurance through aerobic exercises and therapeutic activity while monitoring patients tolerance for activity and vital signs as needed. Right shoulder pain - XR to look for OA changes Consults: Internal medicine consulted for management of diabetes, hypertension, CHF. Appreciate their assistance Nephrology consulted for management of end-stage renal disease and electrolytes. Appreciate their assistance DVT ppx: Heparin Pain: Continue physical modalities in therapy and pain medications as needed to achieve functional pain control. Sleep: Monitor and address as needed. Bowel: Monitor and address as needed. Appetite: Monitor and address as needed. Discharge planning: Pending therapy progress and care plan meeting. Will continue discussion with therapy team, SW, patient and family. Restrictions/ Precautions: Falls, seizures WB status: FWB Functional Hx: ADLs: Independent Cognition: Independent Mobility: Cane, single-point Barriers to Discharge: Decreased mobility and ability to perform self care, balance deficits, weakness, dysphagia, dysarthria Estimated Length of Stay: 1421 days Discharge Destination: Home with family
--- NOTE | 2018-07-09 14:47 | XRay Report ---
RIGHT SHOULDER, 3 VIEWS: HISTORY: right shoulder pain. Borderline osteopenia. Mild osteoarthritic changes at the right shoulder appear stable since 07/11/17 exam. No evidence for acute fracture, malalignment or bone lesion. The soft tissues are unremarkable. IMPRESSION: Borderline osteopenia. Mild osteoarthritis.
[2018-07-09] MEDS: PEPCID PO SCH (15:33)
--- NOTE | 2018-07-09 16:35 | Progress Note ---
Assessment and Plan - Patient Problems (1) Hyperkalemia Current Visit: No Status: Acute Plan to address problem: cont 2g k renal diet. cont HD on MWF schedule (2) Hypertensive chronic kidney disease with stage 5 chronic kidney disease or end stage renal disease Current Visit: Yes Status: Acute Plan to address problem: monitor BP on current meds. (3) End stage renal disease on dialysis Current Visit: No Status: Chronic Plan to address problem: cont HD on MWF schedule (4) Acute cerebrovascular accident Current Visit: Yes Status: Acute Plan to address problem: s/p tPA treatment, on ASA, cont PT/OT Subjective Date of service: 07/09/18 Principal diagnosis: CVA Interval history: Pt awake, alert, in NAD Objective - Vital Signs Vital signs: Vital Signs - 12hr 07/09/18 04:48 Temperature 97.6 F Pulse Rate 73 Respiratory 18 Rate Blood Pressure 131/80 [Left] O2 Sat by Pulse 98 Oximetry - General Appearance General appearance: well-developed, well-nourished, appears stated age EENT: ATNC, PERRL, mucous membranes moist Neck: no JVD Respiratory: Present: Clear to Ascultation Cardiology: regular, S1S2 Gastrointestinal: normoactive bowel sounds Integumentary: no rash, other (no edema ) Neurologic: no focal deficit, alert and oriented x3, strength 5/5, CN 3-12 intact Psychiatric: mood/affect appropriate, cooperative - Lab 07/08/18 06:55 07/08/18 06:55 Most recent lab results Calcium 9.8 mg/dL (8.4-10.2) 07/08/18 06:55 Medications & Allergies - Medications Allergies/Adverse Reactions: Allergies No Known Allergies Allergy (Verified 02/28/17 00:21) Home Medications: Home Medications Medication Instructions Recorded Confirmed Last Taken Type Rosuvastatin Calcium [Crestor] 20 mg PO QHS 07/03/17 05/13/18 1 Day Ago History ~03/10/18 Sevelamer Carbonate [Renvela] 2,400 mg PO TIDWM 07/03/17 05/13/18 1 Day Ago History ~03/10/18 Aspirin [Aspirin BABY CHEW TAB] 81 mg PO QDAY #30 tab.chew 07/05/17 05/13/18 1 Day Ago Rx ~03/10/18 B Complex 11/Folic/C/Biot/Zinc 1 each PO DAILY 02/13/18 05/13/18 1 Day Ago History [Dialyvite with Zinc Tablet] ~03/10/18 Ergocalciferol (Vitamin D2) 50,000 unit PO QWEEK 02/13/18 05/13/18 1 Day Ago History [Drisdol] ~03/10/18 Omeprazole 20 mg PO QDAY 02/13/18 05/13/18 1 Day Ago History ~03/10/18 ISOSORBIDE MONOnitrate [Imdur ER] 30 mg PO DAILY #30 tablet 02/14/18 05/13/18 1 Day Ago Rx ~03/10/18 Metoprolol [Lopressor TAB] 12.5 mg PO BID #30 tablet 02/14/18 05/13/18 1 Day Ago Rx ~03/10/18 Gabapentin [Neurontin] 100 mg PO BID #60 capsule 05/03/18 05/13/18 Unknown Rx Verapamil [Calan] 80 mg PO Q8HR #90 tablet 05/03/18 05/13/18 Unknown Rx Hydroxyzine HCl [hydrOXYzine] 50 mg PO TID 05/14/18 05/14/18 Unknown History traMADol [Ultram 50 MG tab] 50 mg PO Q6HR PRN 05/14/18 05/14/18 Unknown History Active Medications: Generic Name Dose Route Start Last Admin Trade Name Freq PRN Reason Stop Dose Admin Acetaminophen 500 mg 07/07/18 16:14 07/08/18 22:11 Tylenol PO 500 mg Q6H PRN Administration Pain, Mild (1-3) Al Hydrox/Mg Hydrox/Simethicone 15 ml 07/09/18 14:01 Alum-Mag Hydrox-Simeth [phone]/5ml PO Q4H PRN Indigestion Aspirin 325 mg 07/08/18 08:00 07/09/18 11:30 Ecotrin PO 325 mg QDAY GORDO Administration Atorvastatin Calcium 40 mg 07/07/18 21:00 07/08/18 22:01 Lipitor PO 40 mg QHS GORDO Administration Bisacodyl 10 mg 07/07/18 16:14 Dulcolax CO QDAY PRN Constipation Calcium Carbonate/Glycine 1,000 mg 07/08/18 11:30 07/09/18 05:10 Tums PO 1,000 mg Q6H PRN Administration Indigestion Dextrose 50 ml 07/07/18 15:48 D50w (25gm) Syringe IV PRN PRN Hypoglycemia Diphenhydramine HCl 25 mg 07/08/18 23:02 07/09/18 07:09 Benadryl PO 25 mg Q8H PRN Administration Itching Docusate Sodium 100 mg 07/07/18 22:00 07/09/18 11:30 Colace PO 100 mg BID GORDO Administration Famotidine 20 mg 07/09/18 15:00 Pepcid PO QDAY GORDO Furosemide 40 mg 07/08/18 08:00 07/09/18 11:29 Lasix PO 40 mg QDAY [facility] Administration Heparin Sodium (Porcine) 5,000 unit 07/07/18 22:00 07/09/18 05:11 Heparin SUB-Q 5,000 unit Q8HR GORDO Administration Sodium Chloride 100 mls @ 999 mls/hr 07/08/18 10:00 Nacl 0.9% IV JEANINE PRN Hypotension Insulin Human Lispro 0 unit 07/07/18 16:30 07/08/18 23:05 Humalog SUB-Q Not Given ACHS [facility] Protocol Metoprolol Tartrate 25 mg 07/07/18 22:00 07/09/18 11:30 Lopressor PO 25 mg BID [facility]ORD[facility] Administration Ondansetron HCl 4 mg 07/07/18 16:17 Zofran Odt PO Q8H PRN Nausea And Vomiting Sevelamer Carbonate 2,400 mg 07/08/18 07:30 07/09/18 11:30 Renvela PO 2,400 mg AC [facility]ORD[facility] Administration
[2018-07-09] MEDS: TYLENOL PO PRN (17:32)
[2018-07-10 05:27] LABS: Calcium 10.2 mg/dL (8.4-10.2)
[2018-07-10] MEDS: TYLENOL PO PRN (05:27)
[2018-07-10] MEDS: HEPARIN SUB-Q SCH ×3 (05:27→22:04)
[2018-07-10] MEDS: HumaLOG SUB-Q SCH ×3 (09:13→17:17)
[2018-07-10] MEDS: RENVELA PO SCH ×3 (09:57→17:27)
[2018-07-10] MEDS: LASIX PO SCH (09:57)
[2018-07-10] MEDS: COLACE PO SCH ×2 (09:57→22:03)
[2018-07-10] MEDS: BENADRYL PO PRN ×2 (09:57→22:02)
[2018-07-10] MEDS: PEPCID PO SCH (09:58)
[2018-07-10] MEDS: ECOTRIN PO SCH (09:58)
[2018-07-10] MEDS: LOPRESSOR PO SCH ×2 (10:15→22:02)
--- NOTE | 2018-07-10 14:16 | Progress Note ---
Assessment and Plan - Patient Problems (1) Hyperkalemia Current Visit: No Status: Acute Plan to address problem: HD today using 2K bath, cont 2g k renal diet. 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 (3) End stage renal disease on dialysis Current Visit: No Status: Chronic Plan to address problem: cont HD on MWF schedule (4) Acute cerebrovascular accident Current Visit: Yes Status: Acute Plan to address problem: s/p tPA treatment, on ASA, cont PT/OT Subjective Date of service: 07/10/18 Principal diagnosis: CVA Interval history: Pt seen and examined during HD, awake, alert, in NAD Objective - Vital Signs Vital signs: Vital Signs - 12hr 07/10/18 07/10/18 07/10/18 04:45 10:00 10:15 Temperature 98.0 F Pulse Rate 84 78 Respiratory 18 Rate Respiratory 17 Rate [Back] Respiratory 17 Rate [Chest] Blood Pressure 175/94 Blood Pressure 167/98 [Left] O2 Sat by Pulse 97 Oximetry - General Appearance General appearance: well-developed, well-nourished, appears stated age EENT: ATNC, PERRL Neck: no JVD Respiratory: Present: Clear to Ascultation Cardiology: regular, S1S2 Gastrointestinal: normoactive bowel sounds Integumentary: no rash, other (no edema ) Neurologic: no focal deficit, alert and oriented x3, strength 5/5, CN 3-12 intact Psychiatric: mood/affect appropriate, cooperative - Lab 07/08/18 06:55 07/10/18 04:15 Most recent lab results Calcium 10.2 mg/dL (8.4-10.2) 07/10/18 04:15 Medications & Allergies - Medications Allergies/Adverse Reactions: Allergies No Known Allergies Allergy (Verified 02/28/17 00:21) Home Medications: Home Medications Medication Instructions Recorded Confirmed Last Taken Type Rosuvastatin Calcium [Crestor] 20 mg PO QHS 07/03/17 07/09/18 1 Day Ago History ~03/10/18 Sevelamer Carbonate [Renvela] 2,400 mg PO TIDWM 07/03/17 07/09/18 1 Day Ago His tory ~03/10/18 Aspirin [Aspirin BABY CHEW TAB] 81 mg PO QDAY #30 tab.chew 07/05/17 07/09/18 1 Day Ago Rx ~03/10/18 B Complex 11/Folic/C/Biot/Zinc 1 each PO DAILY 02/13/18 07/09/18 1 Day Ago History [Dialyvite with Zinc Tablet] ~03/10/18 Ergocalciferol (Vitamin D2) 50,000 unit PO QWEEK 02/13/18 07/09/18 1 Day Ago History [Drisdol] ~03/10/18 Omeprazole 20 mg PO QDAY 02/13/18 07/09/18 1 Day Ago History ~03/10/18 ISOSORBIDE MONOnitrate [Imdur ER] 30 mg PO DAILY #30 tablet 02/14/18 07/09/18 1 Day Ago Rx ~03/10/18 Metoprolol [Lopressor TAB] 12.5 mg PO BID #30 tablet 02/14/18 07/09/18 1 Day Ago Rx ~03/10/18 Gabapentin [Neurontin] 100 mg PO BID #60 capsule 05/03/18 07/09/18 Unknown Rx Verapamil [Calan] 80 mg PO Q8HR #90 tablet 05/03/18 07/09/18 Unknown Rx Hydroxyzine HCl [hydrOXYzine] 50 mg PO TID 05/14/18 07/09/18 Unknown History traMADol [Ultram 50 MG tab] 50 mg PO Q6HR PRN 05/14/18 07/09/18 Unknown History Active Medications: Generic Name Dose Route Start Last Admin Trade Name Freq PRN Reason Stop Dose Admin Acetaminophen 500 mg 07/07/18 16:14 07/10/18 05:27 Tylenol PO 500 mg Q6H PRN Administration Pain, Mild (1-3) Al Hydrox/Mg Hydrox/Simethicone 15 ml 07/09/18 14:01 Alum-Mag Hydrox-Simeth 125-390-98nk/5ml PO Q4H PRN Indigestion Aspirin 325 mg 07/08/18 08:00 07/10/18 09:58 Ecotrin PO 325 mg QDAY GORDO Administration Atorvastatin Calcium 40 mg 07/07/18 21:00 07/09/18 22:38 Lipitor PO 40 mg QHS GORDO Administration Bisacodyl 10 mg 07/07/18 16:14 Dulcolax OR QDAY PRN Constipation Calcium Carbonate/Glycine 1,000 mg 07/08/18 11:30 07/09/18 05:10 Tums PO 1,000 mg Q6H PRN Administration Indigestion Dextrose 50 ml 07/07/18 15:48 D50w (25gm) Syringe IV PRN PRN Hypoglycemia Diphenhydramine HCl 25 mg 07/08/18 23:02 07/10/18 09:57 Benadryl PO 25 mg Q8H PRN Administration Itching Docusate Sodium 100 mg 07/07/18 22:00 07/10/18 09:57 Colace PO 100 mg BID GORDO Administration Famotidine 20 mg 07/09/18 15:00 07/10/18 09:58 Pepcid PO 20 mg QDAY GORD[facility] Administration Furosemide 40 mg 07/08/18 08:00 07/10/18 09:57 Lasix PO 40 mg QDAY G[facility] Administration Heparin Sodium (Porcine) 5,000 unit 07/07/18 22:00 07/10/18 05:27 Heparin SUB-Q 5,000 unit Q8HR GORDO Administration Sodium Chloride 100 mls @ 999 mls/hr 07/08/18 10:00 Nacl 0.9% IV JEANINE PRN Hypotension Insulin Human Lispro 0 unit 07/07/18 16:30 07/10/18 09:13 Humalog SUB-Q Not Given ACHS [facility] Protocol Metoprolol Tartrate 25 mg 07/07/18 22:00 07/10/18 10:15 Lopressor PO 25 mg BID GORDO Administration Ondansetron HCl 4 mg 07/07/18 16:17 Zofran Odt PO Q8H PRN Nausea And Vomiting Sevelamer Carbonate 2,400 mg 07/08/18 07:30 07/10/18 09:57 Renvela PO 2,400 mg AC GORDO Administration
--- NOTE | 2018-07-10 16:11 | Progress Note ---
Assessment and Plan Acute CVA, - s/p tPA treatmet, cont PT/OT - cont aspirin and statin, monitor BP. hyperkalemia, monitor BMP, should correct with HD, kayexalate as needed Peripheral neuropathy. neurontin if needed ESRD. Continue Friday, nephrology following Anemia chronic disease, h/h stable Diabetes mellitus type 2 - insulin regimen adjust as needed CAD. Patient with coronary artery disease status post multivessel PCI. cont medical mx - thank you for the consult, will follow with you - ordered hydroxyzine for itching Subjective Date of service: 07/10/18 Principal diagnosis: CVA Interval history: Patient seen and examined no acute issue, tolerating rehab c/o itching during HD Objective - Constitutional Vitals: Vital Signs - 12hr 07/10/18 07/10/18 07/10/18 04:45 08:00 10:00 Temperature 98.0 F 98.0 F Pulse Rate 84 78 Respiratory 18 18 Rate Respiratory 17 Rate [Back] Respiratory 17 Rate [Chest] Blood Pressure Blood Pressure 167/98 175/94 [Left] O2 Sat by Pulse 97 97 Oximetry 07/10/18 07/10/18 10:15 12:00 Temperature 98.0 F Pulse Rate 78 71 Respiratory 18 Rate Respiratory Rate [Back] Respiratory Rate [Chest] Blood Pressure 175/94 158/92 Blood Pressure [Left] O2 Sat by Pulse Oximetry General appearance: Present: no acute distress, well-nourished - EENT Eyes: PERRL, EOM intact ENT: hearing intact, clear oral mucosa Ears: bilateral: normal - Neck Neck: supple, normal ROM - Respiratory Respiratory effort: normal Respiratory: bilateral: CTA - Cardiovascular Rhythm: regular Heart Sounds: Present: S1 & S2. Absent: gallop, rub Extremities: pulses intact, No edema, normal color, Full ROM - Gastrointestinal General gastrointestinal: Present: soft, non-tender, non-distended, normal bowel sounds - Integumentary Integumentary: clear, warm, dry - Musculoskeletal Musculoskeletal: right sided weakness - Neurologic Neurologic: moves all extremities - Psychiatric Psychiatric: memory intact, appropriate mood/affect, intact judgment & insight - Labs CBC & Chem 7: 07/08/18 06:55 07/10/18 04:15 Labs: Abnormal lab results 07/09/18 07/10/18 Range/Units 20:59 04:15 Potassium 5.6 H (3.6-5.0) mmol/L Chloride 95.0 L (98-107) mmol/L BUN 43 H (9-20) mg/dL Creatinine 9.5 H (0.8-1.5) mg/dL POC Glucose 110 H (70-105)
[2018-07-10] MEDS ORDERED: NACL 0.9 (PRIMING MACHINE ONLY DIALYSIS) MC ONE (18:03)
[2018-07-11] MEDS: TYLENOL PO PRN ×2 (03:05→10:06)
[2018-07-11] MEDS: HumaLOG SUB-Q SCH ×4 (04:08→18:14)
[2018-07-11] MEDS: ALUM-MAG HYDROX-SIMETH 200-200-20MG/5ML PO PRN ×2 (04:12→10:02)
[2018-07-11] MEDS: HEPARIN SUB-Q SCH ×3 (06:48→22:00)
--- NOTE | 2018-07-11 08:22 | Progress Note ---
Assessment and Plan - Patient Problems (1) Hyperkalemia Current Visit: No Status: Acute Plan to address problem: cont 2g k renal diet, cont HD on MWF schedule (2) Hypertensive chronic kidney disease with stage 5 chronic kidney disease or end stage renal disease Current Visit: Yes Status: Acute Plan to address problem: monitor BP on current meds. (3) End stage renal disease on dialysis Current Visit: No Status: Chronic Plan to address problem: cont HD on MWF schedule (4) Acute cerebrovascular accident Current Visit: Yes Status: Acute Plan to address problem: s/p tPA treatment, on ASA, cont PT/OT Subjective Date of service: 07/11/18 Principal diagnosis: CVA Interval history: Pt awake, alert, c/o abdominal bloating. gas x given Objective - Vital Signs Vital signs: Vital Signs - 12hr 07/10/18 07/11/18 07/11/18 22:02 04:53 07:11 Temperature 98.5 F 97.1 F L Pulse Rate 90 78 Respiratory 19 18 Rate Blood Pressure 126/75 165/95 167/95 Blood Pressure [Left] O2 Sat by Pulse 97 Oximetry 07/11/18 07:38 Temperature 97.1 F L Pulse Rate 88 Respiratory 18 Rate Blood Pressure Blood Pressure 167/95 [Left] O2 Sat by Pulse 97 Oximetry - General Appearance General appearance: well-developed, well-nourished, appears stated age EENT: ATNC, PERRL, mucous membranes moist Neck: no JVD Respiratory: Present: Clear to Ascultation Cardiology: regular, S1S2 Gastrointestinal: no tenderness, distended Integumentary: no rash, other (no edema ) Neurologic: no focal deficit, alert and oriented x3, strength 5/5, CN 3-12 int act Psychiatric: mood/affect appropriate, cooperative - Lab 07/08/18 06:55 07/11/18 04:27 Most recent lab results Calcium 10.0 mg/dL (8.4-10.2) 07/11/18 04:27 Medications & Allergies - Medications Allergies/Adverse Reactions: Allergies No Known Allergies Allergy (Verified 02/28/17 00:21) Home Medications: Home Medications Medication Instructions Recorded Confirmed Last Taken Type Rosuvastatin Calcium [Crestor] 20 mg PO QHS 07/03/17 07/09/18 1 Day Ago History ~03/10/18 Sevelamer Carbonate [Renvela] 2,400 mg PO TIDWM 07/03/17 07/09/18 1 Day Ago History ~03/10/18 Aspirin [Aspirin BABY CHEW TAB] 81 mg PO QDAY #30 tab.chew 07/05/17 07/09/18 1 Day Ago Rx ~03/10/18 B Complex 11/Folic/C/Biot/Zinc 1 each PO DAILY 02/13/18 07/09/18 1 Day Ago History [Dialyvite with Zinc Tablet] ~03/10/18 Ergocalciferol (Vitamin D2) 50,000 unit PO QWEEK 02/13/18 07/09/18 1 Day Ago History [Drisdol] ~03/10/18 Omeprazole 20 mg PO QDAY 02/13/18 07/09/18 1 Day Ago History ~03/10/18 ISOSORBIDE MONOnitrate [Imdur ER] 30 mg PO DAILY #30 tablet 02/14/18 07/09/18 1 Day Ago Rx ~03/10/18 Metoprolol [Lopressor TAB] 12.5 mg PO BID #30 tablet 02/14/18 07/09/18 1 Day Ago Rx ~03/10/18 Gabapentin [Neurontin] 100 mg PO BID #60 capsule 05/03/18 07/09/18 Unknown Rx Verapamil [Calan] 80 mg PO Q8HR #90 tablet 05/03/18 07/09/18 Unknown Rx Hydroxyzine HCl [hydrOXYzine] 50 mg PO TID 05/14/18 07/09/18 Unknown History traMADol [Ultram 50 MG tab] 50 mg PO Q6HR PRN 05/14/18 07/09/18 Unknown History Active Medications: Generic Name Dose Route Start Last Admin Trade Name Freq PRN Reason Stop Dose Admin Acetaminophen 500 mg 07/07/18 16:14 07/11/18 03:05 Tylenol PO 500 mg Q6H PRN Administration Pain, Mild (1-3) Al Hydrox/Mg Hydrox/Simethicone 15 ml 07/09/18 14:01 07/11/18 04:12 Alum-Mag Hydrox-Simeth 252-176-61nd/5ml PO 15 ml Q4H PRN Administration Indigestion Aspirin 325 mg 07/08/18 08:00 07/10/18 09:58 Ecotrin PO 325 mg QDAY GORDO Administration Atorvastatin Calcium 40 mg 07/07/18 21:00 07/10/18 22:03 Lipitor PO 40 mg QHS GORDO Administration Bisacodyl 10 mg 07/07/18 16:14 Dulcolax DE QDAY PRN Constipation Calcium Carbonate/Glycine 1,000 mg 07/08/18 11:30 07/09/18 05:10 Tums PO 1,000 mg Q6H PRN Administration Indigestion Dextrose 50 ml 07/07/18 15:48 D50w (25gm) Syringe IV PRN PRN Hypoglycemia Diphenhydramine HCl 25 mg 07/08/18 23:02 07/10/18 22:02 Benadryl PO 25 mg Q8H PRN Administration Itching Docusate Sodium 100 mg 07/07/18 22:00 07/10/18 22:03 Colace PO 100 mg BID GORDO Administration Famotidine 20 mg 07/09/18 15:00 07/10/18 09:58 Pepcid PO 20 mg QDAY GORDO Administration Furosemide 40 mg 07/08/18 08:00 07/10/18 09:57 Lasix PO 40 mg QDAY [facility] Administration Heparin Sodium (Porcine) 5,000 unit 07/07/18 22:00 07/11/18 06:48 Heparin SUB-Q 5,000 unit Q8HR GORDO Administration Hydroxyzine HCl 25 mg 07/10/18 17:06 Atarax PO Q6H PRN Itching Sodium Chloride 100 mls @ 999 mls/hr 07/08/18 10:00 Nacl 0.9% IV JEANINE PRN Hypotension Insulin Human Lispro 0 unit 07/07/18 16:30 07/11/18 04:08 Humalog SUB-Q Not Given ACHS [facility] Protocol Metoprolol Tartrate 25 mg 07/07/18 22:00 07/10/18 22:02 Lopressor PO 25 mg BID GORDO Administration Ondansetron HCl 4 mg 07/07/18 16:17 Zofran Odt PO Q8H PRN Nausea And Vomiting Sevelamer Carbonate 2,400 mg 07/08/18 07:30 07/10/18 17:27 Renvela PO 2,400 mg AC GORDO Administration
[2018-07-11] MEDS ORDERED: MYLICON PO PRN ×2 (08:23→08:45)
--- NOTE | 2018-07-11 09:06 | IRU Plan of Care ---
Interdisciplinary Plan of Care - IP IRU INTERDISCIPLINARY PLAN: [facility] Inpatient Rehab Unit Plan of Care IRU Interdisciplinary Care Plan Start: 07/07/18 17:38 Freq: Admission then PRN Status: Active Protocol: Document 07/08/18 14:22 KO (Rec: 07/08/18 14:39 KO [id number]) Interdisciplinary Problem List Interdisciplinary Problem List Interdisciplinary Problem List Impaired Bathing/Grooming, Query Text:Answers will Trigger Problems Impaired Dressing,Impaired and Outcomes on Worklist. Mobility,Impaired Transfers, Impaired Toileting,Impaired Home Management,Impaired Safety, Impaired mobility, decreased strength, impaired range of motion IRU Interdisciplinary Care Plan Therapy Services Therapy Services Will Include: Occupational Therapy, Physical Therapy, DUPLICATOR PUNCH SET UP OPERATOR Query Text:Patient will be seen for a minimum of 3 hours of daily therapy 5 out of 7 days a week. Therapy intensity may be adjusted within a 7 consecutive day period to effectively serve the individual needs of the patient. Treatment Frequency/Intensity/Duration Treatment Frequency 5 x wk Treatment Intensity 1 hour per discipline Treatment Duration 2 wks Problem Area: Eating/Swallowing Eating/Swallowing Outcomes improve independence with dysphagia and progress diet as tolerated Eating/Swallowing Interventions incorporation of appropriate strategies to improve swallow Problem Area: Bathing/Grooming Bathing/Grooming Outcomes Improve [place] w/ Grooming,Improve [place] w/ Bathing Bathing/Grooming Interventions ADL Training,Use of Assistive Devices,Therapeutic Exercise, Therapeutic Activity, Neuromuscular Re-Education, Balance Work,Activity Tolerance Work,Patient/ Caregiver Education Problem Area: Dressing Dressing Outcomes Improve [place] w/ UB Dressing,Improve [place] w/ LB Dressing Dressing Interventions ADL Training,Use of Assistive Devices,Neuromuscular Re- Education,Therapeutic Exercise ,Balance Work,Modalities, Patient/Caregiver Education Problem Area: Mobility Mobility Outcomes improve [place] with mobility using the least restrictive assistive device. Improved balance, gait, and functional mobility. Mobility Interventions use of assistive devices, neuromuscular reeducation, therapeutic exercise and balance. Problem Area: Transfers Transfers Outcomes Improve [place] w/ Toilet Transfers,Improve [place] w/ Tub/Shower Transfers Transfers Interventions Transfer Training,Therapeutic Exercise,Neuromuscular Re- Education,Visual/Perceptual Training,Activity Tolerance Work,Modalities,Use of Assistive Devices,Patient/ Caregiver Education Problem Area: Bowel/Bladder Managment Bowel/Bladder Outcomes Bowel/Bladder Interventions Problem Area: Toileting Toileting Outcomes Improve [place] w/ Toileting Toileting Interventions ADL Training,Balance Work,Use of Assistive Devices,Patient/ Caregiver Education Problem Area: Nutrition Nutrition Outcomes Nutrition Interventions Problem Area: Comprehension Comprehension Outcomes Comprehension Interventions Problem Area: Expression Expression Outcomes Expression Interventions Problem Area: Problem Solving Problem Solving Outcomes improve independence with cognitive function and problem-solving Problem Solving Interventions utilizing appropriate compensatory strategies to help improve memory, cognition, problem solving. Incorporate therapeutic aspects to help improve and work on comprehension and problem solving. Problem Area: Memory Memory Outcomes Memory Interventions Problem Area: Pain Management Pain Management Outcomes Pain Management Interventions Problem Area: Knowledge Deficits Knowledge Deficits Outcomes Knowledge Deficits Interventions Problem Area: Skin/Tissue Integrity Skin/Tissue Integrity Outcomes monitor for any skin breakdown, weight shifting Skin/Tissue Integrity Interventions Problem Area: Social Interaction Social Interaction Outcomes Social Interaction Interventions Problem Area: Adjustment to Disability Adjustment to Disability Outcomes monitor for post stroke depression and treat as needed with medication and/or counseling Adjustment to Disability Interventions Problem Area: Discharge Concerns Discharge Concerns Outcomes assess ability to return home and families ability to provide appropriate level of care, provide family training Discharge Concerns Interventions Problem Area: Community Reintegration Community Reintegration Outcomes Community Reintegration Interventions Problem Area: Home Management Home Management Outcomes Improve [place] w/ Home Management Home Management Interventions Money Management Tasks, Clothing Care,Activity Tolerance Work,Patient/ Caregiver Education Problem Area: Safety Safety Outcomes Provide Safe Environment, Perform Selfcare Safely, Demonstrate Good Safety w/ Transfers/Mobility Safety Interventions Identify Fall Risk,[place] Pt. to Environment,Reduce Environmental Hazards,Neuro Check Assessment,Implement Mechanical Devices, i.e. Chair Alarm (Post Fall Update),Re- Educate Patient/Caregiver for Safety (Post Fall Update) Problem Area: Medication Education Medication Education Outcomes Medication Education Interventions Problem Area: Diabetes Education Diabetes Education Outcomes Diabetes Education Interventions Problem Area: Oxygenation Oxygenation Outcomes Oxygenation Interventions Problem Area: Cardiovascular Cardiovascular Outcomes Cardiovascular Interventions Physician Only Medical Prognosis and Rehabilitation patient has a fair medical prognosis due to multiple comorbidities. Good rehabilitation potential for recovery from effects of stroke. We'll continue to monitor for any side effects and/or comorbidity issues and address as needed to correct those issues. Potential (Completed by Physician) This plan of care has been developed based on the findings from the pre- admission assessment, post admission physician evaluation, information gathered from the assessments from all therapy disciplines and other pertinent clinicians. The plan of care has been reviewed and discussed in collaboration with the interdisciplinary team. The plan of care will be reviewed and updated at least weekly.
--- NOTE | 2018-07-11 09:11 | Progress Note ---
Subjective Date of service: 07/11/18 Principal diagnosis: CVA Interval history: 63-year-old [id number] male who developed weakness during dialysis was sent to the hospital. 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 Afterwards he is monitored closely in the ICU per protocol. Once stable he was transferred to the floor and seen by therapy. He currently has dysarthria and states he may have some issues with word finding. Most recently he was on a dysphagia diet and we will have swallowing assessed to ensure his he is safe. He has a history of seizures but is not taking any AEDs. He states his last seizure activity was years ago by his account during dialysis. He still has significant right-sided weakness as well as a right facial droop. After he was medically cleared he was transferred for further rehabilitation. All available outside hospital records were reviewed, most recent hospital stays here have also been reviewed. Discussed smoking cessation, alcohol sensation, and secondary stroke prevention and prognosis with the patient. We'll start therapy evaluations tomorrow morning and hope to see further return of function. Hospitalist group and nephrology have both been consulted and I appreciate their assistance. Patient is participating in therapy and making reasonable progress. Taking rest breaks as needed. +BM. Denies pain, chest pain, palpitations, dyspnea, cough, N/V or diarrhea. States that he does have cramping in the abdomen. Tums ordered previously for indigestion. Simethicone as been ordered most recently by another physician. Abdomen appears slightly distended and tympanic, patient states that he is not passing gas. He does have bowel sounds. We'll check of KUB. Right arm range of motion is improved, he does have crepitus in the joint however he is able to move it with active range of motion. All records, vitals, labs and medications were reviewed. No other issues per patient, nursing or therapy. Objective - Exam Narrative Exam: MUSCULOSKELETAL SPECIALTY EXAM CONSTITUTIONAL: Well developed, well nourished, appropriately groomed. RIGHT hand dominant. RESPIRATORY: Clear to auscultation bilaterally, no increased work of breathing CARDIOVASCULAR: Regular Rate/ Rhythm, no swelling, edema or tenderness in BUE or BLE. All extremities warm. Palpable thrill in left arm GI: + bowel sounds, soft, NTTP, slightly distended and tympanic, protuberant. INTEGUMENTARY: Normal, no lesion, rash, masses or bruising noted in extremities. MUSCULOSKELETAL: BUE and BLE normal without defect, subluxation, effusion or TTP. Mild crepitus on RUE. SA EF WE EE FF FA HF KE ADF EHL APF R 3/5 2/5 2/5 2/5 2/5 2/5 2/5 2/5 3/5 3/5 3/5 L 4/5 4/5 4/5 4/5 4/5 4/5 4/5 4/5 4/5 4/5 4/5 ROM - normal Tone - normal NEURO: Right facial droop,Tongue protrudes midline to possibly left (likely from previous stroke), Otherwise CN II-XII grossly intact Sensation intact in all extremities without extinction. No tremor noted in 4 extremities. Naming and repetition intact. Follows 2 step commands. Aphasia not appreciated Dysarthria present slightly Dysphagia upgraded to regular diet Neglect not appreciated POSTURE and GAIT: Sitting posture good. Balance leans right. Gait with RW - initially step to gait then started step thru, slowed and fairly steady in the beginning PSYCH: Alert, orientated x3, affect appears euthymic. Insight appears intact. - Constitutional Vitals: Vital Signs - 12hr 07/10/18 07/11/18 07/11/18 22:02 04:53 07:11 Temperature 36.9 C 36.2 C L Pulse Rate 90 78 Respiratory 19 18 Rate Blood Pressure 126/75 165/95 167/95 Blood Pressure [Left] O2 Sat by Pulse 97 Oximetry 07/11/18 07:38 Temperature 36.2 C L Pulse Rate 88 Respiratory 18 Rate Blood Pressure Blood Pressure 167/95 [Left] O2 Sat by Pulse 97 Oximetry - Allied health notes Allied health notes reviewed: nursing, PT, ST, OT FIMS assessment as documented by PT/OT/ST: Grooming Patient cleans teeth/dentures: Yes Patient ambrocio/brushes hair: Yes Patient washes, rinses and Yes dries face: Patient washes, rinses and Yes dries hands: Patient shaves: Yes Patient performs (no make-up/ 05/14 (100%) shaving): Grooming FIM Score 4. Minimal Assistance (Patient = 75% or more. Needs touching.) Toileting Toileting Device Commode over Toilet Patient able to: Adjust clothes before,Adjust clothes after Patient able to perform: 2/3 (67%) Toileting FIM Score 5. Supv./Set-Up (Needs stand-by, set-up, applying prosth/orth.) Social interaction/Memory/Problem solving Social Interaction FIM Score 7. Complete [place] (Interacts appropriately. Controls temper.) Memory FIM Score 7. Complete [place] (Remembers people and routines.) Problem Solving FIM Score 6. Mod. [place] (Mild difficulty or needs more time w/ complex.) Transfers Mode of Locomotion: Wheelchair Bed/Chair/Wheelchair Transfers 5. Supervision (Needs supv. or set-up for FIM Score sliding board, foot rests.) Toilet Transfers FIM Score 5. Supervision (Needs supervision or cueing.) Patient transferred to: Shower Shower Transfers FIM Score 4. Minimal Assistance (Patient = 75% or more. Needs touching.) Locomotion- Stairs Device used on Stairs Handrail/s Number of Stairs Ascended/ 4 Descended Patient used handrail/support: Yes Stairs FIM Score 2. Maximal Assistance (Patient = 25% or more, 4- 6 stairs.) Locomotion- walk/wheelchair Most Frequent Mode of Walking Locomotion: Ambulation Distance 20 Walking FIM Score 1. Total Assistance (Pt. < 25%, 2 or more person assist, or <50 ft.) Wheelchair Propulsion Distance 300 Wheelchair FIM Score 2. Maximal Assistance (Patient = 25% or more. Minimum of 50 ft.) Eating Eating FIM Score 5. Supervision/Set-Up (Needs help w/ containers, cutting meat, etc.) Dressing-Upper body Patient retrieves clothing No items: Patient applies/removes UE n/a prosthesis or orthosis: Upper Body Dressing FIM Score 5. Supv./Set-Up ([place] sets out clothes or applies pros./orth.) Dressing-lower body Patient retrieves clothing No items: Patient applies/removes LE n/a prosthesis or orthosis: Lower Body Dressing FIM Score 5. Supv./Set-Up ([place] sets out clothes or applies pros./orth.) - Labs CBC & Chem 7: 07/08/18 06:55 07/11/18 04:27 Labs: Laboratory Results - last 72 hr 07/08/18 07/08/18 07/08/18 09:18 11:27 16:16 Sodium Potassium Chloride Carbon Dioxide Anion Gap BUN Creatinine Estimated GFR BUN/Creatinine Ratio Glucose POC Glucose 91 116 H Calcium Vitamin B12 1706 H 07/09/18 07/10/18 07/10/18 20:59 04:15 08:08 Sodium 139 Potassium 5.6 H Chloride 95.0 L Carbon Dioxide 26 Anion Gap 24 BUN 43 H Creatinine 9.5 H Estimated GFR 7 BUN/Creatinine Ratio 5 Glucose 90 POC Glucose 110 H 77 Calcium 10.2 Vitamin B12 07/10/18 07/10/18 07/11/18 17:20 20:53 04:27 Sodium 140 Potassium 5.1 H Chloride 96.7 L Carbon Dioxide 30 Anion Gap 18 BUN 26 H Creatinine 6.4 H Estimated GFR 11 BUN/Creatinine Ratio 4 Glucose 95 POC Glucose 112 H 125 H Calcium 10.0 Vitamin B12 07/11/18 07:15 Sodium Potassium Chloride Carbon Dioxide Anion Gap BUN Creatinine Estimated GFR BUN/Creatinine Ratio Glucose POC Glucose 91 Calcium Vitamin B12 Assessment and Plan 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 Monitor for changes and neuro status. Monitor for post stroke depression as well as shoulder-hand syndrome. I69.322 dysarthria: Speech and language pathology will assess in assist patient with return of function including strategies to help project voice and improved speech intelligibility. I69.391 dysphagia: Advanced to regular diet by CONTINUITY CLERK,monitor progress Z73.6 ADL dysfunction: OT will work on improving ability to perform ADLs (including assistive devices) to increase independence and decrease caregiver burden and improve functional transfers and mobility training. R26.2 Difficulty walking: PT will work on gait training and proper use of ass istive devices and advance as appropriate to use of stairs and outside ambulation on uneven surfaces. R26.81 Unsteadiness on feet: PT will work on improving static and dynamic sitting and standing balance as well as proper use of assistive devices to decrease risk of falls. R26.89 Abnormality of gait: PT will work to improve safety and efficiency of gait through neuromotor training and gait training along with instruction on proper use of assistive devices. M62.81 Muscle weakness: PT & OT will work on strengthening exercises to improve functional strength including mixture of closed and open kinetic chain exercises. R53.81 Debility: PT & OT will work on improving overall functional status to improve participation with ADLs, mobility and social involvement. R53.83 Fatigue: PT & OT will work on improving endurance through aerobic exercises and therapeutic activity while monitoring patients tolerance for activity and vital signs as needed. Right shoulder pain - XR showed mild OA changes KUB - abdominal cramping Consults: Internal medicine consulted for management of diabetes, hypertension, CHF. Appreciate their assistance Nephrology consulted for management of end-stage renal disease and electrolytes. Appreciate their assistance DVT ppx: Heparin Pain: Continue physical modalities in therapy and pain medications as needed to achieve functional pain control. Sleep: Monitor and address as needed. Bowel: Monitor and address as needed. Appetite: Monitor and address as needed. Discharge planning: Pending therapy progress and care plan meeting. Will continue discussion with therapy team, SW, patient and family. Restrictions/ Precautions: Falls, seizures WB status: FWB Functional Hx: ADLs: Independent Cognition: Independent Mobility: Cane, single-point Barriers to Discharge: Decreased mobility and ability to perform self care, balance deficits, weakness, dysphagia, dysarthria Estimated Length of Stay: 1421 days Discharge Destination: Home with family
[2018-07-11] MEDS: RENVELA PO SCH ×3 (10:03→18:24)
[2018-07-11] MEDS: LOPRESSOR PO SCH ×2 (10:04→21:29)
[2018-07-11] MEDS: ECOTRIN PO SCH (10:05)
[2018-07-11] MEDS: COLACE PO SCH ×2 (10:05→21:28)
[2018-07-11] MEDS: PEPCID PO SCH (10:07)
[2018-07-11] MEDS: LASIX PO SCH (10:07)
--- NOTE | 2018-07-11 10:26 | XRay Report ---
PROCEDURE: XR ABDOMEN 2V TECHNIQUE: KUB and erect abdomen HISTORY: Cramping, abd pain, distended, r/o obstruction COMPARISONS: Abdominal CT March 14, 2018 FINDINGS: Lung bases clear. No free air Gas and stool throughout the colon. Nonobstructive pattern. Moderate retained stool. No organomegaly. No abnormal calcification Dextroscoliosis. Lumbar spondylosis IMPRESSION: Nonobstructive bowel gas pattern. This document is electronically signed by Juan C Capone MD., July 11 2018 11:23:52 AM ET
--- NOTE | 2018-07-11 18:16 | Progress Note ---
Assessment and Plan Acute CVA with right hemiparesis - s/p tPA treatmet, cont PT/OT - cont aspirin and statin, monitor BP. hyperkalemia, monitor BMP, should correct with HD, kayexalate as needed Peripheral neuropathy. neurontin if needed ESRD. Continue Friday, nephrology following Anemia chronic disease, h/h stable Diabetes mellitus type 2 - insulin regimen adjust as needed CAD. Patient with coronary artery disease status post multivessel PCI. cont medical mx - thank you for the consult, will follow with you Subjective Date of service: 07/11/18 Principal diagnosis: CVA Interval history: pt seen and examined. No new complaint Objective - Exam Narrative Exam: Constitutional: Well-nourished well-developed. In no distress Head: Normocephalic atraumatic Eyes: Pupils are equal round and reactive to light Nose: No enlarged turbinates, no septal deviation. Mouth: Moist mucous membranes. Neck: Supple no thyromegaly. No bruit. No JVD Heart: Regular rate and rhythm, S1-S2 normal. No rubs murmurs or gallop Lungs: Clear to auscultation bilaterally. no rales or rhonchi Abdomen: Soft, nontender. Bowel sound are present. Extremities: No edema, no cyanosis, no clubbing. Neuro: Alert oriented Oriented x3. No focal sensory or motor deficit. Skin: No rashes or hyperpigmented spots Musculoskeletal system: No joint pain or swelling Hematological: No petechia or subcutanous hemorrhages. Immunological: No multiple septic spots on the skin Lymphatic: No generalized lymphadenopathy Psychiatry: Euthymic. Calm. - Constitutional Vitals: Vital Signs - 12hr 07/11/18 07/11/18 07/11/18 07:11 07:38 10:00 Temperature 97.1 F L 97.1 F L Pulse Rate 88 Respiratory 18 18 Rate Respiratory 17 Rate [Chest] Blood Pressure 167/95 Blood Pressure 167/95 [Left] O2 Sat by Pulse 97 Oximetry 07/11/18 07/11/18 10:04 16:00 Temperature 98.1 F Pulse Rate 88 85 Respiratory 16 Rate Respiratory Rate [Chest] Blood Pressure 167/95 Blood Pressure 118/69 [Left] O2 Sat by Pulse 97 Oximetry - Labs CBC & Chem 7: 07/08/18 06:55 07/11/18 04:27 Labs: Abnormal lab results 07/10/18 07/10/18 07/11/18 Range/Units 17:20 20:53 04:27 Potassium 5.1 H (3.6-5.0) mmol/L Chloride 96.7 L (98-107) mmol/L BUN 26 H (9-20) mg/dL Creatinine 6.4 H (0.8-1.5) mg/dL POC Glucose 112 H 125 H (70-105) 07/11/18 07/11/18 Range/Units 12:13 16:22 Potassium (3.6-5.0) mmol/L Chloride (98-107) mmol/L BUN (9-20) mg/dL Creatinine (0.8-1.5) mg/dL POC Glucose 141 H 137 H (70-105)
[2018-07-11] MEDS: BENADRYL PO PRN (23:07)
[2018-07-12] MEDS: HEPARIN SUB-Q SCH ×3 (06:48→22:20)
[2018-07-12 07:15] LABS: Hemoglobin 14.9 gm/dl (11.8-15.2); Mean Corpuscular HGB Conc 32 % (32-34); Mean Corpuscular Volume 105 fl (84-94); Platelet Count 175 K/mm3 (140-440); Red Cell Distribution Width 15.8 % (13.2-15.2)
[2018-07-12] MEDS: HumaLOG SUB-Q SCH ×4 (07:30→22:38)
[2018-07-12] MEDS: ECOTRIN PO SCH (08:20)
[2018-07-12] MEDS: RENVELA PO SCH ×3 (08:20→16:46)
[2018-07-12] MEDS: LOPRESSOR PO SCH ×2 (08:20→22:20)
[2018-07-12] MEDS: PEPCID PO SCH (08:21)
[2018-07-12] MEDS: LASIX PO SCH (08:21)
[2018-07-12] MEDS: COLACE PO SCH ×2 (08:22→22:20)
[2018-07-12 08:42] LABS: BUN/Creatinine Ratio TNR; Blood Urea Nitrogen TNR mg/dL (9-20)
[2018-07-12 08:43] LABS: Alanine Aminotransferase TNR units/L (7-56); Calcium TNR mg/dL (8.4-10.2)
[2018-07-12 08:44] LABS: Albumin TNR g/dL (3.9-5); Hemolysis Index TNR
[2018-07-12 08:52] LABS: Anisocytosis 1+; Basophils % (Manual) 0 % (0.0-1.8); Total Cells Counted 100
[2018-07-12 08:53] LABS: Macrocytosis 1+; Platelet Estimate Consistent w Auto
--- NOTE | 2018-07-12 09:26 | Progress Note ---
Assessment and Plan - Patient Problems (1) Hyperkalemia Current Visit: No Status: Acute Plan to address problem: cont 2g k renal diet, cont HD on MWF schedule (2) Hypertensive chronic kidney disease with stage 5 chronic kidney disease or end stage renal disease Current Visit: Yes Status: Acute Plan to address problem: monitor BP on current meds. (3) End stage renal disease on dialysis Current Visit: No Status: Chronic Plan to address problem: cont HD on MWF schedule (4) Acute cerebrovascular accident Current Visit: Yes Status: Acute Plan to address problem: s/p tPA treatment, on ASA, cont PT/OT Subjective Date of service: 07/12/18 Principal diagnosis: CVA Interval history: Pt awake, alert, in no acute distress Objective - Vital Signs Vital signs: Vital Signs - 12hr 07/11/18 07/11/18 07/12/18 21:29 22:00 04:09 Temperature 97.4 F L Pulse Rate 82 79 Respiratory 18 Rate Respiratory 18 Rate [Back] Blood Pressure 155/92 141/85 O2 Sat by Pulse 97 Oximetry 07/12/18 07/12/18 07/12/18 06:57 06:58 08:20 Temperature 97.8 F Pulse Rate 82 75 75 Respiratory 18 Rate Respiratory Rate [Back] Blood Pressure 165/93 165/93 O2 Sat by Pulse 100 100 Oximetry - General Appearance General appearance: well-developed, well-nourished, appears stated age EENT: ATNC, PERRL, mucous membranes moist Neck: no JVD Respiratory: Present: Clear to Ascultation Cardiology: regular, S1S2 Gastrointestinal: normoactive bowel sounds Integumentary: no rash Neurologic: no focal deficit, alert and oriented x3, strength 5/5, CN 3-12 intact Psychiatric: mood/affect appropriate, cooperative - Lab 07/12/18 05:44 07/12/18 05:44 Most recent lab results Calcium TNR 07/12/18 05:44 Medications & Allergies - Medications Allergies/Adverse Reactions: Allergies No Known Allergies Allergy (Verified 02/28/17 00:21) Home Medications: Home Medications Medication Instructions Recorded Confirmed Last Taken Type Rosuvastatin Calcium [Crestor] 20 mg PO QHS 07/03/17 07/09/18 1 Day Ago History ~03/10/18 Sevelamer Carbonate [Renvela] 2,400 mg PO TIDWM 07/03/17 07/09/18 1 Day Ago History ~03/10/18 Aspirin [Aspirin BABY CHEW TAB] 81 mg PO QDAY #30 tab.chew 07/05/17 07/09/18 1 Day Ago Rx ~03/10/18 B Complex 11/Folic/C/Biot/Zinc 1 each PO DAILY 02/13/18 07/09/18 1 Day Ago History [Dialyvite with Zinc Tablet] ~03/10/18 Ergocalciferol (Vitamin D2) 50,000 unit PO QWEEK 02/13/18 07/09/18 1 Day Ago History [Drisdol] ~03/10/18 Omeprazole 20 mg PO QDAY 02/13/18 07/09/18 1 Day Ago History ~03/10/18 ISOSORBIDE MONOnitrate [Imdur ER] 30 mg PO DAILY #30 tablet 02/14/18 07/09/18 1 Day Ago Rx ~03/10/18 Metoprolol [Lopressor TAB] 12.5 mg PO BID #30 tablet 02/14/18 07/09/18 1 Day Ago Rx ~03/10/18 Gabapentin [Neurontin] 100 mg PO BID #60 capsule 05/03/18 07/09/18 Unknown Rx Verapamil [Calan] 80 mg PO Q8HR #90 tablet 05/03/18 07/09/18 Unknown Rx Hydroxyzine HCl [hydrOXYzine] 50 mg PO TID 05/14/18 07/09/18 Unknown History traMADol [Ultram 50 MG tab] 50 mg PO Q6HR PRN 05/14/18 07/09/18 Unknown History Active Medications: Generic Name Dose Route Start Last Admin Trade Name Freq PRN Reason Stop Dose Admin Acetaminophen 500 mg 07/07/18 16:14 07/11/18 10:06 Tylenol PO 500 mg Q6H PRN Administration Pain, Mild (1-3) Al Hydrox/Mg Hydrox/Simethicone 15 ml 07/09/18 14:01 07/11/18 10:02 Alum-Mag Hydrox-Simeth 260-379-78ah/5ml PO 15 ml Q4H PRN Administration Indigestion Aspirin 325 mg 07/08/18 08:00 07/12/18 08:20 Ecotrin PO 325 mg QDAY GORDO Administration Atorvastatin Calcium 40 mg 07/07/18 21:00 07/11/18 21:29 Lipitor PO 40 mg QHS GORDO Administration Bisacodyl 10 mg 07/07/18 16:14 Dulcolax ME QDAY PRN Constipation Calcium Carbonate/Glycine 1,000 mg 07/08/18 11:30 07/09/18 05:10 Tums PO 1,000 mg Q6H PRN Administration Indigestion Dextrose 50 ml 07/07/18 15:48 D50w (25gm) Syringe IV PRN PRN Hypoglycemia Diphenhydramine HCl 25 mg 07/08/18 23:02 07/11/18 23:07 Benadryl PO 25 mg Q8H PRN Administration Itching Docusate Sodium 100 mg 07/07/18 22:00 07/12/18 08:22 Colace PO 100 mg BID [facility] Administration Famotidine 20 mg 07/09/18 15:00 07/12/18 08:21 Pepcid PO 20 mg QDAY GORDO Administration Furosemide 40 mg 07/08/18 08:00 07/12/18 08:21 Lasix PO 40 mg QDAY [facility] Administration Heparin Sodium (Porcine) 5,000 unit 07/07/18 22:00 07/12/18 06:48 Heparin SUB-Q 5,000 unit Q8HR [facility] Administration Hydroxyzine HCl 25 mg 07/10/18 17:06 Atarax PO Q6H PRN Itching Sodium Chloride 100 mls @ 999 mls/hr 07/08/18 10:00 Nacl 0.9% IV JEANINE PRN Hypotension Insulin Human Lispro 0 unit 07/07/18 16:30 07/11/18 18:14 Humalog SUB-Q Not Given ACHS [facility] Protocol Metoprolol Tartrate 25 mg 07/07/18 22:00 07/12/18 08:20 Lopressor PO 25 mg BID [facility] Administration Ondansetron HCl 4 mg 07/07/18 16:17 Zofran Odt PO Q8H PRN Nausea And Vomiting Sevelamer Carbonate 2,400 mg 07/08/18 07:30 07/12/18 08:20 Renvela PO 2,400 mg AC GORDO Administration Simethicone 80 mg 07/11/18 08:45 Mylicon PO Q6H PRN Gas pain
[2018-07-12 10:13] LABS: Albumin 4.2 g/dL (3.9-5)
[2018-07-12] MEDS ORDERED: KIONEX PO ONE (10:29)
[2018-07-12] MEDS: TYLENOL PO PRN (11:26)
[2018-07-12] MEDS: COZAAR PO SCH (11:31)
--- NOTE | 2018-07-12 11:41 | Progress Note ---
Assessment and Plan Acute CVA with right hemiparesis - s/p tPA treatmet, cont PT/OT - cont aspirin and statin, monitor BP. hyperkalemia, monitor BMP, should correct with HD, kayexalate ordered Peripheral neuropathy. neurontin if needed ESRD. Continue Friday, nephrology following Anemia chronic disease, h/h stable Diabetes mellitus type 2 - insulin regimen adjust as needed CAD. Patient with coronary artery disease status post multivessel PCI. cont medical mx - thank you for the consult, will follow with you Subjective Date of service: 07/12/18 Principal diagnosis: CVA with right hemiparesis, ESRD A on HD on MWF, T2 DM, CAD. Interval history: pt seen and examined. No new complaint. Lying quietly in bed Objective - Exam Narrative Exam: Constitutional: Well-nourished well-developed. In no distress Head: Normocephalic atraumatic Eyes: Pupils are equal round and reactive to light Nose: No enlarged turbinates, no septal deviation. Mouth: Moist mucous membranes. Neck: Supple no thyromegaly. No bruit. No JVD Heart: Regular rate and rhythm, S1-S2 normal. No rubs murmurs or gallop Lungs: Clear to auscultation bilaterally. no rales or rhonchi Abdomen: Soft, nontender. Bowel sound are present. Extremities: No edema, no cyanosis, no clubbing. Neuro: Alert oriented Oriented x2. Right hemiparesis Skin: No rashes or hyperpigmented spots Musculoskeletal system: No joint pain or swelling Hematological: No petechia or subcutanous hemorrhages. Immunological: No multiple septic spots on the skin Lymphatic: No generalized lymphadenopathy Psychiatry: Euthymic. Calm. - Constitutional Vitals: Vital Signs - 12hr 07/12/18 07/12/18 07/12/18 04:09 06:57 06:58 Temperature 97.4 F L 97.8 F Pulse Rate 79 82 75 Respiratory 18 18 Rate Blood Pressure 141/85 165/93 O2 Sat by Pulse 97 100 100 Oximetry 07/12/18 07/12/18 07/12/18 08:20 11:10 11:11 Temperature 97.7 F Pulse Rate 75 78 Respiratory 18 Rate Blood Pressure 165/93 159/93 O2 Sat by Pulse 99 Oximetry 07/12/18 11:31 Temperature Pulse Rate Respiratory Rate Blood Pressure 159/93 O2 Sat by Pulse Oximetry - Labs CBC & Chem 7: 07/12/18 05:44 07/12/18 08:58 Labs: Abnormal lab results 07/11/18 07/11/18 07/11/18 Range/Units 12:13 16:22 20:59 Hct (35.5-45.6) % MCV (84-94) fl MCH (28-32) pg RDW (13.2-15.2) % Monocytes % (Manual) (0.0-7.3) % Eosinophils % (Manual) (0.0-4.3) % Potassium (3.6-5.0) mmol/L Chloride (98-107) mmol/L BUN (9-20) mg/dL Creatinine (0.8-1.5) mg/dL Glucose (75-100) mg/dL POC Glucose 141 H 137 H 160 H (70-105) 07/12/18 07/12/18 07/12/18 Range/Units 05:44 07:00 08:58 Hct 46.0 H (35.5-45.6) % MCV 105 H (84-94) fl MCH 34 H (28-32) pg RDW 15.8 H (13.2-15.2) % Monocytes % (Manual) 14.0 H (0.0-7.3) % Eosinophils % (Manual) 5.0 H (0.0-4.3) % Potassium 5.5 H (3.6-5.0) mmol/L Chloride 94.2 L (98-107) mmol/L BUN 47 H (9-20) mg/dL Creatinine 8.9 H (0.8-1.5) mg/dL Glucose 112 H (75-100) mg/dL POC Glucose 111 H (70-105)
[2018-07-12] MEDS: NEURONTIN PO SCH (22:19)
[2018-07-12] MEDS: BENADRYL PO PRN (22:19)
[2018-07-12] MEDS: Renal Caps PO SCH (22:24)
[2018-07-13] MEDS: HEPARIN SUB-Q SCH ×3 (05:27→21:55)
[2018-07-13] MEDS ORDERED: RENVELA PO SCH (08:00)
[2018-07-13] MEDS: HumaLOG SUB-Q SCH ×3 (08:44→17:09)
[2018-07-13] MEDS: RENVELA PO SCH ×3 (08:56→17:22)
[2018-07-13] MEDS: LOPRESSOR PO SCH ×2 (08:57→21:58)
[2018-07-13] MEDS: COZAAR PO SCH (08:57)
[2018-07-13] MEDS: Renal Caps PO SCH ×2 (08:58→10:00)
[2018-07-13] MEDS: NEURONTIN PO SCH ×2 (08:58→21:57)
[2018-07-13 09:53] LABS: Basophils # (Auto) 0.1 K/mm3 (0.0-0.1); Eosinophils # (Auto) 0.3 K/mm3 (0.0-0.4); Eosinophils % (Auto) 5.7 % (0.0-4.3); Lymphocytes # (Auto) 1.4 K/mm3 (1.2-5.4); Lymphocytes % (Auto) 28.9 % (13.4-35.0); Mean Corpuscular HGB Conc 33 % (32-34); Mean Corpuscular Volume 103 fl (84-94); Monocytes # (Auto) 0.6 K/mm3 (0.0-0.8); Monocytes % (Auto) 12.1 % (0.0-7.3); Platelet Count 195 K/mm3 (140-440); Red Blood Count 3.78 M/mm3 (3.65-5.03); Red Cell Distribution Width 15.1 % (13.2-15.2)
[2018-07-13] MEDS ORDERED: VITAMIN D2 PO SCH (10:00)
[2018-07-13 10:05] LABS: Hematocrit 38.9 % (35.5-45.6); Hemoglobin 12.7 gm/dl (11.8-15.2)
[2018-07-13 10:13] LABS: Albumin 4.1 g/dL (3.9-5); Calcium 9.8 mg/dL (8.4-10.2)
--- NOTE | 2018-07-13 10:41 | Progress Note ---
Assessment and Plan - Patient Problems (1) Hyperkalemia Current Visit: No Status: Acute Plan to address problem: cont 2g k renal diet, cont HD on MWF schedule (2) Hypertensive chronic kidney disease with stage 5 chronic kidney disease or end stage renal disease Current Visit: Yes Status: Acute Plan to address problem: monitor BP on current meds. (3) End stage renal disease on dialysis Current Visit: No Status: Chronic Plan to address problem: cont HD on MWF schedule (4) Acute cerebrovascular accident Current Visit: Yes Status: Acute Plan to address problem: s/p tPA treatment, on ASA, cont PT/OT Subjective Date of service: 07/13/18 Principal diagnosis: CVA with right hemiparesis, ESRD A on HD on MWF, T2 DM, CAD. Interval history: Pt awake, alert, in no acute distress. receiving PT Objective - Vital Signs Vital signs: Vital Signs - 12hr 07/13/18 07/13/18 07:20 08:57 Temperature 98.5 F Pulse Rate 76 76 Respiratory 18 Rate Blood Pressure 148/94 Blood Pressure 148/94 [Left] O2 Sat by Pulse 98 Oximetry - General Appearance General appearance: well-developed, well-nourished, appears stated age EENT: ATNC, PERRL, mucous membranes moist Neck: no JVD Respiratory: Present: Clear to Ascultation Cardiology: regular, S1S2 Gastrointestinal: normoactive bowel sounds Integumentary: no rash, other (no edema ) Neurologic: no focal deficit, alert and oriented x3, strength 5/5, CN 3-12 intact Psychiatric: mood/affect appropriate, cooperative - Lab 07/13/18 09:23 07/13/18 09:23 Most recent lab results Calcium 9.8 mg/dL (8.4-10.2) 07/13/18 09:23 Phosphorus 6.20 mg/dL (2.5-4.5) H 07/13/18 09:23 Magnesium 2.70 mg/dL (1.7-2.3) H 07/13/18 09:23 Medications & Allergies - Medications Allergies/Adverse Reactions: Allergies No Known Allergies Allergy (Verified 02/28/17 00:21) Home Medications: Home Medications Medication Instructions Recorded Confirmed Last Taken Type Rosuvastatin Calcium [Crestor] 20 mg PO QHS 07/03/17 07/09/18 1 Day Ago History ~03/10/18 Sevelamer Carbonate [Renvela] 2,400 mg PO TIDWM 07/03/17 07/09/18 1 Day Ago H istory ~03/10/18 Aspirin [Aspirin BABY CHEW TAB] 81 mg PO QDAY #30 tab.chew 07/05/17 07/09/18 1 Day Ago Rx ~03/10/18 B Complex 11/Folic/C/Biot/Zinc 1 each PO DAILY 02/13/18 07/09/18 1 Day Ago History [Dialyvite with Zinc Tablet] ~03/10/18 Ergocalciferol (Vitamin D2) 50,000 unit PO QWEEK 02/13/18 07/09/18 1 Day Ago History [Drisdol] ~03/10/18 Omeprazole 20 mg PO QDAY 02/13/18 07/09/18 1 Day Ago History ~03/10/18 ISOSORBIDE MONOnitrate [Imdur ER] 30 mg PO DAILY #30 tablet 02/14/18 07/09/18 1 Day Ago Rx ~03/10/18 Metoprolol [Lopressor TAB] 12.5 mg PO BID #30 tablet 02/14/18 07/09/18 1 Day Ago Rx ~03/10/18 Gabapentin [Neurontin] 100 mg PO BID #60 capsule 05/03/18 07/09/18 Unknown Rx Verapamil [Calan] 80 mg PO Q8HR #90 tablet 05/03/18 07/09/18 Unknown Rx Hydroxyzine HCl [hydrOXYzine] 50 mg PO TID 05/14/18 07/09/18 Unknown History traMADol [Ultram 50 MG tab] 50 mg PO Q6HR PRN 05/14/18 07/09/18 Unknown History Active Medications: Generic Name Dose Route Start Last Admin Trade Name Freq PRN Reason Stop Dose Admin Acetaminophen 500 mg 07/07/18 16:14 07/12/18 11:26 Tylenol PO 500 mg Q6H PRN Administration Pain, Mild (1-3) Al Hydrox/Mg Hydrox/Simethicone 15 ml 07/09/18 14:01 07/11/18 10:02 Alum-Mag Hydrox-Simeth 192-282-22rw/5ml PO 15 ml Q4H PRN Administration Indigestion Aspirin 81 mg 07/13/18 08:00 Baby Aspirin PO QDAY GORDO Atorvastatin Calcium 40 mg 07/07/18 21:00 07/12/18 22:20 Lipitor PO 40 mg QHS GORDO Administration Bisacodyl 10 mg 07/07/18 16:14 Dulcolax [place] QDAY PRN Constipation Calcium Carbonate/Glycine 1,000 mg 07/08/18 11:30 07/09/18 05:10 Tums PO 1,000 mg Q6H PRN Administration Indigestion Dextrose 50 ml 07/07/18 15:48 D50w (25gm) Syringe IV PRN PRN Hypoglycemia Diphenhydramine HCl 25 mg 07/08/18 23:02 07/12/18 22:19 Benadryl PO 25 mg Q8H PRN Administration Itching Docusate Sodium 100 mg 07/07/18 22:00 07/12/18 22:20 Colace PO 100 mg BID COUNT INCLUDES [facility] Administration Ergocalciferol 50,000 unit 07/13/18 10:00 Vitamin D2 PO Mo GORDO Famotidine 20 mg 07/09/18 15:00 07/12/18 08:21 Pepcid PO 20 mg QDAY GORDO Administration Furosemide 40 mg 07/08/18 08:00 07/12/18 08:21 Lasix PO 40 mg QDAY GORDO Administration Gabapentin 100 mg 07/12/18 22:00 07/13/18 08:58 Neurontin PO 100 mg BID COUNT INCLUDES THE [facility] Administration Heparin Sodium (Porcine) 5,000 unit 07/07/18 22:00 07/13/18 05:27 Heparin SUB-Q 5,000 unit Q8HR GORDO Administration Hydroxyzine HCl 25 mg 07/10/18 17:06 Atarax PO Q6H PRN Itching Hydroxyzine HCl 50 mg 07/13/18 08:00 Atarax PO TID GORDO Sodium Chloride 100 mls @ 999 mls/hr 07/08/18 10:00 Nacl 0.9% IV JEANINE PRN Hypotension Insulin Human Lispro 0 unit 07/07/18 16:30 07/13/18 08:44 Humalog SUB-Q Not Given ACHS COUNT INCLUDES THE [facility] Protocol Losartan Potassium 50 mg 07/12/18 12:00 07/13/18 08:57 Cozaar PO 50 mg QDAY GORDO Administration Metoprolol Tartrate 25 mg 07/07/18 22:00 07/13/18 08:57 Lopressor PO 25 mg BID GORDO Administration Multivit/Ca Carb/B Cmplx/FA/Prenat 1 cap 07/12/18 21:00 07/13/18 08:58 Renal Caps PO 1 cap DAILY GORDO Administration Ondansetron HCl 4 mg 07/07/18 16:17 Zofran Odt PO Q8H PRN Nausea And Vomiting Sevelamer Carbonate 2,400 mg 07/08/18 07:30 07/13/18 08:56 Renvela PO 2,400 mg AC GORDO Administration Simethicone 80 mg 07/11/18 08:45 Mylicon PO Q6H PRN Gas pain
[2018-07-13] MEDS: PEPCID PO SCH (12:34)
[2018-07-13] MEDS: COLACE PO SCH ×2 (12:34→21:57)
[2018-07-13] MEDS: BABY ASPIRIN PO SCH (12:34)
[2018-07-13] MEDS: ATARAX PO SCH ×2 (12:35→14:00)
[2018-07-13] MEDS ORDERED: NACL 0.9 (PRIMING MACHINE ONLY DIALYSIS) MC ONE (12:51)
--- NOTE | 2018-07-13 14:16 | Progress Note ---
Assessment and Plan Acute CVA, - s/p tPA treatmet, cont PT/OT - cont aspirin and statin, monitor BP. hyperkalemia, monitor BMP, should correct with HD, kayexalate as needed Peripheral neuropathy. neurontin if needed ESRD. Continue Friday, nephrology following Anemia chronic disease, h/h stable Diabetes mellitus type 2 - insulin regimen adjust as needed CAD. Patient with coronary artery disease status post multivessel PCI. cont medical mx - will follow with you Brief History: This is 63 yo M with past medical history of hypertension, CAD, ESRD on HD on MWF schedule, who was recently hospitalized at [facility] for acute CVA from 07/03 - 07/06, after presenting with slurred speech, Rt upper/lower extremity weakness, required tPA treatment on 07/03, after which symptoms improved to some degree. pt was then transferred to [facility] for acute rehab on 07/07, medicine service consult is requested for medical management. Subjective Date of service: 07/13/18 Principal diagnosis: CVA with right hemiparesis, ESRD A on HD on MWF, T2 DM, CAD. Interval history: Patient seen and examined no acute issue, tolerating rehab Objective - Exam Narrative Exam: General appearance: Present: no acute distress, well-nourished - EENT Eyes: PERRL, EOM intact ENT: hearing intact, clear oral mucosa Ears: bilateral: normal - Neck Neck: supple, normal ROM - Respiratory Respiratory effort: normal Respiratory: bilateral: CTA - Cardiovascular Rhythm: regular Heart Sounds: Present: S1 & S2. Absent: gallop, rub Extremities: pulses intact, No edema, normal color, Full ROM - Gastrointestinal General gastrointestinal: Present: soft, non-tender, non-distended, normal bowel sounds - Integumentary Integumentary: clear, warm, dry - Musculoskeletal Musculoskeletal: right sided weakness - Neurologic Neurologic: moves all extremities - Psychiatric Psychiatric: memory intact, appropriate mood/affect, intact judgment & insight - Constitutional Vitals: Vital Signs - 12hr 07/13/18 07/13/18 07/13/18 07:20 08:57 11:55 Temperature 98.5 F 97.5 F L Pulse Rate 76 76 73 Respiratory 18 19 Rate Blood Pressure 148/94 Blood Pressure 148/94 168/90 [Left] O2 Sat by Pulse 98 98 Oximetry 0607/13/18 07/13/18 12:45 12:55 13:00 Temperature 97.5 F L Pulse Rate 72 70 71 Respiratory 19 Rate Blood Pressure 163/101 172/91 184/98 Blood Pressure [Left] O2 Sat by Pulse Oximetry 07/13/18 07/13/18 13:15 13:30 Temperature Pulse Rate 71 75 Respiratory Rate Blood Pressure 151/92 164/89 Blood Pressure [Left] O2 Sat by Pulse Oximetry - Labs CBC & Chem 7: 07/13/18 09:23 07/13/18 09:23 Labs: Abnormal lab results 07/08/18 07/09/18 07/12/18 Range/Units 22:04 17:46 20:46 MCV (84-94) fl MCH (28-32) pg [place] % (Auto) (0.0-7.3) % Eos % (Auto) (0.0-4.3) % Potassium (3.6-5.0) mmol/L Chloride (98-107) mmol/L BUN (9-20) mg/dL Creatinine (0.8-1.5) mg/dL Glucose (75-100) mg/dL POC Glucose 114 H 114 H 110 H (70-105) Phosphorus (2.5-4.5) mg/dL Magnesium (1.7-2.3) mg/dL 07/13/18 07/13/18 07/13/18 Range/Units 07:33 09:23 09:23 MCV 103 H (84-94) fl MCH 34 H (28-32) pg [place] % (Auto) 12.1 H (0.0-7.3) % Eos % (Auto) 5.7 H (0.0-4.3) % Potassium 5.1 H (3.6-5.0) mmol/L Chloride 91.0 L (98-107) mmol/L BUN 61 H (9-20) mg/dL Creatinine 10.3 H (0.8-1.5) mg/dL Glucose 104 H (75-100) mg/dL POC Glucose 137 H (70-105) Phosphorus 6.20 H (2.5-4.5) mg/dL Magnesium 2.70 H (1.7-2.3) mg/dL
[2018-07-13] MEDS: ATARAX PO PRN (17:21)
[2018-07-13] MEDS: TYLENOL PO PRN (17:22)
[2018-07-13] MEDS: LASIX PO SCH (17:25)
[2018-07-14] MEDS: HumaLOG SUB-Q SCH ×6 (03:30→22:18)
[2018-07-14] MEDS: ATARAX PO SCH ×4 (03:33→22:12)
[2018-07-14] MEDS: HEPARIN SUB-Q SCH ×3 (06:55→21:45)
[2018-07-14] MEDS ORDERED: ATARAX PO ONE (09:25)
[2018-07-14] MEDS: PEPCID PO SCH (09:29)
[2018-07-14] MEDS: RENVELA PO SCH ×3 (09:29→17:23)
[2018-07-14] MEDS: LOPRESSOR PO SCH ×2 (09:29→22:14)
[2018-07-14] MEDS: COLACE PO SCH ×2 (09:29→22:12)
[2018-07-14] MEDS: LASIX PO SCH (09:29)
[2018-07-14] MEDS: NEURONTIN PO SCH ×2 (09:29→22:14)
[2018-07-14] MEDS: BABY ASPIRIN PO SCH (09:30)
[2018-07-14] MEDS: Renal Caps PO SCH (09:32)
--- NOTE | 2018-07-14 10:51 | Progress Note ---
Assessment and Plan - Patient Problems (1) Hyperkalemia Current Visit: No Status: Acute Plan to address problem: cont 2g k renal diet, cont HD on MWF schedule (2) Hypertensive chronic kidney disease with stage 5 chronic kidney disease or end stage renal disease Current Visit: Yes Status: Acute Plan to address problem: monitor BP on current meds. (3) End stage renal disease on dialysis Current Visit: No Status: Chronic Plan to address problem: cont HD on MWF schedule (4) Acute cerebrovascular accident Current Visit: Yes Status: Acute Plan to address problem: s/p tPA treatment, on ASA, cont PT/OT Subjective Date of service: 07/14/18 Principal diagnosis: CVA with right hemiparesis, ESRD A on HD on MWF, T2 DM, CAD. Interval history: Pt awake, alert, in no acute distress. receiving PT Objective - Vital Signs Vital signs: Vital Signs - 12hr 07/14/18 07/14/18 07/14/18 06:25 07:05 07:49 Temperature 97.4 F L 97.9 F Pulse Rate 72 70 72 Respiratory 20 17 19 Rate Blood Pressure 173/89 Blood Pressure 146/84 125/77 [Left] O2 Sat by Pulse 99 97 Oximetry - General Appearance General appearance: well-developed, well-nourished, appears stated age EENT: ATNC, PERRL, mucous membranes moist Neck: no JVD Respiratory: Present: Clear to Ascultation Cardiology: regular, S1S2 Gastrointestinal: normoactive bowel sounds Integumentary: no rash, other (no edema ) Neurologic: no focal deficit, alert and oriented x3, strength 5/5, CN 3-12 intact Psychiatric: mood/affect appropriate, cooperative - Lab 07/13/18 09:23 07/13/18 09:23 Most recent lab results Calcium 9.8 mg/dL (8.4-10.2) 07/13/18 09:23 Phosphorus 6.20 mg/dL (2.5-4.5) H 07/13/18 09:23 Magnesium 2.70 mg/dL (1.7-2.3) H 07/13/18 09:23 Medications & Allergies - Medications Allergies/Adverse Reactions: Allergies No Known Allergies Allergy (Verified 02/28/17 00:21) Home Medications: Home Medications Medication Instructions Recorded Confirmed Last Taken Type Rosuvastatin Calcium [Crestor] 20 mg PO QHS 07/03/17 07/09/18 1 Day Ago History ~03/10/18 Sevelamer Carbonate [Renvela] 2,400 mg PO TIDWM 07/03/17 07/09/18 1 Day Ago History ~03/10/18 Aspirin [Aspirin BABY CHEW TAB] 81 mg PO QDAY #30 tab.chew 07/05/17 07/09/18 1 Day Ago Rx ~03/10/18 B Complex 11/Folic/C/Biot/Zinc 1 each PO DAILY 02/13/18 07/09/18 1 Day Ago History [Dialyvite with Zinc Tablet] ~03/10/18 Ergocalciferol (Vitamin D2) 50,000 unit PO QWEEK 02/13/18 07/09/18 1 Day Ago History [Drisdol] ~03/10/18 Omeprazole 20 mg PO QDAY 02/13/18 07/09/18 1 Day Ago History ~03/10/18 ISOSORBIDE MONOnitrate [Imdur ER] 30 mg PO DAILY #30 tablet 02/14/18 07/09/18 1 Day Ago Rx ~03/10/18 Metoprolol [Lopressor TAB] 12.5 mg PO BID #30 tablet 02/14/18 07/09/18 1 Day Ago Rx ~03/10/18 Gabapentin [Neurontin] 100 mg PO BID #60 capsule 05/03/18 07/09/18 Unknown Rx Verapamil [Calan] 80 mg PO Q8HR #90 tablet 05/03/18 07/09/18 Unknown Rx Hydroxyzine HCl [hydrOXYzine] 50 mg PO TID 05/14/18 07/09/18 Unknown History traMADol [Ultram 50 MG tab] 50 mg PO Q6HR PRN 05/14/18 07/09/18 Unknown History Active Medications: Generic Name Dose Route Start Last Admin Trade Name Freq PRN Reason Stop Dose Admin Acetaminophen 500 mg 07/07/18 16:14 07/13/18 17:22 Tylenol PO 500 mg Q6H PRN Administration Pain, Mild (1-3) Al Hydrox/Mg Hydrox/Simethicone 15 ml 07/09/18 14:01 07/11/18 10:02 Alum-Mag Hydrox-Simeth 033-313-72ad/5ml PO 15 ml Q4H PRN Administration Indigestion Aspirin 81 mg 07/13/18 08:00 07/14/18 09:30 Baby Aspirin PO 81 mg QDAY GORDO Administration Atorvastatin Calcium 40 mg 07/07/18 21:00 07/13/18 21:57 Lipitor PO 40 mg QHS GORDO Administration Bisacodyl 10 mg 07/07/18 16:14 Dulcolax [place] QDAY PRN Constipation Calcium Carbonate/Glycine 1,000 mg 07/08/18 11:30 07/09/18 05:10 Tums PO 1,000 mg Q6H PRN Administration Indigestion Dextrose 50 ml 07/07/18 15:48 D50w (25gm) Syringe IV PRN PRN Hypoglycemia Docusate Sodium 100 mg 07/07/18 22:00 07/14/18 09:29 Colace PO 100 mg BID GORDO Administration Ergocalciferol 50,000 unit 07/13/18 10:00 07/13/18 12:34 Vitamin D2 PO 50,000 unit Mo GORDO Administration Famotidine 20 mg 07/09/18 15:00 07/14/18 09:29 Pepcid PO 20 mg QDAY GORDO Administration Furosemide 40 mg 07/08/18 08:00 07/14/18 09:29 Lasix PO 40 mg QDAY GORDO Administration Gabapentin 100 mg 07/12/18 22:00 07/14/18 09:29 Neurontin PO 100 mg BID GORDO Administration Heparin Sodium (Porcine) 5,000 unit 07/07/18 22:00 07/14/18 06:55 Heparin SUB-Q 5,000 unit Q8HR GORDO Administration Hydroxyzine HCl 25 mg 07/10/18 17:06 07/13/18 17:21 Atarax PO 25 mg Q6H PRN Administration Itching Hydroxyzine HCl 50 mg 07/13/18 08:00 07/14/18 06:59 Atarax PO 50 mg TID GORDO Administration Sodium Chloride 100 mls @ 999 mls/hr 07/08/18 10:00 Nacl 0.9% IV JEANINE PRN Hypotension Insulin Human Lispro 0 unit 07/07/18 16:30 07/14/18 03:30 Humalog SUB-Q Not Given ACHS [facility] Protocol Losartan Potassium 50 mg 07/12/18 12:00 07/13/18 08:57 Cozaar PO 50 mg QDAY GORDO Administration Metoprolol Tartrate 25 mg 07/07/18 22:00 07/14/18 09:29 Lopressor PO 25 mg BID GORDO Administration Multivit/Ca Carb/B Cmplx/FA/Prenat 1 cap 07/12/18 21:00 07/14/18 09:32 Renal Caps PO 1 cap DAILY GORDO Administration Ondansetron HCl 4 mg 07/07/18 16:17 Zofran Odt PO Q8H PRN Nausea And Vomiting Sevelamer Carbonate 2,400 mg 07/08/18 07:30 07/14/18 09:29 Renvela PO 2,400 mg AC GORDO Administration Simethicone 80 mg 07/11/18 08:45 Mylicon PO Q6H PRN Gas pain
--- NOTE | 2018-07-14 13:19 | Progress Note ---
Subjective Date of service: 07/14/18 Principal diagnosis: CVA with right hemiparesis, ESRD A on HD on MWF, T2 DM, CAD. Interval history: 63-year-old kyxpe-gljd-fdugosai male who developed weakness during dialysis was sent to the hospital. He was found to have a second CVA and tPA was administer ed with some improvement. Afterwards he is monitored closely in the ICU per protocol. Once stable he was transferred to the floor and seen by therapy. He currently has dysarthria and states he may have some issues with word finding. Most recently he was on a dysphagia diet and we will have swallowing assessed to ensure his he is safe. He has a history of seizures but is not taking any AEDs. He states his last seizure activity was years ago by his account during dialysis. He still has significant right-sided weakness as well as a right facial droop. After he was medically cleared he was transferred for further rehabilitation. All available outside hospital records were reviewed, most recent hospital stays here have also been reviewed. Discussed smoking cessation, alcohol sensation, and secondary stroke prevention and prognosis with the patient. We'll start therapy evaluations tomorrow morning and hope to see further return of function. Hospitalist group and nephrology have both been consulted and I appreciate their assistance. Patient is participating in therapy and making reasonable progress. Taking rest breaks as needed. +BM. Denies pain, chest pain, palpitations, dyspnea, cough, N/V or diarrhea. Abdominal x-ray reviewed earlier and showed non-obstructive bowel gas pattern. No complaints of abdominal cramping today. Right arm range of motion is improved, he does have crepitus in the joint however he is able to move it with active range of motion. Patient was discussed in team conference. Making pretty good gains from a PT and OT standpoint. 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 Primary issue is decreased safety awareness. Patient has an abnormal gait but has had this premorbidly. Will be safest with rolling walker. Plan to discharge Friday. Discussed discharge p nimesh with patient and and they are in agreement. Decreased safety awareness noted by to be part of patient's personality. While I was in the room patient refused to allow assistance with getting to the restroom and instead unsafely got up and walked in and close the door. Discussed with both patient and need for further therapy at home, adherence to renal diet, adherence to secondary stroke prevention and smoking cessation, and adherence to safety precautions as prescribed by therapist. All records, vitals, labs and medications were reviewed. No other issues per patient, nursing or therapy. Objective - Exam Narrative Exam: MUSCULOSKELETAL SPECIALTY EXAM CONSTITUTIONAL: Well developed, well nourished, appropriately groomed. RIGHT hand dominant. RESPIRATORY: Clear to auscultation bilaterally, no increased work of breathing CARDIOVASCULAR: Regular Rate/ Rhythm, no swelling, edema or tenderness in BUE or BLE. All extremities warm. Palpable thrill in left arm GI: + bowel sounds, soft, NTTP, slightly distended, protuberant. INTEGUMENTARY: Normal, no lesion, rash, masses or bruising noted in extremities. MUSCULOSKELETAL: BUE and BLE normal without defect, subluxation, effusion or TTP. Mild crepitus on RUE. SA EF WE EE FF FA HF KE ADF EHL APF R 3/ 3/ 3/ 3/ 3/ 3/ 3/ 3/ 3/ 3/ 3/5 L / 4/5 4/ 4/ 4/5 4/ 4/5 4/5 4/ 4/5 4/5 ROM - normal Tone - normal NEURO: Right facial droop,Tongue protrudes midline to possibly left (likely from previous stroke), Otherwise CN II-XII grossly intact Sensation intact in all extremities without extinction. No tremor noted in 4 extremities. Naming and repetition intact. Follows 2 step commands. Aphasia not appreciated Dysarthria present slightly Dysphagia upgraded to regular diet Neglect not appreciated POSTURE and GAIT: Sitting posture good. Balance leans right. Gait with RW, functional but not smooth, decreased endurance PSYCH: Alert, orientated x3, affect appears euthymic. Insight appears intact, decreased safety awareness/personality. - Constitutional Vitals: Vital Signs - 12hr 07/14/18 07/14/18 07/14/18 06:25 07:05 07:49 Temperature 36.3 C L 36.6 C Pulse Rate 72 70 72 Respiratory 20 17 19 Rate Blood Pressure 173/89 Blood Pressure 146/84 125/77 [Left] O2 Sat by Pulse 99 97 Oximetry 07/14/18 11:50 Temperature 36.7 C Pulse Rate 61 Respiratory 18 Rate Blood Pressure Blood Pressure 168/89 [Left] O2 Sat by Pulse 95 Oximetry - Allied health notes FIMS assessment as documented by PT/OT/ST: Grooming Patient cleans teeth/dentures: Yes Patient ambrocio/brushes hair: Yes Patient washes, rinses and Yes dries face: Patient washes, rinses and Yes dries hands: Patient shaves: Yes Patient performs (no make-up/ 05/14 (100%) shaving): Patient performs (w/ make-up/ 06/14 (100%) shaving): Grooming FIM Score 5. Supervision (Barnes applies toothpaste or opens containers.) Toileting Toileting Device Commode over Toilet Patient able to: Adjust clothes before,Adjust clothes after Patient able to perform: 2/3 (67%) Toileting FIM Score 5. Supv./Set-Up (Needs stand-by, set-up, applying prosth/orth.) Social interaction/Memory/Problem solving Social Interaction FIM Score 5. Supervision (Needs supv. <10%. Needs encouragement to participate.) Memory FIM Score 5. Supervision (Needs cueing <10%, stressful/ unfamiliar situations.) Problem Solving FIM Score 4. Minimal Assistance (Solves routine problems 75-90%.) Transfers Mode of Locomotion: Wheelchair Bed/Chair/Wheelchair Transfers 5. Supervision (Needs supv. or set-up for FIM Score sliding board, foot rests.) Toilet Transfers FIM Score 5. Supervision (Needs supervision or cueing.) Patient transferred to: Shower Shower Transfers FIM Score 4. Minimal Assistance (Patient = 75% or more. Needs touching.) Locomotion- Stairs Device used on Stairs Handrail/s Number of Stairs Ascended/ 16 Descended Patient used handrail/support: Yes Stairs FIM Score 5. Supervision (12-14 stairs w/ supv. 4-6 stairs independently.) Locomotion- walk/wheelchair Most Frequent Mode of Walking Locomotion: Ambulation Distance 300 Walking FIM Score 4. Minimal Assistance (Patient = 75% or more. Minimum of 150 ft.) Wheelchair Propulsion Distance 100 Wheelchair FIM Score 6. Modified Leiter (Wheels a minimum of 150 ft.) Eating Eating FIM Score 6. Modified Leiter (Special consistency or uses device.) Dressing-Upper body Patient retrieves clothing Yes items: Patient applies/removes UE n/a prosthesis or orthosis: Upper Body Dressing FIM Score 6. Modified Leiter (Needs equipment, velcro or pros./orth.) Dressing-lower body Patient retrieves clothing Yes items: Patient applies/removes LE n/a prosthesis or orthosis: Lower Body Dressing FIM Score 5. Supv./Set-Up (Barnes sets out clothes or applies pros./orth.) - Labs CBC & Chem 7: 07/13/18 09:23 07/13/18 09:23 Labs: Laboratory Results - last 72 hr 07/08/18 07/09/18 07/09/18 22:04 12:11 17:46 WBC RBC Hgb Hct MCV MCH MCHC RDW Plt Count Lymph % (Auto) Cherry % (Auto) Eos % (Auto) Baso % (Auto) Lymph # Cherry # Eos # Baso # Add Manual Diff Total Counted Seg Neutrophils % Seg Neuts % (Manual) Band Neutrophils % Lymphocytes % (Manual) Reactive Lymphs % (Man) Monocytes % (Manual) Eosinophils % (Manual) Basophils % (Manual) Metamyelocytes % Myelocytes % Promyelocytes % Blast Cells % Nucleated RBC % Seg Neutrophils # Man Band Neutrophils # Lymphocytes # (Manual) Abs React Lymphs (Man) Monocytes # (Manual) Eosinophils # (Manual) Basophils # (Manual) Metamyelocytes # Myelocytes # Promyelocytes # Blast Cells # WBC Morphology Hypersegmented Neuts Hyposegmented Neuts Hypogranular Neuts Smudge Cells Toxic Granulation Toxic Vacuolation Dohle Bodies Pelger-Huet Anomaly Libby Rods Platelet Estimate Clumped Platelets Plt Clumps, EDTA Large Platelets Giant Platelets Platelet Satelliting Plt Morphology Comment RBC Morphology Dimorphic RBCs Polychromasia Hypochromasia Poikilocytosis Anisocytosis Microcytosis Macrocytosis Spherocytes Pappenheimer Bodies Sickle Cells Target Cells Tear Drop Cells Ovalocytes Helmet Cells [place] Bodies [place] Rings [place] Cells Bite Cells Crenated Cell Elliptocytes Acanthocytes (Spur) Rouleaux Hemoglobin C Crystals Schistocytes Malaria parasites Ted Bodies Hem Pathologist Commnt Sodium Potassium Chloride Carbon Dioxide Anion Gap BUN Creatinine Estimated GFR BUN/Creatinine Ratio Glucose POC Glucose 114 H 94 114 H Calcium Phosphorus Magnesium Total Bilirubin AST ALT Alkaline Phosphatase Total Protein Albumin Albumin/Globulin Ratio 07/11/18 07/11/18 07/12/18 16:22 20:59 05:44 WBC 5.5 RBC 4.40 Hgb 14.9 Hct 46.0 H MCV 105 H MCH 34 H MCHC 32 RDW 15.8 H Plt Count 175 Lymph % (Auto) Cherry % (Auto) Assessment Coordinator Eos % (Auto) Baso % (Auto) Lymph # Cherry # Eos # Baso # Add Manual Diff Complete Total Counted 100 Seg Neutrophils % Seg Neuts % (Manual) 54.0 Band Neutrophils % 0 Lymphocytes % (Manual) 27.0 Reactive Lymphs % (Man) 0 Monocytes % (Manual) 14.0 H Eosinophils % (Manual) 5.0 H Basophils % (Manual) 0 Metamyelocytes % 0 Myelocytes % 0 Promyelocytes % 0 Blast Cells % 0 Nucleated RBC % Not Reportable Seg Neutrophils # Man 3.0 Band Neutrophils # 0.0 Lymphocytes # (Manual) 1.5 Abs React Lymphs (Man) 0.0 Monocytes # (Manual) 0.8 Eosinophils # (Manual) 0.3 Basophils # (Manual) 0.0 Metamyelocytes # 0.0 Myelocytes # 0.0 Promyelocytes # 0.0 Blast Cells # 0.0 WBC Morphology Not Reportable Hypersegmented Neuts Not Reportable Hyposegmented Neuts Not Reportable Hypogranular Neuts Not Reportable Smudge Cells Not Reportable Toxic Granulation Not Reportable Toxic Vacuolation Not Reportable Dohle Bodies Not Reportable Pelger-Huet Anomaly Not Reportable Libby Rods Not Reportable Platelet Estimate Consistent w auto Clumped Platelets Not Reportable Plt Clumps, EDTA Not Reportable Large Platelets Not Reportable Giant Platelets Not Reportable Platelet Satelliting Not Reportable Plt Morphology Comment Not Reportable RBC Morphology Not Reportable Dimorphic RBCs Not Reportable Polychromasia Not Reportable Hypochromasia Not Reportable Poikilocytosis Not Reportable Anisocytosis 1+ Microcytosis Not Reportable Macrocytosis 1+ Spherocytes Not Reportable Pappenheimer Bodies Not Reportable Sickle Cells Not Reportable Target Cells Not Reportable Tear Drop Cells Not Reportable Ovalocytes Not Reportable Helmet Cells Not Reportable [place] Bodies Not Reportable [place] Rings Not Reportable Rajun Cells Not Reportable Bite Cells Not Reportable Crenated Cell Not Reportable Elliptocytes Not Reportable Acanthocytes (Spur) Not Reportable Rouleaux Not Reportable Hemoglobin C Crystals Not Reportable Schistocytes Not Reportable Malaria parasites Not Reportable Ted Bodies Not Reportable Hem Pathologist Commnt No Sodium Potassium Chloride Carbon Dioxide Anion Gap BUN Creatinine Estimated GFR BUN/Creatinine Ratio Glucose POC Glucose 137 H 160 H Calcium Phosphorus Magnesium Total Bilirubin AST ALT Alkaline Phosphatase Total Protein Albumin Albumin/Globulin Ratio 07/12/18 07/12/18 07/12/18 05:44 07:00 08:58 WBC RBC Hgb Hct MCV MCH MCHC RDW Plt Count Lymph % (Auto) Cherry % (Auto) Eos % (Auto) Baso % (Auto) Lymph # Cherry # Eos # Baso # Add Manual Diff Total Counted Seg Neutrophils % Seg Neuts % (Manual) Band Neutrophils % Lymphocytes % (Manual) Reactive Lymphs % (Man) Monocytes % (Manual) Eosinophils % (Manual) Basophils % (Manual) Metamyelocytes % Myelocytes % Promyelocytes % Blast Cells % Nucleated RBC % Seg Neutrophils # Man Band Neutrophils # Lymphocytes # (Manual) Abs React Lymphs (Man) Monocytes # (Manual) Eosinophils # (Manual) Basophils # (Manual) Metamyelocytes # Myelocytes # Promyelocytes # Blast Cells # WBC Morphology Hypersegmented Neuts Hyposegmented Neuts Hypogranular Neuts Smudge Cells Toxic Granulation Toxic Vacuolation Dohle Bodies Pelger-Huet Anomaly Libby Rods Platelet Estimate Clumped Platelets Plt Clumps, EDTA Large Platelets Giant Platelets Platelet Satelliting Plt Morphology Comment RBC Morphology Dimorphic RBCs Polychromasia Hypochromasia Poikilocytosis Anisocytosis Microcytosis Macrocytosis Spherocytes Pappenheimer Bodies Sickle Cells Target Cells Tear Drop Cells Ovalocytes Helmet Cells [place] Bodies [place] Rings [place] Cells Bite Cells Crenated Cell Elliptocytes Acanthocytes (Spur) Rouleaux Hemoglobin C Crystals Schistocytes Malaria parasites Ted Bodies Hem Pathologist Commnt Sodium TNR 139 Potassium TNR 5.5 H Chloride TNR 94.2 L Carbon Dioxide TNR 27 Anion Gap TNR 23 BUN TNR 47 H Creatinine TNR 8.9 H Estimated GFR TNR 7 BUN/Creatinine Ratio TNR 5 Glucose TNR 112 H POC Glucose 111 H Calcium TNR 10.0 Phosphorus Magnesium Total Bilirubin TNR 0.20 AST TNR 27 ALT TNR 32 Alkaline Phosphatase TNR 57 Total Protein TNR 8.2 Albumin TNR 4.2 Albumin/Globulin Ratio TNR 1.1 07/12/18 07/12/18 07/12/18 11:13 16:11 20:46 WBC RBC Hgb Hct MCV MCH MCHC RDW Plt Count Lymph % (Auto) Cherry % (Auto) Eos % (Auto) Baso % (Auto) Lymph # Cherry # Eos # Baso # Add Manual Diff Total Counted Seg Neutrophils % Seg Neuts % (Manual) Band Neutrophils % Lymphocytes % (Manual) Reactive Lymphs % (Man) Monocytes % (Manual) Eosinophils % (Manual) Basophils % (Manual) Metamyelocytes % Myelocytes % Promyelocytes % Blast Cells % Nucleated RBC % Seg Neutrophils # Man Band Neutrophils # Lymphocytes # (Manual) Abs React Lymphs (Man) Monocytes # (Manual) Eosinophils # (Manual) Basophils # (Manual) Metamyelocytes # Myelocytes # Promyelocytes # Blast Cells # WBC Morphology Hypersegmented Neuts Hyposegmented Neuts Hypogranular Neuts Smudge Cells Toxic Granulation Toxic Vacuolation Dohle Bodies Pelger-Huet Anomaly Libby Rods Platelet Estimate Clumped Platelets Plt Clumps, EDTA Large Platelets Giant Platelets Platelet Satelliting Plt Morphology Comment RBC Morphology Dimorphic RBCs Polychromasia Hypochromasia Poikilocytosis Anisocytosis Microcytosis Macrocytosis Spherocytes Pappenheimer Bodies Sickle Cells Target Cells Tear Drop Cells Ovalocytes Helmet Cells [place] Bodies [place] Rings [place] Cells Bite Cells Crenated Cell Elliptocytes Acanthocytes (Spur) Rouleaux Hemoglobin C Crystals Schistocytes Malaria parasites Ted Bodies Hem Pathologist Commnt Sodium Potassium Chloride Carbon Dioxide Anion Gap BUN Creatinine Estimated GFR BUN/Creatinine Ratio Glucose POC Glucose 84 82 110 H Calcium Phosphorus Magnesium Total Bilirubin AST ALT Alkaline Phosphatase Total Protein Albumin Albumin/Globulin Ratio 07/13/18 07/13/18 07/13/18 07:33 09:23 09:23 WBC 4.9 RBC 3.78 Hgb 12.7 Hct 38.9 D MCV 103 H MCH 34 H MCHC 33 RDW 15.1 Plt Count 195 Lymph % (Auto) 28.9 Cherry % (Auto) 12.1 H Eos % (Auto) 5.7 H Baso % (Auto) Assessment Coordinator Lymph # 1.4 Cherry # 0.6 Eos # 0.3 Baso # 0.1 Add Manual Diff Total Counted Seg Neutrophils % 51.2 Seg Neuts % (Manual) Band Neutrophils % Lymphocytes % (Manual) Reactive Lymphs % (Man) Monocytes % (Manual) Eosinophils % (Manual) Basophils % (Manual) Metamyelocytes % Myelocytes % Promyelocytes % Blast Cells % Nucleated RBC % Seg Neutrophils # Man Band Neutrophils # Lymphocytes # (Manual) Abs React Lymphs (Man) Monocytes # (Manual) Eosinophils # (Manual) Basophils # (Manual) Metamyelocytes # Myelocytes # Promyelocytes # Blast Cells # WBC Morphology Hypersegmented Neuts Hyposegmented Neuts Hypogranular Neuts Smudge Cells Toxic Granulation Toxic Vacuolation Dohle Bodies Pelger-Huet Anomaly Libby Rods Platelet Estimate Clumped Platelets Plt Clumps, EDTA Large Platelets Giant Platelets Platelet Satelliting Plt Morphology Comment RBC Morphology Dimorphic RBCs Polychromasia Hypochromasia Poikilocytosis Anisocytosis Microcytosis Macrocytosis Spherocytes Pappenheimer Bodies Sickle Cells Target Cells Tear Drop Cells Ovalocytes Helmet Cells [place] Bodies [place] Rings Arjun Cells Bite Cells Crenated Cell Elliptocytes Acanthocytes (Spur) Rouleaux Hemoglobin C Crystals Schistocytes Malaria parasites Ted Bodies Hem Pathologist Commnt Sodium 139 Potassium 5.1 H Chloride 91.0 L Carbon Dioxide 26 Anion Gap 27 BUN 61 H Creatinine 10.3 H Estimated GFR 6 BUN/Creatinine Ratio 6 Glucose 104 H POC Glucose 137 H Calcium 9.8 Phosphorus 6.20 H Magnesium 2.70 H Total Bilirubin 0.20 AST 25 ALT 25 Alkaline Phosphatase 57 Total Protein 8.0 Albumin 4.1 Albumin/Globulin Ratio 1.1 07/13/18 07/13/18 07/13/18 11:14 16:56 22:37 WBC RBC Hgb Hct MCV MCH MCHC RDW Plt Count Lymph % (Auto) Cherry % (Auto) Eos % (Auto) Baso % (Auto) Lymph # Cherry # Eos # Baso # Add Manual Diff Total Counted Seg Neutrophils % Seg Neuts % (Manual) Band Neutrophils % Lymphocytes % (Manual) Reactive Lymphs % (Man) Monocytes % (Manual) Eosinophils % (Manual) Basophils % (Manual) Metamyelocytes % Myelocytes % Promyelocytes % Blast Cells % Nucleated RBC % Seg Neutrophils # Man Band Neutrophils # Lymphocytes # (Manual) Abs React Lymphs (Man) Monocytes # (Manual) Eosinophils # (Manual) Basophils # (Manual) Metamyelocytes # Myelocytes # Promyelocytes # Blast Cells # WBC Morphology Hypersegmented Neuts Hyposegmented Neuts Hypogranular Neuts Smudge Cells Toxic Granulation Toxic Vacuolation Dohle Bodies Pelger-Huet Anomaly Libby Rods Platelet Estimate Clumped Platelets Plt Clumps, EDTA Large Platelets Giant Platelets Platelet Satelliting Plt Morphology Comment RBC Morphology Dimorphic RBCs Polychromasia Hypochromasia Poikilocytosis Anisocytosis Microcytosis Macrocytosis Spherocytes Pappenheimer Bodies Sickle Cells Target Cells Tear Drop Cells Ovalocytes Helmet Cells [place] Bodies [place] Rings [place] Cells Bite Cells Crenated Cell Elliptocytes Acanthocytes (Spur) Rouleaux Hemoglobin C Crystals Schistocytes Malaria parasites Ted Bodies Hem Pathologist Commnt Sodium Potassium Chloride Carbon Dioxide Anion Gap BUN Creatinine Estimated GFR BUN/Creatinine Ratio Glucose POC Glucose 90 111 H 133 H Calcium Phosphorus Magnesium Total Bilirubin AST ALT Alkaline Phosphatase Total Protein Albumin Albumin/Globulin Ratio 07/14/18 07:41 WBC RBC Hgb Hct MCV MCH MCHC RDW Plt Count Lymph % (Auto) Cherry % (Auto) Eos % (Auto) Baso % (Auto) Lymph # Cherry # Eos # Baso # Add Manual Diff Total Counted Seg Neutrophils % Seg Neuts % (Manual) Band Neutrophils % Lymphocytes % (Manual) Reactive Lymphs % (Man) Monocytes % (Manual) Eosinophils % (Manual) Basophils % (Manual) Metamyelocytes % Myelocytes % Promyelocytes % Blast Cells % Nucleated RBC % Seg Neutrophils # Man Band Neutrophils # Lymphocytes # (Manual) Abs React Lymphs (Man) Monocytes # (Manual) Eosinophils # (Manual) Basophils # (Manual) Metamyelocytes # Myelocytes # Promyelocytes # Blast Cells # WBC Morphology Hypersegmented Neuts Hyposegmented Neuts Hypogranular Neuts Smudge Cells Toxic Granulation Toxic Vacuolation Dohle Bodies Pelger-Huet Anomaly Libby Rods Platelet Estimate Clumped Platelets Plt Clumps, EDTA Large Platelets Giant Platelets Platelet Satelliting Plt Morphology Comment RBC Morphology Dimorphic RBCs Polychromasia Hypochromasia Poikilocytosis Anisocytosis Microcytosis Macrocytosis Spherocytes Pappenheimer Bodies Sickle Cells Target Cells Tear Drop Cells Ovalocytes Helmet Cells [place] Bodies [place] Rings Arjun Cells Bite Cells Crenated Cell Elliptocytes Acanthocytes (Spur) Rouleaux Hemoglobin C Crystals Schistocytes Malaria parasites Ted Bodies Hem Pathologist Commnt Sodium Potassium Chloride Carbon Dioxide Anion Gap BUN Creatinine Estimated GFR BUN/Creatinine Ratio Glucose POC Glucose 120 H Calcium Phosphorus Magnesium Total Bilirubin AST ALT Alkaline Phosphatase Total Protein Albumin Albumin/Globulin Ratio Assessment and Plan 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 Monitor for changes and neuro status. Monitor for post stroke depression as well as shoulder-hand syndrome. I69.322 dysarthria: Speech and language pathology will assess in assist patient with return of function including strategies to help project voice and improved speech intelligibility. I69.391 dysphagia: Advanced to regular diet by LOGISTICS ANALYTICS MANAGER,monitor progress Z73.6 ADL dysfunction: OT will work on improving ability to perform ADLs (including assistive devices) to increase independence and decrease caregiver burden and improve functional transfers and mobility training. R26.2 Difficulty walking: PT will work on gait training and proper use of assistive devices and advance as appropriate to use of stairs and outside ambulation on uneven surfaces. R26.81 Unsteadiness on feet: PT will work on improving static and dynamic sitting and standing balance as well as proper use of assistive devices to decrease risk of falls. R26.89 Abnormality of gait: PT will work to improve safety and efficiency of gait through neuromotor training and gait training along with instruction on proper use of assistive devices. M62.81 Muscle weakness: PT & OT will work on strengthening exercises to improve functional strength including mixture of closed and open kinetic chain exercises. R53.81 Debility: PT & OT will work on improving overall functional status to improve participation with ADLs, mobility and social involvement. R53.83 Fatigue: PT & OT will work on improving endurance through aerobic exercises and therapeutic activity while monitoring patients tolerance for activity and vital signs as needed. Right shoulder pain - XR showed mild OA changes KUB -nonobstructive bowel gas pattern Consults: Internal medicine consulted for management of diabetes, hypertension, CHF. Appreciate their assistance Nephrology consulted for management of end-stage renal disease and electrolytes. Appreciate their assistance DVT ppx: Heparin Pain: Continue physical modalities in therapy and pain medications as needed to achieve functional pain control. Sleep: Monitor and address as needed. Bowel: Monitor and address as needed. Appetite: Monitor and address as needed. Discharge planning: Pending therapy progress and care plan meeting. Will continue discussion with therapy team, SW, patient and family. Restrictions/ Precautions: Falls, seizures WB status: FWB Functional Hx: ADLs: Independent Cognition: Independent Mobility: Cane, single-point Barriers to Discharge: Decreased mobility and ability to perform self care, balance deficits, weakness, dysphagia, dysarthria, poor safety awareness Estimated Length of Stay: 1421 days - based on recovery seen so far, will look to discharge home on Friday after family training Discharge Destination: Home with family
[2018-07-14] MEDS: COZAAR PO SCH (13:26)
--- NOTE | 2018-07-14 13:43 | Progress Note ---
Assessment and Plan Assessment and plan: This is 63 yo M with past medical history of hypertension, CAD, ESRD on HD on MWF schedule, who was recently hospitalized at [facility] for acute CVA from 07/03 - 07/06, after presenting with slurred speech, Rt upper/lower extremity weakness, required tPA treatment on 07/03, after which symptoms improved to some degree. pt was then transferred to [facility] for acute rehab on 07/07, medicine service consult is requested for medical management. Acute CVA, - s/p tPA treatmet, cont PT/OT - cont aspirin and statin, monitor BP. hyperkalemia, monitor BMP, should correct with HD, kayexalate as needed Peripheral neuropathy. neurontin if needed ESRD. Continue Friday, nephrology following Anemia chronic disease, h/h stable Diabetes mellitus type 2 - insulin regimen adjust as needed CAD. Patient with coronary artery disease status post multivessel PCI. cont medical mx - will follow with you Hypertension - Uncontrolled, continue current medications and I added hydralazine 50 mg by mouth 3 times a day History Interval history: Patient was seen and divided this morning, patient was walking around with his PT. weakness is getting better. Hospitalist Physical - Physical exam Narrative exam: Not in cardiopulmonary distress. The patient appeared well nourished and normally developed. Vital signs as documented. Head exam is unremarkable. No scleral icterus . Neck is without jugular venous distension, thyromegaly, or carotid bruits. Lungs are clear to auscultation. Cardiac exam reveals regular rate and Rhythm. First and second heart sounds normal. No murmurs, rubs or gallops. Abdominal exam reveals normal bowel sounds, no masses, no organomegaly and no aortic enlargement. Extremities are nonedematous and both femoral and pedal pulses are normal. [employer]: Alert and oriented 3. Mild right-sided weakness. - Constitutional Vitals: Temp Pulse Resp BP Pulse Ox 98.1 F 61 18 168/89 95 07/14/18 11:50 07/14/18 11:50 07/14/18 11:50 07/14/18 11:50 07/14/18 11:50 General appearance: Present: no acute distress, well-nourished Results - Labs CBC & Chem 7: 07/13/18 09:23 07/13/18 09:23 Labs: Laboratory Last Values WBC 4.9 K/mm3 (4.5-11.0) 07/13/18 09:23 RBC 3.78 M/mm3 (3.65-5.03) 07/13/18 09:23 Hgb 12.7 gm/dl (11.8-15.2) 07/13/18 09:23 Hct 38.9 % (35.5-45.6) D 07/13/18 09:23 MCV 103 fl (84-94) H 07/13/18 09:23 MCH 34 pg (28-32) H 07/13/18 09:23 MCHC 33 % (32-34) 07/13/18 09:23 RDW 15.1 % (13.2-15.2) 07/13/18 09:23 Plt Count 195 K/mm3 (140-440) 07/13/18 09:23 Lymph % (Auto) 28.9 % (13.4-35.0) 07/13/18 09:23 [place] % (Auto) 12.1 % (0.0-7.3) H 07/13/18 09:23 Eos % (Auto) 5.7 % (0.0-4.3) H 07/13/18 09:23 Baso % (Auto) [employer] 07/13/18 09:23 Lymph # 1.4 K/mm3 (1.2-5.4) 07/13/18 09:23 [place] # 0.6 K/mm3 (0.0-0.8) 07/13/18 09:23 Eos # 0.3 K/mm3 (0.0-0.4) 07/13/18 09:23 Baso # 0.1 K/mm3 (0.0-0.1) 07/13/18 09:23 Add Manual Diff Complete 07/12/18 05:44 Total Counted 100 07/12/18 05:44 Seg Neutrophils % 51.2 % (40.0-70.0) 07/13/18 09:23 Seg Neuts % (Manual) 54.0 % (40.0-70.0) 07/12/18 05:44 0 % 07/12/18 05:44 27.0 % (13.4-35.0) 07/12/18 05:44 Reactive Lymphs % (Man) 0 % 07/12/18 05:44 14.0 % (0.0-7.3) H 07/12/18 05:44 5.0 % (0.0-4.3) H 07/12/18 05:44 0 % (0.0-1.8) 07/12/18 05:44 0 % 07/12/18 05:44 0 % 07/12/18 05:44 0 % 07/12/18 05:44 0 % 07/12/18 05:44 Nucleated RBC % Not Reportable 07/12/18 05:44 Seg Neutrophils # 5.9 K/mm3 (1.8-7.7) 07/08/18 06:55 Seg Neutrophils # Man 3.0 K/mm3 (1.8-7.7) 07/12/18 05:44 Band Neutrophils # 0.0 K/mm3 07/12/18 05:44 1.5 K/mm3 (1.2-5.4) 07/12/18 05:44 Abs React Lymphs (Man) 0.0 K/mm3 07/12/18 05:44 0.8 K/mm3 (0.0-0.8) 07/12/18 05:44 0.3 K/mm3 (0.0-0.4) 07/12/18 05:44 0.0 K/mm3 (0.0-0.1) 07/12/18 05:44 0.0 K/mm3 07/12/18 05:44 0.0 K/mm3 07/12/18 05:44 0.0 K/mm3 07/12/18 05:44 Blast Cells # 0.0 K/mm3 07/12/18 05:44 WBC Morphology Not Reportable 07/12/18 05:44 Hypersegmented Neuts Not Reportable 07/12/18 05:44 Hyposegmented Neuts Not Reportable 07/12/18 05:44 Hypogranular Neuts Not Reportable 07/12/18 05:44 Not Reportable 07/12/18 05:44 Not Reportable 07/12/18 05:44 Not Reportable 07/12/18 05:44 Not Reportable 07/12/18 05:44 Not Reportable 07/12/18 05:44 Not Reportable 07/12/18 05:44 Consistent w auto 07/12/18 05:44 Not Reportable 07/12/18 05:44 Plt Clumps, EDTA Not Reportable 07/12/18 05:44 Not Reportable 07/12/18 05:44 Not Reportable 07/12/18 05:44 Not Reportable 07/12/18 05:44 Plt Morphology Comment Not Reportable 07/12/18 05:44 RBC Morphology Not Reportable 07/12/18 05:44 Dimorphic RBCs Not Reportable 07/12/18 05:44 Not Reportable 07/12/18 05:44 Not Reportable 07/12/18 05:44 Not Reportable 07/12/18 05:44 1+ 07/12/18 05:44 Not Reportable 07/12/18 05:44 1+ 07/12/18 05:44 Not Reportable 07/12/18 05:44 Not Reportable 07/12/18 05:44 Not Reportable 07/12/18 05:44 Not Reportable 07/12/18 05:44 Not Reportable 07/12/18 05:44 Not Reportable 07/12/18 05:44 Not Reportable 07/12/18 05:44 Not Reportable 07/12/18 05:44 Not Reportable 07/12/18 05:44 Not Reportable 07/12/18 05:44 Not Reportable 07/12/18 05:44 Not Reportable 07/12/18 05:44 Not Reportable 07/12/18 05:44 Acanthocytes (Spur) Not Reportable 07/12/18 05:44 Rouleaux Not Reportable 07/12/18 05:44 Not Reportable 07/12/18 05:44 Not Reportable 07/12/18 05:44 Not Reportable 07/12/18 05:44 Not Reportable 07/12/18 05:44 Hem Pathologist Commnt No 07/12/18 05:44 Sodium 139 mmol/L (137-145) 07/13/18 09:23 Potassium 5.1 mmol/L (3.6-5.0) H 07/13/18 09:23 Chloride 91.0 mmol/L (98-107) L 07/13/18 09:23 Carbon Dioxide 26 mmol/L (22-30) 07/13/18 09:23 27 mmol/L 07/13/18 09:23 BUN 61 mg/dL (9-20) H 07/13/18 09:23 10.3 mg/dL (0.8-1.5) H 07/13/18 09:23 Estimated GFR 6 ml/min 07/13/18 09:23 6 % 07/13/18 09:23 Glucose 104 mg/dL (75-100) H 07/13/18 09:23 POC Glucose 148 (70-105) H 07/14/18 13:19 4.7 % (4-6) 07/08/18 06:55 Calcium 9.8 mg/dL (8.4-10.2) 07/13/18 09:23 Phosphorus 6.20 mg/dL (2.5-4.5) H 07/13/18 09:23 Magnesium 2.70 mg/dL (1.7-2.3) H 07/13/18 09:23 0.20 mg/dL (0.1-1.2) 07/13/18 09:23 AST 25 units/L (5-40) 07/13/18 09:23 ALT 25 units/L (7-56) 07/13/18 09:23 57 units/L (35-129) 07/13/18 09:23 8.0 g/dL (6.3-8.2) 07/13/18 09:23 4.1 g/dL (3.9-5) 07/13/18 09:23 1.1 % 07/13/18 09:23 Triglycerides 52 mg/dL (2-149) 07/08/18 06:55 Cholesterol 141 mg/dL (50-199) 07/08/18 06:55 46 mg/dL (50-130) L 07/08/18 06:55 79 mg/dL (40-59) H 07/08/18 06:55 1.78 % 07/08/18 06:55 Vitamin B12 1706 pg/mL (211-911) H 07/08/18 09:18 Active Medications - Current Medications Current Medications: Generic Name Dose Route Start Last Admin Trade Name Freq PRN Reason Stop Dose Admin Acetaminophen 500 mg 07/07/18 16:14 07/13/18 17:22 Tylenol PO 500 mg Q6H PRN Administration Pain, Mild (1-3) Al Hydrox/Mg Hydrox/Simethicone 15 ml 07/09/18 14:01 07/11/18 10:02 Alum-Mag Hydrox-Simeth 073-413-07vo/5ml PO 15 ml Q4H PRN Administration Indigestion Aspirin 81 mg 07/13/18 08:00 07/14/18 09:30 Baby Aspirin PO 81 mg QDAY GORDO Administration Atorvastatin Calcium 40 mg 07/07/18 21:00 07/13/18 21:57 Lipitor PO 40 mg QHS GORDO Administration Bisacodyl 10 mg 07/07/18 16:14 Dulcolax ND QDAY PRN Constipation Calcium Carbonate/Glycine 1,000 mg 07/08/18 11:30 07/09/18 05:10 Tums PO 1,000 mg Q6H PRN Administration Indigestion Dextrose 50 ml 07/07/18 15:48 D50w (25gm) Syringe IV PRN PRN Hypoglycemia Docusate Sodium 100 mg 07/07/18 22:00 07/14/18 09:29 Colace PO 100 mg BID GORDO Administration Ergocalciferol 50,000 unit 07/13/18 10:00 07/13/18 12:34 Vitamin D2 PO 50,000 unit Mo GORDO Administration Famotidine 20 mg 07/09/18 15:00 07/14/18 09:29 Pepcid PO 20 mg QDAY GORDO Administration Furosemide 40 mg 07/08/18 08:00 07/14/18 09:29 Lasix PO 40 mg QDAY GORDO Administration Gabapentin 100 mg 07/12/18 22:00 07/14/18 09:29 Neurontin PO 100 mg BID GORDO Administration Heparin Sodium (Porcine) 5,000 unit 07/07/18 22:00 07/14/18 13:23 Heparin SUB-Q 5,000 unit Q8HR GORDO Administration Hydralazine HCl 50 mg 07/14/18 14:00 Apresoline PO Q8HR GORDO Hydroxyzine HCl 25 mg 07/10/18 17:06 07/13/18 17:21 Atarax PO 25 mg Q6H PRN Administration Itching Hydroxyzine HCl 50 mg 07/13/18 08:00 07/14/18 13:17 Atarax PO 50 mg TID GORDO Administration Sodium Chloride 100 mls @ 999 mls/hr 07/08/18 10:00 Nacl 0.9% IV JEANINE PRN Hypotension Insulin Human Lispro 0 unit 07/07/18 16:30 07/14/18 13:17 Humalog SUB-Q Not Given ACHS [facility] Protocol Losartan Potassium 50 mg 07/12/18 12:00 07/14/18 13:26 Cozaar PO 50 mg QDAY GORDO Administration Metoprolol Tartrate 25 mg 07/07/18 22:00 07/14/18 09:29 Lopressor PO 25 mg BID GORDO Administration Multivit/Ca Carb/B Cmplx/FA/Prenat 1 cap 07/12/18 21:00 07/14/18 09:32 Renal Caps PO 1 cap DAILY GORDO Administration Ondansetron HCl 4 mg 07/07/18 16:17 Zofran Odt PO Q8H PRN Nausea And Vomiting Sevelamer Carbonate 2,400 mg 07/08/18 07:30 07/14/18 13:18 Renvela PO 2,400 mg AC GORDO Administration Simethicone 80 mg 07/11/18 08:45 Mylicon PO Q6H PRN Gas pain Nutrition/Malnutrition Assess - Dietary Evaluation Nutrition/Malnutrition Findings: Nutrition Notes Start: 07/08/18 14:15 Freq: Status: Active Protocol: Document 07/08/18 14:15 DANGELO (Rec: 07/08/18 14:18 DANGELO [id number]) Nutrition Notes Need for Assessment generated from: MD Order,Education Initial or Follow up Brief Note Current Diagnosis CKD (stage V CKD),Coronary Artery Disease,Diabetes, Hypertension,Heart Failure, Hyperlipidemia Other Pertinent Diagnosis CVA with (R) hemiparesis Current Diet Renal/Consistent CHO mech soft Labs/Tests K 5.1 BUN 48 Cr 10.2 A1C 4.7 Pertinent Medications Lasix, Renvela Subjective/Other Information RD consulted for diet education; pt also screened for chewing difficulty (sec to CVA). Pt reports good appetite and is aware of foods contraindicated on a renal diet. He denies need for diet education at this time. Burn Absent Trauma Absent Nutrition Intervention Follow-Up By: 07/15/18 Additional Comments F/U: stable intakes, wt
[2018-07-14] MEDS: APRESOLINE PO SCH ×2 (17:28→22:19)
[2018-07-15] MEDS: APRESOLINE PO SCH ×3 (06:18→22:44)
[2018-07-15] MEDS: HEPARIN SUB-Q SCH ×3 (06:18→22:44)
--- NOTE | 2018-07-15 09:52 | Progress Note ---
Assessment and Plan - Patient Problems (1) Hyperkalemia Current Visit: No Status: Acute Plan to address problem: cont 2g k renal diet, cont HD on MWF schedule. recommend to hold HUNTER-I/ARB given persistent hyperkalemia. discussed with Dr Mitchell (2) Hypertensive chronic kidney disease with stage 5 chronic kidney disease or end stage renal disease Current Visit: Yes Status: Acute Plan to address problem: monitor BP on current meds incl. hydralazine, metoprolol, lasix. will adjust UF for further volume/BP control. (3) End stage renal disease on dialysis Current Visit: No Status: Chronic Plan to address problem: cont HD on MWF schedule (4) Acute cerebrovascular accident Current Visit: Yes Status: Acute Plan to address problem: s/p tPA treatment, on ASA, cont PT/OT Subjective Date of service: 07/15/18 Principal diagnosis: CVA with right hemiparesis, ESRD A on HD on MWF, T2 DM, CAD. Interval history: Pt awake, alert, in no acute distress. receiving PT Objective - Vital Signs Vital signs: Vital Signs - 12hr 07/14/18 07/14/18 07/14/18 22:14 22:19 23:18 Temperature 98.3 F Pulse Rate 74 78 85 Respiratory 18 Rate Blood Pressure 134/75 134/78 118/69 Blood Pressure [Left] O2 Sat by Pulse 98 Oximetry 07/15/18 07/15/18 07/15/18 05:10 06:18 07:01 Temperature 97.9 F Pulse Rate 78 74 76 Respiratory 18 Rate Blood Pressure 170/99 170/99 Blood Pressure [Left] O2 Sat by Pulse 96 96 Oximetry 07/15/18 07:30 Temperature 97.4 F L Pulse Rate 84 Respiratory 18 Rate Blood Pressure Blood Pressure 144/71 [Left] O2 Sat by Pulse Oximetry - General Appearance General appearance: well-developed, well-nourished, appears stated age EENT: ATNC, PERRL, mucous membranes moist Neck: no JVD Respiratory: Present: Clear to Ascultation Cardiology: regular, S1S2 Gastrointestinal: normoactive bowel sounds Integumentary: no rash, other (no edema ) Neurologic: no focal deficit, alert and oriented x3, strength 5/5, CN 3-12 intact Psychiatric: mood/affect appropriate, cooperative - Lab 07/13/18 09:23 07/13/18 09:23 Most recent lab results Calcium 9.8 mg/dL (8.4-10.2) 07/13/18 09:23 Phosphorus 6.20 mg/dL (2.5-4.5) H 07/13/18 09:23 Magnesium 2.70 mg/dL (1.7-2.3) H 07/13/18 09:23 Medications & Allergies - Medications Allergies/Adverse Reactions: Allergies No Known Allergies Allergy (Verified 02/28/17 00:21) Home Medications: Home Medications Medication Instructions Recorded Confirmed Last Taken Type Rosuvastatin Calcium [Crestor] 20 mg PO QHS 07/03/17 07/09/18 1 Day Ago History ~03/10/18 Sevelamer Carbonate [Renvela] 2,400 mg PO TIDWM 07/03/17 07/09/18 1 Day Ago History ~03/10/18 Aspirin [Aspirin BABY CHEW TAB] 81 mg PO QDAY #30 tab.chew 07/05/17 07/09/18 1 Day Ago Rx ~03/10/18 B Complex 11/Folic/C/Biot/Zinc 1 each PO DAILY 02/13/18 07/09/18 1 Day Ago History [Dialyvite with Zinc Tablet] ~03/10/18 Ergocalciferol (Vitamin D2) 50,000 unit PO QWEEK 02/13/18 07/09/18 1 Day Ago History [Drisdol] ~03/10/18 Omeprazole 20 mg PO QDAY 02/13/18 07/09/18 1 Day Ago History ~03/10/18 ISOSORBIDE MONOnitrate [Imdur ER] 30 mg PO DAILY #30 tablet 02/14/18 07/09/18 1 Day Ago Rx ~03/10/18 Metoprolol [Lopressor TAB] 12.5 mg PO BID #30 tablet 02/14/18 07/09/18 1 Day Ago Rx ~03/10/18 Gabapentin [Neurontin] 100 mg PO BID #60 capsule 05/03/18 07/09/18 Unknown Rx Verapamil [Calan] 80 mg PO Q8HR #90 tablet 05/03/18 07/09/18 Unknown Rx Hydroxyzine HCl [hydrOXYzine] 50 mg PO TID 05/14/18 07/09/18 Unknown History traMADol [Ultram 50 MG tab] 50 mg PO Q6HR PRN 05/14/18 07/09/18 Unknown History Active Medications: Generic Name Dose Route Start Last Admin Trade Name [place]lette PRN Reason Stop Dose Admin Acetaminophen 500 mg 07/07/18 16:14 07/13/18 17:22 Tylenol PO 500 mg Q6H PRN Administration Pain, Mild (1-3) Al Hydrox/Mg Hydrox/Simethicone 15 ml 07/09/18 14:01 07/11/18 10:02 Alum-Mag Hydrox-Simeth 393-210-09cq/5ml PO 15 ml Q4H PRN Administration Indigestion Aspirin 325 mg 07/15/18 08:00 Ecotrin PO QDAY GORDO Atorvastatin Calcium 40 mg 07/07/18 21:00 07/14/18 22:13 Lipitor PO 40 mg QHS GORDO Administration Bisacodyl 10 mg 07/07/18 16:14 Dulcolax [place] QDAY PRN Constipation Calcium Carbonate/Glycine 1,000 mg 07/08/18 11:30 07/09/18 05:10 Tums PO 1,000 mg Q6H PRN Administration Indigestion Dextrose 50 ml 07/07/18 15:48 D50w (25gm) Syringe IV PRN PRN Hypoglycemia Docusate Sodium 100 mg 07/07/18 22:00 07/14/18 22:12 Colace PO 100 mg BID GORDO Administration Ergocalciferol 50,000 unit 07/13/18 10:00 07/13/18 12:34 Vitamin D2 PO 50,000 unit Mo GORDO Administration Famotidine 20 mg 07/09/18 15:00 07/14/18 09:29 Pepcid PO 20 mg QDAY GORDO Administration Furosemide 40 mg 07/08/18 08:00 07/14/18 09:29 Lasix PO 40 mg QDAY GORDO Administration Gabapentin 100 mg 07/12/18 22:00 07/14/18 22:14 Neurontin PO 100 mg BID GORDO Administration Heparin Sodium (Porcine) 5,000 unit 07/07/18 22:00 07/15/18 06:18 Heparin SUB-Q 5,000 unit Q8HR GORDO Administration Hydralazine HCl 50 mg 07/14/18 14:00 07/15/18 06:18 Apresoline PO 50 mg Q8HR GORDO Administration Hydroxyzine HCl 25 mg 07/10/18 17:06 07/13/18 17:21 Atarax PO 25 mg Q6H PRN Administration Itching Hydroxyzine HCl 50 mg 07/13/18 08:00 07/14/18 22:12 Atarax PO 50 mg TID GORDO Administration Sodium Chloride 100 mls @ 999 mls/hr 07/08/18 10:00 Nacl 0.9% IV JEANINE PRN Hypotension Insulin Human Lispro 0 unit 07/07/18 16:30 07/14/18 22:18 Humalog SUB-Q 2 unit ACHS GORDO Administration Protocol Metoprolol Tartrate 25 mg 07/07/18 22:00 07/14/18 22:14 Lopressor PO 25 mg BID GORDO Administration Multivit/Ca Carb/B Cmplx/FA/Prenat 1 cap 07/12/18 21:00 07/14/18 09:32 Renal Caps PO 1 cap DAILY GORDO Administration Ondansetron HCl 4 mg 07/07/18 16:17 Zofran Odt PO Q8H PRN Nausea And Vomiting Sevelamer Carbonate 2,400 mg 07/08/18 07:30 07/14/18 17:23 Renvela PO 2,400 mg AC GORDO Administration Simethicone 80 mg 07/11/18 08:45 Mylicon PO Q6H PRN Gas pain
[2018-07-15] MEDS: HumaLOG SUB-Q SCH ×3 (10:50→18:00)
[2018-07-15] MEDS: COLACE PO SCH ×2 (11:15→22:43)
[2018-07-15] MEDS: NEURONTIN PO SCH ×2 (11:16→22:45)
[2018-07-15] MEDS: RENVELA PO SCH ×3 (11:16→14:00)
[2018-07-15] MEDS: LASIX PO SCH (11:17)
[2018-07-15] MEDS: ECOTRIN PO SCH (11:17)
[2018-07-15] MEDS: LOPRESSOR PO SCH ×2 (11:18→22:43)
[2018-07-15] MEDS: PEPCID PO SCH (11:22)
[2018-07-15] MEDS: Renal Caps PO SCH (11:23)
[2018-07-15] MEDS: ATARAX PO SCH ×3 (11:24→22:45)
--- NOTE | 2018-07-15 11:48 | Progress Note ---
Assessment and Plan Assessment and plan: This is 63 yo M with past medical history of hypertension, CAD, ESRD on HD on MWF schedule, who was recently hospitalized at [facility] for acute CVA from 07/03 - 07/06, after presenting with slurred speech, Rt upper/lower extremity weakness, required tPA treatment on 07/03, after which symptoms improved to some degree. pt was then transferred to [facility] for acute rehab on 07/07, medicine service consult is requested for medical management. Acute CVA, - s/p tPA treatmet, cont PT/OT - cont aspirin and statin, monitor BP. hyperkalemia, monitor BMP, should correct with HD, kayexalate as needed Peripheral neuropathy. neurontin if needed ESRD. Continue Friday, nephrology following Anemia chronic disease, h/h stable Diabetes mellitus type 2 - insulin regimen adjust as needed CAD. Patient with coronary artery disease status post multivessel PCI. cont medical mx - will follow with you Hypertension - Uncontrolled, continue current medications and I added hydralazine 50 mg by mouth 3 times a day 07/15. Blood pressure was controlled overnight but slightly elevated this morning. We'll continue to monitor. History Interval history: Patient was seen and evaluated this morning, patient didn't have any complaints. No nursing issues reported to me overnight. Hospitalist Physical - Physical exam Narrative exam: Not in cardiopulmonary distress. The patient appeared well nourished and normally developed. Vital signs as documented. Head exam is unremarkable. No scleral icterus . Neck is without jugular venous distension, thyromegaly, or carotid bruits. Lungs are clear to auscultation. Cardiac exam reveals regular rate and Rhythm. First and second heart sounds normal. No murmurs, rubs or gallops. Abdominal exam reveals normal bowel sounds, no masses, no organomegaly and no aortic enlargement. Extremities are nonedematous and both femoral and pedal pulses are normal. 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 Mild right-sided weakness. - Constitutional Vitals: Temp Pulse Resp BP Pulse Ox 97.4 F L 84 18 144/71 96 07/15/18 07:30 07/15/18 07:30 07/15/18 07:30 07/15/18 11:18 07/15/18 07:01 General appearance: Present: no acute distress, well-nourished Results - Labs CBC & Chem 7: 06/03/19 09:23 07/13/18 09:23 Labs: Laboratory Last Values WBC 4.9 K/mm3 (4.5-11.0) 07/13/18 09:23 RBC 3.78 M/mm3 (3.65-5.03) 07/13/18 09:23 Hgb 12.7 gm/dl (11.8-15.2) 07/13/18 09:23 Hct 38.9 % (35.5-45.6) D 07/13/18 09:23 MCV 103 fl (84-94) H 07/13/18 09:23 MCH 34 pg (28-32) H 07/13/18 09:23 MCHC 33 % (32-34) 07/13/18 09:23 RDW 15.1 % (13.2-15.2) 07/13/18 09:23 Plt Count 195 K/mm3 (140-440) 07/13/18 09:23 Lymph % (Auto) 28.9 % (13.4-35.0) 07/13/18 09:23 Phillips % (Auto) 12.1 % (0.0-7.3) H 07/13/18 09:23 Eos % (Auto) 5.7 % (0.0-4.3) H 07/13/18 09:23 Baso % (Auto) Thread Grinder Tool 07/13/18 09:23 Lymph # 1.4 K/mm3 (1.2-5.4) 07/13/18 09:23 Phillips # 0.6 K/mm3 (0.0-0.8) 07/13/18 09:23 Eos # 0.3 K/mm3 (0.0-0.4) 07/13/18 09:23 Baso # 0.1 K/mm3 (0.0-0.1) 07/13/18 09:23 Add Manual Diff Complete 07/12/18 05:44 Total Counted 100 07/12/18 05:44 Seg Neutrophils % 51.2 % (40.0-70.0) 07/13/18 09:23 Seg Neuts % (Manual) 54.0 % (40.0-70.0) 07/12/18 05:44 0 % 07/12/18 05:44 27.0 % (13.4-35.0) 07/12/18 05:44 Reactive Lymphs % (Man) 0 % 07/12/18 05:44 14.0 % (0.0-7.3) H 07/12/18 05:44 5.0 % (0.0-4.3) H 07/12/18 05:44 0 % (0.0-1.8) 07/12/18 05:44 0 % 07/12/18 05:44 0 % 07/12/18 05:44 0 % 07/12/18 05:44 0 % 07/12/18 05:44 Nucleated RBC % Not Reportable 07/12/18 05:44 Seg Neutrophils # 5.9 K/mm3 (1.8-7.7) 07/08/18 06:55 Seg Neutrophils # Man 3.0 K/mm3 (1.8-7.7) 07/12/18 05:44 Band Neutrophils # 0.0 K/mm3 07/12/18 05:44 1.5 K/mm3 (1.2-5.4) 07/12/18 05:44 Abs React Lymphs (Man) 0.0 K/mm3 07/12/18 05:44 0.8 K/mm3 (0.0-0.8) 07/12/18 05:44 0.3 K/mm3 (0.0-0.4) 07/12/18 05:44 0.0 K/mm3 (0.0-0.1) 07/12/18 05:44 0.0 K/mm3 07/12/18 05:44 0.0 K/mm3 07/12/18 05:44 0.0 K/mm3 07/12/18 05:44 Blast Cells # 0.0 K/mm3 07/12/18 05:44 WBC Morphology Not Reportable 07/12/18 05:44 Hypersegmented Neuts Not Reportable 07/12/18 05:44 Hyposegmented Neuts Not Reportable 07/12/18 05:44 Hypogranular Neuts Not Reportable 07/12/18 05:44 Not Reportable 07/12/18 05:44 Not Reportable 07/12/18 05:44 Not Reportable 07/12/18 05:44 Not Reportable 07/12/18 05:44 Not Reportable 07/12/18 05:44 Not Reportable 07/12/18 05:44 Consistent w auto 07/12/18 05:44 Not Reportable 07/12/18 05:44 Plt Clumps, EDTA Not Reportable 07/12/18 05:44 Not Reportable 07/12/18 05:44 Not Reportable 07/12/18 05:44 Not Reportable 07/12/18 05:44 Plt Morphology Comment Not Reportable 07/12/18 05:44 RBC Morphology Not Reportable 07/12/18 05:44 Dimorphic RBCs Not Reportable 07/12/18 05:44 Not Reportable 07/12/18 05:44 Not Reportable 07/12/18 05:44 Not Reportable 07/12/18 05:44 1+ 07/12/18 05:44 Not Reportable 07/12/18 05:44 1+ 07/12/18 05:44 Not Reportable 07/12/18 05:44 Not Reportable 07/12/18 05:44 Not Reportable 07/12/18 05:44 Not Reportable 07/12/18 05:44 Not Reportable 07/12/18 05:44 Not Reportable 07/12/18 05:44 Not Reportable 07/12/18 05:44 Not Reportable 07/12/18 05:44 Not Reportable 07/12/18 05:44 Not Reportable 07/12/18 05:44 Not Reportable 07/12/18 05:44 Not Reportable 07/12/18 05:44 Not Reportable 07/12/18 05:44 Acanthocytes (Spur) Not Reportable 07/12/18 05:44 Rouleaux Not Reportable 07/12/18 05:44 Not Reportable 07/12/18 05:44 Not Reportable 07/12/18 05:44 Not Reportable 07/12/18 05:44 Not Reportable 07/12/18 05:44 Hem Pathologist Commnt No 07/12/18 05:44 Sodium 139 mmol/L (137-145) 07/13/18 09:23 Potassium 5.1 mmol/L (3.6-5.0) H 07/13/18 09:23 Chloride 91.0 mmol/L (98-107) L 07/13/18 09:23 Carbon Dioxide 26 mmol/L (22-30) 07/13/18 09:23 27 mmol/L 07/13/18 09:23 BUN 61 mg/dL (9-20) H 07/13/18 09:23 10.3 mg/dL (0.8-1.5) H 07/13/18 09:23 Estimated GFR 6 ml/min 07/13/18 09:23 6 % 07/13/18 09:23 Glucose 104 mg/dL (75-100) H 07/13/18 09:23 POC Glucose 88 (70-105) 07/15/18 06:56 4.7 % (4-6) 07/08/18 06:55 Calcium 9.8 mg/dL (8.4-10.2) 07/13/18 09:23 Phosphorus 6.20 mg/dL (2.5-4.5) H 07/13/18 09:23 Magnesium 2.70 mg/dL (1.7-2.3) H 07/13/18 09:23 0.20 mg/dL (0.1-1.2) 07/13/18 09:23 AST 25 units/L (5-40) 07/13/18 09:23 ALT 25 units/L (7-56) 07/13/18 09:23 57 units/L (35-129) 07/13/18 09:23 8.0 g/dL (6.3-8.2) 07/13/18 09:23 4.1 g/dL (3.9-5) 07/13/18 09:23 1.1 % 07/13/18 09:23 Triglycerides 52 mg/dL (2-149) 07/08/18 06:55 Cholesterol 141 mg/dL (50-199) 07/08/18 06:55 46 mg/dL (50-130) L 07/08/18 06:55 79 mg/dL (40-59) H 07/08/18 06:55 1.78 % 07/08/18 06:55 Vitamin B12 1706 pg/mL (211-911) H 07/08/18 09:18 Active Medications - Current Medications Current Medications: Generic Name Dose Route Start Last Admin Trade Name Freq PRN Reason Stop Dose Admin Acetaminophen 500 mg 07/07/18 16:14 07/13/18 17:22 Tylenol PO 500 mg Q6H PRN Administration Pain, Mild (1-3) Al Hydrox/Mg Hydrox/Simethicone 15 ml 07/09/18 14:01 07/11/18 10:02 Alum-Mag Hydrox-Simeth 283-733-96fp/5ml PO 15 ml Q4H PRN Administration Indigestion Aspirin 325 mg 07/15/18 08:00 07/15/18 11:17 Ecotrin PO 325 mg QDAY GORDO Administration Atorvastatin Calcium 40 mg 07/07/18 21:00 07/14/18 22:13 Lipitor PO 40 mg QHS GORDO Administration Bisacodyl 10 mg 07/07/18 16:14 Dulcolax PA QDAY PRN Constipation Calcium Carbonate/Glycine 1,000 mg 07/08/18 11:30 07/09/18 05:10 Tums PO 1,000 mg Q6H PRN Administration Indigestion Dextrose 50 ml 07/07/18 15:48 D50w (25gm) Syringe IV PRN PRN Hypoglycemia Docusate Sodium 100 mg 07/07/18 22:00 07/15/18 11:15 Colace PO 100 mg BID GORDO Administration Ergocalciferol 50,000 unit 07/13/18 10:00 07/13/18 12:34 Vitamin D2 PO 50,000 unit Mo GORDO Administration Famotidine 20 mg 07/09/18 15:00 07/15/18 11:22 Pepcid PO 20 mg QDAY GORDO Administration Furosemide 40 mg 07/08/18 08:00 07/15/18 11:17 Lasix PO 40 mg QDAY GORDO Administration Gabapentin 100 mg 07/12/18 22:00 07/15/18 11:16 Neurontin PO 100 mg BID GORDO Administration Heparin Sodium (Porcine) 5,000 unit 07/07/18 22:00 07/15/18 06:18 Heparin SUB-Q 5,000 unit Q8HR GORDO Administration Hydralazine HCl 50 mg 07/14/18 14:00 07/15/18 06:18 Apresoline PO 50 mg Q8HR GORDO Administration Hydroxyzine HCl 25 mg 07/10/18 17:06 07/13/18 17:21 Atarax PO 25 mg Q6H PRN Administration Itching Hydroxyzine HCl 50 mg 07/13/18 08:00 07/15/18 11:24 Atarax PO 50 mg TID GORDO Administration Sodium Chloride 100 mls @ 999 mls/hr 07/08/18 10:00 Nacl 0.9% IV JEANINE PRN Hypotension Insulin Human Lispro 0 unit 07/07/18 16:30 07/15/18 10:50 Humalog SUB-Q Not Given ACHS GORDO Protocol Metoprolol Tartrate 25 mg 07/07/18 22:00 07/15/18 11:18 Lopressor PO Not Given BID GORDO Multivit/Ca Carb/B Cmplx/FA/Prenat 1 cap 07/12/18 21:00 07/15/18 11:23 Renal Caps PO 1 cap DAILY GORDO Administration Ondansetron HCl 4 mg 07/07/18 16:17 Zofran Odt PO Q8H PRN Nausea And Vomiting Sevelamer Carbonate 2,400 mg 07/08/18 07:30 07/15/18 11:29 Renvela PO Not Given AC GORDO Simethicone 80 mg 07/11/18 08:45 Mylicon PO Q6H PRN Gas pain Nutrition/Malnutrition Assess - Dietary Evaluation Nutrition/Malnutrition Findings: Nutrition Notes Start: 07/08/18 14:15 Freq: Status: Active Protocol: Document 07/08/18 14:15 DANGELO (Rec: 07/08/18 14:18 DANGELO [id number] [email or web address]) Nutrition Notes Need for Assessment generated from: MD Order,Education Initial or Follow up Brief Note Current Diagnosis CKD (stage V CKD),Coronary Artery Disease,Diabetes, Hypertension,Heart Failure, Hyperlipidemia Other Pertinent Diagnosis CVA with (R) hemiparesis Current Diet Renal/Consistent CHO mech soft Labs/Tests K 5.1 BUN 48 Cr 10.2 A1C 4.7 Pertinent Medications Lasix, Renvela Subjective/Other Information RD consulted for diet education; pt also screened for chewing difficulty (sec to CVA). Pt reports good appetite and is aware of foods contraindicated on a renal diet. He denies need for diet education at this time. Burn Absent Trauma Absent Nutrition Intervention Follow-Up By: 07/15/18 Additional Comments F/U: stable intakes, wt
[2018-07-15] MEDS ORDERED: NACL 0.9 (PRIMING MACHINE ONLY DIALYSIS) MC ONE (15:07)
[2018-07-16] MEDS: HEPARIN SUB-Q SCH ×3 (05:47→21:09)
[2018-07-16] MEDS: APRESOLINE PO SCH ×3 (05:50→21:08)
[2018-07-16] MEDS: HumaLOG SUB-Q SCH ×5 (05:51→22:14)
[2018-07-16] MEDS: Renal Caps PO SCH (12:03)
[2018-07-16] MEDS: NEURONTIN PO SCH ×2 (12:04→21:08)
[2018-07-16] MEDS: LOPRESSOR PO SCH ×2 (12:04→21:10)
[2018-07-16] MEDS: COLACE PO SCH ×2 (12:04→21:08)
[2018-07-16] MEDS: ATARAX PO SCH ×3 (12:04→21:19)
[2018-07-16] MEDS: RENVELA PO SCH ×3 (12:05→16:52)
[2018-07-16] MEDS: ECOTRIN PO SCH (12:05)
[2018-07-16] MEDS: PEPCID PO SCH (12:05)
[2018-07-16] MEDS: LASIX PO SCH (12:08)
--- NOTE | 2018-07-16 12:52 | Progress Note ---
Subjective Date of service: 07/16/18 Principal diagnosis: CVA with right hemiparesis, ESRD A on HD on MWF, T2 DM, CAD. Interval history: 63-year-old [id number] male who developed weakness during dialysis was sent to the hospital. He was found to have a second CVA and tPA was administer ed with some improvement. Afterwards he is monitored closely in the ICU per protocol. Once stable he was transferred to the floor and seen by therapy. He currently has dysarthria and states he may have some issues with word finding. Most recently he was on a dysphagia diet and we will have swallowing assessed to ensure his he is safe. He has a history of seizures but is not taking any AEDs. He states his last seizure activity was years ago by his account during dialysis. He still has significant right-sided weakness as well as a right facial droop. After he was medically cleared he was transferred for further rehabilitation. All available outside hospital records were reviewed, most recent hospital stays here have also been reviewed. Discussed smoking cessation, alcohol sensation, and secondary stroke prevention and prognosis with the patient. We'll start therapy evaluations tomorrow morning and hope to see further return of function. Hospitalist group and nephrology have both been consulted and I appreciate their assistance. Patient is participating in therapy and making reasonable progress. Taking rest breaks as needed. +BM. Denies pain, chest pain, palpitations, dyspnea, cough, N/V or diarrhea. No complaints of abdominal cramping today. Right arm range of motion is improved, he does have crepitus in the joint however he is able to move it with active range of motion. Looking forward to discharge home. Right side strength is improving. All records, vitals, labs and medications were reviewed. No other issues per patient, nursing or therapy. Objective - Exam Narrative Exam: MUSCULOSKELETAL SPECIALTY EXAM CONSTITUTIONAL: Well developed, well nourished, appropriately groomed. RIGHT hand dominant. RESPIRATORY: Clear to auscultation bilaterally, no increased work of breathing CARDIOVASCULAR: Regular Rate/ Rhythm, no swelling, edema or tenderness in BUE or BLE. All extremities warm. Palpable thrill in left arm GI: + bowel sounds, soft, NTTP, slightly distended, protuberant. INTEGUMENTARY: Normal, no lesion, rash, masses or bruising noted in extremities. MUSCULOSKELETAL: BUE and BLE normal without defect, subluxation, effusion or TTP. Mild crepitus on RUE. SA EF WE EE FF FA HF KE ADF EHL APF R 4/5 4/5 4/5 4/5 4/5 4/5 4/5 4/5 4/5 4/5 4/5 L 4/5 4/5 4/5 4/5 4/5 4/5 4/5 4/5 4/5 4/5 4/5 ROM - normal Tone - normal NEURO: Right facial droop,Tongue protrudes midline to possibly left (likely from prev ious stroke), Otherwise CN II-XII grossly intact Sensation intact in all extremities without extinction. No tremor noted in 4 extremities. Naming and repetition intact. Follows 2 step commands. Aphasia not appreciated Dysarthria present slightly Dysphagia upgraded to regular diet Neglect not appreciated POSTURE and GAIT: Sitting posture good. Balance leans right. Gait with RW, functional but not smooth, decreased endurance, some LOB PSYCH: Alert, orientated x3, affect appears euthymic. Insight appears intact, decreased safety awareness/personality. - Constitutional Vitals: Vital Signs - 12hr 07/16/18 07/16/18 07/16/18 05:26 05:46 05:50 Temperature 36.5 C Pulse Rate 75 77 77 Respiratory 18 Rate Respiratory Rate [Back] Respiratory Rate [Chest] Respiratory Rate [Head] Blood Pressure 152/95 Blood Pressure 152/95 [Left] O2 Sat by Pulse 98 96 Oximetry 07/16/18 07/16/18 07:30 09:30 Temperature 36.6 C Pulse Rate 74 Respiratory 18 Rate Respiratory 17 Rate [Back] Respiratory 17 Rate [Chest] Respiratory 17 Rate [Head] Blood Pressure Blood Pressure 136/76 [Left] O2 Sat by Pulse Oximetry - Allied health notes Allied health notes reviewed: nursing, PT, OT FIMS assessment as documented by PT/OT/ST: Grooming Patient cleans teeth/dentures: Yes Patient ambrocio/brushes hair: Yes Patient washes, rinses and Yes dries face: Patient washes, rinses and Yes dries hands: Patient shaves: Yes Patient performs (no make-up/ 05/14 (100%) shaving): Patient performs (w/ make-up/ 06/14 (100%) shaving): Grooming FIM Score 6. Modified [place] (Needs equipment/device . Extra time.) Toileting Toileting Device Commode over Toilet Patient able to: Adjust clothes before,Clean self,Adjust clothes after Patient able to perform: 3/3 (100%) Toileting FIM Score 6. Modified [place] (Needs equip. or prosth ./orth.) Social interaction/Memory/Problem solving Social Interaction FIM Score 6. Mod. [place] (Mostly appropriate. May need meds. No supv.) Memory FIM Score 7. Complete [place] (Remembers people and routines.) Problem Solving FIM Score 6. Mod. [place] (Mild difficulty or needs more time w/ complex.) Transfers Mode of Locomotion: Wheelchair Bed/Chair/Wheelchair Transfers 6. Modified [place] (Uses device, sliding FIM Score board, prosth./orth.) Toilet Transfers FIM Score 5. Supervision (Needs supervision or cueing.) Patient transferred to: Shower Shower Transfers FIM Score 5. Supervision (Needs supv. or set-up with device.) Locomotion- Stairs Device used on Stairs Handrail/s Number of Stairs Ascended/ 16 Descended Patient used handrail/support: Yes Stairs FIM Score 5. Supervision (12-14 stairs w/ supv. 4-6 stairs independently.) Locomotion- walk/wheelchair Most Frequent Mode of Walking Locomotion: Ambulation Distance 350 Walking FIM Score 4. Minimal Assistance (Patient = 75% or more. Minimum of 150 ft.) Wheelchair Propulsion Distance 350 Wheelchair FIM Score 6. Modified [place] (Wheels a minimum of 150 ft.) Eating Eating FIM Score 7. Complete [place] (Cuts meat, opens containers, regular diet.) Dressing-Upper body Patient retrieves clothing Yes items: Patient applies/removes UE n/a prosthesis or orthosis: Upper Body Dressing FIM Score 6. Modified [place] (Needs equipment, velcro or pros./orth.) Dressing-lower body Patient retrieves clothing Yes items: Patient applies/removes LE n/a prosthesis or orthosis: Lower Body Dressing FIM Score 6. Modified [place] (Needs equipment, velcro or pros./orth.) - Labs CBC & Chem 7: 07/13/18 09:23 07/13/18 09:23 Labs: Laboratory Results - last 72 hr 07/13/18 07/13/18 07/14/18 16:56 22:37 07:41 POC Glucose 111 H 133 H 120 H 06/04/19 06/04/19 06/04/19 13:19 16:00 21:40 POC Glucose 148 H 114 H 153 H 07/15/18 07/15/18 07/16/18 06:56 21:53 07:34 POC Glucose 88 96 173 H 07/16/18 12:24 POC Glucose 92 Assessment and Plan I69.351 CVA with right dominant hemiparesis: Continue secondary stroke preven tion, therapy as noted below. Monitor for changes and neuro status. Monitor for post stroke depression as well as shoulder-hand syndrome. I69.322 dysarthria: Speech and language pathology will assess in assist patient with return of function including strategies to help project voice and improved speech intelligibility. I69.391 dysphagia: Advanced to regular diet by [employer],monitor progress Z73.6 ADL dysfunction: OT will work on improving ability to perform ADLs (including assistive devices) to increase independence and decrease caregiver burden and improve functional transfers and mobility training. R26.2 Difficulty walking: PT will work on gait training and proper use of assistive devices and advance as appropriate to use of stairs and outside ambulation on uneven surfaces. R26.81 Unsteadiness on feet: PT will work on improving static and dynamic sitting and standing balance as well as proper use of assistive devices to decrease risk of falls. R26.89 Abnormality of gait: PT will work to improve safety and efficiency of gait through neuromotor training and gait training along with instruction on proper use of assistive devices. M62.81 Muscle weakness: PT & OT will work on strengthening exercises to improve functional strength including mixture of closed and open kinetic chain exe rcises. R53.81 Debility: PT & OT will work on improving overall functional status to improve participation with ADLs, mobility and social involvement. R53.83 Fatigue: PT & OT will work on improving endurance through aerobic exercises and therapeutic activity while monitoring patients tolerance for activity and vital signs as needed. Right shoulder pain - XR showed mild OA changes KUB -nonobstructive bowel gas pattern Consults: Internal medicine consulted for management of diabetes, hypertension, CHF. Appreciate their assistance Nephrology consulted for management of end-stage renal disease and electrolytes. Appreciate their assistance DVT ppx: Heparin Pain: Continue physical modalities in therapy and pain medications as needed to achieve functional pain control. Sleep: Monitor and address as needed. Bowel: Monitor and address as needed. Appetite: Monitor and address as needed. Discharge planning: Pending therapy progress and care plan meeting. Will continue discussion with therapy team, SW, patient and family. Restrictions/ Precautions: Falls, seizures WB status: FWB Functional Hx: ADLs: Independent Cognition: Independent Mobility: Cane, single-point Barriers to Discharge: Decreased mobility and ability to perform self care, balance deficits, weakness, dysphagia, dysarthria, poor safety awareness Estimated Length of Stay: 1421 days - based on recovery seen so far, will look to discharge home on Friday after family training Discharge Destination: Home with family
[2018-07-16 14:03] LABS: Calcium 10.1 mg/dL (8.4-10.2)
--- NOTE | 2018-07-16 14:45 | Progress Note ---
Assessment and Plan Assessment and plan: This is 63 yo M with past medical history of hypertension, CAD, ESRD on HD on MWF schedule, who was recently hospitalized at [facility] for acute CVA from 07/03 - 07/06, after presenting with slurred speech, Rt upper/lower extremity weakness, required tPA treatment on 07/03, after which symptoms improved to some degree. pt was then transferred to [facility] for acute rehab on 07/07, medicine service consult is requested for medical management. Acute CVA, - s/p tPA treatmet, cont PT/OT - cont aspirin and statin, monitor BP. hyperkalemia, monitor BMP, should correct with HD, kayexalate as needed Peripheral neuropathy. neurontin if needed ESRD. Continue Friday, nephrology following Anemia chronic disease, h/h stable Diabetes mellitus type 2 - insulin regimen adjust as needed CAD. Patient with coronary artery disease status post multivessel PCI. cont medical mx - will follow with you Hypertension - Uncontrolled, continue current medications and I added hydralazine 50 mg by mouth 3 times a day 07/15. Blood pressure was controlled overnight but slightly elevated this morning. We'll continue to monitor. History Interval history: Patient was seen and evaluated this morning, patient didn't have any complaints. No nursing issues reported to me overnight. Hospitalist Physical - Physical exam Narrative exam: Not in cardiopulmonary distress. The patient appeared well nourished and normally developed. Vital signs as documented. Head exam is unremarkable. No scleral icterus . Neck is without jugular venous distension, thyromegaly, or carotid bruits. Lungs are clear to auscultation. Cardiac exam reveals regular rate and Rhythm. First and second heart sounds normal. No murmurs, rubs or gallops. Abdominal exam reveals normal bowel sounds, no masses, no organomegaly and no aortic enlargement. Extremities are nonedematous and both femoral and pedal pulses are normal. PLUG SHAPER HAND: Alert and oriented 3. Mild right-sided weakness. - Constitutional Vitals: Temp Pulse Resp BP Pulse Ox 97.8 F 74 17 136/76 96 07/16/18 07:30 07/16/18 07:30 07/16/18 09:30 07/16/18 07:30 07/16/18 05:46 General appearance: Present: no acute distress, well-nourished Results - Labs CBC & Chem 7: 07/13/18 09:23 07/16/18 13:03 Labs: Laboratory Last Values WBC 4.9 K/mm3 (4.5-11.0) 07/13/18 09:23 RBC 3.78 M/mm3 (3.65-5.03) 07/13/18 09:23 Hgb 12.7 gm/dl (11.8-15.2) 07/13/18 09:23 Hct 38.9 % (35.5-45.6) D 07/13/18 09:23 MCV 103 fl (84-94) H 07/13/18 09:23 MCH 34 pg (28-32) H 07/13/18 09:23 MCHC 33 % (32-34) 07/13/18 09:23 RDW 15.1 % (13.2-15.2) 07/13/18 09:23 Plt Count 195 K/mm3 (140-440) 07/13/18 09:23 Lymph % (Auto) 28.9 % (13.4-35.0) 07/13/18 09:23 [place] % (Auto) 12.1 % (0.0-7.3) H 07/13/18 09:23 Eos % (Auto) 5.7 % (0.0-4.3) H 07/13/18 09:23 Baso % (Auto) [employer] Teacher 07/13/18 09:23 Lymph # 1.4 K/mm3 (1.2-5.4) 07/13/18 09:23 [place] # 0.6 K/mm3 (0.0-0.8) 07/13/18 09:23 Eos # 0.3 K/mm3 (0.0-0.4) 07/13/18 09:23 Baso # 0.1 K/mm3 (0.0-0.1) 07/13/18 09:23 Add Manual Diff Complete 07/12/18 05:44 Total Counted 100 07/12/18 05:44 Seg Neutrophils % 51.2 % (40.0-70.0) 07/13/18 09:23 Seg Neuts % (Manual) 54.0 % (40.0-70.0) 07/12/18 05:44 0 % 07/12/18 05:44 27.0 % (13.4-35.0) 07/12/18 05:44 Reactive Lymphs % (Man) 0 % 07/12/18 05:44 14.0 % (0.0-7.3) H 07/12/18 05:44 5.0 % (0.0-4.3) H 07/12/18 05:44 0 % (0.0-1.8) 07/12/18 05:44 0 % 07/12/18 05:44 0 % 07/12/18 05:44 0 % 07/12/18 05:44 0 % 07/12/18 05:44 Nucleated RBC % Not Reportable 07/12/18 05:44 Seg Neutrophils # 5.9 K/mm3 (1.8-7.7) 07/08/18 06:55 Seg Neutrophils # Man 3.0 K/mm3 (1.8-7.7) 07/12/18 05:44 Band Neutrophils # 0.0 K/mm3 07/12/18 05:44 1.5 K/mm3 (1.2-5.4) 07/12/18 05:44 Abs React Lymphs (Man) 0.0 K/mm3 07/12/18 05:44 0.8 K/mm3 (0.0-0.8) 07/12/18 05:44 0.3 K/mm3 (0.0-0.4) 07/12/18 05:44 0.0 K/mm3 (0.0-0.1) 07/12/18 05:44 0.0 K/mm3 07/12/18 05:44 0.0 K/mm3 07/12/18 05:44 0.0 K/mm3 07/12/18 05:44 Blast Cells # 0.0 K/mm3 07/12/18 05:44 WBC Morphology Not Reportable 07/12/18 05:44 Hypersegmented Neuts Not Reportable 07/12/18 05:44 Hyposegmented Neuts Not Reportable 07/12/18 05:44 Hypogranular Neuts Not Reportable 07/12/18 05:44 Not Reportable 07/12/18 05:44 Not Reportable 07/12/18 05:44 Not Reportable 07/12/18 05:44 Not Reportable 07/12/18 05:44 Not Reportable 07/12/18 05:44 Not Reportable 07/12/18 05:44 Consistent w auto 07/12/18 05:44 Not Reportable 07/12/18 05:44 Plt Clumps, EDTA Not Reportable 07/12/18 05:44 Not Reportable 07/12/18 05:44 Not Reportable 07/12/18 05:44 Not Reportable 07/12/18 05:44 Plt Morphology Comment Not Reportable 07/12/18 05:44 RBC Morphology Not Reportable 07/12/18 05:44 Dimorphic RBCs Not Reportable 07/12/18 05:44 Not Reportable 07/12/18 05:44 Not Reportable 07/12/18 05:44 Not Reportable 07/12/18 05:44 1+ 07/12/18 05:44 Not Reportable 07/12/18 05:44 1+ 07/12/18 05:44 Not Reportable 07/12/18 05:44 Not Reportable 07/12/18 05:44 Not Reportable 07/12/18 05:44 Not Reportable 07/12/18 05:44 Not Reportable 07/12/18 05:44 Not Reportable 07/12/18 05:44 Not Reportable 07/12/18 05:44 Not Reportable 07/12/18 05:44 Not Reportable 07/12/18 05:44 Not Reportable 07/12/18 05:44 Not Reportable 07/12/18 05:44 Not Reportable 07/12/18 05:44 Not Reportable 07/12/18 05:44 Acanthocytes (Spur) Not Reportable 07/12/18 05:44 Rouleaux Not Reportable 07/12/18 05:44 Not Reportable 07/12/18 05:44 Not Reportable 07/12/18 05:44 Not Reportable 07/12/18 05:44 Not Reportable 07/12/18 05:44 Hem Pathologist Commnt No 07/12/18 05:44 Sodium 138 mmol/L (137-145) 07/16/18 13:03 Potassium 5.1 mmol/L (3.6-5.0) H 07/16/18 13:03 Chloride 96.4 mmol/L (98-107) L 07/16/18 13:03 Carbon Dioxide 25 mmol/L (22-30) 07/16/18 13:03 22 mmol/L 07/16/18 13:03 BUN 42 mg/dL (9-20) H 07/16/18 13:03 7.2 mg/dL (0.8-1.5) H 07/16/18 13:03 Estimated GFR 9 ml/min 07/16/18 13:03 6 % 07/16/18 13:03 Glucose 82 mg/dL (75-100) 07/16/18 13:03 POC Glucose 92 (70-105) 07/16/18 12:24 4.7 % (4-6) 07/08/18 06:55 Calcium 10.1 mg/dL (8.4-10.2) 07/16/18 13:03 Phosphorus 6.20 mg/dL (2.5-4.5) H 07/13/18 09:23 Magnesium 2.70 mg/dL (1.7-2.3) H 07/13/18 09:23 0.20 mg/dL (0.1-1.2) 07/13/18 09:23 AST 25 units/L (5-40) 07/13/18 09:23 ALT 25 units/L (7-56) 07/13/18 09:23 57 units/L (35-129) 07/13/18 09:23 8.0 g/dL (6.3-8.2) 07/13/18 09:23 4.1 g/dL (3.9-5) 07/13/18 09:23 1.1 % 07/13/18 09:23 Triglycerides 52 mg/dL (2-149) 07/08/18 06:55 Cholesterol 141 mg/dL (50-199) 07/08/18 06:55 46 mg/dL (50-130) L 07/08/18 06:55 79 mg/dL (40-59) H 07/08/18 06:55 1.78 % 07/08/18 06:55 Vitamin B12 1706 pg/mL (211-911) H 07/08/18 09:18 Active Medications - Current Medications Current Medications: Generic Name Dose Route Start Last Admin Trade Name Freq PRN Reason Stop Dose Admin Acetaminophen 500 mg 07/07/18 16:14 07/13/18 17:22 Tylenol PO 500 mg Q6H PRN Administration Pain, Mild (1-3) Al Hydrox/Mg Hydrox/Simethicone 15 ml 07/09/18 14:01 07/11/18 10:02 Alum-Mag Hydrox-Simeth 812-830-18ia/5ml PO 15 ml Q4H PRN Administration Indigestion Aspirin 325 mg 07/15/18 08:00 07/16/18 12:05 Ecotrin PO 325 mg QDAY GORDO Administration Atorvastatin Calcium 40 mg 07/07/18 21:00 07/15/18 22:45 Lipitor PO 40 mg QHS GORDO Administration Bisacodyl 10 mg 07/07/18 16:14 Dulcolax RI QDAY PRN Constipation Calcium Carbonate/Glycine 1,000 mg 07/08/18 11:30 07/09/18 05:10 Tums PO 1,000 mg Q6H PRN Administration Indigestion Dextrose 50 ml 07/07/18 15:48 D50w (25gm) Syringe IV PRN PRN Hypoglycemia Docusate Sodium 100 mg 07/07/18 22:00 07/16/18 12:04 Colace PO 100 mg BID GORDO Administration Ergocalciferol 50,000 unit 07/13/18 10:00 07/13/18 12:34 Vitamin D2 PO 50,000 unit Mo GORDO Administration Famotidine 20 mg 07/09/18 15:00 07/16/18 12:05 Pepcid PO 20 mg QDAY GORDO Administration Furosemide 40 mg 07/08/18 08:00 07/16/18 12:08 Lasix PO 40 mg QDAY GORDO Administration Gabapentin 100 mg 07/12/18 22:00 07/16/18 12:04 Neurontin PO 100 mg BID GORDO Administration Heparin Sodium (Porcine) 5,000 unit 07/07/18 22:00 07/16/18 05:47 Heparin SUB-Q 5,000 unit Q8HR GORDO Administration Hydralazine HCl 50 mg 07/14/18 14:00 07/16/18 05:50 Apresoline PO 50 mg Q8HR GORDO Administration Hydroxyzine HCl 25 mg 07/10/18 17:06 07/13/18 17:21 Atarax PO 25 mg Q6H PRN Administration Itching Hydroxyzine HCl 50 mg 07/13/18 08:00 07/16/18 12:04 Atarax PO 50 mg TID GORDO Administration Sodium Chloride 100 mls @ 999 mls/hr 07/08/18 10:00 Nacl 0.9% IV JEANINE PRN Hypotension Insulin Human Lispro 0 unit 07/07/18 16:30 07/16/18 13:21 Humalog SUB-Q Not Given ACHS GORDO Protocol Metoprolol Tartrate 25 mg 07/07/18 22:00 07/16/18 12:04 Lopressor PO 25 mg BID GORDO Administration Multivit/Ca Carb/B Cmplx/FA/Prenat 1 cap 07/12/18 21:00 07/16/18 12:03 Renal Caps PO 1 cap DAILY GORDO Administration Ondansetron HCl 4 mg 07/07/18 16:17 Zofran Odt PO Q8H PRN Nausea And Vomiting Sevelamer Carbonate 2,400 mg 07/08/18 07:30 07/16/18 12:08 Renvela PO Not Given AC GORDO Simethicone 80 mg 07/11/18 08:45 Mylicon PO Q6H PRN Gas pain Nutrition/Malnutrition Assess - Dietary Evaluation Nutrition/Malnutrition Findings: Nutrition Notes Start: 07/08/18 14:15 Freq: Status: Active Protocol: Document 07/15/18 16:14 RM (Rec: 07/15/18 16:17 RM [id number]) Nutrition Notes Initial or Follow up Brief Note Current Diagnosis CKD (stage V CKD),Coronary Artery Disease,Diabetes, Hypertension,Heart Failure, Hyperlipidemia Other Pertinent Diagnosis CVA with (R) hemiparesis Current Diet Renal/Consistent CHO Labs/Tests No recent labs Pertinent Medications Lasix Height 5 ft 7 in Weight 81.193 kg [place] Body Weight (kg) 67.27 BMI 28.0 Subjective/Other Information Pt stated that his appetite is good and that he ate all of his breakfast and lunch. Burn Absent Trauma Absent Nutrition Intervention Revisit per MD consult or patient Sign Off request:
[2018-07-16] MEDS: ATARAX PO PRN (16:53)
--- NOTE | 2018-07-16 17:02 | Progress Note ---
Assessment and Plan - Patient Problems (1) Hyperkalemia Current Visit: No Status: Acute Plan to address problem: cont 2g k renal diet, cont HD on MWF schedule. recommend to hold HUNTER-I/ARB given persistent hyperkalemia. (2) Hypertensive chronic kidney disease with stage 5 chronic kidney disease or end stage renal disease Current Visit: Yes Status: Acute Plan to address problem: monitor BP on current meds incl. hydralazine, metoprolol, lasix. will adjust UF for further volume/BP control. (3) End stage renal disease on dialysis Current Visit: No Status: Chronic Plan to address problem: cont HD on MWF schedule (4) Acute cerebrovascular accident Current Visit: Yes Status: Acute Plan to address problem: s/p tPA treatment, on ASA, cont PT/OT Subjective Date of service: 07/16/18 Principal diagnosis: CVA with right hemiparesis, ESRD A on HD on MWF, T2 DM, CAD. Interval history: Pt awake, alert, in no acute distress. Objective - Vital Signs Vital signs: Vital Signs - 12hr 07/16/18 07/16/18 07/16/18 05:26 05:46 05:50 Temperature 97.7 F Pulse Rate 75 77 77 Respiratory 18 Rate Respiratory Rate [Back] Respiratory Rate [Chest] Respiratory Rate [Head] Blood Pressure 152/95 Blood Pressure 152/95 [Left] O2 Sat by Pulse 98 96 Oximetry 07/16/18 07/16/18 07:30 09:30 Temperature 97.8 F Pulse Rate 74 Respiratory 18 Rate Respiratory 17 Rate [Back] Respiratory 17 Rate [Chest] Respiratory 17 Rate [Head] Blood Pressure Blood Pressure 136/76 [Left] O2 Sat by Pulse Oximetry - General Appearance General appearance: well-developed, well-nourished, appears stated age EENT: ATNC, PERRL, mucous membranes moist Neck: no JVD Respiratory: Present: Clear to Ascultation Cardiology: regular, S1S2 Gastrointestinal: normoactive bowel sounds Integumentary: no rash, other (no edema ) Neurologic: no focal deficit, alert and oriented x3, strength 5/5, CN 3-12 intact Psychiatric: mood/affect appropriate, cooperative - Lab 07/13/18 09:23 07/16/18 13:03 Most recent lab results Calcium 10.1 mg/dL (8.4-10.2) 07/16/18 13:03 Phosphorus 6.20 mg/dL (2.5-4.5) H 07/13/18 09:23 Magnesium 2.70 mg/dL (1.7-2.3) H 07/13/18 09:23 Medications & Allergies - Medications Allergies/Adverse Reactions: Allergies No Known Allergies Allergy (Verified 02/28/17 00:21) Home Medications: Home Medications Medication Instructions Recorded Confirmed Last Taken Type Rosuvastatin Calcium [Crestor] 20 mg PO QHS 07/03/17 07/09/18 1 Day Ago History ~03/10/18 Sevelamer Carbonate [Renvela] 2,400 mg PO TIDWM 07/03/17 07/09/18 1 Day Ago History ~03/10/18 Aspirin [Aspirin BABY CHEW TAB] 81 mg PO QDAY #30 tab.chew 07/05/17 07/09/18 1 Day Ago Rx ~03/10/18 B Complex 11/Folic/C/Biot/Zinc 1 each PO DAILY 02/13/18 07/09/18 1 Day Ago History [Dialyvite with Zinc Tablet] ~03/10/18 Ergocalciferol (Vitamin D2) 50,000 unit PO QWEEK 02/13/18 07/09/18 1 Day Ago History [Drisdol] ~03/10/18 Omeprazole 20 mg PO QDAY 02/13/18 07/09/18 1 Day Ago History ~03/10/18 ISOSORBIDE MONOnitrate [Imdur ER] 30 mg PO DAILY #30 tablet 02/14/18 07/09/18 1 Day Ago Rx ~03/10/18 Metoprolol [Lopressor TAB] 12.5 mg PO BID #30 tablet 02/14/18 07/09/18 1 Day Ago Rx ~03/10/18 Gabapentin [Neurontin] 100 mg PO BID #60 capsule 05/03/18 07/09/18 Unknown Rx Verapamil [Calan] 80 mg PO Q8HR #90 tablet 05/03/18 07/09/18 Unknown Rx Hydroxyzine HCl [hydrOXYzine] 50 mg PO TID 05/14/18 07/09/18 Unknown History traMADol [Ultram 50 MG tab] 50 mg PO Q6HR PRN 04/04/19 05/30/19 Unknown History Active Medications: Generic Name Dose Route Start Last Admin Trade Name Freq PRN Reason Stop Dose Admin Acetaminophen 500 mg 07/07/18 16:14 07/13/18 17:22 Tylenol PO 500 mg Q6H PRN Administration Pain, Mild (1-3) Al Hydrox/Mg Hydrox/Simethicone 15 ml 07/09/18 14:01 07/11/18 10:02 Alum-Mag Hydrox-Simeth 194-783-62ot/5ml PO 15 ml Q4H PRN Administration Indigestion Aspirin 325 mg 07/15/18 08:00 07/16/18 12:05 Ecotrin PO 325 mg QDAY GORDO Administration Atorvastatin Calcium 40 mg 07/07/18 21:00 07/15/18 22:45 Lipitor PO 40 mg QHS GORDO Administration Bisacodyl 10 mg 07/07/18 16:14 Dulcolax MD QDAY PRN Constipation Calcium Carbonate/Glycine 1,000 mg 07/08/18 11:30 07/09/18 05:10 Tums PO 1,000 mg Q6H PRN Administration Indigestion Dextrose 50 ml 07/07/18 15:48 D50w (25gm) Syringe IV PRN PRN Hypoglycemia Docusate Sodium 100 mg 07/07/18 22:00 07/16/18 12:04 Colace PO 100 mg BID GORDO Administration Ergocalciferol 50,000 unit 07/13/18 10:00 07/13/18 12:34 Vitamin D2 PO 50,000 unit Mo GORDO Administration Famotidine 20 mg 07/09/18 15:00 07/16/18 12:05 Pepcid PO 20 mg QDAY GORDO Administration Furosemide 40 mg 07/08/18 08:00 07/16/18 12:08 Lasix PO 40 mg QDAY GORDO Administration Gabapentin 100 mg 07/12/18 22:00 07/16/18 12:04 Neurontin PO 100 mg BID GORDO Administration Heparin Sodium (Porcine) 5,000 unit 07/07/18 22:00 07/16/18 16:53 Heparin SUB-Q 5,000 unit Q8HR GORDO Administration Hydralazine HCl 50 mg 07/14/18 14:00 07/16/18 16:53 Apresoline PO 50 mg Q8HR GORDO Administration Hydroxyzine HCl 25 mg 07/10/18 17:06 07/16/18 16:53 Atarax PO 25 mg Q6H PRN Administration Itching Hydroxyzine HCl 50 mg 07/13/18 08:00 07/16/18 16:54 Atarax PO 50 mg TID GORDO Administration Sodium Chloride 100 mls @ 999 mls/hr 07/08/18 10:00 Nacl 0.9% IV JEANINE PRN Hypotension Insulin Human Lispro 0 unit 07/07/18 16:30 07/16/18 16:58 Humalog SUB-Q Not Given ACHS [facility] Protocol Metoprolol Tartrate 25 mg 07/07/18 22:00 07/16/18 12:04 Lopressor PO 25 mg BID GORDO Administration Multivit/Ca Carb/B Cmplx/FA/Prenat 1 cap 07/12/18 21:00 07/16/18 12:03 Renal Caps PO 1 cap DAILY GORDO Administration Ondansetron HCl 4 mg 07/07/18 16:17 Zofran Odt PO Q8H PRN Nausea And Vomiting Sevelamer Carbonate 2,400 mg 07/08/18 07:30 07/16/18 16:52 Renvela PO 2,400 mg AC GORDO Administration Simethicone 80 mg 07/11/18 08:45 Mylicon PO Q6H PRN Gas pain
[2018-07-17] MEDS: HEPARIN SUB-Q SCH ×3 (06:01→21:47)
[2018-07-17] MEDS: APRESOLINE PO SCH ×3 (06:01→21:59)
[2018-07-17 06:07] LABS: Hematocrit 40.7 % (35.5-45.6); Hemoglobin 13.7 gm/dl (11.8-15.2); Mean Corpuscular HGB Conc 34 % (32-34); Mean Corpuscular Volume 101 fl (84-94); Platelet Count 208 K/mm3 (140-440); Red Blood Count 4.05 M/mm3 (3.65-5.03); Red Cell Distribution Width 15.2 % (13.2-15.2)
[2018-07-17] MEDS ORDERED: KIONEX PO ONE (07:44)
[2018-07-17] MEDS: LOPRESSOR PO SCH ×2 (08:03→21:59)
[2018-07-17] MEDS: RENVELA PO SCH ×3 (08:03→17:38)
[2018-07-17] MEDS: NEURONTIN PO SCH ×2 (08:03→21:46)
[2018-07-17] MEDS: COLACE PO SCH ×2 (08:03→21:46)
[2018-07-17] MEDS: ECOTRIN PO SCH (08:03)
[2018-07-17] MEDS: Renal Caps PO SCH ×2 (08:03→12:19)
[2018-07-17] MEDS: LASIX PO SCH (08:03)
[2018-07-17] MEDS: PEPCID PO SCH (08:03)
[2018-07-17] MEDS: ATARAX PO SCH ×3 (08:04→21:47)
[2018-07-17] MEDS: HumaLOG SUB-Q SCH ×4 (08:09→21:59)
--- NOTE | 2018-07-17 11:26 | Progress Note ---
Assessment and Plan Assessment and plan: This is 63 yo M with past medical history of hypertension, CAD, ESRD on HD on MWF schedule, who was recently hospitalized at [facility] for acute CVA from 07/03 - 07/06, after presenting with slurred speech, Rt upper/lower extremity weakness, required tPA treatment on 07/03, after which symptoms improved to some degree. pt was then transferred to [facility] for acute rehab on 07/07, medicine service consult is requested for medical management. Acute CVA, - s/p tPA treatmet, cont PT/OT - cont aspirin and statin, monitor BP. hyperkalemia, monitor BMP, should correct with HD, kayexalate as needed Peripheral neuropathy. neurontin if needed ESRD. Continue Friday, nephrology following Anemia chronic disease, h/h stable Diabetes mellitus type 2 - insulin regimen adjust as needed CAD. Patient with coronary artery disease status post multivessel PCI. cont medical mx - will follow with you Hypertension - Uncontrolled, continue current medications and I added hydralazine 50 mg by mouth 3 times a day 07/15. Blood pressure was controlled overnight but slightly elevated this morning. We'll continue to monitor. History Interval history: Patient was seen and evaluated this morning, patient didn't have any complaints. No nursing issues reported to me overnight. Hospitalist Physical - Physical exam Narrative exam: Not in cardiopulmonary distress. The patient appeared well nourished and normally developed. Vital signs as documented. Head exam is unremarkable. No scleral icterus . Neck is without jugular venous distension, thyromegaly, or carotid bruits. Lungs are clear to auscultation. Cardiac exam reveals regular rate and Rhythm. First and second heart sounds normal. No murmurs, rubs or gallops. Abdominal exam reveals normal bowel sounds, no masses, no organomegaly and no aortic enlargement. Extremities are nonedematous and both femoral and pedal pulses are normal. TABLE ASSEMBLER METAL: Alert and oriented 3. Mild right-sided weakness. - Constitutional Vitals: Temp Pulse Resp BP Pulse Ox 97.5 F L 80 18 144/76 96 07/17/18 07:41 07/17/18 07:41 07/17/18 07:41 07/17/18 07:41 07/17/18 07:41 General appearance: Present: no acute distress, well-nourished Results - Labs CBC & Chem 7: 06/07/19 05:46 07/17/18 05:46 Labs: Laboratory Last Values WBC 4.6 K/mm3 (4.5-11.0) 07/17/18 05:46 RBC 4.05 M/mm3 (3.65-5.03) 07/17/18 05:46 Hgb 13.7 gm/dl (11.8-15.2) 07/17/18 05:46 Hct 40.7 % (35.5-45.6) 07/17/18 05:46 MCV 101 fl (84-94) H 07/17/18 05:46 MCH 34 pg (28-32) H 07/17/18 05:46 MCHC 34 % (32-34) 07/17/18 05:46 RDW 15.2 % (13.2-15.2) 07/17/18 05:46 Plt Count 208 K/mm3 (140-440) 07/17/18 05:46 Lymph % (Auto) 28.9 % (13.4-35.0) 07/13/18 09:23 [place] % (Auto) 12.1 % (0.0-7.3) H 07/13/18 09:23 Eos % (Auto) 5.7 % (0.0-4.3) H 07/13/18 09:23 Baso % (Auto) [employer] 07/13/18 09:23 Lymph # 1.4 K/mm3 (1.2-5.4) 07/13/18 09:23 [place] # 0.6 K/mm3 (0.0-0.8) 07/13/18 09:23 Eos # 0.3 K/mm3 (0.0-0.4) 07/13/18 09:23 Baso # 0.1 K/mm3 (0.0-0.1) 07/13/18 09:23 Add Manual Diff Complete 07/12/18 05:44 Total Counted 100 07/12/18 05:44 Seg Neutrophils % 51.2 % (40.0-70.0) 07/13/18 09:23 Seg Neuts % (Manual) 54.0 % (40.0-70.0) 07/12/18 05:44 0 % 07/12/18 05:44 27.0 % (13.4-35.0) 07/12/18 05:44 Reactive Lymphs % (Man) 0 % 07/12/18 05:44 14.0 % (0.0-7.3) H 07/12/18 05:44 5.0 % (0.0-4.3) H 07/12/18 05:44 0 % (0.0-1.8) 07/12/18 05:44 0 % 07/12/18 05:44 0 % 07/12/18 05:44 0 % 07/12/18 05:44 0 % 07/12/18 05:44 Nucleated RBC % Not Reportable 07/12/18 05:44 Seg Neutrophils # 5.9 K/mm3 (1.8-7.7) 07/08/18 06:55 Seg Neutrophils # Man 3.0 K/mm3 (1.8-7.7) 07/12/18 05:44 Band Neutrophils # 0.0 K/mm3 07/12/18 05:44 1.5 K/mm3 (1.2-5.4) 07/12/18 05:44 Abs React Lymphs (Man) 0.0 K/mm3 07/12/18 05:44 0.8 K/mm3 (0.0-0.8) 07/12/18 05:44 0.3 K/mm3 (0.0-0.4) 07/12/18 05:44 0.0 K/mm3 (0.0-0.1) 07/12/18 05:44 0.0 K/mm3 07/12/18 05:44 0.0 K/mm3 07/12/18 05:44 0.0 K/mm3 07/12/18 05:44 Blast Cells # 0.0 K/mm3 07/12/18 05:44 WBC Morphology Not Reportable 07/12/18 05:44 Hypersegmented Neuts Not Reportable 07/12/18 05:44 Hyposegmented Neuts Not Reportable 07/12/18 05:44 Hypogranular Neuts Not Reportable 07/12/18 05:44 Not Reportable 07/12/18 05:44 Not Reportable 07/12/18 05:44 Not Reportable 07/12/18 05:44 Not Reportable 07/12/18 05:44 Not Reportable 07/12/18 05:44 Not Reportable 07/12/18 05:44 Consistent w auto 07/12/18 05:44 Not Reportable 07/12/18 05:44 Plt Clumps, EDTA Not Reportable 07/12/18 05:44 Not Reportable 07/12/18 05:44 Not Reportable 07/12/18 05:44 Not Reportable 07/12/18 05:44 Plt Morphology Comment Not Reportable 07/12/18 05:44 RBC Morphology Not Reportable 07/12/18 05:44 Dimorphic RBCs Not Reportable 07/12/18 05:44 Not Reportable 07/12/18 05:44 Not Reportable 07/12/18 05:44 Not Reportable 07/12/18 05:44 1+ 07/12/18 05:44 Not Reportable 07/12/18 05:44 1+ 07/12/18 05:44 Not Reportable 07/12/18 05:44 Not Reportable 07/12/18 05:44 Not Reportable 07/12/18 05:44 Not Reportable 07/12/18 05:44 Not Reportable 07/12/18 05:44 Not Reportable 07/12/18 05:44 Not Reportable 07/12/18 05:44 Not Reportable 07/12/18 05:44 Not Reportable 07/12/18 05:44 Not Reportable 07/12/18 05:44 Not Reportable 07/12/18 05:44 Not Reportable 07/12/18 05:44 Not Reportable 07/12/18 05:44 Acanthocytes (Spur) Not Reportable 07/12/18 05:44 Rouleaux Not Reportable 07/12/18 05:44 Not Reportable 07/12/18 05:44 Not Reportable 07/12/18 05:44 Not Reportable 07/12/18 05:44 Not Reportable 07/12/18 05:44 Hem Pathologist Commnt No 07/12/18 05:44 Sodium 138 mmol/L (137-145) 07/17/18 05:46 Potassium 6.2 mmol/L (3.6-5.0) H* D 07/17/18 05:46 Chloride 97.2 mmol/L (98-107) L 07/17/18 05:46 Carbon Dioxide 23 mmol/L (22-30) 07/17/18 05:46 24 mmol/L 07/17/18 05:46 BUN 55 mg/dL (9-20) H 07/17/18 05:46 8.9 mg/dL (0.8-1.5) H 07/17/18 05:46 Estimated GFR 7 ml/min 07/17/18 05:46 6 % 07/17/18 05:46 Glucose 90 mg/dL (75-100) 07/17/18 05:46 POC Glucose 96 (70-105) 07/17/18 07:47 4.7 % (4-6) 07/08/18 06:55 Calcium 10.0 mg/dL (8.4-10.2) 07/17/18 05:46 Phosphorus 6.20 mg/dL (2.5-4.5) H 07/13/18 09:23 Magnesium 2.70 mg/dL (1.7-2.3) H 07/13/18 09:23 0.20 mg/dL (0.1-1.2) 07/13/18 09:23 AST 25 units/L (5-40) 07/13/18 09:23 ALT 25 units/L (7-56) 07/13/18 09:23 57 units/L (35-129) 07/13/18 09:23 8.0 g/dL (6.3-8.2) 07/13/18 09:23 4.1 g/dL (3.9-5) 07/13/18 09:23 1.1 % 07/13/18 09:23 Triglycerides 52 mg/dL (2-149) 07/08/18 06:55 Cholesterol 141 mg/dL (50-199) 07/08/18 06:55 46 mg/dL (50-130) L 07/08/18 06:55 79 mg/dL (40-59) H 07/08/18 06:55 1.78 % 07/08/18 06:55 Vitamin B12 1706 pg/mL (211-911) H 07/08/18 09:18 Active Medications - Current Medications Current Medications: Generic Name Dose Route Start Last Admin Trade Name Freq PRN Reason Stop Dose Admin Acetaminophen 500 mg 07/07/18 16:14 07/13/18 17:22 Tylenol PO 500 mg Q6H PRN Administration Pain, Mild (1-3) Al Hydrox/Mg Hydrox/Simethicone 15 ml 07/09/18 14:01 07/11/18 10:02 Alum-Mag Hydrox-Simeth 227-064-09zd/5ml PO 15 ml Q4H PRN Administration Indigestion Aspirin 325 mg 07/15/18 08:00 07/17/18 08:03 Ecotrin PO 325 mg QDAY GORDO Administration Atorvastatin Calcium 40 mg 07/07/18 21:00 07/16/18 21:08 Lipitor PO 40 mg QHS GORDO Administration Bisacodyl 10 mg 07/07/18 16:14 Dulcolax [place] QDAY PRN Constipation Calcium Carbonate/Glycine 1,000 mg 07/08/18 11:30 07/09/18 05:10 Tums PO 1,000 mg Q6H PRN Administration Indigestion Dextrose 50 ml 07/07/18 15:48 D50w (25gm) Syringe IV PRN PRN Hypoglycemia Docusate Sodium 100 mg 07/07/18 22:00 07/17/18 08:03 Colace PO 100 mg BID GORDO Administration Ergocalciferol 50,000 unit 07/13/18 10:00 07/13/18 12:34 Vitamin D2 PO 50,000 unit Mo GORDO Administration Famotidine 20 mg 07/09/18 15:00 07/17/18 08:03 Pepcid PO 20 mg QDAY GORDO Administration Furosemide 40 mg 07/08/18 08:00 07/17/18 08:03 Lasix PO 40 mg QDAY GORDO Administration Gabapentin 100 mg 07/12/18 22:00 07/17/18 08:03 Neurontin PO 100 mg BID GORDO Administration Heparin Sodium (Porcine) 5,000 unit 07/07/18 22:00 07/17/18 06:01 Heparin SUB-Q 5,000 unit Q8HR GORDO Administration Hydralazine HCl 50 mg 07/14/18 14:00 07/17/18 06:01 Apresoline PO 50 mg Q8HR GORDO Administration Hydroxyzine HCl 25 mg 07/10/18 17:06 07/16/18 16:53 Atarax PO 25 mg Q6H PRN Administration Itching Hydroxyzine HCl 50 mg 07/13/18 08:00 07/17/18 08:04 Atarax PO 50 mg TID GORDO Administration Sodium Chloride 100 mls @ 999 mls/hr 07/08/18 10:00 Nacl 0.9% IV JEANINE PRN Hypotension Insulin Human Lispro 0 unit 07/07/18 16:30 07/17/18 08:09 Humalog SUB-Q Not Given ACHS GORDO Protocol Metoprolol Tartrate 25 mg 07/07/18 22:00 07/17/18 08:03 Lopressor PO 25 mg BID GORDO Administration Multivit/Ca Carb/B Cmplx/FA/Prenat 1 cap 07/12/18 21:00 07/17/18 08:03 Renal Caps PO 1 cap DAILY GORDO Administration Ondansetron HCl 4 mg 07/07/18 16:17 Zofran Odt PO Q8H PRN Nausea And Vomiting Sevelamer Carbonate 2,400 mg 07/08/18 07:30 07/17/18 08:03 Renvela PO 2,400 mg AC GORDO Administration Simethicone 80 mg 07/11/18 08:45 Mylicon PO Q6H PRN Gas pain Nutrition/Malnutrition Assess - Dietary Evaluation Nutrition/Malnutrition Findings: Nutrition Notes Start: 07/08/18 14:15 Freq: Status: Active Protocol: Document 07/15/18 16:14 RM (Rec: 07/15/18 16:17 RM [id number]) Nutrition Notes Initial or Follow up Brief Note Current Diagnosis CKD (stage V CKD),Coronary Artery Disease,Diabetes, Hypertension,Heart Failure, Hyperlipidemia Other Pertinent Diagnosis CVA with (R) hemiparesis Current Diet Renal/Consistent CHO Labs/Tests No recent labs Pertinent Medications Lasix Height 5 ft 7 in Weight 81.193 kg [place] Body Weight (kg) 67.27 BMI 28.0 Subjective/Other Information Pt stated that his appetite is good and that he ate all of his breakfast and lunch. Burn Absent Trauma Absent Nutrition Intervention Revisit per MD consult or patient Sign Off request:
--- NOTE | 2018-07-17 15:05 | Progress Note ---
Assessment and Plan - Patient Problems (1) Hyperkalemia Current Visit: No Status: Acute Plan to address problem: cont 2g k renal diet, cont HD on MWF schedule. recommend to hold HUNTER-I/ARB given persistent hyperkalemia. for HD today using 2K bath. (2) Hypertensive chronic kidney disease with stage 5 chronic kidney disease or end stage renal disease Current Visit: Yes Status: Acute Plan to address problem: monitor BP on current meds incl. hydralazine, metoprolol, lasix. will adjust UF for further volume/BP control. (3) End stage renal disease on dialysis Current Visit: No Status: Chronic Plan to address problem: cont HD on MWF schedule (4) Acute cerebrovascular accident Current Visit: Yes Status: Acute Plan to address problem: s/p tPA treatment, on ASA, cont PT/OT Subjective Date of service: 07/17/18 Principal diagnosis: CVA with right hemiparesis, ESRD A on HD on MWF, T2 DM, CAD. Interval history: Pt awake, alert, in no acute distress. Objective - Vital Signs Vital signs: Vital Signs - 12hr 07/17/18 07/17/18 07/17/18 04:54 06:01 07:41 Temperature 97.5 F L 97.5 F L Pulse Rate 74 74 80 Respiratory 20 18 Rate Blood Pressure 149/89 149/79 144/76 O2 Sat by Pulse 97 96 Oximetry 07/17/18 07/17/18 13:50 14:00 Temperature Pulse Rate 80 771 H Respiratory Rate Blood Pressure 155/93 158/83 O2 Sat by Pulse Oximetry - General Appearance General appearance: well-developed, well-nourished, appears stated age EENT: ATNC, PERRL, mucous membranes moist Neck: no JVD Respiratory: Present: Clear to Ascultation Cardiology: regular, S1S2 Gastrointestinal: normoactive bowel sounds Integumentary: no rash, other (no edema ) Neurologic: no focal deficit, alert and oriented x3, strength 5/5, CN 3-12 intact Psychiatric: mood/affect appropriate, cooperative - Lab 07/17/18 05:46 07/17/18 05:46 Most recent lab results Calcium 10.0 mg/dL (8.4-10.2) 07/17/18 05:46 Phosphorus 6.20 mg/dL (2.5-4.5) H 07/13/18 09:23 Magnesium 2.70 mg/dL (1.7-2.3) H 07/13/18 09:23 Medications & Allergies - Medications Allergies/Adverse Reactions: Allergies No Known Allergies Allergy (Verified 02/28/17 00:21) Home Medications: Home Medications Medication Instructions Recorded Confirmed Last Taken Type Rosuvastatin Calcium [Crestor] 20 mg PO QHS 07/03/17 07/09/18 1 Day Ago History ~03/10/18 Sevelamer Carbonate [Renvela] 2,400 mg PO TIDWM 07/03/17 07/09/18 1 Day Ago History ~03/10/18 Aspirin [Aspirin BABY CHEW TAB] 81 mg PO QDAY #30 tab.chew 07/05/17 07/09/18 1 Day Ago Rx ~03/10/18 B Complex 11/Folic/C/Biot/Zinc 1 each PO DAILY 02/13/18 07/09/18 1 Day Ago History [Dialyvite with Zinc Tablet] ~03/10/18 Ergocalciferol (Vitamin D2) 50,000 unit PO QWEEK 02/13/18 07/09/18 1 Day Ago History [Drisdol] ~03/10/18 Omeprazole 20 mg PO QDAY 02/13/18 07/09/18 1 Day Ago History ~03/10/18 ISOSORBIDE MONOnitrate [Imdur ER] 30 mg PO DAILY #30 tablet 02/14/18 07/09/18 1 Day Ago Rx ~03/10/18 Metoprolol [Lopressor TAB] 12.5 mg PO BID #30 tablet 02/14/18 07/09/18 1 Day Ago Rx ~03/10/18 Gabapentin [Neurontin] 100 mg PO BID #60 capsule 05/03/18 07/09/18 Unknown Rx Verapamil [Calan] 80 mg PO Q8HR #90 tablet 05/03/18 07/09/18 Unknown Rx Hydroxyzine HCl [hydrOXYzine] 50 mg PO TID 05/14/18 07/09/18 Unknown History traMADol [Ultram 50 MG tab] 50 mg PO Q6HR PRN 05/14/18 07/09/18 Unknown History Active Medications: Generic Name Dose Route Start Last Admin Trade Name Freq PRN Reason Stop Dose Admin Acetaminophen 500 mg 07/07/18 16:14 07/13/18 17:22 Tylenol PO 500 mg Q6H PRN Administration Pain, Mild (1-3) Al Hydrox/Mg Hydrox/Simethicone 15 ml 07/09/18 14:01 07/11/18 10:02 Alum-Mag Hydrox-Simeth 490-474-21cq/5ml PO 15 ml Q4H PRN Administration Indigestion Aspirin 325 mg 07/15/18 08:00 07/17/18 08:03 Ecotrin PO 325 mg QDAY GORDO Administration Atorvastatin Calcium 40 mg 07/07/18 21:00 07/16/18 21:08 Lipitor PO 40 mg QHS GORDO Administration Bisacodyl 10 mg 07/07/18 16:14 Dulcolax [place] QDAY PRN Constipation Calcium Carbonate/Glycine 1,000 mg 07/08/18 11:30 07/09/18 05:10 Tums PO 1,000 mg Q6H PRN Administration Indigestion Dextrose 50 ml 07/07/18 15:48 D50w (25gm) Syringe IV PRN PRN Hypoglycemia Docusate Sodium 100 mg 07/07/18 22:00 07/17/18 08:03 Colace PO 100 mg BID GORDO Administration Ergocalciferol 50,000 unit 07/13/18 10:00 07/13/18 12:34 Vitamin D2 PO 50,000 unit Mo GORDO Administration Famotidine 20 mg 07/09/18 15:00 07/17/18 08:03 Pepcid PO 20 mg QDAY GORDO Administration Furosemide 40 mg 07/08/18 08:00 07/17/18 08:03 Lasix PO 40 mg QDAY GORDO Administration Gabapentin 100 mg 07/12/18 22:00 07/17/18 08:03 Neurontin PO 100 mg BID GORDO Administration Heparin Sodium (Porcine) 5,000 unit 07/07/18 22:00 07/17/18 14:46 Heparin SUB-Q 5,000 unit Q8HR GORDO Administration Hydralazine HCl 50 mg 07/14/18 14:00 07/17/18 14:47 Apresoline PO Not Given Q8HR GORDO Hydroxyzine HCl 25 mg 07/10/18 17:06 07/16/18 16:53 Atarax PO 25 mg Q6H PRN Administration Itching Hydroxyzine HCl 50 mg 07/13/18 08:00 07/17/18 14:43 Atarax PO 50 mg TID GORDO Administration Sodium Chloride 100 mls @ 999 mls/hr 07/08/18 10:00 Nacl 0.9% IV JEANINE PRN Hypotension Insulin Human Lispro 0 unit 07/07/18 16:30 07/17/18 12:19 Humalog SUB-Q Not Given ACHS [facility] Protocol Metoprolol Tartrate 25 mg 07/07/18 22:00 07/17/18 08:03 Lopressor PO 25 mg BID GORDO Administration Multivit/Ca Carb/B Cmplx/FA/Prenat 1 cap 07/12/18 21:00 07/17/18 12:19 Renal Caps PO Not Given DAILY GORDO Ondansetron HCl 4 mg 07/07/18 16:17 Zofran Odt PO Q8H PRN Nausea And Vomiting Sevelamer Carbonate 2,400 mg 07/08/18 07:30 07/17/18 12:03 Renvela PO 2,400 mg AC GORDO Administration Simethicone 80 mg 07/11/18 08:45 Mylicon PO Q6H PRN Gas pain
[2018-07-17] MEDS ORDERED: NACL 0.9 (PRIMING MACHINE ONLY DIALYSIS) MC ONE (18:24)
[2018-07-18] MEDS: HEPARIN SUB-Q SCH (05:40)
[2018-07-18] MEDS: APRESOLINE PO SCH (05:40)
--- NOTE | 2018-07-18 07:29 | Progress Note ---
Assessment and Plan - Patient Problems (1) Hyperkalemia Current Visit: Yes Status: Acute Plan to address problem: Repeat potassium stat. Continue low potassium diet and HUNTER inhibitor/angiotensin receptor carrillo on hold. If repeat potassium is fine, Okay to discharge home from my standpoint (2) Acute cerebrovascular accident Current Visit: Yes Status: Acute Plan to address problem: Improved with rehabilitation (3) Hypertensive chronic kidney disease with stage 5 chronic kidney disease or end stage renal disease Current Visit: Yes Status: Acute Plan to address problem: Blood pressure is controlled. Continue current medications and follow blood pressure at the outpatient dialysis clinic (4) ESRD (end stage renal disease) on dialysis Current Visit: No Status: Acute Plan to address problem: Hemodialysis on a Friday, Friday and Friday schedule. Patient will go to the outpatient dialysis clinic on Friday (5) Type 2 diabetes mellitus with diabetic chronic kidney disease Current Visit: No Status: Chronic Qualifiers: Chronic kidney disease stage: on chronic dialysis Plan to address problem: Blood sugar management by primary attending. Subjective Date of service: 07/18/18 Principal diagnosis: CVA with right hemiparesis, ESRD A on HD on MWF, T2 DM, CAD. Interval history: Patient seen lying in bed. I really want to go home. I feel better. Objective - Exam Narrative Exam: Middle aged -[place] male lying in bed in no acute distress HEENT: NCAT, pink oral mucous membrane Neck: Supple, no venous distention CVS: S1S2 RRR with no murmur, rub or gallop Chest: Clear to auscultation Abdomen: Distended, soft, nontender, no organomegaly, bowel sounds are present Extremities: No edema Neuro: Awake, alert speech just a bit slurred with subtle facial asymmetry - Vital Signs Vital signs: Vital Signs - 12hr 07/18/18 07/18/18 03:58 05:40 Temperature 97.8 F Pulse Rate 77 Respiratory 18 Rate Blood Pressure 132/74 132/74 O2 Sat by Pulse 95 Oximetry - Lab 07/17/18 05:46 07/17/18 05:46 Most recent lab results Calcium 10.0 mg/dL (8.4-10.2) 07/17/18 05:46 Phosphorus 6.20 mg/dL (2.5-4.5) H 07/13/18 09:23 Magnesium 2.70 mg/dL (1.7-2.3) H 07/13/18 09:23 Medications & Allergies - Medications Allergies/Adverse Reactions: Allergies No Known Allergies Allergy (Verified 02/28/17 00:21) Home Medications: Home Medications Medication Instructions Recorded Confirmed Last Taken Type Rosuvastatin Calcium [Crestor] 20 mg PO QHS 07/03/17 07/09/18 1 Day Ago History ~03/10/18 Sevelamer Carbonate [Renvela] 2,400 mg PO TIDWM 07/03/17 07/09/18 1 Day Ago History ~03/10/18 Aspirin [Aspirin BABY CHEW TAB] 81 mg PO QDAY #30 tab.chew 07/05/17 07/09/18 1 Day Ago Rx ~03/10/18 B Complex 11/Folic/C/Biot/Zinc 1 each PO DAILY 02/13/18 07/09/18 1 Day Ago History [Dialyvite with Zinc Tablet] ~03/10/18 Ergocalciferol (Vitamin D2) 50,000 unit PO QWEEK 02/13/18 07/09/18 1 Day Ago History [Drisdol] ~03/10/18 Omeprazole 20 mg PO QDAY 02/13/18 07/09/18 1 Day Ago History ~03/10/18 ISOSORBIDE MONOnitrate [Imdur ER] 30 mg PO DAILY #30 tablet 02/14/18 07/09/18 1 Day Ago Rx ~03/10/18 Metoprolol [Lopressor TAB] 12.5 mg PO BID #30 tablet 02/14/18 07/09/18 1 Day Ago Rx ~03/10/18 Gabapentin [Neurontin] 100 mg PO BID #60 capsule 05/03/18 07/09/18 Unknown Rx Verapamil [Calan] 80 mg PO Q8HR #90 tablet 05/03/18 07/09/18 Unknown Rx Hydroxyzine HCl [hydrOXYzine] 50 mg PO TID 05/14/18 07/09/18 Unknown History traMADol [Ultram 50 MG tab] 50 mg PO Q6HR PRN 05/14/18 07/09/18 Unknown History Active Medications: Generic Name Dose Route Start Last Admin Trade Name Freq PRN Reason Stop Dose Admin Acetaminophen 500 mg 07/07/18 16:14 07/13/18 17:22 Tylenol PO 500 mg Q6H PRN Administration Pain, Mild (1-3) Al Hydrox/Mg Hydrox/Simethicone 15 ml 07/09/18 14:01 07/11/18 10:02 Alum-Mag Hydrox-Simeth 733-918-04wn/5ml PO 15 ml Q4H PRN Administration Indigestion Aspirin 325 mg 07/15/18 08:00 07/17/18 08:03 Ecotrin PO 325 mg QDAY GORDO Administration Atorvastatin Calcium 40 mg 07/07/18 21:00 07/17/18 21:47 Lipitor PO 40 mg QHS GORDO Administration Bisacodyl 10 mg 07/07/18 16:14 Dulcolax [place] QDAY PRN Constipation Calcium Carbonate/Glycine 1,000 mg 07/08/18 11:30 07/09/18 05:10 Tums PO 1,000 mg Q6H PRN Administration Indigestion Dextrose 50 ml 07/07/18 15:48 D50w (25gm) Syringe IV PRN PRN Hypoglycemia Docusate Sodium 100 mg 07/07/18 22:00 07/17/18 21:46 Colace PO 100 mg BID GORDO Administration Ergocalciferol 50,000 unit 07/13/18 10:00 07/13/18 12:34 Vitamin D2 PO 50,000 unit Mo GORDO Administration Famotidine 20 mg 07/09/18 15:00 07/17/18 08:03 Pepcid PO 20 mg QDAY GORDO Administration Furosemide 40 mg 07/08/18 08:00 07/17/18 08:03 Lasix PO 40 mg QDAY GORDO Administration Gabapentin 100 mg 07/12/18 22:00 07/17/18 21:46 Neurontin PO 100 mg BID GORDO Administration Heparin Sodium (Porcine) 5,000 unit 07/07/18 22:00 07/18/18 05:40 Heparin SUB-Q 5,000 unit Q8HR GORDO Administration Hydralazine HCl 50 mg 07/14/18 14:00 07/18/18 05:40 Apresoline PO 50 mg Q8HR GORDO Administration Hydroxyzine HCl 25 mg 07/10/18 17:06 07/16/18 16:53 Atarax PO 25 mg Q6H PRN Administration Itching Hydroxyzine HCl 50 mg 07/13/18 08:00 07/17/18 21:47 Atarax PO 50 mg TID GORDO Administration Sodium Chloride 100 mls @ 999 mls/hr 07/08/18 10:00 Nacl 0.9% IV JEANINE PRN Hypotension Insulin Human Lispro 0 unit 07/07/18 16:30 07/17/18 21:59 Humalog SUB-Q Not Given ACHS [facility] Protocol Metoprolol Tartrate 25 mg 07/07/18 22:00 07/17/18 21:59 Lopressor PO Not Given BID [facility] Multivit/Ca Carb/B Cmplx/FA/Prenat 1 cap 07/12/18 21:00 07/17/18 12:19 Renal Caps PO Not Given DAILY [facility] Ondansetron HCl 4 mg 07/07/18 16:17 Zofran Odt PO Q8H PRN Nausea And Vomiting Sevelamer Carbonate 2,400 mg 07/08/18 07:30 07/17/18 17:38 Renvela PO Not Given AC [facility] Simethicone 80 mg 07/11/18 08:45 Mylicon PO Q6H PRN Gas pain
--- NOTE | 2018-07-18 08:03 | Discharge Summary ---
Providers - Providers Date of Admission: 07/07/18 17:26 Date of discharge: 07/18/18 Attending physician: DESIRAE MARY III, MD 07/07/18 15:48 Consult to Dietitian/Nutrition [CONS] Routine Physician Instructions: Reason For Exam: Reason for Consult: Diet education Consult to Physician [CONS] Urgent Comment: Consulting Provider: BONY DOBBS Physician Instructions: Reason For Exam: ESRD on HD, renal and electrolyte management Occupational Therapy Evaluate and Treat [CONS] Routine Comment: Reason For Exam: ADL dysfunction Physical Therapy Evaluation and Treat [CONS] Routine Comment: Reason For Exam: Mobility Dysfunction 07/07/18 15:56 Consult to Case Management [CONS] Routine Services Needed at Discharge: Home Health Services Notified:: cm notified 07/07/18 16:49 Speech Therapy Evaluation and Treat [CONS] Routine Reason For Exam: CVA, dysphagia,dysarthria, possible cognition 07/07/18 16:50 Consult to Physician [CONS] Routine Comment: Consulting Provider: TREVIN HUNTER Physician Instructions: Reason For Exam: Medical Management - HTN, DM, CHF Primary care physician: RENA LOMBARDI Hospitalization Reason for admission: CVA Condition: Fair Hospital course: 63-year-old [id number] male who developed weakness during dialysis was sent to the hospital. 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 Afterwards he is monitored closely in the ICU per protocol. Once stable he was transferred to the floor and seen by maria e ruiz. He currently has dysarthria and states he may have some issues with word finding. Most recently he was on a dysphagia diet and we will have swallowing assessed to ensure his he is safe. He has a history of seizures but is not taking any AEDs. He states his last seizure activity was years ago by his account during dialysis. He still has significant right-sided weakness as well as a right facial droop. After he was medically cleared he was transferred for further rehabilitation. All available outside hospital records were reviewed, most recent hospital stays here have also been reviewed. Discussed smoking cessation, alcohol sensation, and secondary stroke prevention and prognosis with the patient. We'll start therapy evaluations tomorrow morning and hope to see further return of function. Hospitalist group and nephrology have both been consulted and I appreciate their assistance. Patient progress fairly well with therapy. His diet was advanced to regular consistency. He regained strength in the weak right side and is almost back to baseline at this time. Ambulation is still not ideal however it is functional and her the patient and his this is the way he has walked for a long time since before the stroke. He does have intermittent loss of balance but has not fallen. He will be safest using a rolling walker even though he wants to go back to a cane. He may progress to being able to use a cane in the future but is not there at this point. He does have issues with decreased safety awareness and part of this may be his baseline personality according to his . Have discussed with him the need for smoking cessation as well as adherence to secondary stroke prevention on several occasions. Outside records from the hospital we received him from showed that he did have CHF however records from our hospital do not necessarily support that. At any rate he is on beta carrillo. Nephrology managed his electrolytes and dialysis while he was on rehabilitation. We had issues with attempting to maintain his potassium level and he was frequently hyperkalemic. He will need close follow up with nephrology at home and will need to continue dialysis. Blood pressure was a little difficult to maintain at times as well and internal medicine helped us with this. They started hydralazine 30 mg 3 times a day which seemed to improve his overall pressure, however at times he does seem to dip a little low into the upper 90s systolic. He'll need to be monitored on this closely and may need further adjustment to his blood pressure regimen in order to maintain a normalized blood pressure. I have asked him to monitor his blood pressure on a regular basis and provide that to his PCP. On day of discharge we are awaiting a stat repeat potassium level. Yesterday he was elevated at 6.2 and required kionex. As long as he is normalized we will discharge once we get the results back. He'll continue therapy with home health nursing and therapy. Disposition: DC/TX- HOME UNDER HOME [facility] Time spent for discharge: >30mins Core Measure Documentation - Palliative Care Palliative Care/ Comfort Measures: Not Applicable - Core Measures Any of the following diagnoses?: heart failure, stroke - Heart Failure Discharge Requirements HUNTER/ARB for LVSD if EF <40%: Not Applicable Beta carrillo at discharge: Yes - Stroke Discharge Requirements Statin for LDL = or >70 mg/dl on DC: Yes Anticoag for atrial fib/atrial flutter: Not Applicable Antithrombotic for ischemic stroke: Yes Exam - Physical Exam Narrative exam: MUSCULOSKELETAL SPECIALTY EXAM CONSTITUTIONAL: Well developed, well nourished, appropriately groomed. RIGHT hand dominant. RESPIRATORY: Clear to auscultation bilaterally, no increased work of breathing CARDIOVASCULAR: Regular Rate/ Rhythm, no swelling, edema or tenderness in BUE or BLE. All extremities warm. Palpable thrill in left arm GI: + bowel sounds, soft, NTTP, slightly distended, protuberant. INTEGUMENTARY: Normal, no lesion, rash, masses or bruising noted in extremities. MUSCULOSKELETAL: BUE and BLE normal without defect, subluxation, effusion or TTP. Mild crepitus on RUE. SA EF WE EE FF FA HF KE ADF EHL APF R 4/5 4/5 4/ 4/5 4/5 4/5 4/5 4/5 4/5 4/5 4/5 L 4/ 4/ 4/5 4/ 4/5 4/ 4/ 4/ 4/ 4/ 4/5 ROM - normal Tone - normal NEURO: Right facial droop,Tongue protrudes midline to possibly left (likely from previous stroke), Otherwise CN II-XII grossly intact Sensation intact in all extremities without extinction. No tremor noted in 4 extremities. Naming and repetition intact. Follows 2 step commands. Aphasia not appreciated Dysarthria present slightly Dysphagia upgraded to regular diet Neglect not appreciated POSTURE and GAIT: Sitting posture good. Balance leans right. Gait with RW, functional but not smooth, decreased endurance, some LOB PSYCH: Alert, orientated x3, affect appears euthymic. Insight appears intact, decreased safety awareness/personality. - Constitutional Vitals: Temp Pulse Resp BP Pulse Ox 36.6 C 77 18 132/74 95 07/18/18 03:58 07/18/18 03:58 07/18/18 03:58 07/18/18 05:40 07/18/18 03:58 - Allied Health Allied health notes reviewed: nursing, PT, OT Plan Activity: advance as tolerated, no driving until cleared by PCP, fall precautions Weight Bearing Status: Full Weight Bearing Diet: renal Special Instructions: record daily weights, record daily BP diary, smoking cessation, physical therapy, occupational therapy, home health RN Durable Medical Equipment Needed Upon Discharge: Walker-Rolling Follow up with: RENA LOMBARDI MD [Primary Care Provider] - 7 Days Prescriptions: AtorvaSTATin [Lipitor] 40 mg PO QHS #30 tablet hydrALAZINE [Apresoline TAB] 50 mg PO Q8HR #90 tablet Aspirin EC 325 mg PO QDAY #30 tablet hydrOXYzine HCL [Atarax] 25 mg PO Q6H PRN #30 tablet PRN Reason: Itching B Complex 11/Folic/C/Biot/Zinc [Dialyvite with Zinc Tablet] 1 each PO DAILY #30 tablet Ergocalciferol (Vitamin D2) [Drisdol] 50,000 unit PO QWEEK #5 capsule Furosemide [Lasix TAB] 40 mg PO QDAY #30 tablet Metoprolol [Lopressor TAB] 25 mg PO BID #60 tablet Gabapentin [Neurontin] 100 mg PO BID #60 capsule Famotidine [Pepcid] 20 mg PO QDAY #30 tablet Sevelamer Carbonate [Renvela] 2,400 mg PO AC #180 tablet Pending Studies STAT BMP. May discharge home once results are in and Potassium is normalized.
[2018-07-18] MEDS: HumaLOG SUB-Q SCH ×2 (08:19→12:15)
[2018-07-18] MEDS: COLACE PO SCH (09:12)
[2018-07-18] MEDS: ATARAX PO SCH (09:12)
[2018-07-18] MEDS: LOPRESSOR PO SCH (09:12)
[2018-07-18] MEDS: Renal Caps PO SCH (09:12)
[2018-07-18] MEDS: LASIX PO SCH (09:12)
[2018-07-18] MEDS: PEPCID PO SCH (09:12)
[2018-07-18] MEDS: RENVELA PO SCH ×2 (09:12→12:15)
[2018-07-18] MEDS: ECOTRIN PO SCH (09:12)
[2018-07-18] MEDS: NEURONTIN PO SCH (09:13)
--- NOTE | 2018-07-18 09:20 | Progress Note ---
Assessment and Plan Assessment and plan: This is 63 yo M with past medical history of hypertension, CAD, ESRD on HD on MWF schedule, who was recently hospitalized at [facility] for acute CVA from 07/03 - 07/06, after presenting with slurred speech, Rt upper/lower extremity weakness, required tPA treatment on 07/03, after which symptoms improved to some degree. pt was then transferred to [facility] for acute rehab on 07/07, medicine service consult is requested for medical management. Acute CVA, - s/p tPA treatmet, cont PT/OT - cont aspirin and statin, monitor BP. hyperkalemia, monitor BMP, should correct with HD, kayexalate as needed Peripheral neuropathy. neurontin if needed ESRD. Continue Friday, nephrology following Anemia chronic disease, h/h stable Diabetes mellitus type 2 - insulin regimen adjust as needed CAD. Patient with coronary artery disease status post multivessel PCI. cont medical mx - will follow with you Hypertension - controlled with current medication regimen. Patient is stable medically agree with the discharge. History Interval history: Patient was seen and evaluated this morning, patient didn't have any complaints. No nursing issues reported to me overnight. Hospitalist Physical - Physical exam Narrative exam: Not in cardiopulmonary distress. The patient appeared well nourished and normally developed. Vital signs as documented. Head exam is unremarkable. No scleral icterus . Neck is without jugular venous distension, thyromegaly, or carotid bruits. Lungs are clear to auscultation. Cardiac exam reveals regular rate and Rhythm. First and second heart sounds normal. No murmurs, rubs or gallops. Abdominal exam reveals normal bowel sounds, no masses, no organomegaly and no aortic enlargement. Extremities are nonedematous and both femoral and pedal pulses are normal. ELECTRICIAN SHIP: Alert and oriented 3. Mild right-sided weakness. - Constitutional Vitals: Temp Pulse Resp BP Pulse Ox 98.0 F 92 H 18 140/66 97 07/18/18 08:10 07/18/18 08:10 07/18/18 08:10 07/18/18 08:10 07/18/18 08:10 General appearance: Present: no acute distress, well-nourished Results - Labs CBC & Chem 7: 07/17/18 05:46 07/17/18 05:46 Labs: Laboratory Last Values WBC 4.6 K/mm3 (4.5-11.0) 07/17/18 05:46 RBC 4.05 M/mm3 (3.65-5.03) 07/17/18 05:46 Hgb 13.7 gm/dl (11.8-15.2) 07/17/18 05:46 Hct 40.7 % (35.5-45.6) 07/17/18 05:46 MCV 101 fl (84-94) H 07/17/18 05:46 MCH 34 pg (28-32) H 07/17/18 05:46 MCHC 34 % (32-34) 07/17/18 05:46 RDW 15.2 % (13.2-15.2) 07/17/18 05:46 Plt Count 208 K/mm3 (140-440) 07/17/18 05:46 Lymph % (Auto) 28.9 % (13.4-35.0) 07/13/18 09:23 [place]pine % (Auto) 12.1 % (0.0-7.3) H 07/13/18 09:23 Eos % (Auto) 5.7 % (0.0-4.3) H 07/13/18 09:23 Baso % (Auto) Home Health Cna 07/13/18 09:23 Lymph # 1.4 K/mm3 (1.2-5.4) 07/13/18 09:23 Alpine # 0.6 K/mm3 (0.0-0.8) 07/13/18 09:23 Eos # 0.3 K/mm3 (0.0-0.4) 07/13/18 09:23 Baso # 0.1 K/mm3 (0.0-0.1) 07/13/18 09:23 Add Manual Diff Complete 07/12/18 05:44 Total Counted 100 07/12/18 05:44 Seg Neutrophils % 51.2 % (40.0-70.0) 07/13/18 09:23 Seg Neuts % (Manual) 54.0 % (40.0-70.0) 07/12/18 05:44 0 % 07/12/18 05:44 27.0 % (13.4-35.0) 07/12/18 05:44 Reactive Lymphs % (Man) 0 % 07/12/18 05:44 14.0 % (0.0-7.3) H 07/12/18 05:44 5.0 % (0.0-4.3) H 07/12/18 05:44 0 % (0.0-1.8) 07/12/18 05:44 0 % 07/12/18 05:44 0 % 07/12/18 05:44 0 % 07/12/18 05:44 0 % 07/12/18 05:44 Nucleated RBC % Not Reportable 07/12/18 05:44 Seg Neutrophils # 5.9 K/mm3 (1.8-7.7) 07/08/18 06:55 Seg Neutrophils # Man 3.0 K/mm3 (1.8-7.7) 07/12/18 05:44 Band Neutrophils # 0.0 K/mm3 07/12/18 05:44 1.5 K/mm3 (1.2-5.4) 07/12/18 05:44 Abs React Lymphs (Man) 0.0 K/mm3 07/12/18 05:44 0.8 K/mm3 (0.0-0.8) 07/12/18 05:44 0.3 K/mm3 (0.0-0.4) 07/12/18 05:44 0.0 K/mm3 (0.0-0.1) 07/12/18 05:44 0.0 K/mm3 07/12/18 05:44 0.0 K/mm3 07/12/18 05:44 0.0 K/mm3 07/12/18 05:44 Blast Cells # 0.0 K/mm3 07/12/18 05:44 WBC Morphology Not Reportable 07/12/18 05:44 Hypersegmented Neuts Not Reportable 07/12/18 05:44 Hyposegmented Neuts Not Reportable 07/12/18 05:44 Hypogranular Neuts Not Reportable 07/12/18 05:44 Not Reportable 07/12/18 05:44 Not Reportable 07/12/18 05:44 Not Reportable 07/12/18 05:44 Not Reportable 07/12/18 05:44 Not Reportable 07/12/18 05:44 Not Reportable 07/12/18 05:44 Consistent w auto 07/12/18 05:44 Not Reportable 07/12/18 05:44 Plt Clumps, EDTA Not Reportable 07/12/18 05:44 Not Reportable 07/12/18 05:44 Not Reportable 07/12/18 05:44 Not Reportable 07/12/18 05:44 Plt Morphology Comment Not Reportable 07/12/18 05:44 RBC Morphology Not Reportable 07/12/18 05:44 Dimorphic RBCs Not Reportable 07/12/18 05:44 Not Reportable 07/12/18 05:44 Not Reportable 07/12/18 05:44 Not Reportable 07/12/18 05:44 1+ 07/12/18 05:44 Not Reportable 07/12/18 05:44 1+ 07/12/18 05:44 Not Reportable 07/12/18 05:44 Not Reportable 07/12/18 05:44 Not Reportable 07/12/18 05:44 Not Reportable 07/12/18 05:44 Not Reportable 07/12/18 05:44 Not Reportable 07/12/18 05:44 Not Reportable 07/12/18 05:44 Not Reportable 07/12/18 05:44 Not Reportable 07/12/18 05:44 Not Reportable 07/12/18 05:44 Not Reportable 07/12/18 05:44 Not Reportable 07/12/18 05:44 Not Reportable 07/12/18 05:44 Acanthocytes (Spur) Not Reportable 07/12/18 05:44 Rouleaux Not Reportable 07/12/18 05:44 Not Reportable 07/12/18 05:44 Not Reportable 07/12/18 05:44 Not Reportable 07/12/18 05:44 Not Reportable 07/12/18 05:44 Hem Pathologist Commnt No 07/12/18 05:44 Sodium 138 mmol/L (137-145) 07/17/18 05:46 Potassium 6.2 mmol/L (3.6-5.0) H* D 07/17/18 05:46 Chloride 97.2 mmol/L (98-107) L 07/17/18 05:46 Carbon Dioxide 23 mmol/L (22-30) 07/17/18 05:46 24 mmol/L 07/17/18 05:46 BUN 55 mg/dL (9-20) H 07/17/18 05:46 8.9 mg/dL (0.8-1.5) H 07/17/18 05:46 Estimated GFR 7 ml/min 07/17/18 05:46 6 % 07/17/18 05:46 Glucose 90 mg/dL (75-100) 07/17/18 05:46 POC Glucose 81 (70-105) 07/18/18 08:14 4.7 % (4-6) 07/08/18 06:55 Calcium 10.0 mg/dL (8.4-10.2) 07/17/18 05:46 Phosphorus 6.20 mg/dL (2.5-4.5) H 07/13/18 09:23 Magnesium 2.70 mg/dL (1.7-2.3) H 07/13/18 09:23 0.20 mg/dL (0.1-1.2) 07/13/18 09:23 AST 25 units/L (5-40) 07/13/18 09:23 ALT 25 units/L (7-56) 07/13/18 09:23 57 units/L (35-129) 07/13/18 09:23 8.0 g/dL (6.3-8.2) 07/13/18 09:23 4.1 g/dL (3.9-5) 07/13/18 09:23 1.1 % 07/13/18 09:23 Triglycerides 52 mg/dL (2-149) 07/08/18 06:55 Cholesterol 141 mg/dL (50-199) 07/08/18 06:55 46 mg/dL (50-130) L 07/08/18 06:55 79 mg/dL (40-59) H 07/08/18 06:55 1.78 % 07/08/18 06:55 Vitamin B12 1706 pg/mL (211-911) H 07/08/18 09:18 Active Medications - Current Medications Current Medications: Generic Name Dose Route Start Last Admin Trade Name Freq PRN Reason Stop Dose Admin Acetaminophen 500 mg 07/07/18 16:14 07/13/18 17:22 Tylenol PO 500 mg Q6H PRN Administration Pain, Mild (1-3) Al Hydrox/Mg Hydrox/Simethicone 15 ml 07/09/18 14:01 07/11/18 10:02 Alum-Mag Hydrox-Simeth 867-360-10uu/5ml PO 15 ml Q4H PRN Administration Indigestion Aspirin 325 mg 07/15/18 08:00 07/18/18 09:12 Ecotrin PO 325 mg QDAY GORDO Administration Atorvastatin Calcium 40 mg 07/07/18 21:00 07/17/18 21:47 Lipitor PO 40 mg QHS GORDO Administration Bisacodyl 10 mg 07/07/18 16:14 Dulcolax ND QDAY PRN Constipation Calcium Carbonate/Glycine 1,000 mg 07/08/18 11:30 07/09/18 05:10 Tums PO 1,000 mg Q6H PRN Administration Indigestion Dextrose 50 ml 07/07/18 15:48 D50w (25gm) Syringe IV PRN PRN Hypoglycemia Docusate Sodium 100 mg 07/07/18 22:00 07/18/18 09:12 Colace PO 100 mg BID GORDO Administration Ergocalciferol 50,000 unit 07/13/18 10:00 07/13/18 12:34 Vitamin D2 PO 50,000 unit Mo GORDO Administration Famotidine 20 mg 07/09/18 15:00 07/18/18 09:12 Pepcid PO 20 mg QDAY GORDO Administration Furosemide 40 mg 07/08/18 08:00 07/18/18 09:12 Lasix PO 40 mg QDAY GORDO Administration Gabapentin 100 mg 07/12/18 22:00 07/18/18 09:13 Neurontin PO 100 mg BID GORDO Administration Heparin Sodium (Porcine) 5,000 unit 07/07/18 22:00 07/18/18 05:40 Heparin SUB-Q 5,000 unit Q8HR GORDO Administration Hydralazine HCl 50 mg 07/14/18 14:00 07/18/18 05:40 Apresoline PO 50 mg Q8HR GORDO Administration Hydroxyzine HCl 25 mg 07/10/18 17:06 07/16/18 16:53 Atarax PO 25 mg Q6H PRN Administration Itching Hydroxyzine HCl 50 mg 07/13/18 08:00 07/18/18 09:12 Atarax PO 50 mg TID GORDO Administration Sodium Chloride 100 mls @ 999 mls/hr 07/08/18 10:00 Nacl 0.9% IV JEANINE PRN Hypotension Insulin Human Lispro 0 unit 07/07/18 16:30 07/18/18 08:19 Humalog SUB-Q Not Given ACHS [facility] Protocol Metoprolol Tartrate 25 mg 07/07/18 22:00 07/18/18 09:12 Lopressor PO 25 mg BID GORDO Administration Multivit/Ca Carb/B Cmplx/FA/Prenat 1 cap 07/12/18 21:00 07/18/18 09:12 Renal Caps PO 1 cap DAILY GORDO Administration Ondansetron HCl 4 mg 07/07/18 16:17 Zofran Odt PO Q8H PRN Nausea And Vomiting Sevelamer Carbonate 2,400 mg 07/08/18 07:30 07/18/18 09:12 Renvela PO 2,400 mg AC GORDO Administration Simethicone 80 mg 07/11/18 08:45 Mylicon PO Q6H PRN Gas pain Nutrition/Malnutrition Assess - Dietary Evaluation Nutrition/Malnutrition Findings: Nutrition Notes Start: 07/08/18 14:1 5 Freq: Status: Active Protocol: Document 07/15/18 16:14 RM (Rec: 07/15/18 16:17 RM [id number]) Nutrition Notes Initial or Follow up Brief Note Current Diagnosis CKD (stage V CKD),Coronary Artery Disease,Diabetes, Hypertension,Heart Failure, Hyperlipidemia Other Pertinent Diagnosis CVA with (R) hemiparesis Current Diet Renal/Consistent CHO Labs/Tests No recent labs Pertinent Medications Lasix Height 5 ft 7 in Weight 81.193 kg [place] Body Weight (kg) 67.27 BMI 28.0 Subjective/Other Information Pt stated that his appetite is good and that he ate all of his breakfast and lunch. Burn Absent Trauma Absent Nutrition Intervention Revisit per MD consult or patient Sign Off request:
[2018-07-18 11:36] LABS: Calcium 9.6 mg/dL (8.4-10.2)
[2018-07-18 12:01] VITALS: BP 163/83
== END 2018-07-18 13:50 | disposition home health service (06) | DRG 56 ==
LOC: 3A 11:10 → UNDOADMIN 11:10 → 3B 17:26
PROVIDERS: ADMIT Physical Medicine & Rehabilitation; ATTEND Physical Medicine & Rehabilitation
PROC: 5A1D70Z Performance of Urinary Filtration, Intermittent, Less than 6 Hours Per Day (ICD-10-PCS; 2018-07-08)
PROC: 5A1D70Z Performance of Urinary Filtration, Intermittent, Less than 6 Hours Per Day (ICD-10-PCS; principal; 2018-07-10)
PROC: 5A1D70Z Performance of Urinary Filtration, Intermittent, Less than 6 Hours Per Day (ICD-10-PCS; 2018-07-13)
PROC: 5A1D70Z Performance of Urinary Filtration, Intermittent, Less than 6 Hours Per Day (ICD-10-PCS; 2018-07-15)
PROC: 5A1D70Z Performance of Urinary Filtration, Intermittent, Less than 6 Hours Per Day (ICD-10-PCS; 2018-07-17)
DX: I69.351 Hemiplegia and hemiparesis following cerebral infarction affecting right dominant side (principal); I63.9 Cerebral infarction, unspecified; N18.6 End stage renal disease; I13.2 Hypertensive heart and chronic kidney disease with heart failure and with stage 5 chronic kidney disease, or end stage renal disease; R29.810 Facial weakness; I25.10 Atherosclerotic heart disease of native coronary artery without angina pectoris; E78.5 Hyperlipidemia, unspecified; E87.5 Hyperkalemia; E11.42 Type 2 diabetes mellitus with diabetic polyneuropathy; R47.1 Dysarthria and anarthria; D63.8 Anemia in other chronic diseases classified elsewhere; R13.10 Dysphagia, unspecified; R53.81 Other malaise; R56.9 Unspecified convulsions; E11.22 Type 2 diabetes mellitus with diabetic chronic kidney disease; I50.9 Heart failure, unspecified; Z83.3 Family history of diabetes mellitus; Z82.49 Family history of ischemic heart disease and other diseases of the circulatory system; Z68.28 Body mass index [BMI] 28.0-28.9, adult; Z99.2 Dependence on renal dialysis; Z95.5 Presence of coronary angioplasty implant and graft
CPT/HCPCS: 36415; 74019; 80048; 80053; 80061; 82607; 82962; 83036; 83735; 84100; 85007; 85025; 85027; G0378; A9270-GY; G0515-GN; J1644; J7030

== ENCOUNTER 2018-07-24 01:34 | Emergency (ER) | payer MEDICARE ==
[2018-07-24] MEDS ORDERED: IBUPROFEN PO ONE (02:08)
[2018-07-24] MEDS ORDERED: NORCO 7.5/325 PO ONE (02:08)
--- NOTE | 2018-07-24 03:11 | XRay Report ---
PROCEDURE: XR KNEE 4+V LT TECHNIQUE: Left knee radiographs, AP, lateral, and sunrise views. HISTORY: pain after a fall COMPARISONS: None FINDINGS: Fracture (s) and/or Dislocation(s): None Alignment: Normal Joint space(s): Normal Soft tissues: There is a small joint effusion. There is no soft tissue swelling or mass. There are d iffuse vascular calcifications. Bone mineralization: Normal Foreign bodies: None IMPRESSION: There is no fracture or dislocation. This document is electronically signed by Channing Mary MD., July 24 2018 03:09:55 AM ET
[2018-07-24 03:49] VITALS: BP 154/89
--- NOTE | 2018-07-24 04:05 | Emergency Department Report ---
ED Extremity Problem HPI - General Chief complaint: Extremity Injury, Lower Stated complaint: FALL, KNEE PAIN Time Seen by Provider: 07/24/18 01:58 Source: EMS Mode of arrival: Stretcher Limitations: Physical Limitation - History of Present Illness Initial comments: Patient is a 63-year-old male who had a slip and fall earlier today. Patient states that he was napping and so was knocking on his door loudly. The patient tried to theodore to get to the door was E To the tile floor he slipped and fell. Patient fell directly onto the left knee. Patient states he's had difficulty walking. Patient states the pain is a 10 out of 10 in severity to his left knee. Severity scale (0 -10): 10 Quality: aching, constant Improves with: nothing Worsens with: weight bearing, walking, palpation - Related Data Previous Rx's Medication Instructions Recorded Last Taken Type Aspirin EC 325 mg PO QDAY #30 tablet 07/18/18 Unknown Rx AtorvaSTATin [Lipitor] 40 mg PO QHS #30 tablet 07/18/18 Unknown Rx B Complex 11/Folic/C/Biot/Zinc 1 each PO DAILY #30 tablet 07/18/18 Unknown Rx [Dialyvite with Zinc Tablet] Ergocalciferol (Vitamin D2) 50,000 unit PO QWEEK #5 capsule 07/18/18 Unknown Rx [Drisdol] Famotidine [Pepcid] 20 mg PO QDAY #30 tablet 07/18/18 Unknown Rx Furosemide [Lasix TAB] 40 mg PO QDAY #30 tablet 07/18/18 Unknown Rx Gabapentin [Neurontin] 100 mg PO BID #60 capsule 07/18/18 Unknown Rx Metoprolol [Lopressor TAB] 25 mg PO BID #60 tablet 07/18/18 Unknown Rx Sevelamer Carbonate [Renvela] 2,400 mg PO AC #180 tablet 07/18/18 Unknown Rx hydrALAZINE [Apresoline TAB] 50 mg PO Q8HR #90 tablet 07/18/18 Unknown Rx hydrOXYzine HCL [Atarax] 25 mg PO Q6H PRN #30 tablet 07/18/18 Unknown Rx HYDROcodone/APAP 5-325 [[place] 1 each PO Q6HR PRN #14 tablet 07/24/18 Unknown Rx 5/325] Allergies Allergy/AdvReac Type Severity Reaction Status Date / Time No Known Allergies Allergy Verified 02/28/17 00:21 ED Review of Systems ROS: Stated complaint: FALL, KNEE PAIN Other details as noted in HPI Comment: All other systems reviewed and negative ED Past Medical Hx - Past Medical History Hx Hypertension: Yes Hx CVA: Yes (x2) Hx Heart Attack/AMI: Yes Hx Congestive Heart Failure: Yes Hx Diabetes: Yes Hx Deep Vein Thrombosis: No Hx Liver Disease: No Hx Renal Disease: No Hx Arthritis: No Hx Seizures: Yes (last seizure was in 2018 pt is no longer on Meds ) Hx Kidney Stones: No Hx Asthma: No Hx COPD: No Hx Dementia: No Hx HIV: No Additional medical history: Cardiac Stents, dialysis M-W- - Surgical History Hx Coronary Stent: Yes Hx Pacemaker: No Hx Internal Defibrillator: No Additional Surgical History: Cardiac stents 3 months ago 08/22? av graft to left arm - Social History Smoking Status: Former Smoker Substance Use Type: None - Medications Home Medications: Home Medications Medication Instructions Recorded Confirmed Last Taken Type Aspirin EC 325 mg PO QDAY #30 tablet 07/18/18 Unknown Rx AtorvaSTATin [Lipitor] 40 mg PO QHS #30 tablet 07/18/18 Unknown Rx B Complex 11/Folic/C/Biot/Zinc 1 each PO DAILY #30 tablet 07/18/18 Unknown Rx [Dialyvite with Zinc Tablet] Ergocalciferol (Vitamin D2) 50,000 unit PO QWEEK #5 capsule 07/18/18 Unknown Rx [Drisdol] Famotidine [Pepcid] 20 mg PO QDAY #30 tablet 07/18/18 Unknown Rx Furosemide [Lasix TAB] 40 mg PO QDAY #30 tablet 07/18/18 Unknown Rx Gabapentin [Neurontin] 100 mg PO BID #60 capsule 07/18/18 Unknown Rx Metoprolol [Lopressor TAB] 25 mg PO BID #60 tablet 07/18/18 Unknown Rx Sevelamer Carbonate [Renvela] 2,400 mg PO AC #180 tablet 07/18/18 Unknown Rx hydrALAZINE [Apresoline TAB] 50 mg PO Q8HR #90 tablet 07/18/18 Unknown Rx hydrOXYzine HCL [Atarax] 25 mg PO Q6H PRN #30 tablet 07/18/18 Unknown Rx HYDROcodone/APAP 5-325 [[place] 1 each PO Q6HR PRN #14 tablet 07/24/18 Unknown Rx 5/325] ED Physical Exam - General Limitations: Physical Limitation General appearance: alert, in no apparent distress - Head Head exam: Present: atraumatic, normocephalic - Eye Eye exam: Present: normal appearance, PERRL, EOMI - ENT ENT exam: Present: mucous membranes moist - Neck Neck exam: Present: normal inspection - Respiratory Respiratory exam: Absent: respiratory distress - GI/Abdominal GI/Abdominal exam: Present: soft. Absent: distended - Rectal Rectal exam: Present: deferred - Extremities Exam Extremities exam: Present: normal inspection - Expanded Lower Extremity Exam Left Knee exam: Present: tenderness, swelling, abrasion, effusion, full knee extension. Absent: laceration, ecchymosis, deformity, dislocation, erythema - Back Exam Back exam: Present: normal inspection - Neurological Exam Neurological exam: Present: alert, oriented X3 - Psychiatric Psychiatric exam: Present: normal affect, normal mood - Skin Skin exam: Present: warm, dry, intact, normal color. Absent: rash ED Course Vital Signs 07/24/18 07/24/18 07/24/18 01:45 02:00 03:00 Temperature 98.8 F Pulse Rate 85 84 86 Respiratory 13 26 H 15 Rate Blood Pressure 157/86 154/89 129/77 O2 Sat by Pulse 99 98 95 Oximetry 07/24/18 03:31 Temperature Pulse Rate 86 Respiratory 13 Rate Blood Pressure 154/89 O2 Sat by Pulse 94 Oximetry ED Medical Decision Making - Radiology Data Ordering Physician: CORKY VALDOVINOS MD Date of Service: 07/24/18 Procedure(s): XR knee 4+V LT Accession Number(s): [id number] cc: CORKY VALDOVINOS MD Fluoro Time In Minutes: PROCEDURE: XR KNEE 4+V LT TECHNIQUE: Left knee radiographs, AP, l ateral, and sunrise views. HISTORY: pain after a fall COMPARISONS: None FINDINGS: Fracture (s) and/or Dislocation(s): None Alignment: Normal Joint space(s): Normal Soft tissues: There is a small joint effusion. There is no soft tissue swelling or mass. There are diffuse vascular calcifications. Bone mineralization: Normal Foreign bodies: None IMPRESSION: There is no fracture or dislocation. This document is electronically signed by Channing Davenport MD., July 24 2018 03:09:55 AM ET Transcribed By: CO Dictated By: CHANNING DAVENPORT MD Electronically Authenticated By: CHANNING DAVENPORT MD Signed Date/Time: 07/24/18310 DD/ 3 TD/TT: 07/24/18243 - Medical Decision Making Patient's x-ray reveals no acute fracture or abnormality. Patient started on medications for pain relief. Patient's knee was Luis wrapped. Patient given crutches. Critical care attestation.: If time is entered above; I have spent that time in minutes in the direct care of this critically ill patient, excluding procedure time. ED Disposition Clinical Impression: Knee contusion Qualifiers: Encounter type: initial encounter Laterality: left Qualified Code(s): S80.02XA - Contusion of left knee, initial encounter Fall with injury Qualifiers: Encounter type: initial encounter Qualified Code(s): W19.XXXA - Unspecified fall, initial encounter Disposition: DC-01 TO HOME OR SELFCARE Is pt being admited?: No Does the pt Need Aspirin: No Condition: Stable Instructions: Knee Pain (ED), RICE Therapy (ED) Referrals: MICHAEL TERRAZSA MD [Staff Physician] - 3-5 Days Time of Disposition: 04:06
== END 2018-07-24 05:05 | disposition home or self-care (01) ==
LOC: ED 01:34
DX: S80.02XA Contusion of left knee, initial encounter (principal); I11.0 Hypertensive heart disease with heart failure; I50.9 Heart failure, unspecified; I25.2 Old myocardial infarction; E11.9 Type 2 diabetes mellitus without complications; Z87.891 Personal history of nicotine dependence; W01.0XXA Fall on same level from slipping, tripping and stumbling without subsequent striking against object, initial encounter; Y93.89 Activity, other specified; Y92.89 Other specified places as the place of occurrence of the external cause; Y99.8 Other external cause status

== ENCOUNTER 2018-07-30 13:41 | Emergency (ER) | payer MEDICARE ==
[2018-07-30 14:57] LABS: Basophils % (Auto) 0.3 % (0.0-1.8); Eosinophils # (Auto) 0.3 K/mm3 (0.0-0.4); Eosinophils % (Auto) 4.3 % (0.0-4.3); Hematocrit 30.2 % (35.5-45.6); Hemoglobin 10.4 gm/dl (11.8-15.2); Lymphocytes # (Auto) 0.9 K/mm3 (1.2-5.4); Lymphocytes % (Auto) 14.3 % (13.4-35.0); Mean Corpuscular HGB Conc 35 % (32-34); Mean Corpuscular Volume 103 fl (84-94); Monocytes # (Auto) 0.9 K/mm3 (0.0-0.8); Monocytes % (Auto) 13.9 % (0.0-7.3); Platelet Count 233 K/mm3 (140-440); Red Blood Count 2.95 M/mm3 (3.65-5.03); Red Cell Distribution Width 15.5 % (13.2-15.2)
[2018-07-30 15:11] LABS: INR 1.03 (0.87-1.13)
[2018-07-30 15:12] LABS: Partial Thromboplastin Time 34.5 Sec. (24.2-36.6)
[2018-07-30 15:14] LABS: Albumin 3.6 g/dL (3.9-5); Calcium 8.8 mg/dL (8.4-10.2)
--- NOTE | 2018-07-30 16:32 | XRay Report ---
PROCEDURE: XR CHEST 1V AP TECHNIQUE: Chest radiograph single view. HISTORY: Fall COMPARISONS: None . FINDINGS: Heart: Normal. Mediastinum/Vessels: Normal. Lungs/Pleural space: Normal. Bony thorax: No acute osseous abnormality. Life support devices: None. IMPRESSION: No acute cardiopulmonary abnormality. This document is electronically signed by Ghazal Andrade MD., July 30 2018 04:30:41 PM ET
--- NOTE | 2018-07-30 16:42 | XRay Report ---
PROCEDURE: XR SPINE LUMBOSACRAL 2-3V TECHNIQUE: 3 views of the lumbar spine HISTORY: Fall COMPARISONS: None. FINDINGS: There is no acute fracture or dislocation. The vertebral body heights are maintained. There is modera te intervertebral disc space narrowing at L3-L4. There is mild intervertebral disc space narrowing at L4-L5 and L5-S1. There is diffuse moderate facet arthropathy. The posterior elements are intact. The paravertebral soft tissues are normal. There are vascular calcifications. IMPRESSION: Degenerative changes of the lumbar spine without acute fracture or dislocation. This document is electronically signed by Ghazal Andrade MD., July 30 2018 04:40:54 PM ET
[2018-07-30 17:50] VITALS: BP 155/91
--- NOTE | 2018-07-30 18:10 | Emergency Department Report ---
HPI - General Chief Complaint: Fall Time Seen by Provider: 07/30/18 14:25 - HPI HPI: 63-year-old -[place] male presents to ED after falling today. He stated he has a history of stroke, with left sided weakness, and has had several falls the last couple of months. Hurt his back this time, complaining of low back pain, no loss of urine, no loss of bowel. ED Past Medical Hx - Past Medical History Previous Medical History?: Yes Hx Hypertension: Yes Hx CVA: Yes (x2 (residual right sided weakness)) Hx Heart Attack/AMI: Yes Hx Congestive Heart Failure: Yes Hx Diabetes: Yes Hx Deep Vein Thrombosis: No Hx Liver Disease: No Hx Renal Disease: No Hx Arthritis: No Hx Seizures: Yes (last seizure was in 2018 pt is no longer on Meds ) Hx Kidney Stones: No Hx Asthma: No Hx COPD: No Hx Dementia: No Hx HIV: No Additional medical history: Cardiac Stents, dialysis M-W-F - Surgical History Past Surgical History?: Yes Hx Coronary Stent: Yes Hx Pacemaker: No Hx Internal Defibrillator: No Additional Surgical History: Cardiac stents 3 months ago 08/22? av graft to left arm - Social History Smoking Status: Never Smoker Substance Use Type: None - Medications Home Medications: Home Medications Medication Instructions Recorded Confirmed Last Taken Type Aspirin EC 325 mg PO QDAY #30 tablet 07/18/18 Unknown Rx AtorvaSTATin [Lipitor] 40 mg PO QHS #30 tablet 07/18/18 Unknown Rx B Complex 11/Folic/C/Biot/Zinc 1 each PO DAILY #30 tablet 07/18/18 Unknown Rx [Dialyvite with Zinc Tablet] Ergocalciferol (Vitamin D2) 50,000 unit PO QWEEK #5 capsule 07/18/18 Unknown Rx [Drisdol] Famotidine [Pepcid] 20 mg PO QDAY #30 tablet 07/18/18 Unknown Rx Furosemide [Lasix TAB] 40 mg PO QDAY #30 tablet 07/18/18 Unknown Rx Gabapentin [Neurontin] 100 mg PO BID #60 capsule 07/18/18 Unknown Rx Metoprolol [Lopressor TAB] 25 mg PO BID #60 tablet 07/18/18 Unknown Rx Sevelamer Carbonate [Renvela] 2,400 mg PO AC #180 tablet 07/18/18 Unknown Rx hydrALAZINE [Apresoline TAB] 50 mg PO Q8HR #90 tablet 07/18/18 Unknown Rx hydrOXYzine HCL [Atarax] 25 mg PO Q6H PRN #30 tablet 07/18/18 Unknown Rx HYDROcodone/APAP 5-325 [[place] 1 each PO Q6HR PRN #14 tablet 07/24/18 Unknown Rx 5/325] ED Review of Systems ROS: Stated complaint: WEAKNESS/FALL Other details as noted in HPI Comment: All other systems reviewed and negative Constitutional: denies: chills Eyes: denies: eye pain ENT: denies: ear pain Respiratory: denies: cough Cardiovascular: denies: chest pain Endocrine: denies: flushing Gastrointestinal: denies: nausea Genitourinary: denies: urgency Musculoskeletal: denies: back pain Skin: denies: rash Neurological: weakness Physical Exam - Physical Exam Vital Signs: Vital Signs 07/30/18 07/30/18 07/30/18 14:03 15:31 17:50 Temperature 98.6 F Pulse Rate 83 84 80 Respiratory 16 16 16 Rate Blood Pressure 140/85 Blood Pressure 147/90 155/91 [Right] O2 Sat by Pulse 100 100 100 Oximetry Physical Exam: Physical Exam: - General Limitations: No Limitations General appearance: alert, in no apparent distress. - Head Head exam: Present: atraumatic, normocephalic - Eye Eye exam: Present: normal appearance - ENT ENT exam: Present: mucous membranes moist - Neck Neck exam: Present: normal inspection - Respiratory Respiratory exam: Present: normal lung sounds bilaterally. Absent: respiratory distress - Cardiovascular Cardiovascular Exam: Present: normal rhythm. Absent: systolic murmur, diastolic murmur, rubs, gallop - GI/Abdominal GI/Abdominal exam: Present: soft, normal bowel sounds - Extremities Exam Extremities exam: Present: normal inspection, left hemiparesis - Back Exam Back exam: Present: normal inspection - Neurological Exam Neurological exam: Present: alert, oriented X3 - Psychiatric Psychiatric exam: normal affect and mood - Skin Skin exam: Present: warm, dry, intact, normal color. Absent: rash ED Course Vital Signs 07/30/18 07/30/18 07/30/18 14:03 15:31 17:50 Temperature 98.6 F Pulse Rate 83 84 80 Respiratory 16 16 16 Rate Blood Pressure 140/85 Blood Pressure 147/90 155/91 [Right] O2 Sat by Pulse 100 100 100 Oximetry ED Medical Decision Making - Lab Data Result diagrams: 07/30/18 14:47 07/30/18 14:47 Critical care attestation.: If time is entered above; I have spent that time in minutes in the direct care o f this critically ill patient, excluding procedure time. ED Disposition Clinical Impression: Acute back pain Qualifiers: Back pain location: low back pain Back pain laterality: bilateral Sciatica presence: without sciatica Qualified Code(s): M54.5 - Low back pain Fall Qualifiers: Encounter type: initial encounter Qualified Code(s): W19.XXXA - Unspecified fall, initial encounter Disposition: DC- TO HOME OR SELFCARE Is pt being admited?: No Does the pt Need Aspirin: No Condition: Stable Instructions: Fall Prevention for Older Adults (ED), Low Back Strain (ED) Referrals: WILL RAO MD [Primary Care Provider] - 3-5 Days
== END 2018-07-30 19:01 | disposition home or self-care (01) ==
LOC: ED 13:41
DX: M54.5 Low back pain (principal); I25.2 Old myocardial infarction; E11.22 Type 2 diabetes mellitus with diabetic chronic kidney disease; I13.2 Hypertensive heart and chronic kidney disease with heart failure and with stage 5 chronic kidney disease, or end stage renal disease; I50.9 Heart failure, unspecified; N18.6 End stage renal disease; Z99.2 Dependence on renal dialysis
CPT/HCPCS: 36415; 71045; 72100; 80053; 85025; 85610; 85730; 93005; 93010; 99284; G0480; 80320

== ENCOUNTER 2018-12-27 19:45 | Inpatient (IN) | payer MEDICARE ==
--- NOTE | 2018-12-27 20:03 | Emergency Department Report ---
ED Chest Pain HPI - General Stated Complaint: CHEST PAIN/AMS Time Seen by Provider: 12/27/18 19:58 Source: patient, EMS Mode of arrival: Stretcher Limitations: No Limitations - History of Present Illness Initial Comments: Patient is a 63-year-old male that presents emergency room with complaints of chest pain shortness of breath. Patient states that his chest pain started earlier this morning. Patient states his chest pain is in the center of his chest and is nonradiating. Patient states his chest pain is severe. Patient states he feels a little bit better after the treatment from EMS. Patient brought in by EMS. EMS report received. EMS states the patient has altered mental status as well as increased confusion and complaints of chest pain shortness of breath. EMS gave the patient a breathing treatment. EMS also gave the patient 325 aspirin. MD Complaint: chest pain -: Sudden Onset: during rest Pain Location: substernal, left chest Pain Radiation: none Severity: severe Severity scale (0 -10): 8 Quality: sharp Consistency: constant Improves With: rest Worsens With: exertion re: dyspnea. denies: nausea, vomting, diaphoresis, sense of impending doom Other Symptoms: cough. denies: fever, syncope, rash, acid taste in mouth, leg s welling, palpitations, burping Treatments Prior to Arrival: aspirin, oxygen, other Aspirin use within the Past 7 Days: (1) Yes - Related Data On Oral Contraceptives: No Previous Rx's Medication Instructions Recorded Last Taken Type Aspirin EC 325 mg PO QDAY #30 tablet 07/18/18 Unknown Rx AtorvaSTATin [Lipitor] 40 mg PO QHS #30 tablet 07/18/18 Unknown Rx B Complex 11/Folic/C/Biot/Zinc 1 each PO DAILY #30 tablet 07/18/18 Unknown Rx [Dialyvite with Zinc Tablet] Ergocalciferol (Vitamin D2) 50,000 unit PO QWEEK #5 capsule 07/18/18 Unknown Rx [Drisdol] Famotidine [Pepcid] 20 mg PO QDAY #30 tablet 07/18/18 Unknown Rx Furosemide [Lasix TAB] 40 mg PO QDAY #30 tablet 07/18/18 Unknown Rx Gabapentin 100 mg PO BID #60 capsule 07/18/18 Unknown Rx Metoprolol [Lopressor TAB] 25 mg PO BID #60 tablet 07/18/18 Unknown Rx Sevelamer Carbonate [Renvela] 2,400 mg PO AC #180 tablet 07/18/18 Unknown Rx hydrALAZINE [Apresoline TAB] 50 mg PO Q8HR #90 tablet 07/18/18 Unknown Rx hydrOXYzine HCL [Atarax] 25 mg PO Q6H PRN #30 tablet 07/18/18 Unknown Rx HYDROcodone/APAP 5-325 [[place] 1 each PO Q6HR PRN #14 tablet 07/24/18 Unknown Rx 5/325] Allergies Allergy/AdvReac Type Severity Reaction Status Date / Time No Known Allergies Allergy Verified 02/28/17 00:21 Heart Score - HEART Score History: Moderately suspicious EKG: Non-specific Age: > 65 Risk factors: > 3 risk factors or hx of atherosclerotic disease Troponin: 1-3x normal limit HEART Score: 7 ED Review of Systems ROS: Stated complaint: CHEST PAIN/AMS Other details as noted in HPI Constitutional: denies: chills, fever Eyes: denies: eye pain, eye discharge, vision change ENT: denies: ear pain, throat pain Respiratory: cough, shortness of breath. denies: wheezing Cardiovascular: chest pain, dyspnea on exertion. denies: palpitations Endocrine: no symptoms reported Gastrointestinal: denies: abdominal pain, nausea, diarrhea Genitourinary: denies: urgency, dysuria Musculoskeletal: denies: back pain, joint swelling, arthralgia Skin: denies: rash, lesions Neurological: denies: headache, weakness, paresthesias Psychiatric: denies: anxiety, depression Hematological/Lymphatic: denies: easy bleeding, easy bruising ED Past Medical Hx - Past Medical History Previous Medical History?: Yes Hx Hypertension: Yes Hx CVA: Yes (x2 (residual right sided weakness)) Hx Heart Attack/AMI: Yes Hx Congestive Heart Failure: Yes Hx Diabetes: Yes Hx Deep Vein Thrombosis: No Hx Liver Disease: No Hx Renal Disease: No Hx Arthritis: No Hx Seizures: Yes (last seizure was in 2018 pt is no longer on Meds ) Hx Kidney Stones: No Hx Asthma: No Hx COPD: No Hx Dementia: No Hx HIV: No Additional medical history: Cardiac Stents, dialysis M-W-F - Surgical History Past Surgical History?: Yes Hx Coronary Stent: Yes Hx Pacemaker: No Hx Internal Defibrillator: No Additional Surgical History: Cardiac stents 3 months ago 08/22? av graft to left arm - Family History Family history: no significant - Social History Smoking Status: Never Smoker Substance Use Type: None - Medications Home Medications: Home Medications Medication Instructions Recorded Confirmed Last Taken Type Aspirin EC 325 mg PO QDAY #30 tablet 07/18/18 Unknown Rx AtorvaSTATin [Lipitor] 40 mg PO QHS #30 tablet 07/18/18 Unknown Rx B Complex 11/Folic/C/Biot/Zinc 1 each PO DAILY #30 tablet 07/18/18 Unknown Rx [Dialyvite with Zinc Tablet] Ergocalciferol (Vitamin D2) 50,000 unit PO QWEEK #5 capsule 07/18/18 Unknown Rx [Drisdol] Famotidine [Pepcid] 20 mg PO QDAY #30 tablet 07/18/18 Unknown Rx Furosemide [Lasix TAB] 40 mg PO QDAY #30 tablet 07/18/18 Unknown Rx Gabapentin 100 mg PO BID #60 capsule 07/18/18 Unknown Rx Metoprolol [Lopressor TAB] 25 mg PO BID #60 tablet 07/18/18 Unknown Rx Sevelamer Carbonate [Renvela] 2,400 mg PO AC #180 tablet 07/18/18 Unknown Rx hydrALAZINE [Apresoline TAB] 50 mg PO Q8HR #90 tablet 07/18/18 Unknown Rx hydrOXYzine HCL [Atarax] 25 mg PO Q6H PRN #30 tablet 07/18/18 Unknown Rx HYDROcodone/APAP 5-325 [[place] 1 each PO Q6HR PRN #14 tablet 07/24/18 Unknown Rx 5/325] ED Physical Exam - General Limitations: Physical Limitation General appearance: alert, in no apparent distress - Head Head exam: Present: atraumatic, normocephalic - Eye Eye exam: Present: normal appearance - ENT ENT exam: Present: mucous membranes moist - Neck Neck exam: Present: normal inspection - Respiratory Respiratory exam: Present: respiratory distress, rhonchi. Absent: wheezes - Cardiovascular Cardiovascular Exam: Present: regular rate, normal rhythm. Absent: systolic murmur, diastolic murmur, rubs, gallop - GI/Abdominal GI/Abdominal exam: Present: soft, normal bowel sounds. Absent: distended, tenderness, guarding - Rectal Rectal exam: Present: deferred - Extremities Exam Extremities exam: Present: normal inspection - Back Exam Back exam: Present: normal inspection - Neurological Exam Neurological exam: Present: alert, oriented X3 - Psychiatric Psychiatric exam: Present: normal affect, normal mood - Skin Skin exam: Present: warm, dry, intact, normal color. Absent: rash ED Course Vital Signs 12/27/18 12/27/18 12/27/18 19:50 20:02 20:15 Temperature 97.8 F Pulse Rate 98 H 98 H 97 H Respiratory 24 17 Rate Blood Pressure 175/96 178/95 O2 Sat by Pulse 99 96 Oximetry 12/27/18 12/27/18 12/27/18 20:31 20:45 21:00 Temperature Pulse Rate 93 H 92 H 89 Respiratory 20 15 14 Rate Blood Pressure 178/91 166/89 162/86 O2 Sat by Pulse 96 94 96 Oximetry 12/27/18 12/27/18 21:15 21:30 Temperature Pulse Rate 87 86 Respiratory 15 17 Rate Blood Pressure 162/86 156/82 O2 Sat by Pulse 97 97 Oximetry - Reevaluation(s) Reevaluation #1: Initial evaluation done. Report received from EMS. 12/27/18 19:56 Reevaluation #2: Patient states he is feeling better. Patient will be admitted to the hospitalist service. I discussed all results with patient. Patient agrees with plan of care and admission. 12/27/18 21:39 - Consultations Consultation #1: Hospitalist consult for admission. Hospitalist admit patient. bridge placed. 12/27/18 21:39 LAURA score - Laura Score Age > 65: (0) No Aspirin use within the Past 7 Days: (0) No 3 or more CAD Risk Factors: (1) Yes 2 or more Angina events in past 24 hrs: (1) Yes Known CAD with more than 50% Stenosis: (1) Yes Elevated Cardiac Markers: (0) No ST Deviation Greater than 0.5mm: (0) No LAURA Score: 3 ED Medical Decision Making - Lab Data Result diagrams: 12/27/18 20:43 12/27/18 20:43 - EKG Data -: EKG Interpreted by Me EKG shows normal: sinus rhythm, axis, intervals, QRS complexes, ST-T waves Rate: normal - Radiology Data Radiology results: report reviewed, image reviewed CHEST 1 VIEW 12/27/2018 8:03 PM INDICATION / CLINICAL INFORMATION: sob. cp. COMPARISON: Chest x-ray on 07/30/2018. FINDINGS: SUPPORT DEVICES: None. HEART / MEDIASTINUM: No significant abnormality. LUNGS / PLEURA: There are patchy hazy parenchymal opacities in the right mid and lower lung. The left lung is grossly clear. No pneumothorax. ADDITIONAL FINDINGS: No significant additional findings. IMPRESSION: 1. Patchy right mid and lower lung parenchymal opacities probably reflecting developing infectious or inflammatory process. - Medical Decision Making Patient is a 63-year-old male that presents emergency room with complaints of chest pain shortness of breath. Patient brought in by EMS. EMS found the patient be wheezing and hypoxia. Patient given a breathing treatment and oxygen in route. Patient's oxygenation improved with 2 L. Patient not wheezing on initial evaluation but has rhonchi. Patient found to have pneumonia. Patient found to have an elevated BNP and elevated troponin most like secondary to end- stage renal disease. Patient given antibiotics and steroids in the ER. Patient admitted to the hospitalist service. - Differential Diagnosis pneumonia. Cough. Wheezing. Shortness of breath. Chest pain. CHF Critical Care Time: Yes Critical care time in (mins) excluding proc time.: 35 Critical care attestation.: If time is entered above; I have spent that time in minutes in the direct care of this critically ill patient, excluding procedure time. Critical Care Time: 35 minutes ED Disposition Clinical Impression: SOB (shortness of breath), Respiratory distress, Elevated troponin, Hypoxia, End stage renal disease on dialysis, Hyperkalemia Chest pain Qualifiers: Chest pain type: unspecified Qualified Code(s): R07.9 - Chest pain, unspecified Pneumonia Qualifiers: Pneumonia type: due to unspecified organism Laterality: right Lung location: lower lobe of lung Qualified Code(s): J18.9 - Pneumonia, unspecified organism CHF exacerbation Qualifiers: Heart failure type: unspecified Qualified Code(s): I50.9 - Heart failure, unspecified Disposition: 09 OP ADMIT IP TO THIS HOSP Is pt being admited?: Yes Does the pt Need Aspirin: No Condition: Critical Time of Disposition: 21:38
--- NOTE | 2018-12-27 20:24 | XRay Report ---
CHEST 1 VIEW 12/27/2018 8:03 PM INDICATION / CLINICAL INFORMATION: sob. cp. COMPARISON: Chest x-ray on 07/30/2018. FINDINGS: SUPPORT DEVICES: None. HEART / MEDIASTINUM: No significant abnormality. LUNGS / PLEURA: There are patchy hazy parenchymal opacities in the right mid and lower lung. The left lung is grossly clear. No pneumothorax. ADDITIONAL FINDINGS: No significant additional findings. IMPRESSION: 1. Patchy right mid and lower lung parenchymal opacities probably reflecting developing infectious or inflammatory process. Signer Name: Rashawn Rowan MD Signed: 12/27/2018 8:20 PM Workstation Name: [id number]
[2018-12-27 21:00] LABS: Basophils # (Auto) 0.1 K/mm3 (0.0-0.1); Eosinophils # (Auto) 0.2 K/mm3 (0.0-0.4); Eosinophils % (Auto) 2.7 % (0.0-4.3); Hematocrit 36.2 % (35.5-45.6); Hemoglobin 11.5 gm/dl (11.8-15.2); Lymphocytes % (Auto) 12.4 % (13.4-35.0); Mean Corpuscular HGB Conc 32 % (32-34); Mean Corpuscular Volume 106 fl (84-94); Monocytes # (Auto) 0.9 K/mm3 (0.0-0.8); Monocytes % (Auto) 10.5 % (0.0-7.3); Platelet Count 177 K/mm3 (140-440); Red Cell Distribution Width 16.4 % (13.2-15.2)
[2018-12-27] MEDS ORDERED: CEFEPIME/NS 2 GM/100 ML 2 GM/100 ML BAG IV ONE (21:05)
[2018-12-27] MEDS ORDERED: methylPREDNISolone Sod Succinate 125 MG/2 ML INJ IV ONE (21:05)
[2018-12-27 21:22] LABS: Albumin 4.1 g/dL (3.9-5); Calcium 9.8 mg/dL (8.4-10.2)
[2018-12-27 21:33] LABS: Chol/HDL Ratio 1.64 %
[2018-12-27] MEDS ORDERED: MAGNESIUM HYDROXIDE (MOM) ORAL LIQD UDC PO PRN (22:27)
[2018-12-27] MEDS ORDERED: DEXTROSE 50% IN WATER (25GM) 50 ML SYRINGE IV PRN (22:27)
[2018-12-27] MEDS ORDERED: ONDANSETRON 4 MG/2 ML INJ IV PRN (22:27)
[2018-12-27] MEDS ORDERED: MORPHINE 2 MG/1 ML INJ IV PRN (22:27)
[2018-12-27] MEDS ORDERED: ACETAMINOPHEN 325 MG TAB PO PRN (22:27)
--- NOTE | 2018-12-27 23:19 | History and Physical Report ---
History of Present Illness Date of examination: 12/27/18 Date of admission: 12/27/18 22:26 Chief complaint: Chest pain Shortness of breath History of present illness: Patient is a 63-year-old male who presents to the emergency room today complaining of chest pain or shortness of breath. Chest pain or shortness of breath started earlier this morning. Pain was localized to the midsternal area and there was no radiation. There is no known relieving or exacerbating factor. Upon arrival of the EMS patient was found to be slightly confused and had complained of shortness of breath and chest pain. He was given aspirin and some nebulizer treatment with some improvement. His chest pain is said to be sharp and on a scale of 10 was about 8/10 in severity. Patient has known history of end-stage renal disease and has been on dialysis Wednesdays and Fridays. Work-up in the emergency room indicates findings consistent with possible pneumonia, pulmonary edema and hypoxia. Past History Past Medical History: CAD (History of cardiac stent placement in the past), ESRD (On dialysis Wednesdays and Fridays), heart failure, seizures, stroke (With residual right-sided weakness) Past Surgical History: PTCA, Other (AV fistula placement on the left arm) Social history: smoking (Smokes tobacco occasionally), alcohol abuse (Drinks alcohol occasionally) Family history: cancer (Father had unknown cancer), diabetes (Mother has diabetes mellitus), other (Mother had end-stage renal disease on dialysis) Medications and Allergies Allergies Allergy/AdvReac Type Severity Reaction Status Date / Time No Known Allergies Allergy Verified 02/28/17 00:21 Home Medications Medication Instructions Recorded Confirmed Last Taken Type Aspirin EC 325 mg PO QDAY #30 tablet 07/18/18 Unknown Rx AtorvaSTATin [Lipitor] 40 mg PO QHS #30 tablet 07/18/18 Unknown Rx B Complex 11/Folic/C/Biot/Zinc 1 each PO DAILY #30 tablet 07/18/18 Unknown Rx [Dialyvite with Zinc Tablet] Ergocalciferol (Vitamin D2) 50,000 unit PO QWEEK #5 capsule 07/18/18 Unknown Rx [Drisdol] Famotidine [Pepcid] 20 mg PO QDAY #30 tablet 07/18/18 Unknown Rx Furosemide [Lasix TAB] 40 mg PO QDAY #30 tablet 07/18/18 Unknown Rx Gabapentin 100 mg PO BID #60 capsule 07/18/18 Unknown Rx Metoprolol [Lopressor TAB] 25 mg PO BID #60 tablet 07/18/18 Unknown Rx Sevelamer Carbonate [Renvela] 2,400 mg PO AC #180 tablet 07/18/18 Unknown Rx hydrALAZINE [Apresoline TAB] 50 mg PO Q8HR #90 tablet 07/18/18 Unknown Rx hydrOXYzine HCL [Atarax] 25 mg PO Q6H PRN #30 tablet 07/18/18 Unknown Rx HYDROcodone/APAP 5-325 [[place] 1 each PO Q6HR PRN #14 tablet 07/24/18 Unknown Rx 5/325] Active Meds: Active Medications Acetaminophen (Tylenol) 650 mg PO Q4H PRN PRN Reason: Pain MILD(1-3)/Fever >100.5/SAEED Aspirin (Ecotrin) 325 mg PO QDAY [facility] Dextrose (D50w (25gm) Syringe) 0 ml IV Q30MIN PRN; Protocol PRN Reason: Hypoglycemia Ceftriaxone Sodium (Rocephin/Ns 2 Gm/100 Ml) 2 gm in 100 mls @ 200 mls/hr IV Q24HR [facility]; Protocol Azithromycin 500 mg/ Sodium (Chloride) 250 mls @ 250 mls/hr IV Q24HR [facility]; Protocol Insulin Human Regular (Humulin R) 0 units SUB-Q ACHS [facility]; Protocol Magnesium Hydroxide (Milk Of Magnesia) 30 ml PO Q4H PRN PRN Reason: Constipation Morphine Sulfate (Morphine) 2 mg IV Q5MIN PRN PRN Reason: Chest Pain unrelieved by NTG Ondansetron HCl (Zofran) 4 mg IV Q8H PRN PRN Reason: Nausea And Vomiting Sodium Chloride (Sodium Chloride Flush Syringe 10 Ml) 10 ml IV BID GORDO Sodium Chloride (Sodium Chloride Flush Syringe 10 Ml) 10 ml IV PRN PRN PRN Reason: LINE FLUSH Review of Systems Constitutional: weakness, lethargy Cardiovascular: chest pain, shortness of breath Exam - Constitutional Vitals: Temp Pulse Resp BP Pulse Ox 97.8 F 86 17 156/82 97 12/27/18 19:50 12/27/18 21:30 12/27/18 21:30 12/27/18 21:30 12/27/18 21:30 General appearance: Present: no acute distress, well-nourished - EENT Eyes: Present: PERRL, EOM intact ENT: hearing intact, clear oral mucosa, dentition normal - Neck Neck: Present: supple, normal ROM - Respiratory Respiratory effort: normal Respiratory: bilateral: rales - Cardiovascular Rhythm: regular Heart Sounds: Present: S1 & S2, systolic murmur - Extremities Extremities: no ischemia, pulses intact, pulses symmetrical, No edema, Full ROM Peripheral Pulses: within normal limits - Abdominal General gastrointestinal: Present: soft, non-tender, non-distended - Integumentary Integumentary: Present: clear, warm, dry - Musculoskeletal Musculoskeletal: right sided weakness, other (AV fistula with palpable thrill in the left arm) - Neurologic Neurologic: CNII-XII intact, moves all extremities Results - Labs CBC & Chem 7: 12/27/18 20:43 12/27/18 20:43 Labs: Abnormal lab results 12/27/18 12/27/18 12/27/18 Range/Units 20:43 20:43 20:43 RBC 3.40 L (3.65-5.03) M/mm3 Hgb 11.5 L (11.8-15.2) gm/dl MCV 106 H (84-94) fl MCH 34 H (28-32) pg RDW 16.4 H (13.2-15.2) % Lymph % (Auto) 12.4 L (13.4-35.0) % [place] % (Auto) 10.5 H (0.0-7.3) % Lymph # 1.0 L (1.2-5.4) K/mm3 [place] # 0.9 H (0.0-0.8) K/mm3 Seg Neutrophils % 73.4 H (40.0-70.0) % Potassium 5.6 H (3.6-5.0) mmol/L Carbon Dioxide 19 L (22-30) mmol/L BUN 76 H (9-20) mg/dL Creatinine 9.8 H (0.8-1.5) mg/dL Troponin T 0.042 H (0.00-0.029) ng/mL NT-Pro-B Natriuret Pep 82654 H (0-900) pg/mL HDL Cholesterol 84 H (40-59) mg/dL Assessment and Plan - Patient Problems (1) Chest pain Current Visit: Yes Status: Acute Qualifiers: Chest pain type: unspecified Qualified Code(s): R07.9 - Chest pain, unspecified Plan to address problem: Patient will be admitted to telemetry. Will monitor EKG and also follow serial cardiac enzymes. We will place a consult to cardiology for further evaluation and recommendation. He is placed on daily aspirin, sublingual nitroglycerin and IV morphine as needed (2) CHF exacerbation Current Visit: Yes Status: Acute Qualifiers: Heart failure type: unspecified Qualified Code(s): I50.9 - Heart failure, unspecified Plan to address problem: We will check daily input and output and also monitor daily weight. Patient still makes urine and has been given a dose of IV Lasix. He will be scheduled for dialysis in the a.m. (3) ESRD (end stage renal disease) on dialysis Current Visit: Yes Status: Acute Plan to address problem: Patient gets dialysis Wednesdays and Friday. 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 (4) Hypoxia Current Visit: Yes Status: Acute Plan to address problem: We will keep O2 saturation greater or equal to 92%. Hypoxia but possibly secondary to the pulmonary edema versus underlying pneumonia. (5) Pneumonia Current Visit: Yes Status: Acute Qualifiers: Pneumonia type: due to unspecified organism Laterality: right Lung location: lower lobe of lung Qualified Code(s): J18.9 - Pneumonia, unspecified organism Plan to address problem: He has been placed on empiric IV antibiotics. We await blood culture results. (6) Full code status Current Visit: Yes Status: Acute (7) DVT prophylaxis Current Visit: No Status: Acute Plan to address problem: Patient placed on subcutaneous heparin.
[2018-12-27] MEDS ORDERED: FUROSEMIDE 40 MG/4 ML INJ IV ONE (23:45)
[2018-12-28] MEDS ORDERED: FUROSEMIDE 100 MG/10 ML INJ IV ONE (01:28)
[2018-12-28] MEDS: HEPARIN 5,000 UNIT/1 ML VIAL SUB-Q SCH ×3 (06:47→21:32)
[2018-12-28 08:01] LABS: Hematocrit 34.2 % (35.5-45.6); Hemoglobin 11.3 gm/dl (11.8-15.2); Mean Corpuscular HGB Conc 33 % (32-34); Mean Corpuscular Volume 104 fl (84-94); Platelet Count 177 K/mm3 (140-440)
[2018-12-28 08:07] LABS: INR 1.03 (0.87-1.13)
[2018-12-28 08:08] LABS: Partial Thromboplastin Time 38.1 Sec. (24.2-36.6)
[2018-12-28 08:24] LABS: Calcium 9.8 mg/dL (8.4-10.2)
[2018-12-28 09:18] LABS: Anisocytosis 1+; Basophils % (Manual) 0 % (0.0-1.8); Burr Cells Few; Eosinophils % (Manual) 0 % (0.0-4.3); Poikilocytosis 1+; Total Cells Counted 100
[2018-12-28 09:19] LABS: Platelet Estimate Consistent w Auto; Tear Drop Cells Few
--- NOTE | 2018-12-28 10:29 | Progress Note ---
Assessment and Plan Assessment and plan: 63-year-old man who presented to the ER with shortness of breath and chest pain. Past medical history; end-stage renal disease, history of CVA status post stents, history of CVA with right residual weakness,? CHF, history of seizure disorder which is now in remission, has not had a seizure in since 2018 and is no longer on meds. Chest x-ray; patchy right mid and lower lung parenchymal opacities Echo from 05/29, preserved EF LVH, mild to moderate left ear and mild AR Diagnosis Chest pain, likely due to pneumonia End-stage renal disease Acute hypoxic respiratory failure Pneumonia Hyperkalemia Plan Patient now weaned off oxygen, continue empiric antibiotics Continue dialysis per nephrology, hyperkalemia should resolve with dialysis -Suspect that chest pain is likely due to pneumonia, cardiology input pending Preventative health counseling performed for 17 minutes DVT prophylaxis with heparin History Interval history: Review of systems Constitutional: No fevers, no malaise, no joint pains CVS: No chest pain, no orthopnea, no pedal edema GI: No abdominal pain, no diarrhea, no vomiting, no constipation Respiratory: , no wheezing, cough and sob improved Hospitalist Physical - Physical exam Narrative exam: General.: Appears well, no distress, nontoxic HEENT: Moist mucous membranes, extraocular muscles intact, no lymphadenopathy Neck: supple Cardiac: S1-S2 heard Lungs: rales on R Abdomen: soft , nontender, nondistended, bowel sounds positive Extremities: no edema clubbing or cyanosis Skin: no rash or lesions Neurologic: no gross focal deficits Psych: calm, and cooperative - Constitutional Vitals: Temp Pulse Resp BP Pulse Ox 98.2 F 90 18 196/106 94 12/28/18 08:26 12/28/18 03:35 12/28/18 08:26 12/28/18 08:26 12/28/18 08:45 General appearance: Present: no acute distress, well-nourished Results - Labs CBC & Chem 7: 12/28/18 07:19 12/28/18 07:19 Labs: Laboratory Last Values WBC 4.8 K/mm3 (4.5-11.0) 12/28/18 07:19 RBC 3.30 M/mm3 (3.65-5.03) L 12/28/18 07:19 Hgb 11.3 gm/dl (11.8-15.2) L 12/28/18 07:19 Hct 34.2 % (35.5-45.6) L 12/28/18 07:19 MCV 104 fl (84-94) H 12/28/18 07:19 MCH 34 pg (28-32) H 12/28/18 07:19 MCHC 33 % (32-34) 12/28/18 07: RDW 16.0 % (13.2-15.2) H 12/28/18 07:19 Plt Count 177 K/mm3 (140-440) 12/28/18 07:19 Lymph % (Auto) 12.4 % (13.4-35.0) L 12/27/18 20:43 [place] % (Auto) 10.5 % (0.0-7.3) H 12/27/18 20:43 Eos % (Auto) 2.7 % (0.0-4.3) 12/27/18 20:43 Baso % (Auto) 1.0 % (0.0-1.8) 12/27/18 20:43 Lymph # 1.0 K/mm3 (1.2-5.4) L 12/27/18 20:43 [place] # 0.9 K/mm3 (0.0-0.8) H 12/27/18 20:43 Eos # 0.2 K/mm3 (0.0-0.4) 12/27/18 20:43 Baso # 0.1 K/mm3 (0.0-0.1) 12/27/18 20:43 Add Manual Diff Complete 12/28/18 07:19 Total Counted 100 12/28/18 07:19 Seg Neutrophils % Cyanide Pot Tender 12/28/18 07:19 Seg Neuts % (Manual) 96.0 % (40.0-70.0) H 12/28/18 07:19 Band Neutrophils % 0 % 12/28/18 07:19 Lymphocytes % (Manual) 3.0 % (13.4-35.0) L 12/28/18 07:19 Reactive Lymphs % (Man) 0 % 12/28/18 07:19 Monocytes % (Manual) 1.0 % (0.0-7.3) 12/28/18 07:19 Eosinophils % (Manual) 0 % (0.0-4.3) 12/28/18 07:19 Basophils % (Manual) 0 % (0.0-1.8) 12/28/18 07:19 Metamyelocytes % 0 % 12/28/18 07:19 Myelocytes % 0 % 12/28/18 07:19 Promyelocytes % 0 % 12/28/18 07:19 Blast Cells % 0 % 12/28/18 07:19 Nucleated RBC % Not Reportable 12/28/18 07:19 Seg Neutrophils # 6.0 K/mm3 (1.8-7.7) 12/27/18 20:43 Seg Neutrophils # Man 4.6 K/mm3 (1.8-7.7) 12/28/18 07:19 Band Neutrophils # 0.0 K/mm3 12/28/18 07:19 Lymphocytes # (Manual) 0.1 K/mm3 (1.2-5.4) L 12/28/18 07:19 Abs React Lymphs (Man) 0.0 K/mm3 12/28/18 07:19 Monocytes # (Manual) 0.0 K/mm3 (0.0-0.8) 12/28/18 07:19 Eosinophils # (Manual) 0.0 K/mm3 (0.0-0.4) 12/28/18 07:19 Basophils # (Manual) 0.0 K/mm3 (0.0-0.1) 12/28/18 07:19 Metamyelocytes # 0.0 K/mm3 12/28/18 07:19 Myelocytes # 0.0 K/mm3 12/28/18 07:19 Promyelocytes # 0.0 K/mm3 12/28/18 07:19 Blast Cells # 0.0 K/mm3 12/28/18 07:19 WBC Morphology Not Reportable 12/28/18 07:19 Hypersegmented Neuts Not Reportable 12/28/18 07:19 Hyposegmented Neuts Not Reportable 12/28/18 07:19 Hypogranular Neuts Not Reportable 12/28/18 07:19 Smudge Cells Not Reportable 12/28/18 07:19 Toxic Granulation Not Reportable 12/28/18 07:19 Toxic Vacuolation Not Reportable 12/28/18 07:19 Dohle Bodies Not Reportable 12/28/18 07:19 Pelger-Huet Anomaly Not Reportable 12/28/18 07:19 Libby Rods Not Reportable 12/28/18 07:19 Platelet Estimate Consistent w auto 12/28/18 07:19 Clumped Platelets Not Reportable 12/28/18 07:19 Plt Clumps, EDTA Not Reportable 12/28/18 07:19 Large Platelets Not Reportable 12/28/18 07:19 Giant Platelets Not Reportable 12/28/18 07:19 Platelet Satelliting Not Reportable 12/28/18 07:19 Plt Morphology Comment Not Reportable 12/28/18 07:19 RBC Morphology Not Reportable 12/28/18 07:19 Dimorphic RBCs Not Reportable 12/28/18 07:19 Polychromasia Not Reportable 12/28/18 07:19 Hypochromasia Not Reportable 12/28/18 07:19 Poikilocytosis 1+ 12/28/18 07:19 Anisocytosis 1+ 12/28/18 07:19 Microcytosis Not Reportable 12/28/18 07:19 Macrocytosis Not Reportable 12/28/18 07:19 Spherocytes Not Reportable 12/28/18 07:19 Pappenheimer Bodies Not Reportable 12/28/18 07:19 Sickle Cells Not Reportable 12/28/18 07:19 Target Cells Not Reportable 12/28/18 07:19 Tear Drop Cells Few 12/28/18 07:19 Ovalocytes Not Reportable 12/28/18 07:19 Helmet Cells Not Reportable 12/28/18 07:19 Ordonez-Thornhill Bodies Not Reportable 12/28/18 07:19 [place] Rings Not Reportable 12/28/18 07:19 Arjun Cells Few 12/28/18 07:19 Bite Cells Not Reportable 12/28/18 07:19 Crenated Cell Not Reportable 12/28/18 07:19 Elliptocytes Few 12/28/18 07:19 Acanthocytes (Spur) Not Reportable 12/28/18 07:19 Rouleaux Not Reportable 12/28/18 07:19 Hemoglobin C Crystals Not Reportable 12/28/18 07:19 Schistocytes Not Reportable 12/28/18 07:19 Malaria parasites Not Reportable 12/28/18 07:19 Ted Bodies Not Reportable 12/28/18 07:19 Hem Pathologist Commnt No 12/28/18 07:19 PT 13.4 Sec. (12.2-14.9) 12/28/18 07:19 INR 1.03 (0.87-1.13) 12/28/18 07:19 APTT 38.1 Sec. (24.2-36.6) H 12/28/18 07:19 Sodium 139 mmol/L (137-145) 12/28/18 07:19 Potassium 6.4 mmol/L (3.6-5.0) H* 12/28/18 07:19 Chloride 98.6 mmol/L (98-107) 12/28/18 07:19 Carbon Dioxide 16 mmol/L (22-30) L 12/28/18 07:19 Anion Gap 31 mmol/L 12/28/18 07:19 BUN 84 mg/dL (9-20) H 12/28/18 07:19 Creatinine 10.8 mg/dL (0.8-1.5) H 12/28/18 07:19 Estimated GFR 6 ml/min 12/28/18 07:19 BUN/Creatinine Ratio 8 % 12/28/18 07:19 Glucose 208 mg/dL (75-100) H 12/28/18 07:19 POC Glucose 198 (70-105) H 12/28/18 08:35 Lactic Acid 0.90 mmol/L (0.7-2.0) 12/27/18 21:11 Calcium 9.8 mg/dL (8.4-10.2) 12/28/18 07:19 Total Bilirubin 0.40 mg/dL (0.1-1.2) 12/27/18 20:43 AST 13 units/L (5-40) 12/27/18 20:43 ALT 9 units/L (7-56) 12/27/18 20:43 Alkaline Phosphatase 52 units/L (35-129) 12/27/18 20:43 Troponin T 0.039 ng/mL (0.00-0.029) H 12/28/18 07:19 NT-Pro-B Natriuret Pep 09061 pg/mL (0-900) H 12/27/18 20:43 Total Protein 8.0 g/dL (6.3-8.2) 12/27/18 20:43 Albumin 4.1 g/dL (3.9-5) 12/27/18 20:43 Albumin/Globulin Ratio 1.1 % 12/27/18 20:43 Triglycerides 43 mg/dL (2-149) 12/27/18 20:43 Cholesterol 138 mg/dL (50-199) 12/27/18 20:43 LDL Cholesterol Direct 55 mg/dL (50-130) 12/27/18 20:43 HDL Cholesterol 84 mg/dL (40-59) H 12/27/18 20:43 Cholesterol/HDL Ratio 1.64 % 12/27/18 20:43 Active Medications - Current Medications Current Medications: Generic Name Dose Route Start Last Admin Trade Name Freq PRN Reason Stop Dose Admin Acetaminophen 650 mg 12/27/18 22:27 Tylenol PO Q4H PRN Pain MILD(1-3)/Fever >100.5/SAEED Aspirin 325 mg 12/28/18 10:00 Ecotrin PO QDAY [facility] Dextrose 0 ml 12/27/18 22:27 D50w (25gm) Syringe IV Q30MIN PRN Hypoglycemia Protocol Heparin Sodium (Porcine) 5,000 unit 12/28/18 06:00 12/28/18 06:47 Heparin SUB-Q 5,000 unit Q8HR [facility] Administration Heparin Sodium (Porcine) 5,000 unit 12/28/18 14:00 Heparin SUB-Q Q8HR [facility] Ceftriaxone Sodium 2 gm in 100 mls @ 200 mls/hr 12/28/18 10:00 Rocephin/Ns 2 Gm/100 Ml IV Q24HR [facility] Protocol Azithromycin 500 mg/ Sodium 250 mls @ 250 mls/hr 12/28/18 10:00 Chloride IV Q24HR [facility] Protocol Insulin Human Regular 0 units 12/28/18 07:30 Humulin R SUB-Q ACHS [facility] Protocol Magnesium Hydroxide 30 ml 12/27/18 22:27 Milk Of Magnesia PO Q4H PRN Constipation Morphine Sulfate 2 mg 12/27/18 22:27 Morphine IV Q5MIN PRN Chest Pain unrelieved by NTG Ondansetron HCl 4 mg 12/27/18 22:27 Zofran IV Q8H PRN Nausea And Vomiting Sodium Chloride 10 ml 12/28/18 10:00 Sodium Chloride Flush Syringe 10 Ml IV BID [facility] Sodium Chloride 10 ml 12/27/18 22:27 Sodium Chloride Flush Syringe 10 Ml IV PRN PRN LINE FLUSH
[2018-12-28] MEDS: cefTRIAXone/NS 2 GM/100 ML 2 GM/100 ML BAG IV SCH (11:00)
[2018-12-28] MEDS: AZITHROMYCIN 500 MG in SODIUM CHLORIDE 0.9% 250ML 250 ML IV SCH (11:02)
[2018-12-28] MEDS: ASPIRIN EC 325 MG TAB PO SCH (11:02)
[2018-12-28] MEDS: INSULIN REGULAR, HUMAN 100 UNITS/1 ML SUB-Q SCH ×4 (11:19→21:41)
--- NOTE | 2018-12-28 11:19 | Consultation ---
History of Present Illness - Reason for Consult Consult date: 12/29/18 end stage renal disease Requesting physician: LUCIA RAMIREZ - History of Present Illness 63-year-old male who is well-known to me with a history of end-stage renal disease on hemodialysis on a Friday, Friday and Friday schedule at [facility] dialysis clinic. Patient went for his routine dialysis on Friday and did well. He says he was doing well till Friday when he developed shortness of breath and chest pain. Pain was in the retrosternal area, nonradiating and severe. No known aggravating or relieving factors. He had cough which was unproductive. He was nauseated but denies vomiting. Admits to dizziness but no palpitations or diaphoresis. Shortness of breath worsened and so they called the EMS. Patient was found confused by emergency medical medicine technicians, he was given aspirin and placed on breathing treatment and brought to the hospital for evaluation. Chest X-ray shows pulmonary edema Past History Past Medical History: CAD (History of cardiac stent placement in the past), ESRD (On dialysis Wednesdays and Fridays), heart failure, seizures, stroke (With residual right-sided weakness) Past Surgical History: PTCA, Other (AV fistula placement on the left arm) Social history: smoking (Smokes tobacco occasionally), alcohol abuse (Drinks alcohol occasionally) Family history: cancer (Father had unknown cancer), diabetes (Mother has diab etes mellitus), other (Mother had end-stage renal disease on dialysis) Medications and Allergies Allergies Allergy/AdvReac Type Severity Reaction Status Date / Time No Known Allergies Allergy Verified 02/28/17 00:21 Home Medications Medication Instructions Recorded Confirmed Last Taken Type Aspirin EC 325 mg PO QDAY #30 tablet 07/18/18 12/29/18 Unknown Rx AtorvaSTATin [Lipitor] 40 mg PO QHS #30 tablet 07/18/18 12/29/18 Unknown Rx B Complex 11/Folic/C/Biot/Zinc 1 each PO DAILY #30 tablet 07/18/18 12/29/18 Unknown Rx [Dialyvite with Zinc Tablet] Famotidine [Pepcid] 20 mg PO QDAY #30 tablet 07/18/18 12/29/18 Unknown Rx Furosemide [Lasix TAB] 40 mg PO QDAY #30 tablet 07/18/18 12/29/18 Unknown Rx Gabapentin 100 mg PO BID #60 capsule 07/18/18 12/29/18 Unknown Rx Metoprolol [Lopressor TAB] 25 mg PO BID #60 tablet 07/18/18 12/29/18 Unknown Rx hydrALAZINE [Apresoline TAB] 50 mg PO Q8HR #90 tablet 07/18/18 12/29/18 Unknown Rx HYDROcodone/APAP 5-325 [[place] 1 each PO Q6HR PRN #14 tablet 07/24/18 12/29/18 Unknown Rx 5/325] hydrOXYzine HCL [Atarax] 25 mg PO Q8HR PRN 12/29/18 12/29/18 Unknown History Active Meds: Active Medications Acetaminophen (Tylenol) 650 mg PO Q4H PRN PRN Reason: Pain MILD(1-3)/Fever >100.5/SAEED Aspirin (Ecotrin) 325 mg PO QDAY [facility] Last Admin: 12/28/18 11:02 Dose: 325 mg Documented by: Dextrose (D50w (25gm) Syringe) 0 ml IV Q30MIN PRN; Protocol PRN Reason: Hypoglycemia Epoetin Will (Procrit) 10,000 unit IV JEANINE PRN PRN Reason: hemodialysis Heparin Sodium (Porcine) (Heparin) 5,000 unit SUB-Q Q8HR [facility] Last Admin: 12/28/18 06:47 Dose: 5,000 unit Documented by: Ceftriaxone Sodium (Rocephin/Ns 2 Gm/100 Ml) 2 gm in 100 mls @ 200 mls/hr IV Q24HR [facility]; Protocol Last Admin: 12/28/18 11:00 Dose: 200 mls/hr Documented by: Azithromycin 500 mg/ Sodium (Chloride) 250 mls @ 250 mls/hr IV Q24HR [facility]; Protocol Last Admin: 12/28/18 11:02 Dose: 250 mls/hr Documented by: Sodium Chloride (Nacl 0.9%) 100 mls @ 999 mls/hr IV JEANINE PRN PRN Reason: Hypotension Insulin Human Regular (Humulin R) 0 units SUB-Q ACHS [facility]; Protocol Magnesium Hydroxide (Milk Of Magnesia) 30 ml PO Q4H PRN PRN Reason: Constipation Morphine Sulfate (Morphine) 2 mg IV Q5MIN PRN PRN Reason: Chest Pain unrelieved by NTG Ondansetron HCl (Zofran) 4 mg IV Q8H PRN PRN Reason: Nausea And Vomiting Sodium Chloride (Sodium Chloride Flush Syringe 10 Ml) 10 ml IV BID [facility] Last Admin: 12/28/18 11:02 Dose: 10 ml Documented by: Sodium Chloride (Sodium Chloride Flush Syringe 10 Ml) 10 ml IV PRN PRN PRN Reason: LINE FLUSH Review of Systems All systems: negative (Constitutional: no fever or chills. At that is diminished but no weight loss. HEENT: No sore throat or sinus drainage no hearing or vision impairment . Cardiovascular: See history of present illness. Respiratory: See history of present illness. Gastrointestinal: No nausea, vomiting, diarrhea, abdominal pain, hematemesis or melena. Admits to constipation and stools were dark on a phosphorus binder Genitourinary: No frequency urgency dysuria or hematuria. hematologic: No abnormal bleeding or bruising. Integumentary: Admits to pruritus but no rash. Neurological: Admits to headache no focal weakness or numbness, no syncope or seizures. Musculoskeletal: No joint pains no stiffness. Psychiatry: Admits to anxiety and depression) Exam - Vital Signs Vital signs: Vital Signs Temp Pulse Resp BP Pulse Ox 97.8 F 98 H 24 175/96 99 12/27/18 19:50 12/27/18 19:50 12/27/18 19:50 12/27/18 19:50 12/27/18 19:50 - Physical Exam Narrative exam: Middle-aged -[place] male lying in bed in mild respiratory distress HEENT: NCAT, pink oral mucous membrane Neck: Supple, no venous distention CVS: S1S2 RRR with systolic murmur, rub or gallop Chest: Diminished breath sounds in lower zones Abdomen: Distended, soft, nontender, no organomegaly, bowel sounds are present Extremities: Mild edema Skin: Hyperpigmented patches in both legs and feet Genitourinary deferred Neuro: Awake, alert no focal deficits Results - Lab Results 12/28/18 07:19 12/28/18 07:19 Most recent lab results Calcium 9.8 mg/dL (8.4-10.2) 12/28/18 07:19 Assessment and Plan - Patient Problems (1) Acute respiratory failure with hypoxia Current Visit: No Status: Acute (2) Chest pain Current Visit: Yes Status: Acute Plan to address problem: ? Significance. Management by fence setter (3) Hypertensive chronic kidney disease with stage 5 chronic kidney disease or end stage renal disease Current Visit: No Status: Acute Plan to address problem: Elevated blood pressure on presentation probably volume related. Follow up blood pressure following fluid removal with dialysis. Resume oral antihypertensive medication (4) Type 2 diabetes mellitus with diabetic chronic kidney disease Current Visit: No Status: Chronic Qualifiers: Chronic kidney disease stage: on chronic dialysis Plan to address problem: Blood sugar management by primary attending (5) ESRD (end stage renal disease) on dialysis Current Visit: Yes Status: Acute Plan to address problem: Hemodialysis for fluid removal sodium clearance. Reevaluate in the morning
[2018-12-28] MEDS ORDERED: SODIUM CHLORIDE 0.9% 100 ML IV PRN (11:30)
[2018-12-28] MEDS ORDERED: EPOETIN ALFA 10,000 UNIT/1 ML INJ IV PRN (11:30)
[2018-12-28] MEDS: diphenhydrAMINE 25 MG CAP PO PRN ×2 (12:26→21:40)
--- NOTE | 2018-12-28 12:30 | Consultation ---
History of Present Illness Consult date: 12/28/18 Consult reason: chest pain History of present illness: This is a 63-year old male with end stage renal disease and is on hemodialysis. He has a cardiac history of coronary artery disease with mutiple coronary stents. A cardiac cath late 2017 reports patent stent of the circumflex and of the right coronary artery. Ejection fraction 55%. Co-morbidities includes hypertension and diabetes. Patient presented with complaints of shortness of breath. There were no report of chest pain or palpitations. He had no syncope. Patient reports he has not missed any dialysis sessions. A chest x-ray done in the emergency department is suggestive of pneumonia. His ECG is sinus rhythm with early repolarization. Past History Social history: smoking (Smokes tobacco occasionally), alcohol abuse (Drinks alcohol occasionally) Family history: cancer (Father had unknown cancer), diabetes (Mother has diabetes mellitus), other (Mother had end-stage renal disease on dialysis) Medications and Allergies Allergies Allergy/AdvReac Type Severity Reaction Status Date / Time No Known Allergies Allergy Verified 02/28/17 00:21 Home Medications Medication Instructions Recorded Confirmed Last Taken Type Aspirin EC 325 mg PO QDAY #30 tablet 07/18/18 Unknown Rx AtorvaSTATin [Lipitor] 40 mg PO QHS #30 tablet 07/18/18 Unknown Rx B Complex 11/Folic/C/Biot/Zinc 1 each PO DAILY #30 tablet 07/18/18 Unknown Rx [Dialyvite with Zinc Tablet] Ergocalciferol (Vitamin D2) 50,000 unit PO QWEEK #5 capsule 07/18/18 Unknown Rx [Drisdol] Famotidine [Pepcid] 20 mg PO QDAY #30 tablet 07/18/18 Unknown Rx Furosemide [Lasix TAB] 40 mg PO QDAY #30 tablet 07/18/18 Unknown Rx Gabapentin 100 mg PO BID #60 capsule 07/18/18 Unknown Rx Metoprolol [Lopressor TAB] 25 mg PO BID #60 tablet 07/18/18 Unknown Rx Sevelamer Carbonate [Renvela] 2,400 mg PO AC #180 tablet 07/18/18 Unknown Rx hydrALAZINE [Apresoline TAB] 50 mg PO Q8HR #90 tablet 07/18/18 Unknown Rx hydrOXYzine HCL [Atarax] 25 mg PO Q6H PRN #30 tablet 07/18/18 Unknown Rx HYDROcodone/APAP 5-325 [[place] 1 each PO Q6HR PRN #14 tablet 07/24/18 Unknown Rx 5/325] Active Meds: Active Medications Acetaminophen (Tylenol) 650 mg PO Q4H PRN PRN Reason: Pain MILD(1-3)/Fever >100.5/SAEED Aspirin (Ecotrin) 325 mg PO QDAY [facility] Last Admin: 12/28/18 11:02 Dose: 325 mg Documented by: Dextrose (D50w (25gm) Syringe) 0 ml IV Q30MIN PRN; Protocol PRN Reason: Hypoglycemia Diphenhydramine HCl (Benadryl) 25 mg PO Q6H PRN PRN Reason: Itching Epoetin Will (Procrit) 10,000 unit IV JEANINE PRN PRN Reason: hemodialysis Heparin Sodium (Porcine) (Heparin) 5,000 unit SUB-Q Q8HR [facility] Last Admin: 12/28/18 06:47 Dose: 5,000 unit Documented by: Ceftriaxone Sodium (Rocephin/Ns 2 Gm/100 Ml) 2 gm in 100 mls @ 200 mls/hr IV Q24HR [facility]; Protocol Last Admin: 12/28/18 11:00 Dose: 200 mls/hr Documented by: Azithromycin 500 mg/ Sodium (Chloride) 250 mls @ 250 mls/hr IV Q24HR [facility]; Protocol Last Admin: 12/28/18 11:02 Dose: 250 mls/hr Documented by: Sodium Chloride (Nacl 0.9%) 100 mls @ 999 mls/hr IV JEANINE PRN PRN Reason: Hypotension Insulin Human Regular (Humulin R) 0 units SUB-Q ACHS [facility]; Protocol Last Admin: 12/28/18 11:19 Dose: 2 units Documented by: Magnesium Hydroxide (Milk Of Magnesia) 30 ml PO Q4H PRN PRN Reason: Constipation Morphine Sulfate (Morphine) 2 mg IV Q5MIN PRN PRN Reason: Chest Pain unrelieved by NTG Ondansetron HCl (Zofran) 4 mg IV Q8H PRN PRN Reason: Nausea And Vomiting Sodium Chloride (Sodium Chloride Flush Syringe 10 Ml) 10 ml IV BID [facility] Last Admin: 12/28/18 11:02 Dose: 10 ml Documented by: Sodium Chloride (Sodium Chloride Flush Syringe 10 Ml) 10 ml IV PRN PRN PRN Reason: LINE FLUSH Physical Examination Vital Signs Temp Pulse Resp BP Pulse Ox 97.8 F 98 H 24 175/96 99 12/27/18 19:50 12/27/18 19:50 12/27/18 19:50 12/27/18 19:50 12/27/18 19:50 General appearance: no acute distress HEENT: Positive: PERRL Neck: Positive: trachea midline Cardiac: Positive: Reg Rate and Rhythm Lungs: Positive: Decreased Breath Sounds Neuro: Positive: Weakness Results 12/28/18 07:19 12/28/18 07:19 Cardiac Enzymes 12/27/18 Range/Units 20:43 AST 13 (5-40) units/L Coagulation 12/28/18 Range/Units 07:19 PT 13.4 (12.2-14.9) Sec. INR 1.03 (0.87-1.13) APTT 38.1 H (24.2-36.6) Sec. Lipids 12/27/18 Range/Units 20:43 Triglycerides 43 (2-149) mg/dL Cholesterol 138 (50-199) mg/dL HDL Cholesterol 84 H (40-59) mg/dL Cholesterol/HDL Ratio 1.64 % CBC 12/27/18 12/28/18 Range/Units 20:43 07:19 WBC 8.2 4.8 (4.5-11.0) K/mm3 RBC 3.40 L 3.30 L (3.65-5.03) M/mm3 Hgb 11.5 L 11.3 L (11.8-15.2) gm/dl Hct 36.2 34.2 L (35.5-45.6) % Plt Count 177 177 (140-440) K/mm3 Lymph # 1.0 L (1.2-5.4) K/mm3 [place] # 0.9 H (0.0-0.8) K/mm3 Eos # 0.2 (0.0-0.4) K/mm3 Baso # 0.1 (0.0-0.1) K/mm3 Comprehensive Metabolic Panel 12/27/18 12/28/18 Range/Units 20:43 07:19 Sodium 142 139 (137-145) mmol/L Potassium 5.6 H 6.4 H* (3.6-5.0) mmol/L Chloride 102.4 98.6 (98-107) mmol/L Carbon Dioxide 19 L 16 L (22-30) mmol/L BUN 76 H 84 H (9-20) mg/dL Creatinine 9.8 H 10.8 H (0.8-1.5) mg/dL Glucose 88 208 H (75-100) mg/dL Calcium 9.8 9.8 (8.4-10.2) mg/dL AST 13 (5-40) units/L ALT 9 (7-56) units/L Alkaline Phosphatase 52 (35-129) units/L Total Protein 8.0 (6.3-8.2) g/dL Albumin 4.1 (3.9-5) g/dL
[2018-12-28 13:36] LABS: Hepatitis B Surface Antigen Non-Reactive (Negative); Hepatitis C Virus Antibody Non-Reactive (NonReactive)
[2018-12-28] MEDS ORDERED: HEPARIN 5,000 UNIT/1 ML VIAL SUB-Q SCH (14:00)
--- NOTE | 2018-12-28 14:08 | Consultation ---
History of Present Illness - Reason for Consult Consult date: 12/28/18 pneumonia Requesting physician: LUCIA RAMIREZ - History of Present Illness 63 y/o male with history of End-stage renal disease, on dialysis, Friday, Friday, Friday, hypertension, stroke, congestive heart failure, diabetes, seizure, CAD, known to our service in May 2018 with Staphlococcus Epidermidis bacteremia, admitted on 12/27/2018 due to 48 hour history of chest pain and progressive shortness of breath. He woke up the day before admission with acute chest pain and SOB. Pain was midsternal, 10 of 10 and increases with SOB and inspiration. Also noted a new cough, dry and chest congestions. No sick contacts. Also reporting confusion. Of note in May 2018 he had Staphlococcus Epidermidis bacteremia. TTE showed a possible old healed vegetation. STEVE was negative for vegetations. He was treated with cefazolin on HD for 2 weeks. He reports he received his pneumonia and flu vaccines at HD center. In the ED, temp 97.8. HR 98. WBC 8.2. BNP 10K. Blood culture 12/27/2018 no growth today. CXR shows patchy RML and RLL infiltrate. Review of Systems: Bold if positive, otherwise negative General: fevers, chills, body aches HEENT: visual disturbance, diplopia, eye pain Respiratory: SOB, cough, sputum, hemoptysis, shortness of breath, chest pain Cardiovascular: chest pain, syncope Gastrointestinal: nausea, vomiting, diarrhea, abdominal pain Genitourinary: dysuria, hematuria, flank pain Musculoskeletal: neck pain, back pain, joint pain, edema Neurologic: headaches, seizures Hematologic: easy bruising or bleeding Endocrine: night sweats, acute weight loss Skin: rash, jaundice, redness Psychiatric: suicidal, homicidal ideation Past History Past Medical History: CAD (History of cardiac stent placement in the past), ESRD (On dialysis Wednesdays and Fridays), heart failure, seizures, stroke (With residual right-sided weakness) Past Surgical History: PTCA, Other (AV fistula placement on the left arm) Social history: smoking (Smokes tobacco occasionally), alcohol abuse (Drinks alcohol occasionally) Family history: cancer (Father had unknown cancer), diabetes (Mother has diabetes mellitus), other (Mother had end-stage renal disease on dialysis) Medications and Allergies Allergies Allergy/AdvReac Type Severity Reaction Status Date / Time No Known Allergies Allergy Verified 02/28/17 00:21 Home Medications Medication Instructions Recorded Confirmed Last Taken Type Aspirin EC 325 mg PO QDAY #30 tablet 07/18/18 Unknown Rx AtorvaSTATin [Lipitor] 40 mg PO QHS #30 tablet 07/18/18 Unknown Rx B Complex 11/Folic/C/Biot/Zinc 1 each PO DAILY #30 tablet 07/18/18 Unknown Rx [Dialyvite with Zinc Tablet] Ergocalciferol (Vitamin D2) 50,000 unit PO QWEEK #5 capsule 07/18/18 Unknown Rx [Drisdol] Famotidine [Pepcid] 20 mg PO QDAY #30 tablet 07/18/18 Unknown Rx Furosemide [Lasix TAB] 40 mg PO QDAY #30 tablet 07/18/18 Unknown Rx Gabapentin 100 mg PO BID #60 capsule 07/18/18 Unknown Rx Metoprolol [Lopressor TAB] 25 mg PO BID #60 tablet 07/18/18 Unknown Rx Sevelamer Carbonate [Renvela] 2,400 mg PO AC #180 tablet 07/18/18 Unknown Rx hydrALAZINE [Apresoline TAB] 50 mg PO Q8HR #90 tablet 07/18/18 Unknown Rx hydrOXYzine HCL [Atarax] 25 mg PO Q6H PRN #30 tablet 07/18/18 Unknown Rx HYDROcodone/APAP 5-325 [[place] 1 each PO Q6HR PRN #14 tablet 07/24/18 Unknown Rx 5/325] Active Meds: Active Medications Acetaminophen (Tylenol) 650 mg PO Q4H PRN PRN Reason: Pain MILD(1-3)/Fever >100.5/SAEED Aspirin (Ecotrin) 325 mg PO QDAY [facility] Last Admin: 12/28/18 11:02 Dose: 325 mg Documented by: Dextrose (D50w (25gm) Syringe) 0 ml IV Q30MIN PRN; Protocol PRN Reason: Hypoglycemia Diphenhydramine HCl (Benadryl) 25 mg PO Q6H PRN PRN Reason: Itching Last Admin: 12/28/18 12:26 Dose: 25 mg Documented by: Epoetin Will (Procrit) 10,000 unit IV JEANINE PRN PRN Reason: hemodialysis Heparin Sodium (Porcine) (Heparin) 5,000 unit SUB-Q Q8HR [facility] Last Admin: 12/28/18 06:47 Dose: 5,000 unit Documented by: Ceftriaxone Sodium (Rocephin/Ns 2 Gm/100 Ml) 2 gm in 100 mls @ 200 mls/hr IV Q24HR [facility]; Protocol Last Admin: 12/28/18 11:00 Dose: 200 mls/hr Documented by: Azithromycin 500 mg/ Sodium (Chloride) 250 mls @ 250 mls/hr IV Q24HR [facility]; Protocol Last Admin: 12/28/18 11:02 Dose: 250 mls/hr Documented by: Sodium Chloride (Nacl 0.9%) 100 mls @ 999 mls/hr IV JEANINE PRN PRN Reason: Hypotension Insulin Human Regular (Humulin R) 0 units SUB-Q ACHS [facility]; Protocol Last Admin: 12/28/18 11:19 Dose: 2 units Documented by: Magnesium Hydroxide (Milk Of Magnesia) 30 ml PO Q4H PRN PRN Reason: Constipation Morphine Sulfate (Morphine) 2 mg IV Q5MIN PRN PRN Reason: Chest Pain unrelieved by NTG Ondansetron HCl (Zofran) 4 mg IV Q8H PRN PRN Reason: Nausea And Vomiting Sodium Chloride (Sodium Chloride Flush Syringe 10 Ml) 10 ml IV BID [facility] Last Admin: 12/28/18 11:02 Dose: 10 ml Documented by: Sodium Chloride (Sodium Chloride Flush Syringe 10 Ml) 10 ml IV PRN PRN PRN Reason: LINE FLUSH Physical Examination - Physical Exam Narrative exam: Constitutional: Alert, cooperative. No acute distress Head, Ears, Nose: Normocephalic, atraumatic. External ears, nose normal Eyes: Conjunctivae/corneas clear. No icterus. No ptosis. Neck: Supple, no meningeal signs Oral: dentition fair, no thrush Cardiovascular: S1, S2 normal. Respiratory: Good air entry,+right sided crackles GI: Soft, non-tender; uterus Musculoskeletal: No pedal edema, no cyanosis. b/l leg wounds Skin: No rash or abscess Hem/Lymphatic: No palpable cervical or supraclavicular nodes. No lymphangitis Psych: Mood ok. Affect normal Neurological: Awake, alert, oriented. No gross abnormality - Constitutional Vitals: Vital Signs Temp Pulse Resp BP Pulse Ox 98.2 F 90 18 196/106 94 11/18/19 08:26 12/28/18 03:35 12/28/18 08:26 12/28/18 08:26 12/28/18 08:45 Temperature -Last 24 Hours Temperature 98.2 F Temperature 98.6 F Temperature 98.6 F Temperature 98.6 F Temperature 97.8 F Results - Labs CBC & Chem 7: 12/28/18 07:19 12/28/18 07:19 Labs: Abnormal lab results 12/27/18 12/27/18 12/27/18 Range/Units 20:43 20:43 20:43 RBC 3.40 L (3.65-5.03) M/mm3 Hgb 11.5 L (11.8-15.2) gm/dl Hct (35.5-45.6) % MCV 106 H (84-94) fl MCH 34 H (28-32) pg RDW 16.4 H (13.2-15.2) % Lymph % (Auto) 12.4 L (13.4-35.0) % [place] % (Auto) 10.5 H (0.0-7.3) % Lymph # 1.0 L (1.2-5.4) K/mm3 [place] # 0.9 H (0.0-0.8) K/mm3 Seg Neutrophils % 73.4 H (40.0-70.0) % Seg Neuts % (Manual) (40.0-70.0) % Lymphocytes % (Manual) (13.4-35.0) % Lymphocytes # (Manual) (1.2-5.4) K/mm3 APTT (24.2-36.6) Sec. Potassium 5.6 H (3.6-5.0) mmol/L Carbon Dioxide 19 L (22-30) mmol/L BUN 76 H (9-20) mg/dL Creatinine 9.8 H (0.8-1.5) mg/dL Glucose (75-100) mg/dL POC Glucose (70-105) Troponin T 0.042 H (0.00-0.029) ng/mL NT-Pro-B Natriuret Pep 19726 H (0-900) pg/mL HDL Cholesterol 84 H (40-59) mg/dL 12/28/18 12/28/18 12/28/18 Range/Units 07:19 07:19 07:19 RBC 3.30 L (3.65-5.03) M/mm3 Hgb 11.3 L (11.8-15.2) gm/dl Hct 34.2 L (35.5-45.6) % MCV 104 H (84-94) fl MCH 34 H (28-32) pg RDW 16.0 H (13.2-15.2) % Lymph % (Auto) (13.4-35.0) % [place] % (Auto) (0.0-7.3) % Lymph # (1.2-5.4) K/mm3 [place] # (0.0-0.8) K/mm3 Seg Neutrophils % (40.0-70.0) % Seg Neuts % (Manual) 96.0 H (40.0-70.0) % Lymphocytes % (Manual) 3.0 L (13.4-35.0) % Lymphocytes # (Manual) 0.1 L (1.2-5.4) K/mm3 APTT 38.1 H (24.2-36.6) Sec. Potassium 6.4 H* (3.6-5.0) mmol/L Carbon Dioxide 16 L (22-30) mmol/L BUN 84 H (9-20) mg/dL Creatinine 10.8 H (0.8-1.5) mg/dL Glucose 208 H (75-100) mg/dL POC Glucose (70-105) Troponin T (0.00-0.029) ng/mL NT-Pro-B Natriuret Pep (0-900) pg/mL HDL Cholesterol (40-59) mg/dL 12/28/18 12/28/18 12/28/18 Range/Units 07:19 08:35 12:33 RBC (3.65-5.03) M/mm3 Hgb (11.8-15.2) gm/dl Hct (35.5-45.6) % MCV (84-94) fl MCH (28-32) pg RDW (13.2-15.2) % Lymph % (Auto) (13.4-35.0) % [place] % (Auto) (0.0-7.3) % Lymph # (1.2-5.4) K/mm3 [place] # (0.0-0.8) K/mm3 Seg Neutrophils % (40.0-70.0) % Seg Neuts % (Manual) (40.0-70.0) % Lymphocytes % (Manual) (13.4-35.0) % Lymphocytes # (Manual) (1.2-5.4) K/mm3 APTT (24.2-36.6) Sec. Potassium (3.6-5.0) mmol/L Carbon Dioxide (22-30) mmol/L BUN (9-20) mg/dL Creatinine (0.8-1.5) mg/dL Glucose (75-100) mg/dL POC Glucose 198 H 183 H (70-105) Troponin T 0.039 H (0.00-0.029) ng/mL NT-Pro-B Natriuret Pep (0-900) pg/mL HDL Cholesterol (40-59) mg/dL Assessment and Plan Cultures: Blood culture 12/27/2018 no growth today. Assessment: 63 y/o male with history of ESRD on HD, hypertension, stroke, congestive heart failure, diabetes, seizure, CAD, known to our service in May 2018 with Staphlococcus Epidermidis bacteremia, admitted on 12/27/2018 due to 48 hour his tory of cough, chest pain and progressive shortness of breath: 1) Right sided pneumonia: likely CAP, influenza or post influenza pneumonia. 2) History of Staphlococcus Epidermidis bacteremia in May 2018: TTE showed a possible old healed vegetation. STEVE was negative for vegetations. He was treated with cefazolin on HD for 2 weeks. Recs: continue ceftriaxone and azithromycin add renally adjusted tamiflu check for influenza antigen and PCR droplet precautions till influenza is r/o check legionella and strep pneumoniae urine ag Will follow. Thanks for consultation Angely Adam MD Infectious Diseases Bus Operator [facility], [place] ([facility]) M [phone] O [phone]
[2018-12-28] MEDS ORDERED: hydrALAZINE 20 MG/1 ML INJ IV PRN (21:59)
[2018-12-28] MEDS ORDERED: OSELTAMIVIR 75 MG CAP PO SCH (22:00)
[2018-12-29] MEDS: HEPARIN 5,000 UNIT/1 ML VIAL SUB-Q SCH ×3 (06:12→21:59)
--- NOTE | 2018-12-29 10:31 | Progress Note ---
Assessment and Plan Pneumonia End-stage renal disease on hemodialysis Hx of coronary artery disease prior multivessel stents. C 01/2018 demonstrated patent stents in the mid circumflex a midright coronary arteries, otherwise no significant residual lesions. an echocardiogram done 05/2018 reports an left ventricular ejection fraction of 60-65%. Hypertension Continue medical therapy for coronary artery disease. Subjective Date of service: 12/29/18 Interval history: Patient has no complaints. Objective Vital Signs Temp Pulse Resp BP Pulse Ox 12/29/18 08:14 98.3 F 18 165/87 12/29/18 03:37 98.2 F 81 18 138/69 96 12/29/18 03:00 85 12/28/18 23:13 97.9 F 86 19 160/88 98 12/28/18 22:57 20 98 12/28/18 22:45 80 181/103 12/28/18 19:24 98.1 F 86 18 181/103 96 12/28/18 19:00 84 12/28/18 16:30 98.2 F 82 18 186/82 12/28/18 16:15 88 168/67 12/28/18 16:00 75 168/66 12/28/18 15:45 78 172/83 12/28/18 15:30 81 171/92 12/28/18 15:15 80 180/86 12/28/18 15:00 80 185/85 12/28/18 14:45 82 197/71 12/28/18 14:30 89 189/87 12/28/18 14:15 83 190/95 12/28/18 14:00 86 170/74 12/28/18 13:45 86 175/74 12/28/18 13:30 88 220/105 12/28/18 13:15 92 H 185/90 12/28/18 13:00 91 H 201/98 12/28/18 12:50 89 186/106 12/28/18 12:35 98.2 F 92 H 18 205/112 12/28/18 11:00 80 - Physical Examination General: No Apparent Distress HEENT: Positive: PERRL Neck: Positive: trachea midline Cardiac: Positive: Reg Rate and Rhythm Lungs: Positive: Decreased Breath Sounds Neuro: Positive: Weakness
[2018-12-29] MEDS: AZITHROMYCIN 500 MG in SODIUM CHLORIDE 0.9% 250ML 250 ML IV SCH (11:14)
[2018-12-29] MEDS: ASPIRIN EC 325 MG TAB PO SCH (11:15)
[2018-12-29] MEDS: cefTRIAXone/NS 2 GM/100 ML 2 GM/100 ML BAG IV SCH ×2 (11:18→11:19)
[2018-12-29] MEDS: INSULIN REGULAR, HUMAN 100 UNITS/1 ML SUB-Q SCH ×4 (11:21→22:01)
[2018-12-29] MEDS: OSELTAMIVIR PHOSPHATE 30 MG/5 ML ORALSYR PO SCH (11:58)
--- NOTE | 2018-12-29 14:11 | Progress Note ---
Assessment and Plan Cultures: Blood culture 12/27/2018 no growth today. Assessment: 63 y/o male with history of ESRD on HD, hypertension, stroke, congestive heart failure, diabetes, seizure, CAD, known to our service in May 2018 with Staphlococcus Epidermidis bacteremia, admitted on 12/27/2018 due to 48 hour hi story of cough, chest pain and progressive shortness of breath: 1) Right sided pneumonia: likely CAP, influenza or post influenza pneumonia. Better. 2) History of Staphlococcus Epidermidis bacteremia in May 2018: TTE showed a possible old healed vegetation. STEVE was negative for vegetations. He was treated with cefazolin on HD for 2 weeks. Recs: continue ceftriaxone and azithromycin continue renally adjusted tamiflu check for influenza antigen and PCR if negative stop tamiflu droplet precautions till influenza is r/o f/u legionella and strep pneumoniae urine ag If clinically better ok to d/c on levaquin 500 mg po q 48h total 7 days Will follow. Thanks for consultation Angely Adam MD Infectious Diseases Motor Vehicle [employer] Salesperson [facility] ([facility]) M [phone] O [phone] Subjective Date of service: 12/29/18 Principal diagnosis: pneumonia Interval history: Feels better, no complaints. No fever. Objective - Exam Narrative Exam: Constitutional: Alert, cooperative. No acute distress Head, Ears, Nose: Normocephalic, atraumatic. External ears, nose normal Eyes: Conjunctivae/corneas clear. No icterus. No ptosis. Neck: Supple, no meningeal signs Oral: dentition fair, no thrush Cardiovascular: S1, S2 normal. Respiratory: Good air entry,+right sided crackles GI: Soft, non-tender; uterus Musculoskeletal: No pedal edema, no cyanosis. b/l leg wounds Skin: No rash or abscess Hem/Lymphatic: No palpable cervical or supraclavicular nodes. No lymphangitis Psych: Mood ok. Affect normal Neurological: Awake, alert, oriented. No gross abnormality - Constitutional Vitals: Vital Signs Temp Pulse Resp BP Pulse Ox 98.3 F 81 18 165/87 96 12/29/18 08:14 12/29/18 03:37 12/29/18 08:14 12/29/18 08:14 12/29/18 03:37 Temperature -Last 24 Hours Temperature 98.3 F Temperature 98.2 F Temperature 97.9 F Temperature 98.1 F Temperature 98.2 F - Labs CBC & Chem 7: 12/28/18 07:19 12/28/18 07:19 Labs: Abnormal lab results 12/28/18 12/28/18 12/29/18 Range/Units 17:12 21:27 11:38 POC Glucose 119 H 109 H 155 H (70-105)
--- NOTE | 2018-12-29 16:53 | Progress Note ---
Assessment and Plan Assessment and plan: Patient is a 63-year-old man with a history of end-stage renal disease, CVA with right residual weakness, CHF, seizure disorder which is now in remission, has not had a seizure in since 2018 and is no longer on meds who presented to the ER with shortness of breath and chest pain. * Chest x-ray; patchy right mid and lower lung parenchymal opacities * Echo from 05/29, preserved EF LVH, mild to moderate left ear and mild AR Chest pain, likely due to pneumonia Suspected Aspiration Pneumonia RML End-stage renal disease Acute hypoxic respiratory failure Pneumonia Hyperkalemia Plan: Patient now weaned off oxygen, continue empiric antibiotics Continue dialysis per nephrology, hyperkalemia should resolve with dialysis -Suspect that chest pain is likely due to pneumonia, cardiology input pending Preventative health counseling performed for 17 minutes DVT prophylaxis with heparin History Interval history: Patient was seen and examined. Follow-up on current diagnosis. No overnight events reported to me. Patient denies any chest pain, shortness breath, naus ea/vomiting or severe headaches. Imaging, nursing note, chart, labs and old chart reviewed. Discussed with patient. Hospitalist Physical - Physical exam Narrative exam: Gen: WDWN, NAD, Awake, Alert, Orientated HEENT: NCAT, EOMI, PERRL, OP Clear Neck: supple, no adenopathy, no thyromegaly, no JVD CVS/Heart: RRR, normal S1S2, pulses present bilaterally Chest/Lungs: bibasilar crackles, Symmetrical chest expansion, good air entry bilaterally GI/Abdomen: soft, NTND, good bowel sounds, no guarding or rebound /Bladder: no suprapubic tenderness, no CVA or paraspinal tenderness Extermity/Skin: no c/c/e, no obvious rash MSK: FROM x 4 Neuro: CN 2-12 grossly intact, no new focal deficits Psych: calm - Constitutional Vitals: Temp Pulse Resp BP Pulse Ox 98.3 F 81 18 165/87 96 12/29/18 08:14 12/29/18 03:37 12/29/18 08:14 12/29/18 08:14 12/29/18 03:37 General appearance: Present: no acute distress, well-nourished Results - Labs CBC & Chem 7: 12/28/18 07:19 12/30/18 06:04 Labs: Laboratory Last Values WBC 4.8 K/mm3 (4.5-11.0) 12/28/18 07:19 RBC 3.30 M/mm3 (3.65-5.03) L 12/28/18 07:19 Hgb 11.3 gm/dl (11.8-15.2) L 12/28/18 07:19 Hct 34.2 % (35.5-45.6) L 12/28/18 07: MCV 104 fl (84-94) H 12/28/18 07:19 MCH 34 pg (28-32) H 12/28/18 07: MCHC 33 % (32-34) 12/28/18 07: RDW 16.0 % (13.2-15.2) H 12/28/18 07:19 Plt Count 177 K/mm3 (140-440) 12/28/18 07:19 Lymph % (Auto) 12.4 % (13.4-35.0) L 12/27/18 20:43 [place] % (Auto) 10.5 % (0.0-7.3) H 12/27/18 20:43 Eos % (Auto) 2.7 % (0.0-4.3) 12/27/18 20:43 Baso % (Auto) 1.0 % (0.0-1.8) 12/27/18 20:43 Lymph # 1.0 K/mm3 (1.2-5.4) L 12/27/18 20:43 [place] # 0.9 K/mm3 (0.0-0.8) H 12/27/18 20:43 Eos # 0.2 K/mm3 (0.0-0.4) 12/27/18 20:43 Baso # 0.1 K/mm3 (0.0-0.1) 12/27/18 20:43 Add Manual Diff Complete 12/28/18 07:19 Total Counted 100 12/28/18 07:19 Seg Neutrophils % [place] [employer] 12/28/18 07: Seg Neuts % (Manual) 96.0 % (40.0-70.0) H 12/28/18 07: Band Neutrophils % 0 % 12/28/18 07:19 Lymphocytes % (Manual) 3.0 % (13.4-35.0) L 12/28/18 07:19 Reactive Lymphs % (Man) 0 % 12/28/18 07:19 Monocytes % (Manual) 1.0 % (0.0-7.3) 12/28/18 07:19 Eosinophils % (Manual) 0 % (0.0-4.3) 12/28/18 07:19 Basophils % (Manual) 0 % (0.0-1.8) 12/28/18 07:19 Metamyelocytes % 0 % 12/28/18 07:19 Myelocytes % 0 % 12/28/18 07: Promyelocytes % 0 % 12/28/18 07:19 Blast Cells % 0 % 12/28/18 07: Nucleated RBC % Not Reportable 12/28/18 07:19 Seg Neutrophils # 6.0 K/mm3 (1.8-7.7) 12/27/18 20:43 Seg Neutrophils # Man 4.6 K/mm3 (1.8-7.7) 12/28/18 07:19 Band Neutrophils # 0.0 K/mm3 12/28/18 07:19 Lymphocytes # (Manual) 0.1 K/mm3 (1.2-5.4) L 12/28/18 07:19 Abs React Lymphs (Man) 0.0 K/mm3 12/28/18 07:19 Monocytes # (Manual) 0.0 K/mm3 (0.0-0.8) 12/28/18 07:19 Eosinophils # (Manual) 0.0 K/mm3 (0.0-0.4) 12/28/18 07:19 Basophils # (Manual) 0.0 K/mm3 (0.0-0.1) 12/28/18 07:19 Metamyelocytes # 0.0 K/mm3 12/28/18 07:19 Myelocytes # 0.0 K/mm3 12/28/18 07:19 Promyelocytes # 0.0 K/mm3 12/28/18 07:19 Blast Cells # 0.0 K/mm3 12/28/18 07:19 WBC Morphology Not Reportable 12/28/18 07:19 Hypersegmented Neuts Not Reportable 12/28/18 07:19 Hyposegmented Neuts Not Reportable 12/28/18 07:19 Hypogranular Neuts Not Reportable 12/28/18 07:19 Smudge Cells Not Reportable 12/28/18 07:19 Toxic Granulation Not Reportable 12/28/18 07:19 Toxic Vacuolation Not Reportable 12/28/18 07:19 Dohle Bodies Not Reportable 12/28/18 07:19 Pelger-Huet Anomaly Not Reportable 12/28/18 07:19 Libby Rods Not Reportable 12/28/18 07:19 Platelet Estimate Consistent w auto 12/28/18 07:19 Clumped Platelets Not Reportable 12/28/18 07:19 Plt Clumps, EDTA Not Reportable 12/28/18 07:19 Large Platelets Not Reportable 12/28/18 07:19 Giant Platelets Not Reportable 12/28/18 07:19 Platelet Satelliting Not Reportable 12/28/18 07:19 Plt Morphology Comment Not Reportable 12/28/18 07:19 RBC Morphology Not Reportable 12/28/18 07:19 Dimorphic RBCs Not Reportable 12/28/18 07:19 Polychromasia Not Reportable 12/28/18 07:19 Hypochromasia Not Reportable 12/28/18 07:19 Poikilocytosis 1+ 12/28/18 07:19 Anisocytosis 1+ 12/28/18 07:19 Microcytosis Not Reportable 12/28/18 07:19 Macrocytosis Not Reportable 12/28/18 07:19 Spherocytes Not Reportable 12/28/18 07:19 Pappenheimer Bodies Not Reportable 12/28/18 07:19 Sickle Cells Not Reportable 12/28/18 07:19 Target Cells Not Reportable 12/28/18 07:19 Tear Drop Cells Few 12/28/18 07:19 Ovalocytes Not Reportable 12/28/18 07:19 Helmet Cells Not Reportable 12/28/18 07:19 [place] Bodies Not Reportable 12/28/18 07:19 [place] Rings Not Reportable 12/28/18 07:19 [place] Cells Few 12/28/18 07:19 Bite Cells Not Reportable 12/28/18 07:19 Crenated Cell Not Reportable 12/28/18 07:19 Elliptocytes Few 12/28/18 07:19 Acanthocytes (Spur) Not Reportable 12/28/18 07:19 Rouleaux Not Reportable 12/28/18 07:19 Hemoglobin C Crystals Not Reportable 12/28/18 07:19 Schistocytes Not Reportable 12/28/18 07:19 Malaria parasites Not Reportable 12/28/18 07:19 Ted Bodies Not Reportable 12/28/18 07:19 Hem Pathologist Commnt No 12/28/18 07:19 PT 13.4 Sec. (12.2-14.9) 12/28/18 07:19 INR 1.03 (0.87-1.13) 12/28/18 07:19 APTT 38.1 Sec. (24.2-36.6) H 12/28/18 07:19 Sodium 139 mmol/L (137-145) 12/28/18 07:19 Potassium 6.4 mmol/L (3.6-5.0) H* 12/28/18 07:19 Chloride 98.6 mmol/L (98-107) 12/28/18 07:19 Carbon Dioxide 16 mmol/L (22-30) L 12/28/18 07:19 Anion Gap 31 mmol/L 12/28/18 07:19 BUN 84 mg/dL (9-20) H 12/28/18 07:19 Creatinine 10.8 mg/dL (0.8-1.5) H 12/28/18 07:19 Estimated GFR 6 ml/min 12/28/18 07:19 BUN/Creatinine Ratio 8 % 12/28/18 07:19 Glucose 208 mg/dL (75-100) H 12/28/18 07:19 POC Glucose 155 (70-105) H 12/29/18 11:38 Lactic Acid 0.90 mmol/L (0.7-2.0) 12/27/18 21:11 Calcium 9.8 mg/dL (8.4-10.2) 12/28/18 07:19 Total Bilirubin 0.40 mg/dL (0.1-1.2) 12/27/18 20:43 AST 13 units/L (5-40) 12/27/18 20:43 ALT 9 units/L (7-56) 12/27/18 20:43 Alkaline Phosphatase 52 units/L (35-129) 12/27/18 20:43 Troponin T 0.039 ng/mL (0.00-0.029) H 12/28/18 07:19 NT-Pro-B Natriuret Pep 85091 pg/mL (0-900) H 12/27/18 20:43 Total Protein 8.0 g/dL (6.3-8.2) 12/27/18 20:43 Albumin 4.1 g/dL (3.9-5) 12/27/18 20:43 Albumin/Globulin Ratio 1.1 % 12/27/18 20:43 Triglycerides 43 mg/dL (2-149) 12/27/18 20:43 Cholesterol 138 mg/dL (50-199) 12/27/18 20:43 LDL Cholesterol Direct 55 mg/dL (50-130) 12/27/18 20:43 HDL Cholesterol 84 mg/dL (40-59) H 12/27/18 20:43 Cholesterol/HDL Ratio 1.64 % 12/27/18 20:43 Hepatitis A IgM Ab Non-reactive (NonReactive) 12/28/18 07:19 Hep Bs Antigen Non-reactive (Negative) 12/28/18 07:19 Hep B Core IgM Ab Non-reactive (NonReactive) 12/28/18 07:19 Hepatitis C Antibody Non-reactive (NonReactive) 12/28/18 07:19 Active Medications - Current Medications Current Medications: Generic Name Dose Route Start Last Admin Trade Name Freq PRN Reason Stop Dose Admin Acetaminophen 650 mg 12/27/18 22:27 Tylenol PO Q4H PRN Pain MILD(1-3)/Fever >100.5/SAEED Aspirin 325 mg 12/28/18 10:00 12/29/18 11:15 Ecotrin PO 325 mg QDAY GORDO Administration Dextrose 0 ml 12/27/18 22:27 D50w (25gm) Syringe IV Q30MIN PRN Hypoglycemia Protocol Diphenhydramine HCl 25 mg 12/28/18 11:34 12/28/18 21:40 Benadryl PO 25 mg Q6H PRN Administration Itching Epoetin Will 10,000 unit 12/28/18 11:30 Procrit IV JEANINE PRN hemodialysis Heparin Sodium (Porcine) 5,000 unit 12/28/18 06:00 12/29/18 06:12 Heparin SUB-Q 5,000 unit Q8HR GORDO Administration Hydralazine HCl 10 mg 12/28/18 21:59 12/28/18 22:45 Apresoline IV 10 mg Q4H PRN Administration Blood Pressure Ceftriaxone Sodium 2 gm in 100 mls @ 200 mls/hr 12/28/18 10:00 12/29/18 11:19 Rocephin/Ns 2 Gm/100 Ml IV 200 mls/hr Q24HR GORDO Administration Protocol Azithromycin 500 mg/ Sodium 250 mls @ 250 mls/hr 12/28/18 10:00 12/29/18 11:14 Chloride IV 250 mls/hr Q24HR GORDO Administration Protocol Sodium Chloride 100 mls @ 999 mls/hr 12/28/18 11:30 Nacl 0.9% IV JEANINE PRN Hypotension Insulin Human Regular 0 units 12/28/18 07:30 12/29/18 11:21 Humulin R SUB-Q Not Given ACHS GORDO Protocol Magnesium Hydroxide 30 ml 12/27/18 22:27 Milk Of Magnesia PO Q4H PRN Constipation Morphine Sulfate 2 mg 12/27/18 22:27 12/28/18 19:25 Morphine IV 2 mg Q5MIN PRN Administration Chest Pain unrelieved by NTG Ondansetron HCl 4 mg 12/27/18 22:27 Zofran IV Q8H PRN Nausea And Vomiting Oseltamivir Phosphate 30 mg 12/29/18 10:00 12/29/18 11:58 Tamiflu PO 01/01/19 10:01 30 mg DAILY GORDO Administration Sodium Chloride 10 ml 12/28/18 10:00 12/29/18 11:15 Sodium Chloride Flush Syringe 10 Ml IV 10 ml BID GORDO Administration Sodium Chloride 10 ml 12/27/18 22:27 Sodium Chloride Flush Syringe 10 Ml IV PRN PRN LINE FLUSH Nutrition/Malnutrition Assess - Dietary Evaluation Nutrition/Malnutrition Findings: Nutrition Notes Start: 12/28/18 13:41 Freq: Status: Active Protocol: Document 12/28/18 13:41 OH (Rec: 12/28/18 13:48 OH [id number]) Nutrition Notes Need for Assessment generated from: MD Order Initial or Follow up Assessment Current Diagnosis CKD (stage V CKD) Other Pertinent Diagnosis pneumonia Current Diet cardiac/consistent CHO Labs/Tests k+ 6.4 alb 4.1 Pertinent Medications Reviewed Height 5 ft Weight 79.4 kg Bates Body Weight (kg) 48.18 BMI 34.2 Intake Prior to Admission Poor Weight Status Obese Subjective/Other Information MD CONSULT FOR DIET EDUCATION. Pt. lying in bed moaning regarding his IV hurts. RN requested to evaluate IV and line disconnected. Pt. states he has dialysis today. 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 Pt.'s prepares/cooks meals for pt. He doesn't take any supplements at home but is willing to try. Since at hospital his appetite has improved. Percent of energy/protein needs met: 100/100% Burn Absent Trauma Absent GI Symptoms None Current % PO Good (75-100%) Minimum of two criteria No Energy Intake (severe) < or equal to 50% Estimated Energy Requirement > or equal to 5 days Is patient on ventilator? No Is Patient Ambulatory and/or Out of Bed Yes REE-([facility]-ambulatory/OOB) [ 1854.450 [id number]] Kcal/Kg value to use for calculation 25 Approximate Energy Requirements Using 1984 kcal/Kg Calculation Used for Recommendations Kcal/kg Additional Notes PRO: 1-1.3 g/kg 48-58 g/ day FLUID: 1 L/per MD recommendation Nutrition Intervention Change Diet Order: Renal diet Add Supplement/Snack (indicate name/kcal ENSURE ENLIVE X1 DAILY /protein ) Provides kCal: 350 Provides Protein (gm) 20 Teaching Recipient Patient Learning Readiness Good Teaching Methods Discussion Education Handouts Provided Educ pt on consuming small meals that consist of nutrient dense foods such as fruits/ lean protein/vegetables. Reinforced limiting high K+ foods such as potatoes/certain fruits/vegetables. Barriers to Learning Cognitive/Written,Motivation, Physical,Age related, Environmental Follow-Up By: 12/31/18 Additional Comments f/u ONS TOLERANCE
[2018-12-29] MEDS ORDERED: HYDROcodone/ACETAMINOPHEN 5-325 MG TAB PO PRN (19:20)
[2018-12-29] MEDS ORDERED: hydrOXYzine HCL 25 MG TAB PO PRN (19:20)
[2018-12-29] MEDS: hydrALAZINE 25 MG TAB PO SCH (21:58)
[2018-12-29] MEDS: GABAPENTIN 100 MG CAP PO SCH (21:59)
[2018-12-29] MEDS: METOPROLOL TARTRATE 25 MG TAB PO SCH (21:59)
--- NOTE | 2018-12-29 22:46 | Progress Note ---
Assessment and Plan - Patient Problems (1) Chest pain Current Visit: Yes Status: Acute Plan to address problem: secondary to pneumonia. Cardiology imput appreciated (2) Pneumonia Current Visit: Yes Status: Acute Qualifiers: Pneumonia type: due to unspecified organism Laterality: right Lung location: lower lobe of lung Qualified Code(s): J18.9 - Pneumonia, unspecified organism Plan to address problem: antibiotics per infectious disease outreach consultant appropriately dosed to the degree of renal function (3) Acute respiratory failure with hypoxia Current Visit: No Status: Acute Plan to address problem: Improved. Continue management (4) Hypertensive chronic kidney disease with stage 5 chronic kidney disease or end stage renal disease Current Visit: No Status: Acute Plan to address problem: Elevated blood pressure on presentation probably volume related. Blood pressure improved following fluid removal with dialysis. Continue oral antihypertensive medication (5) End stage renal disease on dialysis Current Visit: No Status: Chronic Plan to address problem: Continue hemodialysis on a Friday, Friday and Friday schedule (6) Type 2 diabetes mellitus with diabetic chronic kidney disease Current Visit: No Status: Chronic Qualifiers: Chronic kidney disease stage: on chronic dialysis Plan to address problem: Blood sugar management by primary attending Subjective Principal diagnosis: pneumonia Objective - Exam Narrative Exam: Middle-aged -Greek male lying in bed in no acute distress HEENT: NCAT, pink oral mucous membrane Neck: Supple, no venous distention CVS: S1S2 RRR with systolic murmur, rub or gallop Chest: Diminished breath sounds in lower zones Abdomen: Distended, soft, nontender, no organomegaly, bowel sounds are present Extremities: No edema, left upper extremity AV fistula Skin: Hyperpigmented patches in both legs and feet Genitourinary deferred Neuro: Awake, alert no focal deficits - Vital Signs Vital signs: Vital Signs - 12hr 12/29/18 12/29/18 12/29/18 11:00 11:33 16:06 Temperature 98.2 F 98.4 F Pulse Rate Respiratory 18 18 Rate Respiratory 18 Rate [Back] Blood Pressure 151/81 161/84 O2 Sat by Pulse Oximetry 12/29/18 12/29/18 12/29/18 19:45 21:58 21:59 Temperature 98.1 F Pulse Rate 80 80 80 Respiratory 18 Rate Respiratory Rate [Back] Blood Pressure 146/79 146/79 146/79 O2 Sat by Pulse 95 Oximetry - Lab 12/28/18 07:19 12/28/18 07:19 Most recent lab results Calcium 9.8 mg/dL (8.4-10.2) 12/28/18 07:19 Medications & Allergies - Medications Allergies/Adverse Reactions: Allergies No Known Allergies Allergy (Verified 02/28/17 00:21) Home Medications: Home Medications Medication Instructions Recorded Confirmed Last Taken Type Aspirin EC 325 mg PO QDAY #30 tablet 07/18/18 12/29/18 Unknown Rx AtorvaSTATin [Lipitor] 40 mg PO QHS #30 tablet 07/18/18 12/29/18 Unknown Rx B Complex 11/Folic/C/Biot/Zinc 1 each PO DAILY #30 tablet 07/18/18 12/29/18 Unknown Rx [Dialyvite with Zinc Tablet] Famotidine [Pepcid] 20 mg PO QDAY #30 tablet 07/18/18 12/29/18 Unknown Rx Furosemide [Lasix TAB] 40 mg PO QDAY #30 tablet 07/18/18 12/29/18 Unknown Rx Gabapentin 100 mg PO BID #60 capsule 07/18/18 12/29/18 Unknown Rx Metoprolol [Lopressor TAB] 25 mg PO BID #60 tablet 07/18/18 12/29/18 Unknown Rx hydrALAZINE [Apresoline TAB] 50 mg PO Q8HR #90 tablet 07/18/18 12/29/18 Unknown Rx HYDROcodone/APAP 5-325 [Elizabeth 1 each PO Q6HR PRN #14 tablet 07/24/18 12/29/18 Unknown Rx 5/325] hydrOXYzine HCL [Atarax] 25 mg PO Q8HR PRN 12/29/18 12/29/18 Unknown History Active Medications: Generic Name Dose Route Start Last Admin Trade Name Freq PRN Reason Stop Dose Admin Acetaminophen 650 mg 12/27/18 22:27 Tylenol PO Q4H PRN Pain MILD(1-3)/Fever >100.5/SAEED Acetaminophen/Hydrocodone Bitart 1 each 12/29/18 19:20 Elizabeth 5/325 PO Q6HR PRN PAIN Aspirin 325 mg 12/28/18 10:00 12/29/18 11:15 Ecotrin PO 325 mg QDAY GORDO Administration Atorvastatin Calcium 40 mg 12/29/18 22:00 12/29/18 21:59 Lipitor PO 40 mg QHS GORDO Administration Dextrose 0 ml 11/17/19 22:27 D50w (25gm) Syringe IV Q30MIN PRN Hypoglycemia Protocol Diphenhydramine HCl 25 mg 12/28/18 11:34 12/28/18 21:40 Benadryl PO 25 mg Q6H PRN Administration Itching Epoetin Will 10,000 unit 12/28/18 11:30 Procrit IV JEANINE PRN hemodialysis Furosemide 40 mg 12/30/18 06:00 Lasix PO DAILY@0600 GORDO Gabapentin 100 mg 12/29/18 22:00 12/29/18 21:59 Gabapentin PO 100 mg BID GORDO Administration Heparin Sodium (Porcine) 5,000 unit 12/28/18 06:00 12/29/18 21:59 Heparin SUB-Q 5,000 unit Q8HR GORDO Administration Hydralazine HCl 10 mg 12/28/18 21:59 12/28/18 22:45 Apresoline IV 10 mg Q4H PRN Administration Blood Pressure Hydralazine HCl 50 mg 12/29/18 22:00 12/29/18 21:58 Apresoline PO 50 mg Q8HR GORDO Administration Hydroxyzine HCl 25 mg 12/29/18 19:20 Atarax PO Q8HR PRN Itching Ceftriaxone Sodium 2 gm in 100 mls @ 200 mls/hr 12/28/18 10:00 12/29/18 11:19 Rocephin/Ns 2 Gm/100 Ml IV 200 mls/hr Q24HR GORDO Administration Protocol Azithromycin 500 mg/ Sodium 250 mls @ 250 mls/hr 12/28/18 10:00 12/29/18 11:14 Chloride IV 250 mls/hr Q24HR GORDO Administration Protocol Sodium Chloride 100 mls @ 999 mls/hr 12/28/18 11:30 Nacl 0.9% IV JEANINE PRN Hypotension Insulin Human Regular 0 units 12/28/18 07:30 12/29/18 22:01 Humulin R SUB-Q Not Given ACHS [facility] Protocol Magnesium Hydroxide 30 ml 12/27/18 22:27 Milk Of Magnesia PO Q4H PRN Constipation Metoprolol Tartrate 25 mg 12/29/18 22:00 12/29/18 21:59 Metoprolol PO 25 mg BID GORDO Administration Morphine Sulfate 2 mg 12/27/18 22:27 12/28/18 19:25 Morphine IV 2 mg Q5MIN PRN Administration Chest Pain unrelieved by NTG Multivit/Ca Carb/B Cmplx/FA/Prenat 1 cap 12/30/18 10:00 Renal Caps PO QDAY GORDO Ondansetron HCl 4 mg 12/27/18 22:27 Zofran IV Q8H PRN Nausea And Vomiting Oseltamivir Phosphate 30 mg 12/29/18 10:00 12/29/18 11:58 Tamiflu PO 01/01/19 10:01 30 mg DAILY GORDO Administration Sodium Chloride 10 ml 12/28/18 10:00 12/29/18 11:15 Sodium Chloride Flush Syringe 10 Ml IV 10 ml BID GORDO Administration Sodium Chloride 10 ml 12/27/18 22:27 12/29/18 22:01 Sodium Chloride Flush Syringe 10 Ml IV 10 ml PRN PRN Administration LINE FLUSH
[2018-12-30] MEDS: HEPARIN 5,000 UNIT/1 ML VIAL SUB-Q SCH ×2 (05:41→14:00)
[2018-12-30] MEDS: hydrALAZINE 25 MG TAB PO SCH ×2 (05:41→16:41)
[2018-12-30] MEDS ORDERED: FUROSEMIDE 40 MG TAB PO SCH (06:00)
[2018-12-30 07:05] LABS: Calcium 10.2 mg/dL (8.4-10.2)
[2018-12-30] MEDS: INSULIN REGULAR, HUMAN 100 UNITS/1 ML SUB-Q SCH ×2 (07:30→11:00)
[2018-12-30] MEDS ORDERED: FOLIC ACID/VIT B COMP W-C 1 MG (RENAL CAPS) PO SCH (10:00)
[2018-12-30] MEDS ORDERED: NON-FORMULARY EACH (B Complex 11/Folic/C/Biot/Zinc [Dialyvite With Zinc Tablet] 1 EACH) PO SCH (10:00)
--- NOTE | 2018-12-30 11:39 | Progress Note ---
<SILVERIO PINK - Last Filed: 12/30/18 11:38> Assessment and Plan Pneumonia End-stage renal disease on hemodialysis Hx of coronary artery disease prior multivessel stents. [facility] [place] 01/2018 demonstrated patent stents in the mid circumflex a midright coronary arteries, otherwise no significant residual lesions. an echocardiogram done 05/2018 reports an left ventricular ejection fraction of 60-65%. Hypertension Continue medical therapy for coronary artery disease. No active cardiac issues. We will sign off. Subjective Date of service: 12/30/18 Principal diagnosis: pneumonia Interval history: Patient has no complaints. For planned dialysis today. Objective Vital Signs Temp Pulse Resp Resp BP Pulse Ox 12/30/18 05:41 69 155/76 12/30/18 05:20 70 12/30/18 04:01 97.9 F 69 18 155/76 94 12/29/18 23:00 17 12/29/18 22:53 97.5 F L 79 17 172/97 98 12/29/18 22:00 96 12/29/18 21:59 80 146/79 12/29/18 21:58 80 146/79 12/29/18 19:45 98.1 F 80 18 146/79 95 12/29/18 19:00 79 12/29/18 16:06 98.4 F 18 161/84 - Physical Examination General: No Apparent Distress HEENT: Positive: PERRL Neck: Positive: trachea midline Cardiac: Positive: Reg Rate and Rhythm Lungs: Positive: Decreased Breath Sounds Neuro: Positive: Weakness - Labs and Meds Comprehensive Metabolic Panel 12/30/18 Range/Units 06:04 Sodium 142 (137-145) mmol/L Potassium 5.7 H (3.6-5.0) mmol/L Chloride 98.2 (98-107) mmol/L Carbon Dioxide 19 L (22-30) mmol/L BUN 83 H (9-20) mg/dL Creatinine 8.6 H (0.8-1.5) mg/dL Glucose 103 H (75-100) mg/dL Calcium 10.2 (8.4-10.2) mg/dL <TREY FRANCISCO - Last Filed: 01/02/19 10:39> Assessment and Plan I've seen and evaluated the patient and agree with the assessment and plan. The patient is presenting with end-stage renal disease on hemodialysis as well as a history of coronary artery disease with prior stents. Patient's most recent echocardiogram shows an ejection of 60-65%. At this time patient is cardiac stable lara. Recommend continue current medical therapy.
[2018-12-30 15:02] VITALS: BP 151/94
--- NOTE | 2018-12-30 16:23 | Progress Note ---
Assessment and Plan Cultures: Blood culture 12/27/2018 no growth today. Assessment: 63 y/o male with history of ESRD on HD, hypertension, stroke, congestive heart failure, diabetes, seizure, CAD, known to our service in May 2018 with Staphlococcus Epidermidis bacteremia, admitted on 12/27/2018 due to 48 hour hi story of cough, chest pain and progressive shortness of breath: 1) Right sided pneumonia: likely CAP, influenza or post influenza pneumonia. Better. 2) History of Staphlococcus Epidermidis bacteremia in May 2018: TTE showed a possible old healed vegetation. STEVE was negative for vegetations. He was treated with cefazolin on HD for 2 weeks. Recs: stop ceftriaxone and azithromycin stop renally tamiflu start levaquin po 500 mg every 48 hour total 7 days for pneumonia influenza antigen and PCR not done and patient remains w/o fever stop droplet precautions f/u legionella and strep pneumoniae urine ag ok to d/c from ID stand point Will follow. Angely Adam MD Infectious Diseases [employer] [facility] M [phone] O [phone] Subjective Date of service: 12/30/18 Principal diagnosis: pneumonia Interval history: Feels better, no complaints. No fever. Objective - Exam Narrative Exam: Constitutional: Alert, cooperative. No acute distress Head, Ears, Nose: Normocephalic, atraumatic. External ears, nose normal Eyes: Conjunctivae/corneas clear. No icterus. No ptosis. Neck: Supple, no meningeal signs Oral: dentition fair, no thrush Cardiovascular: S1, S2 normal. Respiratory: CTA justice GI: Soft, non-tender; uterus Musculoskeletal: No pedal edema, no cyanosis. b/l leg wounds Skin: No rash or abscess Hem/Lymphatic: No palpable cervical or supraclavicular nodes. No lymphangitis Psych: Mood ok. Affect normal Neurological: Awake, alert, oriented. No gross abnormality - Constitutional Vitals: Vital Signs Temp Pulse Resp BP Pulse Ox 98.7 F 73 16 151/94 94 12/30/18 14:00 12/30/18 14:00 12/30/18 14:00 12/30/18 14:00 12/30/18 04:01 Temperature -Last 24 Hours Temperature 98.7 F Temperature 97.8 F Temperature 97.9 F Temperature 97.5 F Temperature 98.1 F - Labs CBC & Chem 7: 12/28/18 07:19 12/30/18 06:04 Labs: Abnormal lab results 12/29/18 12/29/18 12/30/18 Range/Units 16:13 20:45 06:04 Potassium 5.7 H (3.6-5.0) mmol/L Carbon Dioxide 19 L (22-30) mmol/L BUN 83 H (9-20) mg/dL Creatinine 8.6 H (0.8-1.5) mg/dL Glucose 103 H (75-100) mg/dL POC Glucose 107 H 113 H (70-105)
--- NOTE | 2018-12-30 16:25 | Discharge Summary ---
Providers - Providers Date of Admission: 12/27/18 22:26 Date of discharge: 12/30/18 Attending physician: ANTON DEWEY 12/27/18 Consult to Cardiac Rehabilitation [CONS] Routine Reason For Exam: Phase I 12/27/18 22:29 Consult to Cardiology [CONS] Routine Consulting Provider: TREY FRANCISCO Reason For Exam: CHEST PAIN Consult to Dietitian/Nutrition [CONS] Routine Physician Instructions: Reason For Exam: Reason for Consult: Diet education 12/28/18 10:26 Consult to Physician [CONS] Routine Comment: Consulting Provider: BOBBY CORONADO Physician Instructions: Reason For Exam: pna 12/28/18 10:44 Consult to Physician [CONS] Routine Comment: Consulting Provider: BONY DOBBS Physician Instructions: Reason For Exam: ESRD Primary care physician: COMB TENDER Hospitalization Condition: Stable Hospital course: Patient is a 63-year-old man with a history of end-stage renal disease on HD, CVA with right residual weakness, CHF, seizure disorder which is now in remission, has not had a seizure in since 2018 and is no longer on meds who presented to the ER with shortness of breath and chest pain. * Chest x-ray; patchy right mid and lower lung parenchymal opacities * Echo from 05/29, preserved EF LVH, mild to moderate left ear and mild AR Discharge Diagnoses: Chest pain, likely due to pneumonia Suspected Aspiration Pneumonia RML, poa End-stage renal disease needing HD Acute hypoxic respiratory failure Hyperkalemia, mild, treat with HD today Chronic diastolic heart failure, poa Disposition: -01 TO HOME OR SELFCARE Time spent for discharge: 35 minutes Core Measure Documentation - Palliative Care Palliative Care/ Comfort Measures: Not Applicable - Core Measures Any of the following diagnoses?: none - VTE Discharge Requirements Deep Vein Thrombosis/Pulmonary Embolism Present on Admission: No Has pt received <5 days of overlap therapy or INR<2.0: No Anticoagulant overlap therapy prescribed at discharge: No Contraindication No Overlap Therapy order at DC: Not Indicated Exam - Physical Exam Narrative exam: Gen: WDWN, NAD, Awake, Alert, Orientated HEENT: NCAT, EOMI, PERRL, OP Clear Neck: supple, no adenopathy, no thyromegaly, no JVD CVS/Heart: RRR, normal S1S2, pulses present bilaterally Chest/Lungs: bibasilar crackles, Symmetrical chest expansion, good air entry bilaterally GI/Abdomen: soft, NTND, good bowel sounds, no guarding or rebound /Bladder: no suprapubic tenderness, no CVA or paraspinal tenderness Extermity/Skin: no c/c/e, no obvious rash MSK: FROM x 4 Neuro: CN 2-12 grossly intact, no new focal deficits Psych: calm - Constitutional Vitals: Temp Pulse Resp BP Pulse Ox 98.7 F 73 16 151/94 94 12/30/18 14:00 12/30/18 14:00 12/30/18 14:00 12/30/18 14:00 12/30/18 04:01 Plan Activity: other (no strenous activity unless cleared by PCP) Diet: renal Follow up with: PRIMARY MD KWAME [Primary Care Provider] - 7 Days TREY FRANCISCO MD [Staff Physician] - 7 Days BOBBY CORONADO MD [Staff Physician] - 7 Days BONY DOBBS MD [Staff Physician] - 7 Days Prescriptions: AtorvaSTATin [Lipitor] 40 mg PO QHS #30 tablet Aspirin EC 325 mg PO QDAY #30 tablet diphenhydrAMINE [Benadryl CAP] 25 mg PO Q6H PRN #15 capsule PRN Reason: Itching levoFLOXacin [Levaquin TAB] 500 mg PO Q48H #7 tablet
[2018-12-30] MEDS: GABAPENTIN 100 MG CAP PO SCH (16:38)
[2018-12-30] MEDS: METOPROLOL TARTRATE 25 MG TAB PO SCH (16:38)
[2018-12-30] MEDS: ASPIRIN EC 325 MG TAB PO SCH (16:40)
[2018-12-30] MEDS: OSELTAMIVIR PHOSPHATE 30 MG/5 ML ORALSYR PO SCH (16:52)
[2018-12-30] MEDS: AZITHROMYCIN 500 MG in SODIUM CHLORIDE 0.9% 250ML 250 ML IV SCH (16:52)
--- NOTE | 2018-12-30 20:05 | Progress Note ---
Assessment and Plan - Patient Problems (1) Pneumonia Current Visit: Yes Status: Acute Qualifiers: Pneumonia type: due to unspecified organism Laterality: right Lung location: lower lobe of lung Qualified Code(s): J18.9 - Pneumonia, unspecified organism Plan to address problem: antibiotics per infectious disease ent consultant appropriately dosed to the degree of renal function . I agree with discharge plans (2) Chest pain Current Visit: Yes Status: Acute Plan to address problem: secondary to pneumonia. Cardiology imput appreciated (3) Acute respiratory failure with hypoxia Current Visit: No Status: Acute Plan to address problem: Improved. Continue management (4) Hypertensive chronic kidney disease with stage 5 chronic kidney disease or end stage renal disease Current Visit: No Status: Acute Plan to address problem: Elevated blood pressure on presentation probably volume related. Blood pressure improved following fluid removal with dialysis. Continue oral antihypertensive medication (5) End stage renal disease on dialysis Current Visit: No Status: Chronic Plan to address problem: Continue hemodialysis on a Friday, Friday and Friday schedule (6) Type 2 diabetes mellitus with diabetic chronic kidney disease Current Visit: No Status: Chronic Qualifiers: Chronic kidney disease stage: on chronic dialysis Plan to address problem: Blood sugar management by primary attending Subjective Date of service: 12/30/18 Principal diagnosis: pneumonia Interval history: Patient seen lying in bed. He feels better now. Objective - Exam Narrative Exam: Middle-aged -[place] male lying in bed in no acute distress HEENT: NCAT, pink oral mucous membrane Neck: Supple, no venous distention CVS: S1S2 RRR with systolic murmur, rub or gallop Chest: Diminished breath sounds in lower zones Abdomen: Distended, soft, nontender, no organomegaly, bowel sounds are present Extremities: No edema, left upper extremity AV fistula Skin: Hyperpigmented patches in both legs and feet Genitourinary deferred Neuro: Awake, alert no focal deficits - Vital Signs Vital signs: Vital Signs - 12hr 12/30/18 12/30/18 12/30/18 11:00 11:15 11:30 Temperature 97.8 F Pulse Rate 76 73 75 Respiratory 18 Rate Blood Pressure 160/90 155/88 157/75 12/30/18 12/30/18 12/30/18 11:45 12:00 12:15 Temperature Pulse Rate 74 73 78 Respiratory Rate Blood Pressure 134/71 147/69 159/83 12/30/18 12/30/18 12/30/18 12:30 12:45 13:00 Temperature Pulse Rate 74 72 73 Respiratory Rate Blood Pressure 159/75 138/78 136/81 12/30/18 12/30/18 12/30/18 13:15 13:30 13:45 Temperature Pulse Rate 78 69 65 Respiratory Rate Blood Pressure 157/84 137/87 160/87 12/30/18 12/30/18 12/30/18 14:00 16:38 16:41 Temperature 98.7 F Pulse Rate 73 64 64 Respiratory 16 Rate Blood Pressure 151/94 - Lab 12/28/18 07:19 12/30/18 06:04 Most recent lab results Calcium 10.2 mg/dL (8.4-10.2) 12/30/18 06:04 Medications & Allergies - Medications Allergies/Adverse Reactions: Allergies No Known Allergies Allergy (Verified 02/28/17 00:21) Home Medications: Home Medications Medication Instructions Recorded Confirmed Last Taken Type Furosemide [Lasix TAB] 40 mg PO QDAY #30 tablet 07/18/18 12/29/18 Unknown Rx Gabapentin 100 mg PO BID #60 capsule 07/18/18 12/29/18 Unknown Rx Metoprolol [Lopressor TAB] 25 mg PO BID #60 tablet 07/18/18 12/29/18 Unknown Rx Acetaminophen [Acetaminophen TAB] 650 mg PO Q4H PRN tablet 12/30/18 Unknown Rx Aspirin EC 325 mg PO QDAY #30 tablet 12/30/18 Unknown Rx AtorvaSTATin [Lipitor] 40 mg PO QHS #30 tablet 12/30/18 Unknown Rx Epoetin Will 10,000 Unit [Procrit] 10,000 unit IV JEANINE PRN #1 vial 12/30/18 Unknown Rx Folic Acid/Vit B Comp W-C [Renal 1 cap PO QDAY #30 capsule 12/30/18 Unknown Rx Caps] Oseltamivir Phosphate [Tamiflu] 30 mg PO DAILY #2 oralsyr 12/30/18 Unknown Rx diphenhydrAMINE [Benadryl CAP] 25 mg PO Q6H PRN #15 capsule 12/30/18 Unknown Rx hydrALAZINE [Apresoline TAB] 2 tab PO Q8HR #90 tablet 12/30/18 12/29/18 Unknown Rx hydrOXYzine HCL [Atarax] 25 mg PO Q8HR PRN #30 12/30/18 12/29/18 Unknown Rx levoFLOXacin [Levaquin TAB] 500 mg PO Q48H #7 tablet 12/30/18 Unknown Rx Active Medications: Generic Name Dose Route Start Last Admin Trade Name Freq PRN Reason Stop Dose Admin Acetaminophen 650 mg 12/27/18 22:27 12/30/18 16:40 Tylenol PO 650 mg Q4H PRN Administration Pain MILD(1-3)/Fever >100.5/SAEED Acetaminophen/Hydrocodone Bitart 1 each 12/29/18 19:20 [place] 5/325 PO Q6HR PRN Pain, Moderate (4-6) Aspirin 325 mg 12/28/18 10:00 12/30/18 16:40 Ecotrin PO 325 mg QDAY GORDO Administration Atorvastatin Calcium 40 mg 12/29/18 22:00 12/29/18 21:59 Lipitor PO 40 mg QHS GORDO Administration Dextrose 0 ml 12/27/18 22:27 D50w (25gm) Syringe IV Q30MIN PRN Hypoglycemia Protocol Diphenhydramine HCl 25 mg 12/28/18 11:34 12/28/18 21:40 Benadryl PO 25 mg Q6H PRN Administration Itching Epoetin Will 10,000 unit 12/28/18 11:30 Procrit IV JEANINE PRN hemodialysis Furosemide 40 mg 12/30/18 06:00 12/30/18 05:41 Lasix PO 40 mg DAILY@0600 GORDO Administration Gabapentin 100 mg 12/29/18 22:00 12/30/18 16:38 Gabapentin PO 100 mg BID GORDO Administration Heparin Sodium (Porcine) 5,000 unit 12/28/18 06:00 12/30/18 14:00 Heparin SUB-Q Not Given Q8HR GORDO Hydralazine HCl 10 mg 12/28/18 21:59 12/28/18 22:45 Apresoline IV 10 mg Q4H PRN Administration Blood Pressure Hydralazine HCl 50 mg 12/29/18 22:00 12/30/18 16:41 Apresoline PO 50 mg Q8HR GORDO Administration Hydroxyzine HCl 25 mg 12/29/18 19:20 Atarax PO Q8HR PRN Itching Azithromycin 500 mg/ Sodium 250 mls @ 250 mls/hr 12/28/18 10:00 12/30/18 16:52 Chloride IV 250 mls/hr Q24HR GORDO Administration Protocol Sodium Chloride 100 mls @ 999 mls/hr 12/28/18 11:30 Nacl 0.9% IV JEANINE PRN Hypotension Insulin Human Regular 0 units 12/28/18 07:30 12/30/18 11:00 Humulin R SUB-Q Not Given ACHS GORDO Protocol Magnesium Hydroxide 30 ml 12/27/18 22:27 Milk Of Magnesia PO Q4H PRN Constipation Metoprolol Tartrate 25 mg 12/29/18 22:00 12/30/18 16:38 Metoprolol PO 25 mg BID GORDO Administration Morphine Sulfate 2 mg 12/27/18 22:27 12/28/18 19:25 Morphine IV 2 mg Q5MIN PRN Administration Chest Pain unrelieved by NTG Multivit/Ca Carb/B Cmplx/FA/Prenat 1 cap 12/30/18 10:00 12/30/18 16:47 Renal Caps PO 1 cap QDAY GORDO Administration Ondansetron HCl 4 mg 12/27/18 22:27 Zofran IV Q8H PRN Nausea And Vomiting Oseltamivir Phosphate 30 mg 12/29/18 10:00 12/30/18 16:52 Tamiflu PO 01/01/19 10:01 30 mg DAILY GORDO Administration Sodium Chloride 10 ml 12/28/18 10:00 12/30/18 16:52 Sodium Chloride Flush Syringe 10 Ml IV 10 ml BID GORDO Administration Sodium Chloride 10 ml 12/27/18 22:27 12/30/18 05:42 Sodium Chloride Flush Syringe 10 Ml IV 10 ml PRN PRN Administration LINE FLUSH
== END 2018-12-30 20:00 | disposition home or self-care (01) | DRG 177 ==
LOC: ED 19:45 → 4A 22:26
PROVIDERS: ADMIT Internal Medicine Geriatric Medicine; ATTEND Internal Medicine
PROC: 5A1D70Z Performance of Urinary Filtration, Intermittent, Less than 6 Hours Per Day (ICD-10-PCS; principal; 2018-12-28)
PROC: 5A1D70Z Performance of Urinary Filtration, Intermittent, Less than 6 Hours Per Day (ICD-10-PCS; 2018-12-30)
DX: J69.0 Pneumonitis due to inhalation of food and vomit (principal); N18.6 End stage renal disease; J96.01 Acute respiratory failure with hypoxia; I13.2 Hypertensive heart and chronic kidney disease with heart failure and with stage 5 chronic kidney disease, or end stage renal disease; I69.351 Hemiplegia and hemiparesis following cerebral infarction affecting right dominant side; E87.2 Acidosis; I50.32 Chronic diastolic (congestive) heart failure; E87.5 Hyperkalemia; E11.22 Type 2 diabetes mellitus with diabetic chronic kidney disease; I25.10 Atherosclerotic heart disease of native coronary artery without angina pectoris; G40.909 Epilepsy, unspecified, not intractable, without status epilepticus; F17.200 Nicotine dependence, unspecified, uncomplicated; F10.10 Alcohol abuse, uncomplicated; Z80.9 Family history of malignant neoplasm, unspecified; Z99.2 Dependence on renal dialysis; Z95.5 Presence of coronary angioplasty implant and graft; Z83.3 Family history of diabetes mellitus; Z79.82 Long term (current) use of aspirin; Z79.899 Other long term (current) drug therapy; I25.2 Old myocardial infarction
CPT/HCPCS: 36415; 71045; 80048; 80053; 80061; 80074; 82140; 82962; 83880; 84484; 85007; 85025; 85610; 85730; 87040; 93005; 93010; G0378; A9270-GY; J0360; J0456; J0692; J0696; J1644; J1940; J2930; J7050

== ENCOUNTER 2019-01-09 04:48 | Inpatient (IN) | payer MEDICARE ==
[2019-01-09] MEDS ORDERED: NITROGLYCERIN 0.4 MG TAB SUBL SL ONE (04:56)
[2019-01-09] MEDS ORDERED: ASPIRIN 325 MG TAB PO ONE (04:56)
--- NOTE | 2019-01-09 05:23 | XRay Report ---
CHEST 1 VIEW INDICATION / CLINICAL INFORMATION: Chest Pain ESRD dyspnea. COMPARISON: None available. FINDINGS: SUPPORT DEVICES: None. HEART / MEDIASTINUM: No significant abnormality. LUNGS / PLEURA: Patchy bibasilar airspace densities bilaterally, right worse than left. Signer Name: Raffaele Stevenson MD Signed: 01/09/2019 5:18 AM Workstation Name: [id number]
[2019-01-09 06:02] LABS: Basophils # (Auto) 0.1 K/mm3 (0.0-0.1); Basophils % (Auto) 1.3 % (0.0-1.8); Eosinophils # (Auto) 0.1 K/mm3 (0.0-0.4); Eosinophils % (Auto) 1.6 % (0.0-4.3); Hematocrit 32.2 % (35.5-45.6); Hemoglobin 10.7 gm/dl (11.8-15.2); Lymphocytes # (Auto) 0.7 K/mm3 (1.2-5.4); Lymphocytes % (Auto) 8.9 % (13.4-35.0); Mean Corpuscular HGB Conc 33 % (32-34); Mean Corpuscular Volume 103 fl (84-94); Monocytes # (Auto) 0.8 K/mm3 (0.0-0.8); Monocytes % (Auto) 11.3 % (0.0-7.3); Platelet Count 175 K/mm3 (140-440); Red Blood Count 3.12 M/mm3 (3.65-5.03)
[2019-01-09 06:18] LABS: Albumin 4.1 g/dL (3.9-5)
[2019-01-09] MEDS ORDERED: diphenhydrAMINE 25 MG CAP PO ONE ×2 (06:35→07:43)
--- NOTE | 2019-01-09 07:09 | Emergency Department Report ---
ED General Adult HPI - General Chief complaint: Chest Pain Stated complaint: CHEST PAIN Time Seen by Provider: 01/09/19 06:14 Source: patient, EMS Mode of arrival: Stretcher Limitations: No Limitations - History of Present Illness Initial comments: Is a 63-year-old male who states he missed his dialysis. He does complain of some shortness of breath. He is a bit scattered in his speech. He complains of itching. He states he missed dialysis on Friday doesn't mention Friday. He states he had shortness of breath and anterior chest pain which did not radiate. He is not complaining of chest pain now only itching. He has a history of seizure disorder. He was recently admitted here. He was considered to have a right lower lobe pneumonia which might have been consistent with an aspiration. Her discharge summary Hospitalization Condition: Stable Hospital course: Patient is a 63-year-old man with a history of end-stage renal disease on HD, CVA with right residual weakness, CHF, seizure disorder which is now in remission, has not had a seizure in since 2018 and is no longer on meds who presented to the ER with shortness of breath and chest pain. Chest x-ray; patchy right mid and lower lung parenchymal opacities Echo from 05/29, preserved EF LVH, mild to moderate left ear and mild AR Discharge Diagnoses: Chest pain, likely due to pneumonia Suspected Aspiration Pneumonia RML, poa End-stage renal disease needing HD Acute hypoxic respiratory failure Hyperkalemia, mild, treat with HD today Chronic diastolic heart failure, poa Disposition: TO HOME OR SELFCARE Time spent for discharge: 35 minutes -: Gradual, During the night Location: chest Radiation: non-radiation Quality: aching Consistency: now resolved Improves with: none Worsens with: none Associated Symptoms: shortness of breath Treatments Prior to Arrival: none - Related Data Previous Rx's Medication Instructions Recorded Last Taken Type Furosemide [Lasix TAB] 40 mg PO QDAY #30 tablet 07/18/18 Unknown Rx Gabapentin 100 mg PO BID #60 capsule 07/18/18 Unknown Rx Metoprolol [Lopressor TAB] 25 mg PO BID #60 tablet 07/18/18 Unknown Rx Acetaminophen [Acetaminophen TAB] 650 mg PO Q4H PRN tablet 12/30/18 Unknown Rx Aspirin EC 325 mg PO QDAY #30 tablet 12/30/18 Unknown Rx AtorvaSTATin [Lipitor] 40 mg PO QHS #30 tablet 12/30/18 Unknown Rx Epoetin Will 10,000 Unit [Procrit] 10,000 unit IV JEANINE PRN #1 vial 12/30/18 Unknown Rx Folic Acid/Vit B Comp W-C [Renal 1 cap PO QDAY #30 capsule 12/30/18 Unknown Rx Caps] Oseltamivir Phosphate [Tamiflu] 30 mg PO DAILY #2 oralsyr 12/30/18 Unknown Rx diphenhydrAMINE [Benadryl CAP] 25 mg PO Q6H PRN #15 capsule 12/30/18 Unknown Rx hydrALAZINE [Apresoline TAB] 2 tab PO Q8HR #90 tablet 12/30/18 Unknown Rx hydrOXYzine HCL [Atarax] 25 mg PO Q8HR PRN #30 12/30/18 Unknown Rx levoFLOXacin [Levaquin TAB] 500 mg PO Q48H #7 tablet 12/30/18 Unknown Rx Allergies Allergy/AdvReac Type Severity Reaction Status Date / Time No Known Allergies Allergy Verified 02/28/17 00:21 ED Review of Systems ROS: Stated complaint: CHEST PAIN Other details as noted in HPI Constitutional: denies: chills, fever Eyes: denies: eye pain, eye discharge, vision change ENT: denies: ear pain, throat pain Respiratory: shortness of breath. denies: cough, wheezing Cardiovascular: chest pain. denies: palpitations Endocrine: no symptoms reported Gastrointestinal: denies: abdominal pain, nausea, diarrhea Genitourinary: denies: urgency, dysuria Musculoskeletal: denies: back pain, joint swelling, arthralgia Skin: denies: rash, lesions Neurological: denies: headache, weakness, paresthesias Psychiatric: denies: anxiety, depression Hematological/Lymphatic: denies: easy bleeding, easy bruising ED Past Medical Hx - Past Medical History Hx Hypertension: Yes Hx CVA: Yes (x2 (residual right sided weakness)) Hx Heart Attack/AMI: Yes Hx Congestive Heart Failure: Yes Hx Diabetes: Yes Hx Deep Vein Thrombosis: No Hx Liver Disease: No Hx Renal Disease: No Hx Arthritis: No Hx Seizures: Yes (last seizure was in 2018 pt is no longer on Meds ) Hx Kidney Stones: No Hx Asthma: No Hx COPD: No Hx Dementia: No Hx HIV: No Additional medical history: Cardiac Stents, dialysis M-W- - Surgical History Hx Coronary Stent: Yes Hx Pacemaker: No Hx Internal Defibrillator: No Additional Surgical History: Cardiac stents 3 months ago 08/22? av graft to left arm - Social History Smoking Status: Current Some Day Smoker Substance Use Type: Alcohol - Medications Home Medications: Home Medications Medication Instructions Recorded Confirmed Last Taken Type Furosemide [Lasix TAB] 40 mg PO QDAY #30 tablet 07/18/18 12/29/18 Unknown Rx Gabapentin 100 mg PO BID #60 capsule 07/18/18 12/29/18 Unknown Rx Metoprolol [Lopressor TAB] 25 mg PO BID #60 tablet 07/18/18 12/29/18 Unknown Rx Acetaminophen [Acetaminophen TAB] 650 mg PO Q4H PRN tablet 12/30/18 Unknown Rx Aspirin EC 325 mg PO QDAY #30 tablet 12/30/18 Unknown Rx AtorvaSTATin [Lipitor] 40 mg PO QHS #30 tablet 12/30/18 Unknown Rx Epoetin Will 10,000 Unit [Procrit] 10,000 unit IV JEANINE PRN #1 vial 12/30/18 Unknown Rx Folic Acid/Vit B Comp W-C [Renal 1 cap PO QDAY #30 capsule 12/30/18 Unknown Rx Caps] Oseltamivir Phosphate [Tamiflu] 30 mg PO DAILY #2 oralsyr 12/30/18 Unknown Rx diphenhydrAMINE [Benadryl CAP] 25 mg PO Q6H PRN #15 capsule 12/30/18 Unknown Rx hydrALAZINE [Apresoline TAB] 2 tab PO Q8HR #90 tablet 12/30/18 12/29/18 Unknown Rx hydrOXYzine HCL [Atarax] 25 mg PO Q8HR PRN #30 12/30/18 12/29/18 Unknown Rx levoFLOXacin [Levaquin TAB] 500 mg PO Q48H #7 tablet 12/30/18 Unknown Rx ED Physical Exam - General Limitations: Physical Limitation General appearance: alert, in no apparent distress - Head Head exam: Present: atraumatic, normocephalic - Eye Eye exam: Present: normal appearance - ENT ENT exam: Present: mucous membranes moist - Neck Neck exam: Present: normal inspection. Absent: tenderness, meningismus - Respiratory Respiratory exam: Present: normal lung sounds bilaterally. Absent: respiratory distress - Cardiovascular Cardiovascular Exam: Present: regular rate, normal rhythm. Absent: systolic murmur, diastolic murmur, rubs, gallop - GI/Abdominal GI/Abdominal exam: Present: soft, normal bowel sounds. Absent: distended, tenderness, guarding, rebound, rigid - Rectal Rectal exam: Present: deferred - Extremities Exam Extremities exam: Present: normal inspection, other (1+ pretibial edema) - Back Exam Back exam: Present: normal inspection - Neurological Exam Neurological exam: Present: alert, oriented X3, other (no acute focal deficit) - Psychiatric Psychiatric exam: Present: normal affect, normal mood - Skin Skin exam: Present: warm, dry, intact, normal color. Absent: rash ED Course Vital Signs 01/09/19 01/09/19 01/09/19 05:06 05:09 05:18 Temperature 97.9 F Pulse Rate 90 89 Respiratory 20 Rate Blood Pressure 149/80 149/80 O2 Sat by Pulse 96 Oximetry 01/09/19 01/09/19 01/09/19 05:35 05:46 06:00 Temperature Pulse Rate 86 83 87 Respiratory 20 16 26 H Rate Blood Pressure 135/79 135/79 143/80 O2 Sat by Pulse 92 93 93 Oximetry 01/09/19 06:30 Temperature Pulse Rate 87 Respiratory 14 Rate Blood Pressure 153/89 O2 Sat by Pulse 95 Oximetry - Reevaluation(s) Reevaluation #1: Discussed with Dr. Nicholson. He will entered dialysis orders. 01/09/19 07:19 Reevaluation #2: Discussed with hospitalist. Admit to Dr. Morris's service. 01/09/19 07:41 ED Medical Decision Making - Lab Data Result diagrams: 01/09/19 05:41 01/09/19 05:41 Laboratory Results - last 24 hr 01/09/19 01/09/19 05:41 05:41 WBC 7.3 RBC 3.12 L Hgb 10.7 L Hct 32.2 L MCV 103 H MCH 34 H MCHC 33 RDW 16.0 H Plt Count 175 Lymph % (Auto) 8.9 L [place] % (Auto) 11.3 H Eos % (Auto) 1.6 Baso % (Auto) 1.3 Lymph # 0.7 L [place] # 0.8 Eos # 0.1 Baso # 0.1 Seg Neutrophils % 76.9 H Seg Neutrophils # 5.6 Sodium 139 Potassium 5.8 H Chloride 102.0 Carbon Dioxide 19 L Anion Gap 24 BUN 77 H Creatinine 13.3 H Estimated GFR 5 BUN/Creatinine Ratio 6 Glucose 93 AST 17 ALT 8 Alkaline Phosphatase 51 Troponin T 0.070 H Total Protein 7.0 Albumin 4.1 Albumin/Globulin Ratio 1.4 - EKG Data -: EKG Interpreted by Me EKG shows normal: sinus rhythm Rate: normal - EKG Data Interpretation: nonspecific ST-T wave tobin, other (bilateral atrial enlargement, nonspecific ST-T wave changes although suggestive of hyperkalemia) - Radiology Data Radiology results: report reviewed, image reviewed LUNGS / PLEURA: Patchy bibasilar airspace densities bilaterally, right worse than left. Critical care attestation.: If time is entered above; I have spent that time in minutes in the direct care of this critically ill patient, excluding procedure time. ED Disposition Clinical Impression: End-stage renal disease needing dialysis CHF (congestive heart failure) Qualifiers: Heart failure type: unspecified Heart failure chronicity: acute on chronic Qualified Code(s): I50.9 - Heart failure, unspecified Chest pain Qualifiers: Chest pain type: unspecified Qualified Code(s): R07.9 - Chest pain, unspecified Disposition: 09 OP ADMIT IP TO THIS HOSP Is pt being admited?: Yes Does the pt Need Aspirin: Yes Condition: Stable Instructions: Chest Pain (ED) Referrals: PRIMARY CAREMD [Primary Care Provider] - 3-5 Days Time of Disposition: 07:42
[2019-01-09 07:49] LABS: Chol/HDL Ratio 1.7 %
[2019-01-09 08:02] LABS: Calcium 9.6 mg/dL (8.4-10.2)
[2019-01-09] MEDS ORDERED: SODIUM CHLORIDE 0.9% 100 ML IV PRN ×2 (08:40→12:30)
[2019-01-09] MEDS ORDERED: INSULIN REGULAR, HUMAN 100 UNITS/1 ML IV STA (09:10)
[2019-01-09] MEDS ORDERED: CALCIUM GLUCONATE 1,000 MG in SODIUM CHLORIDE 0.9% 100 ML IV STA (09:10)
[2019-01-09] MEDS ORDERED: DEXTROSE 50% IN WATER (25GM) 50 ML SYRINGE IV STA (09:12)
--- NOTE | 2019-01-09 10:51 | Consultation ---
History of Present Illness - Reason for Consult Consult date: 01/09/19 - History of Present Illness 63 y/o AAM with h/o ESRD well known to our outpatient HD clinic, presented to the ED secondary to worsening of shortness of breath in the setting of missed HD session, with his last HD session being on Friday. He states that he had not went to dialysis secondary to the recent passing of his brother this week. Nephrology consulted at this time secondary to chronic HD needs. Past History Past Medical History: CAD, dialysis, ESRD, heart failure, hypertension Past Surgical History: PTCA Social history: smoking Family history: cancer, diabetes Medications and Allergies Allergies Allergy/AdvReac Type Severity Reaction Status Date / Time No Known Allergies Allergy Verified 02/28/17 00:21 Home Medications Medication Instructions Recorded Confirmed Last Taken Type Furosemide [Lasix TAB] 40 mg PO QDAY #30 tablet 07/18/18 12/29/18 Unknown Rx Gabapentin 100 mg PO BID #60 capsule 07/18/18 12/29/18 Unknown Rx Metoprolol [Lopressor TAB] 25 mg PO BID #60 tablet 07/18/18 12/29/18 Unknown Rx Acetaminophen [Acetaminophen TAB] 650 mg PO Q4H PRN tablet 12/30/18 Unknown Rx Aspirin EC 325 mg PO QDAY #30 tablet 12/30/18 Unknown Rx AtorvaSTATin [Lipitor] 40 mg PO QHS #30 tablet 12/30/18 Unknown Rx Epoetin Will 10,000 Unit [Procrit] 10,000 unit IV JEANINE PRN #1 vial 12/30/18 Unknown Rx Folic Acid/Vit B Comp W-C [Renal 1 cap PO QDAY #30 capsule 12/30/18 Unknown Rx Caps] Oseltamivir Phosphate [Tamiflu] 30 mg PO DAILY #2 oralsyr 12/30/18 Unknown Rx diphenhydrAMINE [Benadryl CAP] 25 mg PO Q6H PRN #15 capsule 12/30/18 Unknown Rx hydrALAZINE [Apresoline TAB] 2 tab PO Q8HR #90 tablet 12/30/18 12/29/18 Unknown Rx hydrOXYzine HCL [Atarax] 25 mg PO Q8HR PRN #30 12/30/18 12/29/18 Unknown Rx levoFLOXacin [Levaquin TAB] 500 mg PO Q48H #7 tablet 11/20/19 Unknown Rx Active Meds: Active Medications Sodium Chloride (Nacl 0.9%) 100 mls @ 999 mls/hr IV JEANINE PRN PRN Reason: Hypotension Review of Systems All systems: negative Constitutional: fatigue, weakness Respiratory: cough, shortness of breath, dyspnea on exertion, wheezing Exam - Vital Signs Vital signs: Vital Signs Pulse Resp BP Pulse Ox 90 20 149/80 96 01/09/19 05:06 01/09/19 05:06 01/09/19 05:06 01/09/19 05:06 - General Appearance General appearance: well-developed, well-nourished, appears stated age EENT: ATNC, PERRL Neck: Present: neck supple, trachea midline Respiratory: Decreased Breath Sounds Heart: regular, S1S2 Gastrointestinal: Present: normal, normoactive bowel sounds Integumentary: no rash, warm and dry Neurologic: no focal deficit Musculoskeletal: Present: deferred Psychiatric: cooperative Results - Lab Results 01/09/19 05:41 01/09/19 05:41 Most recent lab results Calcium 9.6 mg/dL (8.4-10.2) 01/09/19 05:41 Assessment and Plan - Patient Problems (1) ESRD needing dialysis Current Visit: Yes Status: Chronic Plan to address problem: Plan for hemodialysis today and will put back on Friday inpatient schedule while here in the hospital. UF goal of 3 L this morning. Counseled patient on the importance of compliance with hemodialysis sessions. (2) Volume overload Current Visit: No Status: Acute Plan to address problem: Optimize volume status with ultrafiltration during hemodialysis. We'll monitor daily for need for isolated ultrafiltration. Encouraged compliance with low sodium and fluid restriction. (3) Hyperkalemia Current Visit: No Status: Acute Plan to address problem: We will utilize to 2K dialysate bath during his hemodialysis session. Counseled patient on the importance of low potassium diet. 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 (5) Anemia in chronic kidney disease Current Visit: No Status: Chronic Qualifiers: Chronic kidney disease stage: on chronic dialysis Qualified Code(s): N18.6 - End stage renal disease; D63.1 - Anemia in chronic kidney disease; Z99.2 - Dependence on renal dialysis Plan to address problem: KATRINA therapy with hemodialysis.
--- NOTE | 2019-01-09 12:04 | History and Physical Report ---
History of Present Illness Date of examination: 01/09/19 Date of admission: 01/09/19 07:40 Chief complaint: Shortness of breath History of present illness: Patient is 63yo with hypertension, CAD s/p coronary stents, ESRD on dialysis, chronic CHF and seizure disorder. He presents to Emergency Department because of shortness of breath after missing hemodialysis. he was seen and evaluated in Emergency Department. Labs show hyperkalemia with Potassium 5.8. Chest X ray shows fluid overload, pulmonary edema. he was given Calcium iv, Insulin iv for hyperkalemia. Will admit. Past History Past Medical History: CAD, dialysis, ESRD, heart failure, hypertension, seizures Past Surgical History: PTCA Social history: smoking Family history: cancer, diabetes Medications and Allergies Allergies Allergy/AdvReac Type Severity Reaction Status Date / Time No Known Allergies Allergy Verified 02/28/17 00:21 Home Medications Medication Instructions Recorded Confirmed Last Taken Type Furosemide [Lasix TAB] 40 mg PO QDAY #30 tablet 07/18/18 01/09/19 Unknown Rx Gabapentin 100 mg PO BID #60 capsule 07/18/18 01/09/19 Unknown Rx Metoprolol [Lopressor TAB] 25 mg PO BID #60 tablet 07/18/18 01/09/19 Unknown Rx Acetaminophen [Acetaminophen TAB] 650 mg PO Q4H PRN tablet 12/30/18 01/09/19 Unknown Rx Aspirin EC 325 mg PO QDAY #30 tablet 12/30/18 01/09/19 Unknown Rx AtorvaSTATin [Lipitor] 40 mg PO QHS #30 tablet 12/30/18 01/09/19 Unknown Rx Epoetin Will 10,000 Unit [Procrit] 10,000 unit IV JEANINE PRN #1 vial 12/30/18 01/09/19 Unknown Rx Folic Acid/Vit B Comp W-C [Renal 1 cap PO QDAY #30 capsule 12/30/18 01/09/19 Unknown Rx Caps] diphenhydrAMINE [Benadryl CAP] 25 mg PO Q6H PRN #15 capsule 12/30/18 01/09/19 Unknown Rx hydrALAZINE [Apresoline TAB] 2 tab PO Q8HR #90 tablet 12/30/18 01/09/19 Unknown Rx hydrOXYzine HCL [Atarax] 25 mg PO Q8HR PRN #30 12/30/18 01/09/19 Unknown Rx levoFLOXacin [Levaquin TAB] 500 mg PO Q48H #7 tablet 12/30/18 01/09/19 Unknown Rx Active Meds: Active Medications Sodium Chloride (Nacl 0.9%) 100 mls @ 999 mls/hr IV JEANINE PRN PRN Reason: Hypotension Review of Systems All systems: negative (No fever, no headache, no abd pain. All other systems rev iewed and are negative) Exam - Physical Exam Narrative exam: Gen: Not in acute distress, lying in bed, HEENT: Normocephalic, atraumatic Neck: supple, no JVD Heart: S1 and S2 reg, no murmurs, rubs or gallop Lungs: Bilateral basal rales, no wheeze Abd: soft, non tender, non distended, normal BS, Ext: No edema, no clubbing, no cyanosis Neuro: Awake, alert, oriented X 3, normal speech. moves all ext - Constitutional Vitals: Temp Pulse Resp BP Pulse Ox 98.7 F 77 28 H 136/75 94 01/09/19 11:06 01/09/19 11:15 01/09/19 11:06 01/09/19 11:15 01/09/19 11:06 Results - Labs CBC & Chem 7: 01/09/19 05:41 01/10/19 05:07 Labs: Abnormal lab results 01/09/19 01/09/19 01/09/19 Range/Units 05:41 05:41 08:20 RBC 3.12 L (3.65-5.03) M/mm3 Hgb 10.7 L (11.8-15.2) gm/dl Hct 32.2 L (35.5-45.6) % MCV 103 H (84-94) fl MCH 34 H (28-32) pg RDW 16.0 H (13.2-15.2) % Lymph % (Auto) 8.9 L (13.4-35.0) % [place] % (Auto) 11.3 H (0.0-7.3) % Lymph # 0.7 L (1.2-5.4) K/mm3 Seg Neutrophils % 76.9 H (40.0-70.0) % Potassium 5.8 H (3.6-5.0) mmol/L Carbon Dioxide 19 L (22-30) mmol/L BUN 77 H (9-20) mg/dL Creatinine 13.3 H (0.8-1.5) mg/dL POC Glucose (70-105) Lactic Acid 0.50 L (0.7-2.0) mmol/L Troponin T 0.070 H (0.00-0.029) ng/mL HDL Cholesterol 92 H (40-59) mg/dL 01/09/19 Range/Units 09:52 RBC (3.65-5.03) M/mm3 Hgb (11.8-15.2) gm/dl Hct (35.5-45.6) % MCV (84-94) fl MCH (28-32) pg RDW (13.2-15.2) % Lymph % (Auto) (13.4-35.0) % [place] % (Auto) (0.0-7.3) % Lymph # (1.2-5.4) K/mm3 Seg Neutrophils % (40.0-70.0) % Potassium (3.6-5.0) mmol/L Carbon Dioxide (22-30) mmol/L BUN (9-20) mg/dL Creatinine (0.8-1.5) mg/dL POC Glucose 125 H (70-105) Lactic Acid (0.7-2.0) mmol/L Troponin T (0.00-0.029) ng/mL HDL Cholesterol (40-59) mg/dL Assessment and Plan Acute pulmonary edema from missed hemodialysis Admit to tele Dialysis today Hyperkalemia Calcium carbonate iv ordered Insulin For dialysis ESRD on hemodialysis Nephrology consulted CAD Stable No chest pain Hypertension Monitor BP Full code status
[2019-01-09] MEDS ORDERED: diphenhydrAMINE 50 MG/ML VIAL IV PRN (12:30)
[2019-01-09] MEDS ORDERED: SODIUM CHLORIDE*PRIMING MACHINE ONLY FOR DIALYSIS MC ONE (12:53)
[2019-01-09] MEDS: diphenhydrAMINE 25 MG CAP PO PRN ×2 (16:24→21:48)
[2019-01-09] MEDS: HEPARIN 5,000 UNIT/1 ML VIAL SUB-Q SCH (21:48)
[2019-01-10 06:22] LABS: Calcium 9.4 mg/dL (8.4-10.2)
[2019-01-10] MEDS: diphenhydrAMINE 25 MG CAP PO PRN (09:00)
[2019-01-10] MEDS: HEPARIN 5,000 UNIT/1 ML VIAL SUB-Q SCH (09:01)
[2019-01-10 11:34] VITALS: BP 157/84
--- NOTE | 2019-01-10 12:47 | Progress Note ---
Assessment and Plan - Patient Problems (1) ESRD needing dialysis Current Visit: Yes Status: Chronic Plan to address problem: Tolerated HD yesterday without any issues. No acute HD needs today. Will follow up in our outpatient HD unit tomorrow. Stable for discharge from nephrology standpoint. (2) Volume overload Current Visit: No Status: Acute Plan to address problem: Optimize volume status with ultrafiltration during hemodialysis. Encouraged compliance with low sodium and fluid restriction. (3) Hyperkalemia Current Visit: No Status: Acute Plan to address problem: Improved with HD session. Counseled patient on the importance of low potassium diet. 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 (5) Anemia in chronic kidney disease Current Visit: No Status: Chronic Qualifiers: Chronic kidney disease stage: on chronic dialysis Qualified Code(s): N18.6 - End stage renal disease; D63.1 - Anemia in chronic kidney disease; Z99.2 - Dependence on renal dialysis Plan to address problem: KATRINA therapy with hemodialysis. Subjective Date of service: 01/10/19 Interval history: No acute issues overnight, tolerated HD well, labs reviewed. Objective - Vital Signs Vital signs: Vital Signs - 12hr 01/10/19 01/10/19 01/10/19 03:21 07:06 07:30 Temperature 98.3 F Pulse Rate 79 Respiratory 18 24 Rate Blood Pressure 153/83 Blood Pressure [Left] O2 Sat by Pulse 94 95 Oximetry 01/10/19 01/10/19 08:12 11:31 Temperature 97.9 F 98.4 F Pulse Rate 81 75 Respiratory 18 18 Rate Blood Pressure 157/84 Blood Pressure 157/90 [Left] O2 Sat by Pulse 97 95 Oximetry - General Appearance General appearance: well-developed, well-nourished, appears stated age EENT: ATNC, PERRL Neck: no JVD, no thyromegaly Respiratory: Present: Clear to Ascultation, Normal Exam Cardiology: regular, S1S2 Gastrointestinal: normal, normoactive bowel sounds Integumentary: no rash Neurologic: no focal deficit, alert and oriented x3 Musculoskeletal: deferred Psychiatric: mood/affect appropriate, cooperative - Lab 01/09/19 05:41 01/10/19 05:07 Most recent lab results Calcium 9.4 mg/dL (8.4-10.2) 01/10/19 05:07 - Imaging Chest x-ray: report reviewed Medications & Allergies - Medications Allergies/Adverse Reactions: Allergies No Known Allergies Allergy (Verified 02/28/17 00:21) Home Medications: Home Medications Medication Instructions Recorded Confirmed Last Taken Type Furosemide [Lasix TAB] 40 mg PO QDAY #30 tablet 07/18/18 01/09/19 Unknown Rx Gabapentin 100 mg PO BID #60 capsule 07/18/18 01/09/19 Unknown Rx Metoprolol [Lopressor TAB] 25 mg PO BID #60 tablet 07/18/18 01/09/19 Unknown Rx Acetaminophen [Acetaminophen TAB] 650 mg PO Q4H PRN tablet 12/30/18 01/09/19 Unknown Rx Aspirin EC 325 mg PO QDAY #30 tablet 12/30/18 01/09/19 Unknown Rx AtorvaSTATin [Lipitor] 40 mg PO QHS #30 tablet 12/30/18 01/09/19 Unknown Rx Epoetin Will 10,000 Unit [Procrit] 10,000 unit IV JEANINE PRN #1 vial 12/30/18 01/09/19 Unknown Rx Folic Acid/Vit B Comp W-C [Renal 1 cap PO QDAY #30 capsule 12/30/18 01/09/19 Unknown Rx Caps] diphenhydrAMINE [Benadryl CAP] 25 mg PO Q6H PRN #15 capsule 12/30/18 01/09/19 Unknown Rx hydrALAZINE [Apresoline TAB] 2 tab PO Q8HR #90 tablet 12/30/18 01/09/19 Unknown Rx hydrOXYzine HCL [Atarax] 25 mg PO Q8HR PRN #30 12/30/18 01/09/19 Unknown Rx levoFLOXacin [Levaquin TAB] 500 mg PO Q48H #7 tablet 12/30/18 01/09/19 Unknown Rx Active Medications: Generic Name Dose Route Start Last Admin Trade Name Freq PRN Reason Stop Dose Admin Diphenhydramine HCl 25 mg 01/09/19 14:52 01/10/19 09:00 Benadryl PO 25 mg Q6H PRN Administration Itching Heparin Sodium (Porcine) 5,000 unit 01/09/19 22:00 01/10/19 09:01 Heparin SUB-Q 5,000 unit Q12HR GORDO Administration Sodium Chloride 100 mls @ 999 mls/hr 01/09/19 12:30 Nacl 0.9% IV JEANINE PRN Hypotension
--- NOTE | 2019-01-10 14:21 | Discharge Summary ---
Providers - Providers Date of Admission: 01/09/19 07:40 Date of discharge: 01/10/19 Attending physician: TREY JOHNSON Primary care physician: DEANNA PUENTE MD Hospitalization Condition: Fair Hospital course: Patient is 63yo with hypertension, CAD s/p coronary stents, ESRD on dialysis, chronic CHF and seizure disorder. He presents to Emergency Department because of shortness of breath after missing hemodialysis. he was seen and evaluated in Emergency Department. Labs show hyperkalemia with Potassium 5.8. Chest X ray shows fluid overload, pulmonary edema. he was given Calcium iv, Insulin iv for hyperkalemia. Patient was admitted, evaluated by Nephrology and urgent hemodialysis done. By following day he felt better, no more shortness of breath so was discharged home. Disposition: TO HOME OR SELFCARE - Discharge Diagnoses (1) Hyperkalemia Status: Acute (2) ESRD needing dialysis Status: Chronic (3) Hyperlipidemia Status: Chronic Qualifiers: Hyperlipidemia type: mixed hyperlipidemia Qualified Code(s): E78.2 - Mixed hyperlipidemia (4) Hypertension Status: Chronic Qualifiers: Hypertension type: essential hypertension Qualified Code(s): I10 - Essential (primary) hypertension (5) Chronic diastolic (congestive) heart failure Status: Acute Core Measure Documentation - Palliative Care Palliative Care/ Comfort Measures: Not Applicable - Core Measures Any of the following diagnoses?: heart failure - Heart Failure Discharge Requirements HUNTER/ARB for LVSD if EF <40%: Not Applicable Beta carr[place] at discharge: Yes Exam - Constitutional Vitals: Temp Pulse Resp BP Pulse Ox 98.4 F 75 18 157/84 95 01/10/19 11:31 01/10/19 11:31 01/10/19 11:31 01/10/19 11:31 01/10/19 11:31 Plan Activity: no restrictions Diet: low fat, low cholesterol, low salt, renal Plan of Treatment: 1.Follow up with PCP in 1 week 2.Continue routine hemodialysis as scheduled Follow up with: PRIMARY CAREMD [Primary Care Provider] - 3-5 Days
== END 2019-01-10 17:57 | disposition home or self-care (01) | DRG 291 ==
LOC: ED 04:48 → 4A 07:40
PROVIDERS: ADMIT Internal Medicine; ATTEND Internal Medicine
PROC: 5A1D70Z Performance of Urinary Filtration, Intermittent, Less than 6 Hours Per Day (ICD-10-PCS; principal; 2019-01-09)
DX: I13.2 Hypertensive heart and chronic kidney disease with heart failure and with stage 5 chronic kidney disease, or end stage renal disease (principal); J81.0 Acute pulmonary edema; N18.6 End stage renal disease; I50.33 Acute on chronic diastolic (congestive) heart failure; I69.351 Hemiplegia and hemiparesis following cerebral infarction affecting right dominant side; E87.70 Fluid overload, unspecified; E87.5 Hyperkalemia; D63.1 Anemia in chronic kidney disease; E11.22 Type 2 diabetes mellitus with diabetic chronic kidney disease; I25.10 Atherosclerotic heart disease of native coronary artery without angina pectoris; F17.200 Nicotine dependence, unspecified, uncomplicated; Z99.2 Dependence on renal dialysis; Z79.899 Other long term (current) drug therapy; Z79.82 Long term (current) use of aspirin; Z80.9 Family history of malignant neoplasm, unspecified; Z83.3 Family history of diabetes mellitus; I25.2 Old myocardial infarction; Z95.5 Presence of coronary angioplasty implant and graft; Z72.89 Other problems related to lifestyle
CPT/HCPCS: 36415; 71045; 80048; 80053; 80061; 82140; 82962; 84484; 85025; 87040; 93005; 93010; 96374; 96375; 99406; G0378; J0610; J1200; J1644; J1815; J7030

== ENCOUNTER 2019-02-22 14:02 | Emergency (ER) | payer MEDICARE | END 2019-02-22 16:37 | disposition left against medical advice (07) | LOC: ED 14:02 | DX: L29.8 Other pruritus (principal); Z53.21 Procedure and treatment not carried out due to patient leaving prior to being seen by health care provider ==